=== PATIENT | female | born 1960 | race American Indian/Alaskan Native ===

== ENCOUNTER 2016-11-07 21:46 | Emergency (ER) | payer OTHER ==
[2016-11-07 21:46] VITALS: BMI 50.1
[2016-11-07 21:52] VITALS: TEMP 97.9
[2016-11-07 22:41] LABS: BASO % 0.8 % (0.0-2.0); EOS # 0.1 K/uL (0.0-0.7); EOS % 1.8 % (0.0-4.0); HEMOGLOBIN 12.3 g/dL (11.0-16.0); LYMPH # 1.9 K/uL (1.0-4.3); MEAN CELL VOLUME 76.1 fL (81.0-99.0); MEAN CORPUSCULAR HEMOGLOBIN 24.2 pg (27.0-31.0); MEAN CORPUSCULAR HGB CONC 31.8 g/dL (33.0-37.0); MEAN PLATELET VOLUME 8.2 fL (7.2-11.7); MONO # 0.4 K/uL (0.0-0.8); MONO % 7.4 % (0.0-10.0); NEUT # 3.2 K/uL (1.8-7.0); RBC 5.11 Mil/uL (3.80-5.20); RED CELL DISTRIBUTION WIDTH 13.6 % (11.5-14.5); WHITE BLOOD COUNT 5.7 K/uL (4.8-10.8)
[2016-11-07 22:56] LABS: ALBUMIN 4.2 g/dL (3.5-5.0)
[2016-11-07 22:59] LABS: ALB/GLOB RATIO 1.1 (1.0-2.1); AST/SGOT 44 U/L (14-36); GFR AFRICAN-AMERICAN 47; GFR NON-AFRICAN AMERICAN 39
[2016-11-07 23:00] LABS: ALT/SGPT 28 U/L (9-52); BLOOD UREA NITROGEN 49 mg/dL (7-17); CALCIUM 9.7 mg/dl (8.6-10.4)
[2016-11-07 23:09] LABS: B-TYPE NATRIURETIC PEPTIDE 90.3 pg/mL (0-900)
--- NOTE | 2016-11-07 23:23 | CT ---
EXAM: CT Head Without Intravenous Contrast CLINICAL HISTORY: 56 years old, female; Pain; Headache; Additional info: Breast ca, remission, new blurry vision TECHNIQUE: Axial computed tomography images of the head/brain without intravenous contrast. This CT exam was performed using one or more of the following dose reduction techniques: automated exposure control, adjustment of the mA and/or kV according to patient size, and/or use of iterative reconstruction technique. COMPARISON: No relevant prior studies available. FINDINGS: Brain: Hypodense foci in the white matter, likely related to chronic small vessel ischemic change. No intracranial mass, mass effect, or midline shift. No hemorrhage. Ventricles: Unremarkable. No ventriculomegaly. Bones/joints: Unremarkable. No acute fracture. Soft tissues: Unremarkable. Sinuses: Unremarkable as visualized. No acute sinusitis. Mastoid air cells: Unremarkable as visualized. No mastoid effusion. IMPRESSION: 1. No acute intracranial abnormality. 2. Remainder of findings as above.
--- NOTE | 2016-11-07 23:26 | C.PDOC ---
History Of Present Illness 56 year old female presents to the ED with complaints of weakness, dizziness, and blurred vision worsening for one week. Patient notes a history of breast CA that is in remission and followed by Dr. Darin Gibson. Patient has had an increased dose of Lasix to 40 mg PO BID but ran out yesterday, and admits to aggressively over drinking her diuretics- eating a lot of watermelon. She denies any nausea, vomiting, or fever. Time Seen by Provider: 11/07/16 22:20 Chief Complaint (Nursing): Medical Clearance History Per: Patient History/Exam Limitations: no limitations Onset/Duration Of Symptoms: Days (1 week) Current Symptoms Are (Timing): Still Present Reports Recently: Treated By A Physician Recent travel outside of the [place]: No Additional History Per: Prior Records Past Medical History Reviewed: Historical Data, Nursing Documentation, Vital Signs Vital Signs: Last Vital Signs Temp 97.9 F 11/07/16 21:49 Pulse 94 H 11/07/16 21:49 Resp 18 11/07/16 21:49 BP 137/83 11/07/16 21:49 Pulse Ox 99 11/07/16 23:39 - Medical History PMH: Asthma (CHILDHOOD NO MEDS), Fractures (TOE/ARM NO SURGERY), HTN, Malignancy (BREAST CANCER on chemotherapy), Pneumonia (Childhood) Surgical History: Denies: Pacemaker - [facility] Procedures CONTRAST PHLEBOGRAM NEC (04/10/14) DX ULTRASOUND-THORAX NEC (11/09/13) ENDO RECTUM POLYPECTOMY (11/30/12) INSERTION OF TOTALLY IMPLANTABLE VASC ACCESS DEVIC (11/09/13) LOCAL EXCIS BREAST LES (08/17/13) LYMPHATIC STRUCT BIOPSY (08/17/13) THORAX SFT TISS XRAY NEC (11/09/13) UNILAT EXTEN SIMP MASTEC (07/05/14) UNILAT REDUCT MAMMOPLAST (07/05/14) Family History: States: Unknown Family Hx - Social History Hx Tobacco Use: No Hx Alcohol Use: No Hx Substance Use: No - Immunization History Hx Tetanus Toxoid Vaccination: No Hx Influenza Vaccination: No Hx Pneumococcal Vaccination: No Review Of Systems Constitutional: Positive for: Weakness. Negative for: Fever, Chills ENT: Positive for: Other (blurry vision ) Cardiovascular: Negative for: Chest Pain, Palpitations Respiratory: Negative for: Cough, Shortness of Breath Gastrointestinal: Negative for: Nausea, Vomiting, Abdominal Pain, Diarrhea Neurological: Positive for: Dizziness Physical Exam - Physical Exam Appears: Non-toxic, No Acute Distress Skin: Warm, Dry, Other (Left Mastectomy ) Head: Atraumatic Eye(s): bilateral: Other (Left disonjugate gaze that is baseline. Otherwise normal vision. ) Oral Mucosa: Moist Neck: Supple Cardiovascular: Rhythm Regular Respiratory: Normal Breath Sounds, No Rhonchi, No Wheezing Gastrointestinal/Abdominal: Soft, No Tenderness, No Distention, No Guarding, No Rebound, Other (Abdomen morbidly obese) Extremity: Normal ROM, No Tenderness, No Calf Tenderness, Capillary Refill ( good capillary refill, less than 2 seconds ), Other (Mild edema of the lower extremities. Obese lower extremities. ) ED Course And Treatment - Laboratory Results Result Diagrams: 11/07/16 22:38 11/07/16 22:38 Lab Interpretation: Normal (mild CRI) ECG: Interpreted By Me ECG Rhythm: Sinus Rhythm ECG Interpretation: Normal Rate From EC O2 Sat by Pulse Oximetry: 99 (room air ) Pulse Ox Interpretation: Normal - Radiology CXR: Interpreted by Me, Viewed By [place] CXR Interpretation: Yes: No Acute Disease, Other (Poor inspiration, mediport in the left lung. ) Nexus Criteria: Negative - CT Scan/US CT Head Without Intravenous Contrast Other Rad Studies (CT/US): Read By Radiologist, Radiology Report Reviewed CT/US Interpretation: IMPRESSION: 1. No acute intracranial abnormality. Progress Note: EKG, CXR, and UA were performed. Reevaluation Time: 23:48 Reassessment Condition: Improved (symptoms much improved) Medical Decision Making Medical Decision Making: overdrinking diuretics, ran out of lasix today + mild CHF, legs more obese than edematous Extensively educated to balance fluid intake and lasix with leg edema though our eval is not to determine weather remission persists or if reactive cancer occurs, rather pt much relieved her s/s apparently not due to new CA/ Mets. Disposition Doctor Will See Patient In The: Office Counseled Patient/Family Regarding: Studies Performed, Diagnosis - Disposition Disposition: HOME/ ROUTINE Disposition Time: 23:49 Condition: GOOD Forms: [employer] Connect (Persian) - Clinical Impression Clinical Impression: Vision blurred, Edema of both legs - Scribe Statement The provider has reviewed the documentation as recorded by the Scribe Neela Hudson All medical record entries made by the Cayla were at my direction and personally dictated by me. I have reviewed the chart and agree that the record accurately reflects my personal performance of the history, physical exam, medical decision making, and the department course for this patient. I have also personally directed, reviewed, and agree with the discharge instructions and disposition.
[2016-11-08 00:01] VITALS: BP 124/84; PULSE 80; RESP 78; O2SAT 98
--- NOTE | 2016-11-08 08:24 | RAD ---
PROCEDURE: CHEST RADIOGRAPH, 1 VIEW HISTORY: Shortness of breath COMPARISON: 06/29/2016 FINDINGS: LUNGS: Biapical pleural thickening. Mild venous congestion. Bilateral hilar prominence. Patchy increased markings at the right lung base. Chain sutures noted at the right lung base. Left chest wall port in stable position. PLEURA: No pneumothorax or pleural fluid seen. CARDIOVASCULAR: Normal. OSSEOUS STRUCTURES: Degenerative changes in the spine and shoulders. VISUALIZED UPPER ABDOMEN: Normal. OTHER FINDINGS: None. IMPRESSION: Biapical pleural thickening. Mild venous congestion. Bilateral hilar prominence. Patchy increased markings at the right lung base. Chain sutures noted at the right lung base. Left chest wall port in stable position.
== END 2016-11-08 | disposition home or self-care (01) ==
LOC: C.ER 21:46
DX: H53.8 Other visual disturbances (principal); R60.0 Localized edema

== ENCOUNTER 2017-05-22 07:53 | Inpatient (IN) | payer OTHER ==
[2017-05-22 07:53] VITALS: BMI 50.1
--- NOTE | 2017-05-22 08:18 | C.PDOC ---
History Of Present Illness 57 years old female with history of right sided breast cancer status post mastectomy presents to ER with complaints of right arm swelling associated with shortness of breath for the past 2 weeks. Patient reports arm feels heavy, is painful, and worse with movement. Patient was seen by her oncologist and primary care physician and was sent to ER for further tests and imaging. Denies fever or chills. Onc: Darin Gibson PCP: Beck Morales Time Seen by Provider: 05/22/17 08:08 Chief Complaint (Nursing): Upper Extremity Problem/Injury History Per: Patient History/Exam Limitations: no limitations Onset/Duration Of Symptoms: Days (14) Current Symptoms Are (Timing): Still Present Recent travel outside of the [place]: No Past Medical History Reviewed: Historical Data, Nursing Documentation, Vital Signs Vital Signs: Last Vital Signs Temp 98.2 F 05/22/17 08:02 Pulse 81 05/22/17 11:34 Resp 20 05/22/17 11:34 BP 133/79 05/22/17 11:34 Pulse Ox 99 05/22/17 11:34 - Medical History PMH: Asthma (CHILDHOOD NO MEDS), Fractures (TOE/ARM NO SURGERY), HTN, Malignancy (BREAST CANCER on chemotherapy), Pneumonia (Childhood) Surgical History: Denies: Pacemaker - [facility] Procedures CONTRAST PHLEBOGRAM NEC (04/10/14) DX ULTRASOUND-THORAX NEC (11/09/13) ENDO RECTUM POLYPECTOMY (11/30/12) INSERTION OF TOTALLY IMPLANTABLE VASC ACCESS DEVIC (11/09/13) LOCAL EXCIS BREAST LES (08/17/13) LYMPHATIC STRUCT BIOPSY (08/17/13) THORAX SFT TISS XRAY NEC (11/09/13) UNILAT EXTEN SIMP MASTEC (07/05/14) UNILAT REDUCT MAMMOPLAST (07/05/14) Family History: States: Unknown Family Hx - Social History Hx Tobacco Use: No Hx Alcohol Use: No Hx Substance Use: No - Immunization History Hx Tetanus Toxoid Vaccination: No Hx Influenza Vaccination: No Hx Pneumococcal Vaccination: No Review Of Systems Constitutional: Negative for: Fever, Chills Respiratory: Positive for: Shortness of Breath. Negative for: Cough Gastrointestinal: Negative for: Nausea, Vomiting, Abdominal Pain, Diarrhea Musculoskeletal: Positive for: Other (Right arm swelling) Neurological: Negative for: Weakness, Numbness Physical Exam - Physical Exam Appears: Non-toxic, No Acute Distress, Other (Obese) Skin: Normal Color, Warm, Dry Head: Atraumatic, Normacephalic Eye(s): bilateral: Normal Inspection, EOMI Nose: Normal Oral Mucosa: Moist Neck: Normal ROM Chest: Symmetrical, No Tenderness, Other (right mastectomy, left mammoplasty) Cardiovascular: Rhythm Regular Respiratory: No Rales, No Rhonchi, Wheezing Gastrointestinal/Abdominal: Soft, No Tenderness Extremity: Tenderness, Pedal Edema (mild), Swelling (Right arm edematous, from axillary arm up to mid forearm), No Other (erythema) Pulses: Right Radial: Normal Neurological/Psych: Oriented x3, Normal Speech Gait: Steady ED Course And Treatment - Laboratory Results Result Diagrams: 05/22/17 08:48 05/22/17 09:25 Lab Interpretation: No Acute Changes ECG: Interpreted By Me, Viewed By Me ECG Rhythm: Sinus Rhythm ECG Interpretation: No Acute Changes O2 Sat by Pulse Oximetry: 99 (RA) Pulse Ox Interpretation: Normal - Other Rad CXR X-Ray: Viewed By Me, Read By Radiologist Interpretation: HISTORY: SOB. COMPARISON: Comparison is made with 2016. TECHNIQUE: Chest PA and lateral. FINDINGS: LUNGS: Interval appearance of approximately 1.5 centimeter nodule at the mid to upper portion of the right lung since the previous exam. There is oval-shaped opacity superior to the right hilum appears more conspicuous compared to the previous study. Otherwise no significant interval change. PLEURA: No significant pleural effusion identified. No pneumothorax apparent. CARDIOVASCULAR: Normal. OSSEOUS STRUCTURES: Mild irregularity noted at the right 6th rib without evidence of focal destruction P. VISUALIZED UPPER ABDOMEN: Normal. OTHER FINDINGS: Left-sided [id number] is again seen in place. IMPRESSION: Interval appearance of a new 1.5 centimeter nodule at the right lung. Right perihilar oval-shaped opacity more conspicuous compared to the previous exam. If indicated further assessment by CT may be obtained. Medical Decision Making Medical Decision Making: Impression: h/o Breast Ca, c.o right arm pain and swelling, SOB Plan: Administered Albuterol. Ordered EKG, blood work, CXR, blood culture, Flu AB swab, urinalysis and doppler. Progress: patient has Rx from PCP and Dr Gibson, needs further testing. Will admit patient. Dr Morales does not have admitting privileges , will admit to med acquisition analyst DR Nate Mitchell Arterial PVR/Pressures (Doppler): Mass/ complex structure noted in the right and left shoulder (anterior) Rt. measured Appx: 3-6 x 4.6 cm Lt measured Appx: 1.2 x 2.1 cm Some vascular activity noted on right mass. Disposition Counseled Patient/Family Regarding: Diagnosis, Need For Followup - Disposition Disposition: HOSPITALIZED Disposition Time: 11:31 Condition: STABLE - POA Present On Arrival: None - Clinical Impression Clinical Impression: Edema of both legs, Breast cancer in female, Dyspnea - PA / HUMAN RESOURCES REPRESENTATIVE / Resident Statement MD/DO has reviewed & agrees with the documentation as recorded. - Scribe Statement The provider has reviewed the documentation as recorded by the Scribanthony Lo All medical record entries made by the Ericaibanthony were at my direction and personally dictated by me. I have reviewed the chart and agree that the record accurately reflects my personal performance of the history, physical exam, medical decision making, and the department course for this patient. I have also personally directed, reviewed, and agree with the discharge instructions and disposition.
[2017-05-22] MEDS ORDERED: Albuterol 0.083% Inhal Sol (2.5 mg/3 mL) UD IH STA (08:24)
[2017-05-22 08:57] LABS: BASO % 0.5 % (0.0-2.0); EOS # 0.1 K/uL (0.0-0.7); EOS % 2.1 % (0.0-4.0); HEMOGLOBIN 11.8 g/dL (11.0-16.0); LYMPH # 1.1 K/uL (1.0-4.3); LYMPH % 18.9 % (20.0-40.0); MEAN CELL VOLUME 74.5 fL (81.0-99.0); MEAN CORPUSCULAR HEMOGLOBIN 25.2 pg (27.0-31.0); MEAN CORPUSCULAR HGB CONC 33.8 g/dL (33.0-37.0); MEAN PLATELET VOLUME 7.5 fL (7.2-11.7); MONO # 0.2 K/uL (0.0-0.8); MONO % 4.3 % (0.0-10.0); NEUT # 4.1 K/uL (1.8-7.0); NEUT % 74.2 % (50.0-75.0); RBC 4.68 Mil/uL (3.80-5.20); RED CELL DISTRIBUTION WIDTH 14.6 % (11.5-14.5); WHITE BLOOD COUNT 5.6 K/uL (4.8-10.8)
[2017-05-22] MEDS ORDERED: Albuterol-Ipratrop 3 mg / 0.5 (3 ml) UD ONE (08:57)
[2017-05-22 09:05] LABS: INR 1.1; PROTHROMBIN TIME 12.5 SECONDS (9.7-12.2)
[2017-05-22 09:45] LABS: ALBUMIN 3.9 g/dL (3.5-5.0); ALT/SGPT 21 U/L (9-52); AST/SGOT 24 U/L (14-36); BLOOD UREA NITROGEN 16 mg/dL (7-17); CALCIUM 9.4 mg/dl (8.6-10.4); GFR AFRICAN-AMERICAN > 60; GFR NON-AFRICAN AMERICAN > 60
--- NOTE | 2017-05-22 10:02 | RAD ---
HISTORY: SOB COMPARISON: Comparison is made with 11/07/2016 TECHNIQUE: Chest PA and lateral FINDINGS: LUNGS: Interval appearance of approximately 1.5 centimeter nodule at the mid to upper portion of the right lung since the previous exam. There is oval-shaped opacity superior to the right hilum appears more conspicuous compared to the previous study. Otherwise no significant interval change. PLEURA: No significant pleural effusion identified. No pneumothorax apparent. CARDIOVASCULAR: Normal. OSSEOUS STRUCTURES: Mild irregularity noted at the right 6th rib without evidence of focal destruction P VISUALIZED UPPER ABDOMEN: Normal. OTHER FINDINGS: Left-sided [id number] is again seen in place. IMPRESSION: Interval appearance of a new 1.5 centimeter nodule at the right lung. Right perihilar oval-shaped opacity more conspicuous compared to the previous exam. If indicated further assessment by CT may be obtained.
[2017-05-22 12:36] LABS: SQUAMOUS EPITHIAL 4 /hpf (0-5); URINE BILIRUBIN NEGATIVE (NEGATIVE); URINE BLOOD NEGATIVE (NEGATIVE); URINE CLARITY Hazy (Clear); URINE COLOR Yellow (YELLOW); URINE GLUCOSE (UA) NORMAL (Normal); URINE LEUKOCYTE ESTERASE 2+ Leu/uL (Negative); URINE NITRATE NEGATIVE (NEGATIVE); URINE PROTEIN NEGATIVE (NEGATIVE)
[2017-05-22] MEDS ORDERED: Iodixanol 320 MG/ML 100 ML BOTTLE IV ONE (16:54)
--- NOTE | 2017-05-22 17:05 | CP.PCM.CON ---
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 She was seen in my office n Wednesday and had a swollen and painful RUE. She notes to bone pain at her back and scapula. She denies weightloss and reports her energy level has been okay. She has no headaches. Past medical history: Breast cancer Past surgical history: Right mastectomy with axillar LN dissection, left reductive mammoplasy Family history: Brother had renal cell carcinoma Social history: Denies tobacco, alcohol, and illicit drug use. Allergies: NKA Review of systems: All remaining review of systems including HEENT, cardiovascular, respiratory, gastrointestinal, genitourinary, musculoskeletal, dermatologic, neurologic, and psychiatric are negative unless mentioned in the HPI. Past Patient History - Past Medical History & Family History Past Medical History?: Yes - Past Social History Smoking Status: Never Smoked - CARDIAC Hx Hypertension: Yes Hx Pacemaker: No - PULMONARY Hx Asthma: Yes (CHILDHOOD NO MEDS) Hx Pneumonia: Yes (Childhood) - NEUROLOGICAL Hx Neurological Disorder: No - HEENT Hx HEENT Problems: No Other/Comment: GLASSES - RENAL Hx Chronic Kidney Disease: No - ENDOCRINE/METABOLIC Hx Endocrine Disorders: No - HEMATOLOGICAL/ONCOLOGICAL Hx Cancer: Yes (breast) - INTEGUMENTARY Hx Dermatological Problems: No - MUSCULOSKELETAL/RHEUMATOLOGICAL Hx Fractures: Yes (TOE/ARM NO SURGERY) - GENITOURINARY/GYNECOLOGICAL Hx Genitourinary Disorders: Yes Other/Comment: right breast cancer - PSYCHIATRIC Hx Substance Use: No - SURGICAL HISTORY Hx Surgeries: Yes Hx Section: Yes (one) Other/Comment: breast removal s/p breast ca july 2014. - ANESTHESIA Hx Anesthesia: Yes Hx Anesthesia Reactions: No Hx Malignant Hyperthermia: No Meds Allergies/Adverse Reactions: Allergies Allergy/AdvReac Type Severity Reaction Status Date / Time No Known Allergies Allergy Verified 05/22/17 08:01 - Medications Medications: Current Medications Albuterol/Ipratropium (Duoneb 3 Mg/0.5 Mg (3 Ml) Ud) 3 ml INH RQ6 SARAH Anastrozole (Arimidex 1 Mg Tab) 1 mg PO DAILY [facility] Enoxaparin Sodium (Lovenox) 40 mg SC DAILY [facility] Gabapentin (Neurontin) 400 mg PO TID [facility] Hydrochlorothiazide (Hydrodiuril) 25 mg PO DAILY [facility] Ceftriaxone Sodium 1 gm/ (Sodium Chloride) 100 mls @ 100 mls/hr IVPB DAILY [facility] Azithromycin 500 mg/ Sodium (Chloride) 250 mls @ 250 mls/hr IVPB DAILY [facility] Lisinopril (Zestril) 20 mg PO DAILY [facility] Mometasone Furoate (Asmanex Twisthaler 220 Mcg) 220 puff IH DAILY [facility] Pantoprazole Sodium (Protonix Ec Tab) 40 mg PO DAILY [facility] Tramadol HCl (Ultram) 50 mg PO Q6H PRN PRN Reason: Pain, severe (8-10) Physical Exam - Head Exam Head Exam: ATRAUMATIC - Eye Exam Eye Exam: Normal appearance - ENT Exam ENT Exam: Mucous Membranes Dry - Respiratory Exam Respiratory Exam: NORMAL BREATHING PATTERN - Cardiovascular Exam Cardiovascular Exam: +S1, +S2 - GI/Abdominal Exam GI & Abdominal Exam: Normal Bowel Sounds - Extremities Exam Extremities exam: Positive for: pedal edema - Neurological Exam Neurological exam: Oriented x3 - Psychiatric Exam Psychiatric exam: Normal Affect, Normal Mood - Skin Skin Exam: Warm Results - Vital Signs Recent Vital Signs: Last Vital Signs Temp 98.2 F 05/22/17 08:02 Pulse 83 05/22/17 15:15 Resp 20 05/22/17 15:15 BP 128/72 05/22/17 15:15 Pulse Ox 98 05/22/17 15:15 - Labs Result Diagrams: 05/22/17 08:48 05/22/17 09:25 Labs: Laboratory Results - last 24 hr 05/22/1718 05/22/17 08:18 08:48 08:48 WBC 5.6 RBC 4.68 Hgb 11.8 Hct 34.9 MCV 74.5 L MCH 25.2 L MCHC 33.8 RDW 14.6 H Plt Count 371 MPV 7.5 Neut % (Auto) 74.2 Lymph % (Auto) 18.9 L [place] % (Auto) 4.3 Eos % (Auto) 2.1 Baso % (Auto) 0.5 Neut # (Auto) 4.1 Lymph # (Auto) 1.1 Joseph[place] # (Auto) 0.2 Eos # (Auto) 0.1 Baso # (Auto) 0.0 PT 12.5 H INR 1.1 APTT 31 Sodium Potassium Chloride Carbon Dioxide Anion Gap BUN Creatinine Est GFR ( Amer) Est GFR (Non-Af Amer) Random Glucose Calcium Total Bilirubin AST ALT Alkaline Phosphatase NT-Pro-B Natriuret Pep Total Protein Albumin Globulin Albumin/Globulin Ratio Urine Color Urine Clarity Urine pH Ur Specific [place] Urine Protein Urine Glucose (UA) Urine Ketones Urine Blood Urine Nitrate Urine Bilirubin Urine Urobilinogen Ur Leukocyte Esterase Urine WBC (Auto) Urine RBC (Auto) Ur Squamous Epith Cells Influenza Typ A,B (EIA) Negative for flu a/b 05/22/17 05/22/17 09:25 12:01 WBC RBC Hgb Hct MCV MCH MCHC RDW Plt Count MPV Neut % (Auto) Lymph % (Auto) [place] % (Auto) Eos % (Auto) Baso % (Auto) Neut # (Auto) Lymph # (Auto) [place] # (Auto) Eos # (Auto) Baso # (Auto) PT INR APTT Sodium 138 Potassium 3.5 L Chloride 96 L Carbon Dioxide 32 H Anion Gap 13 BUN 16 Creatinine 0.9 Est GFR ( Amer) > 60 Est GFR (Non-Af Amer) > 60 Random Glucose 98 Calcium 9.4 Total Bilirubin 0.8 AST 24 ALT 21 Alkaline Phosphatase 110 NT-Pro-B Natriuret Pep 91.0 Total Protein 7.7 Albumin 3.9 Globulin 3.9 Albumin/Globulin Ratio 1.0 Urine Color Yellow Urine Clarity Hazy Urine pH 7.0 Ur Specific [place] 1.021 Urine Protein Negative Urine Glucose (UA) Normal Urine Ketones Negative Urine Blood Negative Urine Nitrate Negative Urine Bilirubin Negative Urine Urobilinogen 4.0 H Ur Leukocyte Esterase 2+ H Urine WBC (Auto) 6 H Urine RBC (Auto) 4 H Ur Squamous Epith Cells 4 Influenza Typ A,B (EIA) Assessment & Plan (1) Swelling of right upper extremity Assessment and Plan: rule out DVT, rule out recurrent breast cancer ultrasound performed but results not read yet Status: Acute (2) Breast cancer Assessment and Plan: s/p surgery, chemo, radiation on anastrozole 1mg daily; will restart CT C/A/P and US RUE to rule out recurrent disease Thank you for this interesting consult. Status: Acute
[2017-05-22] MEDS ORDERED: Iohexol 240 (50 ml) PO ONE (17:13)
--- NOTE | 2017-05-22 17:57 | CP.PCM.HP ---
Past Patient History - Past Medical History & Family History Past Medical History?: Yes - Past Social History Smoking Status: Never Smoked - CARDIAC Hx Hypertension: Yes Hx Pacemaker: No - PULMONARY Hx Asthma: Yes (CHILDHOOD NO MEDS) Hx Pneumonia: Yes (Childhood) - NEUROLOGICAL Hx Neurological Disorder: No - HEENT Hx HEENT Problems: No Other/Comment: GLASSES - RENAL Hx Chronic Kidney Disease: No - ENDOCRINE/METABOLIC Hx Endocrine Disorders: No - HEMATOLOGICAL/ONCOLOGICAL Hx Cancer: Yes (breast) - INTEGUMENTARY Hx Dermatological Problems: No - MUSCULOSKELETAL/RHEUMATOLOGICAL Hx Fractures: Yes (TOE/ARM NO SURGERY) - GENITOURINARY/GYNECOLOGICAL Hx Genitourinary Disorders: Yes Other/Comment: right breast cancer - PSYCHIATRIC Hx Substance Use: No - SURGICAL HISTORY Hx Surgeries: Yes Hx Section: Yes (one) Other/Comment: breast removal s/p breast ca july 2014. - ANESTHESIA Hx Anesthesia: Yes Hx Anesthesia Reactions: No Hx Malignant Hyperthermia: No Meds Allergies/Adverse Reactions: Allergies Allergy/AdvReac Type Severity Reaction Status Date / Time No Known Allergies Allergy Verified 05/22/17 08:01 Physical Exam - Constitutional Appears: Well - Head Exam Head Exam: ATRAUMATIC, NORMAL INSPECTION, NORMOCEPHALIC - Eye Exam Eye Exam: EOMI, Normal appearance, PERRL Pupil Exam: NORMAL ACCOMODATION, PERRL - ENT Exam ENT Exam: Mucous Membranes Moist, Normal Exam - Neck Exam Neck exam: Positive for: Normal Inspection - Respiratory Exam Respiratory Exam: Decreased Breath Sounds - Cardiovascular Exam Cardiovascular Exam: REGULAR RHYTHM, +S1, +S2 - GI/Abdominal Exam GI & Abdominal Exam: Diminished Bowel Sounds, Soft - Rectal Exam Rectal Exam: Deferred Results - Vital Signs Recent Vital Signs: Last Vital Signs Temp 98.2 F 05/22/17 08:02 Pulse 77 05/22/17 16:21 Resp 20 05/22/17 16:21 BP 128/69 05/22/17 16:21 Pulse Ox 99 05/22/17 17:30 - Labs Result Diagrams: 05/22/17 08:48 05/22/17 09:25 Labs: Laboratory Results - last 24 hr 05/22/17 05/22/17 05/22/17 08:18 08:48 08:48 WBC 5.6 RBC 4.68 Hgb 11.8 Hct 34.9 MCV 74.5 L MCH 25.2 L MCHC 33.8 RDW 14.6 H Plt Count 371 MPV 7.5 Neut % (Auto) 74.2 Lymph % (Auto) 18.9 L [place] % (Auto) 4.3 Eos % (Auto) 2.1 Baso % (Auto) 0.5 Neut # (Auto) 4.1 Lymph # (Auto) 1.1 [place] # (Auto) 0.2 Eos # (Auto) 0.1 Baso # (Auto) 0.0 PT 12.5 H INR 1.1 APTT 31 Sodium Potassium Chloride Carbon Dioxide Anion Gap BUN Creatinine Est GFR ( Amer) Est GFR (Non-Af Amer) Random Glucose Calcium Total Bilirubin AST ALT Alkaline Phosphatase NT-Pro-B Natriuret Pep Total Protein Albumin Globulin Albumin/Globulin Ratio Urine Color Urine Clarity Urine pH Ur Specific [place] Urine Protein Urine Glucose (UA) Urine Ketones Urine Blood Urine Nitrate Urine Bilirubin Urine Urobilinogen Ur Leukocyte Esterase Urine WBC (Auto) Urine RBC (Auto) Ur Squamous Epith Cells Influenza Typ A,B (EIA) Negative for flu a/b 05/22/17 05/22/17 09:25 12:01 WBC RBC Hgb Hct MCV MCH MCHC RDW Plt Count MPV Neut % (Auto) Lymph % (Auto) [place] % (Auto) Eos % (Auto) Baso % (Auto) Neut # (Auto) Lymph # (Auto) [place] # (Auto) Eos # (Auto) Baso # (Auto) PT INR APTT Sodium 138 Potassium 3.5 L Chloride 96 L Carbon Dioxide 32 H Anion Gap 13 BUN 16 Creatinine 0.9 Est GFR ( Amer) > 60 Est GFR (Non-Af Amer) > 60 Random Glucose 98 Calcium 9.4 Total Bilirubin 0.8 AST 24 ALT 21 Alkaline Phosphatase 110 NT-Pro-B Natriuret Pep 91.0 Total Protein 7.7 Albumin 3.9 Globulin 3.9 Albumin/Globulin Ratio 1.0 Urine Color Yellow Urine Clarity Hazy Urine pH 7.0 Ur Specific [place] 1.021 Urine Protein Negative Urine Glucose (UA) Normal Urine Ketones Negative Urine Blood Negative Urine Nitrate Negative Urine Bilirubin Negative Urine Urobilinogen 4.0 H Ur Leukocyte Esterase 2+ H Urine WBC (Auto) 6 H Urine RBC (Auto) 4 H Ur Squamous Epith Cells 4 Influenza Typ A,B (EIA)
[2017-05-22 19:20] LABS: ABG ALLEN TEST POS; ARTERIAL BLOOD GAS HCO3 29.3 mmol/L (21-28); ARTERIAL BLOOD GAS HEMOGLOBIN 10.5 g/dL (11.7-17.4); ARTERIAL BLOOD GAS O2 SAT 100.6 % (95-98); ARTERIAL BLOOD GAS PCO2 35 mm/Hg (35-45); ARTERIAL BLOOD GAS PH 7.52 (7.35-7.45); ARTERIAL BLOOD GAS PO2 305 mm/Hg (80-100); ARTERIAL BLOOD GAS TCO2 29.7 mmol/L (22-28)
[2017-05-22] MEDS: Albuterol-Ipratrop 3 mg / 0.5 (3 ml) UD INH SCH (19:48)
[2017-05-22] MEDS: Enoxaparin 120 mg Syringe SC SCH (19:59)
--- NOTE | 2017-05-22 20:38 | CT ---
EXAM: CT Angiography Chest With Intravenous Contrast EXAM DATE/TIME: 05/22/2017 7:13 PM CLINICAL HISTORY: 57 years old, female; Signs and symptoms; Dyspnea and shortness of breath; Additional info: Shortness of breathe, R/O pe; breast cancer in TECHNIQUE: Axial computed tomographic angiography images of the chest with intravenous contrast using pulmonary embolism protocol. All CT scans at this facility use one or more dose reduction techniques, viz.: automated exposure control; ma/kV adjustment per patient size (including targeted exams where dose is matched to indication; i.e. head); or iterative reconstruction technique. MIP reconstructed images were created and reviewed. Coronal and sagittal reformatted images were created and reviewed. CONTRAST: 100 mL of VISIPAQUE 320 administered intravenously. COMPARISON: There are no prior studies for comparison. FINDINGS: Heart, aorta and Pulmonary arteries: Contrast is injected from a left upper extremity approach. There is a persistent left superior vena cava. The heart is mildly enlarged.There is fluid in pericardial recesses.There is no aneurysm or dissection. There is perfusion of the 3 arch vessels. Main pulmonary artery is mildly dilated 4 cm in diameter. There is encasement of the right pulmonary artery and its major branches.There are no pulmonary emboli. Lungs and pleural spaces: Trachea and main bronchi are patent. There is patchy airspace disease at the right apex. There are multiple right upper lobe pulmonary nodules too numerous to count. There right lower lobe pulmonary nodules. Largest measures approximately 2.9 x 3.67 m, image 97 series 2. There is scarring and volume loss in the right middle lobe. There are surgical clips in the right middle lobe. There is atelectasis/scarring in the right costophrenic sulcus. There is atelectasis/scarring at the left base. There are occasional small left upper lobe pulmonary nodules. There are no left lower lobe nodules. There is no lobar or segmental consolidation. There are no effusions. Mediastinum: There is paratracheal, right hilar and subcarinal adenopathy. Esophagus is unremarkable. Thyroid: Thyroid is not optimally demonstrated. Bones/joints: Bony structures are osteopenic. There are bridging osteophytes and syndesmophytes throughout the visualized spine. There is partial ankylosis of spinous processes. There is ankylosis of multiple costovertebral joints. There is a heterogeneous sclerotic lesion in the head of the right clavicle. Soft tissues: There is a Port-A-Cath in the left chest wall. Catheter tip is not well-visualized. Lymph nodes: There is shotty axillary nodes. There is skin thickening and scarring in the right chest wall Upper abdomen: There are no acute abnormalities in the visualized portion of the abdomen. IMPRESSION: Multiple bilateral pulmonary nodules right greater than left consistent with metastatic disease; mediastinal and right hilar adenopathy also suspicious for metastatic disease; minimal patchy airspace disease in the right apex; mild cardiomegaly, no aortic aneurysm, dissection or pulmonary embolus Additional nonemergent findings as described above. Additional nonemergent findings as described above.
--- NOTE | 2017-05-22 20:48 | CT ---
EXAM: CT Abdomen and Pelvis With Intravenous Contrast EXAM DATE/TIME: 05/22/2017 4:10 PM CLINICAL HISTORY: 57 years old, female; Pain; Abdominal pain; Flank; Right upper quadrant (ruq); Additional info: HX of breast cancer ? recurrence TECHNIQUE: Axial computed tomography images of the abdomen and pelvis with intravenous contrast. All CT scans at this facility use one or more dose reduction techniques, viz.: automated exposure control; ma/kV adjustment per patient size (including targeted exams where dose is matched to indication; i.e. head); or iterative reconstruction technique. Coronal and sagittal reformatted images were created and reviewed. CONTRAST: 0 mL of VISIPAQUE 320 administered intravenously. COMPARISON: Prior images are not available for review. FINDINGS: Artifacts: Streak artifact degrades image quality. Motion artifact degrades image quality. Lower thorax: The heart is mildly enlarged. There is a small hiatal hernia. There is a 1.4 x 1.6 and meter right lower lobe pulmonary nodule. There is scarring with surgical clips and calcification in the right middle lobe. There is atelectasis/scarring at both lung bases. ABDOMEN: Liver: The liver is enlarged. Gallbladder and bile ducts: unremarkable Pancreas: Pancreas is mildly atrophic. Spleen: unremarkable Adrenals: unremarkable Kidneys and ureters: There is a low attenuation left renal lesion too small to characterize. Kidneys and ureters are otherwise unremarkable. Stomach and bowel: Stomach is partially distended. Rotation is normal. Small bowel is incompletely opacified with oral contrast. There is no obstruction. Ileocecal region is unremarkable. Appendix and terminal ileum are unremarkable. Streak and motion limit evaluation of the colon. Colon is incompletely distended which limits evaluation. Appendix: See stomach and bowel PELVIS: Bladder: unremarkable Reproductive: Uterus and adnexal structures are unremarkable. ABDOMEN and PELVIS: Intraperitoneal space: There is no free air or free fluid. Bones/joints: There are degenerative changes in the osseus structures. There is a sclerotic lesion at L3. There is a sclerotic lesion in the sacrum. Soft tissues: There is a fat-containing umbilical hernia. Vasculature: Vascular structures are unremarkable. Lymph nodes: There is no pathologic adenopathy. IMPRESSION: Right lower lobe pulmonary nodule suspicious for metastatic disease; hepatomegaly, no acute solid visceral or bowel abnormality; sclerotic lesions in L3 and in the sacrum metastatic disease cannot be excluded Additional nonemergent findings as described above.
[2017-05-23] MEDS: Albuterol-Ipratrop 3 mg / 0.5 (3 ml) UD INH SCH ×3 (01:30→20:47)
[2017-05-23] MEDS: Enoxaparin 120 mg Syringe SC SCH ×2 (06:24→17:57)
[2017-05-23] MEDS: Azithromycin 500 MG in Sodium Chloride 0.9% 250 ML IVPB SCH (09:22)
[2017-05-23] MEDS ORDERED: Mometasone 220 mcg/puff-14 puff Inh IH SCH (10:00)
[2017-05-23] MEDS ORDERED: Enoxaparin 40 mg Syringe SC SCH (10:00)
[2017-05-23] MEDS ORDERED: Pantoprazole 40 mg EC Tab PO SCH (10:00)
--- NOTE | 2017-05-23 13:54 | CP.PCM.PN ---
Subjective - Date & Time of Evaluation Date of Evaluation: 05/23/17 Time of Evaluation: 11:40 - Subjective Subjective: clinically same Objective - Vital Signs/Intake and Output Vital Signs (last 24 hours): Temp Pulse Resp BP Pulse Ox 97.6 F 66 20 107/70 98 05/23/17 08:00 05/23/17 08:00 05/23/17 08:00 05/23/17 08:00 05/23/17 08:00 Intake and Output: 05/23/17 05/23/17 06:59 18:59 Intake Total 200 Balance 200 - Medications Medications: Current Medications Albuterol/Ipratropium (Duoneb 3 Mg/0.5 Mg (3 Ml) Ud) 3 ml INH RQ6 [facility] Last Admin: 05/23/17 07:31 Dose: 3 ml Anastrozole (Arimidex 1 Mg Tab) 1 mg PO DAILY [facility] Last Admin: 05/23/17 10:04 Dose: 1 mg Enoxaparin Sodium (Lovenox) 120 mg SC Q12H [facility] Last Admin: 05/23/17 06:24 Dose: 120 mg Gabapentin (Neurontin) 400 mg PO TID [facility] Last Admin: 05/23/17 09:30 Dose: 400 mg Hydrochlorothiazide (Hydrodiuril) 25 mg PO DAILY [facility] Last Admin: 05/23/17 09:31 Dose: 25 mg Ceftriaxone Sodium 1 gm/ (Sodium Chloride) 100 mls @ 100 mls/hr IVPB DAILY [facility] Last Admin: 05/23/17 11:10 Dose: 100 mls/hr Azithromycin 500 mg/ Sodium (Chloride) 250 mls @ 250 mls/hr IVPB DAILY [facility] Last Admin: 05/23/17 09:22 Dose: 250 mls/hr Lisinopril (Zestril) 20 mg PO DAILY [facility] Last Admin: 05/23/17 09:32 Dose: 20 mg Mometasone Furoate (Asmanex Twisthaler 220 Mcg) 220 puff IH DAILY [facility] Pantoprazole Sodium (Protonix Inj) 40 mg IVP DAILY [facility] Last Admin: 05/23/17 09:22 Dose: 40 mg Tramadol HCl (Ultram) 50 mg PO Q6H PRN PRN Reason: Pain, severe (8-10) - Labs Labs: 05/22/17 08:48 02/17/18 09:25 PT 12.5 SECONDS (9.7-12.2) H 05/22/17 08:48 INR 1.1 05/22/17 08:48 APTT 31 SECONDS (21-34) 05/22/17 08:48 - Constitutional Appears: Well - Head Exam Head Exam: ATRAUMATIC, NORMAL INSPECTION, NORMOCEPHALIC - Eye Exam Eye Exam: EOMI, Normal appearance, PERRL Pupil Exam: NORMAL ACCOMODATION, PERRL - ENT Exam ENT Exam: Mucous Membranes Moist, Normal Exam - Neck Exam Neck Exam: Full ROM, Normal Inspection. absent: Lymphadenopathy - Respiratory Exam Respiratory Exam: Decreased Breath Sounds - Cardiovascular Exam Cardiovascular Exam: REGULAR RHYTHM, +S1, +S2 - GI/Abdominal Exam GI & Abdominal Exam: Soft, Diminished Bowel Sounds - Rectal Exam Rectal Exam: Deferred Assessment and Plan - Assessment and Plan (Free Text) Plan: arterial PVR/Pressures (Doppler): Mass/ complex structure noted in the right and left shoulder (anterior) Rt. measured Appx: 3-6 x 4.6 cm Lt measured Appx: 1.2 x 2.1 cm Some vascular activity noted on right mass followup by dr. cleary vasc surg cnsult with dr. cleary.. venous doppler telemtry s/p dr sweta pulido with rocephin and zithromax
--- NOTE | 2017-05-23 19:14 | CP.PCM.CON ---
History of Present Illness - History of Present Illness History of Present Illness: reason for consultatio: shortness of breath Patient is 57 year old female with breast cancer status post right mastectomy presented to emergency room complaining of right arm swelling, shortness of breath progressively worsening for the past 2 weeks. patient as seen by her oncologist and advised her to go to the emergency room. Denies fever chills, denies chest pain. CAT scan of the chest with contrast showed no pulmonary embolism but consistent with possible metastatic dise/pneumonia Review of Systems - Review of Systems All systems: reviewed and no additional remarkable complaints except (shortness of breath) Past Patient History - Past Medical History & Family History Past Medical History?: Yes - Past Social History Smoking Status: Never Smoked - CARDIAC Hx Hypertension: Yes Hx Pacemaker: No - PULMONARY Hx Asthma: Yes (CHILDHOOD NO MEDS) Hx Pneumonia: Yes (Childhood) - NEUROLOGICAL Hx Neurological Disorder: No - HEENT Hx HEENT Problems: No Other/Comment: GLASSES - RENAL Hx Chronic Kidney Disease: No - ENDOCRINE/METABOLIC Hx Endocrine Disorders: No - HEMATOLOGICAL/ONCOLOGICAL Hx Cancer: Yes (breast) - INTEGUMENTARY Hx Dermatological Problems: No - MUSCULOSKELETAL/RHEUMATOLOGICAL Hx Falls: No Hx Fractures: Yes (TOE/ARM NO SURGERY) - GENITOURINARY/GYNECOLOGICAL Hx Genitourinary Disorders: Yes Other/Comment: right breast cancer - PSYCHIATRIC Hx Substance Use: No - SURGICAL HISTORY Hx Surgeries: Yes Hx Section: Yes (one) Other/Comment: breast removal s/p breast ca july 2014. - ANESTHESIA Hx Anesthesia: Yes Hx Anesthesia Reactions: No Hx Malignant Hyperthermia: No Meds Allergies/Adverse Reactions: Allergies Allergy/AdvReac Type Severity Reaction Status Date / Time No Known Allergies Allergy Verified 05/22/17 08:01 - Medications Medications: Current Medications Albuterol/Ipratropium (Duoneb 3 Mg/0.5 Mg (3 Ml) Ud) 3 ml INH RQ6 [facility] Last Admin: 05/23/17 07:31 Dose: 3 ml Anastrozole (Arimidex 1 Mg Tab) 1 mg PO DAILY [facility] Last Admin: 05/23/17 10:04 Dose: 1 mg Enoxaparin Sodium (Lovenox) 40 mg SC DAILY [facility] Gabapentin (Neurontin) 400 mg PO TID [facility] Last Admin: 05/23/17 17:57 Dose: 400 mg Hydrochlorothiazide (Hydrodiuril) 25 mg PO DAILY [facility] Last Admin: 05/23/17 09:31 Dose: 25 mg Ceftriaxone Sodium 1 gm/ (Sodium Chloride) 100 mls @ 100 mls/hr IVPB DAILY [facility] Last Admin: 05/23/17 11:10 Dose: 100 mls/hr Azithromycin 500 mg/ Sodium (Chloride) 250 mls @ 250 mls/hr IVPB DAILY [facility] Last Admin: 05/23/17 09:22 Dose: 250 mls/hr Lisinopril (Zestril) 20 mg PO DAILY [facility] Last Admin: 05/23/17 09:32 Dose: 20 mg Mometasone Furoate (Asmanex Twisthaler 220 Mcg) 220 puff IH DAILY [facility] Pantoprazole Sodium (Protonix Inj) 40 mg IVP DAILY [facility] Last Admin: 05/23/17 09:22 Dose: 40 mg Tramadol HCl (Ultram) 50 mg PO Q6H PRN PRN Reason: Pain, severe (8-10) Last Admin: 05/23/17 14:12 Dose: 50 mg Physical Exam - Head Exam Head Exam: ATRAUMATIC, NORMOCEPHALIC - Eye Exam Eye Exam: Normal appearance - ENT Exam ENT Exam: Mucous Membranes Moist - Neck Exam Neck exam: Positive for: Normal Inspection - Respiratory Exam Respiratory Exam: Decreased Breath Sounds - Cardiovascular Exam Cardiovascular Exam: REGULAR RHYTHM Results - Vital Signs Recent Vital Signs: Last Vital Signs Temp 98.0 F 05/23/17 17:07 Pulse 70 05/23/17 17:07 Resp 20 05/23/17 17:07 BP 107/71 05/23/17 17:07 Pulse Ox 96 05/23/17 17:07 - Labs Result Diagrams: 05/22/17 08:48 05/22/17 09:25 Labs: Laboratory Results - last 24 hr 05/22/17 19:16 Puncture Site Rba pCO2 35 pO2 305 H HCO3 29.3 H ABG pH 7.52 H ABG Total CO2 29.7 H ABG O2 Saturation 100.6 H ABG Base Excess 5.6 H ABG Hemoglobin 10.5 L ABG Carboxyhemoglobin 2.5 H POC ABG HHb (Measured) -0.6 L ABG Methemoglobin 1.6 Williams Test Pos A-a O2 Difference 364.0 Respiratory Index 1.2 Hgb O2 Saturation 96.4 Vent Mode Bipap FiO2 100.0 Inspiratory BiPAP 10 Expiratory BiPAP 5 Assessment & Plan - Assessment and Plan (Free Text) Assessment: 57 years old female with history of right sided breast cancer status post mastectomy presents to ER with complaints of right arm swelling associated with shortness of breath for the past 2 weeks. shortness of breath most likely secondary to pneumonia/ Continue IV antibiotics Nebulizer treatment BiPAP as needed IV steroids
[2017-05-23] MEDS: MethylPREDNISolone 40 mg Vial IVP SCH (21:58)
[2017-05-24] MEDS: Albuterol-Ipratrop 3 mg / 0.5 (3 ml) UD INH SCH ×4 (02:05→20:10)
[2017-05-24] MEDS: MethylPREDNISolone 40 mg Vial IVP SCH ×3 (05:18→21:08)
[2017-05-24] MEDS: Potassium Chloride 10 mEq ER Tab PO SCH (08:47)
[2017-05-24] MEDS: Enoxaparin 40 mg Syringe SC SCH (09:30)
[2017-05-24] MEDS: Azithromycin 500 MG in Sodium Chloride 0.9% 250 ML IVPB SCH (10:55)
[2017-05-24 12:02] LABS: BASO % 0.1 % (0.0-2.0); HEMOGLOBIN 11.5 g/dL (11.0-16.0); LYMPH # 0.4 K/uL (1.0-4.3); LYMPH % 7.5 % (20.0-40.0); MEAN CELL VOLUME 74.7 fL (81.0-99.0); MEAN CORPUSCULAR HEMOGLOBIN 24.5 pg (27.0-31.0); MEAN CORPUSCULAR HGB CONC 32.8 g/dL (33.0-37.0); MEAN PLATELET VOLUME 7.9 fL (7.2-11.7); MONO % 0.6 % (0.0-10.0); NEUT # 4.5 K/uL (1.8-7.0); NEUT % 91.8 % (50.0-75.0); PLATELET COUNT 350 K/uL (130-400); RBC 4.67 Mil/uL (3.80-5.20); RED CELL DISTRIBUTION WIDTH 14.7 % (11.5-14.5); WHITE BLOOD COUNT 4.9 K/uL (4.8-10.8)
[2017-05-24 12:17] LABS: ALBUMIN 3.9 g/dL (3.5-5.0); ALT/SGPT 13 U/L (9-52); AST/SGOT 24 U/L (14-36); BLOOD UREA NITROGEN 16 mg/dL (7-17); CALCIUM 9.6 mg/dl (8.6-10.4); GFR AFRICAN-AMERICAN > 60; GFR NON-AFRICAN AMERICAN > 60
[2017-05-24 12:58] LABS: LYMPHOCYTE 9 % (20-40); NEUTROPHIL 91 % (50-75); PLATELET ESTIMATE NORMAL (NORMAL); TOTAL CELLS COUNTED 100
--- NOTE | 2017-05-24 14:16 | CP.PCM.PN ---
Subjective - Date & Time of Evaluation Date of Evaluation: 05/24/17 Time of Evaluation: 11:35 - Subjective Subjective: Patient was seen and evaluated. She states that her breathing has improved but continues to feel short of breath on exertion. She was able to tolerate food this morning. She denies any fever, chills, nausea, vomiting. Assessment and Plan: Patient is a 57 y.o F with PMH of right-sided breast cancer s/p neoadjuvant chemotherapy, mastectomy and axillary LN dissection, radiation, on hormonal therapy who presented with RUE swelling and SOB most likely due to malignancy or PNA. SOB: -Chest CT on 05/22 showed multiple bilateral pulmonary nodules right greater than left consistent with metastatic disease: mediastinal and right hilar adenopathy also suspicious for metastatic disease; minimal patchy airspace disease in the right apex; mild cardiomegaly, no aortic aneurysm, dissection or pulmonary embolus -Continue IV abx -Nebulizer treatments -BiPAP as needed -Solu-medrol -Blood culture negative x2 -Heme/onc following for hx of breast cancer Objective - Vital Signs/Intake and Output Vital Signs (last 24 hours): Temp Pulse Resp BP Pulse Ox 97.9 F 59 L 21 108/69 100 05/24/17 07:40 05/24/17 07:40 05/24/17 07:40 05/24/17 07:40 05/24/17 07:40 - Medications Medications: Current Medications Albuterol/Ipratropium (Duoneb 3 Mg/0.5 Mg (3 Ml) Ud) 3 ml INH RQ6 [facility] Last Admin: 05/24/17 07:33 Dose: 3 ml Anastrozole (Arimidex 1 Mg Tab) 1 mg PO DAILY [facility] Last Admin: 05/24/17 09:34 Dose: 1 mg Enoxaparin Sodium (Lovenox) 40 mg SC DAILY [facility] Last Admin: 05/24/17 09:30 Dose: 40 mg Gabapentin (Neurontin) 400 mg PO TID [facility] Last Admin: 05/24/17 13:43 Dose: 400 mg Hydrochlorothiazide (Hydrodiuril) 25 mg PO DAILY [facility] Last Admin: 05/24/17 09:29 Dose: 25 mg Ceftriaxone Sodium 1 gm/ (Sodium Chloride) 100 mls @ 100 mls/hr IVPB DAILY [facility] Last Admin: 05/24/17 09:29 Dose: 100 mls/hr Azithromycin 500 mg/ Sodium (Chloride) 250 mls @ 250 mls/hr IVPB DAILY [facility] Last Admin: 05/24/17 10:55 Dose: 250 mls/hr Lisinopril (Zestril) 20 mg PO DAILY [facility] Last Admin: 05/24/17 09:29 Dose: 20 mg Methylprednisolone (Solu-Medrol) 40 mg IVP Q8 [facility] Last Admin: 05/24/17 13:42 Dose: 40 mg Pantoprazole Sodium (Protonix Inj) 40 mg IVP DAILY [facility] Last Admin: 05/24/17 09:30 Dose: 40 mg Potassium Chloride (Klor-Con 10) 10 meq PO BRK [facility] Last Admin: 05/24/17 08:47 Dose: 10 meq Tramadol HCl (Ultram) 50 mg PO Q6H PRN PRN Reason: Pain, severe (8-10) Last Admin: 05/23/17 14:12 Dose: 50 mg - Labs Labs: 05/24/17 11:48 05/24/17 11:48 PT 12.5 SECONDS (9.7-12.2) H 05/22/17 08:48 INR 1.1 05/22/17 08:48 APTT 31 SECONDS (21-34) 05/22/17 08:48
--- NOTE | 2017-05-24 14:41 | VASCLAB ---
PROCEDURE: Right Upper Extremity Venous Duplex Exam HISTORY: swelling and pain to RUE PRIORS: None. TECHNIQUE: Right upper extremity, internal jugular, subclavian, axillary, brachial, ulnar, radial, basilic and upper cephalic veins were evaluated. Flow was assessed with color Doppler, compressibility, assessment of phasic flow and augmentation response. Report prepared by special procedure technologist. FINDINGS: RIGHT: 1. Internal Jugular: 1.1. Compressibility - Fully compressible: Thrombus - None : Flow - Phasic: Augmentation -Normal: Reflux - None. 2. Subclavian: 2.1. Compressibility - Fully compressible: Thrombus - None : Flow - Phasic: Augmentation -Normal: Reflux - None. 3. Axillary: 3.1. Compressibility - Fully compressible: Thrombus - None : Flow - Phasic: Augmentation -Normal: Reflux - None. 4. Brachial: 4.1. Compressibility - Fully compressible: Thrombus - None: Flow - Phasic: Augmentation -Normal: Reflux - None. 5. Ulnar: 5.1. Compressibility - Fully compressible: Thrombus - None: Flow - Phasic: Augmentation -Normal: Reflux - None. 6. Radial: 6.1. Compressibility - Fully compressible: Thrombus - None: Flow - Phasic: Augmentation - Normal: Reflux - None. 7. Cephalic: 7.1. Compressibility - Fully compressible: Thrombus - None: Flow - Phasic: Augmentation -Normal: Reflux - None. 8. Basilic: 8.1. Compressibility - Fully compressible: Thrombus - None: Flow - Phasic: Augmentation -Normal: Reflux - None. OTHER FINDINGS: Right: There was a mass/complex structure with some vascular activity noted in the right infraclavicular shoulder area measuring approximately 3.6 X 4.6 cm There was a small homogeneous structure/possible lymph node noted in the left infraclavicular shoulder area measuring approximately 1.2 X 2.1 cm Team taking care of the patient was made aware of these findings after completion of the examination. IMPRESSION: Right: No evidence of vein thrombosis of the right upper extremity with excellent venous flow. Normal valve function noted of the right side. Normal venous flow noted in the left internal jugular and left subclavian veins.
[2017-05-24 16:43] VITALS: RESP 20
--- NOTE | 2017-05-24 17:31 | CP.PCM.PN ---
Subjective - Date & Time of Evaluation Date of Evaluation: 05/24/17 Time of Evaluation: 11:40 - Subjective Subjective: clinically same Objective - Vital Signs/Intake and Output Vital Signs (last 24 hours): Temp Pulse Resp BP Pulse Ox 97.8 F 79 20 100/67 98 05/24/17 16:42 05/24/17 16:42 05/24/17 16:42 05/24/17 16:42 05/24/17 16:42 - Medications Medications: Current Medications Albuterol/Ipratropium (Duoneb 3 Mg/0.5 Mg (3 Ml) Ud) 3 ml INH RQ6 [facility] Last Admin: 05/24/17 14:22 Dose: 3 ml Anastrozole (Arimidex 1 Mg Tab) 1 mg PO DAILY [facility] Last Admin: 05/24/17 09:34 Dose: 1 mg Enoxaparin Sodium (Lovenox) 40 mg SC DAILY [facility] Last Admin: 05/24/17 09:30 Dose: 40 mg Gabapentin (Neurontin) 400 mg PO TID [facility] Last Admin: 05/24/17 17:25 Dose: 400 mg Hydrochlorothiazide (Hydrodiuril) 25 mg PO DAILY [facility] Last Admin: 05/24/17 09:29 Dose: 25 mg Ceftriaxone Sodium 1 gm/ (Sodium Chloride) 100 mls @ 100 mls/hr IVPB DAILY [facility] Last Admin: 05/24/17 09:29 Dose: 100 mls/hr Azithromycin 500 mg/ Sodium (Chloride) 250 mls @ 250 mls/hr IVPB DAILY [facility] Last Admin: 05/24/17 10:55 Dose: 250 mls/hr Lisinopril (Zestril) 20 mg PO DAILY [facility] Last Admin: 05/24/17 09:29 Dose: 20 mg Methylprednisolone (Solu-Medrol) 40 mg IVP Q8 [facility] Last Admin: 05/24/17 13:42 Dose: 40 mg Pantoprazole Sodium (Protonix Inj) 40 mg IVP DAILY [facility] Last Admin: 05/24/17 09:30 Dose: 40 mg Potassium Chloride (Klor-Con 10) 10 meq PO BRK [facility] Last Admin: 05/24/17 08:47 Dose: 10 meq Tramadol HCl (Ultram) 50 mg PO Q6H PRN PRN Reason: Pain, severe (8-10) Last Admin: 05/23/17 14:12 Dose: 50 mg - Labs Labs: 05/24/17 11:48 05/24/17 11:48 PT 12.5 SECONDS (9.7-12.2) H 05/22/17 08:48 INR 1.1 05/22/17 08:48 APTT 31 SECONDS (21-34) 05/22/17 08:48 - Constitutional Appears: Well - Head Exam Head Exam: ATRAUMATIC, NORMAL INSPECTION, NORMOCEPHALIC - Eye Exam Eye Exam: EOMI, Normal appearance, PERRL Pupil Exam: NORMAL ACCOMODATION, PERRL - ENT Exam ENT Exam: Mucous Membranes Moist, Normal Exam - Neck Exam Neck Exam: Full ROM, Normal Inspection. absent: Lymphadenopathy - Respiratory Exam Respiratory Exam: Decreased Breath Sounds - Cardiovascular Exam Cardiovascular Exam: REGULAR RHYTHM, +S1, +S2 - GI/Abdominal Exam GI & Abdominal Exam: Soft, Diminished Bowel Sounds - Rectal Exam Rectal Exam: Deferred
--- NOTE | 2017-05-24 18:59 | CP.PCM.CON ---
History of Present Illness - History of Present Illness History of Present Illness: Vascular Surgery- Dr. Lorenz 57F morbidly obese pmhx significant for breast ca, bilateral mastectomy in 2014 , last chemo and XRT in 2015, HTN presented to [facility] ED for RUE pain and intermittent swelling over the last 1 month, and chest pain w/ shortness of breath getting worse over the last 2 weeks. Vascular surgery was consulted for the possibility of vascular compromise causing the swelling. Currently patient' s arm is not swollen, however has pain with shoulder abduction. Currently denies: Fevers, chills, chest pain, shortness of breath, nausea, vomiting, diarrhea, sudden changes in vision, loss of consciousness. PMH: HTN, Breast Ca PSH: bilateral mastectomy s/p chemo & XRT ALL: NKDA SocialHx: Denies tobacco, ETOH, recreational drug use Review of Systems - Review of Systems All systems: reviewed and no additional remarkable complaints except - Constitutional Constitutional: As Per HPI Past Patient History - Past Medical History & Family History Past Medical History?: Yes - Past Social History Smoking Status: Never Smoked - CARDIAC Hx Hypertension: Yes Hx Pacemaker: No - PULMONARY Hx Asthma: Yes (CHILDHOOD NO MEDS) Hx Pneumonia: Yes (Childhood) - NEUROLOGICAL Hx Neurological Disorder: No - HEENT Hx HEENT Problems: No Other/Comment: GLASSES - RENAL Hx Chronic Kidney Disease: No - ENDOCRINE/METABOLIC Hx Endocrine Disorders: No - HEMATOLOGICAL/ONCOLOGICAL Hx Cancer: Yes (breast) - INTEGUMENTARY Hx Dermatological Problems: No - MUSCULOSKELETAL/RHEUMATOLOGICAL Hx Falls: No Hx Fractures: Yes (TOE/ARM NO SURGERY) - GENITOURINARY/GYNECOLOGICAL Hx Genitourinary Disorders: Yes Other/Comment: right breast cancer - PSYCHIATRIC Hx Substance Use: No - SURGICAL HISTORY Hx Surgeries: Yes Hx Section: Yes (one) Other/Comment: breast removal s/p breast ca july 2014. - ANESTHESIA Hx Anesthesia: Yes Hx Anesthesia Reactions: No Hx Malignant Hyperthermia: No Meds Allergies/Adverse Reactions: Allergies Allergy/AdvReac Type Severity Reaction Status Date / Time No Known Allergies Allergy Verified 05/22/17 08:01 - Medications Medications: Current Medications Albuterol/Ipratropium (Duoneb 3 Mg/0.5 Mg (3 Ml) Ud) 3 ml INH RQ6 [facility] Last Admin: 05/24/17 14:22 Dose: 3 ml Anastrozole (Arimidex 1 Mg Tab) 1 mg PO DAILY [facility] Last Admin: 05/24/17 09:34 Dose: 1 mg Enoxaparin Sodium (Lovenox) 40 mg SC DAILY [facility] Last Admin: 05/24/17 09:30 Dose: 40 mg Gabapentin (Neurontin) 400 mg PO TID [facility] Last Admin: 05/24/17 17:25 Dose: 400 mg Hydrochlorothiazide (Hydrodiuril) 25 mg PO DAILY [facility] Last Admin: 05/24/17 09:29 Dose: 25 mg Ceftriaxone Sodium 1 gm/ (Sodium Chloride) 100 mls @ 100 mls/hr IVPB DAILY [facility] Last Admin: 05/24/17 09:29 Dose: 100 mls/hr Azithromycin 500 mg/ Sodium (Chloride) 250 mls @ 250 mls/hr IVPB DAILY [facility] Last Admin: 05/24/17 10:55 Dose: 250 mls/hr Lisinopril (Zestril) 20 mg PO DAILY [facility] Last Admin: 05/24/17 09:29 Dose: 20 mg Methylprednisolone (Solu-Medrol) 40 mg IVP Q8 [facility] Last Admin: 05/24/17 13:42 Dose: 40 mg Pantoprazole Sodium (Protonix Inj) 40 mg IVP DAILY [facility] Last Admin: 05/24/17 09:30 Dose: 40 mg Potassium Chloride (Klor-Con 10) 10 meq PO BRK [facility] Last Admin: 05/24/17 08:47 Dose: 10 meq Tramadol HCl (Ultram) 50 mg PO Q6H PRN PRN Reason: Pain, severe (8-10) Last Admin: 05/23/17 14:12 Dose: 50 mg Physical Exam - Constitutional Appears: Non-toxic, No Acute Distress - Head Exam Head Exam: ATRAUMATIC - Eye Exam Eye Exam: EOMI. absent: Scleral icterus - Respiratory Exam Respiratory Exam: NORMAL BREATHING PATTERN. absent: Accessory Muscle Use, Respiratory Distress - Cardiovascular Exam Cardiovascular Exam: +S1, +S2. absent: Bradycardia, Tachycardia - GI/Abdominal Exam GI & Abdominal Exam: Soft. absent: Distended, Firm, Guarding, Tenderness - Extremities Exam Additional comments: + 2radial pulses bilateral no edema or swelling in b/L upper extremities +2 PT and DP pulses b/L - Neurological Exam Neurological exam: Alert, Oriented x3 - Skin Skin Exam: Intact, Warm Results - Vital Signs Recent Vital Signs: Last Vital Signs Temp 97.8 F 05/24/17 16:42 Pulse 79 05/24/17 16:42 Resp 20 05/24/17 16:42 BP 100/67 05/24/17 16:42 Pulse Ox 98 05/24/17 16:42 - Labs Result Diagrams: 05/24/17 11:48 05/24/17 11:48 Labs: Laboratory Results - last 24 hr 05/24/17 05/24/17 11:48 11:48 WBC 4.9 RBC 4.67 Hgb 11.5 Hct 34.9 MCV 74.7 L MCH 24.5 L MCHC 32.8 L RDW 14.7 H Plt Count 350 MPV 7.9 Neut % (Auto) 91.8 H Lymph % (Auto) 7.5 L Victoria % (Auto) 0.6 Eos % (Auto) 0.0 Baso % (Auto) 0.1 Neut # (Auto) 4.5 Lymph # (Auto) 0.4 L Victoria # (Auto) 0.0 Eos # (Auto) 0.0 Baso # (Auto) 0.0 Neutrophils % (Manual) 91 H Lymphocytes % (Manual) 9 L Monocytes % (Manual) TEST NOT PERFORMED Platelet Estimate Normal RBC Morphology Normal Sodium 136 Potassium 3.6 Chloride 97 L Carbon Dioxide 25 Anion Gap 18 BUN 16 Creatinine 0.8 Est GFR ( Amer) > 60 Est GFR (Non-Af Amer) > 60 Random Glucose 229 H Calcium 9.6 Total Bilirubin 0.6 AST 24 ALT 13 Alkaline Phosphatase 103 Total Protein 7.9 Albumin 3.9 Globulin 4.0 H Albumin/Globulin Ratio 1.0 Assessment & Plan - Assessment and Plan (Free Text) Assessment: 57F w/ intermittent RUE swelling and pain for 1 month Duplex showed no UE DVT CT: shows possible malginancy in R. Lung Plan: - recommend Physical therapy and compression - f/u w/ Dr. Gibson Heme/Onc - no signs of acute vascular compromise - no surgical intervention indicated at this time - further recs per Dr. Kelechi Blackwood PGY1
--- NOTE | 2017-05-24 22:47 | CARD ---
APPROVED REPORT EKG Measurement Heart [id number] [id number] <Conclusion> Normal sinus rhythm Normal ECG
--- NOTE | 2017-05-24 23:31 | CP.PCM.PN ---
Subjective - Date & Time of Evaluation Date of Evaluation: 05/24/17 Time of Evaluation: 20:25 - Subjective Subjective: Still has right shoulder/scapula pain Objective - Vital Signs/Intake and Output Vital Signs (last 24 hours): Temp Pulse Resp BP Pulse Ox 97.8 F 98 H 20 100/67 98 05/24/17 16:42 05/24/17 22:00 05/24/17 16:42 05/24/17 16:42 05/24/17 16:42 Intake and Output: 05/24/17 05/25/17 18:59 06:59 Intake Total 700 Balance 700 - Medications Medications: Current Medications Albuterol/Ipratropium (Duoneb 3 Mg/0.5 Mg (3 Ml) Ud) 3 ml INH RQ6 [facility] Last Admin: 05/24/17 20:10 Dose: 3 ml Anastrozole (Arimidex 1 Mg Tab) 1 mg PO DAILY [facility] Last Admin: 05/24/17 09:34 Dose: 1 mg Enoxaparin Sodium (Lovenox) 40 mg SC DAILY [facility] Last Admin: 05/24/17 09:30 Dose: 40 mg Gabapentin (Neurontin) 400 mg PO TID [facility] Last Admin: 05/24/17 17:25 Dose: 400 mg Hydrochlorothiazide (Hydrodiuril) 25 mg PO DAILY [facility] Last Admin: 05/24/17 09:29 Dose: 25 mg Ceftriaxone Sodium 1 gm/ (Sodium Chloride) 100 mls @ 100 mls/hr IVPB DAILY [facility] Last Admin: 05/24/17 09:29 Dose: 100 mls/hr Azithromycin 500 mg/ Sodium (Chloride) 250 mls @ 250 mls/hr IVPB DAILY [facility] Last Admin: 05/24/17 10:55 Dose: 250 mls/hr Lisinopril (Zestril) 20 mg PO DAILY [facility] Last Admin: 05/24/17 09:29 Dose: 20 mg Methylprednisolone (Solu-Medrol) 40 mg IVP Q8 [facility] Last Admin: 05/24/17 21:08 Dose: 40 mg Pantoprazole Sodium (Protonix Inj) 40 mg IVP DAILY [facility] Last Admin: 05/24/17 09:30 Dose: 40 mg Potassium Chloride (Klor-Con 10) 10 meq PO BRK [facility] Last Admin: 05/24/17 08:47 Dose: 10 meq Tramadol HCl (Ultram) 50 mg PO Q6H PRN PRN Reason: Pain, severe (8-10) Last Admin: 05/23/17 14:12 Dose: 50 mg - Labs Labs: 05/24/17 11:48 05/24/17 11:48 PT 12.5 SECONDS (9.7-12.2) H 05/22/17 08:48 INR 1.1 05/22/17 08:48 APTT 31 SECONDS (21-34) 05/22/17 08:48 - Head Exam Head Exam: ATRAUMATIC - Eye Exam Eye Exam: Normal appearance - ENT Exam ENT Exam: Mucous Membranes Dry - Respiratory Exam Respiratory Exam: NORMAL BREATHING PATTERN - Cardiovascular Exam Cardiovascular Exam: +S1, +S2 - GI/Abdominal Exam GI & Abdominal Exam: Normal Bowel Sounds Assessment and Plan (1) Swelling of right upper extremity Assessment & Plan: negative for DVT ? referred pain from lung lesions Status: Acute (2) Breast cancer Assessment & Plan: imaging suggestive of metastatic disease to the lung and bone recommend IR evaluation ? ammenable to percutanous biopsy Status: Acute
[2017-05-25] MEDS: Albuterol-Ipratrop 3 mg / 0.5 (3 ml) UD INH SCH ×4 (01:11→20:21)
[2017-05-25] MEDS: MethylPREDNISolone 40 mg Vial IVP SCH ×3 (06:16→21:10)
[2017-05-25] MEDS: Potassium Chloride 10 mEq ER Tab PO SCH (08:00)
[2017-05-25 08:06] LABS: HEMOGLOBIN 11.1 g/dL (11.0-16.0); LYMPH # 0.8 K/uL (1.0-4.3); LYMPH % 9.2 % (20.0-40.0); MEAN CELL VOLUME 74.4 fL (81.0-99.0); MEAN CORPUSCULAR HEMOGLOBIN 23.6 pg (27.0-31.0); MEAN CORPUSCULAR HGB CONC 31.7 g/dL (33.0-37.0); MEAN PLATELET VOLUME 7.7 fL (7.2-11.7); MONO # 0.4 K/uL (0.0-0.8); MONO % 4.3 % (0.0-10.0); NEUT # 7.2 K/uL (1.8-7.0); NEUT % 86.5 % (50.0-75.0); PLATELET COUNT 377 K/uL (130-400); RBC 4.72 Mil/uL (3.80-5.20); RED CELL DISTRIBUTION WIDTH 14.7 % (11.5-14.5)
[2017-05-25 08:16] LABS: WHITE BLOOD COUNT 8.4 K/uL (4.8-10.8)
[2017-05-25 08:21] LABS: ALB/GLOB RATIO 0.9 (1.0-2.1); ALBUMIN 3.9 g/dL (3.5-5.0); ALT/SGPT 18 U/L (9-52); AST/SGOT 26 U/L (14-36); BLOOD UREA NITROGEN 22 mg/dL (7-17); CALCIUM 9.7 mg/dl (8.6-10.4); GFR AFRICAN-AMERICAN > 60; GFR NON-AFRICAN AMERICAN > 60
--- NOTE | 2017-05-25 09:23 | CP.PCM.PN ---
Subjective - Date & Time of Evaluation Date of Evaluation: 05/25/17 Time of Evaluation: 06:55 - Subjective Subjective: Vascular Surgery Pt S&E, pt with some arm pain this AM. Swelling is down. no new complaints. Objective - Vital Signs/Intake and Output Vital Signs (last 24 hours): Temp Pulse Resp BP Pulse Ox 97.9 F 76 20 115/72 100 05/25/17 07:24 05/25/17 07:30 05/25/17 07:24 05/25/17 07:24 05/25/17 07:24 Intake and Output: 05/25/17 05/25/17 06:59 18:59 Intake Total 700 Balance 700 - Medications Medications: Current Medications Albuterol/Ipratropium (Duoneb 3 Mg/0.5 Mg (3 Ml) Ud) 3 ml INH RQ6 [facility] Last Admin: 05/25/17 07:35 Dose: 3 ml Anastrozole (Arimidex 1 Mg Tab) 1 mg PO DAILY [facility] Last Admin: 05/24/17 09:34 Dose: 1 mg Enoxaparin Sodium (Lovenox) 40 mg SC DAILY [facility] Last Admin: 05/24/17 09:30 Dose: 40 mg Gabapentin (Neurontin) 400 mg PO TID [facility] Last Admin: 05/24/17 17:25 Dose: 400 mg Hydrochlorothiazide (Hydrodiuril) 25 mg PO DAILY [facility] Last Admin: 05/24/17 09:29 Dose: 25 mg Ceftriaxone Sodium 1 gm/ (Sodium Chloride) 100 mls @ 100 mls/hr IVPB DAILY [facility] Last Admin: 05/24/17 09:29 Dose: 100 mls/hr Azithromycin 500 mg/ Sodium (Chloride) 250 mls @ 250 mls/hr IVPB DAILY [facility] Last Admin: 05/24/17 10:55 Dose: 250 mls/hr Lisinopril (Zestril) 20 mg PO DAILY [facility] Last Admin: 05/24/17 09:29 Dose: 20 mg Methylprednisolone (Solu-Medrol) 40 mg IVP Q8 [facility] Last Admin: 05/25/17 06:16 Dose: 40 mg Pantoprazole Sodium (Protonix Inj) 40 mg IVP DAILY [facility] Last Admin: 05/24/17 09:30 Dose: 40 mg Potassium Chloride (Klor-Con 10) 10 meq PO BRK [facility] Last Admin: 05/24/17 08:47 Dose: 10 meq Tramadol HCl (Ultram) 50 mg PO Q6H PRN PRN Reason: Pain, severe (8-10) Last Admin: 05/23/17 14:12 Dose: 50 mg - Labs Labs: 05/25/17 08:00 05/25/17 08:00 PT 12.5 SECONDS (9.7-12.2) H 05/22/17 08:48 INR 1.1 05/22/17 08:48 APTT 31 SECONDS (21-34) 05/22/17 08:48 - Constitutional Appears: Non-toxic, No Acute Distress - Head Exam Head Exam: ATRAUMATIC, NORMOCEPHALIC - Eye Exam Eye Exam: EOMI. absent: Scleral icterus - Respiratory Exam Respiratory Exam: NORMAL BREATHING PATTERN. absent: Respiratory Distress Additional comments: on bipap this AM - GI/Abdominal Exam GI & Abdominal Exam: Soft. absent: Distended, Tenderness - Neurological Exam Neurological Exam: Alert, Awake - Skin Skin Exam: Dry, Warm - Additional Findings Additional findings: R axilla without palpable nodes, but there is palpable scar tissue Assessment and Plan - Assessment and Plan (Free Text) Assessment: 62F with intermittent RUE swelling and pain Plan: Duplex showed no UE DVT CT: shows possible malginancy/metastasis Physical therapy and upper extremity compression sleeve for swelling. Elevate arm at night. No surgical intervention at this time D/W Dr. Kelechi Moser PGY4
[2017-05-25 10:04] LABS: LYMPHOCYTE 7 % (20-40); MONOCYTE 4 % (0-10); NEUTROPHIL 89 % (50-75); PLATELET ESTIMATE NORMAL (NORMAL); TOTAL CELLS COUNTED 100
[2017-05-25] MEDS: Enoxaparin 40 mg Syringe SC SCH (10:20)
--- NOTE | 2017-05-25 10:44 | CP.PCM.PN ---
<Wily Coats - Last Filed: 05/25/17 12:37> Subjective - Date & Time of Evaluation Date of Evaluation: 05/25/17 Time of Evaluation: 10:45 - Subjective Subjective: Progress note. Attending: DR HITESH MITCHELL. Pt seen and examined at bedside. No acute distress. No events overnight. No fevers, chills, vomiting, diarrhea. Pt is complaining of some left upper ext swelling. Objective - Vital Signs/Intake and Output Vital Signs (last 24 hours): Temp Pulse Resp BP Pulse Ox 97.9 F 76 20 115/72 100 05/25/17 07:24 05/25/17 07:30 05/25/17 07:24 05/25/17 07:24 05/25/17 07:24 Intake and Output: 05/25/17 05/25/17 06:59 18:59 Intake Total 700 Balance 700 - Medications Medications: Current Medications Albuterol/Ipratropium (Duoneb 3 Mg/0.5 Mg (3 Ml) Ud) 3 ml INH RQ6 [facility] Last Admin: 05/25/17 07:35 Dose: 3 ml Anastrozole (Arimidex 1 Mg Tab) 1 mg PO DAILY [facility] Last Admin: 05/24/17 09:34 Dose: 1 mg Enoxaparin Sodium (Lovenox) 40 mg SC DAILY [facility] Last Admin: 05/25/17 10:20 Dose: 40 mg Gabapentin (Neurontin) 400 mg PO TID [facility] Last Admin: 05/25/17 10:35 Dose: 400 mg Hydrochlorothiazide (Hydrodiuril) 25 mg PO DAILY [facility] Last Admin: 05/25/17 10:34 Dose: 25 mg Ceftriaxone Sodium 1 gm/ (Sodium Chloride) 100 mls @ 100 mls/hr IVPB DAILY [facility] Last Admin: 05/25/17 10:19 Dose: 100 mls/hr Azithromycin 500 mg/ Sodium (Chloride) 250 mls @ 250 mls/hr IVPB DAILY [facility] Last Admin: 05/24/17 10:55 Dose: 250 mls/hr Lisinopril (Zestril) 20 mg PO DAILY [facility] Last Admin: 05/25/17 10:34 Dose: 20 mg Methylprednisolone (Solu-Medrol) 40 mg IVP Q8 [facility] Last Admin: 05/25/17 06:16 Dose: 40 mg Pantoprazole Sodium (Protonix Inj) 40 mg IVP DAILY [facility] Last Admin: 05/25/17 10:20 Dose: 40 mg Potassium Chloride (Klor-Con 10) 10 meq PO BRK [facility] Last Admin: 05/25/17 08:00 Dose: 10 meq Tramadol HCl (Ultram) 50 mg PO Q6H PRN PRN Reason: Pain, severe (8-10) Last Admin: 05/23/17 14:12 Dose: 50 mg - Labs Labs: 05/25/17 08:00 05/25/17 08:00 PT 12.5 SECONDS (9.7-12.2) H 05/22/17 08:48 INR 1.1 05/22/17 08:48 APTT 31 SECONDS (21-34) 05/22/17 08:48 - Constitutional Appears: Chronically Ill - Head Exam Head Exam: ATRAUMATIC, NORMAL INSPECTION, NORMOCEPHALIC - Eye Exam Eye Exam: EOMI - ENT Exam ENT Exam: Mucous Membranes Moist - Neck Exam Neck Exam: Full ROM, Normal Inspection - Respiratory Exam Respiratory Exam: NORMAL BREATHING PATTERN. absent: Respiratory Distress - Cardiovascular Exam Cardiovascular Exam: +S1, +S2 - GI/Abdominal Exam GI & Abdominal Exam: Soft, Normal Bowel Sounds. absent: Tenderness - Extremities Exam Extremities Exam: absent: Full ROM, Normal Inspection Additional comments: some swelling to left and right upper extremities - Back Exam Back Exam: NORMAL INSPECTION - Neurological Exam Neurological Exam: Alert, Awake, CN II-XII Intact, Oriented x3 - Psychiatric Exam Psychiatric exam: Normal Affect, Normal Mood - Skin Skin Exam: Dry, Intact, Normal Color, Warm Assessment and Plan - Assessment and Plan (Free Text) Assessment: This is a 57 yo female with 1. Metastatic breast cancer- stage III -heme onc. consult. recs appreciated. DR HERNANDES. -anastrazole 1 mg po daily -tramadol PRN for pain 2. R upper ext swelling -vascular sx consult. DR. HANCOCK. recs appreciated. -us showed no DVT -pt also complaining of some left upper ext swelling today -will order duplex of left today -continue compression sleeve on right -elevate arm at night -no surgical intervention at this time. 3. Shortness of breath/ community acquired pneumonia -Pulm consult. recs appreciated. -duonebs -continue IV azithromycin daily -continue IV rocephin daily -ID consult. DR HERRERA. recs appreciated. -blood cultures x 2 negative after 3 days. -continue solumedrol 40 IV q 8 hrs. -BNP within normal limits -Bipap as needed. -urine strep pneumo -urine legionella pending 4. Pulmonary nodule -CXR notes pulmonary nodule 1.5 cm -continue to monitor -pulm consult as above 5. hx of HTN -continue lisinopril daily -continue HCTZ daily 6. hx of hypokalemia -continue supplementation with potassium chloride daily -K within normal limits today. 5. GI/DVT ppx -continue lovenox daily -continue protonix discussed with DR MITCHELL. <Amina Mitchell S - Last Filed: 05/25/17 20:06> Objective - Vital Signs/Intake and Output Vital Signs (last 24 hours): Temp Pulse Resp BP Pulse Ox 98.0 F 84 20 101/63 95 05/25/17 15:00 05/25/17 15:00 05/25/17 15:00 05/25/17 15:00 05/25/17 15:00 - Medications Medications: Current Medications Albuterol/Ipratropium (Duoneb 3 Mg/0.5 Mg (3 Ml) Ud) 3 ml INH RQ6 [facility] Last Admin: 05/25/17 13:29 Dose: 3 ml Anastrozole (Arimidex 1 Mg Tab) 1 mg PO DAILY [facility] Last Admin: 05/25/17 10:00 Dose: 1 mg Docusate Sodium (Colace) 100 mg PO TID [facility] Last Admin: 05/25/17 17:11 Dose: 100 mg Enoxaparin Sodium (Lovenox) 40 mg SC DAILY [facility] Last Admin: 05/25/17 10:20 Dose: 40 mg Gabapentin (Neurontin) 400 mg PO TID [facility] Last Admin: 05/25/17 17:11 Dose: 400 mg Hydrochlorothiazide (Hydrodiuril) 25 mg PO DAILY [facility] Last Admin: 05/25/17 10:34 Dose: 25 mg Ceftriaxone Sodium 1 gm/ (Sodium Chloride) 100 mls @ 100 mls/hr IVPB DAILY [facility] Last Admin: 05/25/17 10:19 Dose: 100 mls/hr Azithromycin 500 mg/ Sodium (Chloride) 250 mls @ 250 mls/hr IVPB DAILY [facility] Last Admin: 05/25/17 12:17 Dose: 250 mls/hr Lisinopril (Zestril) 20 mg PO DAILY [facility] Last Admin: 05/25/17 10:34 Dose: 20 mg Methylprednisolone (Solu-Medrol) 40 mg IVP Q8 [facility] Last Admin: 05/25/17 13:20 Dose: 40 mg Pantoprazole Sodium (Protonix Inj) 40 mg IVP DAILY [facility] Last Admin: 05/25/17 10:20 Dose: 40 mg Potassium Chloride (Klor-Con 10) 10 meq PO BRK [facility] Last Admin: 05/25/17 08:00 Dose: 10 meq Tramadol HCl (Ultram) 50 mg PO Q6H PRN PRN Reason: Pain, severe (8-10) Last Admin: 05/23/17 14:12 Dose: 50 mg - Labs Labs: 05/25/17 08:00 05/25/17 08:00 PT 12.5 SECONDS (9.7-12.2) H 05/22/17 08:48 INR 1.1 05/22/17 08:48 APTT 31 SECONDS (21-34) 05/22/17 08:48 Attending/Attestation - Attestation I have personally seen and examined this patient.: Yes I have fully participated in the care of the patient.: Yes I have reviewed all pertinent clinical information, including history, physical exam and plan: Yes Notes (Text): 05/25/17 20:06 case seen and d.w staff s/p dr. hancock swelling > vascular pulm nodule
[2017-05-25] MEDS: Azithromycin 500 MG in Sodium Chloride 0.9% 250 ML IVPB SCH (12:17)
--- NOTE | 2017-05-25 15:29 | CP.PCM.PN ---
Subjective - Date & Time of Evaluation Date of Evaluation: 05/25/17 Time of Evaluation: 09:20 - Subjective Subjective: Patient was seen and evaluated. Patient continues to complain of shortness of breath on exertion. She continues to complain of productive cough that causes mild chest discomfort. She also complains of bilateral shoulder pain, right worse than left. Patient seen by vascular surgery- no surgical intervention at this time. Assessment and Plan: Patient is a 57 y.o F with PMH of right-sided breast cancer s/p neoadjuvant chemotherapy, mastectomy and axillary LN dissection, radiation, on hormonal therapy who presented with RUE swelling and SOB most likely due to malignancy or PNA. -Chest CT on 05/22 showed multiple bilateral pulmonary nodules right greater than left consistent with metastatic disease: mediastinal and right hilar adenopathy also suspicious for metastatic disease; minimal patchy airspace disease in the right apex; mild cardiomegaly, no aortic aneurysm, dissection or pulmonary embolus -Abd/pelvis CT on 05/22 showed right lower lobe pulmonary nodule suspicious for metastatic disease; sclerotic lesions in L3 and in the sacrum metastatic disease cannot be excluded -Duplex negative for UE DVT -Continue IV abx -Nebulizer treatments -BiPAP as needed -Solu-medrol -Blood culture negative x2 -Heme/onc following for hx of breast cancer -Possible IR eval for percutaneous biopsy- mets to lung and bone? Objective - Vital Signs/Intake and Output Vital Signs (last 24 hours): Temp Pulse Resp BP Pulse Ox 97.9 F 76 20 115/72 100 05/25/17 07:24 05/25/17 07:30 05/25/17 07:24 05/25/17 07:24 05/25/17 07:24 Intake and Output: 05/25/17 05/25/17 06:59 18:59 Intake Total 700 Balance 700 - Medications Medications: Current Medications Albuterol/Ipratropium (Duoneb 3 Mg/0.5 Mg (3 Ml) Ud) 3 ml INH RQ6 [facility] Last Admin: 05/25/17 13:29 Dose: 3 ml Anastrozole (Arimidex 1 Mg Tab) 1 mg PO DAILY [facility] Last Admin: 05/25/17 10:00 Dose: 1 mg Enoxaparin Sodium (Lovenox) 40 mg SC DAILY [facility] Last Admin: 05/25/17 10:20 Dose: 40 mg Gabapentin (Neurontin) 400 mg PO TID [facility] Last Admin: 05/25/17 13:19 Dose: 400 mg Hydrochlorothiazide (Hydrodiuril) 25 mg PO DAILY [facility] Last Admin: 05/25/17 10:34 Dose: 25 mg Ceftriaxone Sodium 1 gm/ (Sodium Chloride) 100 mls @ 100 mls/hr IVPB DAILY [facility] Last Admin: 05/25/17 10:19 Dose: 100 mls/hr Azithromycin 500 mg/ Sodium (Chloride) 250 mls @ 250 mls/hr IVPB DAILY [facility] Last Admin: 05/25/17 12:17 Dose: 250 mls/hr Lisinopril (Zestril) 20 mg PO DAILY [facility] Last Admin: 05/25/17 10:34 Dose: 20 mg Methylprednisolone (Solu-Medrol) 40 mg IVP Q8 [facility] Last Admin: 05/25/17 13:20 Dose: 40 mg Pantoprazole Sodium (Protonix Inj) 40 mg IVP DAILY [facility] Last Admin: 05/25/17 10:20 Dose: 40 mg Potassium Chloride (Klor-Con 10) 10 meq PO BRK [facility] Last Admin: 05/25/17 08:00 Dose: 10 meq Tramadol HCl (Ultram) 50 mg PO Q6H PRN PRN Reason: Pain, severe (8-10) Last Admin: 05/23/17 14:12 Dose: 50 mg - Labs Labs: 05/25/17 08:00 05/25/17 08:00 PT 12.5 SECONDS (9.7-12.2) H 05/22/17 08:48 INR 1.1 05/22/17 08:48 APTT 31 SECONDS (21-34) 05/22/17 08:48
--- NOTE | 2017-05-25 16:31 | VASCLAB ---
PROCEDURE: Left Upper Extremity Venous Duplex Exam HISTORY: Swelling PRIORS: None. TECHNIQUE: Left upper extremity, internal jugular, subclavian, axillary, brachial, ulnar, radial, basilic and upper cephalic veins were evaluated. Flow was assessed with color Doppler, compressibility, assessment of phasic flow and augmentation response. Report prepared by BECCA Vázquez FINDINGS: LEFT: 1. Internal Jugular: 1.1. Compressibility - Fully compressible: Thrombus - None : Flow - Phasic: Augmentation -Normal: Reflux - None. 2. Subclavian: 2.1. Compressibility - Fully compressible: Thrombus - None : Flow - Phasic: Augmentation -Normal: Reflux - None. 3. Axillary: 3.1. Compressibility - Fully compressible: Thrombus - None : Flow - Phasic: Augmentation -Normal: Reflux - None. 4. Brachial: 4.1. Compressibility - Fully compressible: Thrombus - None: Flow - Phasic: Augmentation -Normal: Reflux - None. 5. Ulnar: 5.1. Compressibility - Fully compressible: Thrombus - None: Flow - Phasic: Augmentation -Normal: Reflux - None. 6. Radial: 6.1. Compressibility - Fully compressible: Thrombus - None: Flow - Phasic: Augmentation - Normal: Reflux - None. 7. Cephalic: 7.1. Compressibility - Fully compressible: Thrombus - None: Flow - Phasic: Augmentation -Normal: Reflux - None. 8. Basilic: 8.1. Compressibility - Fully compressible: Thrombus - None: Flow - Phasic: Augmentation -Normal: Reflux - None. OTHER FINDINGS: Right: Hypoechoic mass noted at right shoulder area with vascularity as stated in the last study of 05/25/2017. Left: Small hypoechoic mass head left shoulder area with mild vascular as described in last study of 05/25/2017. IMPRESSION: Left: No evidence of vein thrombosis of the left upper extremity with excellent venous flow. Normal valve function noted of the left side. Normal venous flow noted in the right internal jugular and right subclavian veins.
--- NOTE | 2017-05-25 16:35 | CP.PCM.PN ---
Subjective - Date & Time of Evaluation Date of Evaluation: 05/25/17 Time of Evaluation: 10:40 - Subjective Subjective: clinically same Objective - Vital Signs/Intake and Output Vital Signs (last 24 hours): Temp Pulse Resp BP Pulse Ox 98.0 F 84 20 101/63 95 05/25/17 15:00 05/25/17 15:00 05/25/17 15:00 05/25/17 15:00 05/25/17 15:00 Intake and Output: 05/25/17 05/25/17 06:59 18:59 Intake Total 700 Balance 700 - Medications Medications: Current Medications Albuterol/Ipratropium (Duoneb 3 Mg/0.5 Mg (3 Ml) Ud) 3 ml INH RQ6 [facility] Last Admin: 05/25/17 13:29 Dose: 3 ml Anastrozole (Arimidex 1 Mg Tab) 1 mg PO DAILY [facility] Last Admin: 05/25/17 10:00 Dose: 1 mg Enoxaparin Sodium (Lovenox) 40 mg SC DAILY [facility] Last Admin: 05/25/17 10:20 Dose: 40 mg Gabapentin (Neurontin) 400 mg PO TID [facility] Last Admin: 05/25/17 13:19 Dose: 400 mg Hydrochlorothiazide (Hydrodiuril) 25 mg PO DAILY [facility] Last Admin: 05/25/17 10:34 Dose: 25 mg Ceftriaxone Sodium 1 gm/ (Sodium Chloride) 100 mls @ 100 mls/hr IVPB DAILY [facility] Last Admin: 05/25/17 10:19 Dose: 100 mls/hr Azithromycin 500 mg/ Sodium (Chloride) 250 mls @ 250 mls/hr IVPB DAILY [facility] Last Admin: 05/25/17 12:17 Dose: 250 mls/hr Lisinopril (Zestril) 20 mg PO DAILY [facility] Last Admin: 05/25/17 10:34 Dose: 20 mg Methylprednisolone (Solu-Medrol) 40 mg IVP Q8 [facility] Last Admin: 05/25/17 13:20 Dose: 40 mg Pantoprazole Sodium (Protonix Inj) 40 mg IVP DAILY [facility] Last Admin: 05/25/17 10:20 Dose: 40 mg Potassium Chloride (Klor-Con 10) 10 meq PO BRK [facility] Last Admin: 05/25/17 08:00 Dose: 10 meq Tramadol HCl (Ultram) 50 mg PO Q6H PRN PRN Reason: Pain, severe (8-10) Last Admin: 05/23/17 14:12 Dose: 50 mg - Labs Labs: 05/25/17 08:00 05/25/17 08:00 PT 12.5 SECONDS (9.7-12.2) H 05/22/17 08:48 INR 1.1 05/22/17 08:48 APTT 31 SECONDS (21-34) 05/22/17 08:48 - Constitutional Appears: Well - Head Exam Head Exam: ATRAUMATIC, NORMAL INSPECTION, NORMOCEPHALIC - Eye Exam Eye Exam: EOMI, Normal appearance, PERRL Pupil Exam: NORMAL ACCOMODATION, PERRL - ENT Exam ENT Exam: Mucous Membranes Moist, Normal Exam - Neck Exam Neck Exam: Full ROM, Normal Inspection. absent: Lymphadenopathy - Respiratory Exam Respiratory Exam: Decreased Breath Sounds - Cardiovascular Exam Cardiovascular Exam: REGULAR RHYTHM, +S1, +S2 - GI/Abdominal Exam GI & Abdominal Exam: Soft, Diminished Bowel Sounds - Rectal Exam Rectal Exam: Deferred Assessment and Plan - Assessment and Plan (Free Text) Plan: 1. Metastatic breast cancer- stage III -heme onc. consult. recs appreciated. DR HERNANDES. -anastrazole 1 mg po daily -tramadol PRN for pain 2. R upper ext swelling -vascular sx consult. DR. HANCOCK. recs appreciated. -us showed no DVT -pt also complaining of some left upper ext swelling today -will order duplex of left today -continue compression sleeve on right -elevate arm at night -no surgical intervention at this time. 3. Shortness of breath/ community acquired pneumonia -Pulm consult. recs appreciated. -duonebs -continue IV azithromycin daily -continue IV rocephin daily -ID consult. DR HERRERA. recs appreciated. -blood cultures x 2 negative after 3 days. -continue solumedrol 40 IV q 8 hrs. -BNP within normal limits -Bipap as needed. -urine strep pneumo -urine legionella pending 4. Pulmonary nodule -CXR notes pulmonary nodule 1.5 cm -continue to monitor -pulm consult as above 5. hx of HTN -continue lisinopril daily -continue HCTZ daily 6. hx of hypokalemia -continue supplementation with potassium chloride daily -K within normal limits today. 5. GI/DVT ppx
--- NOTE | 2017-05-25 22:49 | CP.PCM.PN ---
Subjective - Date & Time of Evaluation Date of Evaluation: 05/25/17 Time of Evaluation: 18:45 - Subjective Subjective: Cont. to have right axillary/shoulder pain Objective - Vital Signs/Intake and Output Vital Signs (last 24 hours): Temp Pulse Resp BP Pulse Ox 98.0 F 84 20 101/63 95 05/25/17 15:00 05/25/17 15:00 05/25/17 15:00 05/25/17 15:00 05/25/17 15:00 Intake and Output: 05/25/17 05/26/17 18:59 06:59 Intake Total 800 Balance 800 - Medications Medications: Current Medications Albuterol/Ipratropium (Duoneb 3 Mg/0.5 Mg (3 Ml) Ud) 3 ml INH RQ6 [facility] Last Admin: 05/25/17 20:21 Dose: 3 ml Anastrozole (Arimidex 1 Mg Tab) 1 mg PO DAILY [facility] Last Admin: 05/25/17 10:00 Dose: 1 mg Docusate Sodium (Colace) 100 mg PO TID [facility] Last Admin: 05/25/17 17:11 Dose: 100 mg Enoxaparin Sodium (Lovenox) 40 mg SC DAILY [facility] Last Admin: 05/25/17 10:20 Dose: 40 mg Gabapentin (Neurontin) 400 mg PO TID [facility] Last Admin: 05/25/17 17:11 Dose: 400 mg Hydrochlorothiazide (Hydrodiuril) 25 mg PO DAILY [facility] Last Admin: 05/25/17 10:34 Dose: 25 mg Ceftriaxone Sodium 1 gm/ (Sodium Chloride) 100 mls @ 100 mls/hr IVPB DAILY [facility] Last Admin: 05/25/17 10:19 Dose: 100 mls/hr Azithromycin 500 mg/ Sodium (Chloride) 250 mls @ 250 mls/hr IVPB DAILY [facility] Last Admin: 05/25/17 12:17 Dose: 250 mls/hr Lisinopril (Zestril) 20 mg PO DAILY [facility] Last Admin: 05/25/17 10:34 Dose: 20 mg Methylprednisolone (Solu-Medrol) 40 mg IVP Q8 [facility] Last Admin: 05/25/17 21:10 Dose: 40 mg Pantoprazole Sodium (Protonix Inj) 40 mg IVP DAILY [facility] Last Admin: 05/25/17 10:20 Dose: 40 mg Potassium Chloride (Klor-Con 10) 10 meq PO BRK [facility] Last Admin: 05/25/17 08:00 Dose: 10 meq Tramadol HCl (Ultram) 50 mg PO Q6H PRN PRN Reason: Pain, severe (8-10) Last Admin: 05/23/17 14:12 Dose: 50 mg - Labs Labs: 05/25/17 08:00 05/25/17 08:00 PT 12.5 SECONDS (9.7-12.2) H 05/22/17 08:48 INR 1.1 05/22/17 08:48 APTT 31 SECONDS (21-34) 05/22/17 08:48 - Head Exam Head Exam: ATRAUMATIC - Eye Exam Eye Exam: Normal appearance - ENT Exam ENT Exam: Mucous Membranes Dry - Respiratory Exam Respiratory Exam: NORMAL BREATHING PATTERN - Cardiovascular Exam Cardiovascular Exam: +S1, +S2 - GI/Abdominal Exam GI & Abdominal Exam: Normal Bowel Sounds Assessment and Plan (1) Swelling of right upper extremity Assessment & Plan: ? lymphedema negative US at IJ and subclavian on right Status: Acute (2) Breast cancer Assessment & Plan: ? metastatic disease; lung and bone lesions will discuss with IR for possible percutaneous biopsy Status: Acute
[2017-05-26] MEDS: Albuterol-Ipratrop 3 mg / 0.5 (3 ml) UD INH SCH ×4 (01:53→20:07)
[2017-05-26] MEDS: Potassium Chloride 10 mEq ER Tab PO SCH (08:00)
[2017-05-26 08:35] LABS: HEMOGLOBIN 11.2 g/dL (11.0-16.0); LYMPH # 0.6 K/uL (1.0-4.3); LYMPH % 7.7 % (20.0-40.0); MEAN CELL VOLUME 75.4 fL (81.0-99.0); MEAN CORPUSCULAR HEMOGLOBIN 24.1 pg (27.0-31.0); MEAN CORPUSCULAR HGB CONC 31.9 g/dL (33.0-37.0); MEAN PLATELET VOLUME 7.8 fL (7.2-11.7); MONO # 0.3 K/uL (0.0-0.8); MONO % 3.5 % (0.0-10.0); NEUT # 7.4 K/uL (1.8-7.0); NEUT % 88.8 % (50.0-75.0); PLATELET COUNT 360 K/uL (130-400); RBC 4.67 Mil/uL (3.80-5.20); RED CELL DISTRIBUTION WIDTH 14.8 % (11.5-14.5); WHITE BLOOD COUNT 8.3 K/uL (4.8-10.8)
[2017-05-26 08:56] LABS: ALB/GLOB RATIO 1.1 (1.0-2.1); ALT/SGPT 27 U/L (9-52); AST/SGOT 34 U/L (14-36); BLOOD UREA NITROGEN 27 mg/dL (7-17); CALCIUM 9.8 mg/dl (8.6-10.4); GFR AFRICAN-AMERICAN > 60; GFR NON-AFRICAN AMERICAN > 60; MAGNESIUM 2.2 mg/dL (1.6-2.3)
[2017-05-26 09:07] LABS: LYMPHOCYTE 7 % (20-40); MONOCYTE 1 % (0-10); NEUTROPHIL 92 % (50-75); PLATELET ESTIMATE NORMAL (NORMAL); TOTAL CELLS COUNTED 100
[2017-05-26 09:08] LABS: ANISOCYTOSIS SLIGHT
[2017-05-26 09:09] LABS: HYPOCHROMIC SLIGHT; MICROCYTOSIS SLIGHT
[2017-05-26] MEDS: Enoxaparin 40 mg Syringe SC SCH (10:13)
[2017-05-26] MEDS: Azithromycin 500 MG in Sodium Chloride 0.9% 250 ML IVPB SCH (10:44)
--- NOTE | 2017-05-26 12:03 | VASCLAB ---
PROCEDURE: Lower Extremity Venous Duplex Exam. HISTORY: Pain in limb, r/o dvt PRIORS: None. TECHNIQUE: Bilateral common femoral, femoral, popliteal and posterior tibial, peroneal and great saphenous veins were evaluated. Flow was assessed with color Doppler, compressibility, assessment of phasic flow and augmentation response. Report prepared by Ander Prasad, KISHA, RVT FINDINGS: RIGHT: 1. Common Femoral Vein: 1.1. Compressibility - Fully compressible: Thrombus - None : Flow - Phasic: Augmentation -Normal: Reflux - None. 2. Femoral Vein: 2.1. Compressibility - Fully compressible: Thrombus - None : Flow - Phasic: Augmentation -Normal: Reflux - None. 3. Popliteal Vein: 3.1. Compressibility - Fully compressible: Thrombus - None : Flow - Phasic: Augmentation -Normal: Reflux - Moderate. 2.79s 4. Posterior Tibial Vein: 4.1. Compressibility - Fully compressible: Thrombus - None: Flow - Phasic: Augmentation -Normal: Reflux - None. 5. Peroneal Vein: 5.1. Compressibility - Fully compressible: Thrombus - None: Flow - Phasic: Augmentation -Normal: Reflux - Moderate.2.98s 6. Great Saphenous Vein: 6.1. Compressibility - Fully compressible: Thrombus - None: Flow - Phasic: Augmentation - Normal: Reflux - None. LEFT: 1. Common Femoral Vein: 1.1. Compressibility - Fully compressible: Thrombus - None: Flow - Phasic: Augmentation -Normal: Reflux - None. 2. Femoral Vein: 2.1. Compressibility - Fully compressible: Thrombus - None: Flow - Phasic: Augmentation -Normal: Reflux - None. 3. Popliteal Vein: 3.1. Compressibility - Fully compressible: Thrombus - None : Flow - Phasic: Augmentation -Normal: Reflux - None. 4. Posterior Tibial Vein: 4.1. Compressibility - Fully compressible: Thrombus - None: Flow - Phasic: Augmentation -Normal: Reflux - None. 5. Peroneal Vein: 5.1. Compressibility - Fully compressible: Thrombus - None: Flow - Phasic: Augmentation -Normal: Reflux - None. 6. Great Saphenous Vein: 6.1. Compressibility - Fully compressible: Thrombus - None: Flow - Phasic: Augmentation - Normal: Reflux - None. OTHER FINDINGS: Right: None significant. Left: None significant. IMPRESSION: Right: No evidence of deep or superficial vein thrombosis of the right lower extremity. Valvular incompetence noted of the right popliteal and peroneal veins. Left: No evidence of deep or superficial vein thrombosis of the left lower extremity. Normal valve function noted of the left side.
--- NOTE | 2017-05-26 14:02 | CP.PCM.PN ---
Subjective - Date & Time of Evaluation Date of Evaluation: 05/26/17 Time of Evaluation: 10:40 - Subjective Subjective: clinically same Objective - Vital Signs/Intake and Output Vital Signs (last 24 hours): Temp Pulse Resp BP Pulse Ox 97.7 F 73 20 111/74 99 05/26/17 07:13 05/26/17 07:13 05/26/17 07:13 05/26/17 07:13 05/26/17 07:13 Intake and Output: 05/26/17 05/26/17 06:59 18:59 Intake Total 800 Balance 800 - Medications Medications: Current Medications Albuterol/Ipratropium (Duoneb 3 Mg/0.5 Mg (3 Ml) Ud) 3 ml INH RQ6 [facility] Last Admin: 05/26/17 13:45 Dose: 3 ml Anastrozole (Arimidex 1 Mg Tab) 1 mg PO DAILY [facility] Last Admin: 05/26/17 10:47 Dose: 1 mg Azithromycin (Zithromax) 500 mg PO DAILY [facility] Docusate Sodium (Colace) 100 mg PO TID [facility] Last Admin: 05/26/17 10:16 Dose: 100 mg Enoxaparin Sodium (Lovenox) 40 mg SC DAILY [facility] Last Admin: 05/26/17 10:13 Dose: 40 mg Gabapentin (Neurontin) 400 mg PO TID [facility] Last Admin: 05/26/17 10:15 Dose: 400 mg Hydrochlorothiazide (Hydrodiuril) 25 mg PO DAILY [facility] Last Admin: 05/26/17 10:15 Dose: 25 mg Ceftriaxone Sodium 1 gm/ (Sodium Chloride) 100 mls @ 100 mls/hr IVPB DAILY [facility] Last Admin: 05/26/17 10:10 Dose: 100 mls/hr Lisinopril (Zestril) 20 mg PO DAILY [facility] Last Admin: 05/26/17 10:15 Dose: 20 mg Methylprednisolone (Solu-Medrol) 40 mg IVP Q8 [facility] Last Admin: 05/25/17 21:10 Dose: 40 mg Pantoprazole Sodium (Protonix Inj) 40 mg IVP DAILY [facility] Last Admin: 05/26/17 10:08 Dose: 40 mg Potassium Chloride (Klor-Con 10) 10 meq PO BRK [facility] Last Admin: 05/26/17 08:00 Dose: 10 meq Tramadol HCl (Ultram) 50 mg PO Q6H PRN PRN Reason: Pain, severe (8-10) Last Admin: 05/23/17 14:12 Dose: 50 mg - Labs Labs: 05/26/17 08:23 05/26/17 08:23 PT 12.5 SECONDS (9.7-12.2) H 05/22/17 08:48 INR 1.1 05/22/17 08:48 APTT 31 SECONDS (21-34) 05/22/17 08:48 - Constitutional Appears: Well - Head Exam Head Exam: ATRAUMATIC, NORMAL INSPECTION, NORMOCEPHALIC - Eye Exam Eye Exam: EOMI, Normal appearance, PERRL Pupil Exam: NORMAL ACCOMODATION, PERRL - ENT Exam ENT Exam: Mucous Membranes Moist, Normal Exam - Neck Exam Neck Exam: Full ROM, Normal Inspection. absent: Lymphadenopathy - Respiratory Exam Respiratory Exam: Decreased Breath Sounds - Cardiovascular Exam Cardiovascular Exam: REGULAR RHYTHM, +S1, +S2 - GI/Abdominal Exam GI & Abdominal Exam: Soft, Diminished Bowel Sounds - Rectal Exam Rectal Exam: Deferred Assessment and Plan - Assessment and Plan (Free Text) Plan: This is a 57 yo female with 1. Metastatic breast cancer- stage III -heme onc. consult. recs appreciated. DR HERNANDES. -anastrazole 1 mg po daily -tramadol PRN for pain 2. R upper ext swelling -vascular sx consult. DR. HANCOCK. recs appreciated. -us showed no DVT in upper or lower extremities -continue compression sleeve on right -elevate arm at night -no surgical intervention at this time. 3. Shortness of breath/ community acquired pneumonia -Pulm consult. recs appreciated. -duonebs -continue IV azithromycin daily -continue IV rocephin daily -ID consult. DR HERRERA. recs appreciated. -blood cultures x 2 negative after 3 days. -continue solumedrol 40 IV q 8 hrs. -BNP within normal limits -Bipap as needed. -urine strep pneumo -urine legionella negative 4. Pulmonary nodule -CXR notes pulmonary nodule 1.5 cm -continue to monitor -pulm consult as above 5. hx of HTN -continue lisinopril daily -continue HCTZ daily 6. hx of hypokalemia -continue supplementation with potassium chloride daily -K within normal limits today. 5. GI/DVT ppx -continue lovenox daily -continue protonix
[2017-05-26] MEDS: MethylPREDNISolone 40 mg Vial IVP SCH ×2 (14:25→21:07)
--- NOTE | 2017-05-26 15:40 | CP.PCM.PN ---
<Wily Coats - Last Filed: 05/26/17 15:40> Subjective - Date & Time of Evaluation Date of Evaluation: 05/26/17 Time of Evaluation: 15:30 - Subjective Subjective: Progress note. Attending: Dr. Mitchell Pt seen and examined at bedside. No acute distress. Feeling better. No fevers, chills, vomiting, diarrhea. Objective - Vital Signs/Intake and Output Vital Signs (last 24 hours): Temp Pulse Resp BP Pulse Ox 97.7 F 73 20 111/74 99 05/26/17 07:13 05/26/17 07:13 05/26/17 07:13 05/26/17 07:13 05/26/17 07:13 Intake and Output: 05/26/17 05/26/17 06:59 18:59 Intake Total 800 Balance 800 - Medications Medications: Current Medications Albuterol/Ipratropium (Duoneb 3 Mg/0.5 Mg (3 Ml) Ud) 3 ml INH RQ6 [facility] Last Admin: 05/26/17 13:45 Dose: 3 ml Anastrozole (Arimidex 1 Mg Tab) 1 mg PO DAILY [facility] Last Admin: 05/26/17 10:47 Dose: 1 mg Azithromycin (Zithromax) 500 mg PO DAILY [facility] Docusate Sodium (Colace) 100 mg PO TID [facility] Last Admin: 05/26/17 14:25 Dose: 100 mg Enoxaparin Sodium (Lovenox) 40 mg SC DAILY [facility] Last Admin: 05/26/17 10:13 Dose: 40 mg Gabapentin (Neurontin) 400 mg PO TID [facility] Last Admin: 05/26/17 14:26 Dose: 400 mg Hydrochlorothiazide (Hydrodiuril) 25 mg PO DAILY [facility] Last Admin: 05/26/17 10:15 Dose: 25 mg Ceftriaxone Sodium 1 gm/ (Sodium Chloride) 100 mls @ 100 mls/hr IVPB DAILY [facility] Last Admin: 05/26/17 10:10 Dose: 100 mls/hr Lisinopril (Zestril) 20 mg PO DAILY [facility] Last Admin: 05/26/17 10:15 Dose: 20 mg Methylprednisolone (Solu-Medrol) 40 mg IVP Q8 [facility] Last Admin: 05/26/17 14:25 Dose: 40 mg Pantoprazole Sodium (Protonix Inj) 40 mg IVP DAILY [facility] Last Admin: 05/26/17 10:08 Dose: 40 mg Potassium Chloride (Klor-Con 10) 10 meq PO BRK [facility] Last Admin: 05/26/17 08:00 Dose: 10 meq Tramadol HCl (Ultram) 50 mg PO Q6H PRN PRN Reason: Pain, severe (8-10) Last Admin: 05/23/17 14:12 Dose: 50 mg - Labs Labs: 05/26/17 08:23 05/26/17 08:23 PT 12.5 SECONDS (9.7-12.2) H 05/22/17 08:48 INR 1.1 05/22/17 08:48 APTT 31 SECONDS (21-34) 05/22/17 08:48 - Constitutional Appears: Non-toxic, No Acute Distress, Chronically Ill - Head Exam Head Exam: ATRAUMATIC, NORMAL INSPECTION, NORMOCEPHALIC - Eye Exam Eye Exam: EOMI - ENT Exam ENT Exam: Mucous Membranes Moist - Respiratory Exam Respiratory Exam: NORMAL BREATHING PATTERN. absent: Respiratory Distress - Cardiovascular Exam Cardiovascular Exam: +S1, +S2 - GI/Abdominal Exam GI & Abdominal Exam: Soft, Normal Bowel Sounds. absent: Tenderness - Extremities Exam Extremities Exam: absent: Full ROM, Normal Inspection - Back Exam Back Exam: NORMAL INSPECTION - Neurological Exam Neurological Exam: Alert, Awake, Oriented x3 - Psychiatric Exam Psychiatric exam: Normal Affect, Normal Mood - Skin Skin Exam: Dry, Intact, Normal Color, Warm Assessment and Plan - Assessment and Plan (Free Text) Assessment: This is a 57 yo female with 1. Metastatic breast cancer- stage III -heme onc. consult. recs appreciated. DR HERNANDES. -anastrazole 1 mg po daily -tramadol PRN for pain 2. R upper ext swelling -vascular sx consult. DR. HANCOCK. recs appreciated. -us showed no DVT in upper or lower extremities -continue compression sleeve on right -elevate arm at night -no surgical intervention at this time. 3. Shortness of breath/ community acquired pneumonia -Pulm consult. recs appreciated. -duonebs -continue IV azithromycin daily -continue IV rocephin daily -ID consult. DR HERRERA. recs appreciated. -blood cultures x 2 negative after 3 days. -continue solumedrol 40 IV q 8 hrs. -BNP within normal limits -Bipap as needed. -urine strep pneumo -urine legionella negative 4. Pulmonary nodule -CXR notes pulmonary nodule 1.5 cm -continue to monitor -pulm consult as above 5. hx of HTN -continue lisinopril daily -continue HCTZ daily 6. hx of hypokalemia -continue supplementation with potassium chloride daily -K within normal limits today. 5. GI/DVT ppx -continue lovenox daily -continue protonix discussed with DR MITCHELL. <Amina Mitchell - Last Filed: 05/26/17 19:18> Objective - Vital Signs/Intake and Output Vital Signs (last 24 hours): Temp Pulse Resp BP Pulse Ox 97.9 F 72 20 109/65 99 05/26/17 16:51 05/26/17 16:51 05/26/17 16:51 05/26/17 16:51 05/26/17 16:51 - Medications Medications: Current Medications Albuterol/Ipratropium (Duoneb 3 Mg/0.5 Mg (3 Ml) Ud) 3 ml INH RQ6 [facility] Last Admin: 05/26/17 13:45 Dose: 3 ml Anastrozole (Arimidex 1 Mg Tab) 1 mg PO DAILY [facility] Last Admin: 05/26/17 10:47 Dose: 1 mg Azithromycin (Zithromax) 500 mg PO DAILY [facility] Docusate Sodium (Colace) 100 mg PO TID [facility] Last Admin: 05/26/17 17:52 Dose: 100 mg Enoxaparin Sodium (Lovenox) 40 mg SC DAILY [facility] Last Admin: 05/26/17 10:13 Dose: 40 mg Gabapentin (Neurontin) 400 mg PO TID [facility] Last Admin: 05/26/17 17:52 Dose: 400 mg Hydrochlorothiazide (Hydrodiuril) 25 mg PO DAILY [facility] Last Admin: 05/26/17 10:15 Dose: 25 mg Ceftriaxone Sodium 1 gm/ (Sodium Chloride) 100 mls @ 100 mls/hr IVPB DAILY [facility] Last Admin: 05/26/17 10:10 Dose: 100 mls/hr Lisinopril (Zestril) 20 mg PO DAILY [facility] Last Admin: 05/26/17 10:15 Dose: 20 mg Methylprednisolone (Solu-Medrol) 40 mg IVP Q8 [facility] Last Admin: 05/26/17 14:25 Dose: 40 mg Pantoprazole Sodium (Protonix Inj) 40 mg IVP DAILY [facility] Last Admin: 05/26/17 10:08 Dose: 40 mg Potassium Chloride (Klor-Con 10) 10 meq PO BRK [facility] Last Admin: 05/26/17 08:00 Dose: 10 meq Tramadol HCl (Ultram) 50 mg PO Q6H PRN PRN Reason: Pain, severe (8-10) Last Admin: 05/23/17 14:12 Dose: 50 mg - Labs Labs: 05/26/17 08:23 05/26/17 08:23 PT 12.5 SECONDS (9.7-12.2) H 05/22/17 08:48 INR 1.1 05/22/17 08:48 APTT 31 SECONDS (21-34) 05/22/17 08:48 Attending/Attestation - Attestation I have personally seen and examined this patient.: Yes I have fully participated in the care of the patient.: Yes I have reviewed all pertinent clinical information, including history, physical exam and plan: Yes Notes (Text): 05/26/17 19:18 case seen and d/w staff and resdient vs stable followup with consultatn
--- NOTE | 2017-05-26 17:37 | CP.PCM.PN ---
Subjective - Date & Time of Evaluation Date of Evaluation: 05/26/17 Time of Evaluation: 09:30 - Subjective Subjective: Patient was seen and evaluated. Patient walked to elevator yesterday and states that she felt less short of breath than before. Patient was off BiPAP this morning and reports improved breathing. She continues to complain of bilateral shoulder pain. Patient has no new complaints. Assessment and Plan: Patient is a 57 y.o F with PMH of right-sided breast cancer s/p neoadjuvant chemotherapy, mastectomy and axillary LN dissection, radiation, on hormonal therapy who presented with RUE swelling and SOB most likely due to malignancy or PNA. -Chest CT on 05/22 showed multiple bilateral pulmonary nodules right greater than left consistent with metastatic disease: mediastinal and right hilar adenopathy also suspicious for metastatic disease; minimal patchy airspace disease in the right apex; mild cardiomegaly, no aortic aneurysm, dissection or pulmonary embolus -Abd/pelvis CT on 05/22 showed right lower lobe pulmonary nodule suspicious for metastatic disease; sclerotic lesions in L3 and in the sacrum metastatic disease cannot be excluded -Duplex negative for UE DVT; no surgical intervention -Continue IV abx -Nebulizer treatments -BiPAP as needed -Solu-medrol -Blood culture negative x2 after 4 days -Heme/onc following for hx of breast cancer -Possible IR eval for percutaneous biopsy- mets to lung and bone? Objective - Vital Signs/Intake and Output Vital Signs (last 24 hours): Temp Pulse Resp BP Pulse Ox 97.9 F 72 20 109/65 99 05/26/17 16:51 05/26/17 16:51 05/26/17 16:51 05/26/17 16:51 05/26/17 16:51 Intake and Output: 05/26/17 05/26/17 06:59 18:59 Intake Total 800 Balance 800 - Medications Medications: Current Medications Albuterol/Ipratropium (Duoneb 3 Mg/0.5 Mg (3 Ml) Ud) 3 ml INH RQ6 [facility] Last Admin: 05/26/17 13:45 Dose: 3 ml Anastrozole (Arimidex 1 Mg Tab) 1 mg PO DAILY [facility] Last Admin: 05/26/17 10:47 Dose: 1 mg Azithromycin (Zithromax) 500 mg PO DAILY [facility] Docusate Sodium (Colace) 100 mg PO TID [facility] Last Admin: 05/26/17 14:25 Dose: 100 mg Enoxaparin Sodium (Lovenox) 40 mg SC DAILY [facility] Last Admin: 05/26/17 10:13 Dose: 40 mg Gabapentin (Neurontin) 400 mg PO TID [facility] Last Admin: 05/26/17 14:26 Dose: 400 mg Hydrochlorothiazide (Hydrodiuril) 25 mg PO DAILY [facility] Last Admin: 05/26/17 10:15 Dose: 25 mg Ceftriaxone Sodium 1 gm/ (Sodium Chloride) 100 mls @ 100 mls/hr IVPB DAILY [facility] Last Admin: 05/26/17 10:10 Dose: 100 mls/hr Lisinopril (Zestril) 20 mg PO DAILY [facility] Last Admin: 05/26/17 10:15 Dose: 20 mg Methylprednisolone (Solu-Medrol) 40 mg IVP Q8 [facility] Last Admin: 05/26/17 14:25 Dose: 40 mg Pantoprazole Sodium (Protonix Inj) 40 mg IVP DAILY [facility] Last Admin: 05/26/17 10:08 Dose: 40 mg Potassium Chloride (Klor-Con 10) 10 meq PO BRK [facility] Last Admin: 05/26/17 08:00 Dose: 10 meq Tramadol HCl (Ultram) 50 mg PO Q6H PRN PRN Reason: Pain, severe (8-10) Last Admin: 05/23/17 14:12 Dose: 50 mg - Labs Labs: 05/26/17 08:23 05/26/17 08:23 PT 12.5 SECONDS (9.7-12.2) H 05/22/17 08:48 INR 1.1 05/22/17 08:48 APTT 31 SECONDS (21-34) 05/22/17 08:48
--- NOTE | 2017-05-26 18:52 | CP.PCM.CON ---
History of Present Illness - History of Present Illness History of Present Illness: Patient is a 57 y.o F with PMH of right-sided breast cancer s/p chemotherapy, mastectomy and axillary LN dissection, radiation, on hormonal therapy who presented with RUE swelling and SOB most likely due to malignancy or PNA. REFERRED FOR ID EVAL FOR PNEUMONIA IV RX ORDERED CULTURES PENDING -Chest CT on 05/22 showed multiple bilateral pulmonary nodules right greater than left consistent with metastatic disease: mediastinal and right hilar adenopathy also suspicious for metastatic disease; minimal patchy airspace disease in the right apex; mild cardiomegaly, no aortic aneurysm, dissection or pulmonary embolus -Abd/pelvis CT on 05/22 showed right lower lobe pulmonary nodule suspicious for metastatic disease; sclerotic lesions in L3 and in the sacrum metastatic disease cannot be excluded Review of Systems - Constitutional Constitutional: As Per HPI - EENT Eyes: absent: As Per HPI, Blind Spots, Blurred Vision, Change in Vision, Decreased Night Vision, Diplopia, Discharge, Dry Eye, Exophthalmos, Floaters, Irritation, Itchy Eyes, Loss of Peripheral Vision, Pain, Photophobia, Requires Corrective Lenses, Sees Flashes, Spots in Vision, Tunnel Vision, Other Visual Disturbances, Loss of Vision, Other Ears: absent: As Per HPI, Decreased Hearing, Ear Discharge, Ear Pain, Tinnitus, Abnormal Hearing, Disequilibrium, Dizziness, Other Nose/Mouth/Throat: absent: As Per HPI, Epistaxis, Nasal Congestion, Nasal Discharge, Nasal Obstruction, Nasal Trauma, Nose Pain, Post Nasal Drip, Sinus Pain, Sinus Pressure, Bleeding Gums, Change in Voice, Dental Pain, Dry Mouth, Dysphagia, Halitosis, Hoarsness, Lip Swelling, Mouth Lesions, Mouth Pain, Odynophagia, Sore Throat, Throat Swelling, Tongue Swelling, Facial Pain, Neck Pain, Neck Mass, Other - Breasts Breasts: As Per HPI - Cardiovascular Cardiovascular: As Per HPI - Respiratory Respiratory: As Per HPI - Gastrointestinal Gastrointestinal: absent: As Per HPI, Abdominal Pain, Belching, Bloating, Change in Bowel Habits, Change in Stool Character, Coffee Ground Emesis, Constipation, Cramping, Diarrhea, Dyspepsia, Dysphagia, Early Satiety, Excessive Flatus, Fecal Incontinence, Heartburn, Hematemesis, Hematochezia, Loose Stools, Melena, Nausea, Odynophagia, Temesmus, Vomiting, Other - Genitourinary Genitourinary: absent: As Per HPI, Change in Urinary Stream, Difficulty Urinating, Dysuria, Flank Pain, Hematuria, Pyuria, Nocturia, Urinary Incontinence, Urinary Frequency, Urinary Hesitance, Urinary Urgency, Voiding Freq/Small Amts, Freq UTI, Hx Renal/Bladder Calculi, Hx /Renal Surgery, Bladder Distension, Other - Reproductive: Female Reproductive:Female: absent: As Per HPI, Amenorrhea, Amenorrhea/ Control, Currently Menstual, Cycle <21 Days, Cycle >35 Days, Cycle Variable, Menses 1-7 Days, Menses >/= 8 Days, Menses Variable, Cycle > 4 Weeks Between, No Menses for 6 Months, Heavy Menses, Light Menses, Normal Menses, Spotting Between Cycles , S/P Hysterectomy, Menopausal, Post Menopausal, Premenarche, Abnormal Vaginal Bleeding, Dysmenorrhea, Dyspareunia, Genital Lesions, Genital Pruritis, Pelvic Pain, Prolapse Symptoms, Sexual Dysfunction, Vaginal Discharge, Vaginal Dryness , Vaginal Odor, Vaginal Pruritis, Other - Menstruation Menstruation: absent: As Per HPI, Amenorrhea, Amenorrhea/ Control, Currently Menstual, Cycle <21 Days, Cycle >35 Days, Cycle Variable, Menses 1-7 Days, Menses >/= 8 Days, Menses Variable, Cycle > 4 Weeks Between, No Menses for 6 Months, Heavy Menses, Light Menses, Normal Menses, Spotting Between Cycles , S/P Hysterectomy, Menopausal, Post Menopausal, Premenarche, Abnormal Vaginal Bleeding, Dysmenorrhea, Other - Musculoskeletal Musculoskeletal: absent: As Per HPI, Abnormal Gait, Arthralgias, Atrophy, Back Pain, Deformity, Joint Swelling, Limited Range of Motion, Loss of Height, Muscle Cramps, Muscle Weakness, Myalgias, Neck Pain, Numbness, Radiating Pain into Limb, Stiffness, Tingling, Other - Integumentary Integumentary: absent: As Per HPI, Acne, Alopecia, Bleeding Lesions, Change in Hair, Change in Nails, Change in Pigmentation, Changing Lesions, Dry Skin, Erythema, Furuncle, Hirsutism, Lesions, New Lesions, Non-Healing Lesions, Photosensitivity, Pruritus, Rash, Skin Pain, Skin Ulcer, Sores, Striae, Swelling , Unusual Bruising, Wounds, Jaundice, Other - Neurological Neurological: absent: As Per HPI, Abnormal Gait, Abnormal Hearing, Abnormal Movements, Abnormal Speech, Behavioral Changes, Burning Sensations, Confusion, Convulsions, Disequilibrium, Dizziness, Numbness, Focal Weakness, Frequent Falls , Headaches, Lack of Coordination, Loss of Vision, Memory Loss, Paresthesias, Radicular Pain, Restless Legs, Sensory Deficit, Syncope, Tingling, Tremor, Vertigo, Weakness, Other Visual Disturbances, Other - Psychiatric Psychiatric: absent: As Per HPI, Abnormal Sleep Pattern, Anhedonia, Anxiety, Auditory Hallucinations, Behavioral Changes, Change in Appetite, Change in Libido, Confusion, Depression, Difficulty Concentrating, Hallucinations, Homicidal Ideation, Hopelessness, Irritability, Memory Loss, Mood Swings, Panic Attacks, Paranoia, Suicidal Ideation, Visual Hallucinations, Tactile Hallucinations, Other - Endocrine Endocrine: absent: As Per HPI, Change in Body Appearance, Change in Libido, Cold Intolorance, Deepening of Voice, Excessive Sweating, Fatigue, Flushing, Heat Intolorance, Increase in Ring/Shoe/Hat Size, Palpitations, Polydipsia, Polyphagia, Polyuria, Other - Hematologic/Lymphatic Hematologic: absent: As Per HPI, Easy Bleeding, Easy Bruising, Lymphadenopathy, Other Past Patient History - Past Medical History & Family History Past Medical History?: Yes - Past Social History Smoking Status: Never Smoked - CARDIAC Hx Hypertension: Yes Hx Pacemaker: No - PULMONARY Hx Asthma: Yes (CHILDHOOD NO MEDS) Hx Pneumonia: Yes (Childhood) - NEUROLOGICAL Hx Neurological Disorder: No - HEENT Hx HEENT Problems: No Other/Comment: GLASSES - RENAL Hx Chronic Kidney Disease: No - ENDOCRINE/METABOLIC Hx Endocrine Disorders: No - HEMATOLOGICAL/ONCOLOGICAL Hx Cancer: Yes (breast) - INTEGUMENTARY Hx Dermatological Problems: No - MUSCULOSKELETAL/RHEUMATOLOGICAL Hx Falls: No Hx Fractures: Yes (TOE/ARM NO SURGERY) - GENITOURINARY/GYNECOLOGICAL Hx Genitourinary Disorders: Yes Other/Comment: right breast cancer - PSYCHIATRIC Hx Substance Use: No - SURGICAL HISTORY Hx Surgeries: Yes Hx Section: Yes (one) Other/Comment: breast removal s/p breast ca july 2014. - ANESTHESIA Hx Anesthesia: Yes Hx Anesthesia Reactions: No Hx Malignant Hyperthermia: No Meds Allergies/Adverse Reactions: Allergies Allergy/AdvReac Type Severity Reaction Status Date / Time No Known Allergies Allergy Verified 05/22/17 08:01 - Medications Medications: Current Medications Albuterol/Ipratropium (Duoneb 3 Mg/0.5 Mg (3 Ml) Ud) 3 ml INH RQ6 [facility] Last Admin: 05/26/17 13:45 Dose: 3 ml Anastrozole (Arimidex 1 Mg Tab) 1 mg PO DAILY [facility] Last Admin: 05/26/17 10:47 Dose: 1 mg Azithromycin (Zithromax) 500 mg PO DAILY [facility] Docusate Sodium (Colace) 100 mg PO TID [facility] Last Admin: 05/26/17 17:52 Dose: 100 mg Enoxaparin Sodium (Lovenox) 40 mg SC DAILY [facility] Last Admin: 05/26/17 10:13 Dose: 40 mg Gabapentin (Neurontin) 400 mg PO TID [facility] Last Admin: 05/26/17 17:52 Dose: 400 mg Hydrochlorothiazide (Hydrodiuril) 25 mg PO DAILY [facility] Last Admin: 05/26/17 10:15 Dose: 25 mg Ceftriaxone Sodium 1 gm/ (Sodium Chloride) 100 mls @ 100 mls/hr IVPB DAILY [facility] Last Admin: 05/26/17 10:10 Dose: 100 mls/hr Lisinopril (Zestril) 20 mg PO DAILY [facility] Last Admin: 05/26/17 10:15 Dose: 20 mg Methylprednisolone (Solu-Medrol) 40 mg IVP Q8 [facility] Last Admin: 05/26/17 14:25 Dose: 40 mg Pantoprazole Sodium (Protonix Inj) 40 mg IVP DAILY [facility] Last Admin: 05/26/17 10:08 Dose: 40 mg Potassium Chloride (Klor-Con 10) 10 meq PO BRK [facility] Last Admin: 05/26/17 08:00 Dose: 10 meq Tramadol HCl (Ultram) 50 mg PO Q6H PRN PRN Reason: Pain, severe (8-10) Last Admin: 05/23/17 14:12 Dose: 50 mg Physical Exam - Constitutional Appears: Non-toxic, Chronically Ill - Head Exam Head Exam: NORMOCEPHALIC - Eye Exam Eye Exam: PERRL. absent: Scleral icterus - ENT Exam ENT Exam: Mucous Membranes Dry, Normal External Ear Exam - Neck Exam Neck exam: Negative for: Lymphadenopathy - Respiratory Exam Respiratory Exam: Decreased Breath Sounds, Prolonged Expiratory Phase, Rhonchi - Cardiovascular Exam Cardiovascular Exam: REGULAR RHYTHM, +S1, +S2 - GI/Abdominal Exam GI & Abdominal Exam: Diminished Bowel Sounds, Distended, Soft. absent: Tenderness - Rectal Exam Rectal Exam: Deferred - Exam Exam: NORMAL INSPECTION - Extremities Exam Extremities exam: Positive for: pedal edema, pedal pulses present. Negative for : calf tenderness, tenderness - Back Exam Back exam: absent: CVA tenderness (L), CVA tenderness (R) - Neurological Exam Neurological exam: Alert, CN II-XII Intact, Oriented x3, Reflexes Normal - Psychiatric Exam Psychiatric exam: Normal Mood - Skin Skin Exam: Dry Results - Vital Signs Recent Vital Signs: Last Vital Signs Temp 97.9 F 05/26/17 16:51 Pulse 72 05/26/17 16:51 Resp 20 05/26/17 16:51 BP 109/65 05/26/17 16:51 Pulse Ox 99 05/26/17 16:51 - Labs Result Diagrams: 05/26/17 08:23 05/26/17 08:23 Labs: Laboratory Results - last 24 hr 05/25/17 05/26/17 05/26/17 21:30 08:23 08:23 WBC 8.3 RBC 4.67 Hgb 11.2 Hct 35.2 MCV 75.4 L MCH 24.1 L MCHC 31.9 L RDW 14.8 H Plt Count 360 MPV 7.8 Neut % (Auto) 88.8 H Lymph % (Auto) 7.7 L [place] % (Auto) 3.5 Eos % (Auto) 0.0 Baso % (Auto) 0.0 Neut # (Auto) 7.4 H Lymph # (Auto) 0.6 L [place] # (Auto) 0.3 Eos # (Auto) 0.0 Baso # (Auto) 0.0 Neutrophils % (Manual) 92 H Lymphocytes % (Manual) 7 L Monocytes % (Manual) 1 Platelet Estimate Normal Hypochromasia (manual) Slight Anisocytosis (manual) Slight Microcytosis (manual) Slight Sodium 137 Potassium 4.0 Chloride 98 Carbon Dioxide 28 Anion Gap 14 BUN 27 H Creatinine 0.9 Est GFR ( Amer) > 60 Est GFR (Non-Af Amer) > 60 Random Glucose 156 H Calcium 9.8 Phosphorus 2.8 Magnesium 2.2 Total Bilirubin 0.6 AST 34 ALT 27 Alkaline Phosphatase 90 Total Protein 7.8 Albumin 4.0 Globulin 3.8 Albumin/Globulin Ratio 1.1 Ur L.pneumophila Ag Negative Assessment & Plan (1) Pneumonia Status: Acute (2) Breast cancer in female Status: Acute (3) Edema of both legs Status: Acute (4) Swelling of right upper extremity Status: Acute (5) Bronchitis Status: Acute (6) Leukopenia Status: Acute - Assessment and Plan (Free Text) Assessment: CONT IV ANTIBIOTICS AWAIT CULTURES MAY NEED BIOPSY
[2017-05-27] MEDS: Albuterol-Ipratrop 3 mg / 0.5 (3 ml) UD INH SCH ×4 (01:51→19:19)
[2017-05-27] MEDS: MethylPREDNISolone 40 mg Vial IVP SCH ×3 (05:46→21:40)
[2017-05-27 08:21] LABS: ALB/GLOB RATIO 0.9 (1.0-2.1); ALBUMIN 3.7 g/dL (3.5-5.0); CALCIUM 9.2 mg/dl (8.6-10.4); GFR AFRICAN-AMERICAN > 60; GFR NON-AFRICAN AMERICAN > 60
[2017-05-27 08:31] LABS: ALT/SGPT 24 U/L (9-52); AST/SGOT 33 U/L (14-36); BLOOD UREA NITROGEN 24 mg/dL (7-17)
[2017-05-27 08:35] LABS: BASO % 0.2 % (0.0-2.0); EOS % 0.1 % (0.0-4.0); LYMPH % 10.1 % (20.0-40.0); MEAN CELL VOLUME 74.6 fL (81.0-99.0); MEAN CORPUSCULAR HEMOGLOBIN 24.2 pg (27.0-31.0); MEAN CORPUSCULAR HGB CONC 32.4 g/dL (33.0-37.0); MONO # 0.5 K/uL (0.0-0.8); MONO % 4.8 % (0.0-10.0); NEUT # 8.3 K/uL (1.8-7.0); NEUT % 84.8 % (50.0-75.0); NRBC % 0.3 % (0.0-2.0); RBC 4.55 Mil/uL (3.80-5.20); WHITE BLOOD COUNT 9.8 K/uL (4.8-10.8)
[2017-05-27] MEDS: Potassium Chloride 10 mEq ER Tab PO SCH (08:49)
[2017-05-27] MEDS: Enoxaparin 40 mg Syringe SC SCH (10:19)
--- NOTE | 2017-05-27 10:39 | CP.PCM.CON ---
History of Present Illness - History of Present Illness History of Present Illness: Palliative consult requested by Doctor Sean Ramos for goals of care and Code status discussion. Patient is a 57 yo female admitted from home with Right arm swelling associated with SOB X 2 weeks. Patient reports right arm feeling heavy, painful and pain is worse with movements. Tramadol 50 mh Q 6 hr PRN pain on board. The CT chest was significant for multiple nodules, more to right lung. Doctor Arthur fallows and suggested the Bx of those nodules. Patient was also found to have UTI, Gram + cocci and Rocephin IV initiated. PMH: Right brast CA, S/P right mastectomy and nodule resection, post chemo Tx and radiation, on hormonal Tx, HTN, asthma Soc. Hx: single, lives with family, has one son Fam. hx: Twin brother recently from kidney [place] Review of Systems - Constitutional Constitutional: absent: As Per HPI, Anorexia, Chills, Daytime Sleepiness, Excessive Sweating, Fatigue, Fever, Frequent Falls, Headache, Increased Appetite , Lethargy, Malaise, Night Sweats, Snoring, Sleep Apnea, Weight Gain, Weight Loss, Weakness, Other - EENT Eyes: absent: As Per HPI, Blind Spots, Blurred Vision, Change in Vision, Decreased Night Vision, Diplopia, Discharge, Dry Eye, Exophthalmos, Floaters, Irritation, Itchy Eyes, Loss of Peripheral Vision, Pain, Photophobia, Requires Corrective Lenses, Sees Flashes, Spots in Vision, Tunnel Vision, Other Visual Disturbances, Loss of Vision, Other Ears: absent: As Per HPI, Decreased Hearing, Ear Discharge, Ear Pain, Tinnitus, Abnormal Hearing, Disequilibrium, Dizziness, Other Nose/Mouth/Throat: absent: As Per HPI, Epistaxis, Nasal Congestion, Nasal Discharge, Nasal Obstruction, Nasal Trauma, Nose Pain, Post Nasal Drip, Sinus Pain, Sinus Pressure, Bleeding Gums, Change in Voice, Dental Pain, Dry Mouth, Dysphagia, Halitosis, Hoarsness, Lip Swelling, Mouth Lesions, Mouth Pain, Odynophagia, Sore Throat, Throat Swelling, Tongue Swelling, Facial Pain, Neck Pain, Neck Mass, Other - Breasts Additional comments: Right mastectomy - Cardiovascular Cardiovascular: Edema - Respiratory Respiratory: Pain on Inspiration - Gastrointestinal Gastrointestinal: Constipation - Genitourinary Genitourinary: absent: As Per HPI, Change in Urinary Stream, Difficulty Urinating, Dysuria, Flank Pain, Hematuria, Pyuria, Nocturia, Urinary Incontinence, Urinary Frequency, Urinary Hesitance, Urinary Urgency, Voiding Freq/Small Amts, Freq UTI, Hx Renal/Bladder Calculi, Hx /Renal Surgery, Bladder Distension, Other - Reproductive: Female Reproductive:Female: Post Menopausal - Menstruation Menstruation: Post Menopausal - Musculoskeletal Musculoskeletal: Back Pain, Deformity, Limited Range of Motion, Muscle Weakness - Integumentary Integumentary: absent: As Per HPI, Acne, Alopecia, Bleeding Lesions, Change in Hair, Change in Nails, Change in Pigmentation, Changing Lesions, Dry Skin, Erythema, Furuncle, Hirsutism, Lesions, New Lesions, Non-Healing Lesions, Photosensitivity, Pruritus, Rash, Skin Pain, Skin Ulcer, Sores, Striae, Swelling , Unusual Bruising, Wounds, Jaundice, Other - Neurological Neurological: absent: As Per HPI, Abnormal Gait, Abnormal Hearing, Abnormal Movements, Abnormal Speech, Behavioral Changes, Burning Sensations, Confusion, Convulsions, Disequilibrium, Dizziness, Numbness, Focal Weakness, Frequent Falls , Headaches, Lack of Coordination, Loss of Vision, Memory Loss, Paresthesias, Radicular Pain, Restless Legs, Sensory Deficit, Syncope, Tingling, Tremor, Vertigo, Weakness, Other Visual Disturbances, Other - Psychiatric Psychiatric: absent: As Per HPI, Abnormal Sleep Pattern, Anhedonia, Anxiety, Auditory Hallucinations, Behavioral Changes, Change in Appetite, Change in Libido, Confusion, Depression, Difficulty Concentrating, Hallucinations, Homicidal Ideation, Hopelessness, Irritability, Memory Loss, Mood Swings, Panic Attacks, Paranoia, Suicidal Ideation, Visual Hallucinations, Tactile Hallucinations, Other - Endocrine Endocrine: absent: As Per HPI, Change in Body Appearance, Change in Libido, Cold Intolorance, Deepening of Voice, Excessive Sweating, Fatigue, Flushing, Heat Intolorance, Increase in Ring/Shoe/Hat Size, Palpitations, Polydipsia, Polyphagia, Polyuria, Other - Hematologic/Lymphatic Hematologic: absent: As Per HPI, Easy Bleeding, Easy Bruising, Lymphadenopathy, Other Past Patient History - Past Medical History & Family History Past Medical History?: Yes - Past Social History Smoking Status: Never Smoked - CARDIAC Hx Hypertension: Yes Hx Pacemaker: No - PULMONARY Hx Asthma: Yes (CHILDHOOD NO MEDS) Hx Pneumonia: Yes (Childhood) - NEUROLOGICAL Hx Neurological Disorder: No - HEENT Hx HEENT Problems: No Other/Comment: GLASSES - RENAL Hx Chronic Kidney Disease: No - ENDOCRINE/METABOLIC Hx Endocrine Disorders: No - HEMATOLOGICAL/ONCOLOGICAL Hx Cancer: Yes (breast) - INTEGUMENTARY Hx Dermatological Problems: No - MUSCULOSKELETAL/RHEUMATOLOGICAL Hx Falls: No Hx Fractures: Yes (TOE/ARM NO SURGERY) - GENITOURINARY/GYNECOLOGICAL Hx Genitourinary Disorders: Yes Other/Comment: right breast cancer - PSYCHIATRIC Hx Substance Use: No - SURGICAL HISTORY Hx Surgeries: Yes Hx Section: Yes (one) Other/Comment: breast removal s/p breast ca july 2014. - ANESTHESIA Hx Anesthesia: Yes Hx Anesthesia Reactions: No Hx Malignant Hyperthermia: No Meds Allergies/Adverse Reactions: Allergies Allergy/AdvReac Type Severity Reaction Status Date / Time No Known Allergies Allergy Verified 05/22/17 08:01 - Medications Medications: Current Medications Albuterol/Ipratropium (Duoneb 3 Mg/0.5 Mg (3 Ml) Ud) 3 ml INH RQ6 [facility] Last Admin: 05/27/17 07:20 Dose: 3 ml Anastrozole (Arimidex 1 Mg Tab) 1 mg PO DAILY [facility] Last Admin: 05/27/17 10:22 Dose: 1 mg Azithromycin (Zithromax) 500 mg PO DAILY [facility] Last Admin: 05/27/17 10:28 Dose: 500 mg Docusate Sodium (Colace) 100 mg PO TID [facility] Last Admin: 05/27/17 10:19 Dose: 100 mg Enoxaparin Sodium (Lovenox) 40 mg SC DAILY [facility] Last Admin: 05/27/17 10:19 Dose: 40 mg Gabapentin (Neurontin) 400 mg PO TID [facility] Last Admin: 05/27/17 10:19 Dose: 400 mg Hydrochlorothiazide (Hydrodiuril) 25 mg PO DAILY [facility] Last Admin: 05/27/17 10:19 Dose: 25 mg Ceftriaxone Sodium 1 gm/ (Sodium Chloride) 100 mls @ 100 mls/hr IVPB DAILY [facility] Last Admin: 05/27/17 10:28 Dose: 100 mls/hr Lisinopril (Zestril) 20 mg PO DAILY [facility] Last Admin: 05/27/17 10:20 Dose: 20 mg Methylprednisolone (Solu-Medrol) 40 mg IVP Q8 [facility] Last Admin: 05/27/17 05:46 Dose: 40 mg Pantoprazole Sodium (Protonix Inj) 40 mg IVP DAILY [facility] Last Admin: 05/27/17 10:19 Dose: 40 mg Potassium Chloride (Klor-Con 10) 10 meq PO BRK [facility] Last Admin: 05/27/17 08:49 Dose: 10 meq Tramadol HCl (Ultram) 50 mg PO Q6H PRN PRN Reason: Pain, severe (8-10) Last Admin: 05/26/17 23:47 Dose: 50 mg Physical Exam - Constitutional Appears: No Acute Distress - Head Exam Head Exam: ATRAUMATIC, NORMAL INSPECTION, NORMOCEPHALIC - Eye Exam Eye Exam: EOMI, Normal appearance, PERRL Pupil Exam: NORMAL ACCOMODATION, PERRL - ENT Exam ENT Exam: Mucous Membranes Moist, Normal Exam - Neck Exam Neck exam: Positive for: Normal Inspection - Respiratory Exam Respiratory Exam: Decreased Breath Sounds, NORMAL BREATHING PATTERN - Cardiovascular Exam Cardiovascular Exam: Tachycardia, REGULAR RHYTHM - GI/Abdominal Exam GI & Abdominal Exam: Hypoactive Bowel Sounds Additional comments: complains of constipation - Rectal Exam Rectal Exam: Deferred - Extremities Exam Extremities exam: Positive for: normal inspection - Back Exam Back exam: NORMAL INSPECTION - Neurological Exam Neurological exam: Alert, Oriented x3 - Psychiatric Exam Psychiatric exam: Normal Affect, Normal Mood - Skin Skin Exam: Dry, Intact, Normal Color, Warm Results - Vital Signs Recent Vital Signs: Last Vital Signs Temp 97.8 F 05/26/17 23:30 Pulse 72 05/27/17 07:20 Resp 20 05/26/17 23:30 BP 120/68 05/26/17 23:30 Pulse Ox 97 05/26/17 23:30 - Labs Result Diagrams: 05/27/17 07:55 05/27/17 07:55 Labs: Laboratory Results - last 24 hr 05/27/17 05/27/17 05/27/17 07:55 07:55 07:57 WBC 9.8 RBC 4.55 Hgb 11.0 Hct 34.0 MCV 74.6 L MCH 24.2 L MCHC 32.4 L RDW 15.0 H Plt Count 341 MPV 8.0 Neut % (Auto) 84.8 H Lymph % (Auto) 10.1 L [place] % (Auto) 4.8 Eos % (Auto) 0.1 Baso % (Auto) 0.2 Neut # (Auto) 8.3 H Lymph # (Auto) 1.0 [place] # (Auto) 0.5 Eos # (Auto) 0.0 Baso # (Auto) 0.0 Sodium 135 Potassium 4.2 Chloride 98 Carbon Dioxide 26 Anion Gap 15 BUN 24 H Creatinine 0.7 Est GFR ( Amer) > 60 Est GFR (Non-Af Amer) > 60 Random Glucose 126 H Hemoglobin A1c 5.8 Calcium 9.2 Total Bilirubin 0.8 AST 33 ALT 24 Alkaline Phosphatase 85 Total Protein 7.7 Albumin 3.7 Globulin 4.0 H Albumin/Globulin Ratio 0.9 L Assessment & Plan - Assessment and Plan (Free Text) Assessment: Palliative consult There is no Advance directive on chart, PPS 50% I reviewed medical records, all diagnostic studies, examined and interviwed patient in the bed. Patient is alert, oriented X 3, in no acute distress with affect that is appropriate. Skin is dry and intact, S/P right mastectomy. decreassed breath sounds, no adventious sounds, denies cough/ SOB. Abdomen softly distended, very hypoactive bowel sounds, reports last BM on Wednesday. Patient reports decreased PO intake" I am afraid the food will get stuck in my lungs". Patient believes that decreased PO intake are causing her constipation. Denies abdominal pain, denies burning upon urination. Colace 100 mg TID on board. Right arm swollen, limited ROM. patient repositions right arm with her left hand. Radial pulses present. Patient reports occasional severe pain relieved by the Ultram. Pain affects her ability to sleep well. BP 120/68, HR 99, afebrile. WBC 9.8, Hb 11.0. Rocephin IV on for UTI. Arimidex PO continued as per Doctor Arthur. Goals of care discussed. Patient aware of her cancer diagnosis and is looking forward the lung Bx as suggested by Doctor de jesus. She wishes to be comfortable enough to participate in ADLs and to return home. Code status discussed. POLST introduced. Patient was not ready to decide just yet, wanted to talk to her family. I supported her. Impression * Chronically ill lady due to breast cancer with acute right arm pain * Cancer related pain * Constipation; patient has misunderstanding of * UTI * Limited mobility due to pain * Interrupted sleeping pattern due to pain * Undecided on Code status Plan * Hormonal Tx as per Doctor Arthur * Continue Ultram 50 mg Q 6 hr, reinforce teaching on meds availability. Report uncontrolled pain * Would consider the arm sling foe improved comfort to right arm * Would add 2 Senokot tablets, Q hs, promote mobility * Medicate for pain and reinforce ambulation * Full Code at present, will revisit Code status discussion.
--- NOTE | 2017-05-27 11:45 | CARD ---
APPROVED REPORT EXAM: Two-dimensional and M-mode echocardiogram with Doppler and color Doppler. Other Information Quality : GoodRhythm : INDICATION Dyspnea Peripheral Edema CA OF BREAST RISK FACTORS Obesity 2D DIMENSIONS IVSd1.2 (0.7-1.1cm)LVDd5.0 (3.9-5.9cm) PWd1.1 (0.7-1.1cm)LVDs2.9 (2.5-4.0cm) FS (%) 42.6 %LVEF (%)73.5 (>50%) M-Mode DIMENSIONS Left Atrium (MM)3.14 (2.5-4.0cm)Aortic Root3.06 (2.2-3.7cm) Aortic Cusp Exc.2.18 (1.5-2.0cm) Aortic Valve AI P 1/2 [id number] Mitral Valve MV E Zsxerzzp439.6cm/sMV A Eyqtxxfp806.1cm/sE/A ratio1.0 TDI E/Lateral E'0.0E/Medial E'0.0 Tricuspid Valve TR Peak [id number]/sTR Peak Gr.[id number] LEFT VENTRICLE The left ventricle is normal size. There is normal left ventricular wall thickness. The left ventricular function is normal. The left ventricular ejection fraction is within the normal range. No regional wall motion abnormalities noted. The left ventricular diastolic function is normal. No left ventricle thrombus noted on this study. There is no ventricular septal defect visualized. There is no left ventricular aneurysm. There is no mass noted in the left ventricle. RIGHT VENTRICLE The right ventricle is normal size. There is normal right ventricular wall thickness. The right ventricular systolic function is normal. ATRIA The left atrium size is normal. The right atrium size is normal. The interatrial septum is intact with no evidence for an atrial septal defect. AORTIC VALVE The aortic valve is normal in structure and function. There is mild aortic regurgitation. There is no aortic valvular stenosis. There is no aortic valvular vegetation. MITRAL VALVE The mitral valve is normal in structure and function. There is no evidence of mitral valve prolapse. There is no mitral valve stenosis. There is no mitral valve regurgitation noted. TRICUSPID VALVE The tricuspid valve is normal in structure and function. There is moderate tricuspid regurgitation. Right ventricular systolic pressure is estimated at 50-60 mmHg. There is no tricuspid valve prolapse or vegetation. There is no tricuspid valve stenosis. PULMONIC VALVE The pulmonary valve is normal in structure and function. There is no pulmonic valvular regurgitation. There is no pulmonic valvular stenosis. GREAT VESSELS The aortic root is normal in size. The ascending aorta is normal in size. The pulmonary artery is normal. The IVC is normal in size and collapses >50% with inspiration. PERICARDIAL EFFUSION The pericardium appears normal. There is no pleural effusion. <Conclusion> The left ventricular function is normal. The left ventricular ejection fraction is within the normal range. No regional wall motion abnormalities noted. There is mild aortic regurgitation. There is moderate tricuspid regurgitation. Right ventricular systolic pressure is estimated at 50-60 mmHg.
--- NOTE | 2017-05-27 13:21 | CP.PCM.PN ---
Subjective - Date & Time of Evaluation Date of Evaluation: 05/27/17 Time of Evaluation: 13:21 - Subjective Subjective: PGY2 Medicine note for Dr. Nate Luong; all management as per Dr. Nate luong This patient was seen and examined at bedside today without attending physician ; patient states she is feeling better. i made the recommendation that she have a goals of care conversation with palliative care nurse Lottie which she was receptive to, given that she has stage 3 cancer and is of good state of mind at this point in time; she was receptive and agreed to it; she denies any symptoms today and states she is feeling better other than some mild constipation. Objective - Vital Signs/Intake and Output Vital Signs (last 24 hours): Temp Pulse Resp BP Pulse Ox 97.8 F 72 20 120/68 97 05/26/17 23:30 05/27/17 07:20 05/26/17 23:30 05/26/17 23:30 05/26/17 23:30 - Medications Medications: Current Medications Albuterol/Ipratropium (Duoneb 3 Mg/0.5 Mg (3 Ml) Ud) 3 ml INH RQ6 [facility] Last Admin: 05/27/17 07:20 Dose: 3 ml Anastrozole (Arimidex 1 Mg Tab) 1 mg PO DAILY [facility] Last Admin: 05/27/17 10:22 Dose: 1 mg Azithromycin (Zithromax) 500 mg PO DAILY [facility] Last Admin: 05/27/17 10:28 Dose: 500 mg Docusate Sodium (Colace) 100 mg PO TID [facility] Last Admin: 05/27/17 10:19 Dose: 100 mg Enoxaparin Sodium (Lovenox) 40 mg SC DAILY [facility] Last Admin: 05/27/17 10:19 Dose: 40 mg Gabapentin (Neurontin) 400 mg PO TID [facility] Last Admin: 05/27/17 10:19 Dose: 400 mg Hydrochlorothiazide (Hydrodiuril) 25 mg PO DAILY [facility] Last Admin: 05/27/17 10:19 Dose: 25 mg Ceftriaxone Sodium 1 gm/ (Sodium Chloride) 100 mls @ 100 mls/hr IVPB DAILY [facility] Last Admin: 05/27/17 10:28 Dose: 100 mls/hr Lisinopril (Zestril) 20 mg PO DAILY [facility] Last Admin: 05/27/17 10:20 Dose: 20 mg Methylprednisolone (Solu-Medrol) 40 mg IVP Q8 [facility] Last Admin: 05/27/17 05:46 Dose: 40 mg Pantoprazole Sodium (Protonix Inj) 40 mg IVP DAILY [facility] Last Admin: 05/27/17 10:19 Dose: 40 mg Potassium Chloride (Klor-Con 10) 10 meq PO BRK [facility] Last Admin: 05/27/17 08:49 Dose: 10 meq Tramadol HCl (Ultram) 50 mg PO Q6H PRN PRN Reason: Pain, severe (8-10) Last Admin: 05/26/17 23:47 Dose: 50 mg - Labs Labs: 05/27/17 07:55 05/27/17 07:55 PT 12.5 SECONDS (9.7-12.2) H 05/22/17 08:48 INR 1.1 05/22/17 08:48 APTT 31 SECONDS (21-34) 05/22/17 08:48 - Head Exam Additional comments: Head Exam: ATRAUMATIC, NORMAL INSPECTION, NORMOCEPHALIC - Eye Exam Eye Exam: EOMI - ENT Exam ENT Exam: Mucous Membranes Moist - Respiratory Exam Respiratory Exam: NORMAL BREATHING PATTERN. absent: Respiratory Distress - Cardiovascular Exam Cardiovascular Exam: +S1, +S2 - GI/Abdominal Exam GI & Abdominal Exam: Soft, Normal Bowel Sounds. absent: Tenderness - Extremities Exam Extremities Exam: absent: Full ROM, Normal Inspection - Back Exam Back Exam: NORMAL INSPECTION - Neurological Exam Neurological Exam: Alert, Awake, Oriented x3 - Psychiatric Exam Psychiatric exam: Normal Affect, Normal Mood - Skin Skin Exam: Dry, Intact, Normal Color, Warm Assessment and Plan - Assessment and Plan (Free Text) Assessment: This is a 57 yo female admitted for PNA Metastatic breast cancer- stage III -heme onc. consult. recs appreciated. DR HERNANDES. -anastrazole 1 mg po daily -tramadol PRN for pain -goals of care discussed with Palliative Care Nurse Lottie; thank you so much for your recommendations; patient is full code at present but will talk to family for more definitive answer R upper ext swelling -vascular sx consult. DR. HANCOCK. recs appreciated. -us showed no DVT in upper or lower extremities -continue compression sleeve on right -elevate arm at night; recommend sling as well -no surgical intervention at this time. community acquired pneumonia -Pulm consult. recs appreciated. -allionebs -continue IV azithromycin daily -continue IV rocephin daily -ID consult. DR HERRERA. recs appreciated. -blood cultures negative so far -continue solumedrol 40 IV q 8 hrs. -BNP within normal limits -Bipap as needed. -urine strep pneumo -urine legionella negative Pulmonary nodule; most likely mets from breast CA -CXR notes pulmonary nodule 1.5 cm -continue to monitor -pulm consult as above; recommend biopsy hx of HTN -continue lisinopril daily -continue HCTZ daily hx of hypokalemia -continue supplementation with potassium chloride daily -will continue to monitor GI/DVT ppx -continue lovenox daily; patient will likely need as outpatient too because of high risk of DVT with Breast CA -continue protonix discussed with Dr. Nate Luong; all management as per Dr. Nate Luong
--- NOTE | 2017-05-27 13:52 | CP.PCM.PN ---
Subjective - Date & Time of Evaluation Date of Evaluation: 05/26/17 Time of Evaluation: 19:15 - Subjective Subjective: Has right axillary/shoulder pain Spoke with IR Dr. Balbuena; percutanous biopsy dangerous as most accessible lesion by the heart Objective - Vital Signs/Intake and Output Vital Signs (last 24 hours): Temp Pulse Resp BP Pulse Ox 97.7 F 63 20 108/69 99 05/27/17 07:23 05/27/17 07:23 05/27/17 07:23 05/27/17 07:23 05/27/17 07:23 - Medications Medications: Current Medications Albuterol/Ipratropium (Duoneb 3 Mg/0.5 Mg (3 Ml) Ud) 3 ml INH RQ6 [facility] Last Admin: 05/27/17 07:20 Dose: 3 ml Anastrozole (Arimidex 1 Mg Tab) 1 mg PO DAILY [facility] Last Admin: 05/27/17 10:22 Dose: 1 mg Azithromycin (Zithromax) 500 mg PO DAILY [facility] Last Admin: 05/27/17 10:28 Dose: 500 mg Enoxaparin Sodium (Lovenox) 40 mg SC DAILY [facility] Last Admin: 05/27/17 10:19 Dose: 40 mg Gabapentin (Neurontin) 400 mg PO TID [facility] Last Admin: 05/27/17 10:19 Dose: 400 mg Hydrochlorothiazide (Hydrodiuril) 25 mg PO DAILY [facility] Last Admin: 05/27/17 10:19 Dose: 25 mg Ceftriaxone Sodium 1 gm/ (Sodium Chloride) 100 mls @ 100 mls/hr IVPB DAILY [facility] Last Admin: 05/27/17 10:28 Dose: 100 mls/hr Lisinopril (Zestril) 20 mg PO DAILY [facility] Last Admin: 05/27/17 10:20 Dose: 20 mg Methylprednisolone (Solu-Medrol) 40 mg IVP Q8 [facility] Last Admin: 05/27/17 05:46 Dose: 40 mg Pantoprazole Sodium (Protonix Inj) 40 mg IVP DAILY [facility] Last Admin: 05/27/17 10:19 Dose: 40 mg Polyethylene Glycol (Miralax) 17 gm PO DAILY [facility] Potassium Chloride (Klor-Con 10) 10 meq PO BRK [facility] Last Admin: 05/27/17 08:49 Dose: 10 meq Senna/Docusate Sodium (Senokot S 50 Mg-8.6 Mg) 1 tab PO BID [facility] Tramadol HCl (Ultram) 50 mg PO Q6H PRN PRN Reason: Pain, severe (8-10) Last Admin: 05/26/17 23:47 Dose: 50 mg - Labs Labs: 05/27/17 07:55 05/27/17 07:55 PT 12.5 SECONDS (9.7-12.2) H 05/22/17 08:48 INR 1.1 05/22/17 08:48 APTT 31 SECONDS (21-34) 05/22/17 08:48 - Head Exam Head Exam: ATRAUMATIC - Eye Exam Eye Exam: Normal appearance - ENT Exam ENT Exam: Mucous Membranes Dry - Respiratory Exam Respiratory Exam: NORMAL BREATHING PATTERN - Cardiovascular Exam Cardiovascular Exam: +S1, +S2 - GI/Abdominal Exam GI & Abdominal Exam: Normal Bowel Sounds Assessment and Plan (1) Swelling of right upper extremity Assessment & Plan: No DVT ? lymphedema Status: Acute (2) Breast cancer Assessment & Plan: likely stage IV given lung and bone lesion not amenable for biopsy by IR outpatient biopsy and treatment. Status: Acute
--- NOTE | 2017-05-27 14:03 | CP.PCM.PN ---
Subjective - Date & Time of Evaluation Date of Evaluation: 05/27/17 Time of Evaluation: 14:00 - Subjective Subjective: Has right axillary pain Objective - Vital Signs/Intake and Output Vital Signs (last 24 hours): Temp Pulse Resp BP Pulse Ox 97.7 F 63 20 108/69 99 05/27/17 07:23 05/27/17 13:56 05/27/17 07:23 05/27/17 07:23 05/27/17 07:23 - Medications Medications: Current Medications Albuterol/Ipratropium (Duoneb 3 Mg/0.5 Mg (3 Ml) Ud) 3 ml INH RQ6 [facility] Last Admin: 05/27/17 13:59 Dose: 3 ml Anastrozole (Arimidex 1 Mg Tab) 1 mg PO DAILY [facility] Last Admin: 05/27/17 10:22 Dose: 1 mg Azithromycin (Zithromax) 500 mg PO DAILY [facility] Last Admin: 05/27/17 10:28 Dose: 500 mg Enoxaparin Sodium (Lovenox) 40 mg SC DAILY [facility] Last Admin: 05/27/17 10:19 Dose: 40 mg Gabapentin (Neurontin) 400 mg PO TID [facility] Last Admin: 05/27/17 10:19 Dose: 400 mg Hydrochlorothiazide (Hydrodiuril) 25 mg PO DAILY [facility] Last Admin: 05/27/17 10:19 Dose: 25 mg Ceftriaxone Sodium 1 gm/ (Sodium Chloride) 100 mls @ 100 mls/hr IVPB DAILY [facility] Last Admin: 05/27/17 10:28 Dose: 100 mls/hr Lisinopril (Zestril) 20 mg PO DAILY [facility] Last Admin: 05/27/17 10:20 Dose: 20 mg Methylprednisolone (Solu-Medrol) 40 mg IVP Q8 [facility] Last Admin: 05/27/17 05:46 Dose: 40 mg Pantoprazole Sodium (Protonix Inj) 40 mg IVP DAILY [facility] Last Admin: 05/27/17 10:19 Dose: 40 mg Polyethylene Glycol (Miralax) 17 gm PO DAILY [facility] Potassium Chloride (Klor-Con 10) 10 meq PO BRK [facility] Last Admin: 05/27/17 08:49 Dose: 10 meq Senna/Docusate Sodium (Senokot S 50 Mg-8.6 Mg) 1 tab PO BID [facility] Tramadol HCl (Ultram) 50 mg PO Q6H PRN PRN Reason: Pain, severe (8-10) Last Admin: 05/26/17 23:47 Dose: 50 mg - Labs Labs: 05/27/17 07:55 05/27/17 07:55 PT 12.5 SECONDS (9.7-12.2) H 05/22/17 08:48 INR 1.1 05/22/17 08:48 APTT 31 SECONDS (21-34) 05/22/17 08:48 - Head Exam Head Exam: ATRAUMATIC - Eye Exam Eye Exam: Normal appearance - ENT Exam ENT Exam: Mucous Membranes Dry - Respiratory Exam Respiratory Exam: NORMAL BREATHING PATTERN - Cardiovascular Exam Cardiovascular Exam: +S1, +S2 - GI/Abdominal Exam GI & Abdominal Exam: Normal Bowel Sounds Assessment and Plan (1) Swelling of right upper extremity Assessment & Plan: ? lymphadenopathy no DVT Status: Acute (2) Breast cancer Assessment & Plan: likely stage IV bone and lung lesions outpatient PET CT Status: Acute
--- NOTE | 2017-05-27 16:58 | CP.PCM.PN ---
Subjective - Date & Time of Evaluation Date of Evaluation: 05/27/17 Time of Evaluation: 13:00 - Subjective Subjective: pt clinically same consultants following Objective - Vital Signs/Intake and Output Vital Signs (last 24 hours): Temp Pulse Resp BP Pulse Ox 97.9 F 61 20 105/62 97 05/27/17 15:00 05/27/17 15:00 05/27/17 15:00 05/27/17 15:00 05/27/17 15:00 - Medications Medications: Current Medications Albuterol/Ipratropium (Duoneb 3 Mg/0.5 Mg (3 Ml) Ud) 3 ml INH RQ6 [facility] Last Admin: 05/27/17 13:59 Dose: 3 ml Anastrozole (Arimidex 1 Mg Tab) 1 mg PO DAILY [facility] Last Admin: 05/27/17 10:22 Dose: 1 mg Azithromycin (Zithromax) 500 mg PO DAILY [facility] Last Admin: 05/27/17 10:28 Dose: 500 mg Enoxaparin Sodium (Lovenox) 40 mg SC DAILY [facility] Last Admin: 05/27/17 10:19 Dose: 40 mg Gabapentin (Neurontin) 400 mg PO TID [facility] Last Admin: 05/27/17 14:44 Dose: 400 mg Hydrochlorothiazide (Hydrodiuril) 25 mg PO DAILY [facility] Last Admin: 05/27/17 10:19 Dose: 25 mg Lisinopril (Zestril) 20 mg PO DAILY [facility] Last Admin: 05/27/17 10:20 Dose: 20 mg Methylprednisolone (Solu-Medrol) 40 mg IVP Q8 [facility] Last Admin: 05/27/17 14:45 Dose: 40 mg Pantoprazole Sodium (Protonix Inj) 40 mg IVP DAILY [facility] Last Admin: 05/27/17 10:19 Dose: 40 mg Polyethylene Glycol (Miralax) 17 gm PO DAILY [facility] Potassium Chloride (Klor-Con 10) 10 meq PO BRK [facility] Last Admin: 05/27/17 08:49 Dose: 10 meq Senna/Docusate Sodium (Senokot S 50 Mg-8.6 Mg) 1 tab PO BID [facility] Tramadol HCl (Ultram) 50 mg PO Q6H PRN PRN Reason: Pain, severe (8-10) Last Admin: 05/26/17 23:47 Dose: 50 mg - Labs Labs: 05/27/17 07:55 05/27/17 07:55 PT 12.5 SECONDS (9.7-12.2) H 05/22/17 08:48 INR 1.1 05/22/17 08:48 APTT 31 SECONDS (21-34) 05/22/17 08:48 - Constitutional Appears: No Acute Distress - Head Exam Head Exam: ATRAUMATIC, NORMAL INSPECTION, NORMOCEPHALIC - Eye Exam Eye Exam: EOMI, Normal appearance, PERRL Pupil Exam: NORMAL ACCOMODATION, PERRL - ENT Exam ENT Exam: Mucous Membranes Moist - Neck Exam Neck Exam: Full ROM - Respiratory Exam Respiratory Exam: Decreased Breath Sounds - Cardiovascular Exam Cardiovascular Exam: REGULAR RHYTHM, +S1, +S2 - GI/Abdominal Exam GI & Abdominal Exam: Soft, Diminished Bowel Sounds - Rectal Exam Rectal Exam: Deferred - Neurological Exam Additional comments: [employer]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
[2017-05-27] MEDS: Docusate-Senna 50 mg-8.6 mg Tab PO SCH (18:24)
--- NOTE | 2017-05-27 18:40 | CP.PCM.PN ---
Subjective - Date & Time of Evaluation Date of Evaluation: 05/27/17 Time of Evaluation: 07:00 - Subjective Subjective: less pain no fever Objective - Vital Signs/Intake and Output Vital Signs (last 24 hours): Temp Pulse Resp BP Pulse Ox 97.9 F 61 20 105/62 97 05/27/17 15:00 05/27/17 15:00 05/27/17 15:00 05/27/17 15:00 05/27/17 15:00 - Medications Medications: Current Medications Albuterol/Ipratropium (Duoneb 3 Mg/0.5 Mg (3 Ml) Ud) 3 ml INH RQ6 [facility] Last Admin: 05/27/17 13:59 Dose: 3 ml Anastrozole (Arimidex 1 Mg Tab) 1 mg PO DAILY [facility] Last Admin: 05/27/17 10:22 Dose: 1 mg Azithromycin (Zithromax) 500 mg PO DAILY [facility] Last Admin: 05/27/17 10:28 Dose: 500 mg Enoxaparin Sodium (Lovenox) 40 mg SC DAILY [facility] Last Admin: 05/27/17 10:19 Dose: 40 mg Gabapentin (Neurontin) 400 mg PO TID [facility] Last Admin: 05/27/17 18:20 Dose: 400 mg Hydrochlorothiazide (Hydrodiuril) 25 mg PO DAILY [facility] Last Admin: 05/27/17 10:19 Dose: 25 mg Lisinopril (Zestril) 20 mg PO DAILY [facility] Last Admin: 05/27/17 10:20 Dose: 20 mg Methylprednisolone (Solu-Medrol) 40 mg IVP Q8 [facility] Last Admin: 05/27/17 14:45 Dose: 40 mg Pantoprazole Sodium (Protonix Inj) 40 mg IVP DAILY [facility] Last Admin: 05/27/17 10:19 Dose: 40 mg Polyethylene Glycol (Miralax) 17 gm PO DAILY [facility] Potassium Chloride (Klor-Con 10) 10 meq PO BRK [facility] Last Admin: 05/27/17 08:49 Dose: 10 meq Senna/Docusate Sodium (Senokot S 50 Mg-8.6 Mg) 1 tab PO BID [facility] Last Admin: 05/27/17 18:24 Dose: Not Given Tramadol HCl (Ultram) 50 mg PO Q6H PRN PRN Reason: Pain, severe (8-10) Last Admin: 05/26/17 23:47 Dose: 50 mg - Labs Labs: 05/27/17 07:55 05/27/17 07:55 PT 12.5 SECONDS (9.7-12.2) H 05/22/17 08:48 INR 1.1 05/22/17 08:48 APTT 31 SECONDS (21-34) 05/22/17 08:48 - Eye Exam Eye Exam: PERRL - ENT Exam ENT Exam: Mucous Membranes Dry - Neck Exam Neck Exam: absent: Lymphadenopathy - Respiratory Exam Respiratory Exam: Decreased Breath Sounds - Cardiovascular Exam Cardiovascular Exam: REGULAR RHYTHM, +S1, +S2 - GI/Abdominal Exam GI & Abdominal Exam: Distended, Soft - Exam Exam: NORMAL INSPECTION - Extremities Exam Extremities Exam: absent: Pedal Edema - Back Exam Back Exam: absent: CVA tenderness (L), CVA tenderness (R) Assessment and Plan (1) Pneumonia Status: Acute (2) Breast cancer in female Status: Acute (3) Edema of both legs Status: Acute (4) Swelling of right upper extremity Status: Acute (5) Bronchitis Status: Acute (6) Leukopenia Status: Acute
--- NOTE | 2017-05-27 18:42 | CP.PCM.PN ---
Subjective - Date & Time of Evaluation Date of Evaluation: 05/27/17 Time of Evaluation: 11:00 - Subjective Subjective: Patient was seen and evaluated. Patient was able to tolerate walking with cane in the hallway yesterday, but did feel short of breath. Patient was off BiPAP this morning and reports improved breathing. She complains of severe right arm and shoulder pain and mild left shoulder pain. She has no new complaints. Assessment and Plan: Patient is a 57 y.o F with PMH of right-sided breast cancer s/p neoadjuvant chemotherapy, mastectomy and axillary LN dissection, radiation, on hormonal therapy who presented with RUE swelling and SOB most likely due to malignancy or PNA. -Follow up IR eval for percutaneous biopsy- mets to lung and bone? Possibly as outpatient? -Chest CT on 05/22 showed multiple bilateral pulmonary nodules right greater than left consistent with metastatic disease: mediastinal and right hilar adenopathy also suspicious for metastatic disease; minimal patchy airspace disease in the right apex; mild cardiomegaly, no aortic aneurysm, dissection or pulmonary embolus -Abd/pelvis CT on 05/22 showed right lower lobe pulmonary nodule suspicious for metastatic disease; sclerotic lesions in L3 and in the sacrum metastatic disease cannot be excluded -LE Duplex- no evidence of deep or superficial vein thrombosis b/l, valvular incompetence noted of the right popliteal and peroneal veins -Duplex negative for UE DVT; no surgical intervention -Continue IV abx -Nebulizer treatments -BiPAP as needed -Solu-medrol -Blood culture negative x2 after 5 days --Urine culture- gram positive cocci -Heme/onc following for hx of breast cancer -ECHO on 05/25- report pending -Palliative care following Objective - Vital Signs/Intake and Output Vital Signs (last 24 hours): Temp Pulse Resp BP Pulse Ox 97.9 F 61 20 105/62 97 05/27/17 15:00 05/27/17 15:00 05/27/17 15:00 05/27/17 15:00 05/27/17 15:00 - Medications Medications: Current Medications Albuterol/Ipratropium (Duoneb 3 Mg/0.5 Mg (3 Ml) Ud) 3 ml INH RQ6 [facility] Last Admin: 05/27/17 13:59 Dose: 3 ml Anastrozole (Arimidex 1 Mg Tab) 1 mg PO DAILY [facility] Last Admin: 05/27/17 10:22 Dose: 1 mg Azithromycin (Zithromax) 500 mg PO DAILY [facility] Last Admin: 05/27/17 10:28 Dose: 500 mg Enoxaparin Sodium (Lovenox) 40 mg SC DAILY [facility] Last Admin: 05/27/17 10:19 Dose: 40 mg Gabapentin (Neurontin) 400 mg PO TID [facility] Last Admin: 05/27/17 18:20 Dose: 400 mg Hydrochlorothiazide (Hydrodiuril) 25 mg PO DAILY [facility] Last Admin: 05/27/17 10:19 Dose: 25 mg Lisinopril (Zestril) 20 mg PO DAILY [facility] Last Admin: 05/27/17 10:20 Dose: 20 mg Methylprednisolone (Solu-Medrol) 40 mg IVP Q8 [facility] Last Admin: 05/27/17 14:45 Dose: 40 mg Pantoprazole Sodium (Protonix Inj) 40 mg IVP DAILY [facility] Last Admin: 05/27/17 10:19 Dose: 40 mg Polyethylene Glycol (Miralax) 17 gm PO DAILY [facility] Potassium Chloride (Klor-Con 10) 10 meq PO BRK [facility] Last Admin: 05/27/17 08:49 Dose: 10 meq Senna/Docusate Sodium (Senokot S 50 Mg-8.6 Mg) 1 tab PO BID [facility] Last Admin: 05/27/17 18:24 Dose: Not Given Tramadol HCl (Ultram) 50 mg PO Q6H PRN PRN Reason: Pain, severe (8-10) Last Admin: 05/26/17 23:47 Dose: 50 mg - Labs Labs: 05/27/17 07:55 05/27/17 07:55 PT 12.5 SECONDS (9.7-12.2) H 05/22/17 08:48 INR 1.1 05/22/17 08:48 APTT 31 SECONDS (21-34) 05/22/17 08:48
[2017-05-28] MEDS: MethylPREDNISolone 40 mg Vial IVP SCH ×2 (05:44→13:47)
[2017-05-28 08:21] LABS: BASO % 0.1 % (0.0-2.0); HEMOGLOBIN 11.2 g/dL (11.0-16.0); LYMPH # 0.8 K/uL (1.0-4.3); LYMPH % 9.8 % (20.0-40.0); MEAN CELL VOLUME 74.5 fL (81.0-99.0); MEAN CORPUSCULAR HEMOGLOBIN 24.3 pg (27.0-31.0); MEAN CORPUSCULAR HGB CONC 32.6 g/dL (33.0-37.0); MEAN PLATELET VOLUME 7.6 fL (7.2-11.7); MONO # 0.3 K/uL (0.0-0.8); MONO % 4.1 % (0.0-10.0); NEUT # 6.8 K/uL (1.8-7.0); NRBC % 0.1 % (0.0-2.0); PLATELET COUNT 353 K/uL (130-400); RBC 4.61 Mil/uL (3.80-5.20); RED CELL DISTRIBUTION WIDTH 14.9 % (11.5-14.5); WHITE BLOOD COUNT 7.9 K/uL (4.8-10.8)
[2017-05-28] MEDS: Potassium Chloride 10 mEq ER Tab PO SCH (08:23)
[2017-05-28 08:38] LABS: ALB/GLOB RATIO 1.1 (1.0-2.1); ALBUMIN 3.8 g/dL (3.5-5.0); ALT/SGPT 32 U/L (9-52); AST/SGOT 21 U/L (14-36); BLOOD UREA NITROGEN 22 mg/dL (7-17); CALCIUM 9.6 mg/dl (8.6-10.4); GFR AFRICAN-AMERICAN > 60; GFR NON-AFRICAN AMERICAN > 60
[2017-05-28] MEDS ORDERED: POLYETHYLENE GLYCOL 3350 17 GM/Dose PACKET PO SCH (10:00)
--- NOTE | 2017-05-28 10:05 | CP.PCM.PN ---
Subjective - Date & Time of Evaluation Date of Evaluation: 05/28/17 Time of Evaluation: 07:10 - Subjective Subjective: PGY2 Medicine note for Dr. Nate Luong; all management as per Dr. Nate luong This patient was seen and examined at bedside today; She reports she is eating well and passing normal BMs. The swelling of her R arm has decreased significantly. He reports her SOB is improving. Denies any additional acute complaints. ---- Patient is stable for discharge home per Dr. Nate Luong. Patient should resume all medications as outlined in this document. Additionally, patient should take the new medications listed below (scripts provided). 1. Please make an appointment and follow up with your Primary Doctor within one week of discharge. 2. Please wear an Upper arm compression sleeve for your symptoms of upper arm swelling. Ultrasounds of your arms and legs did not show any clots or blockages. 3. On CAT scan, lesions of the bone and lungs were found, likely due to metastatic breast cancer. We recommend you have an outpatient PET CT performed; your PMD can direct you further. 4. On CXR a pulmonary nodule of 1.5 cm was seen. Please follow up with your PMD / Evaluation Advisor for further evaluation. 5. Please speak to your PMD about continuing Lovenox as an outpatient because you will be at a higher risk for DVT due to your history of breast cancer. Patient should return to ED immediately if symptoms return or worsen. Instructions discussed with patient who understood and agreed. Newly prescribed medications (sent electronically to [facility] [place], [place] [phone]) -Zithromax 500mg PO qD x9d for pneumonia -Prednisone 5mg PO qD x6d following taper instructions Take 4 pills daily (days 1-2) Take 2 pills daily (days 3-4) Take 1 pill daily (days 5-6) Objective - Vital Signs/Intake and Output Vital Signs (last 24 hours): Temp Pulse Resp BP Pulse Ox 97.8 F 60 20 138/79 96 05/28/17 08:53 05/28/17 08:53 05/28/17 08:53 05/28/17 08:53 05/28/17 08:53 - Medications Medications: Current Medications Anastrozole (Arimidex 1 Mg Tab) 1 mg PO DAILY [facility] Last Admin: 05/27/17 10:22 Dose: 1 mg Azithromycin (Zithromax) 500 mg PO DAILY [facility] Last Admin: 05/27/17 10:28 Dose: 500 mg Enoxaparin Sodium (Lovenox) 40 mg SC DAILY [facility] Last Admin: 05/27/17 10:19 Dose: 40 mg Gabapentin (Neurontin) 400 mg PO TID [facility] Last Admin: 05/27/17 18:20 Dose: 400 mg Hydrochlorothiazide (Hydrodiuril) 25 mg PO DAILY [facility] Last Admin: 05/27/17 10:19 Dose: 25 mg Lisinopril (Zestril) 20 mg PO DAILY [facility] Last Admin: 05/27/17 10:20 Dose: 20 mg Methylprednisolone (Solu-Medrol) 40 mg IVP Q8 [facility] Last Admin: 05/28/17 05:44 Dose: 40 mg Pantoprazole Sodium (Protonix Inj) 40 mg IVP DAILY [facility] Last Admin: 05/27/17 10:19 Dose: 40 mg Polyethylene Glycol (Miralax) 17 gm PO DAILY [facility] Potassium Chloride (Klor-Con 10) 10 meq PO BRK [facility] Last Admin: 05/28/17 08:23 Dose: 10 meq Senna/Docusate Sodium (Senokot S 50 Mg-8.6 Mg) 1 tab PO BID [facility] Last Admin: 05/27/17 18:24 Dose: Not Given Tramadol HCl (Ultram) 50 mg PO Q6H PRN PRN Reason: Pain, severe (8-10) Last Admin: 05/26/17 23:47 Dose: 50 mg - Labs Labs: 05/28/17 08:11 05/28/17 08:11 PT 12.5 SECONDS (9.7-12.2) H 05/22/17 08:48 INR 1.1 05/22/17 08:48 APTT 31 SECONDS (21-34) 05/22/17 08:48 - Additional Findings Additional findings: - Head Exam Additional comments: Head Exam: ATRAUMATIC, NORMAL INSPECTION, NORMOCEPHALIC - Eye Exam Eye Exam: EOMI - ENT Exam ENT Exam: Mucous Membranes Moist - Respiratory Exam Respiratory Exam: NORMAL BREATHING PATTERN. absent: Respiratory Distress - Cardiovascular Exam Cardiovascular Exam: +S1, +S2 - GI/Abdominal Exam GI & Abdominal Exam: Soft, Normal Bowel Sounds. absent: Tenderness - Extremities Exam Extremities Exam: absent: Full ROM, Normal Inspection - Back Exam Back Exam: NORMAL INSPECTION - Neurological Exam Neurological Exam: Alert, Awake, Oriented x3 - Psychiatric Exam Psychiatric exam: Normal Affect, Normal Mood - Skin Skin Exam: Dry, Intact, Normal Color, Warm Assessment and Plan - Assessment and Plan (Free Text) Assessment: This is a 57 yo female admitted for PNA Metastatic breast cancer- stage III -heme onc. consult. recs appreciated. DR HERNANDES. -anastrazole 1 mg po daily -tramadol PRN for pain -goals of care discussed with Palliative Care Nurse Lottie; thank you so much for your recommendations; patient is full code at present but will talk to family for more definitive answer -Abd/pelvis CT on 05/22 showed right lower lobe pulmonary nodule suspicious for metastatic disease; sclerotic lesions in L3 and in the sacrum metastatic disease cannot be excluded R upper ext swelling -vascular sx consult. DR. HANCOCK. recs appreciated. -us showed no DVT in upper or lower extremities -continue compression sleeve on right -elevate arm at night; recommend sling as well -no surgical intervention at this time. community acquired pneumonia -Pulm consult. recs appreciated. -duonebs -continue IV azithromycin daily -continue IV rocephin daily -ID consult. DR HERRERA. recs appreciated. -blood cultures negative so far -continue solumedrol 40 IV q 8 hrs. -BNP within normal limits -Bipap as needed. -urine strep pneumo -urine legionella negative Pulmonary nodule; most likely mets from breast CA -CXR notes pulmonary nodule 1.5 cm -continue to monitor -pulm consult as above; recommend biopsy hx of HTN -continue lisinopril daily -continue HCTZ daily hx of hypokalemia -continue supplementation with potassium chloride daily -will continue to monitor GI/DVT ppx -continue lovenox daily; patient will likely need as outpatient too because of high risk of DVT with Breast CA -continue protonix discussed with Dr. Nate Luong; all management as per Dr. Nate Luong
--- NOTE | 2017-05-28 10:31 | CP.PCM.PN ---
Subjective - Date & Time of Evaluation Date of Evaluation: 05/28/17 Time of Evaluation: 09:00 - Subjective Subjective: Patient seen and examined Complaining of slight cough and wheezing Afebrile No chest pain PET scan as outpatient Biopsy on hold Taper steroids Objective - Vital Signs/Intake and Output Vital Signs (last 24 hours): Temp Pulse Resp BP Pulse Ox 97.8 F 60 20 138/79 96 05/28/17 08:53 05/28/17 08:53 05/28/17 08:53 05/28/17 08:53 05/28/17 08:53 - Medications Medications: Current Medications Albuterol/Ipratropium (Duoneb 3 Mg/0.5 Mg (3 Ml) Ud) 3 ml INH RQ6 [facility] Anastrozole (Arimidex 1 Mg Tab) 1 mg PO DAILY [facility] Last Admin: 05/27/17 10:22 Dose: 1 mg Azithromycin (Zithromax) 500 mg PO DAILY [facility] Last Admin: 05/27/17 10:28 Dose: 500 mg Enoxaparin Sodium (Lovenox) 40 mg SC DAILY [facility] Last Admin: 05/27/17 10:19 Dose: 40 mg Gabapentin (Neurontin) 400 mg PO TID [facility] Last Admin: 05/27/17 18:20 Dose: 400 mg Hydrochlorothiazide (Hydrodiuril) 25 mg PO DAILY [facility] Last Admin: 05/27/17 10:19 Dose: 25 mg Lisinopril (Zestril) 20 mg PO DAILY [facility] Last Admin: 05/27/17 10:20 Dose: 20 mg Methylprednisolone (Solu-Medrol) 40 mg IVP Q8 [facility] Last Admin: 05/28/17 05:44 Dose: 40 mg Pantoprazole Sodium (Protonix Inj) 40 mg IVP DAILY [facility] Last Admin: 05/27/17 10:19 Dose: 40 mg Polyethylene Glycol (Miralax) 17 gm PO DAILY [facility] Potassium Chloride (Klor-Con 10) 10 meq PO BRK [facility] Last Admin: 05/28/17 08:23 Dose: 10 meq Senna/Docusate Sodium (Senokot S 50 Mg-8.6 Mg) 1 tab PO BID [facility] Last Admin: 05/27/17 18:24 Dose: Not Given Tramadol HCl (Ultram) 50 mg PO Q6H PRN PRN Reason: Pain, severe (8-10) Last Admin: 05/26/17 23:47 Dose: 50 mg - Labs Labs: 05/28/17 08:11 05/28/17 08:11 PT 12.5 SECONDS (9.7-12.2) H 05/22/17 08:48 INR 1.1 05/22/17 08:48 APTT 31 SECONDS (21-34) 05/22/17 08:48
[2017-05-28 10:35] LABS: LYMPHOCYTE 6 % (20-40); MONOCYTE 5 % (0-10); NEUTROPHIL 89 % (50-75); TOTAL CELLS COUNTED 100
[2017-05-28 10:36] LABS: HYPOCHROMIC SLIGHT; PLATELET ESTIMATE NORMAL (NORMAL)
[2017-05-28] MEDS: Enoxaparin 40 mg Syringe SC SCH (10:53)
[2017-05-28] MEDS: Docusate-Senna 50 mg-8.6 mg Tab PO SCH (10:54)
[2017-05-28] MEDS: Albuterol-Ipratrop 3 mg / 0.5 (3 ml) UD INH SCH ×2 (11:43→13:40)
[2017-05-28] MEDS ORDERED: Influenza Vaccine 60 mcg/0.5 mL SYR (4YR UP) IM ONE (15:33)
[2017-05-28 16:21] VITALS: BP 100/64; PULSE 68; TEMP 97.9; O2SAT 98
--- NOTE | 2017-05-28 22:29 | CP.PCM.PN ---
Subjective - Date & Time of Evaluation Date of Evaluation: 05/28/17 Time of Evaluation: 12:40 - Subjective Subjective: Feeling better Objective - Vital Signs/Intake and Output Vital Signs (last 24 hours): Temp Pulse Resp BP Pulse Ox 97.9 F 68 20 100/64 98 05/28/17 16:21 05/28/17 16:21 05/28/17 16:21 05/28/17 16:21 05/28/17 16:21 - Labs Labs: 05/28/17 08:11 05/28/17 08:11 PT 12.5 SECONDS (9.7-12.2) H 05/22/17 08:48 INR 1.1 05/22/17 08:48 APTT 31 SECONDS (21-34) 05/22/17 08:48 - Head Exam Head Exam: ATRAUMATIC - Eye Exam Eye Exam: Normal appearance - ENT Exam ENT Exam: Mucous Membranes Dry - Respiratory Exam Respiratory Exam: NORMAL BREATHING PATTERN - Cardiovascular Exam Cardiovascular Exam: +S1, +S2 - GI/Abdominal Exam GI & Abdominal Exam: Normal Bowel Sounds Assessment and Plan (1) Swelling of right upper extremity Assessment & Plan: ? lymphedema US negative for DVT Status: Acute (2) Breast cancer Assessment & Plan: imaging suggestive of lung and bone mets not ammenable to percutaneous biopsy outpatient PET CT scan Status: Acute
== END 2017-05-28 18:08 | disposition home health service (06) | DRG 541 ==
LOC: C.ER 07:53 → C.9E 11:34 → C.3T 16:59 → C.5S 05-23 01:23
PROVIDERS: ADMIT Internal Medicine Nephrology; ATTEND Internal Medicine Nephrology
DX: C78.02 Secondary malignant neoplasm of left lung (principal); J18.9 Pneumonia, unspecified organism; C79.51 Secondary malignant neoplasm of bone; E66.01 Morbid (severe) obesity due to excess calories; E87.6 Hypokalemia; D72.819 Decreased white blood cell count, unspecified; G89.3 Neoplasm related pain (acute) (chronic); B35.1 Tinea unguium; N39.0 Urinary tract infection, site not specified; C78.01 Secondary malignant neoplasm of right lung; J40 Bronchitis, not specified as acute or chronic; M79.621 Pain in right upper arm; I10 Essential (primary) hypertension; K59.00 Constipation, unspecified; R07.9 Chest pain, unspecified; Z17.0 Estrogen receptor positive status [ER+]; Z51.5 Encounter for palliative care; Z85.3 Personal history of malignant neoplasm of breast; Z87.01 Personal history of pneumonia (recurrent); Z92.21 Personal history of antineoplastic chemotherapy; Z92.3 Personal history of irradiation

== ENCOUNTER 2017-05-31 10:15 | Emergency (ER) | payer OTHER ==
[2017-05-31 10:15] VITALS: BMI 50.1
[2017-05-31 10:29] VITALS: TEMP 97.8
--- NOTE | 2017-05-31 11:04 | C.PDOC ---
History Of Present Illness 57 year old female presents to the ER with new-onset left sided chest wall/ upper abdominal pain, ongoing since yesterday. Was discharged on 05/28 s/p pneumonia, for which she is taking azithromycin and prednisone. Initially had abdominal pain while having a bowel movement, which was localized to the left side and intermittent. Pain has worsened and is now constant. Denies chronic pain medication use. Time Seen by Provider: 05/31/17 11:05 Chief Complaint (Nursing): Back Pain History Per: Patient History/Exam Limitations: no limitations Onset/Duration Of Symptoms: Days (x2) Current Symptoms Are (Timing): Still Present Severity: Moderate Past Medical History Reviewed: Historical Data, Nursing Documentation, Vital Signs Vital Signs: Last Vital Signs Temp 97.8 F 05/31/17 10:26 Pulse 63 05/31/17 12:03 Resp 20 05/31/17 12:03 BP 111/55 L 05/31/17 12:03 Pulse Ox 98 05/31/17 12:03 - Medical History PMH: Asthma (CHILDHOOD NO MEDS), Fractures (TOE/ARM NO SURGERY), HTN, Malignancy (BREAST CANCER on chemotherapy), Pneumonia (Childhood) Denies: Atrial Fibrillation, Bronchitis, Cardia Arrhythmia, CHF, COPD, Emphysema, Hypercholesterolemia, Mitral Valve Prolapse, Peripheral Edema, Pulmonary Embolism, Chronic Kidney Disease, Sleep Apnea Surgical History: Denies: Pacemaker - [facility] Procedures CONTRAST PHLEBOGRAM NEC (04/10/14) DX ULTRASOUND-THORAX NEC (11/09/13) ENDO RECTUM POLYPECTOMY (11/30/12) INSERTION OF TOTALLY IMPLANTABLE VASC ACCESS DEVIC (11/09/13) LOCAL EXCIS BREAST LES (08/17/13) LYMPHATIC STRUCT BIOPSY (08/17/13) THORAX SFT TISS XRAY NEC (11/09/13) UNILAT EXTEN SIMP MASTEC (07/05/14) UNILAT REDUCT MAMMOPLAST (07/05/14) Family History: States: Unknown Family Hx - Social History Hx Tobacco Use: No Hx Alcohol Use: No Hx Substance Use: No - Immunization History Hx Tetanus Toxoid Vaccination: No Hx Influenza Vaccination: No Hx Pneumococcal Vaccination: No Review Of Systems Except As Marked, All Systems Reviewed And Found Negative. Constitutional: Negative for: Fever Cardiovascular: Positive for: Chest Pain (left sided chest wall) Respiratory: Negative for: Shortness of Breath Gastrointestinal: Positive for: Abdominal Pain (left upper) Neurological: Negative for: Headache, Dizziness Physical Exam - Physical Exam Appears: Non-toxic, In Acute Distress (moderate distress) Skin: Normal Color, Warm Head: Atraumatic, Normacephalic Eye(s): bilateral: Normal Inspection Chest: Symmetrical, Tenderness (Reproducible pain w/ movement and deep breathing ) Cardiovascular: Rhythm Regular Respiratory: Normal Breath Sounds (lungs clear bilaterally), No Rales, No Rhonchi, No Wheezing, No Other (crepitus) Gastrointestinal/Abdominal: Normal Exam, Soft, No Tenderness, No Guarding, No Rebound Extremity: Bilateral: Atraumatic, Normal Color And Temperature Neurological/Psych: Oriented x3, Normal Speech, No Other (focal weakness or deficits) ED Course And Treatment - Laboratory Results Result Diagrams: 05/31/17 11:27 05/31/17 11:27 O2 Sat by Pulse Oximetry: 97 (RA) Pulse Ox Interpretation: Normal Progress - Re-Evaluation Re-evaluation Note: 05/31/17 11:25 D/W DR LEZAMA AWARE OF ER FINDINGS. DOES NOT RECOMMEND CTA DUE TO RECENT CT ANGIO TESTING. ADVISES CONSULT DR aSndra HERNANDES 05/31/17 11:42 D/W DR Sandra HERNANDES AWARE OF ER FINDINGS, DOES NOT OFFER ADDITIONAL INSIGHT TO PT MANAGEMENT 05/31/17 13:17 FEELS BETTER. NO ACUTE FINDINGS. PENDING PET SCAN. PT AGREES W DC HOME. DC PAIN RX, FU PMD AND HEME/ONC - Data Reviewed Data Reviewed: Lab, Diagnostic imaging, EKG, Old records - Continuity of Care Discussed patient case with:: Patient, Family-HIPPA compliant Discussed pt. case with databases software consultant/specialty: Oncology, Pulmonary/Crit. Care Medical Decision Making Medical Decision Making: Records reviewed: 05/[address] shows multiple (R > L) metastatic disease with adenopathy Right upper arm duplex: negative Initial Plan: * Labs * X-Ray left ribs & chest * Morphine 4 mg IV Disposition Counseled Patient/Family Regarding: Studies Performed, Diagnosis, Need For Followup, Rx Given - Disposition Referrals: YOUR,PMD [Other] Disposition: HOME/ ROUTINE Disposition Time: 13:17 Condition: IMPROVED Prescriptions: Metoclopramide [Reglan] 1 tab PO TID PRN #25 tab PRN Reason: Nausea/Vomiting oxyCODONE/Acetaminophen [Percocet 5/325 mg Tab] 1 tab PO QID PRN #14 tab PRN Reason: Pain, Moderate (4-7) Instructions: Chest Pain That Is Not Caused by the Heart (DC), Opioids for Short-Term Treatment of Pain Forms: [employer] ([employer]) - Clinical Impression Clinical Impression: Chest wall pain, Metastatic cancer - Scribe Statement The provider has reviewed the documentation as recorded by the Cayla Trevizo Provider Attestation: All medical record entries made by the Cayla were at my direction and personally dictated by me. I have reviewed the chart and agree that the record accurately reflects my personal performance of the history, physical exam, medical decision making, and the department course for this patient. I have also personally directed, reviewed, and agree with the discharge instructions and disposition.
[2017-05-31 11:33] LABS: BASO # 0.1 K/uL (0.0-0.2); BASO % 0.5 % (0.0-2.0); EOS # 0.1 K/uL (0.0-0.7); EOS % 1.3 % (0.0-4.0); HEMOGLOBIN 12.2 g/dL (11.0-16.0); LYMPH # 2.6 K/uL (1.0-4.3); LYMPH % 23.2 % (20.0-40.0); MEAN CELL VOLUME 74.8 fL (81.0-99.0); MEAN CORPUSCULAR HEMOGLOBIN 24.4 pg (27.0-31.0); MEAN CORPUSCULAR HGB CONC 32.6 g/dL (33.0-37.0); MEAN PLATELET VOLUME 7.2 fL (7.2-11.7); MONO # 0.5 K/uL (0.0-0.8); MONO % 4.3 % (0.0-10.0); NEUT # 7.9 K/uL (1.8-7.0); NEUT % 70.7 % (50.0-75.0); NRBC % 0.1 % (0.0-2.0); RBC 5.02 Mil/uL (3.80-5.20); RED CELL DISTRIBUTION WIDTH 14.8 % (11.5-14.5); WHITE BLOOD COUNT 11.2 K/uL (4.8-10.8)
[2017-05-31 11:50] LABS: BLOOD UREA NITROGEN 25 mg/dL (7-17); GFR AFRICAN-AMERICAN > 60; GFR NON-AFRICAN AMERICAN > 60
[2017-05-31] MEDS ORDERED: Morphine 4 MG/ML VIAL ONE (11:57)
[2017-05-31] MEDS ORDERED: Potassium Chloride 20 mEq/15 ml LIQ UD PO STA (12:06)
[2017-05-31 12:35] VITALS: BP 111/55; PULSE 63; RESP 20
[2017-05-31 13:19] VITALS: O2SAT 97
--- NOTE | 2017-05-31 16:05 | RAD ---
PROCEDURE: Radiographs of the Chest and Left Ribs. HISTORY: L SIDE PAIN HO MET CA RO BONY LESIONS COMPARISON: CTA from 05/22/2017. TECHNIQUE: Frontal radiograph of the chest and multiple oblique radiographs of the left ribs were obtained. FINDINGS: The left-sided [employer] terminates brachiocephalic vein. LEFT RIBS: No acute fracture or destructive bony lesion visualized. LUNGS: The lungs are clear. PLEURA: No pneumothorax or pleural fluid. CARDIOVASCULAR: Normal sized heart. No pulmonary vascular congestion. OTHER FINDINGS: None. IMPRESSION: No acute rib fracture or destructive bony lesion.
[2017-05-31] MEDS ORDERED: Potassium Chloride 20 mEq/15 ml LIQ UD ONE (16:08)
== END 2017-05-31 14:12 | disposition home or self-care (01) ==
LOC: C.ER 10:15
DX: R07.89 Other chest pain (principal); C50.919 Malignant neoplasm of unspecified site of unspecified female breast; E87.6 Hypokalemia
CPT/HCPCS: 71101; 80048; 85025; 96374; 99284; J2270

== ENCOUNTER 2017-07-06 12:01 | Inpatient (IN) | payer OTHER ==
[2017-07-06 12:01] VITALS: BMI 50.1
--- NOTE | 2017-07-06 13:08 | C.PDOC ---
History Of Present Illness 57 y/o female, w/PMhx of metastatic breast cancer presents to the ER complaining of SOB which has been worsening over the past few days. Patient states that her cancer metastasized to the lungs and she was admitted in [facility] for pneumonia 2 months ago. patient is also complaining of left shoulder pain which began after she dislocated her shoulder several months ago. Time Seen by Provider: 07/06/17 12:40 Chief Complaint (Nursing): Shortness Of Breath History Per: Patient History/Exam Limitations: no limitations Onset/Duration Of Symptoms: Days Current Symptoms Are (Timing): Still Present Severity: Moderate Past Medical History Reviewed: Historical Data, Nursing Documentation, Vital Signs Vital Signs: Last Vital Signs Temp 98.1 F 07/06/17 17:15 Pulse 91 H 07/06/17 17:15 Resp 20 07/06/17 17:15 BP 113/74 07/06/17 17:15 Pulse Ox 100 07/06/17 17:15 - Medical History PMH: Asthma (CHILDHOOD NO MEDS), Fractures (TOE/ARM NO SURGERY), HTN, Malignancy (BREAST CANCER on chemotherapy), Pneumonia (Childhood) Denies: Atrial Fibrillation, Bronchitis, Cardia Arrhythmia, CHF, COPD, Emphysema, Hypercholesterolemia, Mitral Valve Prolapse, Peripheral Edema, Pulmonary Embolism, Chronic Kidney Disease, Sleep Apnea Surgical History: Denies: Pacemaker - [facility] Procedures CONTRAST PHLEBOGRAM NEC (04/10/14) DX ULTRASOUND-THORAX NEC (11/09/13) ENDO RECTUM POLYPECTOMY (11/30/12) INSERTION OF TOTALLY IMPLANTABLE VASC ACCESS DEVIC (11/09/13) LOCAL EXCIS BREAST LES (08/17/13) LYMPHATIC STRUCT BIOPSY (08/17/13) THORAX SFT TISS XRAY NEC (11/09/13) UNILAT EXTEN SIMP MASTEC (07/05/14) UNILAT REDUCT MAMMOPLAST (07/05/14) Family History: States: No Known Family Hx - Social History Hx Tobacco Use: No Hx Alcohol Use: No Hx Substance Use: No - Immunization History Hx Tetanus Toxoid Vaccination: No Hx Influenza Vaccination: No Hx Pneumococcal Vaccination: No Review Of Systems Except As Marked, All Systems Reviewed And Found Negative. Constitutional: Negative for: Fever, Chills Cardiovascular: Negative for: Chest Pain Respiratory: Positive for: Shortness of Breath. Negative for: Cough Musculoskeletal: Positive for: Shoulder Pain (left shoulder pain) Neurological: Negative for: Weakness, Numbness Physical Exam - Physical Exam Appears: No Acute Distress Skin: Normal Color, Warm Head: Atraumatic, Normacephalic Eye(s): bilateral: Normal Inspection Nose: Normal Oral Mucosa: Moist Neck: Supple Chest: Symmetrical Cardiovascular: Rhythm Regular Respiratory: No Rales, No Rhonchi, Wheezing (diffuse wheezing bilaterally) Extremity: Pedal Edema (bilateral legs ( L>R)) Neurological/Psych: Oriented x3, Normal Speech ED Course And Treatment - Laboratory Results Result Diagrams: 07/06/17 13:42 07/06/17 13:42 O2 Sat by Pulse Oximetry: 99 (RA) Pulse Ox Interpretation: Normal - Other Rad CXR X-Ray: Viewed By Me, Read By Radiologist Interpretation: PROCEDURE: CHEST RADIOGRAPH, 1 VIEW. HISTORY: SOB. COMPARISON: 05/31/2017. FINDINGS: LUNGS: No infiltrate. Right suprahilar mass. Smaller mass lateral mid right lung. These correspond masses identified on CT examination of the chest on 05/22/2017. PLEURA: No pneumothorax or pleural fluid seen. CARDIOVASCULAR: Normal heart size. Suspect right hilar lymphadenopathy. Left central venous infusion port. This port terminates on the left side. OSSEOUS STRUCTURES: No significant abnormalities. VISUALIZED UPPER ABDOMEN: Normal. OTHER FINDINGS: None. IMPRESSION: No acute infiltrate. Right pulmonary masses as described and corresponding to findings on prior chest CT examination. X-Ray-Left Shoulder X-Ray: Viewed By Me, Read By Radiologist Interpretation: PROCEDURE: Radiographs of the Left Shoulder. HISTORY: pain. COMPARISON: Chest and left rib series 05/31/2017. FINDINGS: BONES: . No fracture. JOINTS: Glenohumeral and acromioclavicular arthrosis. SOFT TISSUES : Normal. OTHER FINDINGS: Left central venous infusion port in place as before. IMPRESSION: Left shoulder arthrosis. Left central venous infusion port in place as before Progress Note: Labs and CXR ordered. Patient given nebulizer treatment. Reassessment Condition: Unchanged - Physician Consult Information Physician Contacted: Amina Mitchell Outcome Of Conversation: accepted for observation to Med/surg Disposition - Disposition Disposition: HOSPITALIZED Disposition Time: 15:53 Condition: FAIR - Clinical Impression Clinical Impression: Dyspnea, Metastatic cancer Decision To Admit - Pt Status Changed To: Hospital Disposition Of: Observation - . Bed Request Type: Regular Admitting Physician: Amina Mitchell Patient Diagnosis: Dyspnea, Metastatic cancer
[2017-07-06] MEDS ORDERED: Albuterol 0.083% Inhal Sol (2.5 mg/3 mL) UD INH STA (13:10)
[2017-07-06] MEDS ORDERED: Albuterol-Ipratrop 3 mg / 0.5 (3 ml) UD IH STA (13:10)
[2017-07-06] MEDS ORDERED: Albuterol-Ipratrop 3 mg / 0.5 (3 ml) UD ONE (13:28)
[2017-07-06] MEDS ORDERED: Albuterol 0.083% Inhal Sol (2.5 mg/3 mL) UD ONE (13:28)
[2017-07-06 13:46] LABS: BASO # 0.1 K/uL (0.0-0.2); BASO % 0.7 % (0.0-2.0); EOS # 0.1 K/uL (0.0-0.7); EOS % 1.1 % (0.0-4.0); HEMOGLOBIN 10.3 g/dL (11.0-16.0); LYMPH # 1.3 K/uL (1.0-4.3); LYMPH % 17.8 % (20.0-40.0); MEAN CELL VOLUME 75.9 fL (81.0-99.0); MEAN CORPUSCULAR HEMOGLOBIN 24.2 pg (27.0-31.0); MEAN CORPUSCULAR HGB CONC 31.9 g/dL (33.0-37.0); MEAN PLATELET VOLUME 7.3 fL (7.2-11.7); MONO # 0.3 K/uL (0.0-0.8); MONO % 4.6 % (0.0-10.0); NEUT # 5.5 K/uL (1.8-7.0); NEUT % 75.8 % (50.0-75.0); NRBC % 0.1 % (0.0-2.0); RBC 4.23 Mil/uL (3.80-5.20); RED CELL DISTRIBUTION WIDTH 15.8 % (11.5-14.5); WHITE BLOOD COUNT 7.3 K/uL (4.8-10.8)
--- NOTE | 2017-07-06 13:49 | RAD ---
PROCEDURE: CHEST RADIOGRAPH, 1 VIEW HISTORY: SOB COMPARISON: 05/31/2017 FINDINGS: LUNGS: No infiltrate. Right suprahilar mass. Smaller mass lateral mid right lung. These correspond masses identified on CT examination of the chest on 05/22/2017. PLEURA: No pneumothorax or pleural fluid seen. CARDIOVASCULAR: Normal heart size. Suspect right hilar lymphadenopathy. Left central venous infusion port. This port terminates on the left side. OSSEOUS STRUCTURES: No significant abnormalities. VISUALIZED UPPER ABDOMEN: Normal. OTHER FINDINGS: None. IMPRESSION: No acute infiltrate. Right pulmonary masses as described and corresponding to findings on prior chest CT examination.
[2017-07-06 13:54] LABS: INR 1.1; PROTHROMBIN TIME 12.6 SECONDS (9.7-12.2)
[2017-07-06 14:05] LABS: ALB/GLOB RATIO 1.1 (1.0-2.1); ALBUMIN 3.8 g/dL (3.5-5.0); CALCIUM 9.5 mg/dl (8.6-10.4); GFR AFRICAN-AMERICAN > 60; GFR NON-AFRICAN AMERICAN > 60
[2017-07-06 14:15] LABS: B-TYPE NATRIURETIC PEPTIDE 386 pg/mL (0-900)
[2017-07-06 14:31] LABS: ALT/SGPT 10 U/L (9-52); AST/SGOT 28 U/L (14-36); BLOOD UREA NITROGEN 10 mg/dL (7-17)
--- NOTE | 2017-07-06 16:38 | RAD ---
PROCEDURE: Radiographs of the Left Shoulder HISTORY: pain COMPARISON: Chest and left rib series 05/31/2017 FINDINGS: BONES: . No fracture. JOINTS: Glenohumeral and acromioclavicular arthrosis SOFT TISSUES: Normal. OTHER FINDINGS: Left central venous infusion port in place as before IMPRESSION: Left shoulder arthrosis. Left central venous infusion port in place as before
--- NOTE | 2017-07-06 18:53 | CP.PCM.CON ---
History of Present Illness - History of Present Illness History of Present Illness: 57 year old female with a history of stage III multicentric right breast cancer (ER/DC positive HER2, and triple negative) s/p neoadjuvant chemotherapy, mastectomy and axillary LN dissection (ypT1b N1a) 07/2014, radiation, on hormonal therapy, admitted with worsening shortness of breath. She had a PET CT scan about 2 weeks ago which is suggestive of metastatic disease. She is unable to sleep flat and has been sleeping in a recliner due to shortness of breath. She does have dyspnea on exertion which has worsened. She denies weightloss and reports her energy level has been okay. She has no headaches. Past medical history: Breast cancer Past surgical history: Right mastectomy with axillar LN dissection, left reductive mammoplasy Family history: Brother had renal cell carcinoma Social history: Denies tobacco, alcohol, and illicit drug use. Allergies: NKA Review of systems: All remaining review of systems including HEENT, cardiovascular, respiratory, gastrointestinal, genitourinary, musculoskeletal, dermatologic, neurologic, and psychiatric are negative unless mentioned in the HPI. Past Patient History - Past Medical History & Family History Past Medical History?: Yes - Past Social History Smoking Status: Never Smoked - CARDIAC Hx Atrial Fibrillation: No Hx Cardia Arrhythmia: No Hx Congestive Heart Failure: No Hx Hypercholesterolemia: No Hx Hypertension: Yes Hx Mitral Valve Prolapse: No Hx Pacemaker: No Hx Peripheral Edema: No - PULMONARY Hx Asthma: Yes (CHILDHOOD NO MEDS) Hx Bronchitis: No Hx Chronic Obstructive Pulmonary Disease (COPD): No Hx Emphysema: No Hx Pneumonia: Yes (Childhood) Hx Pulmonary Embolism: No Hx Sleep Apnea: No - NEUROLOGICAL Hx Neurological Disorder: No - HEENT Hx HEENT Problems: No Other/Comment: GLASSES - RENAL Hx Chronic Kidney Disease: No - ENDOCRINE/METABOLIC Hx Endocrine Disorders: No - HEMATOLOGICAL/ONCOLOGICAL Hx Cancer: Yes (breast) - INTEGUMENTARY Hx Dermatological Problems: No - MUSCULOSKELETAL/RHEUMATOLOGICAL Hx Fractures: Yes (TOE/ARM NO SURGERY) - GENITOURINARY/GYNECOLOGICAL Hx Genitourinary Disorders: Yes Other/Comment: right breast cancer - PSYCHIATRIC Hx Substance Use: No - SURGICAL HISTORY Hx Surgeries: Yes Hx Section: Yes (one) Other/Comment: breast removal s/p breast ca july 2014. - ANESTHESIA Hx Anesthesia: Yes Hx Anesthesia Reactions: No Hx Malignant Hyperthermia: No Meds Allergies/Adverse Reactions: Allergies Allergy/AdvReac Type Severity Reaction Status Date / Time No Known Allergies Allergy Verified 07/06/17 12:11 - Medications Medications: Current Medications Alteplase, Recombinant (Cathflo 2 Mg Inj) 2 mg IV ONCE ONE Stop: 07/06/17 18:50 Physical Exam - Head Exam Head Exam: ATRAUMATIC - Eye Exam Eye Exam: Normal appearance - ENT Exam ENT Exam: Mucous Membranes Dry - Respiratory Exam Respiratory Exam: NORMAL BREATHING PATTERN - Cardiovascular Exam Cardiovascular Exam: +S1, +S2 - GI/Abdominal Exam GI & Abdominal Exam: Normal Bowel Sounds - Extremities Exam Extremities exam: Positive for: pedal edema - Neurological Exam Neurological exam: Oriented x3 - Psychiatric Exam Psychiatric exam: Normal Affect, Normal Mood - Skin Skin Exam: Warm Results - Vital Signs Recent Vital Signs: Last Vital Signs Temp 98.1 F 07/06/17 17:15 Pulse 91 H 07/06/17 17:15 Resp 20 07/06/17 17:15 BP 113/74 07/06/17 17:15 Pulse Ox 99 07/06/17 17:35 - Labs Result Diagrams: 07/06/17 13:42 07/06/17 13:42 Labs: Laboratory Results - last 24 hr 07/06/17 07/06/17 07/06/17 13:42 13:42 13:42 WBC 7.3 RBC 4.23 Hgb 10.3 L Hct 32.1 L MCV 75.9 L MCH 24.2 L MCHC 31.9 L RDW 15.8 H Plt Count 356 MPV 7.3 Neut % (Auto) 75.8 H Lymph % (Auto) 17.8 L [place] % (Auto) 4.6 Eos % (Auto) 1.1 Baso % (Auto) 0.7 Neut # (Auto) 5.5 Lymph # (Auto) 1.3 [place] # (Auto) 0.3 Eos # (Auto) 0.1 Baso # (Auto) 0.1 PT 12.6 H INR 1.1 APTT 23 D-Dimer, Quantitative Sodium 141 Potassium 3.8 Chloride 101 Carbon Dioxide 29 Anion Gap 15 BUN 10 Creatinine 0.7 Est GFR ( Amer) > 60 Est GFR (Non-Af Amer) > 60 Random Glucose 79 Calcium 9.5 Total Bilirubin 1.0 AST 28 ALT 10 Alkaline Phosphatase 101 Troponin I < 0.0120 NT-Pro-B Natriuret Pep 386 Total Protein 7.4 Albumin 3.8 Globulin 3.6 Albumin/Globulin Ratio 1.1 07/06/17 16:23 WBC RBC Hgb Hct MCV MCH MCHC RDW Plt Count MPV Neut % (Auto) Lymph % (Auto) [place] % (Auto) Eos % (Auto) Baso % (Auto) Neut # (Auto) Lymph # (Auto) [place] # (Auto) Eos # (Auto) Baso # (Auto) PT INR APTT D-Dimer, Quantitative 735 H Sodium Potassium Chloride Carbon Dioxide Anion Gap BUN Creatinine Est GFR ( Amer) Est GFR (Non-Af Amer) Random Glucose Calcium Total Bilirubin AST ALT Alkaline Phosphatase Troponin I NT-Pro-B Natriuret Pep Total Protein Albumin Globulin Albumin/Globulin Ratio Assessment & Plan (1) Dyspnea Assessment and Plan: may be secondary to lung metastasis will order CT angio of chest to rule out PE f/u LE venous duplex Status: Acute (2) Metastatic cancer Assessment and Plan: suspect recurrent breast cancer will check with IR if can biopsy most accessible lesion has been on hormonal therapy ? new lesions triple negative disease vs hormonally responsive disease Status: Acute (3) Breast cancer Assessment and Plan: rule out recurrence Status: Acute (4) Anemia Assessment and Plan: mild will check ferritin, retic count, b12, folate to further characterize Thank you for this interesting consult. Status: Acute
[2017-07-06] MEDS ORDERED: Iodixanol 320 MG/ML 100 ML BOTTLE IV ONE (19:10)
[2017-07-06] MEDS ORDERED: Iohexol 300 100 ML IJ ONE (20:55)
--- NOTE | 2017-07-06 21:42 | CP.PCM.HP ---
Past Patient History - Past Medical History & Family History Past Medical History?: Yes - Past Social History Smoking Status: Never Smoked - CARDIAC Hx Atrial Fibrillation: No Hx Cardia Arrhythmia: No Hx Congestive Heart Failure: No Hx Hypercholesterolemia: No Hx Hypertension: Yes Hx Mitral Valve Prolapse: No Hx Pacemaker: No Hx Peripheral Edema: No - PULMONARY Hx Asthma: Yes (CHILDHOOD NO MEDS) Hx Bronchitis: No Hx Chronic Obstructive Pulmonary Disease (COPD): No Hx Emphysema: No Hx Pneumonia: Yes (Childhood) Hx Pulmonary Embolism: No Hx Sleep Apnea: No - NEUROLOGICAL Hx Neurological Disorder: No - HEENT Hx HEENT Problems: No Other/Comment: GLASSES - RENAL Hx Chronic Kidney Disease: No - ENDOCRINE/METABOLIC Hx Endocrine Disorders: No - HEMATOLOGICAL/ONCOLOGICAL Hx Cancer: Yes (breast) - INTEGUMENTARY Hx Dermatological Problems: No - MUSCULOSKELETAL/RHEUMATOLOGICAL Hx Fractures: Yes (TOE/ARM NO SURGERY) - GENITOURINARY/GYNECOLOGICAL Hx Genitourinary Disorders: Yes Other/Comment: right breast cancer - PSYCHIATRIC Hx Substance Use: No - SURGICAL HISTORY Hx Surgeries: Yes Hx Section: Yes (one) Other/Comment: breast removal s/p breast ca july 2014. - ANESTHESIA Hx Anesthesia: Yes Hx Anesthesia Reactions: No Hx Malignant Hyperthermia: No Meds Allergies/Adverse Reactions: Allergies Allergy/AdvReac Type Severity Reaction Status Date / Time No Known Allergies Allergy Verified 07/06/17 12:11 Physical Exam - Constitutional Appears: Well - Head Exam Head Exam: ATRAUMATIC, NORMAL INSPECTION, NORMOCEPHALIC - Eye Exam Eye Exam: EOMI, Normal appearance, PERRL Pupil Exam: NORMAL ACCOMODATION, PERRL - ENT Exam ENT Exam: Mucous Membranes Moist, Normal Exam - Neck Exam Neck exam: Positive for: Normal Inspection - Respiratory Exam Respiratory Exam: Decreased Breath Sounds - Cardiovascular Exam Cardiovascular Exam: REGULAR RHYTHM, +S1, +S2 - GI/Abdominal Exam GI & Abdominal Exam: Diminished Bowel Sounds, Soft - Rectal Exam Rectal Exam: Deferred Results - Vital Signs Recent Vital Signs: Last Vital Signs Temp 98.1 F 07/06/17 17:15 Pulse 91 H 07/06/17 17:15 Resp 20 07/06/17 17:15 BP 113/74 07/06/17 17:15 Pulse Ox 99 07/06/17 17:35 - Labs Result Diagrams: 07/06/17 13:42 07/06/17 13:42 Labs: Laboratory Results - last 24 hr 07/06/17 07/06/17 07/06/17 13:42 13:42 13:42 WBC 7.3 RBC 4.23 Hgb 10.3 L Hct 32.1 L MCV 75.9 L MCH 24.2 L MCHC 31.9 L RDW 15.8 H Plt Count 356 MPV 7.3 Neut % (Auto) 75.8 H Lymph % (Auto) 17.8 L [place] % (Auto) 4.6 Eos % (Auto) 1.1 Baso % (Auto) 0.7 Neut # (Auto) 5.5 Lymph # (Auto) 1.3 [place] # (Auto) 0.3 Eos # (Auto) 0.1 Baso # (Auto) 0.1 PT 12.6 H INR 1.1 APTT 23 D-Dimer, Quantitative Sodium 141 Potassium 3.8 Chloride 101 Carbon Dioxide 29 Anion Gap 15 BUN 10 Creatinine 0.7 Est GFR ( Amer) > 60 Est GFR (Non-Af Amer) > 60 Random Glucose 79 Calcium 9.5 Total Bilirubin 1.0 AST 28 ALT 10 Alkaline Phosphatase 101 Troponin I < 0.0120 NT-Pro-B Natriuret Pep 386 Total Protein 7.4 Albumin 3.8 Globulin 3.6 Albumin/Globulin Ratio 1.1 07/06/17 16:23 WBC RBC Hgb Hct MCV MCH MCHC RDW Plt Count MPV Neut % (Auto) Lymph % (Auto) [place] % (Auto) Eos % (Auto) Baso % (Auto) Neut # (Auto) Lymph # (Auto) [place] # (Auto) Eos # (Auto) Baso # (Auto) PT INR APTT D-Dimer, Quantitative 735 H Sodium Potassium Chloride Carbon Dioxide Anion Gap BUN Creatinine Est GFR ( Amer) Est GFR (Non-Af Amer) Random Glucose Calcium Total Bilirubin AST ALT Alkaline Phosphatase Troponin I NT-Pro-B Natriuret Pep Total Protein Albumin Globulin Albumin/Globulin Ratio
[2017-07-06] MEDS ORDERED: Morphine 4 MG/ML VIAL IVP PRN (21:58)
--- NOTE | 2017-07-06 23:45 | CT ---
EXAM: CT Angiography Chest With Intravenous Contrast CLINICAL HISTORY: 57 years old, female; Signs and symptoms; Dyspnea; Additional info: Rule out pe TECHNIQUE: Axial computed tomographic angiography images of the chest with intravenous contrast using pulmonary embolism protocol. All CT scans at this facility use one or more dose reduction techniques, viz.: automated exposure control; ma/kV adjustment per patient size (including targeted exams where dose is matched to indication; i.e. head); or iterative reconstruction technique. MIP reconstructed images were created and reviewed. Coronal and sagittal reformatted images were created and reviewed. CONTRAST: 100 mL of OMNIPAQUE 300 administered intravenously. COMPARISON: CT - ANGIO CHEST PE PROTOCOL 2017-05-22 19:38 FINDINGS: Limitations: Streak artifact - moderate. Motion artifact - mild. Pulmonary arteries: Enlargement pulmonary trunk, up to 3.6 cm. No definite pulmonary embolism. Aorta: No aneurysm. No dissection. Superior vena cava: Persistent left SVC. Lungs: Mild atelectasis/scarring. No consolidation. Multiple pulmonary nodules, largest up to 3.9 cm, minimally increased in size from previous examination. Mild patchy groundglass opacities within right lung apex, grossly stable. Pleural space: No significant effusion. No pneumothorax. Heart: Mild cardiomegaly. Trace focal pericardial effusion. Bones/joints: Degenerative changes of shoulders and spine. No acute fracture. Mild patchy sclerosis within head of right clavicle, stable. Soft tissues: Postsurgical changes of chest wall. Mild skin thickening of right chest wall, grossly stable. Lymph nodes: Several enlarged mediastinal and right hilar lymph nodes. Tubes, lines and devices: Central venous catheter. IMPRESSION: 1. No definite CT evidence of pulmonary embolism. 2. Multiple pulmonary nodules suggestive of metastatic disease. 3. Patchy sclerosis within right clavicle. Suggest bone scan to evaluate for metastases. 4. Patchy groundglass opacities within right lung apex, stable. 5. Incidental/non-acute findings are described above.
[2017-07-07] MEDS: Azithromycin 500 MG in Sodium Chloride 0.9% 250 ML IVPB SCH ×2 (00:52→10:59)
--- NOTE | 2017-07-07 08:32 | VASCLAB ---
PROCEDURE: Left Lower Extremity Venous Duplex Exam. HISTORY: pain/swelling PRIORS: None. TECHNIQUE: Left common femoral, femoral, popliteal and posterior tibial, peroneal and great saphenous veins were evaluated. Flow was assessed with color Doppler, compressibility, assessment of phasic flow and augmentation response. Report prepared by KISHA Pinzon, RVT FINDINGS: LEFT: 1. Common Femoral Vein: 1.1. Compressibility - Fully compressible: Thrombus - None : Flow - Phasic: Augmentation -Normal: Reflux - None. 2. Femoral Vein: 2.1. Compressibility - Fully compressible: Thrombus - None: Flow - Phasic: Augmentation -Normal: Reflux - None. 3. Popliteal Vein: 3.1. Compressibility - Fully compressible: Thrombus - None: Flow - Phasic: Augmentation -Normal: Reflux - None. 4. Posterior Tibial Vein: 4.1. Compressibility - Fully compressible: Thrombus - None: Flow - Phasic: Augmentation -Normal: Reflux - None. 5. Peroneal Vein: 5.1. Compressibility - Fully compressible: Thrombus - None: Flow - Phasic: Augmentation -Normal: Reflux - None. 6. Great Saphenous Vein: 6.1. Compressibility - Fully compressible: Thrombus - None: Flow - Phasic: Augmentation - Normal: Reflux - None. OTHER FINDINGS: IMPRESSION: No evidence of deep or superficial vein thrombosis of the left lower extremity with excellent venous flow. Normal valve function noted of the left side. Normal venous flow noted in the right common femoral vein.
--- NOTE | 2017-07-07 09:31 | CP.PCM.PN ---
Subjective - Date & Time of Evaluation Date of Evaluation: 07/07/17 Time of Evaluation: 07:40 - Subjective Subjective: clinically same Objective - Vital Signs/Intake and Output Vital Signs (last 24 hours): Temp Pulse Resp BP Pulse Ox 97.8 F 69 20 105/66 100 07/07/17 07:20 07/07/17 07:20 07/07/17 07:20 07/07/17 07:20 07/07/17 07:20 Intake and Output: 07/07/17 07/07/17 06:59 18:59 Intake Total 370 Balance 370 - Medications Medications: Current Medications Anastrozole (Arimidex 1 Mg Tab) 1 mg PO DAILY [facility] Enoxaparin Sodium (Lovenox) 60 mg SC DAILY [facility] Gabapentin (Neurontin) 400 mg PO TID [facility] Hydrochlorothiazide (Hydrodiuril) 25 mg PO DAILY [facility] Ceftriaxone Sodium (Rocephin Iv 1 Gm Duplex) 50 mls @ 100 mls/hr IVPB DAILY [facility] PRN Reason: Protocol Azithromycin 500 mg/ Sodium (Chloride) 250 mls @ 250 mls/hr IVPB DAILY [facility] PRN Reason: Protocol Last Admin: 07/07/17 00:52 Dose: 250 mls/hr Lisinopril (Zestril) 20 mg PO DAILY [facility] Metoclopramide HCl (Reglan) 10 mg PO TID PRN PRN Reason: Nausea/Vomiting Mometasone Furoate (Asmanex Twisthaler 220 Mcg) 220 puff INH QPM [facility] Morphine Sulfate (Morphine) 2 mg IVP Q8H PRN PRN Reason: Pain Pantoprazole Sodium (Protonix Ec Tab) 40 mg PO DAILY [facility] - Labs Labs: 07/06/17 13:42 07/06/17 13:42 PT 12.6 SECONDS (9.7-12.2) H 07/06/17 13:42 INR 1.1 07/06/17 13:42 APTT 23 SECONDS (21-34) 07/06/17 13:42 - Constitutional Appears: Well - Head Exam Head Exam: ATRAUMATIC, NORMAL INSPECTION, NORMOCEPHALIC - Eye Exam Eye Exam: EOMI, Normal appearance, PERRL Pupil Exam: NORMAL ACCOMODATION, PERRL - ENT Exam ENT Exam: Mucous Membranes Moist, Normal Exam - Neck Exam Neck Exam: Full ROM, Normal Inspection. absent: Lymphadenopathy - Respiratory Exam Respiratory Exam: Decreased Breath Sounds - Cardiovascular Exam Cardiovascular Exam: REGULAR RHYTHM, +S1, +S2 - GI/Abdominal Exam GI & Abdominal Exam: Soft, Diminished Bowel Sounds - Rectal Exam Rectal Exam: Deferred
[2017-07-07] MEDS ORDERED: Enoxaparin 60 mg Syringe SC SCH (10:00)
[2017-07-07] MEDS ORDERED: cefTRIAXone IV 1 gm in Dextros 50 ML IVPB SCH (10:00)
[2017-07-07] MEDS: Pantoprazole 40 mg EC Tab PO SCH (10:59)
--- NOTE | 2017-07-07 14:38 | CP.PCM.CON ---
History of Present Illness - History of Present Illness History of Present Illness: Reason for consult: shortness of breath 57F with PMHx of metastatic breast cancer on chemotherapy, childhood asthma, HTN presented to the ED yesterday with SOB that has worsened over the past few days. Patient reports that her cancer metastasized to her lungs and she was admitted to [facility] 2 months ago for pneumonia. She reports her shortness of breath did not improve after her last hospitalization and that she was told to increase her nebullizer treatments at home to 3x per day with no relief. PMHx: Metastatic breast cancer on chemo PSH: breast biopsies,simple mastectomy mammoplasty Allergies: NKDA SH: Never smoked 1. Shortness of breath, secondary to lung metastasis - CXR 07/06: Right suprahilar mass and smaller lateral mid right mass correlate with CT 05/22 - CTA 07/06: pulmonary nodules evidence of metastatic lung disease, possible sclerotic changes of right clavicle - Saturating 99-100% on 3L NC - continue empiric azithromycin and rocephin 2. Pulmonary embolism, low probability - stable RR,HR and saturation - D-dimer 735, likely elevated due to malginancy - CTA 07/06: no CT evidence of pulmonary embolism - LE Venous Doppler 07/06: no evidence of deep or superficial vein thrombosis of the LLE - Lovenox 60mg SC QD Past Patient History - Past Medical History & Family History Past Medical History?: Yes - Past Social History Smoking Status: Never Smoked - CARDIAC Hx Atrial Fibrillation: No Hx Cardia Arrhythmia: No Hx Congestive Heart Failure: No Hx Hypercholesterolemia: No Hx Hypertension: Yes Hx Mitral Valve Prolapse: No Hx Pacemaker: No Hx Peripheral Edema: No - PULMONARY Hx Asthma: Yes (CHILDHOOD NO MEDS) Hx Bronchitis: No Hx Chronic Obstructive Pulmonary Disease (COPD): No Hx Emphysema: No Hx Pneumonia: Yes (Childhood) Hx Pulmonary Embolism: No Hx Sleep Apnea: No - NEUROLOGICAL Hx Neurological Disorder: No - HEENT Hx HEENT Problems: No Other/Comment: GLASSES - RENAL Hx Chronic Kidney Disease: No - ENDOCRINE/METABOLIC Hx Endocrine Disorders: No - HEMATOLOGICAL/ONCOLOGICAL Hx Cancer: Yes (breast) - INTEGUMENTARY Hx Dermatological Problems: No - MUSCULOSKELETAL/RHEUMATOLOGICAL Hx Fractures: Yes (TOE/ARM NO SURGERY) - GENITOURINARY/GYNECOLOGICAL Hx Genitourinary Disorders: Yes Other/Comment: right breast cancer - PSYCHIATRIC Hx Substance Use: No - SURGICAL HISTORY Hx Surgeries: Yes Hx Section: Yes (one) Other/Comment: breast removal s/p breast ca july 2014. - ANESTHESIA Hx Anesthesia: Yes Hx Anesthesia Reactions: No Hx Malignant Hyperthermia: No Meds Allergies/Adverse Reactions: Allergies Allergy/AdvReac Type Severity Reaction Status Date / Time No Known Allergies Allergy Verified 07/06/17 12:11 - Medications Medications: Current Medications Anastrozole (Arimidex 1 Mg Tab) 1 mg PO DAILY [facility] Last Admin: 07/07/17 11:00 Dose: 1 mg Enoxaparin Sodium (Lovenox) 60 mg SC DAILY [facility] Last Admin: 07/07/17 10:59 Dose: 60 mg Gabapentin (Neurontin) 400 mg PO TID [facility] Last Admin: 07/07/17 11:00 Dose: 400 mg Hydrochlorothiazide (Hydrodiuril) 25 mg PO DAILY [facility] Last Admin: 07/07/17 10:59 Dose: 25 mg Ceftriaxone Sodium (Rocephin Iv 1 Gm Duplex) 50 mls @ 100 mls/hr IVPB DAILY [facility] PRN Reason: Protocol Last Admin: 07/07/17 10:03 Dose: 100 mls/hr Azithromycin 500 mg/ Sodium (Chloride) 250 mls @ 250 mls/hr IVPB DAILY [facility] PRN Reason: Protocol Last Admin: 07/07/17 10:59 Dose: 250 mls/hr Lisinopril (Zestril) 20 mg PO DAILY [facility] Last Admin: 07/07/17 10:59 Dose: 20 mg Metoclopramide HCl (Reglan) 10 mg PO TID PRN PRN Reason: Nausea/Vomiting Mometasone Furoate (Asmanex Twisthaler 220 Mcg) 220 puff INH QPM [facility] Morphine Sulfate (Morphine) 2 mg IVP Q8H PRN PRN Reason: Pain Pantoprazole Sodium (Protonix Ec Tab) 40 mg PO DAILY [facility] Last Admin: 07/07/17 10:59 Dose: 40 mg Results - Vital Signs Recent Vital Signs: Last Vital Signs Temp 97.8 F 07/07/17 07:20 Pulse 69 07/07/17 07:20 Resp 20 07/07/17 07:20 BP 105/66 07/07/17 07:20 Pulse Ox 100 07/07/17 12:38 - Labs Result Diagrams: 07/06/17 13:42 07/06/17 13:42 Labs: Laboratory Results - last 24 hr 07/06/17 16:23 D-Dimer, Quantitative 735 H
--- NOTE | 2017-07-07 17:13 | CP.PCM.PN ---
Subjective - Date & Time of Evaluation Date of Evaluation: 07/07/17 Time of Evaluation: 12:00 - Subjective Subjective: Medicine Progress Note for Dr. Mitchell Patient seen and examined at bedside. No acute events reported overnight. Patient still complains of shortness of breath at rest. Otherwise patient states she is eating and drinking well. Patient denies having headache, chest pain, abdominal pain, nausea, vomiting, or urinary symptoms. Objective - Vital Signs/Intake and Output Vital Signs (last 24 hours): Temp Pulse Resp BP Pulse Ox 98 F 80 20 105/71 100 07/07/17 16:00 07/07/17 16:00 07/07/17 16:00 07/07/17 16:00 07/07/17 16:32 Intake and Output: 07/07/17 07/07/17 06:59 18:59 Intake Total 370 660 Balance 370 660 - Medications Medications: Current Medications Anastrozole (Arimidex 1 Mg Tab) 1 mg PO DAILY [facility] Last Admin: 07/07/17 11:00 Dose: 1 mg Gabapentin (Neurontin) 400 mg PO TID [facility] Last Admin: 07/07/17 14:50 Dose: 400 mg Hydrochlorothiazide (Hydrodiuril) 25 mg PO DAILY [facility] Last Admin: 07/07/17 10:59 Dose: 25 mg Azithromycin 500 mg/ Sodium (Chloride) 250 mls @ 250 mls/hr IVPB DAILY [facility] PRN Reason: Protocol Last Admin: 07/07/17 10:59 Dose: 250 mls/hr Lisinopril (Zestril) 20 mg PO DAILY [facility] Last Admin: 07/07/17 10:59 Dose: 20 mg Methylprednisolone (Solu-Medrol) 40 mg IVP Q6 [facility] Metoclopramide HCl (Reglan) 10 mg PO TID PRN PRN Reason: Nausea/Vomiting Morphine Sulfate (Morphine) 2 mg IVP Q8H PRN PRN Reason: Pain Pantoprazole Sodium (Protonix Ec Tab) 40 mg PO DAILY [facility] Last Admin: 07/07/17 10:59 Dose: 40 mg - Labs Labs: 07/06/17 13:42 07/06/17 13:42 PT 12.6 SECONDS (9.7-12.2) H 07/06/17 13:42 INR 1.1 07/06/17 13:42 APTT 23 SECONDS (21-34) 07/06/17 13:42 - Constitutional Appears: No Acute Distress, Chronically Ill - Head Exam Head Exam: ATRAUMATIC, NORMOCEPHALIC - Eye Exam Eye Exam: Normal appearance - ENT Exam ENT Exam: Mucous Membranes Dry - Respiratory Exam Respiratory Exam: NORMAL BREATHING PATTERN. absent: Respiratory Distress - Cardiovascular Exam Cardiovascular Exam: REGULAR RHYTHM, +S1, +S2 Additional comments: left chest port in place - GI/Abdominal Exam GI & Abdominal Exam: Soft, Normal Bowel Sounds - Extremities Exam Extremities Exam: Pedal Edema - Neurological Exam Neurological Exam: Alert, Awake, Oriented x3 - Psychiatric Exam Psychiatric exam: Normal Affect, Normal Mood - Skin Skin Exam: Dry, Warm Assessment and Plan - Assessment and Plan (Free Text) Assessment: Shortness of breath -Likely secondary to lung CA metastasis -Pulmonary consulted, Dr. Tsai help appreciated -CXR 4/: Right suprahilar mass and smaller lateral mid right mass (see report) -CTA 07/06: pulmonary nodules evidence of metastatic lung disease, possible sclerotic changes of right clavicle (see report) -Solumedrol 40mg IV Q6 -continue with azithromycin and rocephin Metastatic breast cancer -heme onc consulted, Dr. Gibson help appreciated -anastrazole 1 mg po daily -Morphine 2mg IV Q8 PRN for pain -Left chest port a cath replacement with IR tomorrow, NPO after dinner hx of HTN -continue lisinopril daily -continue HCTZ daily hx of hypokalemia -continue supplementation with potassium chloride daily -will continue to monitor GI/DVT ppx -Alteplase -protonix discussed with Dr. Nate Mitchell; all management as per Dr. Nate Mitchell
[2017-07-07] MEDS: MethylPREDNISolone 40 mg Vial IVP SCH ×2 (17:46→23:42)
[2017-07-07] MEDS ORDERED: Mometasone 220 mcg/puff-14 puff Inh INH SCH (18:00)
--- NOTE | 2017-07-07 22:52 | CP.PCM.PN ---
Subjective - Date & Time of Evaluation Date of Evaluation: 07/07/17 Time of Evaluation: 13:00 - Subjective Subjective: Breathing better with oxygen but still short of breath. For IR lung biopsy and port replacement tomorrow. Objective - Vital Signs/Intake and Output Vital Signs (last 24 hours): Temp Pulse Resp BP Pulse Ox 98 F 80 20 105/71 100 07/07/17 16:00 07/07/17 16:00 07/07/17 16:00 07/07/17 16:00 07/07/17 16:32 Intake and Output: 07/07/17 07/08/17 18:59 06:59 Intake Total 660 Balance 660 - Medications Medications: Current Medications Anastrozole (Arimidex 1 Mg Tab) 1 mg PO DAILY [facility] Last Admin: 07/07/17 11:00 Dose: 1 mg Gabapentin (Neurontin) 400 mg PO TID [facility]CLUD[facility] Last Admin: 07/07/17 17:46 Dose: 400 mg Hydrochlorothiazide (Hydrodiuril) 25 mg PO DAILY [facility] Last Admin: 07/07/17 10:59 Dose: 25 mg Azithromycin 500 mg/ Sodium (Chloride) 250 mls @ 250 mls/hr IVPB DAILY [facility] PRN Reason: Protocol Last Admin: 07/07/17 10:59 Dose: 250 mls/hr Lisinopril (Zestril) 20 mg PO DAILY [facility] Last Admin: 07/07/17 10:59 Dose: 20 mg Methylprednisolone (Solu-Medrol) 40 mg IVP Q6 [facility]CLUD[facility] Last Admin: 07/07/17 17:46 Dose: 40 mg Metoclopramide HCl (Reglan) 10 mg PO TID PRN PRN Reason: Nausea/Vomiting Morphine Sulfate (Morphine) 2 mg IVP Q8H PRN PRN Reason: Pain Pantoprazole Sodium (Protonix Ec Tab) 40 mg PO DAILY COUNT [facility]CLUD[facility] Last Admin: 07/07/17 10:59 Dose: 40 mg - Labs Labs: 07/06/17 13:42 07/06/17 13:42 PT 12.6 SECONDS (9.7-12.2) H 07/06/17 13:42 INR 1.1 07/06/17 13:42 APTT 23 SECONDS (21-34) 07/06/17 13:42 - Head Exam Head Exam: ATRAUMATIC - ENT Exam ENT Exam: Mucous Membranes Dry - Respiratory Exam Respiratory Exam: NORMAL BREATHING PATTERN - Cardiovascular Exam Cardiovascular Exam: +S1, +S2 - GI/Abdominal Exam GI & Abdominal Exam: Normal Bowel Sounds Assessment and Plan (1) Dyspnea Assessment & Plan: no evidence of PE likely related to lung metastasis for IR biopsy of lung lesion in AM ? metastatic breast cancer Status: Acute (2) Metastatic cancer Assessment & Plan: for IR biopsy in AM ? metastatic breast cancer Status: Acute (3) Breast cancer Assessment & Plan: rule out metastatic disease Status: Acute (4) Anemia Assessment & Plan: chronic disease Status: Acute
[2017-07-08] MEDS: MethylPREDNISolone 40 mg Vial IVP SCH ×4 (05:56→23:31)
[2017-07-08 07:45] LABS: BASO % 0.2 % (0.0-2.0); HEMOGLOBIN 11.4 g/dL (11.0-16.0); LYMPH # 0.4 K/uL (1.0-4.3); LYMPH % 8.7 % (20.0-40.0); MEAN CELL VOLUME 76.3 fL (81.0-99.0); MEAN CORPUSCULAR HEMOGLOBIN 24.6 pg (27.0-31.0); MEAN CORPUSCULAR HGB CONC 32.2 g/dL (33.0-37.0); MEAN PLATELET VOLUME 7.4 fL (7.2-11.7); MONO % 0.8 % (0.0-10.0); NEUT # 4.6 K/uL (1.8-7.0); NEUT % 90.3 % (50.0-75.0); NRBC % 0.1 % (0.0-2.0); PLATELET COUNT 365 K/uL (130-400); RBC 4.61 Mil/uL (3.80-5.20); RED CELL DISTRIBUTION WIDTH 15.6 % (11.5-14.5)
[2017-07-08 07:55] LABS: ALBUMIN 3.7 g/dL (3.5-5.0); ALT/SGPT 9 U/L (9-52); AST/SGOT 20 U/L (14-36); BLOOD UREA NITROGEN 9 mg/dL (7-17); CALCIUM 9.5 mg/dl (8.6-10.4); GFR AFRICAN-AMERICAN > 60; GFR NON-AFRICAN AMERICAN > 60
[2017-07-08 08:52] LABS: ANISOCYTOSIS SLIGHT; HYPOCHROMIC SLIGHT; LYMPHOCYTE 11 % (20-40); MONOCYTE 1 % (0-10); NEUTROPHIL 88 % (50-75); PLATELET ESTIMATE NORMAL (NORMAL); POIKILOCYTOSIS SLIGHT; TOTAL CELLS COUNTED 100
--- NOTE | 2017-07-08 09:05 | CP.PCM.PN ---
Subjective - Date & Time of Evaluation Date of Evaluation: 07/08/17 Time of Evaluation: 09:00 - Subjective Subjective: PGY-[address] Mitchell Patient seen and examined at bedside. No acute events overnight. Patient reports her shortness of breath improved slightly. Patient denies having headache, chest pain, abdominal pain, nausea, vomiting, or urinary symptoms. Objective - Vital Signs/Intake and Output Vital Signs (last 24 hours): Temp Pulse Resp BP Pulse Ox 97.5 F L 90 20 121/85 95 07/08/17 08:29 07/08/17 08:29 07/08/17 08:29 07/08/17 08:29 07/08/17 08:29 Intake and Output: 07/08/17 07/08/17 06:59 18:59 Intake Total 0 Balance 0 - Medications Medications: Current Medications Anastrozole (Arimidex 1 Mg Tab) 1 mg PO DAILY [facility] Last Admin: 07/07/17 11:00 Dose: 1 mg Gabapentin (Neurontin) 400 mg PO TID [facility] Last Admin: 07/07/17 17:46 Dose: 400 mg Hydrochlorothiazide (Hydrodiuril) 25 mg PO DAILY [facility] Last Admin: 07/07/17 10:59 Dose: 25 mg Azithromycin 500 mg/ Sodium (Chloride) 250 mls @ 250 mls/hr IVPB DAILY [facility] PRN Reason: Protocol Last Admin: 07/07/17 10:59 Dose: 250 mls/hr Lisinopril (Zestril) 20 mg PO DAILY [facility] Last Admin: 07/07/17 10:59 Dose: 20 mg Methylprednisolone (Solu-Medrol) 40 mg IVP Q6 [facility] Last Admin: 07/08/17 05:56 Dose: 40 mg Metoclopramide HCl (Reglan) 10 mg PO TID PRN PRN Reason: Nausea/Vomiting Morphine Sulfate (Morphine) 2 mg IVP Q8H PRN PRN Reason: Pain Pantoprazole Sodium (Protonix Ec Tab) 40 mg PO DAILY [facility] Last Admin: 07/07/17 10:59 Dose: 40 mg - Labs Labs: 07/08/17 07:26 07/08/17 07:26 PT 12.6 SECONDS (9.7-12.2) H 07/06/17 13:42 INR 1.1 07/06/17 13:42 APTT 23 SECONDS (21-34) 07/06/17 13:42 - Additional Findings Additional findings: - Constitutional Appears: No Acute Distress, Chronically Ill - Head Exam Head Exam: ATRAUMATIC, NORMOCEPHALIC - Eye Exam Eye Exam: Normal appearance - ENT Exam ENT Exam: Mucous Membranes Dry - Respiratory Exam Respiratory Exam: NORMAL BREATHING PATTERN. absent: Respiratory Distress - Cardiovascular Exam Cardiovascular Exam: REGULAR RHYTHM, +S1, +S2 Additional comments: left chest port in place - GI/Abdominal Exam GI & Abdominal Exam: Soft, Normal Bowel Sounds - Extremities Exam Extremities Exam: Pedal Edema - Neurological Exam Neurological Exam: Alert, Awake, Oriented x3 - Psychiatric Exam Psychiatric exam: Normal Affect, Normal Mood - Skin Skin Exam: Dry, Warm Assessment and Plan - Assessment and Plan (Free Text) Assessment: Shortness of breath -improving -Likely secondary to lung CA metastasis -Pulmonary consulted, Dr. Tsai help appreciated -CXR 07/06: Right suprahilar mass and smaller lateral mid right mass (see report) -CTA 07/06: pulmonary nodules evidence of metastatic lung disease, possible sclerotic changes of right clavicle (see report) -Solumedrol 40mg IV Q6 -continue with azithromycin and rocephin Metastatic breast cancer -heme onc consulted, Dr. Gibson help appreciated -anastrazole 1 mg po daily -Morphine 2mg IV Q8 PRN for pain -Left chest port a cath replacement with IR and lung biopsy today hx of HTN -continue lisinopril daily -continue HCTZ daily hx of hypokalemia -Stable -continue supplementation with potassium chloride daily -will continue to monitor GI/DVT ppx -Alteplase -protonix DC planning for tomorrow discussed with Dr. Nate Mitchell; all management as per Dr. Nate Mitchell
[2017-07-08] MEDS: Pantoprazole 40 mg EC Tab PO SCH (09:32)
[2017-07-08] MEDS: Azithromycin 500 MG in Sodium Chloride 0.9% 250 ML IVPB SCH (09:40)
[2017-07-08] MEDS ORDERED: Pneumococcal 23-Valent Vaccine IM ONE (10:00)
[2017-07-08] MEDS ORDERED: HEPARIN-NS 5,000 UNITS/500 ML 5,000 UNIT/500 ML BAG IV ONE (10:32)
[2017-07-08] MEDS ORDERED: Lidocaine Hydrochloride 10 ML INJ ONE (10:32)
[2017-07-08] MEDS ORDERED: Propofol 10 mg/ml Inj (20 ML) ONE ×3 (10:38→13:10)
--- NOTE | 2017-07-08 11:22 | CP.PCM.PN ---
Subjective - Date & Time of Evaluation Date of Evaluation: 07/08/17 Time of Evaluation: 07:20 - Subjective Subjective: clinically same Objective - Vital Signs/Intake and Output Vital Signs (last 24 hours): Temp Pulse Resp BP Pulse Ox 97.5 F L 90 20 121/85 95 07/08/17 08:29 07/08/17 08:29 07/08/17 08:29 07/08/17 08:29 07/08/17 08:29 Intake and Output: 07/08/17 07/08/17 06:59 18:59 Intake Total 0 Balance 0 - Medications Medications: Current Medications Anastrozole (Arimidex 1 Mg Tab) 1 mg PO DAILY [facility] Last Admin: 07/08/17 09:32 Dose: Not Given Gabapentin (Neurontin) 400 mg PO TID [facility] Last Admin: 07/08/17 09:32 Dose: Not Given Hydrochlorothiazide (Hydrodiuril) 25 mg PO DAILY [facility] Last Admin: 07/08/17 09:32 Dose: Not Given Azithromycin 500 mg/ Sodium (Chloride) 250 mls @ 250 mls/hr IVPB DAILY [facility] PRN Reason: Protocol Last Admin: 07/08/17 09:40 Dose: 250 mls/hr Lisinopril (Zestril) 20 mg PO DAILY [facility] Last Admin: 07/08/17 09:40 Dose: 20 mg Methylprednisolone (Solu-Medrol) 40 mg IVP Q6 [facility] Last Admin: 07/08/17 05:56 Dose: 40 mg Metoclopramide HCl (Reglan) 10 mg PO TID PRN PRN Reason: Nausea/Vomiting Morphine Sulfate (Morphine) 2 mg IVP Q8H PRN PRN Reason: Pain Pantoprazole Sodium (Protonix Ec Tab) 40 mg PO DAILY [facility] Last Admin: 07/08/17 09:32 Dose: Not Given - Labs Labs: 07/08/17 07:26 07/08/17 07:26 PT 12.6 SECONDS (9.7-12.2) H 07/06/17 13:42 INR 1.1 07/06/17 13:42 APTT 23 SECONDS (21-34) 07/06/17 13:42 - Constitutional Appears: Well - Head Exam Head Exam: ATRAUMATIC, NORMAL INSPECTION, NORMOCEPHALIC - Eye Exam Eye Exam: EOMI, Normal appearance, PERRL Pupil Exam: NORMAL ACCOMODATION, PERRL - ENT Exam ENT Exam: Mucous Membranes Moist, Normal Exam - Neck Exam Neck Exam: Full ROM, Normal Inspection. absent: Lymphadenopathy - Respiratory Exam Respiratory Exam: Decreased Breath Sounds - Cardiovascular Exam Cardiovascular Exam: REGULAR RHYTHM, +S1, +S2 - GI/Abdominal Exam GI & Abdominal Exam: Soft, Diminished Bowel Sounds - Rectal Exam Rectal Exam: Deferred Assessment and Plan (1) Anemia Status: Acute (2) Breast cancer genetic susceptibility Status: Acute (3) Dyspnea Status: Acute (4) Metastatic cancer Status: Acute (5) Breast cancer Status: Acute (6) Breast cancer in female Status: Acute (7) Bronchitis Status: Acute (8) Chest wall pain Status: Acute (9) Dyspnea Status: Acute (10) Edema of both legs Status: Acute (11) Leukopenia Status: Acute (12) Malaise and fatigue Status: Acute (13) Onychomycosis Status: Acute (14) Pneumonia Status: Acute (15) Swelling of right upper extremity Status: Acute (16) Vision blurred Status: Acute - Assessment and Plan (Free Text) Plan: Patient had a lung biopsy DCM Needs permacath placement Status post pulmonary Status post hemato-oncologist Continue steroid Continue other medications as ordered like Zithromax and iv rocephin
--- NOTE | 2017-07-08 11:36 | PCM.SURG1 ---
Surgeon's Initial Post Op Note - Surgeon's Notes Surgeon: Dereje Carr MD Drum Worker: None Type of Anesthesia: MAC Pre-Operative Diagnosis: metastatic breast cancer; lung mass Operative Findings: right lower lobe mass Post-Operative Diagnosis: same Operation Performed: CT guided right lung mass core biopsy Specimen/Specimens Removed: 20 gauge core x3 right lower lobe mass Estimated Blood Loss: EBL {In ML}: 0 Date of Surgery/Procedure: 07/08/17 Time of Surgery/Procedure: 11:20
[2017-07-08] MEDS ORDERED: Midazolam 2 MG/2 ML VIAL ONE (11:39)
--- NOTE | 2017-07-08 13:23 | PCM.SURG1 ---
Surgeon's Initial Post Op Note - Surgeon's Notes Surgeon: Dereje Carr MD Machine Adjuster Leader: None Pre-Operative Diagnosis: malfunctioning chest port Operative Findings: indwelling left sided chest port with tip retracted. duplicated SVC. new 8 khmer chest port with tip in distal LEFT svc Post-Operative Diagnosis: same Operation Performed: left chest port revision Specimen/Specimens Removed: n/a Estimated Blood Loss: EBL {In ML}: 10 Date of Surgery/Procedure: 07/08/17 Time of Surgery/Procedure: 13:23
[2017-07-08] MEDS ORDERED: HYDROmorphone 0.5 mg/0.5 ml ISec IVP PRN (13:26)
--- NOTE | 2017-07-08 13:53 | CP.PCM.PN ---
Subjective - Date & Time of Evaluation Date of Evaluation: 07/08/17 Time of Evaluation: 13:15 - Subjective Subjective: No compliants, tolerated IR procedures well. Objective - Vital Signs/Intake and Output Vital Signs (last 24 hours): Temp Pulse Resp BP Pulse Ox 97.2 F L 55 L 17 140/78 97 07/08/17 13:24 07/08/17 13:30 07/08/17 13:30 07/08/17 13:30 07/08/17 13:30 Intake and Output: 07/08/17 07/08/17 06:59 18:59 Intake Total 0 755 Balance 0 755 - Medications Medications: Current Medications Anastrozole (Arimidex 1 Mg Tab) 1 mg PO DAILY [facility] Last Admin: 07/08/17 09:32 Dose: Not Given Gabapentin (Neurontin) 400 mg PO TID [facility] Last Admin: 07/08/17 09:32 Dose: Not Given Hydrochlorothiazide (Hydrodiuril) 25 mg PO DAILY [facility] Last Admin: 07/08/17 09:32 Dose: Not Given Hydromorphone HCl (Dilaudid) 0.5 mg IVP Q5M PRN PRN Reason: Pain, severe (8-10) Stop: 07/08/17 15:26 Azithromycin 500 mg/ Sodium (Chloride) 250 mls @ 250 mls/hr IVPB DAILY [facility] PRN Reason: Protocol Last Admin: 07/08/17 09:40 Dose: 250 mls/hr Lisinopril (Zestril) 20 mg PO DAILY [facility] Last Admin: 07/08/17 09:40 Dose: 20 mg Methylprednisolone (Solu-Medrol) 40 mg IVP Q6 [facility] Last Admin: 07/08/17 05:56 Dose: 40 mg Metoclopramide HCl (Reglan) 10 mg PO TID PRN PRN Reason: Nausea/Vomiting Morphine Sulfate (Morphine) 2 mg IVP Q8H PRN PRN Reason: Pain Pantoprazole Sodium (Protonix Ec Tab) 40 mg PO DAILY [facility] Last Admin: 07/08/17 09:32 Dose: Not Given - Labs Labs: 07/08/17 07:26 07/08/17 07:26 PT 12.6 SECONDS (9.7-12.2) H 07/06/17 13:42 INR 1.1 07/06/17 13:42 APTT 23 SECONDS (21-34) 07/06/17 13:42 - Head Exam Head Exam: ATRAUMATIC - Eye Exam Eye Exam: Normal appearance - ENT Exam ENT Exam: Mucous Membranes Dry - Respiratory Exam Respiratory Exam: NORMAL BREATHING PATTERN - Cardiovascular Exam Cardiovascular Exam: +S1, +S2 - GI/Abdominal Exam GI & Abdominal Exam: Normal Bowel Sounds Assessment and Plan (1) Dyspnea Assessment & Plan: improving likely secondary to lung mets s/p IR biopsy Status: Acute (2) Metastatic cancer Assessment & Plan: s/p IR biopsy outpatient f/u Status: Acute (3) Breast cancer Assessment & Plan: ? metastatic disease outpatient f/u of biopsy Status: Acute (4) Anemia Status: Acute
[2017-07-08] MEDS ORDERED: Lactated Ringer's 1,000 ML IV ONE (14:45)
--- NOTE | 2017-07-08 15:28 | RAD ---
HISTORY: s/p right lung biopsy, eval for ptx COMPARISON: 07/06/2017 FINDINGS: The left MediPort terminates in a left-sided SVC. LUNGS: The lungs are well inflated. Mild pulmonary venous congestion. There is a stable 1.5 cm nodule in the right mid lung. There is bilateral apical pleural thickening. PLEURA: There is a small right pneumothorax. No large pleural effusions. CARDIOVASCULAR: The heart remains enlarged with mild pulmonary venous congestion. OSSEOUS STRUCTURES: No significant abnormalities. VISUALIZED UPPER ABDOMEN: Normal. OTHER FINDINGS: None. IMPRESSION: Status post right lung biopsy, small right pneumothorax. No other significant interval change.
--- NOTE | 2017-07-08 16:52 | CP.PCM.PN ---
Subjective - Date & Time of Evaluation Date of Evaluation: 07/08/17 Time of Evaluation: 09:20 - Subjective Subjective: Patient had lung biopsy this AM and is scheduled for portacath placement this afternoon. Assessment and Plan: 1. Shortness of breath, secondary to lung metastasis - CXR 07/06: Right suprahilar mass and smaller lateral mid right mass correlate with CT 05/22 - CTA 3: pulmonary nodules evidence of metastatic lung disease, possible sclerotic changes of right clavicle - Dr. Darin Gibson consulted - IR consulted for biopsy of most accessible lung lesion - Saturating 95-100% on 2L NC - Procalcitonin 07/07: <0.05 - continue empiric azithromycin - montez cath placement today 2. Pulmonary embolism, low probability - stable RR,HR and saturation - D-dimer 735, likely elevated due to malignancy - CTA 07/06: no CT evidence of pulmonary embolism - LE Venous Doppler 07/06: no evidence of deep or superficial vein thrombosis of the LLE - Lovenox 60mg SC QD Objective - Vital Signs/Intake and Output Vital Signs (last 24 hours): Temp Pulse Resp BP Pulse Ox 98.2 F 82 21 147/81 100 07/08/17 15:45 07/08/17 15:45 07/08/17 15:45 07/08/17 15:45 07/08/17 15:45 Intake and Output: 07/08/17 07/08/17 06:59 18:59 Intake Total 0 1005 Balance 0 1005 - Medications Medications: Current Medications Anastrozole (Arimidex 1 Mg Tab) 1 mg PO DAILY [facility] Last Admin: 07/08/17 09:32 Dose: Not Given Gabapentin (Neurontin) 400 mg PO TID [facility] Last Admin: 07/08/17 15:40 Dose: Not Given Hydrochlorothiazide (Hydrodiuril) 25 mg PO DAILY [facility] Last Admin: 07/08/17 09:32 Dose: Not Given Azithromycin 500 mg/ Sodium (Chloride) 250 mls @ 250 mls/hr IVPB DAILY [facility] PRN Reason: Protocol Last Admin: 07/08/17 09:40 Dose: 250 mls/hr Lisinopril (Zestril) 20 mg PO DAILY [facility] Last Admin: 07/08/17 09:40 Dose: 20 mg Methylprednisolone (Solu-Medrol) 40 mg IVP Q6 [facility] Last Admin: 07/08/17 13:00 Dose: Not Given Metoclopramide HCl (Reglan) 10 mg PO TID PRN PRN Reason: Nausea/Vomiting Morphine Sulfate (Morphine) 2 mg IVP Q8H PRN PRN Reason: Pain Pantoprazole Sodium (Protonix Ec Tab) 40 mg PO DAILY [facility] Last Admin: 07/08/17 09:32 Dose: Not Given - Labs Labs: 07/08/17 07:26 07/08/17 07:26 PT 12.6 SECONDS (9.7-12.2) H 07/06/17 13:42 INR 1.1 07/06/17 13:42 APTT 23 SECONDS (21-34) 07/06/17 13:42
--- NOTE | 2017-07-08 17:01 | CT ---
PROCEDURE: CT-GUIDED RIGHT LUNG MASS BIOPSY CLINICAL HISTORY: 57-year-old female with metastatic breast cancer and FDG avid right lower lobe mass is referred to Interventional Radiology for percutaneous image-guided core needle biopsy. COMPARISON: CT angiography of the pulmonary arteries performed 07/06/2017 and PET-CT performed at [facility] on 06/14/2017 PROCEDURE: 1. Focused CT of the right hemithorax. 2. CT-guided core needle biopsy of the right lower lobe mass. PRE-PROCEDURE FINDINGS: 1. Redemonstration of posterior right lower lobe mass and satellite right upper lobe nodule POST-PROCEDURE FINDINGS: 1. No evidence of post-procedural complication. INTERVENTIONAL RADIOLOGIST: Dereje Carr M.D. (the attending was present for the entire procedure) ANESTHESIA: Provided by the attending anesthesiologist. Sedation was supervised by the anesthesiology attending with the presence of independent radiology nursing monitoring. Physiological data monitoring was performed throughout the entire procedure. The patient's blood pressure, EKG and pulse oximetry were recorded. The patient tolerated the procedure and sedation without untoward reactions. The intra-procedural sedation time was 20 minutes. MEDICATIONS: Lidocaine 1% for local subcutaneous analgesia. See anesthesia record for sedation medications. COMPLICATIONS: None. PROCEDURE DESCRIPTION AND FINDINGS: The risks, benefits, alternatives and possible complications of the procedure were fully discussed; all questions were answered and informed consent was obtained. The patient was brought into the interventional suite and a pre-procedure 'time-out' was performed. The patient was placed on the CT table in the prone position. The lesion was localized under CT-guidance and a bhavana was made on the skin site overlying the lesion. The right back was prepped and draped in the usual sterile fashion. Maximum sterile barrier precautions were maintained throughout the entire procedure. Preliminary focused CT images of the right hemithorax again demonstrate posterior right lower lobe mass and satellite right upper lobe nodule. Following subcutaneous infiltration of lidocaine 1% for local analgesia, under CT-guidance, a 19-gauge trocar needle was advanced into the posterior right lower lobe mass. The ultrasound images were permanently recorded and submitted to the PACS. The inner stylet was carefully removed. A 20-gauge biopsy device was coaxially loaded into the introducer needle and a total of 3 core needle biopsies were obtained. The biopsy device and trocar needle were removed. Adequate hemostasis was achieved utilizing manual compression. A sterile adhesive dressing was applied over the puncture site. Post-procedure imaging demonstrated no complications. The patient tolerated the procedure well without immediate post-procedure complications and was transferred to the OR in stable condition. IMPRESSION: Successful CT-guided core needle biopsy of the previously described FDG avid posterior right lower lobe mass. A total of 3 samples were obtained. Testing for breast hormonal receptors requested from pathology.
--- NOTE | 2017-07-08 17:05 | RAD ---
PROCEDURE: CHEST PORT REVISION CLINICAL HISTORY: 57-year-old female with metastatic breast cancer and new metastatic FDG avid lesions found to have malfunctioning chest port is referred to Interventional Radiology for chest port revision. PROCEDURE: 1. Port revision. PRE-PROCEDURE FINDINGS: 1. Healed incision without dehiscence or signs of inflammation/infection. 2. Indwelling left-sided internal jugular access chest port with catheter tip retracted into proximal duplicated left SVC. POST-PROCEDURE FINDINGS: 1. Successful port revision. INTERVENTIONAL RADIOLOGIST: Dereje Carr M.D. (the attending was present for the entire procedure) ANESTHESIA: Provided by the attending anesthesiologist. Sedation was supervised by the anesthesiology attending with the presence of independent radiology nursing monitoring. Physiological data monitoring was performed throughout the entire procedure. The patient's blood pressure, EKG and pulse oximetry were recorded. The patient tolerated the procedure and sedation without untoward reactions. The intra-procedural sedation time was 30 minutes. MEDICATION: Lidocaine 1% for local subcutaneous analgesia. See anesthesia record for sedation medications. COMPLICATIONS: None. RADIATION DOSE: Fluoroscopy Time: 82.9 seconds Cumulative Dose: 8.75 mGy PROCEDURE DESCRIPTION AND FINDINGS: The risks, benefits, alternatives and possible complications of the procedure were fully discussed; all questions were answered and informed consent was obtained. The patient was brought into the interventional suite and a pre-procedure 'time-out' was performed. The patient was placed on the fluoroscopy table in the supine position. The left upper chest was prepped and draped in the usual sterile fashion. Maximum sterile barrier precautions were maintained throughout the entire procedure. Preliminary fluoroscopic metal spraying machine operator image demonstrated an indwelling left-sided internal jugular access chest port with catheter tip retracted into the proximal duplicated left SVC. The incision from prior port placement was intact/healed without dehiscence or signs of inflammation/infection. Following subcutaneous infiltration of lidocaine 1%, the previous incision scar was incised. Using sharp and blunt dissection, the port was removed from the subcutaneous pocket. The catheter was cut and 0.035 guidewire was advanced via the catheter into the duplicated left-sided SVC. The catheter was removed and a new chest port catheter was advanced over the guidewire. The catheter was trimmed and attached to the chest port reservoir. The reservoir aspirated and flushed with ease. The port was placed within the subcutaneous pocket. The incision site for the port was sutured with interrupted subcutaneous and running subcuticular absorbable sutures. Dermabond was applied superficially. A sterile dressing was placed at the site. The patient tolerated the procedure well without immediate post-procedure complications and was transferred to the interventional radiology recovery area in stable condition. IMPRESSION: SUCCESSFUL PORT REVISION WITH CATHETER TIP IN DISTAL LEFT-SIDED DUPLICATED SVC. PORT OK TO USE.
[2017-07-08 18:09] VITALS: RESP 20
[2017-07-09] MEDS: MethylPREDNISolone 40 mg Vial IVP SCH ×3 (05:33→18:10)
[2017-07-09 07:28] LABS: BLOOD UREA NITROGEN 16 mg/dL (7-17); CALCIUM 9.4 mg/dl (8.6-10.4); GFR AFRICAN-AMERICAN > 60; GFR NON-AFRICAN AMERICAN > 60
[2017-07-09 07:34] LABS: BASO % 0.2 % (0.0-2.0); LYMPH # 0.4 K/uL (1.0-4.3); LYMPH % 3.9 % (20.0-40.0); MEAN CELL VOLUME 76.4 fL (81.0-99.0); MEAN CORPUSCULAR HEMOGLOBIN 24.6 pg (27.0-31.0); MEAN CORPUSCULAR HGB CONC 32.2 g/dL (33.0-37.0); MEAN PLATELET VOLUME 7.5 fL (7.2-11.7); MONO # 0.3 K/uL (0.0-0.8); MONO % 2.7 % (0.0-10.0); NEUT # 9.5 K/uL (1.8-7.0); NEUT % 93.2 % (50.0-75.0); NRBC % 0.1 % (0.0-2.0); PLATELET COUNT 366 K/uL (130-400); RBC 4.46 Mil/uL (3.80-5.20); RED CELL DISTRIBUTION WIDTH 15.9 % (11.5-14.5)
--- NOTE | 2017-07-09 07:34 | CP.PCM.PN ---
Subjective - Date & Time of Evaluation Date of Evaluation: 07/09/17 Time of Evaluation: 07:15 - Subjective Subjective: PGY-[address] Mitchell Patient seen and examined at bedside. Patient reports worsening shortness of breath and wheezes overnight. Patient is concerned that her shortness of breath will continue to worsen after hospital discharge. Objective - Vital Signs/Intake and Output Vital Signs (last 24 hours): Temp Pulse Resp BP Pulse Ox 98.1 F 78 20 151/82 H 98 07/09/17 00:00 07/09/17 00:00 07/09/17 00:00 07/08/17 16:30 07/09/17 00:00 Intake and Output: 07/09/17 07/09/17 06:59 18:59 Intake Total 940 Balance 940 - Medications Medications: Current Medications Anastrozole (Arimidex 1 Mg Tab) 1 mg PO DAILY [facility] Last Admin: 07/08/17 09:32 Dose: Not Given Gabapentin (Neurontin) 400 mg PO TID [facility] Last Admin: 07/08/17 17:26 Dose: 400 mg Hydrochlorothiazide (Hydrodiuril) 25 mg PO DAILY [facility] Last Admin: 07/08/17 09:32 Dose: Not Given Azithromycin 500 mg/ Sodium (Chloride) 250 mls @ 250 mls/hr IVPB DAILY [facility] PRN Reason: Protocol Last Admin: 07/08/17 09:40 Dose: 250 mls/hr Ceftriaxone Sodium 1 gm/ (Sodium Chloride) 100 mls @ 100 mls/hr IVPB DAILY [facility] PRN Reason: Protocol Stop: 07/18/17 18:01 Last Admin: 07/08/17 18:20 Dose: 100 mls/hr Lisinopril (Zestril) 20 mg PO DAILY [facility] Last Admin: 07/08/17 09:40 Dose: 20 mg Methylprednisolone (Solu-Medrol) 40 mg IVP Q6 [facility] Last Admin: 07/09/17 05:33 Dose: 40 mg Metoclopramide HCl (Reglan) 10 mg PO TID PRN PRN Reason: Nausea/Vomiting Morphine Sulfate (Morphine) 2 mg IVP Q8H PRN PRN Reason: Pain Pantoprazole Sodium (Protonix Ec Tab) 40 mg PO DAILY [facility] Last Admin: 07/08/17 09:32 Dose: Not Given - Labs Labs: 07/08/17 07:26 04/06/18 06:52 PT 12.6 SECONDS (9.7-12.2) H 07/06/17 13:42 INR 1.1 07/06/17 13:42 APTT 23 SECONDS (21-34) 07/06/17 13:42 - Additional Findings Additional findings: - Constitutional Appears: No Acute Distress, Chronically Ill - Head Exam Head Exam: ATRAUMATIC, NORMOCEPHALIC - Eye Exam Eye Exam: Normal appearance - ENT Exam ENT Exam: Mucous Membranes Dry - Respiratory Exam Respiratory Exam: NORMAL BREATHING PATTERN. absent: Respiratory Distress - Cardiovascular Exam Cardiovascular Exam: REGULAR RHYTHM, +S1, +S2 Additional comments: left chest port in place - GI/Abdominal Exam GI & Abdominal Exam: Soft, Normal Bowel Sounds - Extremities Exam Extremities Exam: Pedal Edema - Neurological Exam Neurological Exam: Alert, Awake, Oriented x3 - Psychiatric Exam Psychiatric exam: Normal Affect, Normal Mood - Skin Skin Exam: Dry, Warm Assessment and Plan - Assessment and Plan (Free Text) Assessment: Shortness of breath -Likely secondary to lung CA metastasis -Pulmonary consulted, Dr. Tsai help appreciated -CXR 4/3: Right suprahilar mass and smaller lateral mid right mass (see report) -CTA 4/3: pulmonary nodules evidence of metastatic lung disease, possible sclerotic changes of right clavicle (see report) -CXR 4/5: small right pneumothorax -CXR 4/6: No obvious pneumothorax. Mild venous congestion (see report) -Solumedrol 40mg IV Q6 -Duoneb 3ml INH RO6 Metastatic breast cancer -heme onc consulted, Dr. Gibson help appreciated -anastrazole 1 mg po daily -Morphine 2mg IV Q8 PRN for pain -Left chest port a cath replaced -Pending left lung biopsy results hx of HTN -continue lisinopril daily -continue HCTZ daily hx of hypokalemia -Stable -continue supplementation with potassium chloride daily -will continue to monitor GI/DVT ppx -Alteplase -protonix Dispo: planning for [place] discussed with Dr. Nate Mitchell; all management as per Dr. Nate Mitchell
[2017-07-09 07:38] LABS: WHITE BLOOD COUNT 10.2 K/uL (4.8-10.8)
[2017-07-09 08:43] LABS: BANDS 2 % (0-2); LYMPHOCYTE 7 % (20-40); MONOCYTE 2 % (0-10); NEUTROPHIL 89 % (50-75); TOTAL CELLS COUNTED 100
[2017-07-09 08:47] LABS: ANISOCYTOSIS SLIGHT; HYPOCHROMIC SLIGHT; PLATELET ESTIMATE NORMAL (NORMAL); POLYCHROMIC SLIGHT; TOXIC GRANULATION PRESENT
[2017-07-09 08:48] LABS: LARGE PLATELETS PRESENT
[2017-07-09] MEDS: Pantoprazole 40 mg EC Tab PO SCH (09:44)
--- NOTE | 2017-07-09 09:57 | RAD ---
HISTORY: Right pneumothorax status post lung biopsy shortness of breath COMPARISON: Comparison made with prior chest radiograph 07/08/2017. Comparison also made with CTA of the chest dated 07/06/2017. FINDINGS: No change left IJ MediPort. LUNGS: No obvious pneumothorax. Small mass density right lateral upper lung field and a larger right lower lobe mass less well seen compared to high-resolution CT scan Mild pulmonary vascular congestive changes slightly progressed. Re- demonstrated are chain sutures overlying right CP angle region. PLEURA: No significant pleural effusion identified, no pneumothorax apparent. CARDIOVASCULAR: Heart remains enlarged. OSSEOUS STRUCTURES: No significant abnormalities. VISUALIZED UPPER ABDOMEN: Normal. OTHER FINDINGS: None. IMPRESSION: No obvious pneumothorax. Mild venous congestion slightly increased from prior study. Small mass density right lateral upper lung field and a larger right lower lobe mass less well seen compared to high-resolution CT scan
[2017-07-09] MEDS ORDERED: Pneumococcal 23-Valent Vaccine IM ONE (10:00)
--- NOTE | 2017-07-09 10:44 | CARD ---
APPROVED REPORT EKG Measurement Heart [id number] <Conclusion> Normal sinus rhythm Normal ECG
--- NOTE | 2017-07-09 11:34 | CP.PCM.PN ---
Subjective - Date & Time of Evaluation Date of Evaluation: 07/09/17 Time of Evaluation: 11:00 - Subjective Subjective: Has periods of shortness of breath Objective - Vital Signs/Intake and Output Vital Signs (last 24 hours): Temp Pulse Resp BP Pulse Ox 98.2 F 80 20 151/85 H 97 07/09/17 07:00 07/09/17 07:00 07/09/17 07:00 07/09/17 07:00 07/09/17 07:00 Intake and Output: 07/09/17 07/09/17 06:59 18:59 Intake Total 940 Balance 940 - Medications Medications: Current Medications Anastrozole (Arimidex 1 Mg Tab) 1 mg PO DAILY [facility] Last Admin: 07/09/17 09:47 Dose: 1 mg Gabapentin (Neurontin) 400 mg PO TID [facility] Last Admin: 07/09/17 09:44 Dose: 400 mg Hydrochlorothiazide (Hydrodiuril) 25 mg PO DAILY [facility] Last Admin: 07/09/17 09:45 Dose: 25 mg Ceftriaxone Sodium 1 gm/ (Sodium Chloride) 100 mls @ 100 mls/hr IVPB DAILY [facility] PRN Reason: Protocol Stop: 07/18/17 18:01 Last Admin: 07/09/17 09:43 Dose: 100 mls/hr Lisinopril (Zestril) 20 mg PO DAILY [facility] Last Admin: 07/09/17 09:44 Dose: 20 mg Methylprednisolone (Solu-Medrol) 40 mg IVP Q6 [facility] Last Admin: 07/09/17 05:33 Dose: 40 mg Metoclopramide HCl (Reglan) 10 mg PO TID PRN PRN Reason: Nausea/Vomiting Morphine Sulfate (Morphine) 2 mg IVP Q8H PRN PRN Reason: Pain Pantoprazole Sodium (Protonix Ec Tab) 40 mg PO DAILY [facility] Last Admin: 07/09/17 09:44 Dose: 40 mg - Labs Labs: 07/09/17 06:52 07/09/17 06:52 PT 12.6 SECONDS (9.7-12.2) H 07/06/17 13:42 INR 1.1 07/06/17 13:42 APTT 23 SECONDS (21-34) 07/06/17 13:42 - Head Exam Head Exam: ATRAUMATIC - Eye Exam Eye Exam: Normal appearance - ENT Exam ENT Exam: Mucous Membranes Dry - Respiratory Exam Respiratory Exam: NORMAL BREATHING PATTERN - Cardiovascular Exam Cardiovascular Exam: +S1, +S2 - GI/Abdominal Exam GI & Abdominal Exam: Normal Bowel Sounds Assessment and Plan (1) Dyspnea Assessment & Plan: suspect secondary to lung mets awaiting biopsy results CT angio negative for PE Status: Acute (2) Metastatic cancer Assessment & Plan: ? metastatic breast cancer s/p biopsy Status: Acute (3) Breast cancer Assessment & Plan: f/u biopsy Status: Acute (4) Anemia Assessment & Plan: chronic disease Status: Acute
--- NOTE | 2017-07-09 15:36 | CP.PCM.PN ---
Subjective - Date & Time of Evaluation Date of Evaluation: 07/09/17 Time of Evaluation: 07:30 - Subjective Subjective: Patient had lung biopsy and portacath insertion yesterday. She reports that her breathing has not improved since admission but notes that she has not received nebullizer treatments since being admitted to the floors and thinks that it might help. Assessment and Plan: 1. Shortness of breath, secondary to lung metastasis - CXR 07/06: Right suprahilar mass and smaller lateral mid right mass correlate with CT 05/22 - CTA 07/06: pulmonary nodules evidence of metastatic lung disease, possible sclerotic changes of right clavicle - Dr. Darin Gibson consulted - biopsy 07/08, awaiting results - Saturating 95-100% on 2L NC - Procalcitonin 07/07: <0.05 - continue empiric azithromycin - montez cath placed - start duoenbs 2. Pulmonary embolism, low probability - stable RR,HR and saturation - D-dimer 735, likely elevated due to malignancy - CTA 07/06: no CT evidence of pulmonary embolism - LE Venous Doppler 07/06: no evidence of deep or superficial vein thrombosis of the LLE Objective - Vital Signs/Intake and Output Vital Signs (last 24 hours): Temp Pulse Resp BP Pulse Ox 98.2 F 80 20 151/85 H 97 07/09/17 07:00 07/09/17 07:00 07/09/17 07:00 07/09/17 07:00 07/09/17 07:00 Intake and Output: 07/09/17 07/09/17 06:59 18:59 Intake Total 940 460 Balance 940 460 - Medications Medications: Current Medications Anastrozole (Arimidex 1 Mg Tab) 1 mg PO DAILY [facility] Last Admin: 07/09/17 09:47 Dose: 1 mg Gabapentin (Neurontin) 400 mg PO TID [facility] Last Admin: 07/09/17 13:28 Dose: 400 mg Hydrochlorothiazide (Hydrodiuril) 25 mg PO DAILY [facility] Last Admin: 07/09/17 09:45 Dose: 25 mg Ceftriaxone Sodium 1 gm/ (Sodium Chloride) 100 mls @ 100 mls/hr IVPB DAILY [facility] PRN Reason: Protocol Stop: 07/18/17 18:01 Last Admin: 07/09/17 09:43 Dose: 100 mls/hr Lisinopril (Zestril) 20 mg PO DAILY [facility] Last Admin: 07/09/17 09:44 Dose: 20 mg Methylprednisolone (Solu-Medrol) 40 mg IVP Q6 [facility] Last Admin: 07/09/17 11:45 Dose: 40 mg Metoclopramide HCl (Reglan) 10 mg PO TID PRN PRN Reason: Nausea/Vomiting Morphine Sulfate (Morphine) 2 mg IVP Q8H PRN PRN Reason: Pain Pantoprazole Sodium (Protonix Ec Tab) 40 mg PO DAILY [facility] Last Admin: 07/09/17 09:44 Dose: 40 mg - Labs Labs: 07/09/17 06:52 07/09/17 06:52 PT 12.6 SECONDS (9.7-12.2) H 07/06/17 13:42 INR 1.1 07/06/17 13:42 APTT 23 SECONDS (21-34) 07/06/17 13:42
--- NOTE | 2017-07-09 16:42 | CP.PCM.PN ---
Subjective - Date & Time of Evaluation Date of Evaluation: 07/09/17 Time of Evaluation: 07:20 - Subjective Subjective: clinically same Objective - Vital Signs/Intake and Output Vital Signs (last 24 hours): Temp Pulse Resp BP Pulse Ox 98.6 F 63 20 121/76 99 07/09/17 16:13 07/09/17 16:13 07/09/17 16:13 07/09/17 16:13 07/09/17 16:13 Intake and Output: 07/09/17 07/09/17 06:59 18:59 Intake Total 940 460 Balance 940 460 - Medications Medications: Current Medications Albuterol/Ipratropium (Duoneb 3 Mg/0.5 Mg (3 Ml) Ud) 3 ml INH RQ6 [facility] Anastrozole (Arimidex 1 Mg Tab) 1 mg PO DAILY [facility] Last Admin: 07/09/17 09:47 Dose: 1 mg Gabapentin (Neurontin) 400 mg PO TID [facility] Last Admin: 07/09/17 13:28 Dose: 400 mg Hydrochlorothiazide (Hydrodiuril) 25 mg PO DAILY [facility] Last Admin: 07/09/17 09:45 Dose: 25 mg Ceftriaxone Sodium 1 gm/ (Sodium Chloride) 100 mls @ 100 mls/hr IVPB DAILY [facility] PRN Reason: Protocol Stop: 07/18/17 18:01 Last Admin: 07/09/17 09:43 Dose: 100 mls/hr Lisinopril (Zestril) 20 mg PO DAILY [facility] Last Admin: 07/09/17 09:44 Dose: 20 mg Methylprednisolone (Solu-Medrol) 40 mg IVP Q6 [facility] Last Admin: 07/09/17 11:45 Dose: 40 mg Metoclopramide HCl (Reglan) 10 mg PO TID PRN PRN Reason: Nausea/Vomiting Morphine Sulfate (Morphine) 2 mg IVP Q8H PRN PRN Reason: Pain Pantoprazole Sodium (Protonix Ec Tab) 40 mg PO DAILY [facility] Last Admin: 07/09/17 09:44 Dose: 40 mg - Labs Labs: 07/09/17 06:52 07/09/17 06:52 PT 12.6 SECONDS (9.7-12.2) H 07/06/17 13:42 INR 1.1 07/06/17 13:42 APTT 23 SECONDS (21-34) 07/06/17 13:42 - Constitutional Appears: Well - Head Exam Head Exam: ATRAUMATIC, NORMAL INSPECTION, NORMOCEPHALIC - Eye Exam Eye Exam: EOMI, Normal appearance, PERRL Pupil Exam: NORMAL ACCOMODATION, PERRL - ENT Exam ENT Exam: Mucous Membranes Moist, Normal Exam - Neck Exam Neck Exam: Full ROM, Normal Inspection. absent: Lymphadenopathy - Respiratory Exam Respiratory Exam: Decreased Breath Sounds - Cardiovascular Exam Cardiovascular Exam: REGULAR RHYTHM, +S1, +S2 - GI/Abdominal Exam GI & Abdominal Exam: Soft, Diminished Bowel Sounds - Rectal Exam Rectal Exam: Deferred Assessment and Plan (1) Anemia Status: Acute (2) Breast cancer genetic susceptibility Status: Acute (3) Dyspnea Status: Acute (4) Metastatic cancer Status: Acute (5) Breast cancer Status: Acute (6) Breast cancer in female Status: Acute (7) Bronchitis Status: Acute (8) Chest wall pain Status: Acute (9) Dyspnea Status: Acute (10) Edema of both legs Status: Acute (11) Leukopenia Status: Acute (12) Malaise and fatigue Status: Acute (13) Onychomycosis Status: Acute (14) Pneumonia Status: Acute (15) Swelling of right upper extremity Status: Acute (16) Vision blurred Status: Acute
[2017-07-09] MEDS: Albuterol-Ipratrop 3 mg / 0.5 (3 ml) UD INH SCH (19:30)
[2017-07-10] MEDS: MethylPREDNISolone 40 mg Vial IVP SCH ×5 (00:25→23:40)
[2017-07-10] MEDS: Albuterol-Ipratrop 3 mg / 0.5 (3 ml) UD INH SCH ×4 (01:36→19:09)
[2017-07-10 08:45] LABS: HEMOGLOBIN 11.3 g/dL (11.0-16.0); LYMPH # 0.5 K/uL (1.0-4.3); LYMPH % 5.6 % (20.0-40.0); MEAN CELL VOLUME 76.4 fL (81.0-99.0); MEAN CORPUSCULAR HEMOGLOBIN 24.9 pg (27.0-31.0); MEAN CORPUSCULAR HGB CONC 32.6 g/dL (33.0-37.0); MEAN PLATELET VOLUME 7.5 fL (7.2-11.7); MONO # 0.1 K/uL (0.0-0.8); MONO % 1.6 % (0.0-10.0); NEUT # 7.6 K/uL (1.8-7.0); NEUT % 92.8 % (50.0-75.0); NRBC % 0.1 % (0.0-2.0); PLATELET COUNT 356 K/uL (130-400); RBC 4.53 Mil/uL (3.80-5.20); RED CELL DISTRIBUTION WIDTH 15.9 % (11.5-14.5); WHITE BLOOD COUNT 8.2 K/uL (4.8-10.8)
[2017-07-10 09:03] LABS: ALB/GLOB RATIO 1.1 (1.0-2.1); ALBUMIN 4.1 g/dL (3.5-5.0); ALT/SGPT 16 U/L (9-52); AST/SGOT 21 U/L (14-36); BLOOD UREA NITROGEN 16 mg/dL (7-17); CALCIUM 9.6 mg/dl (8.6-10.4); GFR AFRICAN-AMERICAN > 60; GFR NON-AFRICAN AMERICAN > 60
[2017-07-10 09:36] LABS: BANDS 1 % (0-2); LYMPHOCYTE 7 % (20-40); MONOCYTE 2 % (0-10); NEUTROPHIL 90 % (50-75); PLATELET ESTIMATE NORMAL (NORMAL); TOTAL CELLS COUNTED 100
[2017-07-10 09:37] LABS: ANISOCYTOSIS SLIGHT; HYPOCHROMIC SLIGHT; POLYCHROMIC SLIGHT
[2017-07-10] MEDS: Pantoprazole 40 mg EC Tab PO SCH (09:58)
--- NOTE | 2017-07-10 17:59 | CP.PCM.PN ---
Subjective - Date & Time of Evaluation Date of Evaluation: 07/10/17 Time of Evaluation: 07:20 - Subjective Subjective: clinically same Objective - Vital Signs/Intake and Output Vital Signs (last 24 hours): Temp Pulse Resp BP Pulse Ox 97.4 F L 66 20 134/84 98 07/10/17 16:00 07/10/17 16:00 07/10/17 16:00 07/10/17 16:00 07/10/17 16:00 Intake and Output: 07/10/17 07/10/17 06:59 18:59 Intake Total 630 Balance 630 - Medications Medications: Current Medications Albuterol/Ipratropium (Duoneb 3 Mg/0.5 Mg (3 Ml) Ud) 3 ml INH RQ6 [facility] Last Admin: 07/10/17 13:27 Dose: 3 ml Anastrozole (Arimidex 1 Mg Tab) 1 mg PO DAILY [facility] Last Admin: 07/10/17 09:59 Dose: 1 mg Gabapentin (Neurontin) 400 mg PO TID [facility] Last Admin: 07/10/17 13:10 Dose: 400 mg Hydrochlorothiazide (Hydrodiuril) 25 mg PO DAILY [facility] Last Admin: 07/10/17 09:58 Dose: 25 mg Ceftriaxone Sodium 1 gm/ (Sodium Chloride) 100 mls @ 100 mls/hr IVPB DAILY [facility] PRN Reason: Protocol Stop: 07/18/17 18:01 Last Admin: 07/10/17 09:53 Dose: 100 mls/hr Lisinopril (Zestril) 20 mg PO DAILY [facility] Last Admin: 07/10/17 09:59 Dose: 20 mg Methylprednisolone (Solu-Medrol) 40 mg IVP Q6 [facility] Last Admin: 07/10/17 12:18 Dose: 40 mg Metoclopramide HCl (Reglan) 10 mg PO TID PRN PRN Reason: Nausea/Vomiting Morphine Sulfate (Morphine) 2 mg IVP Q8H PRN PRN Reason: Pain Pantoprazole Sodium (Protonix Ec Tab) 40 mg PO DAILY [facility] Last Admin: 07/10/17 09:58 Dose: 40 mg - Labs Labs: 07/10/17 08:26 07/10/17 08:26 PT 12.6 SECONDS (9.7-12.2) H 07/06/17 13:42 INR 1.1 07/06/17 13:42 APTT 23 SECONDS (21-34) 07/06/17 13:42 - Constitutional Appears: Well - Head Exam Head Exam: ATRAUMATIC, NORMAL INSPECTION, NORMOCEPHALIC - Eye Exam Eye Exam: EOMI, Normal appearance, PERRL Pupil Exam: NORMAL ACCOMODATION, PERRL - ENT Exam ENT Exam: Mucous Membranes Moist, Normal Exam - Neck Exam Neck Exam: Full ROM, Normal Inspection. absent: Lymphadenopathy - Respiratory Exam Respiratory Exam: Decreased Breath Sounds - Cardiovascular Exam Cardiovascular Exam: REGULAR RHYTHM, +S1, +S2 - GI/Abdominal Exam GI & Abdominal Exam: Soft, Diminished Bowel Sounds - Rectal Exam Rectal Exam: Deferred Assessment and Plan (1) Anemia Status: Acute (2) Breast cancer genetic susceptibility Status: Acute (3) Dyspnea Status: Acute (4) Metastatic cancer Status: Acute (5) Breast cancer Status: Acute (6) Breast cancer in female Status: Acute (7) Bronchitis Status: Acute (8) Chest wall pain Status: Acute (9) Dyspnea Status: Acute (10) Edema of both legs Status: Acute (11) Leukopenia Status: Acute (12) Malaise and fatigue Status: Acute (13) Onychomycosis Status: Acute (14) Pneumonia Status: Acute (15) Swelling of right upper extremity Status: Acute (16) Vision blurred Status: Acute
[2017-07-11] MEDS: Albuterol-Ipratrop 3 mg / 0.5 (3 ml) UD INH SCH ×4 (01:14→19:29)
--- NOTE | 2017-07-11 02:49 | CP.PCM.PN ---
Subjective - Date & Time of Evaluation Date of Evaluation: 07/10/17 Time of Evaluation: 19:00 - Subjective Subjective: Feels weak in her legs when ambulating. Objective - Vital Signs/Intake and Output Vital Signs (last 24 hours): Temp Pulse Resp BP Pulse Ox 97.7 F 71 20 115/75 98 07/11/17 00:00 07/11/17 00:00 07/11/17 00:00 07/11/17 00:00 07/11/17 00:00 Intake and Output: 07/10/17 07/11/17 18:59 06:59 Intake Total 300 Balance 300 - Medications Medications: Current Medications Albuterol/Ipratropium (Duoneb 3 Mg/0.5 Mg (3 Ml) Ud) 3 ml INH RQ6 [facility] Last Admin: 07/11/17 01:14 Dose: Not Given Anastrozole (Arimidex 1 Mg Tab) 1 mg PO DAILY [facility] Last Admin: 07/10/17 09:59 Dose: 1 mg Gabapentin (Neurontin) 400 mg PO TID [facility] Last Admin: 07/10/17 18:32 Dose: 400 mg Hydrochlorothiazide (Hydrodiuril) 25 mg PO DAILY [facility] Last Admin: 07/10/17 09:58 Dose: 25 mg Ceftriaxone Sodium 1 gm/ (Sodium Chloride) 100 mls @ 100 mls/hr IVPB DAILY [facility] PRN Reason: Protocol Stop: 07/18/17 18:01 Last Admin: 07/10/17 09:53 Dose: 100 mls/hr Lisinopril (Zestril) 20 mg PO DAILY [facility] Last Admin: 07/10/17 09:59 Dose: 20 mg Methylprednisolone (Solu-Medrol) 40 mg IVP Q6 [facility] Last Admin: 07/10/17 23:40 Dose: 40 mg Metoclopramide HCl (Reglan) 10 mg PO TID PRN PRN Reason: Nausea/Vomiting Morphine Sulfate (Morphine) 2 mg IVP Q8H PRN PRN Reason: Pain Pantoprazole Sodium (Protonix Ec Tab) 40 mg PO DAILY [facility] Last Admin: 07/10/17 09:58 Dose: 40 mg - Labs Labs: 07/10/17 08:26 07/10/17 08:26 PT 12.6 SECONDS (9.7-12.2) H 07/06/17 13:42 INR 1.1 07/06/17 13:42 APTT 23 SECONDS (21-34) 07/06/17 13:42 - Head Exam Head Exam: ATRAUMATIC - Eye Exam Eye Exam: Normal appearance - ENT Exam ENT Exam: Mucous Membranes Dry - Respiratory Exam Respiratory Exam: NORMAL BREATHING PATTERN - Cardiovascular Exam Cardiovascular Exam: +S1, +S2 - GI/Abdominal Exam GI & Abdominal Exam: Normal Bowel Sounds Assessment and Plan (1) Dyspnea Assessment & Plan: likely secondary to metastasis s/p biopsy Status: Acute (2) Metastatic cancer Assessment & Plan: f/u biopsy Status: Acute (3) Breast cancer Assessment & Plan: rule out metastasis Status: Acute (4) Anemia Assessment & Plan: chronic disease Status: Acute
[2017-07-11] MEDS: MethylPREDNISolone 40 mg Vial IVP SCH ×2 (05:57→21:40)
[2017-07-11 07:56] LABS: BASO % 0.1 % (0.0-2.0); HEMOGLOBIN 10.9 g/dL (11.0-16.0); LYMPH # 0.6 K/uL (1.0-4.3); LYMPH % 9.4 % (20.0-40.0); MEAN CELL VOLUME 75.8 fL (81.0-99.0); MEAN CORPUSCULAR HEMOGLOBIN 24.8 pg (27.0-31.0); MEAN CORPUSCULAR HGB CONC 32.7 g/dL (33.0-37.0); MEAN PLATELET VOLUME 7.5 fL (7.2-11.7); MONO # 0.3 K/uL (0.0-0.8); MONO % 4.9 % (0.0-10.0); NEUT # 5.9 K/uL (1.8-7.0); NEUT % 85.6 % (50.0-75.0); NRBC % 0.2 % (0.0-2.0); PLATELET COUNT 316 K/uL (130-400); RBC 4.39 Mil/uL (3.80-5.20); RED CELL DISTRIBUTION WIDTH 15.9 % (11.5-14.5); WHITE BLOOD COUNT 6.9 K/uL (4.8-10.8)
[2017-07-11 08:10] LABS: ALBUMIN 3.6 g/dL (3.5-5.0); ALT/SGPT 18 U/L (9-52); AST/SGOT 18 U/L (14-36); BLOOD UREA NITROGEN 21 mg/dL (7-17); CALCIUM 9.3 mg/dl (8.6-10.4); GFR AFRICAN-AMERICAN > 60; GFR NON-AFRICAN AMERICAN > 60
[2017-07-11 08:53] LABS: LYMPHOCYTE 9 % (20-40); MONOCYTE 5 % (0-10); NEUTROPHIL 86 % (50-75); TOTAL CELLS COUNTED 100
[2017-07-11 08:54] LABS: ANISOCYTOSIS SLIGHT; HYPOCHROMIC SLIGHT; PLATELET ESTIMATE NORMAL (NORMAL); POLYCHROMIC SLIGHT
[2017-07-11 08:55] LABS: LARGE PLATELETS PRESENT
[2017-07-11] MEDS: Pantoprazole 40 mg EC Tab PO SCH (09:06)
--- NOTE | 2017-07-11 09:41 | CP.PCM.PN ---
Subjective - Date & Time of Evaluation Date of Evaluation: 07/11/17 Time of Evaluation: 07:00 - Subjective Subjective: patient seen and examined Breathing and cough much improved Still complaining of wheezing Status post lung biopsy Continue nebulizer treatment Taper steroids Objective - Vital Signs/Intake and Output Vital Signs (last 24 hours): Temp Pulse Resp BP Pulse Ox 97.7 F 71 20 115/75 98 07/11/17 00:00 07/11/17 00:00 07/11/17 00:00 07/11/17 00:00 07/11/17 00:00 Intake and Output: 07/11/17 07/11/17 06:59 18:59 Intake Total 300 Balance 300 - Medications Medications: Current Medications Albuterol/Ipratropium (Duoneb 3 Mg/0.5 Mg (3 Ml) Ud) 3 ml INH RQ6 [facility] Last Admin: 07/11/17 07:10 Dose: 3 ml Anastrozole (Arimidex 1 Mg Tab) 1 mg PO DAILY [facility] Last Admin: 07/11/17 09:09 Dose: 1 mg Gabapentin (Neurontin) 400 mg PO TID [facility] Last Admin: 07/11/17 09:05 Dose: 400 mg Hydrochlorothiazide (Hydrodiuril) 25 mg PO DAILY [facility] Last Admin: 07/11/17 09:07 Dose: Not Given Ceftriaxone Sodium 1 gm/ (Sodium Chloride) 100 mls @ 100 mls/hr IVPB DAILY [facility] PRN Reason: Protocol Stop: 07/18/17 18:01 Last Admin: 07/11/17 09:08 Dose: 100 mls/hr Lisinopril (Zestril) 20 mg PO DAILY [facility] Last Admin: 07/11/17 09:06 Dose: Not Given Methylprednisolone (Solu-Medrol) 40 mg IVP Q6 [facility] Last Admin: 07/11/17 05:57 Dose: 40 mg Metoclopramide HCl (Reglan) 10 mg PO TID PRN PRN Reason: Nausea/Vomiting Morphine Sulfate (Morphine) 2 mg IVP Q8H PRN PRN Reason: Pain Last Admin: 07/11/17 09:15 Dose: 2 mg Pantoprazole Sodium (Protonix Ec Tab) 40 mg PO DAILY [facility] Last Admin: 07/11/17 09:06 Dose: 40 mg - Labs Labs: 07/11/17 07:40 07/11/17 07:40 PT 12.6 SECONDS (9.7-12.2) H 07/06/17 13:42 INR 1.1 07/06/17 13:42 APTT 23 SECONDS (21-34) 07/06/17 13:42
--- NOTE | 2017-07-11 15:02 | CP.PCM.PN ---
Subjective - Date & Time of Evaluation Date of Evaluation: 07/11/17 Time of Evaluation: 07:20 - Subjective Subjective: clinically same Objective - Vital Signs/Intake and Output Vital Signs (last 24 hours): Temp Pulse Resp BP Pulse Ox 97.9 F 110 H 20 162/85 H 95 07/11/17 08:00 07/11/17 08:00 07/11/17 08:00 07/11/17 08:00 07/11/17 08:00 Intake and Output: 07/11/17 07/11/17 06:59 18:59 Intake Total 300 Balance 300 - Medications Medications: Current Medications Albuterol/Ipratropium (Duoneb 3 Mg/0.5 Mg (3 Ml) Ud) 3 ml INH RQ6 [facility] Last Admin: 07/11/17 13:10 Dose: 3 ml Anastrozole (Arimidex 1 Mg Tab) 1 mg PO DAILY [facility] Last Admin: 07/11/17 09:09 Dose: 1 mg Gabapentin (Neurontin) 400 mg PO TID [facility] Last Admin: 07/11/17 14:00 Dose: 400 mg Hydrochlorothiazide (Hydrodiuril) 25 mg PO DAILY [facility] Last Admin: 07/11/17 09:07 Dose: Not Given Ceftriaxone Sodium 1 gm/ (Sodium Chloride) 100 mls @ 100 mls/hr IVPB DAILY [facility] PRN Reason: Protocol Stop: 07/18/17 18:01 Last Admin: 07/11/17 09:08 Dose: 100 mls/hr Lisinopril (Zestril) 20 mg PO DAILY [facility] Last Admin: 07/11/17 09:06 Dose: Not Given Methylprednisolone (Solu-Medrol) 40 mg IVP Q12 [facility] Metoclopramide HCl (Reglan) 10 mg PO TID PRN PRN Reason: Nausea/Vomiting Morphine Sulfate (Morphine) 2 mg IVP Q8H PRN PRN Reason: Pain Last Admin: 07/11/17 09:15 Dose: 2 mg Pantoprazole Sodium (Protonix Ec Tab) 40 mg PO DAILY [facility] Last Admin: 07/11/17 09:06 Dose: 40 mg - Labs Labs: 07/11/17 07:40 07/11/17 07:40 PT 12.6 SECONDS (9.7-12.2) H 07/06/17 13:42 INR 1.1 07/06/17 13:42 APTT 23 SECONDS (21-34) 07/06/17 13:42 - Constitutional Appears: Well - Head Exam Head Exam: ATRAUMATIC, NORMAL INSPECTION, NORMOCEPHALIC - Eye Exam Eye Exam: EOMI, Normal appearance, PERRL Pupil Exam: NORMAL ACCOMODATION, PERRL - ENT Exam ENT Exam: Mucous Membranes Moist, Normal Exam - Neck Exam Neck Exam: Full ROM, Normal Inspection. absent: Lymphadenopathy - Respiratory Exam Respiratory Exam: Decreased Breath Sounds - Cardiovascular Exam Cardiovascular Exam: REGULAR RHYTHM, +S1, +S2 - GI/Abdominal Exam GI & Abdominal Exam: Soft, Diminished Bowel Sounds - Rectal Exam Rectal Exam: Deferred Assessment and Plan (1) Anemia Status: Acute (2) Breast cancer genetic susceptibility Status: Acute (3) Dyspnea Status: Acute (4) Metastatic cancer Status: Acute (5) Breast cancer Status: Acute (6) Breast cancer in female Status: Acute (7) Bronchitis Status: Acute (8) Chest wall pain Status: Acute (9) Dyspnea Status: Acute (10) Edema of both legs Status: Acute (11) Leukopenia Status: Acute (12) Malaise and fatigue Status: Acute (13) Onychomycosis Status: Acute (14) Pneumonia Status: Acute (15) Swelling of right upper extremity Status: Acute (16) Vision blurred Status: Acute
--- NOTE | 2017-07-11 22:14 | CP.PCM.PN ---
Subjective - Date & Time of Evaluation Date of Evaluation: 07/11/17 Time of Evaluation: 16:00 - Subjective Subjective: Has shoulder pain. Objective - Vital Signs/Intake and Output Vital Signs (last 24 hours): Temp Pulse Resp BP Pulse Ox 97.3 F L 71 20 168/90 H 99 07/11/17 16:00 07/11/17 16:00 07/11/17 16:00 07/11/17 16:00 07/11/17 16:00 - Medications Medications: Current Medications Albuterol/Ipratropium (Duoneb 3 Mg/0.5 Mg (3 Ml) Ud) 3 ml INH RQ6 [facility] Last Admin: 07/11/17 19:29 Dose: 3 ml Anastrozole (Arimidex 1 Mg Tab) 1 mg PO DAILY [facility] Last Admin: 07/11/17 09:09 Dose: 1 mg Gabapentin (Neurontin) 400 mg PO TID [facility] Last Admin: 07/11/17 18:20 Dose: 400 mg Hydrochlorothiazide (Hydrodiuril) 25 mg PO DAILY [facility] Last Admin: 07/11/17 09:07 Dose: Not Given Ceftriaxone Sodium 1 gm/ (Sodium Chloride) 100 mls @ 100 mls/hr IVPB DAILY [facility] PRN Reason: Protocol Stop: 07/18/17 18:01 Last Admin: 07/11/17 09:08 Dose: 100 mls/hr Lisinopril (Zestril) 20 mg PO DAILY [facility] Last Admin: 07/11/17 09:06 Dose: Not Given Methylprednisolone (Solu-Medrol) 40 mg IVP Q12 [facility] Last Admin: 07/11/17 21:40 Dose: 40 mg Metoclopramide HCl (Reglan) 10 mg PO TID PRN PRN Reason: Nausea/Vomiting Morphine Sulfate (Morphine) 2 mg IVP Q8H PRN PRN Reason: Pain Last Admin: 07/11/17 09:15 Dose: 2 mg Pantoprazole Sodium (Protonix Ec Tab) 40 mg PO DAILY [facility] Last Admin: 07/11/17 09:06 Dose: 40 mg - Labs Labs: 07/11/17 07:40 07/11/17 07:40 PT 12.6 SECONDS (9.7-12.2) H 07/06/17 13:42 INR 1.1 07/06/17 13:42 APTT 23 SECONDS (21-34) 07/06/17 13:42 - Head Exam Head Exam: ATRAUMATIC - Eye Exam Eye Exam: Normal appearance - ENT Exam ENT Exam: Mucous Membranes Dry - Respiratory Exam Respiratory Exam: NORMAL BREATHING PATTERN - Cardiovascular Exam Cardiovascular Exam: +S1, +S2 - GI/Abdominal Exam GI & Abdominal Exam: Normal Bowel Sounds Assessment and Plan (1) Dyspnea Assessment & Plan: likely secondary to lung mets s/p biopsy f/u path Status: Acute (2) Metastatic cancer Assessment & Plan: s/p biopsy Status: Acute (3) Breast cancer Assessment & Plan: ?metastatic disease Status: Acute (4) Anemia Assessment & Plan: chronic disease Status: Acute
[2017-07-12] MEDS: Albuterol-Ipratrop 3 mg / 0.5 (3 ml) UD INH SCH ×4 (01:29→19:14)
[2017-07-12 06:17] LABS: BASO % 0.3 % (0.0-2.0); HEMOGLOBIN 11.6 g/dL (11.0-16.0); LYMPH # 0.7 K/uL (1.0-4.3); MEAN CELL VOLUME 75.8 fL (81.0-99.0); MEAN CORPUSCULAR HEMOGLOBIN 24.7 pg (27.0-31.0); MEAN CORPUSCULAR HGB CONC 32.6 g/dL (33.0-37.0); MEAN PLATELET VOLUME 7.4 fL (7.2-11.7); MONO # 0.4 K/uL (0.0-0.8); MONO % 4.2 % (0.0-10.0); NEUT # 8.4 K/uL (1.8-7.0); NEUT % 88.5 % (50.0-75.0); NRBC % 0.1 % (0.0-2.0); PLATELET COUNT 306 K/uL (130-400); RED CELL DISTRIBUTION WIDTH 15.9 % (11.5-14.5); WHITE BLOOD COUNT 9.5 K/uL (4.8-10.8)
[2017-07-12 06:38] LABS: ALB/GLOB RATIO 1.1 (1.0-2.1); ALBUMIN 3.6 g/dL (3.5-5.0); ALT/SGPT 25 U/L (9-52); AST/SGOT 36 U/L (14-36); BLOOD UREA NITROGEN 20 mg/dL (7-17); CALCIUM 9.3 mg/dl (8.6-10.4); GFR AFRICAN-AMERICAN > 60; GFR NON-AFRICAN AMERICAN > 60
[2017-07-12 08:26] LABS: LYMPHOCYTE 13 % (20-40); MONOCYTE 3 % (0-10); NEUTROPHIL 84 % (50-75); PLATELET ESTIMATE NORMAL (NORMAL); TOTAL CELLS COUNTED 100
[2017-07-12 08:27] LABS: ANISOCYTOSIS SLIGHT; HYPOCHROMIC SLIGHT
[2017-07-12 08:28] LABS: MICROCYTOSIS SLIGHT; POLYCHROMIC SLIGHT
[2017-07-12] MEDS: Pantoprazole 40 mg EC Tab PO SCH (09:58)
[2017-07-12] MEDS: MethylPREDNISolone 40 mg Vial IVP SCH ×2 (09:58→22:23)
--- NOTE | 2017-07-12 11:27 | CP.PCM.PN ---
Subjective - Date & Time of Evaluation Date of Evaluation: 07/12/17 Time of Evaluation: 11:21 - Subjective Subjective: PGY [address] Mitchell Pt seen and examined at bedside. No acute events overnight. Pt today is c/o left shoulder pain with movement that has been ongoing for a few months. Patient denies having any CP, SOB, abd pain, N/V/D/C, F/C. Pt also c/o left lower quadrant abdominal pain on the skin with palpation. Patient states that there has been a painful nodule present in that location for about 2 months. Denies having any drainage from the nodule. patient denies having any changes in bowel movements since the nodule has been present. Objective - Vital Signs/Intake and Output Vital Signs (last 24 hours): Temp Pulse Resp BP Pulse Ox 97.7 F 79 20 143/84 100 07/12/17 07:46 07/12/17 07:46 07/12/17 07:46 07/12/17 07:46 07/12/17 07:46 Intake and Output: 07/12/17 07/12/17 06:59 18:59 Intake Total 120 Balance 120 - Medications Medications: Current Medications Albuterol/Ipratropium (Duoneb 3 Mg/0.5 Mg (3 Ml) Ud) 3 ml INH RQ6 [facility] Last Admin: 07/12/17 07:10 Dose: 3 ml Anastrozole (Arimidex 1 Mg Tab) 1 mg PO DAILY [facility] Last Admin: 07/12/17 10:08 Dose: 1 mg Gabapentin (Neurontin) 400 mg PO TID [facility] Last Admin: 07/12/17 09:59 Dose: 400 mg Hydrochlorothiazide (Hydrodiuril) 25 mg PO DAILY [facility] Last Admin: 07/12/17 09:58 Dose: 25 mg Ceftriaxone Sodium 1 gm/ (Sodium Chloride) 100 mls @ 100 mls/hr IVPB DAILY [facility] PRN Reason: Protocol Stop: 07/18/17 18:01 Last Admin: 07/12/17 09:57 Dose: 100 mls/hr Lisinopril (Zestril) 20 mg PO DAILY [facility] Last Admin: 07/12/17 10:02 Dose: 20 mg Methylprednisolone (Solu-Medrol) 40 mg IVP Q12 [facility] Last Admin: 07/12/17 09:58 Dose: 40 mg Metoclopramide HCl (Reglan) 10 mg PO TID PRN PRN Reason: Nausea/Vomiting Morphine Sulfate (Morphine) 2 mg IVP Q8H PRN PRN Reason: Pain Last Admin: 07/11/17 09:15 Dose: 2 mg Pantoprazole Sodium (Protonix Ec Tab) 40 mg PO DAILY [facility] Last Admin: 07/12/17 09:58 Dose: 40 mg - Labs Labs: 07/12/17 06:09 07/12/17 06:09 PT 12.6 SECONDS (9.7-12.2) H 07/06/17 13:42 INR 1.1 07/06/17 13:42 APTT 23 SECONDS (21-34) 07/06/17 13:42 - Constitutional Appears: Non-toxic, No Acute Distress - Head Exam Head Exam: ATRAUMATIC - ENT Exam ENT Exam: Mucous Membranes Moist - Respiratory Exam Respiratory Exam: Clear to Ausculation Bilateral. absent: Rales, Rhonchi, Wheezes - Cardiovascular Exam Cardiovascular Exam: REGULAR RHYTHM, +S1, +S2. absent: Gallop, Rubs, Murmur - GI/Abdominal Exam GI & Abdominal Exam: Soft, Normal Bowel Sounds. absent: Distended, Firm, Guarding, Rigid, Tenderness Additional comments: small indurated nodule on left lower quadrant on abdomen under fat fold that is tender to palpation. No erythema or drainage noted - Extremities Exam Extremities Exam: absent: Pedal Edema, Tenderness - Neurological Exam Neurological Exam: Alert, Awake, Oriented x3 - Psychiatric Exam Psychiatric exam: Normal Affect, Normal Mood - Skin Skin Exam: Dry, Intact, Normal Color, Warm Assessment and Plan - Assessment and Plan (Free Text) Assessment: Shortness of breath -Likely secondary to lung CA metastasis -Pulmonary consulted, Dr. Tasi help appreciated -CXR /: Right suprahilar mass and smaller lateral mid right mass (see report) -CTA 07/06: No PE seen. pulmonary nodules evidence of metastatic lung disease, possible sclerotic changes of right clavicle (see report) -CXR 07/08: small right pneumothorax -CXR 07/09: No obvious pneumothorax. Mild venous congestion (see report) -Elevated D dimer on admission likely due to the met ca. CTA of chest and LE US negative -Solumedrol 40mg IV Q6 -Duoneb 3ml INH RO6 - Continue Rocephin IV Metastatic breast cancer -heme onc consulted, Dr. Gibson help appreciated -anastrazole 1 mg po daily -Morphine 2mg IV Q8 PRN for pain -Left chest port a cath replaced -Pending left lung biopsy results hx of HTN -continue lisinopril daily -continue HCTZ daily hx of hypokalemia -Stable -continue supplementation with potassium chloride daily -will continue to monitor Left shoulder pain Left shoulder x ray showed shoulder arthrosis GI/DVT ppx -Alteplase -protonix Dispo: planning for [place] discussed with Dr. Nate Mitchell; all management as per Dr. Nate Mitchell
--- NOTE | 2017-07-12 13:34 | CP.PCM.PN ---
Subjective - Date & Time of Evaluation Date of Evaluation: 07/12/17 Time of Evaluation: 07:00 - Subjective Subjective: clinically same Objective - Vital Signs/Intake and Output Vital Signs (last 24 hours): Temp Pulse Resp BP Pulse Ox 97.7 F 79 20 143/84 100 07/12/17 07:46 07/12/17 07:46 07/12/17 07:46 07/12/17 07:46 07/12/17 07:46 Intake and Output: 07/12/17 07/12/17 06:59 18:59 Intake Total 120 Balance 120 - Medications Medications: Current Medications Albuterol/Ipratropium (Duoneb 3 Mg/0.5 Mg (3 Ml) Ud) 3 ml INH RQ6 [facility] Last Admin: 07/12/17 12:45 Dose: 3 ml Anastrozole (Arimidex 1 Mg Tab) 1 mg PO DAILY [facility] Last Admin: 07/12/17 10:08 Dose: 1 mg Gabapentin (Neurontin) 400 mg PO TID [facility] Last Admin: 07/12/17 09:59 Dose: 400 mg Hydrochlorothiazide (Hydrodiuril) 25 mg PO DAILY [facility] Last Admin: 07/12/17 09:58 Dose: 25 mg Ceftriaxone Sodium 1 gm/ (Sodium Chloride) 100 mls @ 100 mls/hr IVPB DAILY [facility] PRN Reason: Protocol Stop: 07/18/17 18:01 Last Admin: 07/12/17 09:57 Dose: 100 mls/hr Lisinopril (Zestril) 20 mg PO DAILY [facility] Last Admin: 07/12/17 10:02 Dose: 20 mg Methylprednisolone (Solu-Medrol) 40 mg IVP Q12 [facility] Last Admin: 07/12/17 09:58 Dose: 40 mg Metoclopramide HCl (Reglan) 10 mg PO TID PRN PRN Reason: Nausea/Vomiting Morphine Sulfate (Morphine) 2 mg IVP Q8H PRN PRN Reason: Pain Last Admin: 07/11/17 09:15 Dose: 2 mg Pantoprazole Sodium (Protonix Ec Tab) 40 mg PO DAILY [facility] Last Admin: 07/12/17 09:58 Dose: 40 mg - Labs Labs: 07/12/17 06:09 07/12/17 06:09 PT 12.6 SECONDS (9.7-12.2) H 07/06/17 13:42 INR 1.1 07/06/17 13:42 APTT 23 SECONDS (21-34) 07/06/17 13:42 - Constitutional Appears: Well - Head Exam Head Exam: ATRAUMATIC, NORMAL INSPECTION, NORMOCEPHALIC - Eye Exam Eye Exam: EOMI, Normal appearance, PERRL Pupil Exam: NORMAL ACCOMODATION, PERRL - ENT Exam ENT Exam: Mucous Membranes Moist, Normal Exam - Neck Exam Neck Exam: Full ROM, Normal Inspection. absent: Lymphadenopathy - Respiratory Exam Respiratory Exam: Decreased Breath Sounds - Cardiovascular Exam Cardiovascular Exam: REGULAR RHYTHM, +S1, +S2 - GI/Abdominal Exam GI & Abdominal Exam: Soft, Diminished Bowel Sounds - Rectal Exam Rectal Exam: Deferred Assessment and Plan (1) Anemia Status: Acute (2) Breast cancer genetic susceptibility Status: Acute (3) Dyspnea Status: Acute (4) Metastatic cancer Status: Acute (5) Breast cancer Status: Acute (6) Breast cancer in female Status: Acute (7) Bronchitis Status: Acute (8) Chest wall pain Status: Acute (9) Dyspnea Status: Acute (10) Edema of both legs Status: Acute (11) Leukopenia Status: Acute (12) Malaise and fatigue Status: Acute (13) Onychomycosis Status: Acute (14) Pneumonia Status: Acute (15) Swelling of right upper extremity Status: Acute (16) Vision blurred Status: Acute
--- NOTE | 2017-07-12 18:28 | CP.PCM.PN ---
Subjective - Date & Time of Evaluation Date of Evaluation: 07/12/17 Time of Evaluation: 11:50 - Subjective Subjective: Patient seen and examined at bedside receiving nebullizer treatment. She reports that her shortness of breath and cough are better. Patient reports left upper extremity pain from her shoulder to her elbow, advised patient to tell her primary team this as well. Assessment and Plan: 1. Shortness of breath, secondary to lung metastasis - CXR 07/06: Right suprahilar mass and smaller lateral mid right mass correlate with CT 05/22 - CTA 07/06: pulmonary nodules evidence of metastatic lung disease, possible sclerotic changes of right clavicle - Dr. Darin Gibson consulted - biopsy 07/09, awaiting results - Saturating 95-100% on 2L NC - Procalcitonin 07/07: <0.05 - ceftriaxone - montez cath placed 07/09 - continue duoenbs - continue to taper steroids 2. Pulmonary embolism, low probability - stable RR,HR and saturation - D-dimer 735, likely elevated due to malignancy - CTA 07/06: no CT evidence of pulmonary embolism - LE Venous Doppler 07/06: no evidence of deep or superficial vein thrombosis of the LLE - Lovenox 60mg SC QD Objective - Vital Signs/Intake and Output Vital Signs (last 24 hours): Temp Pulse Resp BP Pulse Ox 97.9 F 63 20 125/76 99 07/12/17 15:15 07/12/17 15:15 07/12/17 15:15 07/12/17 15:15 07/12/17 15:15 Intake and Output: 07/12/17 07/12/17 06:59 18:59 Intake Total 120 580 Balance 120 580 - Medications Medications: Current Medications Albuterol/Ipratropium (Duoneb 3 Mg/0.5 Mg (3 Ml) Ud) 3 ml INH RQ6 [facility] Last Admin: 07/12/17 12:45 Dose: 3 ml Anastrozole (Arimidex 1 Mg Tab) 1 mg PO DAILY [facility] Last Admin: 07/12/17 10:08 Dose: 1 mg Gabapentin (Neurontin) 400 mg PO TID [facility] Last Admin: 07/12/17 18:08 Dose: 400 mg Hydrochlorothiazide (Hydrodiuril) 25 mg PO DAILY [facility] Last Admin: 07/12/17 09:58 Dose: 25 mg Ceftriaxone Sodium 1 gm/ (Sodium Chloride) 100 mls @ 100 mls/hr IVPB DAILY [facility] PRN Reason: Protocol Stop: 07/18/17 18:01 Last Admin: 07/12/17 09:57 Dose: 100 mls/hr Lisinopril (Zestril) 20 mg PO DAILY [facility] Last Admin: 07/12/17 10:02 Dose: 20 mg Methylprednisolone (Solu-Medrol) 40 mg IVP Q12 [facility] Last Admin: 07/12/17 09:58 Dose: 40 mg Metoclopramide HCl (Reglan) 10 mg PO TID PRN PRN Reason: Nausea/Vomiting Morphine Sulfate (Morphine) 2 mg IVP Q8H PRN PRN Reason: Pain Last Admin: 07/11/17 09:15 Dose: 2 mg Pantoprazole Sodium (Protonix Ec Tab) 40 mg PO DAILY [facility] Last Admin: 07/12/17 09:58 Dose: 40 mg - Labs Labs: 07/12/17 06:09 07/12/17 06:09 PT 12.6 SECONDS (9.7-12.2) H 07/06/17 13:42 INR 1.1 07/06/17 13:42 APTT 23 SECONDS (21-34) 07/06/17 13:42
[2017-07-13] MEDS: Albuterol-Ipratrop 3 mg / 0.5 (3 ml) UD INH SCH ×3 (01:45→13:16)
[2017-07-13 06:24] LABS: BASO % 0.1 % (0.0-2.0); HEMOGLOBIN 11.1 g/dL (11.0-16.0); LYMPH # 0.5 K/uL (1.0-4.3); LYMPH % 5.1 % (20.0-40.0); MEAN CELL VOLUME 75.9 fL (81.0-99.0); MEAN CORPUSCULAR HEMOGLOBIN 24.3 pg (27.0-31.0); MEAN PLATELET VOLUME 7.5 fL (7.2-11.7); MONO # 0.4 K/uL (0.0-0.8); MONO % 4.1 % (0.0-10.0); NEUT # 9.7 K/uL (1.8-7.0); NEUT % 90.7 % (50.0-75.0); NRBC % 0.1 % (0.0-2.0); PLATELET COUNT 287 K/uL (130-400); RBC 4.57 Mil/uL (3.80-5.20); RED CELL DISTRIBUTION WIDTH 15.7 % (11.5-14.5); WHITE BLOOD COUNT 10.7 K/uL (4.8-10.8)
[2017-07-13 06:52] LABS: ALBUMIN 3.4 g/dL (3.5-5.0); ALT/SGPT 24 U/L (9-52); AST/SGOT 22 U/L (14-36); BLOOD UREA NITROGEN 23 mg/dL (7-17); GFR AFRICAN-AMERICAN > 60; GFR NON-AFRICAN AMERICAN > 60
[2017-07-13 08:35] LABS: ANISOCYTOSIS SLIGHT; HYPOCHROMIC SLIGHT; LYMPHOCYTE 6 % (20-40); MONOCYTE 4 % (0-10); NEUTROPHIL 90 % (50-75); PLATELET ESTIMATE NORMAL (NORMAL); POIKILOCYTOSIS SLIGHT; TOTAL CELLS COUNTED 100
[2017-07-13] MEDS: MethylPREDNISolone 40 mg Vial IVP SCH (09:41)
[2017-07-13] MEDS: Pantoprazole 40 mg EC Tab PO SCH (09:43)
--- NOTE | 2017-07-13 11:04 | CP.PCM.PN ---
Objective - Vital Signs/Intake and Output Vital Signs (last 24 hours): Temp Pulse Resp BP Pulse Ox 98 F 55 L 20 121/80 100 07/13/17 07:31 07/13/17 07:31 07/13/17 07:31 07/13/17 07:31 07/13/17 07:31 Intake and Output: 07/13/17 07/13/17 06:59 18:59 Intake Total 300 Balance 300 - Medications Medications: Current Medications Albuterol/Ipratropium (Duoneb 3 Mg/0.5 Mg (3 Ml) Ud) 3 ml INH RQ6 [facility] Last Admin: 07/13/17 07:53 Dose: 3 ml Anastrozole (Arimidex 1 Mg Tab) 1 mg PO DAILY [facility] Last Admin: 07/13/17 09:42 Dose: 1 mg Gabapentin (Neurontin) 400 mg PO TID [facility] Last Admin: 07/13/17 09:43 Dose: 400 mg Hydrochlorothiazide (Hydrodiuril) 25 mg PO DAILY [facility] Last Admin: 07/13/17 09:42 Dose: 25 mg Ceftriaxone Sodium 1 gm/ (Sodium Chloride) 100 mls @ 100 mls/hr IVPB DAILY [facility] PRN Reason: Protocol Stop: 07/18/17 18:01 Last Admin: 07/13/17 10:03 Dose: 100 mls/hr Lisinopril (Zestril) 20 mg PO DAILY [facility] Last Admin: 07/13/17 09:42 Dose: 20 mg Methylprednisolone (Solu-Medrol) 40 mg IVP Q12 [facility] Last Admin: 07/13/17 09:41 Dose: 40 mg Metoclopramide HCl (Reglan) 10 mg PO TID PRN PRN Reason: Nausea/Vomiting Morphine Sulfate (Morphine) 2 mg IVP Q8H PRN PRN Reason: Pain Last Admin: 07/11/17 09:15 Dose: 2 mg Pantoprazole Sodium (Protonix Ec Tab) 40 mg PO DAILY [facility] Last Admin: 07/13/17 09:43 Dose: 40 mg - Labs Labs: 07/13/17 06:18 07/13/17 06:18 PT 12.6 SECONDS (9.7-12.2) H 07/06/17 13:42 INR 1.1 07/06/17 13:42 APTT 23 SECONDS (21-34) 07/06/17 13:42 Assessment and Plan - Assessment and Plan (Free Text) Assessment: Patient is to follow up with PMD and Heme/onc after hospital discharge. She is stable for DC to rehab facility when a bed is available. Patient will need further outpatient workup and biopsy results with Dr. Gibson. Patient will take medication as prescribed. She should Go to the nearest ED with symptoms return or worsen. All instructions explained to the patient and she agrees.
--- NOTE | 2017-07-13 11:08 | CP.PCM.PN ---
Subjective - Date & Time of Evaluation Date of Evaluation: 07/13/17 Time of Evaluation: 08:00 - Subjective Subjective: PGY [address] Mitchell Pt seen and examined at bedside. No acute events overnight. Patient is still complaining of mild shoulder pain but has no new compalints today. She expresses that she would like to go to [facility] since she has family members that work there instead of [employer]. Patient denies having any CP, SOB, abd pain, N /V/D/C, F/C. Objective - Vital Signs/Intake and Output Vital Signs (last 24 hours): Temp Pulse Resp BP Pulse Ox 98 F 55 L 20 121/80 100 07/13/17 07:31 07/13/17 07:31 07/13/17 07:31 07/13/17 07:31 07/13/17 07:31 Intake and Output: 07/13/17 07/13/17 06:59 18:59 Intake Total 300 Balance 300 - Medications Medications: Current Medications Albuterol/Ipratropium (Duoneb 3 Mg/0.5 Mg (3 Ml) Ud) 3 ml INH RQ6 [facility] Last Admin: 07/13/17 07:53 Dose: 3 ml Anastrozole (Arimidex 1 Mg Tab) 1 mg PO DAILY [facility] Last Admin: 07/13/17 09:42 Dose: 1 mg Gabapentin (Neurontin) 400 mg PO TID [facility] Last Admin: 07/13/17 09:43 Dose: 400 mg Hydrochlorothiazide (Hydrodiuril) 25 mg PO DAILY [facility] Last Admin: 07/13/17 09:42 Dose: 25 mg Ceftriaxone Sodium 1 gm/ (Sodium Chloride) 100 mls @ 100 mls/hr IVPB DAILY [facility] PRN Reason: Protocol Stop: 07/18/17 18:01 Last Admin: 07/13/17 10:03 Dose: 100 mls/hr Lisinopril (Zestril) 20 mg PO DAILY [facility] Last Admin: 07/13/17 09:42 Dose: 20 mg Methylprednisolone (Solu-Medrol) 40 mg IVP Q12 [facility] Last Admin: 07/13/17 09:41 Dose: 40 mg Metoclopramide HCl (Reglan) 10 mg PO TID PRN PRN Reason: Nausea/Vomiting Morphine Sulfate (Morphine) 2 mg IVP Q8H PRN PRN Reason: Pain Last Admin: 07/11/17 09:15 Dose: 2 mg Pantoprazole Sodium (Protonix Ec Tab) 40 mg PO DAILY [facility] Last Admin: 07/13/17 09:43 Dose: 40 mg - Labs Labs: 07/13/17 06:18 07/13/17 06:18 PT 12.6 SECONDS (9.7-12.2) H 07/06/17 13:42 INR 1.1 07/06/17 13:42 APTT 23 SECONDS (21-34) 07/06/17 13:42 - Constitutional Appears: Non-toxic, No Acute Distress - Head Exam Head Exam: ATRAUMATIC, NORMAL INSPECTION - Eye Exam Eye Exam: EOMI, Normal appearance, PERRL Pupil Exam: NORMAL ACCOMODATION - ENT Exam ENT Exam: Mucous Membranes Moist - Respiratory Exam Respiratory Exam: Clear to Ausculation Bilateral, NORMAL BREATHING PATTERN. absent: Respiratory Distress - Cardiovascular Exam Cardiovascular Exam: REGULAR RHYTHM, +S1, +S2 - GI/Abdominal Exam GI & Abdominal Exam: Soft, Normal Bowel Sounds. absent: Distended, Firm, Guarding, Tenderness Additional comments: Obese small indurated nodule on left lower quadrant on abdomen under fat fold that is tender to palpation. No erythema or drainage noted - Extremities Exam Extremities Exam: Normal Inspection - Back Exam Back Exam: NORMAL INSPECTION. absent: CVA tenderness (L), paraspinal tenderness - Neurological Exam Neurological Exam: Alert, Awake, CN II-XII Intact, Oriented x3 - Psychiatric Exam Psychiatric exam: Normal Affect, Normal Mood Assessment and Plan - Assessment and Plan (Free Text) Assessment: Shortness of breath Improving, still using NC at times -Likely secondary to lung CA metastasis -Pulmonary consulted, Dr. Tsai help appreciated -CXR /: Right suprahilar mass and smaller lateral mid right mass (see report) -CTA /: No PE seen. pulmonary nodules evidence of metastatic lung disease, possible sclerotic changes of right clavicle (see report) -CXR /5: small right pneumothorax -CXR 6: No obvious pneumothorax. Mild venous congestion (see report) -Elevated D dimer on admission likely due to the met ca. CTA of chest and LE US negative -Solumedrol 40mg IV Q6 -Duoneb 3ml INH RO6 - Continue Rocephin IV Metastatic breast cancer -heme onc consulted, Dr. Gibson help appreciated -anastrazole 1 mg po daily -Morphine 2mg IV Q8 PRN for pain -Left chest port a cath replaced -Pending left lung biopsy results hx of HTN -continue lisinopril daily -continue HCTZ daily hx of hypokalemia -Stable -continue supplementation with potassium chloride daily -will continue to monitor Left shoulder pain Left shoulder x ray showed shoulder arthrosis GI/DVT ppx -Alteplase -protonix Dispo: Patient is to follow up with PMD and Heme/onc after hospital discharge. She is stable for DC to rehab facility when a bed is available. Patient will need further outpatient workup and biopsy results with Dr. Gibson. Patient will take medication as prescribed. She should Go to the nearest ED with symptoms return or worsen. All instructions explained to the patient and she agrees. discussed with Dr. Nate Mitchell; all management as per Dr. Nate Mitchell
--- NOTE | 2017-07-13 15:12 | CP.PCM.PN ---
Subjective - Date & Time of Evaluation Date of Evaluation: 07/13/17 Time of Evaluation: 07:00 - Subjective Subjective: clinically same Objective - Vital Signs/Intake and Output Vital Signs (last 24 hours): Temp Pulse Resp BP Pulse Ox 98 F 55 L 20 121/80 100 07/13/17 07:31 07/13/17 07:31 07/13/17 07:31 07/13/17 07:31 07/13/17 07:31 Intake and Output: 07/13/17 07/13/17 06:59 18:59 Intake Total 300 Balance 300 - Medications Medications: Current Medications Albuterol/Ipratropium (Duoneb 3 Mg/0.5 Mg (3 Ml) Ud) 3 ml INH RQ6 [facility] Last Admin: 07/13/17 13:16 Dose: 3 ml Anastrozole (Arimidex 1 Mg Tab) 1 mg PO DAILY [facility] Last Admin: 07/13/17 09:42 Dose: 1 mg Gabapentin (Neurontin) 400 mg PO TID [facility] Last Admin: 07/13/17 13:51 Dose: 400 mg Hydrochlorothiazide (Hydrodiuril) 25 mg PO DAILY [facility] Last Admin: 07/13/17 09:42 Dose: 25 mg Ceftriaxone Sodium 1 gm/ (Sodium Chloride) 100 mls @ 100 mls/hr IVPB DAILY [facility] PRN Reason: Protocol Stop: 07/18/17 18:01 Last Admin: 07/13/17 10:03 Dose: 100 mls/hr Lisinopril (Zestril) 20 mg PO DAILY [facility] Last Admin: 07/13/17 09:42 Dose: 20 mg Methylprednisolone (Solu-Medrol) 40 mg IVP Q12 [facility] Last Admin: 07/13/17 09:41 Dose: 40 mg Metoclopramide HCl (Reglan) 10 mg PO TID PRN PRN Reason: Nausea/Vomiting Morphine Sulfate (Morphine) 2 mg IVP Q8H PRN PRN Reason: Pain Last Admin: 07/11/17 09:15 Dose: 2 mg Pantoprazole Sodium (Protonix Ec Tab) 40 mg PO DAILY [facility] Last Admin: 07/13/17 09:43 Dose: 40 mg - Labs Labs: 07/13/17 06:18 07/13/17 06:18 PT 12.6 SECONDS (9.7-12.2) H 07/06/17 13:42 INR 1.1 07/06/17 13:42 APTT 23 SECONDS (21-34) 07/06/17 13:42 - Constitutional Appears: Well - Head Exam Head Exam: ATRAUMATIC, NORMAL INSPECTION, NORMOCEPHALIC - Eye Exam Eye Exam: EOMI, Normal appearance, PERRL Pupil Exam: NORMAL ACCOMODATION, PERRL - ENT Exam ENT Exam: Mucous Membranes Moist, Normal Exam - Neck Exam Neck Exam: Full ROM, Normal Inspection. absent: Lymphadenopathy - Respiratory Exam Respiratory Exam: Decreased Breath Sounds - Cardiovascular Exam Cardiovascular Exam: REGULAR RHYTHM, +S1, +S2 - GI/Abdominal Exam GI & Abdominal Exam: Soft, Diminished Bowel Sounds - Rectal Exam Rectal Exam: Deferred Assessment and Plan (1) Anemia Status: Acute (2) Breast cancer genetic susceptibility Status: Acute (3) Dyspnea Status: Acute (4) Metastatic cancer Status: Acute (5) Breast cancer Status: Acute (6) Breast cancer in female Status: Acute (7) Bronchitis Status: Acute (8) Chest wall pain Status: Acute (9) Dyspnea Status: Acute (10) Edema of both legs Status: Acute (11) Leukopenia Status: Acute (12) Malaise and fatigue Status: Acute (13) Onychomycosis Status: Acute (14) Pneumonia Status: Acute (15) Swelling of right upper extremity Status: Acute (16) Vision blurred Status: Acute
--- NOTE | 2017-07-13 16:28 | CP.PCM.PN ---
Subjective - Date & Time of Evaluation Date of Evaluation: 07/13/17 Time of Evaluation: 15:00 - Subjective Subjective: Patient seen and examined at bedside resting comfortably. She reports that generally her shortness of breath is improved and that she only feels the need to use her nasal cannula after walking to the bathroom. She notes that her cough persists and that it is not productive because she feels her phlegm may be too thick. Assessment and Plan: 1. Shortness of breath, secondary to lung metastasis - CXR 07/06: Right suprahilar mass and smaller lateral mid right mass correlate with CT 05/22 - CTA 07/06: pulmonary nodules evidence of metastatic lung disease, possible sclerotic changes of right clavicle - Dr. Darin Gibson consulted - biopsy 07/09, awaiting results - Saturating 95-100% on 2L NC - Pro-calcitonin 07/07: <0.05 - ceftriaxone - montez cath placed 07/09 - continue duonebs - continue to taper steroids to switch to oral Objective - Vital Signs/Intake and Output Vital Signs (last 24 hours): Temp Pulse Resp BP Pulse Ox 98 F 55 L 20 121/80 100 07/13/17 07:31 07/13/17 07:31 07/13/17 07:31 07/13/17 07:31 07/13/17 07:31 Intake and Output: 07/13/17 07/13/17 06:59 18:59 Intake Total 300 600 Balance 300 600 - Medications Medications: Current Medications Albuterol/Ipratropium (Duoneb 3 Mg/0.5 Mg (3 Ml) Ud) 3 ml INH RQ6 SARAH Last Admin: 07/13/17 13:16 Dose: 3 ml Anastrozole (Arimidex 1 Mg Tab) 1 mg PO DAILY SARAH Last Admin: 07/13/17 09:42 Dose: 1 mg Gabapentin (Neurontin) 400 mg PO TID SARAH Last Admin: 07/13/17 13:51 Dose: 400 mg Hydrochlorothiazide (Hydrodiuril) 25 mg PO DAILY SARAH Last Admin: 07/13/17 09:42 Dose: 25 mg Ceftriaxone Sodium 1 gm/ (Sodium Chloride) 100 mls @ 100 mls/hr IVPB DAILY SARAH PRN Reason: Protocol Stop: 07/18/17 18:01 Last Admin: 07/13/17 10:03 Dose: 100 mls/hr Lisinopril (Zestril) 20 mg PO DAILY [facility] Last Admin: 07/13/17 09:42 Dose: 20 mg Methylprednisolone (Solu-Medrol) 40 mg IVP Q12 [facility] Last Admin: 07/13/17 09:41 Dose: 40 mg Metoclopramide HCl (Reglan) 10 mg PO TID PRN PRN Reason: Nausea/Vomiting Morphine Sulfate (Morphine) 2 mg IVP Q8H PRN PRN Reason: Pain Last Admin: 07/11/17 09:15 Dose: 2 mg Pantoprazole Sodium (Protonix Ec Tab) 40 mg PO DAILY [facility] Last Admin: 07/13/17 09:43 Dose: 40 mg - Labs Labs: 07/13/17 06:18 07/13/17 06:18 PT 12.6 SECONDS (9.7-12.2) H 07/06/17 13:42 INR 1.1 07/06/17 13:42 APTT 23 SECONDS (21-34) 07/06/17 13:42
[2017-07-13 16:46] VITALS: BP 130/79; PULSE 97; TEMP 98.1; O2SAT 96
--- NOTE | 2017-07-14 11:59 | CP.PCM.PN ---
Subjective - Date & Time of Evaluation Date of Evaluation: 07/12/17 Time of Evaluation: 18:15 - Subjective Subjective: Has intermittent shortness of breath Objective - Vital Signs/Intake and Output Vital Signs (last 24 hours): Temp Pulse Resp BP Pulse Ox 98.1 F 97 H 20 130/79 96 07/13/17 15:00 07/13/17 15:00 07/13/17 15:00 07/13/17 15:00 07/13/17 15:00 - Labs Labs: 07/13/17 06:18 07/13/17 06:18 PT 12.6 SECONDS (9.7-12.2) H 07/06/17 13:42 INR 1.1 07/06/17 13:42 APTT 23 SECONDS (21-34) 07/06/17 13:42 - Head Exam Head Exam: ATRAUMATIC - Eye Exam Eye Exam: Normal appearance - ENT Exam ENT Exam: Mucous Membranes Dry - Respiratory Exam Respiratory Exam: NORMAL BREATHING PATTERN - Cardiovascular Exam Cardiovascular Exam: +S1, +S2 - GI/Abdominal Exam GI & Abdominal Exam: Normal Bowel Sounds - Extremities Exam Extremities Exam: Normal Inspection Assessment and Plan (1) Dyspnea Assessment & Plan: suspected lung mets s/p IR biopsy f/u path Status: Acute (2) Metastatic cancer Assessment & Plan: ? breast origin Status: Acute (3) Breast cancer Assessment & Plan: suspect recurrence f/u biopsy results. Status: Acute (4) Anemia Assessment & Plan: chronic disease Status: Acute
--- NOTE | 2017-07-14 12:00 | CP.PCM.PN ---
Subjective - Date & Time of Evaluation Date of Evaluation: 07/13/17 Time of Evaluation: 10:00 - Subjective Subjective: Feeling better for rehab placement Objective - Vital Signs/Intake and Output Vital Signs (last 24 hours): Temp Pulse Resp BP Pulse Ox 98.1 F 97 H 20 130/79 96 07/13/17 15:00 07/13/17 15:00 07/13/17 15:00 07/13/17 15:00 07/13/17 15:00 - Labs Labs: 07/13/17 06:18 07/13/17 06:18 PT 12.6 SECONDS (9.7-12.2) H 07/06/17 13:42 INR 1.1 07/06/17 13:42 APTT 23 SECONDS (21-34) 07/06/17 13:42 - Head Exam Head Exam: ATRAUMATIC - Eye Exam Eye Exam: Normal appearance - ENT Exam ENT Exam: Mucous Membranes Dry - Respiratory Exam Respiratory Exam: NORMAL BREATHING PATTERN - Cardiovascular Exam Cardiovascular Exam: +S1, +S2 - GI/Abdominal Exam GI & Abdominal Exam: Normal Bowel Sounds Assessment and Plan (1) Dyspnea Assessment & Plan: suspect lung mets f/u biopsy Status: Acute (2) Metastatic cancer Assessment & Plan: f/u biopsy ?breast origin Status: Acute (3) Breast cancer Assessment & Plan: rule out recurrence Status: Acute (4) Anemia Assessment & Plan: chronic disease Status: Acute
== END 2017-07-13 16:30 | DRG 541 ==
LOC: C.ER 12:01 → C.9E 15:50 → C.3T 16:27 → OBSVTOIN 07-08 16:04 → C.3T 07-10 20:45
PROVIDERS: ADMIT Internal Medicine Nephrology; ATTEND Internal Medicine Nephrology
PROC: 0JWT3XZ Revision of Tunneled Vascular Access Device in Trunk Subcutaneous Tissue and Fascia, Percutaneous Approach (ICD-10-PCS; 2017-07-08)
PROC: 0BBF3ZX Excision of Right Lower Lung Lobe, Percutaneous Approach, Diagnostic (ICD-10-PCS; principal; 2017-07-08 10:30)
DX: C78.01 Secondary malignant neoplasm of right lung (principal); J93.83 Other pneumothorax; E87.6 Hypokalemia; T82.898A Other specified complication of vascular prosthetic devices, implants and grafts, initial encounter; D72.819 Decreased white blood cell count, unspecified; I10 Essential (primary) hypertension; Z85.3 Personal history of malignant neoplasm of breast; Z68.43 Body mass index [BMI] 50.0-59.9, adult; B35.1 Tinea unguium; Z17.1 Estrogen receptor negative status [ER-]; Z90.11 Acquired absence of right breast and nipple; Z92.21 Personal history of antineoplastic chemotherapy; D64.9 Anemia, unspecified

== ENCOUNTER 2017-10-15 11:04 | Inpatient (IN) | payer OTHER ==
[2017-10-15 11:04] VITALS: BMI 50.1
--- NOTE | 2017-10-15 12:45 | C.PDOC ---
History Of Present Illness 57 y/o female with history of Breast CA, currently on chemo, presents to ED after having a bilateral lower extremity doppler done in Vascular lab with positive right dvt. At ED patient c/o pain to leg for 1 months and denies chest pain, sob, fever, chills or any other complaints at this time. Time Seen by Provider: 10/15/17 12:04 Chief Complaint (Nursing): Lower Extremity Problem/Injury History Per: Patient History/Exam Limitations: no limitations Onset/Duration Of Symptoms: Days Current Symptoms Are (Timing): Still Present Past Medical History Reviewed: Historical Data, Nursing Documentation, Vital Signs Vital Signs: Last Vital Signs Temp 98.9 F 10/15/17 17:18 Pulse 84 10/15/17 17:18 Resp 16 10/15/17 17:18 BP 106/90 10/15/17 17:18 Pulse Ox 100 10/15/17 18:20 - Medical History PMH: Asthma (CHILDHOOD NO MEDS), Fractures (TOE/ARM NO SURGERY), HTN, Malignancy (BREAST CANCER on chemotherapy), Pneumonia (Childhood) Denies: Sleep Apnea Surgical History: Denies: Pacemaker - [facility] Procedures CONTRAST PHLEBOGRAM NEC (04/10/14) DX ULTRASOUND-THORAX NEC (11/09/13) ENDO RECTUM POLYPECTOMY (11/30/12) EXCISION OF RIGHT LOWER LUNG LOBE, PERC APPROACH, DIAGN (07/08/17) INSERTION OF TOTALLY IMPLANTABLE VASC ACCESS DEVIC (11/09/13) LOCAL EXCIS BREAST LES (08/17/13) LYMPHATIC STRUCT BIOPSY (08/17/13) REVISION OF VAD IN TRUNK SUBCU/FASCIA, PERC APPROACH (07/08/17) THORAX SFT TISS XRAY NEC (11/09/13) UNILAT EXTEN SIMP MASTEC (07/05/14) UNILAT REDUCT MAMMOPLAST (07/05/14) Family History: States: Unknown Family Hx - Social History Hx Tobacco Use: No Hx Alcohol Use: No Hx Substance Use: No - Immunization History Hx Tetanus Toxoid Vaccination: No Hx Influenza Vaccination: No Hx Pneumococcal Vaccination: No Review Of Systems Constitutional: Negative for: Fever, Chills Cardiovascular: Negative for: Chest Pain Respiratory: Negative for: Shortness of Breath Gastrointestinal: Negative for: Nausea, Vomiting Musculoskeletal: Negative for: Leg Pain Skin: Negative for: Rash Neurological: Negative for: Weakness, Numbness Physical Exam - Physical Exam Appears: Non-toxic, No Acute Distress, Other (Morbidly obese) Skin: Warm, Dry, No Rash Head: Atraumatic, Normacephalic Eye(s): bilateral: Normal Inspection Oral Mucosa: Moist Cardiovascular: Rhythm Regular Respiratory: Normal Breath Sounds, No Rales, No Rhonchi, No Wheezing Gastrointestinal/Abdominal: Soft, No Tenderness, No Guarding, No Rebound Extremity: Normal ROM, Calf Tenderness (right posterior), No Deformity, Other ( right leg positive homans sign, tender, medical posterior calf) Pulses: Left Dorsalis Pedis: Normal, Right Dorsalis Pedis: Normal Neurological/Psych: Oriented x3, Normal Speech, Normal Cognition ED Course And Treatment - Laboratory Results Result Diagrams: 10/15/17 12:46 10/15/17 12:46 O2 Sat by Pulse Oximetry: 100 (RA) Pulse Ox Interpretation: Normal Medical Decision Making Medical Decision Making: discussed wih Dr Gibson. prefers lovenox discussed with Dr Nate Olson, will admit to his service DISCUSSED WITH VASCULAR LAB- PT HAS BILATERAL LOWER EXT DOPPLER STUDY= RIGHT POPLITEAL DVT. NO DVT IN LEFT LEG. Disposition Discussed With DrDarrel: Amina Olson - Disposition Disposition: HOSPITALIZED Disposition Time: 12:56 Condition: STABLE - Clinical Impression Clinical Impression: Deep vein thrombosis (DVT) of right lower extremity, Breast cancer, Unable to ambulate - PA / TRANSCRIPT CLERK / Resident Statement MD/DO has reviewed & agrees with the documentation as recorded. - Scribe Statement The provider has reviewed the documentation as recorded by the Cayla Corbett All medical record entries made by the Cayla were at my direction and personally dictated by me. I have reviewed the chart and agree that the record accurately reflects my personal performance of the history, physical exam, medical decision making, and the department course for this patient. I have also personally directed, reviewed, and agree with the discharge instructions and disposition.
[2017-10-15] MEDS ORDERED: Enoxaparin 120 mg Syringe SC STA (12:50)
[2017-10-15] MEDS ORDERED: Oxycodone/Acetaminophen 5/325 mg Tab PO STA (12:52)
[2017-10-15 12:56] LABS: BASO % 1.3 % (0.0-2.0); EOS % 0.7 % (0.0-4.0); HEMOGLOBIN 10.5 g/dL (11.0-16.0); LYMPH # 0.6 K/uL (1.0-4.3); LYMPH % 49.3 % (20.0-40.0); MEAN CORPUSCULAR HEMOGLOBIN 24.7 pg (27.0-31.0); MEAN CORPUSCULAR HGB CONC 32.5 g/dL (33.0-37.0); MEAN PLATELET VOLUME 7.9 fL (7.2-11.7); MONO % 2.7 % (0.0-10.0); NEUT # 0.5 K/uL (1.8-7.0); NRBC % 0.3 % (0.0-2.0); RBC 4.25 Mil/uL (3.80-5.20); RED CELL DISTRIBUTION WIDTH 16.6 % (11.5-14.5)
[2017-10-15] MEDS ORDERED: Enoxaparin 40 mg Syringe ONE (12:59)
[2017-10-15] MEDS ORDERED: Enoxaparin 100 mg Syringe ONE (12:59)
[2017-10-15] MEDS ORDERED: Oxycodone/Acetaminophen 5/325 mg Tab ONE (12:59)
[2017-10-15 13:03] LABS: WHITE BLOOD COUNT 1.1 K/uL (4.8-10.8)
[2017-10-15 13:09] LABS: INR 1.1; PROTHROMBIN TIME 11.9 SECONDS (9.7-12.2)
[2017-10-15 13:13] LABS: ALB/GLOB RATIO 1.8 (1.0-2.1); ALBUMIN 4.4 g/dL (3.5-5.0); ALT/SGPT 78 U/L (9-52); AST/SGOT 60 U/L (14-36); BLOOD UREA NITROGEN 10 mg/dL (7-17); CALCIUM 8.1 mg/dl (8.6-10.4); GFR AFRICAN-AMERICAN > 60; GFR NON-AFRICAN AMERICAN > 60
[2017-10-15] MEDS ORDERED: Potassium Chloride 20 mEq ER Tab PO STA (13:47)
[2017-10-15] MEDS ORDERED: Potassium Chloride 20 mEq ER Tab PO ONE (13:59)
--- NOTE | 2017-10-15 19:57 | CP.PCM.HP ---
Past Patient History - Past Medical History & Family History Past Medical History?: Yes - Past Social History Smoking Status: Never Smoked - CARDIAC Hx Hypertension: Yes Hx Pacemaker: No - PULMONARY Hx Asthma: Yes (CHILDHOOD NO MEDS) Hx Pneumonia: Yes (Childhood) Hx Sleep Apnea: No - NEUROLOGICAL Hx Neurological Disorder: No - HEENT Hx HEENT Problems: No Other/Comment: GLASSES - RENAL Hx Chronic Kidney Disease: No - ENDOCRINE/METABOLIC Hx Endocrine Disorders: No - HEMATOLOGICAL/ONCOLOGICAL Hx Cancer: Yes (breast 2018) Other/Comment: in chemotherapy every wednesday - INTEGUMENTARY Hx Dermatological Problems: No - MUSCULOSKELETAL/RHEUMATOLOGICAL Hx Fractures: Yes (TOE/ARM NO SURGERY) - GENITOURINARY/GYNECOLOGICAL Hx Genitourinary Disorders: Yes Other/Comment: right breast cancer - PSYCHIATRIC Hx Substance Use: No - SURGICAL HISTORY Hx Surgeries: Yes Hx Section: Yes (one) Other/Comment: breast removal s/p breast ca july 2014. - ANESTHESIA Hx Anesthesia: Yes Hx Anesthesia Reactions: No Hx Malignant Hyperthermia: No Meds Allergies/Adverse Reactions: Allergies Allergy/AdvReac Type Severity Reaction Status Date / Time No Known Allergies Allergy Verified 10/15/17 11:17 Results - Vital Signs Recent Vital Signs: Last Vital Signs Temp 98.9 F 10/15/17 17:18 Pulse 84 10/15/17 17:18 Resp 16 10/15/17 17:18 BP 106/90 10/15/17 17:18 Pulse Ox 100 10/15/17 18:22 - Labs Result Diagrams: 10/15/17 12:46 10/15/17 12:46 Labs: Laboratory Results - last 24 hr 10/15/17 10/15/17 10/15/17 12:46 12:46 12:46 WBC 1.1 L* D RBC 4.25 Hgb 10.5 L Hct 32.3 L MCV 76.0 L MCH 24.7 L MCHC 32.5 L RDW 16.6 H Plt Count 320 MPV 7.9 Neut % (Auto) 46.0 L Lymph % (Auto) 49.3 H [place] % (Auto) 2.7 Eos % (Auto) 0.7 Baso % (Auto) 1.3 Neut # (Auto) 0.5 L Lymph # (Auto) 0.6 L [place] # (Auto) 0.0 Eos # (Auto) 0.0 Baso # (Auto) 0.0 Differential Comment Smear Path Review PT 11.9 INR 1.1 APTT 30 Sodium 140 Potassium 2.6 L Chloride 97 L Carbon Dioxide 32 H Anion Gap 14 BUN 10 Creatinine 0.6 L Est GFR ( Amer) > 60 Est GFR (Non-Af Amer) > 60 Random Glucose 106 H Calcium 8.1 L Total Bilirubin 1.7 H AST 60 H D ALT 78 H D Alkaline Phosphatase 94 Total Protein 6.9 Albumin 4.4 Globulin 2.5 Albumin/Globulin Ratio 1.8
[2017-10-15] MEDS ORDERED: Oxycodone/Acetaminophen 5/325 mg Tab PO PRN (19:58)
[2017-10-15] MEDS: Oxycodone/Acetaminophen 5/325 mg Tab PO PRN (20:07)
[2017-10-15] MEDS: Potassium Chloride 20 mEq ER Tab PO SCH ×2 (20:24→21:45)
[2017-10-15] MEDS: Enoxaparin 150 mg Syringe SC SCH (21:53)
[2017-10-15] MEDS ORDERED: Enoxaparin 120 mg Syringe SC SCH (22:00)
[2017-10-16] MEDS: Potassium Chloride 20 mEq ER Tab PO SCH ×3 (00:18→16:52)
[2017-10-16] MEDS: Mometasone 220 mcg/puff-14 puff Inh IH SCH (08:05)
[2017-10-16 08:09] LABS: BASO % 1.2 % (0.0-2.0); EOS % 0.7 % (0.0-4.0); HEMOGLOBIN 8.8 g/dL (11.0-16.0); LYMPH # 0.8 K/uL (1.0-4.3); LYMPH % 59.7 % (20.0-40.0); MEAN CELL VOLUME 76.9 fL (81.0-99.0); MEAN CORPUSCULAR HEMOGLOBIN 24.8 pg (27.0-31.0); MEAN CORPUSCULAR HGB CONC 32.3 g/dL (33.0-37.0); MEAN PLATELET VOLUME 8.2 fL (7.2-11.7); MONO % 2.8 % (0.0-10.0); NEUT # 0.5 K/uL (1.8-7.0); NEUT % 35.6 % (50.0-75.0); NRBC % 0.1 % (0.0-2.0); RBC 3.56 Mil/uL (3.80-5.20); RED CELL DISTRIBUTION WIDTH 16.4 % (11.5-14.5)
[2017-10-16 08:20] LABS: WHITE BLOOD COUNT 1.4 K/uL (4.8-10.8)
[2017-10-16 08:36] LABS: ALB/GLOB RATIO 1.6 (1.0-2.1); ALBUMIN 3.5 g/dL (3.5-5.0); ALT/SGPT 67 U/L (9-52); AST/SGOT 47 U/L (14-36); BLOOD UREA NITROGEN 11 mg/dL (7-17); CALCIUM 7.9 mg/dl (8.6-10.4); GFR AFRICAN-AMERICAN > 60; GFR NON-AFRICAN AMERICAN > 60
[2017-10-16] MEDS: Oxycodone/Acetaminophen 5/325 mg Tab PO PRN (09:20)
[2017-10-16] MEDS: Pantoprazole 40 mg EC Tab PO SCH (09:22)
[2017-10-16] MEDS: Enoxaparin 150 mg Syringe SC SCH ×2 (09:31→21:37)
[2017-10-16] MEDS ORDERED: Potassium Chloride 20 mEq ER Tab PO ONE (10:45)
--- NOTE | 2017-10-16 11:16 | CT ---
CT left tibia and fibula History: Pain and swelling. Comparison: Doppler lower extremity venous ultrasound dated 10/15/2017 Findings: Within the left proximal tibia, at the level of the proximal medullary cavity, there is marked cortical irregularity measuring up to 2.7 x 2.1 centimeters involving the posterior and medial cortices with cortical destructive changes noted extending into the medullary cavity as well as a suggestion of soft tissue involvement. Soft tissue component measures up to 2.5 x 2.0 centimeters. These findings would be concerning for osseous neoplasm versus metastatic disease versus additional etiology. Possible superimposed pathologic fracture with curvilinear lucency seen extending to the lateral sided cortex on the sagittal sequences seen on series 602 images 99 through 114. Correlation with MRI and or bone biopsy may be helpful for further evaluation if clinically indicated. Productive bone formation along the medial cortex of the proximal tibia extending from the proximal to mid medullary cavity. Moderate degenerative changes of the medial compartment of the femorotibial joint space. Lateral subluxation of the patella. Prominent fatty atrophy of the medial and lateral heads of the gastrocnemius muscle as well as the mid to inferior soleus muscle belly. Impression: Within the left proximal tibia, at the level of the proximal medullary cavity, there is marked cortical irregularity measuring up to 2.7 x 2.1 centimeters involving the posterior and medial cortices with cortical destructive changes noted extending into the medullary cavity as well as a suggestion of soft tissue involvement. Soft tissue component measures up to 2.5 x 2.0 centimeters. These findings would be concerning for osseous neoplasm versus metastatic disease versus sequela of acute infectious change versus additional etiology. Possible superimposed pathologic fracture with curvilinear lucency seen extending to the lateral sided cortex on the sagittal sequences seen on series 602 images 99 through 114. Correlation with MRI and or bone biopsy may be helpful for further evaluation if clinically indicated. Productive bone formation along the medial cortex of the proximal tibia extending from the proximal to mid medullary cavity.
--- NOTE | 2017-10-16 14:55 | CP.PCM.PN ---
Subjective - Date & Time of Evaluation Date of Evaluation: 10/16/17 Time of Evaluation: 07:30 - Subjective Subjective: clinically same Objective - Vital Signs/Intake and Output Vital Signs (last 24 hours): Temp Pulse Resp BP Pulse Ox 97.6 F 73 20 115/73 97 10/16/17 08:42 10/16/17 08:42 10/16/17 08:42 10/16/17 08:42 10/16/17 08:42 - Medications Medications: Current Medications Anastrozole (Arimidex 1 Mg Tab) 1 mg PO DAILY [facility] Last Admin: 10/16/17 09:25 Dose: 1 mg Enoxaparin Sodium (Lovenox) 130 mg SC Q12 [facility] Last Admin: 10/16/17 09:31 Dose: 130 mg Gabapentin (Neurontin) 400 mg PO TID [facility] Last Admin: 10/16/17 13:33 Dose: 400 mg Hydrochlorothiazide (Hydrodiuril) 25 mg PO DAILY [facility] Last Admin: 10/16/17 09:22 Dose: 25 mg Potassium Chloride (Potassium Chloride 20 Meq/100 Ml) 20 meq in 100 mls @ 50 mls/hr IVPB Q2 [facility] Stop: 10/16/17 19:59 Last Admin: 10/16/17 13:34 Dose: 50 mls/hr Lisinopril (Zestril) 20 mg PO DAILY [facility] Last Admin: 10/16/17 09:22 Dose: 20 mg Metoclopramide HCl (Reglan) 10 mg PO TID PRN PRN Reason: Nausea/Vomiting Last Admin: 10/16/17 11:41 Dose: 10 mg Mometasone Furoate (Asmanex Twisthaler 220 Mcg) 220 puff IH RQD [facility] Last Admin: 10/16/17 08:05 Dose: 220 puff Oxycodone/Acetaminophen (Percocet 5/325 Mg Tab) 1 tab PO Q6H PRN PRN Reason: Pain, moderate (4-7) Stop: 10/18/17 19:47 Last Admin: 10/16/17 09:20 Dose: 1 tab Pantoprazole Sodium (Protonix Ec Tab) 40 mg PO DAILY [facility] Last Admin: 10/16/17 09:22 Dose: 40 mg Potassium Chloride (K-Dur 20 Meq Er Tab) 40 meq PO DAILY [facility] Tramadol HCl (Ultram) 50 mg PO Q6H PRN PRN Reason: Pain, severe (8-10) - Labs Labs: 10/16/17 07:56 10/16/17 07:56 PT 11.9 SECONDS (9.7-12.2) 10/15/17 12:46 INR 1.1 10/15/17 12:46 APTT 30 SECONDS (21-34) 10/15/17 12:46 - Constitutional Appears: Well - Head Exam Head Exam: ATRAUMATIC, NORMAL INSPECTION, NORMOCEPHALIC - Eye Exam Eye Exam: EOMI, Normal appearance, PERRL Pupil Exam: NORMAL ACCOMODATION, PERRL - ENT Exam ENT Exam: Mucous Membranes Moist, Normal Exam - Neck Exam Neck Exam: Full ROM, Normal Inspection. absent: Lymphadenopathy - Respiratory Exam Respiratory Exam: Decreased Breath Sounds - Cardiovascular Exam Cardiovascular Exam: REGULAR RHYTHM, +S1, +S2 - GI/Abdominal Exam GI & Abdominal Exam: Soft, Diminished Bowel Sounds - Rectal Exam Rectal Exam: Deferred
--- NOTE | 2017-10-16 20:04 | CP.PCM.CON ---
History of Present Illness - History of Present Illness History of Present Illness: 57 year old female with a history of stage IV breast cancer (triple negative) with lung, bone, and soft tissue metastasis on chemotherapy, admitted with right popliteal DVT. The patient has been experiencing worsening lower extremity swelling and pain. She was sent for venous duplex of the lower extremities which revealed right popliteal DVT. She continues to complain of left zuniga pain which is not improving. She denies shortness of breath and chest pain. In regards to her breast cancer, she was initially diagnosed with stage III multicentric right breast cancer (ER/[place] positive HER2, and triple negative) s/p neoadjuvant chemotherapy, mastectomy and axillary LN dissection (ypT1b N1a) 2014, radiation, and hormonal therapy. In 07/2017 she underwent a lung lesion biopsy which confirmed recurrent triple negative breast cancer. Past medical history: Breast cancer Past surgical history: Right mastectomy with axillar LN dissection, left reductive mammoplasy Family history: Brother had renal cell carcinoma Social history: Denies tobacco, alcohol, and illicit drug use. Allergies: NKA Review of systems: All remaining review of systems including HEENT, cardiovascular, respiratory, gastrointestinal, genitourinary, musculoskeletal, dermatologic, neurologic, and psychiatric are negative unless mentioned in the HPI. Past Patient History - Past Medical History & Family History Past Medical History?: Yes - Past Social History Smoking Status: Never Smoked - CARDIAC Hx Hypertension: Yes Hx Pacemaker: No - PULMONARY Hx Asthma: Yes (CHILDHOOD NO MEDS) Hx Pneumonia: Yes (Childhood) Hx Sleep Apnea: No - NEUROLOGICAL Hx Neurological Disorder: No - HEENT Hx HEENT Problems: No Other/Comment: GLASSES - RENAL Hx Chronic Kidney Disease: No - ENDOCRINE/METABOLIC Hx Endocrine Disorders: No - HEMATOLOGICAL/ONCOLOGICAL Hx Cancer: Yes (breast 2018) Other/Comment: in chemotherapy every wednesday - INTEGUMENTARY Hx Dermatological Problems: No - MUSCULOSKELETAL/RHEUMATOLOGICAL Hx Fractures: Yes (TOE/ARM NO SURGERY) - GENITOURINARY/GYNECOLOGICAL Hx Genitourinary Disorders: Yes Other/Comment: right breast cancer - PSYCHIATRIC Hx Substance Use: No - SURGICAL HISTORY Hx Surgeries: Yes Hx Section: Yes (one) Other/Comment: breast removal s/p breast ca july 2014. - ANESTHESIA Hx Anesthesia: Yes Hx Anesthesia Reactions: No Hx Malignant Hyperthermia: No Meds Allergies/Adverse Reactions: Allergies Allergy/AdvReac Type Severity Reaction Status Date / Time No Known Allergies Allergy Verified 10/15/17 11:17 - Medications Medications: Current Medications Anastrozole (Arimidex 1 Mg Tab) 1 mg PO DAILY [facility] Last Admin: 10/16/17 09:25 Dose: 1 mg Enoxaparin Sodium (Lovenox) 130 mg SC Q12 [facility] Last Admin: 10/16/17 09:31 Dose: 130 mg Gabapentin (Neurontin) 400 mg PO TID [facility] Last Admin: 10/16/17 17:00 Dose: 400 mg Hydrochlorothiazide (Hydrodiuril) 25 mg PO DAILY [facility] Last Admin: 10/16/17 09:22 Dose: 25 mg Lisinopril (Zestril) 20 mg PO DAILY [facility] Last Admin: 10/16/17 09:22 Dose: 20 mg Metoclopramide HCl (Reglan) 10 mg PO TID PRN PRN Reason: Nausea/Vomiting Last Admin: 10/16/17 11:41 Dose: 10 mg Mometasone Furoate (Asmanex Twisthaler 220 Mcg) 220 puff IH RQD [facility] Last Admin: 10/16/17 08:05 Dose: 220 puff Oxycodone/Acetaminophen (Percocet 5/325 Mg Tab) 1 tab PO Q6H PRN PRN Reason: Pain, moderate (4-7) Stop: 10/18/17 19:47 Last Admin: 10/16/17 09:20 Dose: 1 tab Pantoprazole Sodium (Protonix Ec Tab) 40 mg PO DAILY [facility] Last Admin: 10/16/17 09:22 Dose: 40 mg Potassium Chloride (K-Dur 20 Meq Er Tab) 40 meq PO DAILY [facility] Last Admin: 10/16/17 16:52 Dose: 40 meq Tramadol HCl (Ultram) 50 mg PO Q6H PRN PRN Reason: Pain, severe (8-10) Physical Exam - Head Exam Head Exam: ATRAUMATIC - Eye Exam Eye Exam: EOMI, Normal appearance, PERRL Pupil Exam: NORMAL ACCOMODATION, PERRL - ENT Exam ENT Exam: Mucous Membranes Moist - Respiratory Exam Respiratory Exam: NORMAL BREATHING PATTERN - Cardiovascular Exam Cardiovascular Exam: +S1, +S2 - GI/Abdominal Exam GI & Abdominal Exam: Normal Bowel Sounds - Extremities Exam Extremities exam: Positive for: pedal edema - Neurological Exam Neurological exam: Oriented x3 - Psychiatric Exam Psychiatric exam: Normal Affect, Normal Mood - Skin Skin Exam: Warm Results - Vital Signs Recent Vital Signs: Last Vital Signs Temp 98.3 F 10/16/17 16:41 Pulse 80 10/16/17 16:41 Resp 20 10/16/17 16:41 BP 99/62 L 10/16/17 16:41 Pulse Ox 98 10/16/17 16:41 - Labs Result Diagrams: 10/17/17 07:34 10/17/17 07:34 Labs: Laboratory Results - last 24 hr 10/16/17 10/16/17 10/16/17 07:56 07:56 11:36 WBC 1.4 L* RBC 3.56 L Hgb 8.8 L Hct 27.3 L MCV 76.9 L MCH 24.8 L MCHC 32.3 L RDW 16.4 H Plt Count 284 MPV 8.2 Neut % (Auto) 35.6 L Lymph % (Auto) 59.7 H [place] % (Auto) 2.8 Eos % (Auto) 0.7 Baso % (Auto) 1.2 Neut # (Auto) 0.5 L Lymph # (Auto) 0.8 L [place] # (Auto) 0.0 Eos # (Auto) 0.0 Baso # (Auto) 0.0 Sodium 138 Potassium 3.1 L Chloride 99 Carbon Dioxide 30 Anion Gap 11 BUN 11 Creatinine 0.6 L Est GFR ( Amer) > 60 Est GFR (Non-Af Amer) > 60 POC Glucose (mg/dL) 110 Random Glucose 96 Calcium 7.9 L Total Bilirubin 1.3 AST 47 H D ALT 67 H Alkaline Phosphatase 76 Total Protein 5.7 L Albumin 3.5 D Globulin 2.2 Albumin/Globulin Ratio 1.6 Assessment & Plan (1) DVT (deep venous thrombosis) Assessment and Plan: likely provoked from malignancy on therapeutic lovenox contralateral leg still hurting but no evidence of DVT; will check CT left leg Status: Acute (2) Neutropenia Assessment and Plan: secondary to chemotherapy will start Granix neutropenic precautions Status: Acute (3) Anemia Assessment and Plan: chronic disease and chemotherapy effect transfusion support PRN Status: Acute (4) Breast cancer Assessment and Plan: stage IV triple negative on chemotherapy outpatient treatment Thank you for this interesting consult. Status: Acute
[2017-10-17 07:50] LABS: BASO % 1.1 % (0.0-2.0); EOS % 0.4 % (0.0-4.0); LYMPH # 0.8 K/uL (1.0-4.3); LYMPH % 57.6 % (20.0-40.0); MEAN CELL VOLUME 76.8 fL (81.0-99.0); MEAN CORPUSCULAR HEMOGLOBIN 24.8 pg (27.0-31.0); MEAN CORPUSCULAR HGB CONC 32.2 g/dL (33.0-37.0); MEAN PLATELET VOLUME 7.9 fL (7.2-11.7); MONO # 0.1 K/uL (0.0-0.8); MONO % 4.1 % (0.0-10.0); NEUT # 0.5 K/uL (1.8-7.0); NEUT % 36.8 % (50.0-75.0); NRBC % 0.4 % (0.0-2.0); RBC 3.65 Mil/uL (3.80-5.20)
[2017-10-17 07:57] LABS: BLOOD UREA NITROGEN 5 mg/dL (7-17); CALCIUM 8.1 mg/dl (8.6-10.4); GFR AFRICAN-AMERICAN > 60; GFR NON-AFRICAN AMERICAN > 60
[2017-10-17 08:12] LABS: WHITE BLOOD COUNT 1.3 K/uL (4.8-10.8)
[2017-10-17] MEDS: Mometasone 220 mcg/puff-14 puff Inh IH SCH (09:00)
[2017-10-17] MEDS: Potassium Chloride 20 mEq ER Tab PO SCH (09:20)
[2017-10-17] MEDS: Pantoprazole 40 mg EC Tab PO SCH (09:21)
[2017-10-17] MEDS: Enoxaparin 150 mg Syringe SC SCH ×2 (09:22→21:41)
[2017-10-17] MEDS: Oxycodone/Acetaminophen 5/325 mg Tab PO PRN ×2 (09:32→17:24)
--- NOTE | 2017-10-17 18:50 | RAD ---
Left tibia and fibula four views History: Lesion. Comparison: CT dated 10/16/2017 Findings: Again identified is a focal area of cortical irregularity seen along the medial cortex of the proximal tibia at the level of the proximal medullary cavity extending to the diaphysis. These findings would be concerning for osseous neoplasm versus metastatic disease versus sequela of acute infectious change versus additional etiology. Moderate to severe degenerative changes of the knee joint space with some articular surface flattening of lateral proximal tibial plateau. Impression: Again identified is a focal area of cortical irregularity seen along the medial cortex of the proximal tibia at the level of the proximal medullary cavity extending to the diaphysis. These findings would be concerning for osseous neoplasm versus metastatic disease versus sequela of acute infectious change versus additional etiology. Correlation with a contrast-enhanced MRI may be helpful for better characterization of if clinically indicated. Moderate to severe degenerative changes of the knee joint space with some articular surface flattening of lateral proximal tibial plateau.
--- NOTE | 2017-10-17 19:00 | RAD ---
Left knee four views History: Tumor. Comparison: CT dated 10/16/2017 Findings: Again identified is a focal area of cortical irregularity seen along the medial cortex of the proximal tibia at the level of the proximal medullary cavity extending to the diaphysis. These findings would be concerning for osseous neoplasm versus metastatic disease versus sequela of acute infectious change versus additional etiology. Moderate to severe degenerative changes of the knee joint space with some articular surface flattening of lateral proximal tibial plateau. Severe patellofemoral compartment joint space narrowing with subchondral sclerosis. Productive change at the anterior tibial tubercle. Moderate suprapatellar joint effusion. Impression: Again identified is a focal area of cortical irregularity seen along the medial cortex of the proximal tibia at the level of the proximal medullary cavity extending to the diaphysis. These findings would be concerning for osseous neoplasm versus metastatic disease versus sequela of acute infectious change versus additional etiology. Moderate to severe degenerative changes of the knee joint space with some articular surface flattening of lateral proximal tibial plateau. Severe patellofemoral compartment joint space narrowing with subchondral sclerosis. Productive change at the anterior tibial tubercle. Moderate suprapatellar joint effusion.
--- NOTE | 2017-10-17 19:43 | CP.PCM.PN ---
Subjective - Date & Time of Evaluation Date of Evaluation: 10/17/17 Time of Evaluation: 19:40 - Subjective Subjective: CHART REVIEWED. PT SEEN AND EXAMINED. COVERING DR Nate BONNER PT ALERT, OCC WHEEZE. NO COUGH., EATING OK., LESS PAIN., ROS; OTHERWISE NEG. Objective - Vital Signs/Intake and Output Vital Signs (last 24 hours): Temp Pulse Resp BP Pulse Ox 98.8 F 89 20 134/79 99 10/17/17 16:00 10/17/17 16:00 10/17/17 16:00 10/17/17 16:00 10/17/17 16:00 - Medications Medications: Current Medications Anastrozole (Arimidex 1 Mg Tab) 1 mg PO DAILY [facility] Last Admin: 10/17/17 10:55 Dose: 1 mg Enoxaparin Sodium (Lovenox) 130 mg SC Q12 [facility] Last Admin: 10/17/17 09:22 Dose: 130 mg Gabapentin (Neurontin) 400 mg PO TID [facility] Last Admin: 10/17/17 17:25 Dose: 400 mg Hydrochlorothiazide (Hydrodiuril) 25 mg PO DAILY [facility] Last Admin: 10/17/17 09:21 Dose: 25 mg Lisinopril (Zestril) 20 mg PO DAILY [facility] Last Admin: 10/17/17 09:22 Dose: Not Given Metoclopramide HCl (Reglan) 10 mg PO TID PRN PRN Reason: Nausea/Vomiting Last Admin: 10/17/17 09:21 Dose: 10 mg Mometasone Furoate (Asmanex Twisthaler 220 Mcg) 220 puff IH RQD [facility] Last Admin: 10/17/17 09:00 Dose: 220 puff Oxycodone/Acetaminophen (Percocet 5/325 Mg Tab) 1 tab PO Q6H PRN PRN Reason: Pain, moderate (4-7) Stop: 10/18/17 19:47 Last Admin: 10/17/17 17:24 Dose: 1 tab Pantoprazole Sodium (Protonix Ec Tab) 40 mg PO DAILY [facility] Last Admin: 10/17/17 09:21 Dose: 40 mg Potassium Chloride (K-Dur 20 Meq Er Tab) 40 meq PO DAILY [facility] Last Admin: 10/17/17 09:20 Dose: 40 meq Tramadol HCl (Ultram) 50 mg PO Q6H PRN PRN Reason: Pain, severe (8-10) - Labs Labs: 10/17/17 07:34 10/17/17 07:34 PT 11.9 SECONDS (9.7-12.2) 10/15/17 12:46 INR 1.1 10/15/17 12:46 APTT 30 SECONDS (21-34) 10/15/17 12:46 - Constitutional Appears: No Acute Distress, Chronically Ill - Head Exam Head Exam: ATRAUMATIC, NORMOCEPHALIC - Eye Exam Eye Exam: EOMI, Normal appearance - ENT Exam ENT Exam: Mucous Membranes Moist - Neck Exam Neck Exam: Normal Inspection - Respiratory Exam Respiratory Exam: Decreased Breath Sounds. absent: Respiratory Distress - Cardiovascular Exam Cardiovascular Exam: RRR, +S1, +S2 - GI/Abdominal Exam GI & Abdominal Exam: Soft, Tenderness Additional comments: OBESE - Rectal Exam Rectal Exam: Deferred - Extremities Exam Extremities Exam: Calf Tenderness - Back Exam Back Exam: absent: CVA tenderness (L), CVA tenderness (R) - Neurological Exam Neurological Exam: Alert, Awake, CN II-XII Intact, Oriented x3 - Psychiatric Exam Psychiatric exam: Normal Mood - Skin Skin Exam: absent: Rash Assessment and Plan (1) Hypertension Status: Acute (2) Obesity Status: Acute (3) Asthma Status: Acute (4) Breast cancer Status: Acute (5) Deep vein thrombosis (DVT) of right lower extremity Status: Acute (6) Anemia Status: Acute (7) Metastatic cancer Status: Acute - Assessment and Plan (Free Text) Assessment: RESP STATUS UNLABORED AT REST. CONT PULM TOILET., ADD NEB BD., MONITOR O2 SAT. CONT ANTICOAG. ANALGESIA. RADIOLOGY REVIEWED. PROG POOR. DISCUSSED WITH STAFF.
[2017-10-18] MEDS: Albuterol-Ipratrop 3 mg / 0.5 (3 ml) UD INH SCH ×4 (02:16→19:50)
[2017-10-18] MEDS: Mometasone 220 mcg/puff-14 puff Inh IH SCH (07:20)
--- NOTE | 2017-10-18 09:49 | CP.PCM.PN ---
Subjective - Date & Time of Evaluation Date of Evaluation: 10/16/17 Time of Evaluation: 17:00 - Subjective Subjective: Has left leg pain CT left LE suggestive on bone metastasis with possible pathologic fracture. Objective - Vital Signs/Intake and Output Vital Signs (last 24 hours): Temp Pulse Resp BP Pulse Ox 98.1 F 78 23 104/70 100 10/18/17 07:55 10/18/17 07:55 10/18/17 07:55 10/18/17 07:55 10/18/17 07:55 Intake and Output: 10/18/17 10/18/17 06:59 18:59 Intake Total 0 Output Total 250 Balance -250 - Medications Medications: Current Medications Albuterol/Ipratropium (Duoneb 3 Mg/0.5 Mg (3 Ml) Ud) 3 ml INH RQ6 [facility] Last Admin: 10/18/17 07:21 Dose: 3 ml Anastrozole (Arimidex 1 Mg Tab) 1 mg PO DAILY [facility] Last Admin: 10/17/17 10:55 Dose: 1 mg Enoxaparin Sodium (Lovenox) 130 mg SC Q12 [facility] Last Admin: 10/17/17 21:41 Dose: 130 mg Gabapentin (Neurontin) 400 mg PO TID [facility] Last Admin: 10/17/17 17:25 Dose: 400 mg Hydrochlorothiazide (Hydrodiuril) 25 mg PO DAILY [facility] Last Admin: 10/17/17 09:21 Dose: 25 mg Lisinopril (Zestril) 20 mg PO DAILY [facility] Last Admin: 10/17/17 09:22 Dose: Not Given Metoclopramide HCl (Reglan) 10 mg PO TID PRN PRN Reason: Nausea/Vomiting Last Admin: 10/17/17 09:21 Dose: 10 mg Mometasone Furoate (Asmanex Twisthaler 220 Mcg) 220 puff IH RQD [facility] Last Admin: 10/18/17 07:20 Dose: 220 puff Oxycodone/Acetaminophen (Percocet 5/325 Mg Tab) 1 tab PO Q6H PRN PRN Reason: Pain, moderate (4-7) Stop: 10/18/17 19:47 Last Admin: 10/17/17 17:24 Dose: 1 tab Pantoprazole Sodium (Protonix Ec Tab) 40 mg PO DAILY [facility] Last Admin: 10/17/17 09:21 Dose: 40 mg Potassium Chloride (K-Dur 20 Meq Er Tab) 40 meq PO DAILY [facility] Last Admin: 10/17/17 09:20 Dose: 40 meq Tramadol HCl (Ultram) 50 mg PO Q6H PRN PRN Reason: Pain, severe (8-10) - Labs Labs: 10/17/17 07:34 10/17/17 07:34 PT 11.9 SECONDS (9.7-12.2) 10/15/17 12:46 INR 1.1 10/15/17 12:46 APTT 30 SECONDS (21-34) 10/15/17 12:46 - Head Exam Head Exam: ATRAUMATIC - Eye Exam Eye Exam: Normal appearance - ENT Exam ENT Exam: Mucous Membranes Dry - Respiratory Exam Respiratory Exam: NORMAL BREATHING PATTERN - Cardiovascular Exam Cardiovascular Exam: +S1, +S2 - GI/Abdominal Exam GI & Abdominal Exam: Normal Bowel Sounds - Extremities Exam Extremities Exam: Pedal Edema Assessment and Plan (1) Pathologic fracture Assessment & Plan: left LE likely from bone metastasis will consult orthopedics Dr. Valdes for evaluation; ? need for fixation will likely also need radiotherapy Status: Acute (2) DVT (deep venous thrombosis) Assessment & Plan: provoked from malignancy on therapeutic lovenox Status: Acute (3) Neutropenia Assessment & Plan: on Granix Status: Acute (4) Anemia Assessment & Plan: chronic disease and chemotherapy. Status: Acute (5) Breast cancer Assessment & Plan: stage IV triple negative outpatient chemotherapy Status: Acute
[2017-10-18] MEDS: Pantoprazole 40 mg EC Tab PO SCH (12:22)
[2017-10-18] MEDS: Potassium Chloride 20 mEq ER Tab PO SCH (12:22)
[2017-10-18] MEDS: Enoxaparin 150 mg Syringe SC SCH ×2 (12:23→21:43)
--- NOTE | 2017-10-18 13:02 | CP.PCM.CON ---
History of Present Illness - History of Present Illness History of Present Illness: Orthopedic consultation Dr. Valdes 57F complains of B leg pain left greater than right, worsening to point that she is unable to walk on left leg. She point to just below knee as worst pain on left. She says her legs are more swollen than usual also. She says she had a bone scan previously and she has a "spot" in her left shoulder and ribs that hurts at times. She says she usually walks with cane, but they told her to use walker after her last rehab admission. Denies CP/SOB/dizziness/numbness/ tingling at this time. PMH: stage 4 metastatic breast Ca to bone and lungs, HTN PSH: right breast mastectomy Review of Systems - Review of Systems All systems: reviewed and no additional remarkable complaints except - Musculoskeletal Musculoskeletal: As Per HPI Past Patient History - Past Medical History & Family History Past Medical History?: Yes Past Family History: Reviewed and not pertinent - Past Social History Smoking Status: Never Smoked - CARDIAC Hx Hypertension: Yes Hx Pacemaker: No - PULMONARY Hx Asthma: Yes (CHILDHOOD NO MEDS) Hx Pneumonia: Yes (Childhood) Hx Sleep Apnea: No - NEUROLOGICAL Hx Neurological Disorder: No - HEENT Hx HEENT Problems: No Other/Comment: GLASSES - RENAL Hx Chronic Kidney Disease: No - ENDOCRINE/METABOLIC Hx Endocrine Disorders: No - HEMATOLOGICAL/ONCOLOGICAL Hx Cancer: Yes (breast 2018) Other/Comment: in chemotherapy every wednesday - INTEGUMENTARY Hx Dermatological Problems: No - MUSCULOSKELETAL/RHEUMATOLOGICAL Hx Fractures: Yes (TOE/ARM NO SURGERY) - GENITOURINARY/GYNECOLOGICAL Hx Genitourinary Disorders: Yes Other/Comment: right breast cancer - PSYCHIATRIC Hx Substance Use: No - SURGICAL HISTORY Hx Surgeries: Yes Hx Section: Yes (one) Other/Comment: breast removal s/p breast ca july 2014. - ANESTHESIA Hx Anesthesia: Yes Hx Anesthesia Reactions: No Hx Malignant Hyperthermia: No Meds Allergies/Adverse Reactions: Allergies Allergy/AdvReac Type Severity Reaction Status Date / Time No Known Allergies Allergy Verified 10/15/17 11:17 - Medications Medications: Current Medications Albuterol/Ipratropium (Duoneb 3 Mg/0.5 Mg (3 Ml) Ud) 3 ml INH RQ6 [facility] Last Admin: 10/18/17 07:21 Dose: 3 ml Anastrozole (Arimidex 1 Mg Tab) 1 mg PO DAILY [facility] Last Admin: 10/18/17 12:27 Dose: 1 mg Enoxaparin Sodium (Lovenox) 130 mg SC Q12 [facility] Last Admin: 10/18/17 12:23 Dose: 130 mg Gabapentin (Neurontin) 400 mg PO TID [facility] Last Admin: 10/18/17 12:23 Dose: 400 mg Hydrochlorothiazide (Hydrodiuril) 25 mg PO DAILY [facility] Last Admin: 10/18/17 12:22 Dose: 25 mg Lisinopril (Zestril) 20 mg PO DAILY [facility] Last Admin: 10/18/17 12:23 Dose: 20 mg Metoclopramide HCl (Reglan) 10 mg PO TID PRN PRN Reason: Nausea/Vomiting Last Admin: 10/17/17 09:21 Dose: 10 mg Mometasone Furoate (Asmanex Twisthaler 220 Mcg) 220 puff IH RQD [facility] Last Admin: 10/18/17 07:20 Dose: 220 puff Oxycodone/Acetaminophen (Percocet 5/325 Mg Tab) 1 tab PO Q6H PRN PRN Reason: Pain, moderate (4-7) Stop: 10/18/17 19:47 Last Admin: 10/17/17 17:24 Dose: 1 tab Pantoprazole Sodium (Protonix Ec Tab) 40 mg PO DAILY [facility] Last Admin: 10/18/17 12:22 Dose: 40 mg Potassium Chloride (K-Dur 20 Meq Er Tab) 40 meq PO DAILY [facility] Last Admin: 10/18/17 12:22 Dose: 40 meq Tramadol HCl (Ultram) 50 mg PO Q6H PRN PRN Reason: Pain, severe (8-10) Physical Exam - Constitutional Appears: Well, In Acute Distress - Expanded Lower Extremities Exam Left Knee exam: full ROM Lower Leg Exam: swelling, tenderness Ankle exam: FULL ROM Neuro vacular tendon exam: no vascular compromise (+DP/PULSE, sensation intact LLE, TTP right knee, mild pain with ROM) - Neurological Exam Neurological exam: Alert, Oriented x3 - Psychiatric Exam Psychiatric exam: Normal Affect, Normal Mood - Skin Skin Exam: Dry, Intact, Normal Color, Warm Results - Vital Signs Recent Vital Signs: Last Vital Signs Temp 98.1 F 10/18/17 07:55 Pulse 78 10/18/17 07:55 Resp 23 10/18/17 07:55 BP 104/70 10/18/17 07:55 Pulse Ox 100 10/18/17 07:55 - Labs Result Diagrams: 10/17/17 07:34 10/17/17 07:34 - Impressions Impression: atient Name / ID : WINDY AVILA / [id number] Exam Date : 10/16/2017 21:11:16 ( Approved ) Study Comment : Sex / Age : F / 57Y Creator : Stefan Waters MD Dictator : Stefan Waters MD Substation Operator : Kalsominer : Stefan Waters MD Approver2 : Report Date : 10/17/2017 18:53:54 My Comment : Left knee four views History: Tumor. Comparison: CT dated 10/16/2017 Findings: Again identified is a focal area of cortical irregularity seen along the medial cortex of the proximal tibia at the level of the proximal medullary cavity extending to the diaphysis. These findings would be concerning for osseous neoplasm versus metastatic disease versus sequela of acute infectious change versus additional etiology. Moderate to severe degenerative changes of the knee joint space with some articular surface flattening of lateral proximal tibial plateau. Severe patellofemoral compartment joint space narrowing with subchondral sclerosis. Productive change at the anterior tibial tubercle. Moderate suprapatellar joint effusion. Impression: Again identified is a focal area of cortical irregularity seen along the medial cortex of the proximal tibia at the level of the proximal medullary cavity extending to the diaphysis. These findings would be concerning for osseous neoplasm versus metastatic disease versus sequela of acute infectious change versus additional etiology. Moderate to severe degenerative changes of the knee joint space with some articular surface flattening of lateral proximal tibial plateau. Severe patellofemoral compartment joint space narrowing with subchondral sclerosis. Productive change at the anterior tibial tubercle. Moderate suprapatellar joint effusion. atient Name / ID : WINDY AVILA / [id number] Exam Date : 10/16/2017 21:11:16 ( Approved ) Study Comment : Sex / Age : F / 57Y Creator : Stefan Waters MD Dictator : Stefan Waters MD Substation Operator : Kalsominer : Stefan Waters MD Approver2 : Report Date : 10/17/2017 18:43:35 My Comment : Left tibia and fibula four views History: Lesion. Comparison: CT dated 10/16/2017 Findings: Again identified is a focal area of cortical irregularity seen along the medial cortex of the proximal tibia at the level of the proximal medullary cavity extending to the diaphysis. These findings would be concerning for osseous neoplasm versus metastatic disease versus sequela of acute infectious change versus additional etiology. Moderate to severe degenerative changes of the knee joint space with some articular surface flattening of lateral proximal tibial plateau. Impression: Again identified is a focal area of cortical irregularity seen along the medial cortex of the proximal tibia at the level of the proximal medullary cavity extending to the diaphysis. These findings would be concerning for osseous neoplasm versus metastatic disease versus sequela of acute infectious change versus additional etiology. Correlation with a contrast-enhanced MRI may be helpful for better characterization of if clinically indicated. Moderate to severe degenerative changes of the knee joint space with some articular surface flattening of lateral proximal tibial plateau. Patient Name / ID : WINDY AVILA / [id number] Exam Date : 10/16/2017 10:38:08 ( Approved ) Study Comment : Sex / Age : F / 57Y Creator : Stefan Waters MD Dictator : Stefan Waters MD Substation Operator : Kalsominer : Stefan Waters MD Approver2 : Report Date : 10/16/2017 11:09:56 My Comment : CT left tibia and fibula History: Pain and swelling. Comparison: Doppler lower extremity venous ultrasound dated 10/15/2017 Findings: Within the left proximal tibia, at the level of the proximal medullary cavity, there is marked cortical irregularity measuring up to 2.7 x 2.1 centimeters involving the posterior and medial cortices with cortical destructive changes noted extending into the medullary cavity as well as a suggestion of soft tissue involvement. Soft tissue component measures up to 2.5 x 2.0 centimeters. These findings would be concerning for osseous neoplasm versus metastatic disease versus additional etiology. Possible superimposed pathologic fracture with curvilinear lucency seen extending to the lateral sided cortex on the sagittal sequences seen on series 602 images 99 through 114. Correlation with MRI and or bone biopsy may be helpful for further evaluation if clinically indicated. Productive bone formation along the medial cortex of the proximal tibia extending from the proximal to mid medullary cavity. Moderate degenerative changes of the medial compartment of the femorotibial joint space. Lateral subluxation of the patella. Prominent fatty atrophy of the medial and lateral heads of the gastrocnemius muscle as well as the mid to inferior soleus muscle belly. Impression: Within the left proximal tibia, at the level of the proximal medullary cavity, there is marked cortical irregularity measuring up to 2.7 x 2.1 centimeters involving the posterior and medial cortices with cortical destructive changes noted extending into the medullary cavity as well as a suggestion of soft tissue involvement. Soft tissue component measures up to 2.5 x 2.0 centimeters. These findings would be concerning for osseous neoplasm versus metastatic disease versus sequela of acute infectious change versus additional etiology. Possible superimposed pathologic fracture with curvilinear lucency seen extending to the lateral sided cortex on the sagittal sequences seen on series 602 images 99 through 114. Correlation with MRI and or bone biopsy may be helpful for further evaluation if clinically indicated. Productive bone formation along the medial cortex of the proximal tibia extending from the proximal to mid medullary cavity. Patient Name / ID : WINDY AVILA / [id number] Exam Date : 10/15/2017 10:20:38 ( Approved ) Study Comment : Sex / Age : F / 57Y Creator : Vernell Siegel Dictator : Vernell Siegel Substation Operator : Kalsominer : Niranjan Turner MD Approver2 : Report Date : 10/15/2017 12:51:29 My Comment : Date of service: 10/15/2017 PROCEDURE: Lower Extremity Venous Duplex Exam. HISTORY: Swelling and pain PRIORS: Last exam 07/06/2017, normal. TECHNIQUE: Bilateral common femoral, femoral, popliteal and posterior tibial, peroneal and great saphenous veins were evaluated. Flow was assessed with color Doppler, compressibility, assessment of phasic flow and augmentation response. Report prepared by BECCA Vázquez FINDINGS: RIGHT: 1. Common Femoral Vein: 1.1. Compressibility - Fully compressible: Thrombus - None : Flow - Phasic: Augmentation -Normal: Reflux - None. 2. Femoral Vein: 2.1. Compressibility - Fully compressible: Thrombus - None : Flow - Phasic: Augmentation -Normal: Reflux - None. 3. Popliteal Vein: 3.1. Compressibility - Partial: Thrombus - Acute : Flow - Absent : Augmentation -Normal: Reflux - None. 4. Posterior Tibial Vein: 4.1. Compressibility - Fully compressible: Thrombus - None: Flow - Phasic: Augmentation -Normal: Reflux - None. 5. Peroneal Vein: 5.1. Not well visualized 6. Great Saphenous Vein: 6.1. Compressibility - Fully compressible: Thrombus - None: Flow - Phasic: Augmentation - Normal: Reflux - None. LEFT: 1. Common Femoral Vein: 1.1. Compressibility - Fully compressible: Thrombus - None: Flow - Phasic: Augmentation -Normal: Reflux - None. 2. Femoral Vein: 2.1. Compressibility - Fully compressible: Thrombus - None: Flow - Phasic: Augmentation -Normal: Reflux - None. 3. Popliteal Vein: 3.1. Compressibility - Fully compressible: Thrombus - None : Flow - Phasic: Augmentation -Normal: Reflux - None. 4. Posterior Tibial Vein: 4.1. Compressibility - Fully compressible: Thrombus - None: Flow - Phasic: Augmentation -Normal: Reflux - None. 5. Peroneal Vein: 5.1. Not well visualized 6. Great Saphenous Vein: 6.1. Compressibility - Fully compressible: Thrombus - None: Flow - Phasic: Augmentation - Normal: Reflux - None. OTHER FINDINGS: Bilateral peroneal veins are not well visualized due to swelling. IMPRESSION: Right: Totally occluding acute deep vein thrombosis of the right popliteal vein. Left: No evidence of deep or superficial vein thrombosis of the left lower extremity. Normal valve function noted of the left side. Findings were conveyed to Dr. Gibson at 10:43 a.m. The patient was sent to the emergency room as advised by the referring physician. atient Name / ID : WINDY AVILA / [id number] Exam Date : 06/14/2017 12:21:07 ( Approved ) Study Comment : Sex / Age : F / 57Y Creator : Matthew Calderon MD Dictator : Matthew Calderon MD Substation Operator : Kalsominer : Matthew Calderon MD Approver2 : Report Date : 06/14/2017 16:39:34 My Comment : HISTORY: Breast carcinoma with lung nodules. Questionable recurrence. INDICATION: Response to therapy TECHNIQUE: Following the administration of 13.28mCi of FDG, a PET CT scan was performed from the base of skull through the mid thigh. CT portion of the examination was used for attenuation correction and anatomic localization. No intravenous contrast was administered. Blood glucose was 79mg/dL approximately 1 hour prior to imaging, at the time of injection of tracer. Sagittal, coronal, and axial reconstructions were reviewed along with MIP reconstructions, on a [employer] workstation. COMPARISON: Comparison made with CT scan of the abdomen and pelvis dated 05/22/2017 and CTA of the chest dated 08/22/2016. FINDINGS: HEAD AND NECK: BRAIN: Visualized portions normal. NECK: There is a faint area of elliptical shaped FDG activity in the right submandibular region that measures approximately 2.1 cm and demonstrates at average SUV 3.7 and SUV max 4.0 which could represent a metastatic lymph node. Rounded approximately 11 mm nodule and/or lymph node right aspect of the neck also noted best seen on axial series 3. Image number 60 with average SUV 4.26 and SUV max 4.56 also possibly represents noted small metastatic lymph node. Physiologic FDG uptake in the oropharynx, salivary glands, and larynx. CHEST: LUNGS: . There is a large FDG active lesion is located in the right lower lobe measuring approximately 3.3 x 2.8 cm. . A smaller FDG active parenchymal nodule seen in the right upper lobe which measures approximately 13.4 mm best seen on axial image number 104 In addition, there are multiple FDG avid mediastinal on lymph nodes in the right hilar region with average SUV 7.4 and SUV max 9.75 sub carinal adenopathy with SUV 8.9 and SUV max 11.9. . There is a small lesion adjacent to the descending aorta with average SUV 7.0 and SUV max 8.62 (best seen on axial image number [id number] 141 LYMPH NODES: There are 2 FDG intense lymph nodes in the right pretracheal and paratracheal upper mediastinum of the more anteriorly located lesion exhibiting at average SUV 8.3 and SUV max 10.6. The 2nd more posteriorly and medially located paratracheal lesion exhibits average SUV 9.1 with SUV max 13.07. There is a small FDG intense right axillary lymph node measures approximately 13 mm. Metastatic lymph node in the left medial axilla which measures approximately 2.6 x1 0.6 cm. There is a large elliptical shaped lesion right anterior upper chest wall which measures 4.3 x 3.1 cm. Physiologic FDG uptake noted in the heart. ABDOMEN AND PELVIS: LYMPH NODES: Small metastatic lesion -lymph node presumably at dorsal to the mid abdominal aorta just above the level of the renal arteries. SOLID ORGANS: Normal in size and FDG avidity. Physiologic FDG excretion is seen in the kidneys and bladder. There is also a small focal area of increased radiotracer there is or activity in the right aspect of the pelvis that could represent volume averaging of the right ureter. MUSCULOSKELETAL: There is a elliptical shaped of intense FDG activity along the proximal of left humerus possibly representing a metastatic lesion at to the cortex . This area a exhibits average SUV 7.35 and SUV max 9.04. Metastatic lesion in the left posterior 10th rib. There is an FDG avid elliptical shaped mass measuring 2.8 x 2.3 in the left lateral subcutaneous tissues of the upper pelvis region with average SUV 10.0 and SUV max 12.4 there are additional metastatic lesions seen apparently in the left femoral head, focally within the left gluteus aubrie and another in the left posterior subcutaneous tissues of the left buttock. IMPRESSION: There are multiple metastatic lesions within both lungs, mediastinum, chest wall and both axilla and retroaortic region of the abdomen Metastatic lesions in the subcutaneous tissues left lateral and posterolateral pelvis and buttock region with presumed metastases in the left femoral head and left proximal humerus. Suspect small metastatic node right aspect of neck and possibly within the left submandibular region. As well. These findings were discussed with Dr. Gibson 06/14/2017 at approximately 5:45 p.m. with written down and read back verification. Assessment & Plan (1) Pathological fracture, left tibia, initial encounter for fracture Assessment and Plan: large left proximal tibial tumor with fracture knee immobilizer NWB LLE will consider PT once right LE is scanned also for WB pain mgmt d/w Dr. Valdes regarding indication for surgery Status: Acute (2) Breast cancer metastasized to bone Assessment and Plan: bone scan pending pet scan from 06/2017 appreciated, left femoral neck, left prox humerus, ribs, soft tumor to pelvis noted will cancel biopsy as known stage 4 Status: Acute (3) DVT (deep venous thrombosis) Status: Acute (4) Neutropenia Status: Acute
--- NOTE | 2017-10-18 15:16 | CP.PCM.PN ---
Subjective - Date & Time of Evaluation Date of Evaluation: 10/18/17 Time of Evaluation: 15:16 - Subjective Subjective: COVERING DR Nate BONNER PT ALERT, NO CHANGE PAIN., ROS ; OTHERWISE NEG Objective - Vital Signs/Intake and Output Vital Signs (last 24 hours): Temp Pulse Resp BP Pulse Ox 98.1 F 78 23 104/70 100 10/18/17 07:55 10/18/17 07:55 10/18/17 07:55 10/18/17 07:55 10/18/17 07:55 Intake and Output: 10/18/17 10/18/17 06:59 18:59 Intake Total 0 Output Total 250 Balance -250 - Medications Medications: Current Medications Albuterol/Ipratropium (Duoneb 3 Mg/0.5 Mg (3 Ml) Ud) 3 ml INH RQ6 [facility] Last Admin: 10/18/17 14:10 Dose: 3 ml Anastrozole (Arimidex 1 Mg Tab) 1 mg PO DAILY [facility] Last Admin: 10/18/17 12:27 Dose: 1 mg Enoxaparin Sodium (Lovenox) 130 mg SC Q12 [facility] Last Admin: 10/18/17 12:23 Dose: 130 mg Gabapentin (Neurontin) 400 mg PO TID [facility] Last Admin: 10/18/17 15:07 Dose: 400 mg Hydrochlorothiazide (Hydrodiuril) 25 mg PO DAILY [facility] Last Admin: 10/18/17 12:22 Dose: 25 mg Lisinopril (Zestril) 20 mg PO DAILY [facility] Last Admin: 10/18/17 12:23 Dose: 20 mg Metoclopramide HCl (Reglan) 10 mg PO TID PRN PRN Reason: Nausea/Vomiting Last Admin: 10/17/17 09:21 Dose: 10 mg Mometasone Furoate (Asmanex Twisthaler 220 Mcg) 220 puff IH RQD [facility] Last Admin: 10/18/17 07:20 Dose: 220 puff Oxycodone/Acetaminophen (Percocet 5/325 Mg Tab) 1 tab PO Q6H PRN PRN Reason: Pain, moderate (4-7) Stop: 10/18/17 19:47 Last Admin: 10/17/17 17:24 Dose: 1 tab Pantoprazole Sodium (Protonix Ec Tab) 40 mg PO DAILY [facility] Last Admin: 10/18/17 12:22 Dose: 40 mg Potassium Chloride (K-Dur 20 Meq Er Tab) 40 meq PO DAILY [facility] Last Admin: 10/18/17 12:22 Dose: 40 meq Tramadol HCl (Ultram) 50 mg PO Q6H PRN PRN Reason: Pain, severe (8-10) - Labs Labs: 10/17/17 07:34 10/17/17 07:34 PT 11.9 SECONDS (9.7-12.2) 10/15/17 12:46 INR 1.1 10/15/17 12:46 APTT 30 SECONDS (21-34) 10/15/17 12:46 - Constitutional Appears: No Acute Distress, Chronically Ill - Head Exam Head Exam: ATRAUMATIC, NORMOCEPHALIC - Eye Exam Eye Exam: EOMI, Normal appearance - ENT Exam ENT Exam: Mucous Membranes Moist - Neck Exam Neck Exam: Normal Inspection - Respiratory Exam Respiratory Exam: Decreased Breath Sounds. absent: Wheezes, Respiratory Distress - Cardiovascular Exam Cardiovascular Exam: RRR, +S1, +S2 - GI/Abdominal Exam GI & Abdominal Exam: Soft. absent: Tenderness - Rectal Exam Rectal Exam: Deferred - Extremities Exam Extremities Exam: Calf Tenderness - Back Exam Back Exam: absent: CVA tenderness (L), CVA tenderness (R) - Neurological Exam Neurological Exam: Alert, Awake, CN II-XII Intact, Oriented x3 - Psychiatric Exam Psychiatric exam: Normal Mood - Skin Skin Exam: absent: Rash Assessment and Plan (1) Hypertension Status: Acute (2) Obesity Status: Acute (3) Asthma Status: Acute (4) Breast cancer Status: Acute (5) Deep vein thrombosis (DVT) of right lower extremity Status: Acute (6) Anemia Status: Acute (7) Metastatic cancer Status: Acute - Assessment and Plan (Free Text) Assessment: RESP STATUS NO SIG CHANGE., CONT PULM TOILET. ANALGESIA. BONE SCAN TODAY. CXR REVIEWED. PROG POOR. DISCUSSED WITH STAFF AT LENGTH
--- NOTE | 2017-10-18 17:26 | NM ---
Date of service: 10/18/2017 PROCEDURE: Whole Body Bone Scan HISTORY: R/o metastatic disease COMPARISON: 09/27/2013 bone scan 10/16/2017 left lower extremity radiographs 10/16/2017 CT left lower extremity TECHNIQUE: Following administration of 21.9 miCu of Tc MDP multiplanar whole body images were obtained. FINDINGS: Evidence for bony metastatic disease: Proximal and distal left humerus, lateral inferior left ribs, proximal right femur, distal left femur, of proximal left tibia (corresponds to findings on recent x-ray cross-sectional studies). Additional abnormalities left hip likely within the left femoral head Degenerative uptake: None. Physiologic uptake: Normal physiologic activity in the kidneys. Other findings: None. IMPRESSION: New osseous metastatic disease axial and appendicular skeleton.
[2017-10-19] MEDS: Albuterol-Ipratrop 3 mg / 0.5 (3 ml) UD INH SCH ×4 (01:06→20:35)
--- NOTE | 2017-10-19 07:01 | CARD ---
APPROVED REPORT Date of service: 10/15/2017 EKG Measurement Heart [id number] MI 150P-5 [id number] <Conclusion> Normal sinus rhythm Nonspecific ST and T wave abnormality Prolonged QT Abnormal ECG
[2017-10-19] MEDS: Mometasone 220 mcg/puff-14 puff Inh IH SCH (08:51)
[2017-10-19] MEDS: Pantoprazole 40 mg EC Tab PO SCH (11:09)
[2017-10-19] MEDS: Enoxaparin 150 mg Syringe SC SCH ×2 (11:10→21:58)
[2017-10-19] MEDS: Potassium Chloride 20 mEq ER Tab PO SCH (11:23)
--- NOTE | 2017-10-19 11:35 | CP.PCM.PN ---
Subjective - Date & Time of Evaluation Date of Evaluation: 10/19/17 Time of Evaluation: 11:32 - Subjective Subjective: COVEIRJOSE BONNER. \ PT ALERT, LESS PAIN. , ROS; OTHERWISE NEG. Objective - Vital Signs/Intake and Output Vital Signs (last 24 hours): Temp Pulse Resp BP Pulse Ox 98.3 F 100 H 20 113/78 97 10/18/17 23:48 10/18/17 23:48 10/18/17 23:48 10/18/17 23:48 10/18/17 23:48 Intake and Output: 10/19/17 10/19/17 06:59 18:59 Intake Total 360 Output Total 1200 Balance -840 - Medications Medications: Current Medications Albuterol/Ipratropium (Duoneb 3 Mg/0.5 Mg (3 Ml) Ud) 3 ml INH RQ6 [facility] Last Admin: 10/19/17 08:51 Dose: 3 ml Anastrozole (Arimidex 1 Mg Tab) 1 mg PO DAILY [facility] Last Admin: 10/19/17 11:13 Dose: 1 mg Enoxaparin Sodium (Lovenox) 130 mg SC Q12 [facility] Last Admin: 10/19/17 11:10 Dose: 130 mg Gabapentin (Neurontin) 400 mg PO TID [facility] Last Admin: 10/19/17 11:10 Dose: 400 mg Hydrochlorothiazide (Hydrodiuril) 25 mg PO DAILY [facility] Last Admin: 10/19/17 11:10 Dose: 25 mg Lisinopril (Zestril) 20 mg PO DAILY [facility] Last Admin: 10/19/17 11:10 Dose: 20 mg Metoclopramide HCl (Reglan) 10 mg PO TID PRN PRN Reason: Nausea/Vomiting Last Admin: 10/19/17 11:10 Dose: 10 mg Mometasone Furoate (Asmanex Twisthaler 220 Mcg) 220 puff IH RQD [facility] Last Admin: 10/19/17 08:51 Dose: 1 puff Pantoprazole Sodium (Protonix Ec Tab) 40 mg PO DAILY [facility] Last Admin: 10/19/17 11:09 Dose: 40 mg Potassium Chloride (K-Dur 20 Meq Er Tab) 40 meq PO DAILY [facility] Last Admin: 10/19/17 11:23 Dose: 40 meq Tramadol HCl (Ultram) 50 mg PO Q6H PRN PRN Reason: Pain, severe (8-10) Last Admin: 10/19/17 11:11 Dose: 50 mg - Labs Labs: 10/17/17 07:34 10/17/17 07:34 PT 11.9 SECONDS (9.7-12.2) 10/15/17 12:46 INR 1.1 10/15/17 12:46 APTT 30 SECONDS (21-34) 10/15/17 12:46 - Constitutional Appears: No Acute Distress, Chronically Ill - Head Exam Head Exam: ATRAUMATIC, NORMOCEPHALIC - Eye Exam Eye Exam: EOMI, Normal appearance - ENT Exam ENT Exam: Mucous Membranes Moist - Neck Exam Neck Exam: Normal Inspection - Respiratory Exam Respiratory Exam: Decreased Breath Sounds. absent: Wheezes, Respiratory Distress - Cardiovascular Exam Cardiovascular Exam: RRR, +S1, +S2 - GI/Abdominal Exam GI & Abdominal Exam: Soft. absent: Tenderness - Rectal Exam Rectal Exam: Deferred - Extremities Exam Extremities Exam: Calf Tenderness Additional comments: LLE +JOSE G WRAPPING - Back Exam Back Exam: absent: CVA tenderness (L), CVA tenderness (R) - Neurological Exam Neurological Exam: Alert, Awake, CN II-XII Intact, Oriented x3 - Psychiatric Exam Psychiatric exam: Normal Mood - Skin Skin Exam: absent: Rash Assessment and Plan (1) Hypertension Status: Acute (2) Obesity Status: Acute (3) Asthma Status: Acute (4) Breast cancer Status: Acute (5) Deep vein thrombosis (DVT) of right lower extremity Status: Acute (6) Anemia Status: Acute (7) Metastatic cancer Status: Acute - Assessment and Plan (Free Text) Assessment: RESP STATUS COMFORTABLE AT REST. ADEQ OXYGENATION., ON LOVENOX. CONT NEB BD., PULM TOILET. CXR REVIEWED. BONE SCAN NOTED. ANALGESIA. PROG POOR. DISCUSSED WITH STAFF.
--- NOTE | 2017-10-19 17:03 | CP.PCM.PN ---
Subjective - Date & Time of Evaluation Date of Evaluation: 10/18/17 Time of Evaluation: 20:00 - Subjective Subjective: Leg pain improved s/p brace Objective - Vital Signs/Intake and Output Vital Signs (last 24 hours): Temp Pulse Resp BP Pulse Ox 98.4 F 114 H 20 92/59 L 97 10/19/17 16:00 10/19/17 16:00 10/19/17 16:00 10/19/17 16:00 10/19/17 16:00 Intake and Output: 10/19/17 10/19/17 06:59 18:59 Intake Total 360 400 Output Total 1200 500 Balance -840 -100 - Medications Medications: Current Medications Albuterol/Ipratropium (Duoneb 3 Mg/0.5 Mg (3 Ml) Ud) 3 ml INH RQ6 [facility] Last Admin: 10/19/17 13:29 Dose: 3 ml Anastrozole (Arimidex 1 Mg Tab) 1 mg PO DAILY [facility] Last Admin: 10/19/17 11:13 Dose: 1 mg Enoxaparin Sodium (Lovenox) 130 mg SC Q12 [facility] Last Admin: 10/19/17 11:10 Dose: 130 mg Gabapentin (Neurontin) 400 mg PO TID [facility] Last Admin: 10/19/17 14:18 Dose: 400 mg Hydrochlorothiazide (Hydrodiuril) 25 mg PO DAILY [facility] Last Admin: 10/19/17 11:10 Dose: 25 mg Lisinopril (Zestril) 20 mg PO DAILY [facility] Last Admin: 10/19/17 11:10 Dose: 20 mg Metoclopramide HCl (Reglan) 10 mg PO TID PRN PRN Reason: Nausea/Vomiting Last Admin: 10/19/17 11:10 Dose: 10 mg Mometasone Furoate (Asmanex Twisthaler 220 Mcg) 220 puff IH RQD [facility] Last Admin: 10/19/17 08:51 Dose: 1 puff Pantoprazole Sodium (Protonix Ec Tab) 40 mg PO DAILY [facility] Last Admin: 10/19/17 11:09 Dose: 40 mg Potassium Chloride (K-Dur 20 Meq Er Tab) 40 meq PO DAILY [facility] Last Admin: 10/19/17 11:23 Dose: 40 meq Tramadol HCl (Ultram) 50 mg PO Q6H PRN PRN Reason: Pain, severe (8-10) Last Admin: 10/19/17 11:11 Dose: 50 mg - Labs Labs: 10/17/17 07:34 10/17/17 07:34 PT 11.9 SECONDS (9.7-12.2) 10/15/17 12:46 INR 1.1 10/15/17 12:46 APTT 30 SECONDS (21-34) 10/15/17 12:46 - Head Exam Head Exam: ATRAUMATIC - Eye Exam Eye Exam: Normal appearance - ENT Exam ENT Exam: Mucous Membranes Dry - Respiratory Exam Respiratory Exam: NORMAL BREATHING PATTERN - Cardiovascular Exam Cardiovascular Exam: +S1, +S2 - GI/Abdominal Exam GI & Abdominal Exam: Normal Bowel Sounds - Extremities Exam Extremities Exam: Pedal Edema Assessment and Plan (1) Pathologic fracture Assessment & Plan: secondary to metastatic breast cancer orhopedic evaluation for fixation will need radiotherapy pending orthopedic fixation Status: Acute (2) DVT (deep venous thrombosis) Assessment & Plan: provoked from malignancy on therapeutic lovenox Status: Acute (3) Neutropenia Assessment & Plan: secondary to recent chemotherapy will give growth factor Status: Acute (4) Anemia Assessment & Plan: chronic disease and recent chemotherapy Status: Acute (5) Breast cancer Assessment & Plan: stage IV triple negative outpatient chemotherapy Status: Acute
--- NOTE | 2017-10-19 17:06 | CP.PCM.PN ---
Subjective - Date & Time of Evaluation Date of Evaluation: 10/19/17 Time of Evaluation: 15:00 - Subjective Subjective: Leg pain improved after brace Objective - Vital Signs/Intake and Output Vital Signs (last 24 hours): Temp Pulse Resp BP Pulse Ox 98.4 F 114 H 20 92/59 L 97 10/19/17 16:00 10/19/17 16:00 10/19/17 16:00 10/19/17 16:00 10/19/17 16:00 Intake and Output: 10/19/17 10/19/17 06:59 18:59 Intake Total 360 400 Output Total 1200 500 Balance -840 -100 - Medications Medications: Current Medications Albuterol/Ipratropium (Duoneb 3 Mg/0.5 Mg (3 Ml) Ud) 3 ml INH RQ6 [facility] Last Admin: 10/19/17 13:29 Dose: 3 ml Anastrozole (Arimidex 1 Mg Tab) 1 mg PO DAILY [facility] Last Admin: 10/19/17 11:13 Dose: 1 mg Enoxaparin Sodium (Lovenox) 130 mg SC Q12 [facility] Last Admin: 10/19/17 11:10 Dose: 130 mg Gabapentin (Neurontin) 400 mg PO TID [facility] Last Admin: 10/19/17 14:18 Dose: 400 mg Hydrochlorothiazide (Hydrodiuril) 25 mg PO DAILY [facility] Last Admin: 10/19/17 11:10 Dose: 25 mg Lisinopril (Zestril) 20 mg PO DAILY [facility] Last Admin: 10/19/17 11:10 Dose: 20 mg Metoclopramide HCl (Reglan) 10 mg PO TID PRN PRN Reason: Nausea/Vomiting Last Admin: 10/19/17 11:10 Dose: 10 mg Mometasone Furoate (Asmanex Twisthaler 220 Mcg) 220 puff IH RQD [facility] Last Admin: 10/19/17 08:51 Dose: 1 puff Pantoprazole Sodium (Protonix Ec Tab) 40 mg PO DAILY [facility] Last Admin: 10/19/17 11:09 Dose: 40 mg Potassium Chloride (K-Dur 20 Meq Er Tab) 40 meq PO DAILY [facility] Last Admin: 10/19/17 11:23 Dose: 40 meq Tramadol HCl (Ultram) 50 mg PO Q6H PRN PRN Reason: Pain, severe (8-10) Last Admin: 10/19/17 11:11 Dose: 50 mg - Labs Labs: 10/17/17 07:34 10/17/17 07:34 PT 11.9 SECONDS (9.7-12.2) 10/15/17 12:46 INR 1.1 10/15/17 12:46 APTT 30 SECONDS (21-34) 10/15/17 12:46 - Head Exam Head Exam: ATRAUMATIC - Eye Exam Eye Exam: Normal appearance - ENT Exam ENT Exam: Mucous Membranes Dry - Respiratory Exam Respiratory Exam: NORMAL BREATHING PATTERN - Cardiovascular Exam Cardiovascular Exam: +S1, +S2 - GI/Abdominal Exam GI & Abdominal Exam: Normal Bowel Sounds - Extremities Exam Extremities Exam: Pedal Edema - Neurological Exam Neurological Exam: Oriented x3 - Psychiatric Exam Psychiatric exam: Normal Affect, Normal Mood - Skin Skin Exam: Warm Assessment and Plan (1) Pathologic fracture Assessment & Plan: orthopedic evaluation for surgical fixation will need radiotherapy pending surgery Status: Acute (2) DVT (deep venous thrombosis) Assessment & Plan: provoked from malignancy on therapeutic lovenox Status: Acute (3) Neutropenia Assessment & Plan: secondary to chemotherapy s/p growth factor support repeat CBC in AM Status: Acute (4) Anemia Assessment & Plan: chemotherapy and chronic disease repeat CBC in AM Status: Acute (5) Breast cancer Assessment & Plan: stage IV triple negative outpatient chemotherapy Status: Acute
--- NOTE | 2017-10-19 17:43 | CP.PCM.PN ---
Subjective - Date & Time of Evaluation Date of Evaluation: 10/17/17 Time of Evaluation: 12:15 - Subjective Subjective: Has some leg pain. Objective - Vital Signs/Intake and Output Vital Signs (last 24 hours): Temp Pulse Resp BP Pulse Ox 98.4 F 114 H 20 92/59 L 97 10/19/17 16:00 10/19/17 16:00 10/19/17 16:00 10/19/17 16:00 10/19/17 16:00 Intake and Output: 10/19/17 10/19/17 06:59 18:59 Intake Total 360 400 Output Total 1200 500 Balance -840 -100 - Medications Medications: Current Medications Albuterol/Ipratropium (Duoneb 3 Mg/0.5 Mg (3 Ml) Ud) 3 ml INH RQ6 [facility] Last Admin: 10/19/17 13:29 Dose: 3 ml Anastrozole (Arimidex 1 Mg Tab) 1 mg PO DAILY [facility] Last Admin: 10/19/17 11:13 Dose: 1 mg Enoxaparin Sodium (Lovenox) 130 mg SC Q12 [facility] Last Admin: 10/19/17 11:10 Dose: 130 mg Gabapentin (Neurontin) 400 mg PO TID [facility] Last Admin: 10/19/17 17:14 Dose: 400 mg Hydrochlorothiazide (Hydrodiuril) 25 mg PO DAILY [facility] Last Admin: 10/19/17 11:10 Dose: 25 mg Lisinopril (Zestril) 20 mg PO DAILY [facility] Last Admin: 10/19/17 11:10 Dose: 20 mg Metoclopramide HCl (Reglan) 10 mg PO TID PRN PRN Reason: Nausea/Vomiting Last Admin: 10/19/17 11:10 Dose: 10 mg Mometasone Furoate (Asmanex Twisthaler 220 Mcg) 220 puff IH RQD [facility] Last Admin: 10/19/17 08:51 Dose: 1 puff Pantoprazole Sodium (Protonix Ec Tab) 40 mg PO DAILY [facility] Last Admin: 10/19/17 11:09 Dose: 40 mg Potassium Chloride (K-Dur 20 Meq Er Tab) 40 meq PO DAILY [facility] Last Admin: 10/19/17 11:23 Dose: 40 meq Tramadol HCl (Ultram) 50 mg PO Q6H PRN PRN Reason: Pain, severe (8-10) Last Admin: 10/19/17 11:11 Dose: 50 mg - Labs Labs: 10/17/17 07:34 10/17/17 07:34 PT 11.9 SECONDS (9.7-12.2) 10/15/17 12:46 INR 1.1 10/15/17 12:46 APTT 30 SECONDS (21-34) 10/15/17 12:46 - Head Exam Head Exam: ATRAUMATIC - Eye Exam Eye Exam: Normal appearance - ENT Exam ENT Exam: Mucous Membranes Dry - Respiratory Exam Respiratory Exam: NORMAL BREATHING PATTERN - Cardiovascular Exam Cardiovascular Exam: +S1, +S2 - GI/Abdominal Exam GI & Abdominal Exam: Normal Bowel Sounds - Extremities Exam Extremities Exam: Pedal Edema Assessment and Plan (1) Pathologic fracture Assessment & Plan: left LE likely from bone metastasis will consult orthopedics Dr. Valdes for evaluation; ? need for fixation will likely also need radiotherapy Status: Acute (2) DVT (deep venous thrombosis) Assessment & Plan: provoked from malignancy on therapeutic lovenox Status: Acute (3) Neutropenia Assessment & Plan: on Granix Status: Acute (4) Anemia Assessment & Plan: chronic disease and chemotherapy. Status: Acute (5) Breast cancer Assessment & Plan: triple negative outpatient chemotherapy Status: Acute
[2017-10-20] MEDS: Albuterol-Ipratrop 3 mg / 0.5 (3 ml) UD INH SCH ×4 (01:13→19:20)
[2017-10-20 08:04] LABS: BASO # 0.1 K/uL (0.0-0.2); BASO % 0.6 % (0.0-2.0); EOS % 0.4 % (0.0-4.0); HEMOGLOBIN 9.9 g/dL (11.0-16.0); LYMPH # 1.8 K/uL (1.0-4.3); LYMPH % 19.5 % (20.0-40.0); MEAN CELL VOLUME 77.6 fL (81.0-99.0); MEAN CORPUSCULAR HEMOGLOBIN 25.6 pg (27.0-31.0); MEAN PLATELET VOLUME 7.7 fL (7.2-11.7); MONO # 0.6 K/uL (0.0-0.8); MONO % 6.7 % (0.0-10.0); NEUT # 6.6 K/uL (1.8-7.0); NEUT % 72.8 % (50.0-75.0); NRBC % 1.5 % (0.0-2.0); RBC 3.85 Mil/uL (3.80-5.20); RED CELL DISTRIBUTION WIDTH 17.9 % (11.5-14.5)
[2017-10-20] MEDS: Mometasone 220 mcg/puff-14 puff Inh IH SCH ×2 (08:37→19:21)
[2017-10-20] MEDS: Potassium Chloride 20 mEq ER Tab PO SCH (09:06)
[2017-10-20] MEDS: Enoxaparin 150 mg Syringe SC SCH ×2 (09:07→21:19)
[2017-10-20] MEDS: Pantoprazole 40 mg EC Tab PO SCH (09:07)
[2017-10-20] MEDS ORDERED: Midazolam 2 MG/2 ML VIAL ONE (11:36)
--- NOTE | 2017-10-20 12:53 | CP.PCM.PN ---
Subjective - Date & Time of Evaluation Date of Evaluation: 10/20/17 Time of Evaluation: 12:51 - Subjective Subjective: COVERING DR Nate BONNER. PT ALERT, PAIN NO CHANGE. ROS ; OTHERWISE NEG. Objective - Vital Signs/Intake and Output Vital Signs (last 24 hours): Temp Pulse Resp BP Pulse Ox 98.7 F 94 H 20 102/69 95 10/20/17 07:38 10/20/17 07:38 10/20/17 07:38 10/20/17 07:38 10/20/17 07:38 Intake and Output: 10/20/17 10/20/17 06:59 18:59 Intake Total 500 Output Total 350 Balance 150 - Medications Medications: Current Medications Albuterol/Ipratropium (Duoneb 3 Mg/0.5 Mg (3 Ml) Ud) 3 ml INH RQ6 [facility] Last Admin: 10/20/17 08:29 Dose: 3 ml Anastrozole (Arimidex 1 Mg Tab) 1 mg PO DAILY [facility] Last Admin: 10/20/17 09:06 Dose: Not Given Enoxaparin Sodium (Lovenox) 130 mg SC Q12 [facility] Last Admin: 10/20/17 09:07 Dose: Not Given Gabapentin (Neurontin) 400 mg PO TID [facility] Last Admin: 10/20/17 09:07 Dose: Not Given Hydrochlorothiazide (Hydrodiuril) 25 mg PO DAILY [facility] Last Admin: 10/20/17 09:06 Dose: Not Given Lisinopril (Zestril) 20 mg PO DAILY [facility] Last Admin: 10/20/17 09:07 Dose: Not Given Metoclopramide HCl (Reglan) 10 mg PO TID PRN PRN Reason: Nausea/Vomiting Last Admin: 10/19/17 11:10 Dose: 10 mg Mometasone Furoate (Asmanex Twisthaler 220 Mcg) 220 puff IH RQD [facility] Last Admin: 10/20/17 08:37 Dose: Not Given Pantoprazole Sodium (Protonix Ec Tab) 40 mg PO DAILY [facility] Last Admin: 10/20/17 09:07 Dose: Not Given Potassium Chloride (K-Dur 20 Meq Er Tab) 40 meq PO DAILY [facility] Last Admin: 10/20/17 09:06 Dose: Not Given Tramadol HCl (Ultram) 50 mg PO Q6H PRN PRN Reason: Pain, severe (8-10) Last Admin: 10/19/17 11:11 Dose: 50 mg - Labs Labs: 10/20/17 07:45 10/17/17 07:34 PT 11.9 SECONDS (9.7-12.2) 10/15/17 12:46 INR 1.1 10/15/17 12:46 APTT 30 SECONDS (21-34) 10/15/17 12:46 - Constitutional Appears: No Acute Distress, Chronically Ill - Head Exam Head Exam: ATRAUMATIC, NORMOCEPHALIC - Eye Exam Eye Exam: EOMI, Normal appearance - ENT Exam ENT Exam: Mucous Membranes Moist - Neck Exam Neck Exam: Normal Inspection - Respiratory Exam Respiratory Exam: absent: Wheezes, Respiratory Distress - Cardiovascular Exam Cardiovascular Exam: RRR, +S1, +S2 - GI/Abdominal Exam GI & Abdominal Exam: Soft. absent: Tenderness - Rectal Exam Rectal Exam: Deferred - Extremities Exam Extremities Exam: Calf Tenderness, Pedal Edema - Neurological Exam Neurological Exam: Alert, Awake, CN II-XII Intact, Oriented x3 - Psychiatric Exam Psychiatric exam: Normal Mood - Skin Skin Exam: absent: Rash Assessment and Plan (1) Hypertension Status: Acute (2) Obesity Status: Acute (3) Asthma Status: Acute (4) Breast cancer Status: Acute (5) Deep vein thrombosis (DVT) of right lower extremity Status: Acute (6) Anemia Status: Acute (7) Metastatic cancer Status: Acute - Assessment and Plan (Free Text) Assessment: RESP STATUS NO SIG CHANGE. CONT PULM TOILET., ADEQ OXYGENATION., CXR REVIEWED., BONE SCAN REVIEWED., BONE BX CANCELLED., PROG POOR.,DISCUSSED WITH STAFF AT LENGTH AND DR HERNANDES.
--- NOTE | 2017-10-20 12:55 | CP.PCM.PN ---
Subjective - Date & Time of Evaluation Date of Evaluation: 10/20/17 Time of Evaluation: 14:06 - Subjective Subjective: Patient states pain in her left leg is a little better. Objective - Vital Signs/Intake and Output Vital Signs (last 24 hours): Temp Pulse Resp BP Pulse Ox 98.7 F 94 H 20 102/69 95 10/20/17 07:38 10/20/17 07:38 10/20/17 07:38 10/20/17 07:38 10/20/17 07:38 Intake and Output: 10/20/17 10/20/17 06:59 18:59 Intake Total 500 Output Total 350 Balance 150 - Medications Medications: Current Medications Albuterol/Ipratropium (Duoneb 3 Mg/0.5 Mg (3 Ml) Ud) 3 ml INH RQ6 [facility] Last Admin: 10/20/17 08:29 Dose: 3 ml Anastrozole (Arimidex 1 Mg Tab) 1 mg PO DAILY [facility] Last Admin: 10/20/17 09:06 Dose: Not Given Enoxaparin Sodium (Lovenox) 130 mg SC Q12 [facility] Last Admin: 10/20/17 09:07 Dose: Not Given Gabapentin (Neurontin) 400 mg PO TID [facility] Last Admin: 10/20/17 09:07 Dose: Not Given Hydrochlorothiazide (Hydrodiuril) 25 mg PO DAILY [facility] Last Admin: 10/20/17 09:06 Dose: Not Given Lisinopril (Zestril) 20 mg PO DAILY [facility] Last Admin: 10/20/17 09:07 Dose: Not Given Metoclopramide HCl (Reglan) 10 mg PO TID PRN PRN Reason: Nausea/Vomiting Last Admin: 10/19/17 11:10 Dose: 10 mg Mometasone Furoate (Asmanex Twisthaler 220 Mcg) 220 puff IH RQD [facility] Last Admin: 10/20/17 08:37 Dose: Not Given Pantoprazole Sodium (Protonix Ec Tab) 40 mg PO DAILY [facility] Last Admin: 10/20/17 09:07 Dose: Not Given Potassium Chloride (K-Dur 20 Meq Er Tab) 40 meq PO DAILY [facility] Last Admin: 10/20/17 09:06 Dose: Not Given Tramadol HCl (Ultram) 50 mg PO Q6H PRN PRN Reason: Pain, severe (8-10) Last Admin: 10/19/17 11:11 Dose: 50 mg - Labs Labs: 10/20/17 07:45 10/17/17 07:34 PT 11.9 SECONDS (9.7-12.2) 10/15/17 12:46 INR 1.1 10/15/17 12:46 APTT 30 SECONDS (21-34) 10/15/17 12:46 - Extremities Exam Additional comments: Left knee immob intact, +ROM ankle/toes, sensation intact, +DP/pT pulses Assessment and Plan (1) Pathological fracture, left tibia, initial encounter for fracture Assessment & Plan: plan for left proximal tibial replacement on Wednesday 10/[address] Valdes bx cancelled (known bony mets and prior bx) d/w Dr. Vlades, agrees with above Status: Acute (2) Breast cancer metastasized to bone Status: Acute (3) DVT (deep venous thrombosis) Status: Acute (4) Neutropenia Assessment & Plan: improved as off chemo Status: Acute
[2017-10-21] MEDS: Albuterol-Ipratrop 3 mg / 0.5 (3 ml) UD INH SCH ×4 (01:31→19:57)
[2017-10-21] MEDS: Potassium Chloride 20 mEq ER Tab PO SCH (11:00)
[2017-10-21] MEDS: Pantoprazole 40 mg EC Tab PO SCH (11:00)
[2017-10-21] MEDS: Mometasone 220 mcg/puff-14 puff Inh IH SCH (13:06)
--- NOTE | 2017-10-21 14:30 | CP.PCM.PN ---
Subjective - Date & Time of Evaluation Date of Evaluation: 10/21/17 Time of Evaluation: 07:00 - Subjective Subjective: clinically same Objective - Vital Signs/Intake and Output Vital Signs (last 24 hours): Temp Pulse Resp BP Pulse Ox 98.1 F 91 H 20 118/62 95 10/21/17 07:37 10/21/17 07:37 10/21/17 07:37 10/21/17 07:37 10/21/17 07:37 Intake and Output: 10/21/17 10/21/17 06:59 18:59 Output Total 300 Balance -300 - Medications Medications: Current Medications Albuterol/Ipratropium (Duoneb 3 Mg/0.5 Mg (3 Ml) Ud) 3 ml INH RQ6 [facility] Last Admin: 10/21/17 13:04 Dose: 3 ml Anastrozole (Arimidex 1 Mg Tab) 1 mg PO DAILY [facility] Last Admin: 10/21/17 11:00 Dose: 1 mg Enoxaparin Sodium (Lovenox) 130 mg SC Q12 [facility] Gabapentin (Neurontin) 400 mg PO TID [facility] Last Admin: 10/21/17 11:00 Dose: 400 mg Hydrochlorothiazide (Hydrodiuril) 25 mg PO DAILY [facility] Last Admin: 10/21/17 11:00 Dose: 25 mg Lisinopril (Zestril) 20 mg PO DAILY [facility] Last Admin: 10/21/17 11:00 Dose: 20 mg Metoclopramide HCl (Reglan) 10 mg PO TID PRN PRN Reason: Nausea/Vomiting Last Admin: 10/19/17 11:10 Dose: 10 mg Mometasone Furoate (Asmanex Twisthaler 220 Mcg) 220 puff IH RQD [facility] Last Admin: 10/21/17 13:06 Dose: 1 puff Pantoprazole Sodium (Protonix Ec Tab) 40 mg PO DAILY [facility] Last Admin: 10/21/17 11:00 Dose: 40 mg Potassium Chloride (K-Dur 20 Meq Er Tab) 40 meq PO DAILY [facility] Last Admin: 10/21/17 11:00 Dose: 40 meq Tramadol HCl (Ultram) 50 mg PO Q6H PRN PRN Reason: Pain, severe (8-10) Last Admin: 10/19/17 11:11 Dose: 50 mg - Labs Labs: 10/20/17 07:45 10/17/17 07:34 PT 11.9 SECONDS (9.7-12.2) 10/15/17 12:46 INR 1.1 10/15/17 12:46 APTT 30 SECONDS (21-34) 10/15/17 12:46 - Constitutional Appears: Well - Head Exam Head Exam: ATRAUMATIC, NORMAL INSPECTION, NORMOCEPHALIC - Eye Exam Eye Exam: EOMI, Normal appearance, PERRL Pupil Exam: NORMAL ACCOMODATION, PERRL - ENT Exam ENT Exam: Mucous Membranes Moist, Normal Exam - Neck Exam Neck Exam: Full ROM, Normal Inspection. absent: Lymphadenopathy - Respiratory Exam Respiratory Exam: Decreased Breath Sounds - Cardiovascular Exam Cardiovascular Exam: REGULAR RHYTHM, +S1, +S2 - GI/Abdominal Exam GI & Abdominal Exam: Soft, Diminished Bowel Sounds - Rectal Exam Rectal Exam: Deferred
--- NOTE | 2017-10-21 18:30 | CP.PCM.PN ---
Subjective - Date & Time of Evaluation Date of Evaluation: 10/21/17 Time of Evaluation: 13:05 - Subjective Subjective: Has some left leg pain. Objective - Vital Signs/Intake and Output Vital Signs (last 24 hours): Temp Pulse Resp BP Pulse Ox 98.6 F 97 H 20 118/77 100 10/21/17 15:50 10/21/17 15:50 10/21/17 15:50 10/21/17 15:50 10/21/17 15:50 Intake and Output: 10/21/17 10/21/17 06:59 18:59 Intake Total 480 Output Total 300 400 Balance -300 80 - Medications Medications: Current Medications Albuterol/Ipratropium (Duoneb 3 Mg/0.5 Mg (3 Ml) Ud) 3 ml INH RQ6 [facility] Last Admin: 10/21/17 13:04 Dose: 3 ml Anastrozole (Arimidex 1 Mg Tab) 1 mg PO DAILY [facility] Last Admin: 10/21/17 11:00 Dose: 1 mg Enoxaparin Sodium (Lovenox) 130 mg SC Q12 [facility] Gabapentin (Neurontin) 400 mg PO TID [facility] Last Admin: 10/21/17 17:46 Dose: 400 mg Hydrochlorothiazide (Hydrodiuril) 25 mg PO DAILY [facility] Last Admin: 10/21/17 11:00 Dose: 25 mg Lisinopril (Zestril) 20 mg PO DAILY [facility] Last Admin: 10/21/17 11:00 Dose: 20 mg Metoclopramide HCl (Reglan) 10 mg PO TID PRN PRN Reason: Nausea/Vomiting Last Admin: 10/19/17 11:10 Dose: 10 mg Mometasone Furoate (Asmanex Twisthaler 220 Mcg) 220 puff IH RQD [facility] Last Admin: 10/21/17 13:06 Dose: 1 puff Pantoprazole Sodium (Protonix Ec Tab) 40 mg PO DAILY [facility] Last Admin: 10/21/17 11:00 Dose: 40 mg Potassium Chloride (K-Dur 20 Meq Er Tab) 40 meq PO DAILY [facility] Last Admin: 10/21/17 11:00 Dose: 40 meq Tramadol HCl (Ultram) 50 mg PO Q6H PRN PRN Reason: Pain, severe (8-10) Last Admin: 10/19/17 11:11 Dose: 50 mg - Labs Labs: 10/20/17 07:45 10/17/17 07:34 PT 11.9 SECONDS (9.7-12.2) 10/15/17 12:46 INR 1.1 10/15/17 12:46 APTT 30 SECONDS (21-34) 10/15/17 12:46 - Head Exam Head Exam: ATRAUMATIC - Eye Exam Eye Exam: Normal appearance - ENT Exam ENT Exam: Mucous Membranes Dry - Respiratory Exam Respiratory Exam: NORMAL BREATHING PATTERN - Cardiovascular Exam Cardiovascular Exam: +S1, +S2 - GI/Abdominal Exam GI & Abdominal Exam: Normal Bowel Sounds Assessment and Plan (1) Pathologic fracture Assessment & Plan: for orthopedic surgery outpatient radiotherapy Status: Acute (2) DVT (deep venous thrombosis) Assessment & Plan: on therapeutic lovenox Status: Acute (3) Anemia Assessment & Plan: chronic disease, chemotherapy. Status: Acute (4) Breast cancer Assessment & Plan: stage IV triple negative outpatient treatment Status: Acute
--- NOTE | 2017-10-21 19:03 | CP.PCM.PN ---
Subjective - Date & Time of Evaluation Date of Evaluation: 10/20/17 Time of Evaluation: 18:15 - Subjective Subjective: Has some left leg pain. Objective - Vital Signs/Intake and Output Vital Signs (last 24 hours): Temp Pulse Resp BP Pulse Ox 98.6 F 97 H 20 118/77 100 10/21/17 15:50 10/21/17 15:50 10/21/17 15:50 10/21/17 15:50 10/21/17 15:50 Intake and Output: 10/21/17 10/22/17 18:59 06:59 Intake Total 480 Output Total 400 Balance 80 - Medications Medications: Current Medications Albuterol/Ipratropium (Duoneb 3 Mg/0.5 Mg (3 Ml) Ud) 3 ml INH RQ6 [facility] Last Admin: 10/21/17 13:04 Dose: 3 ml Anastrozole (Arimidex 1 Mg Tab) 1 mg PO DAILY [facility] Last Admin: 10/21/17 11:00 Dose: 1 mg Enoxaparin Sodium (Lovenox) 130 mg SC Q12 [facility] Gabapentin (Neurontin) 400 mg PO TID [facility] Last Admin: 10/21/17 17:46 Dose: 400 mg Hydrochlorothiazide (Hydrodiuril) 25 mg PO DAILY [facility] Last Admin: 10/21/17 11:00 Dose: 25 mg Lisinopril (Zestril) 20 mg PO DAILY [facility] Last Admin: 10/21/17 11:00 Dose: 20 mg Metoclopramide HCl (Reglan) 10 mg PO TID PRN PRN Reason: Nausea/Vomiting Last Admin: 10/19/17 11:10 Dose: 10 mg Mometasone Furoate (Asmanex Twisthaler 220 Mcg) 220 puff IH RQD [facility] Last Admin: 10/21/17 13:06 Dose: 1 puff Pantoprazole Sodium (Protonix Ec Tab) 40 mg PO DAILY [facility] Last Admin: 10/21/17 11:00 Dose: 40 mg Potassium Chloride (K-Dur 20 Meq Er Tab) 40 meq PO DAILY [facility] Last Admin: 10/21/17 11:00 Dose: 40 meq Tramadol HCl (Ultram) 50 mg PO Q6H PRN PRN Reason: Pain, severe (8-10) Last Admin: 10/19/17 11:11 Dose: 50 mg - Labs Labs: 10/20/17 07:45 10/17/17 07:34 PT 11.9 SECONDS (9.7-12.2) 10/15/17 12:46 INR 1.1 10/15/17 12:46 APTT 30 SECONDS (21-34) 10/15/17 12:46 - Head Exam Head Exam: ATRAUMATIC - Eye Exam Eye Exam: Normal appearance - ENT Exam ENT Exam: Mucous Membranes Dry - Respiratory Exam Respiratory Exam: NORMAL BREATHING PATTERN - Cardiovascular Exam Cardiovascular Exam: +S1, +S2 - GI/Abdominal Exam GI & Abdominal Exam: Normal Bowel Sounds Assessment and Plan (1) Pathologic fracture Assessment & Plan: for orthopedic surgery Status: Acute (2) DVT (deep venous thrombosis) Assessment & Plan: on therapeutic lovenox Status: Acute (3) Anemia Assessment & Plan: chronic disease and chemotherapy Status: Acute (4) Breast cancer Assessment & Plan: stage IV triple negative outpatient treatment Status: Acute
[2017-10-21] MEDS: Enoxaparin 150 mg Syringe SC SCH (21:23)
[2017-10-22] MEDS: Albuterol-Ipratrop 3 mg / 0.5 (3 ml) UD INH SCH ×4 (01:27→20:39)
[2017-10-22] MEDS: Mometasone 220 mcg/puff-14 puff Inh IH SCH (07:21)
[2017-10-22] MEDS: Potassium Chloride 20 mEq ER Tab PO SCH (09:41)
[2017-10-22] MEDS: Enoxaparin 150 mg Syringe SC SCH ×2 (09:42→22:04)
[2017-10-22] MEDS: Pantoprazole 40 mg EC Tab PO SCH (09:42)
--- NOTE | 2017-10-22 09:50 | CP.PCM.PN ---
Subjective - Date & Time of Evaluation Date of Evaluation: 10/22/17 Time of Evaluation: 09:47 - Subjective Subjective: Patient says pain in left leg is controlled. No new complaints/ Objective - Vital Signs/Intake and Output Vital Signs (last 24 hours): Temp Pulse Resp BP Pulse Ox 98.5 F 101 H 20 113/78 96 10/22/17 07:55 10/22/17 07:55 10/22/17 07:55 10/22/17 07:55 10/22/17 07:55 Intake and Output: 10/22/17 10/22/17 06:59 18:59 Intake Total 740 Output Total 1000 Balance -260 - Medications Medications: Current Medications Albuterol/Ipratropium (Duoneb 3 Mg/0.5 Mg (3 Ml) Ud) 3 ml INH RQ6 [facility] Last Admin: 10/22/17 07:21 Dose: 3 ml Anastrozole (Arimidex 1 Mg Tab) 1 mg PO DAILY [facility] Last Admin: 10/21/17 11:00 Dose: 1 mg Enoxaparin Sodium (Lovenox) 130 mg SC Q12 [facility] Last Admin: 10/21/17 21:23 Dose: 130 mg Gabapentin (Neurontin) 400 mg PO TID [facility] Last Admin: 10/21/17 17:46 Dose: 400 mg Hydrochlorothiazide (Hydrodiuril) 25 mg PO DAILY [facility] Last Admin: 10/21/17 11:00 Dose: 25 mg Lisinopril (Zestril) 20 mg PO DAILY [facility] Last Admin: 10/21/17 11:00 Dose: 20 mg Metoclopramide HCl (Reglan) 10 mg PO TID PRN PRN Reason: Nausea/Vomiting Last Admin: 10/19/17 11:10 Dose: 10 mg Mometasone Furoate (Asmanex Twisthaler 220 Mcg) 220 puff IH RQD [facility] Last Admin: 10/22/17 07:21 Dose: 1 puff Pantoprazole Sodium (Protonix Ec Tab) 40 mg PO DAILY [facility] Last Admin: 10/21/17 11:00 Dose: 40 mg Potassium Chloride (K-Dur 20 Meq Er Tab) 40 meq PO DAILY [facility] Last Admin: 10/21/17 11:00 Dose: 40 meq Tramadol HCl (Ultram) 50 mg PO Q6H PRN PRN Reason: Pain, severe (8-10) Last Admin: 10/22/17 00:59 Dose: 50 mg - Labs Labs: 10/20/17 07:45 10/17/17 07:34 PT 11.9 SECONDS (9.7-12.2) 10/15/17 12:46 INR 1.1 10/15/17 12:46 APTT 30 SECONDS (21-34) 10/15/17 12:46 - Extremities Exam Additional comments: LLE: +ROM ankle/toes, sensation intact +DP/PT pulses Assessment and Plan (1) Pathological fracture, left tibia, initial encounter for fracture Assessment & Plan: d/w Dr. Valdes for proximal tibial replacement on Wednesday 2pm Dr. Valdes requests vascular consult for arteriogram for LLE preop, Dr. Lorenz consulted T&C Status: Acute (2) Breast cancer metastasized to bone Status: Acute (3) DVT (deep venous thrombosis) Status: Acute
--- NOTE | 2017-10-22 11:17 | CP.PCM.CON ---
History of Present Illness - History of Present Illness History of Present Illness: 57F with PMHx of HTN, recurrent stage 4 breast cancer, and asthma presents with non-radiating, constant, achy left zuniga pain that began over 2 months ago due to an unknown cause. Patients sx. worsened over time and were further exacerbated by a fall 1 month ago where she experienced direct impact over the left zuniga. She notes overall swelling of the LLE below the knee and sharp pains when she walks that is relieved with rest. She is currently non-ambulatory and is wheelchair bound. She was admitted to the ED 1 week ago due to a DVT of the RLE which is currently being treated with Lovenox. Doppler over the LLE was negative and follow up CT showed metastatic disease to the left leg. PMHx - HTN, recurrent stage 4 breast cancer, asthma PSHx - double mastectomy, Allergies - NKDA Social - denies TAD use Review of Systems - Constitutional Constitutional: Weakness. absent: Chills, Fever - EENT Eyes: absent: Blurred Vision, Change in Vision Ears: absent: Decreased Hearing, Ear Discharge Nose/Mouth/Throat: absent: Nasal Congestion, Nasal Discharge - Cardiovascular Cardiovascular: absent: Chest Pain, Dyspnea - Respiratory Respiratory: absent: Cough, Dyspnea - Gastrointestinal Gastrointestinal: absent: Abdominal Pain, Bloating, Nausea, Vomiting - Genitourinary Genitourinary: absent: Difficulty Urinating, Dysuria - Musculoskeletal Musculoskeletal: Joint Swelling, Limited Range of Motion Additional comments: LLE swollen and tender - Integumentary Integumentary: absent: Bleeding Lesions, Changing Lesions - Psychiatric Psychiatric: absent: Anxiety, Depression Past Patient History - Past Medical History & Family History Past Medical History?: Yes Past Family History: Reviewed and not pertinent - Past Social History Smoking Status: Never Smoked - CARDIAC Hx Hypertension: Yes Hx Pacemaker: No - PULMONARY Hx Asthma: Yes (CHILDHOOD NO MEDS) Hx Pneumonia: Yes (Childhood) Hx Sleep Apnea: No - NEUROLOGICAL Hx Neurological Disorder: No - HEENT Hx HEENT Problems: No Other/Comment: GLASSES - RENAL Hx Chronic Kidney Disease: No - ENDOCRINE/METABOLIC Hx Endocrine Disorders: No - HEMATOLOGICAL/ONCOLOGICAL Hx Cancer: Yes (breast 2018) Other/Comment: in chemotherapy every wednesday - INTEGUMENTARY Hx Dermatological Problems: No - MUSCULOSKELETAL/RHEUMATOLOGICAL Hx Fractures: Yes (TOE/ARM NO SURGERY) - GENITOURINARY/GYNECOLOGICAL Hx Genitourinary Disorders: Yes Other/Comment: right breast cancer - PSYCHIATRIC Hx Substance Use: No - SURGICAL HISTORY Hx Surgeries: Yes Hx Section: Yes (one) Other/Comment: breast removal s/p breast ca july 2014. - ANESTHESIA Hx Anesthesia: Yes Hx Anesthesia Reactions: No Hx Malignant Hyperthermia: No Meds Allergies/Adverse Reactions: Allergies Allergy/AdvReac Type Severity Reaction Status Date / Time No Known Allergies Allergy Verified 10/15/17 11:17 - Medications Medications: Current Medications Albuterol/Ipratropium (Duoneb 3 Mg/0.5 Mg (3 Ml) Ud) 3 ml INH RQ6 [facility] Last Admin: 10/22/17 07:21 Dose: 3 ml Anastrozole (Arimidex 1 Mg Tab) 1 mg PO DAILY [facility] Last Admin: 10/22/17 09:48 Dose: 1 mg Enoxaparin Sodium (Lovenox) 130 mg SC Q12 [facility] Last Admin: 10/22/17 09:42 Dose: 130 mg Gabapentin (Neurontin) 400 mg PO TID [facility] Last Admin: 10/22/17 09:42 Dose: 400 mg Hydrochlorothiazide (Hydrodiuril) 25 mg PO DAILY [facility] Last Admin: 10/22/17 09:42 Dose: 25 mg Lisinopril (Zestril) 20 mg PO DAILY [facility] Last Admin: 10/22/17 09:41 Dose: 20 mg Metoclopramide HCl (Reglan) 10 mg PO TID PRN PRN Reason: Nausea/Vomiting Last Admin: 10/19/17 11:10 Dose: 10 mg Mometasone Furoate (Asmanex Twisthaler 220 Mcg) 220 puff IH RQD [facility] Last Admin: 10/22/17 07:21 Dose: 1 puff Pantoprazole Sodium (Protonix Ec Tab) 40 mg PO DAILY [facility] Last Admin: 10/22/17 09:42 Dose: 40 mg Potassium Chloride (K-Dur 20 Meq Er Tab) 40 meq PO DAILY [facility] Last Admin: 10/22/17 09:41 Dose: 40 meq Tramadol HCl (Ultram) 50 mg PO Q6H PRN PRN Reason: Pain, severe (8-10) Last Admin: 10/22/17 00:59 Dose: 50 mg Physical Exam - Constitutional Appears: Well, Non-toxic, No Acute Distress - Head Exam Head Exam: ATRAUMATIC, NORMAL INSPECTION, NORMOCEPHALIC - Eye Exam Eye Exam: EOMI, Normal appearance - Respiratory Exam Respiratory Exam: Clear to Auscultation Bilateral, NORMAL BREATHING PATTERN - Cardiovascular Exam Cardiovascular Exam: REGULAR RHYTHM, +S1, +S2 - GI/Abdominal Exam GI & Abdominal Exam: Normal Bowel Sounds, Soft. absent: Tenderness - Rectal Exam Rectal Exam: Deferred - Extremities Exam Additional comments: LLE swollen and tender Palpable 2+ LE DP and PT pulses - Neurological Exam Neurological exam: Alert, Oriented x3 - Psychiatric Exam Psychiatric exam: Normal Affect, Normal Mood Results - Vital Signs Recent Vital Signs: Last Vital Signs Temp 98.5 F 10/22/17 07:55 Pulse 101 H 10/22/17 07:55 Resp 20 10/22/17 07:55 BP 113/78 10/22/17 07:55 Pulse Ox 96 10/22/17 07:55 - Labs Result Diagrams: 10/20/17 07:45 10/17/17 07:34 Assessment & Plan - Assessment and Plan (Free Text) Assessment: 57F w/ LLE pain 2/2 metastatic breast cancer Plan: -recommend CTA -recommend IVC filter placement for Wednesday -further recs per Dr. Kelechi Dockery PGY1
--- NOTE | 2017-10-22 12:38 | CP.PCM.PN ---
Subjective - Date & Time of Evaluation Date of Evaluation: 10/22/17 Time of Evaluation: 11:00 - Subjective Subjective: Pain well controlled. Objective - Vital Signs/Intake and Output Vital Signs (last 24 hours): Temp Pulse Resp BP Pulse Ox 98.5 F 101 H 20 113/78 96 10/22/17 07:55 10/22/17 07:55 10/22/17 07:55 10/22/17 07:55 10/22/17 07:55 Intake and Output: 10/22/17 10/22/17 06:59 18:59 Intake Total 740 Output Total 1000 Balance -260 - Medications Medications: Current Medications Albuterol/Ipratropium (Duoneb 3 Mg/0.5 Mg (3 Ml) Ud) [address] [facility] Last Admin: 10/22/17 07:21 Dose: 3 ml Anastrozole (Arimidex 1 Mg Tab) [address] [facility] Last Admin: 10/22/17 09:48 Dose: 1 mg Enoxaparin Sodium (Lovenox) [address] [facility] Last Admin: 10/22/17 09:42 Dose: 130 mg Gabapentin (Neurontin) [address] [facility] Last Admin: 10/22/17 09:42 Dose: 400 mg Hydrochlorothiazide (Hydrodiuril) [address] [facility] Last Admin: 10/22/17 09:42 Dose: 25 mg Lisinopril (Zestril) [address] [facility] Last Admin: 10/22/17 09:41 Dose: 20 mg Metoclopramide HCl (Reglan) 10 mg PO TID PRN PRN Reason: Nausea/Vomiting Last Admin: 10/19/17 11:10 Dose: 10 mg Mometasone Furoate (Asmanex Twisthaler 220 Mcg) [address] [facility] Last Admin: 10/22/17 07:21 Dose: 1 puff Pantoprazole Sodium (Protonix Ec Tab) [address] [facility] Last Admin: 10/22/17 09:42 Dose: 40 mg Potassium Chloride (K-Dur 20 Meq Er Tab) [address] [facility] Last Admin: 10/22/17 09:41 Dose: 40 meq Tramadol HCl (Ultram) 50 mg PO Q6H PRN PRN Reason: Pain, severe (8-10) Last Admin: 10/22/17 00:59 Dose: 50 mg - Labs Labs: 10/20/17 07:45 10/17/17 07:34 PT 11.9 SECONDS (9.7-12.2) 10/15/17 12:46 INR 1.1 10/15/17 12:46 APTT 30 SECONDS (21-34) 10/15/17 12:46 - Head Exam Head Exam: ATRAUMATIC - Eye Exam Eye Exam: Normal appearance - ENT Exam ENT Exam: Mucous Membranes Dry - Respiratory Exam Respiratory Exam: NORMAL BREATHING PATTERN - Cardiovascular Exam Cardiovascular Exam: +S1, +S2 - GI/Abdominal Exam GI & Abdominal Exam: Normal Bowel Sounds Assessment and Plan (1) Pathologic fracture Assessment & Plan: for orthopedic surgery Wednesday outpatient radiotherapy Status: Acute (2) DVT (deep venous thrombosis) Assessment & Plan: on therapeutic anticoagulation Status: Acute (3) Anemia Assessment & Plan: chronic disease and recent chemotherapy Status: Acute (4) Breast cancer Assessment & Plan: stage IV triple negative outpatient chemotherapy Status: Acute
[2017-10-22] MEDS ORDERED: Iodixanol 320 mg/ml 150 ml Bottle IV ONE (16:14)
--- NOTE | 2017-10-22 20:18 | CP.PCM.PN ---
Subjective - Date & Time of Evaluation Date of Evaluation: 10/22/17 Time of Evaluation: 07:00 - Subjective Subjective: clinically same Objective - Vital Signs/Intake and Output Vital Signs (last 24 hours): Temp Pulse Resp BP Pulse Ox 97.9 F 93 H 20 109/72 98 10/22/17 16:11 10/22/17 16:11 10/22/17 16:11 10/22/17 16:11 10/22/17 16:11 - Medications Medications: Current Medications Albuterol/Ipratropium (Duoneb 3 Mg/0.5 Mg (3 Ml) Ud) 3 ml INH RQ6 [facility] Last Admin: 10/22/17 13:32 Dose: 3 ml Anastrozole (Arimidex 1 Mg Tab) 1 mg PO DAILY [facility] Last Admin: 10/22/17 09:48 Dose: 1 mg Enoxaparin Sodium (Lovenox) 130 mg SC Q12 [facility] Last Admin: 10/22/17 09:42 Dose: 130 mg Gabapentin (Neurontin) 400 mg PO TID [facility] Last Admin: 10/22/17 17:38 Dose: 400 mg Hydrochlorothiazide (Hydrodiuril) 25 mg PO DAILY [facility] Last Admin: 10/22/17 09:42 Dose: 25 mg Lisinopril (Zestril) 20 mg PO DAILY [facility] Last Admin: 10/22/17 09:41 Dose: 20 mg Metoclopramide HCl (Reglan) 10 mg PO TID PRN PRN Reason: Nausea/Vomiting Last Admin: 10/19/17 11:10 Dose: 10 mg Mometasone Furoate (Asmanex Twisthaler 220 Mcg) 220 puff IH RQD [facility] Last Admin: 10/22/17 07:21 Dose: 1 puff Pantoprazole Sodium (Protonix Ec Tab) 40 mg PO DAILY [facility] Last Admin: 10/22/17 09:42 Dose: 40 mg Potassium Chloride (K-Dur 20 Meq Er Tab) 40 meq PO DAILY [facility] Last Admin: 10/22/17 09:41 Dose: 40 meq Tramadol HCl (Ultram) 50 mg PO Q6H PRN PRN Reason: Pain, severe (8-10) Last Admin: 10/22/17 00:59 Dose: 50 mg - Labs Labs: 10/20/17 07:45 10/17/17 07:34 PT 11.9 SECONDS (9.7-12.2) 10/15/17 12:46 INR 1.1 10/15/17 12:46 APTT 30 SECONDS (21-34) 10/15/17 12:46 - Constitutional Appears: Well - Head Exam Head Exam: ATRAUMATIC, NORMAL INSPECTION, NORMOCEPHALIC - Eye Exam Eye Exam: EOMI, Normal appearance, PERRL Pupil Exam: NORMAL ACCOMODATION, PERRL - ENT Exam ENT Exam: Mucous Membranes Moist, Normal Exam - Neck Exam Neck Exam: Full ROM, Normal Inspection. absent: Lymphadenopathy - Respiratory Exam Respiratory Exam: Decreased Breath Sounds - Cardiovascular Exam Cardiovascular Exam: REGULAR RHYTHM, +S1, +S2 - GI/Abdominal Exam GI & Abdominal Exam: Soft, Diminished Bowel Sounds - Rectal Exam Rectal Exam: Deferred
[2017-10-23] MEDS: Mometasone 220 mcg/puff-14 puff Inh IH SCH (08:13)
[2017-10-23] MEDS: Pantoprazole 40 mg EC Tab PO SCH (09:18)
[2017-10-23] MEDS: Enoxaparin 150 mg Syringe SC SCH ×2 (09:19→21:09)
[2017-10-23] MEDS: Potassium Chloride 20 mEq ER Tab PO SCH (09:22)
--- NOTE | 2017-10-23 13:34 | CP.PCM.PN ---
Subjective - Date & Time of Evaluation Date of Evaluation: 10/23/17 Time of Evaluation: 07:00 - Subjective Subjective: clinically same Objective - Vital Signs/Intake and Output Vital Signs (last 24 hours): Temp Pulse Resp BP Pulse Ox 98.5 F 90 20 100/60 95 10/23/17 08:27 10/23/17 08:27 10/23/17 08:27 10/23/17 08:27 10/23/17 08:27 Intake and Output: 10/23/17 10/23/17 06:59 18:59 Intake Total 340 450 Output Total 1400 Balance -1060 450 - Medications Medications: Current Medications Anastrozole (Arimidex 1 Mg Tab) 1 mg PO DAILY [facility] Last Admin: 10/23/17 09:21 Dose: 1 mg Enoxaparin Sodium (Lovenox) 130 mg SC Q12 [facility] Last Admin: 10/23/17 09:19 Dose: 130 mg Gabapentin (Neurontin) 400 mg PO TID [facility] Last Admin: 10/23/17 09:18 Dose: 400 mg Hydrochlorothiazide (Hydrodiuril) 25 mg PO DAILY [facility] Last Admin: 10/23/17 09:18 Dose: 25 mg Lisinopril (Zestril) 20 mg PO DAILY [facility] Last Admin: 10/23/17 09:18 Dose: 20 mg Metoclopramide HCl (Reglan) 10 mg PO TID PRN PRN Reason: Nausea/Vomiting Last Admin: 10/19/17 11:10 Dose: 10 mg Mometasone Furoate (Asmanex Twisthaler 220 Mcg) 220 puff IH RQD [facility] Last Admin: 10/23/17 08:13 Dose: 1 puff Pantoprazole Sodium (Protonix Ec Tab) 40 mg PO DAILY [facility] Last Admin: 10/23/17 09:18 Dose: 40 mg Potassium Chloride (K-Dur 20 Meq Er Tab) 40 meq PO DAILY [facility] Last Admin: 10/23/17 09:22 Dose: Not Given Tramadol HCl (Ultram) 50 mg PO Q6H PRN PRN Reason: Pain, severe (8-10) Last Admin: 10/22/17 00:59 Dose: 50 mg - Labs Labs: 10/20/17 07:45 10/17/17 07:34 PT 11.9 SECONDS (9.7-12.2) 10/15/17 12:46 INR 1.1 10/15/17 12:46 APTT 30 SECONDS (21-34) 10/15/17 12:46 - Constitutional Appears: Well - Head Exam Head Exam: ATRAUMATIC, NORMAL INSPECTION, NORMOCEPHALIC - Eye Exam Eye Exam: EOMI, Normal appearance, PERRL Pupil Exam: NORMAL ACCOMODATION, PERRL - ENT Exam ENT Exam: Mucous Membranes Moist, Normal Exam - Neck Exam Neck Exam: Full ROM, Normal Inspection. absent: Lymphadenopathy - Respiratory Exam Respiratory Exam: Decreased Breath Sounds - Cardiovascular Exam Cardiovascular Exam: REGULAR RHYTHM, +S1, +S2 - GI/Abdominal Exam GI & Abdominal Exam: Soft, Diminished Bowel Sounds - Rectal Exam Rectal Exam: Deferred
--- NOTE | 2017-10-23 19:23 | CP.PCM.PN ---
Subjective - Date & Time of Evaluation Date of Evaluation: 10/23/17 Time of Evaluation: 17:10 - Subjective Subjective: No complaints, comfortable Objective - Vital Signs/Intake and Output Vital Signs (last 24 hours): Temp Pulse Resp BP Pulse Ox 98 F 90 20 100/61 98 10/23/17 16:00 10/23/17 16:00 10/23/17 16:00 10/23/17 16:00 10/23/17 16:00 Intake and Output: 10/23/17 10/24/17 18:59 06:59 Intake Total 450 Output Total 800 Balance -350 - Medications Medications: Current Medications Anastrozole (Arimidex 1 Mg Tab) 1 mg PO DAILY [facility] Last Admin: 10/23/17 09:21 Dose: 1 mg Enoxaparin Sodium (Lovenox) 130 mg SC Q12 [facility] Last Admin: 10/23/17 09:19 Dose: 130 mg Gabapentin (Neurontin) 400 mg PO TID [facility] Last Admin: 10/23/17 17:16 Dose: 400 mg Hydrochlorothiazide (Hydrodiuril) 25 mg PO DAILY [facility] Last Admin: 10/23/17 09:18 Dose: 25 mg Lisinopril (Zestril) 20 mg PO DAILY [facility] Last Admin: 10/23/17 09:18 Dose: 20 mg Magnesium Hydroxide (Milk Of Magnesia) 30 ml PO ONCE ONE Stop: 10/23/17 21:01 Metoclopramide HCl (Reglan) 10 mg PO TID PRN PRN Reason: Nausea/Vomiting Last Admin: 10/19/17 11:10 Dose: 10 mg Mometasone Furoate (Asmanex Twisthaler 220 Mcg) 220 puff IH RQD [facility] Last Admin: 10/23/17 08:13 Dose: 1 puff Pantoprazole Sodium (Protonix Ec Tab) 40 mg PO DAILY [facility] Last Admin: 10/23/17 09:18 Dose: 40 mg Potassium Chloride (K-Dur 20 Meq Er Tab) 40 meq PO DAILY [facility] Last Admin: 10/23/17 09:22 Dose: Not Given Tramadol HCl (Ultram) 50 mg PO Q6H PRN PRN Reason: Pain, severe (8-10) Last Admin: 10/22/17 00:59 Dose: 50 mg - Labs Labs: 10/20/17 07:45 10/17/17 07:34 PT 11.9 SECONDS (9.7-12.2) 10/15/17 12:46 INR 1.1 10/15/17 12:46 APTT 30 SECONDS (21-34) 10/15/17 12:46 - Head Exam Head Exam: ATRAUMATIC - Eye Exam Eye Exam: Normal appearance - ENT Exam ENT Exam: Mucous Membranes Dry - Respiratory Exam Respiratory Exam: NORMAL BREATHING PATTERN - Cardiovascular Exam Cardiovascular Exam: +S1, +S2 - GI/Abdominal Exam GI & Abdominal Exam: Normal Bowel Sounds Assessment and Plan (1) Pathologic fracture Assessment & Plan: for orthopedic surgery outpatient radiotherapy Status: Acute (2) DVT (deep venous thrombosis) Assessment & Plan: on therapeutic lovenox Status: Acute (3) Anemia Assessment & Plan: chronic disease and recent chemotherapy Status: Acute (4) Breast cancer Assessment & Plan: stage IV triple negative outpatient treatment Status: Acute
[2017-10-23] MEDS ORDERED: Magnesium Hydroxide Susp 30 ml UD PO ONE (21:00)
--- NOTE | 2017-10-24 07:41 | CP.PCM.PCO ---
Physician Communication Note - Physician Communication Note Physician Communication Note: Plan for IVC filter placement in AM. NPO p MN. Labs in AM.
[2017-10-24] MEDS: Mometasone 220 mcg/puff-14 puff Inh IH SCH (08:45)
[2017-10-24] MEDS: Potassium Chloride 20 mEq ER Tab PO SCH (09:00)
[2017-10-24] MEDS: Pantoprazole 40 mg EC Tab PO SCH (09:22)
[2017-10-24] MEDS: Enoxaparin 150 mg Syringe SC SCH ×2 (09:22→21:21)
--- NOTE | 2017-10-24 17:24 | CP.PCM.PN ---
Subjective - Date & Time of Evaluation Date of Evaluation: 10/24/17 Time of Evaluation: 07:00 - Subjective Subjective: clinically same Objective - Vital Signs/Intake and Output Vital Signs (last 24 hours): Temp Pulse Resp BP Pulse Ox 98.1 F 96 H 20 115/75 100 10/24/17 16:00 10/24/17 16:00 10/24/17 16:00 10/24/17 16:00 10/24/17 16:00 Intake and Output: 10/24/17 10/24/17 06:59 18:59 Intake Total 300 Output Total 200 700 Balance 100 -700 - Medications Medications: Current Medications Anastrozole (Arimidex 1 Mg Tab) 1 mg PO DAILY [facility] Last Admin: 10/24/17 09:23 Dose: 1 mg Enoxaparin Sodium (Lovenox) 130 mg SC Q12 [facility] Last Admin: 10/24/17 09:22 Dose: 130 mg Gabapentin (Neurontin) 400 mg PO TID [facility] Last Admin: 10/24/17 13:25 Dose: 400 mg Hydrochlorothiazide (Hydrodiuril) 25 mg PO DAILY [facility] Last Admin: 10/24/17 09:00 Dose: Not Given Lisinopril (Zestril) 20 mg PO DAILY [facility] Last Admin: 10/24/17 09:00 Dose: Not Given Metoclopramide HCl (Reglan) 10 mg PO TID PRN PRN Reason: Nausea/Vomiting Last Admin: 10/19/17 11:10 Dose: 10 mg Mometasone Furoate (Asmanex Twisthaler 220 Mcg) 220 puff IH RQD [facility] Last Admin: 10/24/17 08:45 Dose: 1 puff Pantoprazole Sodium (Protonix Ec Tab) 40 mg PO DAILY [facility] Last Admin: 10/24/17 09:22 Dose: 40 mg Potassium Chloride (K-Dur 20 Meq Er Tab) 40 meq PO DAILY [facility] Last Admin: 10/24/17 09:00 Dose: Not Given Tramadol HCl (Ultram) 50 mg PO Q6H PRN PRN Reason: Pain, severe (8-10) Last Admin: 10/22/17 00:59 Dose: 50 mg - Labs Labs: 10/20/17 07:45 10/17/17 07:34 PT 11.9 SECONDS (9.7-12.2) 10/15/17 12:46 INR 1.1 10/15/17 12:46 APTT 30 SECONDS (21-34) 10/15/17 12:46 - Constitutional Appears: Well - Head Exam Head Exam: ATRAUMATIC, NORMAL INSPECTION, NORMOCEPHALIC - Eye Exam Eye Exam: EOMI, Normal appearance, PERRL Pupil Exam: NORMAL ACCOMODATION, PERRL - ENT Exam ENT Exam: Mucous Membranes Moist, Normal Exam - Neck Exam Neck Exam: Full ROM, Normal Inspection. absent: Lymphadenopathy - Respiratory Exam Respiratory Exam: Decreased Breath Sounds - Cardiovascular Exam Cardiovascular Exam: REGULAR RHYTHM, +S1, +S2 - GI/Abdominal Exam GI & Abdominal Exam: Soft, Diminished Bowel Sounds - Rectal Exam Rectal Exam: Deferred
[2017-10-24] MEDS: Lactated Ringer's 1,000 ML IV SCH (23:30)
[2017-10-25 04:39] LABS: HEMOGLOBIN 10.8 g/dL (11.0-16.0); MEAN CELL VOLUME 77.7 fL (81.0-99.0); MEAN CORPUSCULAR HEMOGLOBIN 24.8 pg (27.0-31.0); MEAN CORPUSCULAR HGB CONC 31.9 g/dL (33.0-37.0); MEAN PLATELET VOLUME 7.8 fL (7.2-11.7); RBC 4.36 Mil/uL (3.80-5.20); RED CELL DISTRIBUTION WIDTH 18.5 % (11.5-14.5)
[2017-10-25 04:51] LABS: INR 1.1; PROTHROMBIN TIME 12.4 SECONDS (9.7-12.2)
[2017-10-25 05:17] LABS: ALB/GLOB RATIO 1.5 (1.0-2.1); ALBUMIN 4.1 g/dL (3.5-5.0); ALT/SGPT 49 U/L (9-52); AST/SGOT 40 U/L (14-36); BLOOD UREA NITROGEN 15 mg/dL (7-17); CALCIUM 8.9 mg/dl (8.6-10.4); GFR AFRICAN-AMERICAN > 60; GFR NON-AFRICAN AMERICAN > 60
[2017-10-25] MEDS ORDERED: ceFAZolin IV 2 gm in Dextrose 2 GM/50 ML BAG IVPB ONE (07:39)
[2017-10-25] MEDS ORDERED: Iodixanol 320 MG/ML 200 ML BOTTLE IV ONE (07:39)
[2017-10-25] MEDS ORDERED: HEPARIN-NS 5,000 UNITS/500 ML 5,000 UNIT/500 ML BAG IV ONE (07:39)
[2017-10-25] MEDS ORDERED: Propofol 10 mg/ml Inj (20 ML) ONE (07:40)
[2017-10-25] MEDS ORDERED: Midazolam 2 MG/2 ML VIAL ONE (07:40)
[2017-10-25] MEDS: Lactated Ringer's 1,000 ML IV SCH ×3 (07:53→22:22)
[2017-10-25] MEDS: Mometasone 220 mcg/puff-14 puff Inh IH SCH (07:54)
[2017-10-25] MEDS ORDERED: HYDROmorphone 0.5 mg/0.5 ml ISec IVP PRN (08:45)
--- NOTE | 2017-10-25 08:48 | PCM.SURG1 ---
Surgeon's Initial Post Op Note - Surgeon's Notes Surgeon: evin Boy'S Adviser: 0 Type of Anesthesia: IV Sedation Anesthesia Administered By: lindsay Pre-Operative Diagnosis: dvt right Operative Findings: elite removable filter to ivc Post-Operative Diagnosis: same Operation Performed: ivcf -option elite via right femoral vein Specimen/Specimens Removed: 0 Estimated Blood Loss: EBL {In ML}: 0 Blood Products Given: N/A Drains Used: No Drains Post-Op Condition: Good Date of Surgery/Procedure: 10/25/17 Time of Surgery/Procedure: 08:48
[2017-10-25 09:24] VITALS: RESP 20
--- NOTE | 2017-10-25 09:34 | CT ---
Date of service: 10/22/2017 PROCEDURE: CT Angiography Abdomen, Pelvis and Lower Extremity with Contrast HISTORY: evaluate PAD COMPARISON: None. TECHNIQUE: Technique: CT angiography of the abdomen, pelvis and bilateral lower extremities performed in the arterial phase of enhancement. Coronal and sagittal reformats, and well as rotating MIP images of the vessels generated at the workstation. Intravenous contrast dose: 150 milliliters Visipaque 320 Radiation dose: Total exam DLP = 4369.57 MGy-cm. This CT exam was performed using one or more of the following dose reduction techniques: Automated exposure control, adjustment of the mA and/or kV according to patient size, and/or use of iterative reconstruction technique. FINDINGS: CT ANGIOGRAPHY: ABDOMINAL AORTA:: The abdominal aorta is unremarkable. MAJOR AORTIC BRANCHES: Celiac [place]: Unremarkable. Superior mesenteric artery: Unremarkable. Inferior mesenteric artery: Unremarkable. Renal arteries: Unremarkable. PELVIC ARTERIES: Right Common Iliac: Unremarkable. Right External Iliac: Unremarkable. Right Internal Iliac: Unremarkable. Left Common Iliac: Unremarkable. Left External Iliac: Unremarkable. Left Internal Iliac: Unremarkable. RIGHT LOWER EXTREMITY ARTERIES: Right Common Femoral: Unremarkable. Right Superficial Femoral: Unremarkable. Right Profunda Femoris: Unremarkable. Right Popliteal:Unremarkable. Right Anterior Tibial: Unremarkable. Right Tibioperoneal Trunk: Unremarkable. Right Posterior Tibial: Unremarkable. Right Peroneal: Unremarkable. Right dorsalis pedis : Unremarkable. LEFT LOWER EXTREMITY ARTERIES: Left Common Femoral: Unremarkable. Left Superficial Femoral: Unremarkable. Left Profunda Femoris: Unremarkable. Left Popliteal: Unremarkable. Left Anterior Tibial: Unremarkable. Left Tibioperoneal Trunk: Unremarkable. Left Posterior Tibial: Unremarkable. Left Peronea: Unremarkable. Left Dorsalis pedis: Unremarkable. NON-ANGIOGRAPHIC ASPECT OF THE EXAM: LOWER THORAX: Unremarkable. 2.2 centimeter nodule is present within the right lower lobe seen on the 1st axial image. Of note, the patient had the CT scan 05/22/2017 that showed multiple masses right chest and mediastinal adenopathy. LIVER: Unremarkable. No gross lesion or ductal dilatation. GALLBLADDER AND BILE DUCTS: Unremarkable. PANCREAS: Unremarkable. No gross lesion or ductal dilatation. SPLEEN: Unremarkable. ADRENALS: Unremarkable. No mass. KIDNEYS AND URETERS: Unremarkable. No hydronephrosis. No solid mass. STOMACH AND BOWEL: Limited evaluation of PO contrast. No obstruction. No gross mural thickening. APPENDIX: Normal appendix. PERITONEUM: Unremarkable. No free fluid. No free air. LYMPH NODES: Unremarkable. No enlarged lymph nodes. BLADDER: Unremarkable. REPRODUCTIVE: Unremarkable. BONES: No acute fracture. OTHER FINDINGS: None. IMPRESSION: NONVASCULAR FINDINGS: 2.2 centimeter nodule seen on the 1st axial image in the right lower lobe. Pt has known malignancy and lung masses. CT ANGIOGRAM ABDOMEN/PELVIS: Essentially unremarkable CT angiogram without evidence of atherosclerotic disease. RIGHT LOWER EXTREMITY CT ANGIOGRAM: Unremarkable CT angiogram. No evidence of peripheral show disease. LEFT LOWER EXTREMITY CT ANGIOGRAM: Unremarkable CT angiogram. No evidence of peripheral show disease.
[2017-10-25] MEDS: Pantoprazole 40 mg EC Tab PO SCH (10:34)
[2017-10-25] MEDS: Potassium Chloride 20 mEq ER Tab PO SCH (10:45)
[2017-10-25] MEDS: Enoxaparin 150 mg Syringe SC SCH (10:46)
--- NOTE | 2017-10-25 13:47 | CP.PCM.PN ---
Subjective - Date & Time of Evaluation Date of Evaluation: 10/25/17 Time of Evaluation: 13:46 - Subjective Subjective: Patient states pain is controlled. Tolerated procedure this am well. Objective - Vital Signs/Intake and Output Vital Signs (last 24 hours): Temp Pulse Resp BP Pulse Ox 98.1 F 82 20 99/67 L 97 10/25/17 09:50 10/25/17 09:50 10/25/17 09:50 10/25/17 09:50 10/25/17 09:50 Intake and Output: 10/25/17 10/25/17 06:59 18:59 Intake Total 1125 700 Output Total 1200 Balance -75 700 - Medications Medications: Current Medications Anastrozole (Arimidex 1 Mg Tab) 1 mg PO DAILY [facility] Last Admin: 10/25/17 10:36 Dose: 1 mg Enoxaparin Sodium (Lovenox) 130 mg SC Q12 [facility] Last Admin: 10/25/17 10:46 Dose: 130 mg Gabapentin (Neurontin) 400 mg PO TID [facility] Last Admin: 10/25/17 10:46 Dose: 400 mg Hydrochlorothiazide (Hydrodiuril) 25 mg PO DAILY [facility] Last Admin: 10/25/17 10:34 Dose: Not Given Lactated Ringer's (Lactated Ringer's) 1,000 mls @ 125 mls/hr IV .Q8H [facility] Last Admin: 10/25/17 07:53 Dose: Not Given Lisinopril (Zestril) 20 mg PO DAILY [facility] Last Admin: 10/25/17 10:34 Dose: Not Given Metoclopramide HCl (Reglan) 10 mg PO TID PRN PRN Reason: Nausea/Vomiting Last Admin: 10/19/17 11:10 Dose: 10 mg Mometasone Furoate (Asmanex Twisthaler 220 Mcg) 1 puff IH RQD [facility] Pantoprazole Sodium (Protonix Ec Tab) 40 mg PO DAILY [facility] Last Admin: 10/25/17 10:34 Dose: 40 mg Potassium Chloride (K-Dur 20 Meq Er Tab) 40 meq PO DAILY [facility] Last Admin: 10/25/17 10:45 Dose: 40 meq Tramadol HCl (Ultram) 50 mg PO Q6H PRN PRN Reason: Pain, severe (8-10) Last Admin: 10/22/17 00:59 Dose: 50 mg - Labs Labs: 07/23/18 04:36 10/25/17 04:36 PT 12.4 SECONDS (9.7-12.2) H 10/25/17 04:36 INR 1.1 10/25/17 04:36 APTT 45 SECONDS (21-34) H 10/25/17 04:36 - Extremities Exam Additional comments: Left leg: +ROM ankle/toes, sensation intact, +DP/PT pulses, calves soft NT neg homans Assessment and Plan (1) Pathological fracture, left tibia, initial encounter for fracture Assessment & Plan: sp IVCF plan for OR Wed for proximal tibial replacement Status: Acute (2) Breast cancer metastasized to bone Status: Acute (3) DVT (deep venous thrombosis) Status: Acute
--- NOTE | 2017-10-25 18:54 | CP.PCM.PN ---
Subjective - Date & Time of Evaluation Date of Evaluation: 10/25/17 Time of Evaluation: 07:00 - Subjective Subjective: clinically same Objective - Vital Signs/Intake and Output Vital Signs (last 24 hours): Temp Pulse Resp BP Pulse Ox 98.1 F 82 20 99/67 L 97 10/25/17 09:50 10/25/17 09:50 10/25/17 09:50 10/25/17 09:50 10/25/17 09:50 Intake and Output: 10/25/17 10/25/17 06:59 18:59 Intake Total 1125 1805 Output Total 1200 800 Balance -75 1005 - Medications Medications: Current Medications Anastrozole (Arimidex 1 Mg Tab) 1 mg PO DAILY [facility] Last Admin: 10/25/17 10:36 Dose: 1 mg Enoxaparin Sodium (Lovenox) 130 mg SC Q12 [facility] Last Admin: 10/25/17 10:46 Dose: 130 mg Gabapentin (Neurontin) 400 mg PO TID [facility] Last Admin: 10/25/17 18:23 Dose: 400 mg Hydrochlorothiazide (Hydrodiuril) 25 mg PO DAILY [facility] Last Admin: 10/25/17 10:34 Dose: Not Given Lactated Ringer's (Lactated Ringer's) 1,000 mls @ 125 mls/hr IV .Q8H [facility] Last Admin: 10/25/17 14:22 Dose: 125 mls/hr Lisinopril (Zestril) 20 mg PO DAILY [facility] Last Admin: 10/25/17 10:34 Dose: Not Given Metoclopramide HCl (Reglan) 10 mg PO TID PRN PRN Reason: Nausea/Vomiting Last Admin: 10/19/17 11:10 Dose: 10 mg Mometasone Furoate (Asmanex Twisthaler 220 Mcg) 1 puff IH RQD [facility] Pantoprazole Sodium (Protonix Ec Tab) 40 mg PO DAILY [facility] Last Admin: 10/25/17 10:34 Dose: 40 mg Potassium Chloride (K-Dur 20 Meq Er Tab) 40 meq PO DAILY [facility] Last Admin: 10/25/17 10:45 Dose: 40 meq Tramadol HCl (Ultram) 50 mg PO Q6H PRN PRN Reason: Pain, severe (8-10) Last Admin: 10/22/17 00:59 Dose: 50 mg - Labs Labs: 10/25/17 04:36 10/25/17 04:36 PT 12.4 SECONDS (9.7-12.2) H 10/25/17 04:36 INR 1.1 10/25/17 04:36 APTT 45 SECONDS (21-34) H 10/25/17 04:36 - Constitutional Appears: Well - Head Exam Head Exam: ATRAUMATIC, NORMAL INSPECTION, NORMOCEPHALIC - Eye Exam Eye Exam: EOMI, Normal appearance, PERRL Pupil Exam: NORMAL ACCOMODATION, PERRL - ENT Exam ENT Exam: Mucous Membranes Moist, Normal Exam - Neck Exam Neck Exam: Full ROM, Normal Inspection. absent: Lymphadenopathy - Respiratory Exam Respiratory Exam: Decreased Breath Sounds - Cardiovascular Exam Cardiovascular Exam: REGULAR RHYTHM, +S1, +S2 - GI/Abdominal Exam GI & Abdominal Exam: Soft, Diminished Bowel Sounds - Rectal Exam Rectal Exam: Deferred
--- NOTE | 2017-10-25 20:34 | OP ---
PROCEDURE DATE: 10/25/2017 PREOPERATIVE DIAGNOSIS: Deep vein thrombosis right leg, need for orthopedic surgery involving the left leg. PROCEDURE CARRIED OUT: Placement of option ELITE removal filter via right femoral vein with C-arm fluoroscopy, ultrasound-guided puncture, and venacavogram. SURGEON: Landry Lorenz Jr., M.D. STATION ATTENDANT: None. ANESTHESIOLOGIST: Mr. Díaz. ANESTHESIA: Local with sedation. DESCRIPTION OF PROCEDURE: The patient is a middle aged woman with breast cancer who has problems with her left tibial plateau and orthopedic surgery. The reason found during her stay was that she had a venous thrombosis involving the right femoral vein. OPERATIVE FINDINGS: One filter was employed uneventfully at the level of the renal veins. DESCRIPTION OF PROCEDURE: The patient was given local anesthesia. Using ultrasound guidance and micropuncture technique, the right common femoral vein was punctured. Under fluoroscopic control, the guidewire was advanced centrally. Sheath dilator was passed over this. The venacavogram was taken. It showed location of the confluence of the iliac veins and no location of the vena cavum. Filter was then deployed in an upright position at this location. A subsequent venacavogram was taken confirming the presence and placement of filter. This was in good position with good opposition in an upright position. The procedure was then terminated. Ultrasound images in the groin showed the vein was 18 mm with normal compressibility and no intraluminal thrombosis. His filter can be removed in the future. Landry Lorenz Jr., MD
[2017-10-26] MEDS: Lactated Ringer's 1,000 ML IV SCH ×3 (06:00→22:28)
--- NOTE | 2017-10-26 07:13 | CP.PCM.PN ---
Subjective - Date & Time of Evaluation Date of Evaluation: 10/26/17 Time of Evaluation: 07:10 - Subjective Subjective: Vascular Surgery Progress Note for Dr. Lorenz 57F seen and evaluated at bedside this morning. No acute events overnight. Pt tolerated the procedure. No complaints of pain. Denies f/c, n/v/d, SOB, CP, or bleeding from incision sites. Objective - Vital Signs/Intake and Output Vital Signs (last 24 hours): Temp Pulse Resp BP Pulse Ox 97.9 F 86 20 101/68 99 10/26/17 00:21 10/26/17 00:21 10/26/17 00:21 10/26/17 00:21 10/26/17 00:21 Intake and Output: 10/26/17 10/26/17 06:59 18:59 Intake Total 2660 Output Total 1600 Balance 1060 - Medications Medications: Current Medications Anastrozole (Arimidex 1 Mg Tab) 1 mg PO DAILY [facility] Last Admin: 10/25/17 10:36 Dose: 1 mg Enoxaparin Sodium (Lovenox) 130 mg SC Q12 [facility] Last Admin: 10/25/17 10:46 Dose: 130 mg Gabapentin (Neurontin) 400 mg PO TID [facility] Last Admin: 10/25/17 18:23 Dose: 400 mg Hydrochlorothiazide (Hydrodiuril) 25 mg PO DAILY [facility] Last Admin: 10/25/17 10:34 Dose: Not Given Lactated Ringer's (Lactated Ringer's) 1,000 mls @ 125 mls/hr IV .Q8H [facility] Last Admin: 10/26/17 06:00 Dose: 125 mls/hr Lisinopril (Zestril) 20 mg PO DAILY [facility] Last Admin: 10/25/17 10:34 Dose: Not Given Metoclopramide HCl (Reglan) 10 mg PO TID PRN PRN Reason: Nausea/Vomiting Last Admin: 10/19/17 11:10 Dose: 10 mg Mometasone Furoate (Asmanex Twisthaler 220 Mcg) 1 puff IH RQD [facility] Pantoprazole Sodium (Protonix Ec Tab) 40 mg PO DAILY [facility] Last Admin: 10/25/17 10:34 Dose: 40 mg Potassium Chloride (K-Dur 20 Meq Er Tab) 40 meq PO DAILY [facility] Last Admin: 07/23/18 10:45 Dose: 40 meq Tramadol HCl (Ultram) 50 mg PO Q6H PRN PRN Reason: Pain, severe (8-10) Last Admin: 10/22/17 00:59 Dose: 50 mg - Labs Labs: 10/25/17 04:36 10/25/17 04:36 PT 12.4 SECONDS (9.7-12.2) H 10/25/17 04:36 INR 1.1 10/25/17 04:36 APTT 45 SECONDS (21-34) H 10/25/17 04:36 - Constitutional Appears: Well, Non-toxic, No Acute Distress - Head Exam Head Exam: ATRAUMATIC, NORMAL INSPECTION, NORMOCEPHALIC - Respiratory Exam Respiratory Exam: Clear to Ausculation Bilateral, NORMAL BREATHING PATTERN - Cardiovascular Exam Cardiovascular Exam: REGULAR RHYTHM, +S1, +S2. absent: Murmur - GI/Abdominal Exam GI & Abdominal Exam: Soft, Normal Bowel Sounds. absent: Tenderness - Extremities Exam Additional comments: no bleeding or drainage from incision site dressings c/d/i - Neurological Exam Neurological Exam: Alert, Awake, Oriented x3 - Psychiatric Exam Psychiatric exam: Normal Affect, Normal Mood - Skin Skin Exam: Dry, Intact, Normal Color, Warm Assessment and Plan - Assessment and Plan (Free Text) Assessment: 57F s/p IVC filter placement Plan: patient can proceed with scheduled proximal tibial replacement per Dr. Valdes no further surgical intervention at this time please reconsult as needed Mando Dockery PGY1
[2017-10-26] MEDS: Mometasone 220 mcg/puff-14 puff Inh IH SCH (07:32)
[2017-10-26] MEDS: Pantoprazole 40 mg EC Tab PO SCH (11:10)
[2017-10-26] MEDS: Potassium Chloride 20 mEq ER Tab PO SCH (11:10)
--- NOTE | 2017-10-26 17:43 | CP.PCM.PN ---
Subjective - Date & Time of Evaluation Date of Evaluation: 10/26/17 Time of Evaluation: 07:00 - Subjective Subjective: clinically same Objective - Vital Signs/Intake and Output Vital Signs (last 24 hours): Temp Pulse Resp BP Pulse Ox 97.8 F 85 20 115/77 97 10/26/17 15:50 10/26/17 15:50 10/26/17 15:50 10/26/17 15:50 10/26/17 15:50 Intake and Output: 10/26/17 10/26/17 06:59 18:59 Intake Total 2660 1480 Output Total 1600 1200 Balance 1060 280 - Medications Medications: Current Medications Anastrozole (Arimidex 1 Mg Tab) 1 mg PO DAILY [facility] Last Admin: 10/26/17 11:11 Dose: 1 mg Enoxaparin Sodium (Lovenox) 130 mg SC Q12 [facility] Last Admin: 10/25/17 10:46 Dose: 130 mg Gabapentin (Neurontin) 400 mg PO TID [facility] Last Admin: 10/26/17 17:02 Dose: 400 mg Hydrochlorothiazide (Hydrodiuril) 25 mg PO DAILY [facility] Last Admin: 10/26/17 11:09 Dose: Not Given Lactated Ringer's (Lactated Ringer's) 1,000 mls @ 125 mls/hr IV .Q8H [facility] Last Admin: 10/26/17 14:19 Dose: 125 mls/hr Lisinopril (Zestril) 20 mg PO DAILY [facility] Last Admin: 10/26/17 11:10 Dose: Not Given Metoclopramide HCl (Reglan) 10 mg PO TID PRN PRN Reason: Nausea/Vomiting Last Admin: 10/19/17 11:10 Dose: 10 mg Mometasone Furoate (Asmanex Twisthaler 220 Mcg) 1 puff IH RQD [facility] Last Admin: 10/26/17 07:32 Dose: 1 puff Pantoprazole Sodium (Protonix Ec Tab) 40 mg PO DAILY [facility] Last Admin: 10/26/17 11:10 Dose: 40 mg Potassium Chloride (K-Dur 20 Meq Er Tab) 40 meq PO DAILY [facility] Last Admin: 10/26/17 11:10 Dose: 40 meq Tramadol HCl (Ultram) 50 mg PO Q6H PRN PRN Reason: Pain, severe (8-10) Last Admin: 10/26/17 14:19 Dose: 50 mg - Labs Labs: 10/25/17 04:36 10/25/17 04:36 PT 12.4 SECONDS (9.7-12.2) H 10/25/17 04:36 INR 1.1 10/25/17 04:36 APTT 45 SECONDS (21-34) H 10/25/17 04:36 - Constitutional Appears: Well - Head Exam Head Exam: ATRAUMATIC, NORMAL INSPECTION, NORMOCEPHALIC - Eye Exam Eye Exam: EOMI, Normal appearance, PERRL Pupil Exam: NORMAL ACCOMODATION, PERRL - ENT Exam ENT Exam: Mucous Membranes Moist, Normal Exam - Neck Exam Neck Exam: Full ROM, Normal Inspection. absent: Lymphadenopathy - Respiratory Exam Respiratory Exam: Decreased Breath Sounds - Cardiovascular Exam Cardiovascular Exam: REGULAR RHYTHM, +S1, +S2 - GI/Abdominal Exam GI & Abdominal Exam: Soft, Diminished Bowel Sounds - Rectal Exam Rectal Exam: Deferred
--- NOTE | 2017-10-26 18:25 | CP.PCM.PN ---
Subjective - Date & Time of Evaluation Date of Evaluation: 10/25/17 Time of Evaluation: 19:10 - Subjective Subjective: Pain well controlled. Objective - Vital Signs/Intake and Output Vital Signs (last 24 hours): Temp Pulse Resp BP Pulse Ox 97.8 F 85 20 115/77 97 10/26/17 15:50 10/26/17 15:50 10/26/17 15:50 10/26/17 15:50 10/26/17 15:50 Intake and Output: 10/26/17 10/26/17 06:59 18:59 Intake Total 2660 1480 Output Total 1600 1200 Balance 1060 280 - Medications Medications: Current Medications Anastrozole (Arimidex 1 Mg Tab) 1 mg PO DAILY [facility] Last Admin: 10/26/17 11:11 Dose: 1 mg Enoxaparin Sodium (Lovenox) 130 mg SC Q12 [facility] Last Admin: 10/25/17 10:46 Dose: 130 mg Gabapentin (Neurontin) 400 mg PO TID [facility] Last Admin: 10/26/17 17:02 Dose: 400 mg Hydrochlorothiazide (Hydrodiuril) 25 mg PO DAILY [facility] Last Admin: 10/26/17 11:09 Dose: Not Given Lactated Ringer's (Lactated Ringer's) 1,000 mls @ 125 mls/hr IV .Q8H [facility] Last Admin: 10/26/17 14:19 Dose: 125 mls/hr Lisinopril (Zestril) 20 mg PO DAILY [facility] Last Admin: 10/26/17 11:10 Dose: Not Given Metoclopramide HCl (Reglan) 10 mg PO TID PRN PRN Reason: Nausea/Vomiting Last Admin: 10/19/17 11:10 Dose: 10 mg Mometasone Furoate (Asmanex Twisthaler 220 Mcg) 1 puff IH RQD [facility] Last Admin: 10/26/17 07:32 Dose: 1 puff Pantoprazole Sodium (Protonix Ec Tab) 40 mg PO DAILY [facility] Last Admin: 10/26/17 11:10 Dose: 40 mg Potassium Chloride (K-Dur 20 Meq Er Tab) 40 meq PO DAILY [facility] Last Admin: 10/26/17 11:10 Dose: 40 meq Tramadol HCl (Ultram) 50 mg PO Q6H PRN PRN Reason: Pain, severe (8-10) Last Admin: 10/26/17 14:19 Dose: 50 mg - Labs Labs: 10/25/17 04:36 10/25/17 04:36 PT 12.4 SECONDS (9.7-12.2) H 10/25/17 04:36 INR 1.1 10/25/17 04:36 APTT 45 SECONDS (21-34) H 10/25/17 04:36 - Head Exam Head Exam: ATRAUMATIC - Eye Exam Eye Exam: Normal appearance - ENT Exam ENT Exam: Mucous Membranes Dry - Respiratory Exam Respiratory Exam: NORMAL BREATHING PATTERN - Cardiovascular Exam Cardiovascular Exam: +S1, +S2 - GI/Abdominal Exam GI & Abdominal Exam: Normal Bowel Sounds - Extremities Exam Extremities Exam: Pedal Edema Assessment and Plan (1) Pathologic fracture Assessment & Plan: for orthopedic surgery Status: Acute (2) DVT (deep venous thrombosis) Assessment & Plan: on therapeutic anticoagulation for IVC filter Status: Acute (3) Anemia Assessment & Plan: chronic disease Status: Acute (4) Breast cancer Assessment & Plan: stage IV triple negative outpatient treatment Status: Acute
--- NOTE | 2017-10-26 18:28 | CP.PCM.PN ---
Subjective - Date & Time of Evaluation Date of Evaluation: 10/26/17 Time of Evaluation: 16:30 - Subjective Subjective: No complaints Objective - Vital Signs/Intake and Output Vital Signs (last 24 hours): Temp Pulse Resp BP Pulse Ox 97.8 F 85 20 115/77 97 10/26/17 15:50 10/26/17 15:50 10/26/17 15:50 10/26/17 15:50 10/26/17 15:50 Intake and Output: 10/26/17 10/26/17 06:59 18:59 Intake Total 2660 1480 Output Total 1600 1200 Balance 1060 280 - Medications Medications: Current Medications Anastrozole (Arimidex 1 Mg Tab) 1 mg PO DAILY [facility] Last Admin: 10/26/17 11:11 Dose: 1 mg Enoxaparin Sodium (Lovenox) 130 mg SC Q12 [facility] Last Admin: 10/25/17 10:46 Dose: 130 mg Gabapentin (Neurontin) 400 mg PO TID [facility] Last Admin: 10/26/17 17:02 Dose: 400 mg Hydrochlorothiazide (Hydrodiuril) 25 mg PO DAILY [facility] Last Admin: 10/26/17 11:09 Dose: Not Given Lactated Ringer's (Lactated Ringer's) 1,000 mls @ 125 mls/hr IV .Q8H [facility] Last Admin: 10/26/17 14:19 Dose: 125 mls/hr Lisinopril (Zestril) 20 mg PO DAILY [facility] Last Admin: 10/26/17 11:10 Dose: Not Given Metoclopramide HCl (Reglan) 10 mg PO TID PRN PRN Reason: Nausea/Vomiting Last Admin: 10/19/17 11:10 Dose: 10 mg Mometasone Furoate (Asmanex Twisthaler 220 Mcg) 1 puff IH RQD [facility] Last Admin: 10/26/17 07:32 Dose: 1 puff Pantoprazole Sodium (Protonix Ec Tab) 40 mg PO DAILY [facility] Last Admin: 10/26/17 11:10 Dose: 40 mg Potassium Chloride (K-Dur 20 Meq Er Tab) 40 meq PO DAILY [facility] Last Admin: 10/26/17 11:10 Dose: 40 meq Tramadol HCl (Ultram) 50 mg PO Q6H PRN PRN Reason: Pain, severe (8-10) Last Admin: 10/26/17 14:19 Dose: 50 mg - Labs Labs: 10/25/17 04:36 10/25/17 04:36 PT 12.4 SECONDS (9.7-12.2) H 10/25/17 04:36 INR 1.1 10/25/17 04:36 APTT 45 SECONDS (21-34) H 10/25/17 04:36 - Head Exam Head Exam: ATRAUMATIC - Eye Exam Eye Exam: Normal appearance - ENT Exam ENT Exam: Mucous Membranes Dry - Respiratory Exam Respiratory Exam: NORMAL BREATHING PATTERN - Cardiovascular Exam Cardiovascular Exam: +S1, +S2 - GI/Abdominal Exam GI & Abdominal Exam: Normal Bowel Sounds Assessment and Plan (1) Pathologic fracture Assessment & Plan: orthopedic surgery as outpatient Status: Acute (2) DVT (deep venous thrombosis) Assessment & Plan: s/p IVC filter therapeutic lovenox Status: Acute (3) Anemia Assessment & Plan: chronic disease Status: Acute (4) Breast cancer Assessment & Plan: stage IV triple negative outpatient treatment Status: Acute
[2017-10-26 18:52] LABS: SQUAMOUS EPITHIAL 1 /hpf (0-5); URINE BILIRUBIN NEGATIVE (NEGATIVE); URINE BLOOD NEGATIVE (NEGATIVE); URINE CLARITY Clear (Clear); URINE COLOR Yellow (YELLOW); URINE GLUCOSE (UA) NORMAL (Normal); URINE LEUKOCYTE ESTERASE NEG Leu/uL (Negative); URINE PROTEIN NEGATIVE (NEGATIVE); URINE UROBILINOGEN NORMAL mg/dL (0.2-1.0)
[2017-10-26 18:55] LABS: URINE BACTERIA RARE (<OCC)
[2017-10-27] MEDS: Lactated Ringer's 1,000 ML IV SCH (06:27)
[2017-10-27 07:21] LABS: HEMOGLOBIN 9.9 g/dL (11.0-16.0); MEAN CELL VOLUME 78.7 fL (81.0-99.0); MEAN CORPUSCULAR HEMOGLOBIN 25.2 pg (27.0-31.0); MEAN PLATELET VOLUME 7.8 fL (7.2-11.7); RBC 3.92 Mil/uL (3.80-5.20); RED CELL DISTRIBUTION WIDTH 18.3 % (11.5-14.5); WHITE BLOOD COUNT 5.5 K/uL (4.8-10.8)
[2017-10-27 07:33] LABS: PROTHROMBIN TIME 11.3 SECONDS (9.7-12.2)
[2017-10-27 07:35] LABS: BLOOD UREA NITROGEN 11 mg/dL (7-17); CALCIUM 8.9 mg/dl (8.6-10.4); GFR AFRICAN-AMERICAN > 60; GFR NON-AFRICAN AMERICAN > 60
[2017-10-27] MEDS: Mometasone 220 mcg/puff-14 puff Inh IH SCH (08:06)
--- NOTE | 2017-10-27 08:36 | CP.PCM.PN ---
Subjective - Date & Time of Evaluation Date of Evaluation: 10/27/17 Time of Evaluation: 08:35 - Subjective Subjective: Surgery cancelled per Dr. Valdes. States patient to be discharged, and can follow up to be scheduled next week for surgery. Patient notified of cancellation of surgery. Patient states she wants to have surgery as soon as possible, that she is still in a lot of pain in her left leg , and she doesn't want to go to rehab and come back for surgery. Objective - Vital Signs/Intake and Output Vital Signs (last 24 hours): Temp Pulse Resp BP Pulse Ox 98.0 F 74 20 126/85 99 10/27/17 07:00 10/27/17 07:00 10/27/17 07:00 10/27/17 07:00 10/27/17 07:00 Intake and Output: 10/27/17 10/27/17 06:59 18:59 Intake Total 2550 Output Total 2200 Balance 350 - Medications Medications: Current Medications Anastrozole (Arimidex 1 Mg Tab) 1 mg PO DAILY [facility] Last Admin: 10/26/17 11:11 Dose: 1 mg Enoxaparin Sodium (Lovenox) 130 mg SC Q12 [facility] Last Admin: 10/25/17 10:46 Dose: 130 mg Gabapentin (Neurontin) 400 mg PO TID [facility] Last Admin: 10/26/17 17:02 Dose: 400 mg Hydrochlorothiazide (Hydrodiuril) 25 mg PO DAILY [facility] Last Admin: 10/26/17 11:09 Dose: Not Given Lactated Ringer's (Lactated Ringer's) 1,000 mls @ 125 mls/hr IV .Q8H [facility] Last Admin: 10/27/17 06:27 Dose: 125 mls/hr Lisinopril (Zestril) 20 mg PO DAILY [facility] Last Admin: 10/26/17 11:10 Dose: Not Given Metoclopramide HCl (Reglan) 10 mg PO TID PRN PRN Reason: Nausea/Vomiting Last Admin: 10/19/17 11:10 Dose: 10 mg Mometasone Furoate (Asmanex Twisthaler 220 Mcg) 1 puff IH RQD [facility] Last Admin: 10/27/17 08:06 Dose: 1 puff Pantoprazole Sodium (Protonix Ec Tab) 40 mg PO DAILY [facility] Last Admin: 10/26/17 11:10 Dose: 40 mg Potassium Chloride (K-Dur 20 Meq Er Tab) 40 meq PO DAILY [facility] Last Admin: 10/26/17 11:10 Dose: 40 meq Tramadol HCl (Ultram) 50 mg PO Q6H PRN PRN Reason: Pain, severe (8-10) Last Admin: 10/26/17 14:19 Dose: 50 mg - Labs Labs: 10/27/17 07:06 10/27/17 07:06 PT 11.3 SECONDS (9.7-12.2) 10/27/17 07:06 INR 1.0 10/27/17 07:06 APTT 30 SECONDS (21-34) D 10/27/17 07:06 - Extremities Exam Additional comments: knee immob adjusted. +ROM ankle/toes, sensation intact +DP/PT pulses calves soft NT neg homans, swelling to leg improving. Assessment and Plan (1) Pathological fracture, left tibia, initial encounter for fracture Assessment & Plan: surgery cancelled per Dr. Valdes, patient to be discharged and to f/u for surgery to be scheduled next week d/w medical team s/p IVCF strict NWB LLE Status: Acute (2) Breast cancer metastasized to bone Status: Acute (3) DVT (deep venous thrombosis) Status: Acute
[2017-10-27] MEDS: Potassium Chloride 20 mEq ER Tab PO SCH ×2 (10:36→10:59)
[2017-10-27] MEDS: Pantoprazole 40 mg EC Tab PO SCH (10:36)
--- NOTE | 2017-10-27 17:41 | CP.PCM.PN ---
Subjective - Date & Time of Evaluation Date of Evaluation: 10/27/17 Time of Evaluation: 07:00 - Subjective Subjective: clinically same Objective - Vital Signs/Intake and Output Vital Signs (last 24 hours): Temp Pulse Resp BP Pulse Ox 98.4 F 83 20 124/76 97 10/27/17 15:30 10/27/17 15:30 10/27/17 15:30 10/27/17 15:30 10/27/17 15:30 Intake and Output: 10/27/17 10/27/17 06:59 18:59 Intake Total 2550 1000 Output Total 2200 800 Balance 350 200 - Medications Medications: Current Medications Anastrozole (Arimidex 1 Mg Tab) 1 mg PO DAILY [facility] Last Admin: 10/27/17 10:50 Dose: 1 mg Enoxaparin Sodium (Lovenox) 130 mg SC Q12 [facility] Last Admin: 10/25/17 10:46 Dose: 130 mg Gabapentin (Neurontin) 400 mg PO TID [facility] Last Admin: 10/27/17 13:57 Dose: 400 mg Hydrochlorothiazide (Hydrodiuril) 25 mg PO DAILY [facility] Last Admin: 10/27/17 10:41 Dose: 25 mg Lisinopril (Zestril) 20 mg PO DAILY [facility] Last Admin: 10/27/17 10:41 Dose: 20 mg Metoclopramide HCl (Reglan) 10 mg PO TID PRN PRN Reason: Nausea/Vomiting Last Admin: 10/19/17 11:10 Dose: 10 mg Mometasone Furoate (Asmanex Twisthaler 220 Mcg) 1 puff IH RQD [facility] Last Admin: 10/27/17 08:06 Dose: 1 puff Pantoprazole Sodium (Protonix Ec Tab) 40 mg PO DAILY [facility] Last Admin: 10/27/17 10:36 Dose: 40 mg Potassium Chloride (K-Dur 20 Meq Er Tab) 40 meq PO DAILY [facility] Last Admin: 10/27/17 10:59 Dose: Not Given Tramadol HCl (Ultram) 50 mg PO Q6H PRN PRN Reason: Pain, severe (8-10) Last Admin: 10/26/17 14:19 Dose: 50 mg - Labs Labs: 10/27/17 07:06 10/27/17 07:06 PT 11.3 SECONDS (9.7-12.2) 10/27/17 07:06 INR 1.0 10/27/17 07:06 APTT 30 SECONDS (21-34) D 10/27/17 07:06 - Constitutional Appears: Well - Head Exam Head Exam: ATRAUMATIC, NORMAL INSPECTION, NORMOCEPHALIC - Eye Exam Eye Exam: EOMI, Normal appearance, PERRL Pupil Exam: NORMAL ACCOMODATION, PERRL - ENT Exam ENT Exam: Mucous Membranes Moist, Normal Exam - Neck Exam Neck Exam: Full ROM, Normal Inspection. absent: Lymphadenopathy - Respiratory Exam Respiratory Exam: Decreased Breath Sounds - Cardiovascular Exam Cardiovascular Exam: REGULAR RHYTHM, +S1, +S2 - GI/Abdominal Exam GI & Abdominal Exam: Soft, Diminished Bowel Sounds - Rectal Exam Rectal Exam: Deferred
--- NOTE | 2017-10-27 18:17 | CP.PCM.PN ---
Subjective - Date & Time of Evaluation Date of Evaluation: 10/27/17 Time of Evaluation: 16:45 - Subjective Subjective: S- pt in discomfort ,but NOT severe pain at time of the encounter. Pt states she is more comfortable in the knee immobilizer encounter accomplished with pt in the presence of her father Objective - Vital Signs/Intake and Output Vital Signs (last 24 hours): Temp Pulse Resp BP Pulse Ox 98.4 F 83 20 124/76 97 10/27/17 15:30 10/27/17 15:30 10/27/17 15:30 10/27/17 15:30 10/27/17 15:30 Intake and Output: 10/27/17 10/27/17 06:59 18:59 Intake Total 2550 1000 Output Total 2200 800 Balance 350 200 - Medications Medications: Current Medications Anastrozole (Arimidex 1 Mg Tab) 1 mg PO DAILY [facility] Last Admin: 10/27/17 10:50 Dose: 1 mg Enoxaparin Sodium (Lovenox) 130 mg SC Q12 [facility] Last Admin: 10/25/17 10:46 Dose: 130 mg Gabapentin (Neurontin) 400 mg PO TID [facility] Last Admin: 10/27/17 13:57 Dose: 400 mg Hydrochlorothiazide (Hydrodiuril) 25 mg PO DAILY [facility] Last Admin: 10/27/17 10:41 Dose: 25 mg Lisinopril (Zestril) 20 mg PO DAILY [facility] Last Admin: 10/27/17 10:41 Dose: 20 mg Metoclopramide HCl (Reglan) 10 mg PO TID PRN PRN Reason: Nausea/Vomiting Last Admin: 10/19/17 11:10 Dose: 10 mg Mometasone Furoate (Asmanex Twisthaler 220 Mcg) 1 puff IH RQD [facility] Last Admin: 10/27/17 08:06 Dose: 1 puff Pantoprazole Sodium (Protonix Ec Tab) 40 mg PO DAILY [facility] Last Admin: 10/27/17 10:36 Dose: 40 mg Potassium Chloride (K-Dur 20 Meq Er Tab) 40 meq PO DAILY [facility] Last Admin: 10/27/17 10:59 Dose: Not Given Tramadol HCl (Ultram) 50 mg PO Q6H PRN PRN Reason: Pain, severe (8-10) Last Admin: 10/26/17 14:19 Dose: 50 mg - Labs Labs: 10/27/17 07:06 10/27/17 07:06 PT 11.3 SECONDS (9.7-12.2) 10/27/17 07:06 INR 1.0 10/27/17 07:06 APTT 30 SECONDS (21-34) D 10/27/17 07:06 - Additional Findings Additional findings: objective: sytemic Heent - wnl/pt with decreased vuisual acuity, wears corrective eyeglasses Breast- pt s/p bilateral mastectomy for Breast Ca Remainder of sytemic exam as per Dr Garcia, Dr Chris Mitchell Musculoskeltal stance/gait- defrred Pts L lower ext immobilized in knee immobilizert N/V intact Assessment and Plan - Assessment and Plan (Free Text) Assessment: A- 55 yo female with metastatic breast ca presents with severe pain in L proximal tibia. pt also with metastasis- to L femoral head/L proximal brachium / R proximal clavicle/ R prox humerus- L proximal tibia lesion painful / pt has large soft tissue component. CTA reviewed, which reveals close proximity of popliteal artery to the soft tissue comonent of the metastatic tumor construct. Pt also has DVT, with vena caval filter introduced for R lower extremity DVT. P- discussed situatioin at length with pt and her father. It is explained that the surgery to the L lower extre,mity is EXDTREMELY HIGH RISK. Further, it is discussed that the surgery for atbilization of the tumor is PALLIATIVE at best and not curative. IT is NOT the goal of the procedure to cure any isolated metsatatic lesion. the Goal of the procedure is purewly PAILLIATIVE, TO RESECT PART OF THE TUMOR, CURETTAGE AND CEMENTATION WITHIN THE cONSTRAINT OF TOTAL KNEE REPLACEMENT/ POSSIBLE pROXIMAL TIBIAL REP[LACEMENT. pT SHOULD ALSO CONSIDER transfer to a Musculoskekeltal tumor center, for example [facility] and dentistry, [place]. Pt considering same. will attempt to accomplish suregyr tomorrow if PA Stock is available, and equipment considerations are met.
--- NOTE | 2017-10-27 21:05 | CP.PCM.PN ---
Subjective - Date & Time of Evaluation Date of Evaluation: 10/27/17 Time of Evaluation: 20:00 - Subjective Subjective: Pain well controlled, events noted. Objective - Vital Signs/Intake and Output Vital Signs (last 24 hours): Temp Pulse Resp BP Pulse Ox 98.4 F 83 20 124/76 97 10/27/17 15:30 10/27/17 15:30 10/27/17 15:30 10/27/17 15:30 10/27/17 15:30 Intake and Output: 10/27/17 10/28/17 18:59 06:59 Intake Total 1000 Output Total 800 Balance 200 - Medications Medications: Current Medications Anastrozole (Arimidex 1 Mg Tab) 1 mg PO DAILY [facility] Last Admin: 10/27/17 10:50 Dose: 1 mg Enoxaparin Sodium (Lovenox) 130 mg SC Q12 [facility] Last Admin: 10/25/17 10:46 Dose: 130 mg Gabapentin (Neurontin) 400 mg PO TID [facility] Last Admin: 10/27/17 17:58 Dose: 400 mg Hydrochlorothiazide (Hydrodiuril) 25 mg PO DAILY [facility] Last Admin: 10/27/17 10:41 Dose: 25 mg Lisinopril (Zestril) 20 mg PO DAILY [facility] Last Admin: 10/27/17 10:41 Dose: 20 mg Metoclopramide HCl (Reglan) 10 mg PO TID PRN PRN Reason: Nausea/Vomiting Last Admin: 10/19/17 11:10 Dose: 10 mg Mometasone Furoate (Asmanex Twisthaler 220 Mcg) 1 puff IH RQD [facility] Last Admin: 10/27/17 08:06 Dose: 1 puff Pantoprazole Sodium (Protonix Ec Tab) 40 mg PO DAILY [facility] Last Admin: 10/27/17 10:36 Dose: 40 mg Potassium Chloride (K-Dur 20 Meq Er Tab) 40 meq PO DAILY [facility] Last Admin: 10/27/17 10:59 Dose: Not Given Tramadol HCl (Ultram) 50 mg PO Q6H PRN PRN Reason: Pain, severe (8-10) Last Admin: 10/26/17 14:19 Dose: 50 mg - Labs Labs: 10/27/17 07:06 10/27/17 07:06 PT 11.3 SECONDS (9.7-12.2) 10/27/17 07:06 INR 1.0 10/27/17 07:06 APTT 30 SECONDS (21-34) D 10/27/17 07:06 - Head Exam Head Exam: ATRAUMATIC - Eye Exam Eye Exam: Normal appearance - ENT Exam ENT Exam: Mucous Membranes Dry - Respiratory Exam Respiratory Exam: NORMAL BREATHING PATTERN - Cardiovascular Exam Cardiovascular Exam: +S1, +S2 - GI/Abdominal Exam GI & Abdominal Exam: Normal Bowel Sounds Assessment and Plan (1) Pathologic fracture Assessment & Plan: orthopedic surgery f/u appreciated palliative orthopedic surgery with consideration for musculoskeletal orthopedic surgery at [facility] Status: Acute (2) DVT (deep venous thrombosis) Assessment & Plan: provoked from malignancy on therapeutic lovenox s/p IVC filter placement Status: Acute (3) Anemia Assessment & Plan: chronic disease Status: Acute (4) Breast cancer Assessment & Plan: stage IV triple negative outpatient chemotherapy Status: Acute
[2017-10-28] MEDS: Mometasone 220 mcg/puff-14 puff Inh IH SCH (07:32)
[2017-10-28] MEDS: Potassium Chloride 20 mEq ER Tab PO SCH (09:54)
[2017-10-28] MEDS: Pantoprazole 40 mg EC Tab PO SCH (09:54)
--- NOTE | 2017-10-28 11:26 | CP.PCM.PN ---
Subjective - Date & Time of Evaluation Date of Evaluation: 10/28/17 Time of Evaluation: 07:30 - Subjective Subjective: Patient states that she still has a lot of pain in her left leg. Discussed at length with patient regarding complexity of fracture, location, multiple metastatic lesions, and that Dr. Valdes recommended transfer of care to [facility] institution with musculoskeletal oncology department. Patient verbalizes understanding, and agrees to transfer to [facility] under care of Dr. Elroy Yee. Spoke with MAYA Naik, who will arrange for transfer on Tuesday 10/31. Objective - Vital Signs/Intake and Output Vital Signs (last 24 hours): Temp Pulse Resp BP Pulse Ox 98.7 F 88 20 118/83 97 10/28/17 08:00 10/28/17 08:00 10/28/17 08:00 10/28/17 08:00 10/28/17 08:00 Intake and Output: 10/28/17 10/28/17 06:59 18:59 Intake Total 500 Output Total 1100 Balance -600 - Medications Medications: Current Medications Anastrozole (Arimidex 1 Mg Tab) 1 mg PO DAILY [facility] Last Admin: 10/28/17 10:01 Dose: 1 mg Enoxaparin Sodium (Lovenox) 130 mg SC Q12 [facility] Last Admin: 10/25/17 10:46 Dose: 130 mg Gabapentin (Neurontin) 400 mg PO TID [facility] Last Admin: 10/28/17 09:54 Dose: 400 mg Hydrochlorothiazide (Hydrodiuril) 25 mg PO DAILY [facility] Last Admin: 10/28/17 09:54 Dose: 25 mg Lisinopril (Zestril) 20 mg PO DAILY [facility] Last Admin: 10/28/17 09:54 Dose: 20 mg Metoclopramide HCl (Reglan) 10 mg PO TID PRN PRN Reason: Nausea/Vomiting Last Admin: 10/19/17 11:10 Dose: 10 mg Mometasone Furoate (Asmanex Twisthaler 220 Mcg) 1 puff IH RQD [facility] Last Admin: 10/28/17 07:32 Dose: 1 puff Pantoprazole Sodium (Protonix Ec Tab) 40 mg PO DAILY [facility] Last Admin: 10/28/17 09:54 Dose: 40 mg Potassium Chloride (K-Dur 20 Meq Er Tab) 40 meq PO DAILY [facility] Last Admin: 10/28/17 09:54 Dose: Not Given Tramadol HCl (Ultram) 50 mg PO Q6H PRN PRN Reason: Pain, severe (8-10) Last Admin: 10/26/17 14:19 Dose: 50 mg - Labs Labs: 10/27/17 07:06 10/27/17 07:06 PT 11.3 SECONDS (9.7-12.2) 10/27/17 07:06 INR 1.0 10/27/17 07:06 APTT 30 SECONDS (21-34) D 10/27/17 07:06 - Extremities Exam Additional comments: LLE: +ROM ankle/toes, sensation intact, Calves soft NT neg homans, knee immobilizer intact, adjusted Assessment and Plan (1) Pathological fracture, left tibia, initial encounter for fracture Assessment & Plan: Patient for transfer of care to [facility] oncologist orthopedic surgeon Dr. Yee at [facility] cont NWB LLE and knee immobilizer s/p IVC filter patient agrees to plan above as per Dr. Valdes Status: Acute (2) Breast cancer metastasized to bone Status: Acute (3) DVT (deep venous thrombosis) Assessment & Plan: R popliteal s/p IVC filter 10/25 Status: Acute
--- NOTE | 2017-10-28 13:40 | CP.PCM.PN ---
Subjective - Date & Time of Evaluation Date of Evaluation: 10/28/17 Time of Evaluation: 13:36 - Subjective Subjective: DISCUSSED D/C PLAN AT LENGTH WITH HARPREET ABAD PA-C. AT THIS TIME THE PLAN FOR FURTHER TREATMENT AND MANAGEMENT OF PT'S FRACTURE WILL BE TO TRANSFER HER TO [facility] UNDER THE CARE OF DR. PINTO. ALL TRANSFER ARRANGEMENTS HAVE BEEN DONE BY [facility]. PT IS IN AGREEMENT WITH THIS PLAN. PT ALSO AWARE THAT [facility] WILL ACCEPT HER ON WEDNESDAY, WITH SURGERY TO TAKE PLACE AT SOME TIME NEXT WEEK. I SPOKE WITH DR. HERNANDES, WHO IS RECOMMENDING TO HOLD CHEMO UNTIL AFTER HER ORTHO SURGERY AND AFTER SHE IS CLEARED BY THE ORTHOPEDIC SURGEON. I HAVE NOTIFIED PT OF THIS AND I HAVE NOTED THIS ON PT'S D/ C PAPERWORK, WHICH WILL BE SENT TO [facility] WITH THE HOSPITAL. SW AND CM AWARE OF TRANSFER. CM WILL ARRANGE FINAL TRANSFER. NO FURTHER ORDERS. Objective - Vital Signs/Intake and Output Vital Signs (last 24 hours): Temp Pulse Resp BP Pulse Ox 98.7 F 88 20 118/83 97 10/28/17 08:00 10/28/17 08:00 10/28/17 08:00 10/28/17 08:00 10/28/17 08:00 Intake and Output: 10/28/17 10/28/17 06:59 18:59 Intake Total 500 Output Total 1100 Balance -600 - Medications Medications: Current Medications Anastrozole (Arimidex 1 Mg Tab) 1 mg PO DAILY [facility] Last Admin: 10/28/17 10:01 Dose: 1 mg Enoxaparin Sodium (Lovenox) 130 mg SC Q12 [facility] Last Admin: 10/25/17 10:46 Dose: 130 mg Gabapentin (Neurontin) 400 mg PO TID [facility] Last Admin: 10/28/17 09:54 Dose: 400 mg Hydrochlorothiazide (Hydrodiuril) 25 mg PO DAILY [facility] Last Admin: 10/28/17 09:54 Dose: 25 mg Lisinopril (Zestril) 20 mg PO DAILY [facility] Last Admin: 10/28/17 09:54 Dose: 20 mg Metoclopramide HCl (Reglan) 10 mg PO TID PRN PRN Reason: Nausea/Vomiting Last Admin: 10/19/17 11:10 Dose: 10 mg Mometasone Furoate (Asmanex Twisthaler 220 Mcg) 1 puff IH RQD [facility] Last Admin: 10/28/17 07:32 Dose: 1 puff Pantoprazole Sodium (Protonix Ec Tab) 40 mg PO DAILY [facility] Last Admin: 10/28/17 09:54 Dose: 40 mg Potassium Chloride (K-Dur 20 Meq Er Tab) 40 meq PO DAILY [facility] Last Admin: 10/28/17 09:54 Dose: Not Given Tramadol HCl (Ultram) 50 mg PO Q6H PRN PRN Reason: Pain, severe (8-10) Last Admin: 10/26/17 14:19 Dose: 50 mg - Labs Labs: 10/27/17 07:06 10/27/17 07:06 PT 11.3 SECONDS (9.7-12.2) 10/27/17 07:06 INR 1.0 10/27/17 07:06 APTT 30 SECONDS (21-34) D 10/27/17 07:06
--- NOTE | 2017-10-28 16:47 | CP.PCM.PN ---
Subjective - Date & Time of Evaluation Date of Evaluation: 10/28/17 Time of Evaluation: 07:40 - Subjective Subjective: clinically same Objective - Vital Signs/Intake and Output Vital Signs (last 24 hours): Temp Pulse Resp BP Pulse Ox 98.4 F 95 H 20 96/69 L 100 10/28/17 16:00 10/28/17 16:00 10/28/17 16:00 10/28/17 16:00 10/28/17 16:00 Intake and Output: 10/28/17 10/28/17 06:59 18:59 Intake Total 500 500 Output Total 1100 500 Balance -600 0 - Medications Medications: Current Medications Anastrozole (Arimidex 1 Mg Tab) 1 mg PO DAILY [facility] Last Admin: 10/28/17 10:01 Dose: 1 mg Enoxaparin Sodium (Lovenox) 130 mg SC Q12 [facility] Last Admin: 10/25/17 10:46 Dose: 130 mg Gabapentin (Neurontin) 400 mg PO TID [facility] Last Admin: 10/28/17 14:18 Dose: 400 mg Hydrochlorothiazide (Hydrodiuril) 25 mg PO DAILY [facility] Last Admin: 10/28/17 09:54 Dose: 25 mg Lisinopril (Zestril) 20 mg PO DAILY [facility] Last Admin: 10/28/17 09:54 Dose: 20 mg Metoclopramide HCl (Reglan) 10 mg PO TID PRN PRN Reason: Nausea/Vomiting Last Admin: 10/19/17 11:10 Dose: 10 mg Mometasone Furoate (Asmanex Twisthaler 220 Mcg) 1 puff IH RQD [facility] Last Admin: 10/28/17 07:32 Dose: 1 puff Pantoprazole Sodium (Protonix Ec Tab) 40 mg PO DAILY [facility] Last Admin: 10/28/17 09:54 Dose: 40 mg Potassium Chloride (K-Dur 20 Meq Er Tab) 40 meq PO DAILY [facility] Last Admin: 10/28/17 09:54 Dose: Not Given Tramadol HCl (Ultram) 50 mg PO Q6H PRN PRN Reason: Pain, severe (8-10) Last Admin: 10/26/17 14:19 Dose: 50 mg - Labs Labs: 10/27/17 07:06 10/27/17 07:06 PT 11.3 SECONDS (9.7-12.2) 10/27/17 07:06 INR 1.0 10/27/17 07:06 APTT 30 SECONDS (21-34) D 10/27/17 07:06 - Constitutional Appears: Well - Head Exam Head Exam: ATRAUMATIC, NORMAL INSPECTION, NORMOCEPHALIC - Eye Exam Eye Exam: EOMI, Normal appearance, PERRL Pupil Exam: NORMAL ACCOMODATION, PERRL - ENT Exam ENT Exam: Mucous Membranes Moist, Normal Exam - Neck Exam Neck Exam: Full ROM, Normal Inspection. absent: Lymphadenopathy - Respiratory Exam Respiratory Exam: Decreased Breath Sounds - Cardiovascular Exam Cardiovascular Exam: REGULAR RHYTHM, +S1, +S2 - GI/Abdominal Exam GI & Abdominal Exam: Soft, Diminished Bowel Sounds - Rectal Exam Rectal Exam: Deferred
--- NOTE | 2017-10-28 17:38 | RAD ---
Date of service: 10/25/2017 PROCEDURE: Fluoroscopy up to 1 hr. HISTORY: DVT COMPARISON: None TECHNIQUE: Standard protocol for this study/examination. FINDINGS: Total fluoroscopic time (continuous mode) utilized during the procedure 58.8 (seconds). Total exam DLP: 44.91 (mGy) IMPRESSION: Less than 1 hr fluoroscopic time utilized during performance of the procedure.
[2017-10-29] MEDS: Pantoprazole 40 mg EC Tab PO SCH (10:07)
[2017-10-29] MEDS: Potassium Chloride 20 mEq ER Tab PO SCH ×2 (10:12→10:29)
--- NOTE | 2017-10-29 12:18 | CP.PCM.PN ---
Subjective - Date & Time of Evaluation Date of Evaluation: 10/28/17 Time of Evaluation: 12:00 - Subjective Subjective: No complaints. Objective - Vital Signs/Intake and Output Vital Signs (last 24 hours): Temp Pulse Resp BP Pulse Ox 98.1 F 80 20 106/74 95 10/29/17 08:46 10/29/17 08:46 10/29/17 08:46 10/29/17 08:46 10/29/17 08:46 Intake and Output: 10/29/17 10/29/17 06:59 18:59 Intake Total 400 Output Total 800 Balance -400 - Medications Medications: Current Medications Anastrozole (Arimidex 1 Mg Tab) 1 mg PO DAILY [facility] Last Admin: 10/29/17 10:16 Dose: 1 mg Enoxaparin Sodium (Lovenox) 130 mg SC Q12 [facility] Last Admin: 10/25/17 10:46 Dose: 130 mg Gabapentin (Neurontin) 400 mg PO TID [facility] Last Admin: 10/29/17 10:09 Dose: 400 mg Hydrochlorothiazide (Hydrodiuril) 25 mg PO DAILY [facility] Last Admin: 10/29/17 10:07 Dose: 25 mg Lisinopril (Zestril) 20 mg PO DAILY [facility] Last Admin: 10/29/17 10:17 Dose: Not Given Metoclopramide HCl (Reglan) 10 mg PO TID PRN PRN Reason: Nausea/Vomiting Last Admin: 10/19/17 11:10 Dose: 10 mg Mometasone Furoate (Asmanex Twisthaler 220 Mcg) 1 puff IH RQD [facility] Last Admin: 10/28/17 07:32 Dose: 1 puff Pantoprazole Sodium (Protonix Ec Tab) 40 mg PO DAILY [facility] Last Admin: 10/29/17 10:07 Dose: 40 mg Potassium Chloride (K-Dur 20 Meq Er Tab) 40 meq PO DAILY [facility] Last Admin: 10/29/17 10:29 Dose: Not Given Tramadol HCl (Ultram) 50 mg PO Q6H PRN PRN Reason: Pain, severe (8-10) Last Admin: 10/29/17 10:23 Dose: 50 mg - Labs Labs: 10/27/17 07:06 10/27/17 07:06 PT 11.3 SECONDS (9.7-12.2) 10/27/17 07:06 INR 1.0 10/27/17 07:06 APTT 30 SECONDS (21-34) D 10/27/17 07:06 - Head Exam Head Exam: ATRAUMATIC - Eye Exam Eye Exam: Normal appearance - ENT Exam ENT Exam: Mucous Membranes Dry - Respiratory Exam Respiratory Exam: NORMAL BREATHING PATTERN - Cardiovascular Exam Cardiovascular Exam: +S1, +S2 - GI/Abdominal Exam GI & Abdominal Exam: Normal Bowel Sounds - Neurological Exam Neurological Exam: Oriented x3 - Psychiatric Exam Psychiatric exam: Normal Affect, Normal Mood - Skin Skin Exam: Warm Assessment and Plan (1) Pathologic fracture Assessment & Plan: for transfer to [facility] for surgery Status: Acute (2) DVT (deep venous thrombosis) Assessment & Plan: on therapeutic anticoagulation Status: Acute (3) Anemia Assessment & Plan: chronic disease Status: Acute (4) Breast cancer Assessment & Plan: stage IV triple negative outpatient chemotherapy Status: Acute
--- NOTE | 2017-10-29 12:20 | CP.PCM.PN ---
Subjective - Date & Time of Evaluation Date of Evaluation: 10/29/17 Time of Evaluation: 11:00 - Subjective Subjective: No complaints, pain well controlled. Objective - Vital Signs/Intake and Output Vital Signs (last 24 hours): Temp Pulse Resp BP Pulse Ox 98.1 F 80 20 106/74 95 10/29/17 08:46 10/29/17 08:46 10/29/17 08:46 10/29/17 08:46 10/29/17 08:46 Intake and Output: 10/29/17 10/29/17 06:59 18:59 Intake Total 400 Output Total 800 Balance -400 - Medications Medications: Current Medications Anastrozole (Arimidex 1 Mg Tab) 1 mg PO DAILY [facility] Last Admin: 10/29/17 10:16 Dose: 1 mg Enoxaparin Sodium (Lovenox) 130 mg SC Q12 [facility] Last Admin: 10/25/17 10:46 Dose: 130 mg Gabapentin (Neurontin) 400 mg PO TID [facility] Last Admin: 10/29/17 10:09 Dose: 400 mg Hydrochlorothiazide (Hydrodiuril) 25 mg PO DAILY [facility] Last Admin: 10/29/17 10:07 Dose: 25 mg Lisinopril (Zestril) 20 mg PO DAILY [facility] Last Admin: 10/29/17 10:17 Dose: Not Given Metoclopramide HCl (Reglan) 10 mg PO TID PRN PRN Reason: Nausea/Vomiting Last Admin: 10/19/17 11:10 Dose: 10 mg Mometasone Furoate (Asmanex Twisthaler 220 Mcg) 1 puff IH RQD [facility] Last Admin: 10/28/17 07:32 Dose: 1 puff Pantoprazole Sodium (Protonix Ec Tab) 40 mg PO DAILY [facility] Last Admin: 10/29/17 10:07 Dose: 40 mg Potassium Chloride (K-Dur 20 Meq Er Tab) 40 meq PO DAILY [facility] Last Admin: 10/29/17 10:29 Dose: Not Given Tramadol HCl (Ultram) 50 mg PO Q6H PRN PRN Reason: Pain, severe (8-10) Last Admin: 10/29/17 10:23 Dose: 50 mg - Labs Labs: 10/27/17 07:06 10/27/17 07:06 PT 11.3 SECONDS (9.7-12.2) 10/27/17 07:06 INR 1.0 10/27/17 07:06 APTT 30 SECONDS (21-34) D 10/27/17 07:06 - Head Exam Head Exam: ATRAUMATIC - Eye Exam Eye Exam: Normal appearance - ENT Exam ENT Exam: Mucous Membranes Dry - Respiratory Exam Respiratory Exam: NORMAL BREATHING PATTERN - Cardiovascular Exam Cardiovascular Exam: +S1, +S2 - GI/Abdominal Exam GI & Abdominal Exam: Normal Bowel Sounds Assessment and Plan (1) Pathologic fracture Assessment & Plan: secondary to bone metastasis from breast cancer for orthopedic surgery at [facility] Status: Acute (2) DVT (deep venous thrombosis) Assessment & Plan: provoked from malignancy on therapeutic lovenox s/p IVC filter Status: Acute (3) Anemia Assessment & Plan: chronic disease Status: Acute (4) Breast cancer Assessment & Plan: stage IV triple negative outpatient chemotherapy Status: Acute
--- NOTE | 2017-10-29 15:23 | CP.PCM.PN ---
Subjective - Date & Time of Evaluation Date of Evaluation: 10/29/17 Time of Evaluation: 15:20 - Subjective Subjective: Patient comfortable, tolerating PT well today Objective - Vital Signs/Intake and Output Vital Signs (last 24 hours): Temp Pulse Resp BP Pulse Ox 98.1 F 80 20 106/74 95 10/29/17 08:46 10/29/17 08:46 10/29/17 08:46 10/29/17 08:46 10/29/17 08:46 Intake and Output: 10/29/17 10/29/17 06:59 18:59 Intake Total 400 500 Output Total 800 500 Balance -400 0 - Medications Medications: Current Medications Anastrozole (Arimidex 1 Mg Tab) 1 mg PO DAILY [facility] Last Admin: 10/29/17 10:16 Dose: 1 mg Enoxaparin Sodium (Lovenox) 130 mg SC Q12 [facility] Last Admin: 10/25/17 10:46 Dose: 130 mg Gabapentin (Neurontin) 400 mg PO TID [facility] Last Admin: 10/29/17 13:49 Dose: 400 mg Hydrochlorothiazide (Hydrodiuril) 25 mg PO DAILY [facility] Last Admin: 10/29/17 10:07 Dose: 25 mg Lisinopril (Zestril) 20 mg PO DAILY [facility] Last Admin: 10/29/17 10:17 Dose: Not Given Metoclopramide HCl (Reglan) 10 mg PO TID PRN PRN Reason: Nausea/Vomiting Last Admin: 10/19/17 11:10 Dose: 10 mg Mometasone Furoate (Asmanex Twisthaler 220 Mcg) 1 puff IH RQD [facility] Last Admin: 10/28/17 07:32 Dose: 1 puff Pantoprazole Sodium (Protonix Ec Tab) 40 mg PO DAILY [facility] Last Admin: 10/29/17 10:07 Dose: 40 mg Potassium Chloride (K-Dur 20 Meq Er Tab) 40 meq PO DAILY [facility] Last Admin: 10/29/17 10:29 Dose: Not Given Tramadol HCl (Ultram) 50 mg PO Q6H PRN PRN Reason: Pain, severe (8-10) Last Admin: 10/29/17 10:23 Dose: 50 mg - Labs Labs: 10/27/17 07:06 10/27/17 07:06 PT 11.3 SECONDS (9.7-12.2) 10/27/17 07:06 INR 1.0 10/27/17 07:06 APTT 30 SECONDS (21-34) D 10/27/17 07:06 - Extremities Exam Additional comments: LLE: knee immobilizer intact, +ROM ankle/toes, swelling improving, sensation intact, calves soft NT neg homans, leg elevated Assessment and Plan (1) Pathological fracture, left tibia, initial encounter for fracture Assessment & Plan: plan for transfer of care to [facility] oncologist Dr. Yee as this is beyond scope of general orthopedics due to complexity of fracture, location, multiple metastatic lesions, and that Dr. Valdes recommended transfer of care to academic institution with musculoskeletal oncology department, arrangements made for 10/31 immobilizer NWB d/w deja Macario with above Status: Acute (2) Breast cancer metastasized to bone Status: Acute (3) DVT (deep venous thrombosis) Status: Acute
--- NOTE | 2017-10-29 18:53 | CP.PCM.PN ---
Subjective - Date & Time of Evaluation Date of Evaluation: 10/29/17 Time of Evaluation: 07:20 - Subjective Subjective: clinically same Objective - Vital Signs/Intake and Output Vital Signs (last 24 hours): Temp Pulse Resp BP Pulse Ox 98.1 F 76 20 103/69 100 10/29/17 16:40 10/29/17 16:40 10/29/17 16:40 10/29/17 16:40 10/29/17 16:40 Intake and Output: 10/29/17 10/29/17 06:59 18:59 Intake Total 400 500 Output Total 800 500 Balance -400 0 - Medications Medications: Current Medications Anastrozole (Arimidex 1 Mg Tab) 1 mg PO DAILY [facility] Last Admin: 10/29/17 10:16 Dose: 1 mg Enoxaparin Sodium (Lovenox) 130 mg SC Q12 [facility] Last Admin: 10/25/17 10:46 Dose: 130 mg Gabapentin (Neurontin) 400 mg PO TID [facility] Last Admin: 10/29/17 18:03 Dose: 400 mg Hydrochlorothiazide (Hydrodiuril) 25 mg PO DAILY [facility] Last Admin: 10/29/17 10:07 Dose: 25 mg Lisinopril (Zestril) 20 mg PO DAILY [facility] Last Admin: 10/29/17 10:17 Dose: Not Given Metoclopramide HCl (Reglan) 10 mg PO TID PRN PRN Reason: Nausea/Vomiting Last Admin: 10/19/17 11:10 Dose: 10 mg Mometasone Furoate (Asmanex Twisthaler 220 Mcg) 1 puff IH RQD [facility] Last Admin: 10/28/17 07:32 Dose: 1 puff Pantoprazole Sodium (Protonix Ec Tab) 40 mg PO DAILY [facility] Last Admin: 10/29/17 10:07 Dose: 40 mg Potassium Chloride (K-Dur 20 Meq Er Tab) 40 meq PO DAILY [facility] Last Admin: 10/29/17 10:29 Dose: Not Given Tramadol HCl (Ultram) 50 mg PO Q6H PRN PRN Reason: Pain, severe (8-10) Last Admin: 10/29/17 10:23 Dose: 50 mg - Labs Labs: 10/27/17 07:06 10/27/17 07:06 PT 11.3 SECONDS (9.7-12.2) 10/27/17 07:06 INR 1.0 10/27/17 07:06 APTT 30 SECONDS (21-34) D 10/27/17 07:06 - Constitutional Appears: Well - Head Exam Head Exam: ATRAUMATIC, NORMAL INSPECTION, NORMOCEPHALIC - Eye Exam Eye Exam: EOMI, Normal appearance, PERRL Pupil Exam: NORMAL ACCOMODATION, PERRL - ENT Exam ENT Exam: Mucous Membranes Moist, Normal Exam - Neck Exam Neck Exam: Full ROM, Normal Inspection. absent: Lymphadenopathy - Respiratory Exam Respiratory Exam: Decreased Breath Sounds - Cardiovascular Exam Cardiovascular Exam: REGULAR RHYTHM, +S1, +S2 - GI/Abdominal Exam GI & Abdominal Exam: Soft, Diminished Bowel Sounds - Rectal Exam Rectal Exam: Deferred
[2017-10-30] MEDS: Potassium Chloride 20 mEq ER Tab PO SCH ×2 (10:18→10:21)
[2017-10-30] MEDS: Pantoprazole 40 mg EC Tab PO SCH (10:18)
[2017-10-30] MEDS ORDERED: Pantoprazole 40 mg EC Tab PO SCH (11:43)
--- NOTE | 2017-10-30 12:05 | CP.PCM.PN ---
Subjective - Date & Time of Evaluation Date of Evaluation: 10/30/17 Time of Evaluation: 12:00 - Subjective Subjective: S- pt comfortable/somewhat anxious at time of eval Objective - Vital Signs/Intake and Output Vital Signs (last 24 hours): Temp Pulse Resp BP Pulse Ox 97.8 F 86 20 97/66 L 96 10/30/17 07:12 10/30/17 07:12 10/30/17 07:12 10/30/17 07:12 10/30/17 07:12 Intake and Output: 10/30/17 10/30/17 06:59 18:59 Intake Total 500 Output Total 350 Balance 150 - Medications Medications: Current Medications Anastrozole (Arimidex 1 Mg Tab) 1 mg PO DAILY [facility] Enoxaparin Sodium (Lovenox) 130 mg SC Q12 [facility] Last Admin: 10/25/17 10:46 Dose: 130 mg Gabapentin (Neurontin) 400 mg PO TID [facility] Hydrochlorothiazide (Hydrodiuril) 25 mg PO DAILY [facility] Lisinopril (Zestril) 20 mg PO DAILY [facility] Metoclopramide HCl (Reglan) 10 mg PO TID PRN PRN Reason: Nausea/Vomiting Mometasone Furoate (Asmanex Twisthaler 220 Mcg) 1 puff IH RQD [facility] Last Admin: 10/28/17 07:32 Dose: 1 puff Pantoprazole Sodium (Protonix Ec Tab) 40 mg PO DAILY [facility] Potassium Chloride (K-Dur 20 Meq Er Tab) 40 meq PO DAILY [facility] Last Admin: 10/30/17 10:21 Dose: Not Given Tramadol HCl (Ultram) 50 mg PO Q6H PRN PRN Reason: Pain, severe (8-10) - Labs Labs: 10/27/17 07:06 10/27/17 07:06 PT 11.3 SECONDS (9.7-12.2) 10/27/17 07:06 INR 1.0 10/27/17 07:06 APTT 30 SECONDS (21-34) D 10/27/17 07:06 - Skin Additional comments: systemic: essentially unchanged systemic eval as per Dr Nate Mitchell and Dr Gibson Musculoskeltal exam R lower ext immobilized in knee immobilizer No progressive or new ortho changes Assessment and Plan - Assessment and Plan (Free Text) Assessment: A- metastatic breast ca with path fx proximal tibia and multiple meastatses P- pt to be transefrred to [facility] musculoskeletal oncology unit
--- NOTE | 2017-10-30 12:27 | CP.PCM.PN ---
Subjective - Date & Time of Evaluation Date of Evaluation: 10/30/17 Time of Evaluation: 12:24 - Subjective Subjective: PLAN FOR TRANSFER IS FOR TOMORROW ONCE BED IS AVAILABLE AT [facility]. DR. BONNER AND ORTHO AWARE AND ON BOARD W PLAN. DR. HERNANDES ALSO AWARE OF PLAN AND IN AGREEMENT. MED REC FOR D/C, D/C INSTRUCTIONS, AND TRANSFER ORDER ALREADY LEFT BY ME IN PREPARATION FOR TOMORROW. EMTALA DONE EARLIER THIS WEEK. NO FURTHER ORDERS. CM AND/OR SW TO ARRANGE TRANSPORTATION TOMORROW AND OTHER ARRANGEMENTS. -PLACE UNDER THE SERVICE OF DR. PINTO (ORTHOPEDICS)---CALL DR. PINTO FOR ADMITTING ORDERS UPON ARRIVAL TO [facility]. -SURGERY, MEDICATIONS, FURTHER TREATMENT PER DR. PINTO AND ORTHO TEAM AT [facility]. -PLEASE NOTE, MS. TEMPLE WILL NEED TO BE MEDICALLY CLEARED BY ORTHO AFTER SURGERY IN ORDER TO RESTART HER CHEMOTHERAPY (THIS IS PER DR. ROSALIE HERNANDES, HER PRIMARY ONCOLOGIST). FEEL FREE TO CONTACT HIM FOR ANY QUESTIONS OR CONCERNS. -FOR QUESTIONS REGARDING RECENT HOSPITALIZATION, FEEL FREE TO CONTACT DR. MALONEY (ORTHO) OR DR. Lilli BONNER (GENERAL MEDICINE). Objective - Vital Signs/Intake and Output Vital Signs (last 24 hours): Temp Pulse Resp BP Pulse Ox 97.8 F 86 20 97/66 L 96 10/30/17 07:12 10/30/17 07:12 10/30/17 07:12 10/30/17 07:12 10/30/17 07:12 Intake and Output: 10/30/17 10/30/17 06:59 18:59 Intake Total 500 Output Total 350 Balance 150 - Medications Medications: Current Medications Anastrozole (Arimidex 1 Mg Tab) 1 mg PO DAILY [facility] Enoxaparin Sodium (Lovenox) 130 mg SC Q12 [facility] Last Admin: 10/25/17 10:46 Dose: 130 mg Gabapentin (Neurontin) 400 mg PO TID [facility] Hydrochlorothiazide (Hydrodiuril) 25 mg PO DAILY [facility] Lisinopril (Zestril) 20 mg PO DAILY [facility] Metoclopramide HCl (Reglan) 10 mg PO TID PRN PRN Reason: Nausea/Vomiting Mometasone Furoate (Asmanex Twisthaler 220 Mcg) 1 puff IH RQD [facility] Last Admin: 10/28/17 07:32 Dose: 1 puff Pantoprazole Sodium (Protonix Ec Tab) 40 mg PO DAILY [facility] Potassium Chloride (K-Dur 20 Meq Er Tab) 40 meq PO DAILY [facility] Last Admin: 10/30/17 10:21 Dose: Not Given Tramadol HCl (Ultram) 50 mg PO Q6H PRN PRN Reason: Pain, severe (8-10) - Labs Labs: 10/27/17 07:06 10/27/17 07:06 PT 11.3 SECONDS (9.7-12.2) 10/27/17 07:06 INR 1.0 10/27/17 07:06 APTT 30 SECONDS (21-34) D 10/27/17 07:06
[2017-10-30 14:30] LABS: HEMOGLOBIN 10.2 g/dL (11.0-16.0)
[2017-10-30 14:32] LABS: INR 1.1; PROTHROMBIN TIME 12.2 SECONDS (9.7-12.2)
--- NOTE | 2017-10-30 18:04 | CP.PCM.PN ---
Subjective - Date & Time of Evaluation Date of Evaluation: 10/30/17 Time of Evaluation: 07:40 - Subjective Subjective: clinically same Objective - Vital Signs/Intake and Output Vital Signs (last 24 hours): Temp Pulse Resp BP Pulse Ox 99.6 F 79 20 117/72 94 L 10/30/17 15:00 10/30/17 15:00 10/30/17 15:00 10/30/17 15:00 10/30/17 15:00 Intake and Output: 10/30/17 10/30/17 06:59 18:59 Intake Total 500 360 Output Total 350 400 Balance 150 -40 - Medications Medications: Current Medications Anastrozole (Arimidex 1 Mg Tab) 1 mg PO DAILY [facility] Enoxaparin Sodium (Lovenox) 130 mg SC Q12 [facility] Last Admin: 10/25/17 10:46 Dose: 130 mg Gabapentin (Neurontin) 400 mg PO TID [facility] Last Admin: 10/30/17 13:34 Dose: 400 mg Hydrochlorothiazide (Hydrodiuril) 25 mg PO DAILY [facility] Lisinopril (Zestril) 20 mg PO DAILY [facility] Metoclopramide HCl (Reglan) 10 mg PO TID PRN PRN Reason: Nausea/Vomiting Mometasone Furoate (Asmanex Twisthaler 220 Mcg) 1 puff IH RQD [facility] Last Admin: 10/28/17 07:32 Dose: 1 puff Pantoprazole Sodium (Protonix Ec Tab) 40 mg PO DAILY [facility] Potassium Chloride (K-Dur 20 Meq Er Tab) 40 meq PO DAILY [facility] Last Admin: 10/30/17 10:21 Dose: Not Given Tramadol HCl (Ultram) 50 mg PO Q6H PRN PRN Reason: Pain, severe (8-10) Last Admin: 10/30/17 13:41 Dose: 50 mg - Labs Labs: 10/30/17 14:09 10/27/17 07:06 PT 12.2 SECONDS (9.7-12.2) 10/30/17 14:09 INR 1.1 10/30/17 14:09 APTT 33 SECONDS (21-34) 10/30/17 14:09 - Constitutional Appears: Well - Head Exam Head Exam: ATRAUMATIC, NORMAL INSPECTION, NORMOCEPHALIC - Eye Exam Eye Exam: EOMI, Normal appearance, PERRL Pupil Exam: NORMAL ACCOMODATION, PERRL - ENT Exam ENT Exam: Mucous Membranes Moist, Normal Exam - Neck Exam Neck Exam: Full ROM, Normal Inspection. absent: Lymphadenopathy - Respiratory Exam Respiratory Exam: Decreased Breath Sounds - Cardiovascular Exam Cardiovascular Exam: REGULAR RHYTHM, +S1, +S2 - GI/Abdominal Exam GI & Abdominal Exam: Soft, Diminished Bowel Sounds - Rectal Exam Rectal Exam: Deferred
[2017-10-31 08:34] VITALS: BP 110/75; PULSE 85; TEMP 97.7; O2SAT 97
--- NOTE | 2017-10-31 22:15 | CP.PCM.PN ---
Subjective - Date & Time of Evaluation Date of Evaluation: 10/30/17 Time of Evaluation: 16:00 - Subjective Subjective: No complaints. Objective - Vital Signs/Intake and Output Vital Signs (last 24 hours): Temp Pulse Resp BP Pulse Ox 97.7 F 85 20 110/75 97 10/31/17 08:34 10/31/17 08:34 10/31/17 08:34 10/31/17 08:34 10/31/17 08:34 Intake and Output: 10/31/17 11/01/17 18:59 06:59 Intake Total 315 Output Total 450 Balance -135 - Labs Labs: 10/30/17 14:09 10/27/17 07:06 PT 12.2 SECONDS (9.7-12.2) 10/30/17 14:09 INR 1.1 10/30/17 14:09 APTT 33 SECONDS (21-34) 10/30/17 14:09 - Head Exam Head Exam: ATRAUMATIC - Eye Exam Eye Exam: Normal appearance - ENT Exam ENT Exam: Mucous Membranes Dry - Respiratory Exam Respiratory Exam: NORMAL BREATHING PATTERN - Cardiovascular Exam Cardiovascular Exam: +S1, +S2 - GI/Abdominal Exam GI & Abdominal Exam: Normal Bowel Sounds Assessment and Plan (1) Pathologic fracture Assessment & Plan: for orthopedic surgery at [facility] Status: Acute (2) DVT (deep venous thrombosis) Assessment & Plan: provoked from malignancy on therapeutic lovenox Status: Acute (3) Anemia Assessment & Plan: chronic disease Status: Acute (4) Breast cancer Assessment & Plan: stage IV triple negative outpatient chemotherapy Status: Acute
== END 2017-10-31 08:25 | disposition short-term general hospital (02) | DRG 478 ==
LOC: C.ER 11:04 → C.9E 12:54 → C.3T 13:10 → C.9E 13:37 → C.3T 17:01 → OBSVTOIN 10-17 15:59 → C.3T 10-17 17:40
PROVIDERS: ADMIT Internal Medicine Nephrology; ATTEND Internal Medicine Nephrology
PROC: 06PY3DZ Removal of Intraluminal Device from Lower Vein, Percutaneous Approach (ICD-10-PCS; 2017-10-25)
PROC: B519ZZA Fluoroscopy of Inferior Vena Cava, Guidance (ICD-10-PCS; 2017-10-25)
PROC: 06H03DZ Insertion of Intraluminal Device into Inferior Vena Cava, Percutaneous Approach (ICD-10-PCS; principal; 2017-10-25 07:45)
DX: I82.431 Acute embolism and thrombosis of right popliteal vein (principal); C79.51 Secondary malignant neoplasm of bone; C78.00 Secondary malignant neoplasm of unspecified lung; M84.562A Pathological fracture in neoplastic disease, left tibia, initial encounter for fracture; C50.911 Malignant neoplasm of unspecified site of right female breast; D64.9 Anemia, unspecified; E66.9 Obesity, unspecified; Z68.42 Body mass index [BMI] 45.0-49.9, adult; I10 Essential (primary) hypertension; T45.1X5A Adverse effect of antineoplastic and immunosuppressive drugs, initial encounter; Z17.0 Estrogen receptor positive status [ER+]; D70.8 Other neutropenia; D63.8 Anemia in other chronic diseases classified elsewhere; Z99.3 Dependence on wheelchair; Z53.9 Procedure and treatment not carried out, unspecified reason

== ENCOUNTER 2018-02-23 14:53 | Inpatient (IN) | payer OTHER ==
[2018-02-23 14:54] VITALS: BMI 50.1
--- NOTE | 2018-02-23 15:16 | C.PDOC ---
Time Seen by Provider: 02/23/18 14:56 Chief Complaint (Nursing): Cough, Cold, Congestion History Per: Patient History/Exam Limitations: no limitations Onset/Duration Of Symptoms: Days Current Symptoms Are (Timing): Still Present Past Medical History Reviewed: Historical Data, Nursing Documentation, Vital Signs Vital Signs: Last Vital Signs Temp 100 F H 02/23/18 14:55 Pulse 105 H 02/23/18 14:55 Resp 26 H 02/23/18 14:55 BP 116/49 L 02/23/18 14:55 Pulse Ox 98 02/23/18 14:55 - Medical History PMH: Asthma (CHILDHOOD NO MEDS), Fractures (TOE/ARM NO SURGERY), HTN, Malignancy (BREAST CANCER on chemotherapy), Pneumonia (Childhood) - [facility] Procedures CONTRAST PHLEBOGRAM NEC (04/10/14) DX ULTRASOUND-THORAX NEC (11/09/13) ENDO RECTUM POLYPECTOMY (11/30/12) EXCISION OF RIGHT LOWER LUNG LOBE, PERC APPROACH, DIAGN (07/08/17) FLUOROSCOPY OF INFERIOR VENA CAVA, GUIDANCE (10/17/17) INSERTION OF INTRALUM DEV INTO INF VENA CAVA, PERC APPROACH (10/17/17) INSERTION OF TOTALLY IMPLANTABLE VASC ACCESS DEVIC (11/09/13) LOCAL EXCIS BREAST LES (08/17/13) LYMPHATIC STRUCT BIOPSY (08/17/13) REMOVAL OF INTRALUMINAL DEVICE FROM LOW VEIN, PERC APPROACH (10/17/17) REVISION OF VAD IN TRUNK SUBCU/FASCIA, PERC APPROACH (07/08/17) THORAX SFT TISS XRAY NEC (11/09/13) UNILAT EXTEN SIMP MASTEC (07/05/14) UNILAT REDUCT MAMMOPLAST (07/05/14) Family History: States: Unknown Family Hx - Social History Hx Tobacco Use: No Hx Alcohol Use: No Hx Substance Use: No - Immunization History Hx Tetanus Toxoid Vaccination: No Hx Influenza Vaccination: No Hx Pneumococcal Vaccination: No Review Of Systems Except As Marked, All Systems Reviewed And Found Negative. Constitutional: Positive for: Weakness, Other (cold). Negative for: Fever, Chills Cardiovascular: Positive for: Other (congestion ) Respiratory: Positive for: Cough Physical Exam - Physical Exam Appears: Non-toxic, No Acute Distress, Other (unable to talk well; very weak ) Skin: Normal Color, Warm, Dry Head: Atraumatic, Normacephalic Eye(s): bilateral: Normal Inspection, EOMI Oral Mucosa: Moist Throat: Normal Neck: Normal ROM, Supple Chest: Symmetrical, No Deformity, Tenderness (to right anterior rib ) Cardiovascular: Rhythm Regular Respiratory: Normal Breath Sounds Gastrointestinal/Abdominal: Soft, No Tenderness Back: No CVA Tenderness Extremity: Pedal Edema (b/l), Swelling (right arm ), Other (rash left calf ) Pulses: Left Dorsalis Pedis: Normal, Right Dorsalis Pedis: Normal Neurological/Psych: Oriented x3, Normal Speech, Normal Cognition Gait: Steady ED Course And Treatment O2 Sat by Pulse Oximetry: 98 (RA) Pulse Ox Interpretation: Normal Medical Decision Making Medical Decision Making: Impression: cold, cough, congestion with weakness Plans: -- chem labs -- blood work -- CXR -- blood Cx -- Influenza A B -- UA -- Venous duplex scan Disposition - Disposition Forms: [place] (Malay) - PA / DEPORTATION EXAMINER / Resident Statement / has reviewed & agrees with the documentation as recorded. - Scribe Statement The provider has reviewed the documentation as recorded by the Cayla Braun Do All medical record entries made by the Scribanthony were at my direction and personally dictated by me. I have reviewed the chart and agree that the record accurately reflects my personal performance of the history, physical exam, medical decision making, and the department course for this patient. I have also personally directed, reviewed, and agree with the discharge instructions and disposition.
[2018-02-23 15:44] LABS: BASO % 2.3 % (0.0-2.0); EOS % 0.3 % (0.0-4.0); LYMPH # 0.2 K/uL (1.0-4.3); LYMPH % 62.6 % (20.0-40.0); MEAN CORPUSCULAR HEMOGLOBIN 24.4 pg (27.0-31.0); MEAN CORPUSCULAR HGB CONC 32.7 g/dL (33.0-37.0); MEAN PLATELET VOLUME 7.7 fL (7.2-11.7); MONO % 2.5 % (0.0-10.0); NEUT # 0.1 K/uL (1.8-7.0); NEUT % 32.3 % (50.0-75.0); NRBC % 0.8 % (0.0-2.0); RBC 3.37 Mil/uL (3.80-5.20); RED CELL DISTRIBUTION WIDTH 16.9 % (11.5-14.5)
[2018-02-23] MEDS ORDERED: Dexamethasone 4 mg/1 ml IVP STA (15:45)
--- NOTE | 2018-02-23 15:45 | C.PDOC ---
History Of Present Illness 57 y/o female pt presents to the ER complaining of cold, cough, congestion and general weakness. Pt had metastatic breast cancer and mets to bones. Pt frequently falls at home and fell last night, injuring her ribs. Pt last chemotherapy was x2 days ago. Pt denies fever and chills. Time Seen by Provider: 02/23/18 14:56 Chief Complaint (Nursing): Cough, Cold, Congestion History Per: Patient History/Exam Limitations: no limitations Onset/Duration Of Symptoms: Days Current Symptoms Are (Timing): Still Present Associated Symptoms: Cough, Nasal Congestion Severity: Mild Past Medical History Reviewed: Historical Data, Nursing Documentation, Vital Signs Vital Signs: Last Vital Signs Temp 100 F H 02/23/18 14:55 Pulse 105 H 02/23/18 14:55 Resp 26 H 02/23/18 14:55 BP 116/49 L 02/23/18 14:55 Pulse Ox 98 02/23/18 14:55 - Medical History PMH: Asthma (CHILDHOOD NO MEDS), Fractures (TOE/ARM NO SURGERY), HTN, Malignancy (BREAST CANCER on chemotherapy), Pneumonia (Childhood) Other Surgeries: port left chest, ortho surgery left knee - [facility] Procedures CONTRAST PHLEBOGRAM NEC (04/10/14) DX ULTRASOUND-THORAX NEC (11/09/13) ENDO RECTUM POLYPECTOMY (11/30/12) EXCISION OF RIGHT LOWER LUNG LOBE, PERC APPROACH, DIAGN (07/08/17) FLUOROSCOPY OF INFERIOR VENA CAVA, GUIDANCE (10/17/17) INSERTION OF INTRALUM DEV INTO INF VENA CAVA, PERC APPROACH (10/17/17) INSERTION OF TOTALLY IMPLANTABLE VASC ACCESS DEVIC (11/09/13) LOCAL EXCIS BREAST LES (08/17/13) LYMPHATIC STRUCT BIOPSY (08/17/13) REMOVAL OF INTRALUMINAL DEVICE FROM LOW VEIN, PERC APPROACH (10/17/17) REVISION OF VAD IN TRUNK SUBCU/FASCIA, PERC APPROACH (07/08/17) THORAX SFT TISS XRAY NEC (11/09/13) UNILAT EXTEN SIMP MASTEC (07/05/14) UNILAT REDUCT MAMMOPLAST (07/05/14) Family History: States: Unknown Family Hx - Social History Hx Tobacco Use: No Hx Alcohol Use: No Hx Substance Use: No - Immunization History Hx Tetanus Toxoid Vaccination: No Hx Influenza Vaccination: No Hx Pneumococcal Vaccination: No Review Of Systems Except As Marked, All Systems Reviewed And Found Negative. Constitutional: Positive for: Weakness, Other (rib injury; cold; congestion ). Negative for: Fever, Chills Respiratory: Positive for: Cough Musculoskeletal: Positive for: Arm Pain, Leg Pain Physical Exam - Physical Exam Appears: Non-toxic, No Acute Distress, Other (difficulty talking; very weak ) Skin: Normal Color, Warm, Dry Head: Atraumatic, Normacephalic Eye(s): bilateral: Normal Inspection, PERRL, EOMI Nose: Normal Oral Mucosa: Moist Throat: Normal Neck: Normal ROM, Supple Chest: Symmetrical, No Deformity, Tenderness (right anterior rib ) Cardiovascular: Rhythm Regular Respiratory: Normal Breath Sounds Gastrointestinal/Abdominal: Soft, No Tenderness Back: No CVA Tenderness Extremity: Pedal Edema (b/l ), Swelling (rigth arm ), Other (rash on left calf due to chemo) Pulses: Left Dorsalis Pedis: Normal, Right Dorsalis Pedis: Normal Neurological/Psych: Oriented x3, Normal Speech, Normal Cognition Gait: Unable To Assess ED Course And Treatment - Laboratory Results Result Diagrams: 02/23/18 15:32 02/23/18 15:32 Lab Interpretation: Abnormal O2 Sat by Pulse Oximetry: 98 (RA) Pulse Ox Interpretation: Normal - Radiology CXR: Interpreted by Me CXR Interpretation: Yes: No Acute Disease - Other Rad chest X-Ray: Read By Radiologist Interpretation: Accession No. : [id number]. Patient Name / ID : WINDY AVILA / [id number]. Exam Date : 02/23/2018 15:28:11 ( Approved ). Study Comment : Sex / Age : F / 57Y. Creator : Geovanny Avalos MD. Dictator : Geovanny Avalos MD. Plating Inspector : Production Welding Supervisor : Geovanny Avalos MD. Approver2 : Report Date : 02/23/2018 15:48:22. My Comment : . Date of service: 02/23/2018. HISTORY: SOB. COMPARISON: Chest radiographs 07/09/2017. FINDINGS: LUNGS: Left MediPort unchanged in position. No acute infiltrate bilaterally. Nodular density not identified at the mid right lung zone laterally in the interval. PLEURA: No significant pleural effusion identified, no pneumothorax apparent. CARDIOVASCULAR: No aortic atherosclerotic calcification present. Normal cardiac size. No pulmonary vascular congestion. OSSEOUS STRUCTURES: No significant abnormalities. VISUALIZED UPPER ABDOMEN: Normal. OTHER FINDINGS: None. IMPRESSION: No acute infiltrate pleural effusion or pneumothorax bilaterally. Potentially improve metastatic condition in the right lung. Progress Note: Treated with IVF NSS. Doppler US bilateral LE and right UE (-) DVT as per quality assurance lab technician. Case discussed with Dr Nate Mitchell who request MRI of spine and decadron Reassessment Condition: Unchanged - Physician Consult Information Time Consulting Physician Contacted: 15:45 Physician Contacted: Chris Mitchell Outcome Of Conversation: Talked to Dr. Chris Mitchell who would like pt to receive an MRI on spine. Medical Decision Making Medical Decision Making: Impression: cold, cough, congestion with weakness Plans: -- chem labs -- blood work -- CXR -- blood Cx -- Influenza A B -- UA -- Venous duplex scan Disposition Discussed With DrDarrel: Amina Mitchell Doctor Will See Patient In The: Hospital - Disposition Disposition: HOSPITALIZED Disposition Time: 18:00 Condition: STABLE - POA Present On Arrival: None - Clinical Impression Clinical Impression: Metastatic cancer, Swelling of right upper extremity, Edema of both legs, Neutropenia - PA / NARCOTICS INVESTIGATOR / Resident Statement / has reviewed & agrees with the documentation as recorded. - Scribe Statement The provider has reviewed the documentation as recorded by the Cayla Bruan Do All medical record entries made by the Scribe were at my direction and personally dictated by me. I have reviewed the chart and agree that the record accurately reflects my personal performance of the history, physical exam, medical decision making, and the department course for this patient. I have also personally directed, reviewed, and agree with the discharge instructions and disposition.
[2018-02-23 15:47] LABS: HEMOGLOBIN 8.2 g/dL (11.0-16.0); MEAN CELL VOLUME 74.6 fL (81.0-99.0); WHITE BLOOD COUNT 0.4 K/uL (4.8-10.8)
--- NOTE | 2018-02-23 15:51 | RAD ---
Date of service: 02/23/2018 HISTORY: SOB COMPARISON: Chest radiographs 07/09/2017. FINDINGS: LUNGS: Left MediPort unchanged in position. No acute infiltrate bilaterally. Nodular density not identified at the mid right lung zone laterally in the interval. PLEURA: No significant pleural effusion identified, no pneumothorax apparent. CARDIOVASCULAR: No aortic atherosclerotic calcification present. Normal cardiac size. No pulmonary vascular congestion. OSSEOUS STRUCTURES: No significant abnormalities. VISUALIZED UPPER ABDOMEN: Normal. OTHER FINDINGS: None. IMPRESSION: No acute infiltrate pleural effusion or pneumothorax bilaterally. Potentially improve metastatic condition in the right lung.
[2018-02-23 15:54] LABS: ALB/GLOB RATIO 1.1 (1.0-2.1); ALBUMIN 3.1 g/dL (3.5-5.0); ALT/SGPT 29 U/L (9-52); AST/SGOT 32 U/L (14-36); BLOOD UREA NITROGEN 13 mg/dL (7-17); CALCIUM 7.8 mg/dl (8.6-10.4); GFR NON-AFRICAN AMERICAN > 60
[2018-02-23 16:01] LABS: URINE BACTERIA RARE (<OCC); URINE BILIRUBIN NEGATIVE (NEGATIVE); URINE BLOOD 2+ (NEGATIVE); URINE CLARITY Clear (Clear); URINE COLOR Amber (YELLOW); URINE GLUCOSE (UA) NORMAL (Normal); URINE LEUKOCYTE ESTERASE NEG Leu/uL (Negative); URINE PROTEIN 2+ mg/dL (NEGATIVE)
--- NOTE | 2018-02-23 18:06 | MRI ---
Date of service: 02/23/2018 PROCEDURE: MR CERVICAL SPINE WITHOUT CONTRAST HISTORY: bone metastasis COMPARISON: None available. TECHNIQUE: Multiecho multiplanar sequences were performed through the cervical spine without the use of intravenous contrast. FINDINGS: There is normal alignment of the cervical vertebral bodies. There is normal cervical lordosis. There is no acute fracture or spondylolisthesis. Bone marrow signal is within normal limits. The craniocervical junction is normal. The atlantoaxial joint is normal. There is mild atrophy of the cysts lower cervical cord with prominent central canal. The paraspinous soft tissues are normal. C2-C3: No disc herniation, spinal canal stenosis or neural foraminal narrowing. C3-C4: No disc herniation, spinal canal stenosis or neural foraminal narrowing. C4-C5: Central disc protrusion indents the ventral thecal sac without central spinal canal stenosis. Moderate bilateral facet arthropathy contribute to moderate right and mild left neural foraminal narrowing. C5-C6: Broad-based disc osteophyte complex in conjunction with mild ligamentum flavum infolding result in moderate spinal canal stenosis. Moderate bilateral facet arthropathy contribute to moderate right and severe left neural foraminal narrowing. C6-C7: Broad-based central disc protrusion indents the ventral thecal sac and in conjunction with mild ligamentum flavum infolding result in severe spinal canal stenosis. Moderate bilateral facet arthropathy contribute to severe neural foraminal narrowing. C7-T1: No disc herniation, spinal canal stenosis or neural foraminal narrowing. OTHER FINDINGS: Incompletely imaged are multilobular T2 hyperintense lesions in the cerebellar hemispheres, more on the left. IMPRESSION: 1. No MRI evidence for osseous metastasis. 2. Multilevel degenerative disc disease, worse at C6-7 with a broad-based central disc protrusion, severe spinal canal stenosis and severe neural foraminal narrowing. 3. Diffuse atrophy of the lower cervical cord with a prominent central canal.
[2018-02-23] MEDS ORDERED: Potassium Chloride 20 mEq/15 ml LIQ UD PO STA (18:30)
[2018-02-23] MEDS ORDERED: Potassium Chloride 20 mEq ER Tab PO ONE (19:02)
[2018-02-23] MEDS ORDERED: Potassium Chloride 20 mEq 100 ML ONE (19:02)
--- NOTE | 2018-02-23 19:34 | CP.PCM.HP ---
Past Patient History - Past Medical History & Family History Past Medical History?: Yes - Past Social History Smoking Status: Never Smoked - CARDIAC Hx Hypertension: Yes - PULMONARY Hx Asthma: Yes (CHILDHOOD NO MEDS) Hx Pneumonia: Yes (Childhood) - NEUROLOGICAL Hx Neurological Disorder: No - HEENT Hx HEENT Problems: No Other/Comment: GLASSES - RENAL Hx Chronic Kidney Disease: No - ENDOCRINE/METABOLIC Hx Endocrine Disorders: No - HEMATOLOGICAL/ONCOLOGICAL Hx Cancer: Yes (breast 2018) Other/Comment: in chemotherapy every wednesday - INTEGUMENTARY Hx Dermatological Problems: No - MUSCULOSKELETAL/RHEUMATOLOGICAL Hx Fractures: Yes (TOE/ARM NO SURGERY) - GENITOURINARY/GYNECOLOGICAL Hx Genitourinary Disorders: Yes Other/Comment: right breast cancer - PSYCHIATRIC Hx Substance Use: No - SURGICAL HISTORY Hx Surgeries: Yes Hx Section: Yes (one) Other/Comment: breast removal s/p breast ca july 2014. - ANESTHESIA Hx Anesthesia: Yes Hx Anesthesia Reactions: No Hx Malignant Hyperthermia: No Meds Allergies/Adverse Reactions: Allergies Allergy/AdvReac Type Severity Reaction Status Date / Time No Known Allergies Allergy Verified 02/23/18 14:57 Physical Exam - Constitutional Appears: Well - Head Exam Head Exam: ATRAUMATIC, NORMAL INSPECTION, NORMOCEPHALIC - Eye Exam Eye Exam: EOMI, Normal appearance, PERRL Pupil Exam: NORMAL ACCOMODATION, PERRL - ENT Exam ENT Exam: Mucous Membranes Moist, Normal Exam - Neck Exam Neck exam: Positive for: Normal Inspection - Respiratory Exam Respiratory Exam: Decreased Breath Sounds - Cardiovascular Exam Cardiovascular Exam: REGULAR RHYTHM, +S1, +S2 - GI/Abdominal Exam GI & Abdominal Exam: Diminished Bowel Sounds, Soft - Rectal Exam Rectal Exam: Deferred Results - Vital Signs Recent Vital Signs: Last Vital Signs Temp 97.9 F 02/23/18 19:26 Pulse 102 H 02/23/18 19:26 Resp 18 02/23/18 19:26 BP 129/86 02/23/18 19:26 Pulse Ox 100 02/23/18 19:26 - Labs Result Diagrams: 02/23/18 15:32 02/23/18 15:32 Labs: Laboratory Results - last 24 hr 02/23/18 02/23/18 02/23/18 15:32 15:32 15:32 WBC 0.4 L* D RBC 3.37 L Hgb 8.2 L D Hct 25.1 L MCV 74.6 L D MCH 24.4 L MCHC 32.7 L RDW 16.9 H Plt Count 224 MPV 7.7 Neut % (Auto) 32.3 L Lymph % (Auto) 62.6 H [place] % (Auto) 2.5 Eos % (Auto) 0.3 Baso % (Auto) 2.3 H Neut # (Auto) 0.1 L Lymph # (Auto) 0.2 L [place] # (Auto) 0.0 Eos # (Auto) 0.0 Baso # (Auto) 0.0 Differential Comment Sodium 135 Potassium 2.7 L Chloride 99 Carbon Dioxide 30 Anion Gap 10 BUN 13 Creatinine 0.5 L Est GFR ( Amer) > 60 Est GFR (Non-Af Amer) > 60 Random Glucose 115 H Calcium 7.8 L Total Bilirubin 3.3 H AST 32 ALT 29 Alkaline Phosphatase 71 Total Protein 5.8 L Albumin 3.1 L D Globulin 2.7 Albumin/Globulin Ratio 1.1 Urine Color Urine Clarity Urine pH Ur Specific [place] Urine Protein Urine Glucose (UA) Urine Ketones Urine Blood Urine Nitrate Urine Bilirubin Urine Urobilinogen Ur Leukocyte Esterase Urine WBC (Auto) Urine RBC (Auto) Urine Bacteria Influenza Typ A,B (EIA) Negative for flu a/b 02/23/18 15:43 WBC RBC Hgb Hct MCV MCH MCHC RDW Plt Count MPV Neut % (Auto) Lymph % (Auto) [place] % (Auto) Eos % (Auto) Baso % (Auto) Neut # (Auto) Lymph # (Auto) [place] # (Auto) Eos # (Auto) Baso # (Auto) Differential Comment Sodium Potassium Chloride Carbon Dioxide Anion Gap BUN Creatinine Est GFR ( Amer) Est GFR (Non-Af Amer) Random Glucose Calcium Total Bilirubin AST ALT Alkaline Phosphatase Total Protein Albumin Globulin Albumin/Globulin Ratio Urine Color Tammy Urine Clarity Clear Urine pH 6.0 Ur Specific [place] 1.024 Urine Protein 2+ H Urine Glucose (UA) Normal Urine Ketones Negative Urine Blood 2+ H Urine Nitrate Negative Urine Bilirubin Negative Urine Urobilinogen 2.0 H Ur Leukocyte Esterase Neg Urine WBC (Auto) 9 H Urine RBC (Auto) 11 H Urine Bacteria Rare Influenza Typ A,B (EIA)
[2018-02-23] MEDS: MethylPREDNISolone 40 mg Vial IVP SCH (22:23)
[2018-02-24] MEDS: MethylPREDNISolone 40 mg Vial IVP SCH ×3 (05:47→21:34)
[2018-02-24] MEDS: Enoxaparin 40 mg Syringe SC SCH (09:20)
[2018-02-24] MEDS: Pantoprazole 40 mg EC Tab PO SCH (09:20)
[2018-02-24 11:24] LABS: LYMPH # 0.1 K/uL (1.0-4.3); LYMPH % 56.4 % (20.0-40.0); MEAN CELL VOLUME 73.9 fL (81.0-99.0); MEAN CORPUSCULAR HEMOGLOBIN 24.5 pg (27.0-31.0); MEAN CORPUSCULAR HGB CONC 33.2 g/dL (33.0-37.0); MONO % 11.1 % (0.0-10.0); NEUT % 32.5 % (50.0-75.0); NRBC % 1.5 % (0.0-2.0); RBC 3.27 Mil/uL (3.80-5.20)
[2018-02-24 11:35] LABS: WHITE BLOOD COUNT 0.1 K/uL (4.8-10.8)
[2018-02-24 11:58] LABS: ALB/GLOB RATIO 1.1 (1.0-2.1); ALT/SGPT 29 U/L (9-52); AST/SGOT 24 U/L (14-36); BLOOD UREA NITROGEN 12 mg/dL (7-17); CALCIUM 7.7 mg/dl (8.6-10.4); GFR NON-AFRICAN AMERICAN > 60
[2018-02-24] MEDS ORDERED: Potassium Chloride 20 mEq ER Tab PO ONE ×2 (13:45→18:00)
[2018-02-24] MEDS: guaiFENesin 100 mg/5 ml Syrup UD PO PRN (13:52)
--- NOTE | 2018-02-24 13:54 | MRI ---
Date of service: 02/23/2018 PROCEDURE: MR THORACIC SPINE WITHOUT CONTRAST HISTORY: bone metastisis COMPARISON: Comparison is made with the previous CT dated 10/22/2017 TECHNIQUE: Multiecho multiplanar sequences were performed through the thoracic spine without the use of intravenous contrast. FINDINGS: ALIGNMENT: Normal thoracic spinal alignment. Normal thoracic kyphosis. VERTEBRA: There is hyperintense T1 and T2 signal bony lesion noted at the anterior right aspect of T11 vertebral body measures 2.1 centimeter in the AP diameter and 2 centimeter in the height likely represent meningioma which was seen in the previous exam. There is sub centimeter lesion at the posterior aspect of T12 and in the midportion of L1 vertebral body suspicious for metastasis MARROW: Heterogeneous bone marrow signal. PARASPINAL SOFT TISSUES: There is soft tissue lesion noted in the right lung. CORD: Unremarkable thoracic cord. No volume loss, signal abnormality or syrinx. DISCS: Degenerative disc changes are noted. OTHER FINDINGS: None. IMPRESSION: 2 centimeter lesion at the T11 vertebral body with signal characteristics suspicious for benign hemangioma. Sub centimeter lesion at the posterior aspect of T12 and in the midportion of L1 suspicious for small metastasis. No evidence of cord compression.
--- NOTE | 2018-02-24 14:53 | CP.PCM.CON ---
History of Present Illness - History of Present Illness History of Present Illness: Neurology Consultation Note: Mrs. Murrieta is a 57-year-old woman, referred to me by Dr. Chris Mitchell, with a past medical history of metastatic breast cancer. MRI of the cervical spine partially imaged the cerebellar region and is concerning for possible brain mets as well. The patient is ataxic and has diplopia. Her speech is also ataxic. She denied headache, but admitted to nausea. Her last chemotherapy was 3 days ago. Review of Systems - Constitutional Constitutional: As Per HPI - EENT Eyes: As Per HPI Ears: absent: As Per HPI, Decreased Hearing, Ear Discharge, Ear Pain, Tinnitus, Abnormal Hearing, Disequilibrium, Dizziness, Other Nose/Mouth/Throat: absent: As Per HPI, Epistaxis, Nasal Congestion, Nasal Discharge, Nasal Obstruction, Nasal Trauma, Nose Pain, Post Nasal Drip, Sinus Pain, Sinus Pressure, Bleeding Gums, Change in Voice, Dental Pain, Dry Mouth, Dysphagia, Halitosis, Hoarsness, Lip Swelling, Mouth Lesions, Mouth Pain, Odynophagia, Sore Throat, Throat Swelling, Tongue Swelling, Facial Pain, Neck Pain, Neck Mass, Other - Breasts Breasts: As Per HPI - Cardiovascular Cardiovascular: absent: As Per HPI, Acrocyanosis, Chest Pain, Chest Pain at Rest, Chest Pain with Activity, Claudication, Diaphoresis, Dyspnea, Dyspnea on Exertion, Edema, Irregular Heart Rhythm, Pain Radiating to Arm/Neck/Jaw, Leg Edema, Leg Ulcers, Lightheadedness, Orthopnea, Palpitations, Paroxysmal Nocturnal Dyspnea, Pedal Edema, Radiating Pain, Rapid Heart Rate, Slow Heart Rate, Syncope, Other - Respiratory Respiratory: absent: As Per HPI, Cough, Dyspnea, Hemoptysis, Dyspnea on Exertion, Wheezing, Snoring, Stridor, Pain on Inspiration, Chest Congestion, Excessive Mucous Production, Change in Mucous Color, Pain with Coughing, Other - Gastrointestinal Gastrointestinal: absent: As Per HPI, Abdominal Pain, Belching, Bloating, Change in Bowel Habits, Change in Stool Character, Coffee Ground Emesis, Constipation, Cramping, Diarrhea, Dyspepsia, Dysphagia, Early Satiety, Excessive Flatus, Fecal Incontinence, Heartburn, Hematemesis, Hematochezia, Loose Stools, Melena, Nausea, Odynophagia, Temesmus, Vomiting, Other - Genitourinary Genitourinary: absent: As Per HPI, Change in Urinary Stream, Difficulty Urinating, Dysuria, Flank Pain, Hematuria, Pyuria, Nocturia, Urinary Inco ntinence, Urinary Frequency, Urinary Hesitance, Urinary Urgency, Voiding Freq/Small Amts, Freq UTI, Hx Renal/Bladder Calculi, Hx /Renal Surgery, Bladder Distension, Other - Musculoskeletal Musculoskeletal: As Per HPI - Integumentary Integumentary: absent: As Per HPI, Acne, Alopecia, Bleeding Lesions, Change in Hair, Change in Nails, Change in Pigmentation, Changing Lesions, Dry Skin, Erythema, Furuncle, Hirsutism, Lesions, New Lesions, Non-Healing Lesions, Photosensitivity, Pruritus, Rash, Skin Pain, Skin Ulcer, Sores, Striae, Swelling, Unusual Bruising, Wounds, Jaundice, Other - Neurological Neurological: As Per HPI - Psychiatric Psychiatric: absent: As Per HPI, Abnormal Sleep Pattern, Anhedonia, Anxiety, Auditory Hallucinations, Behavioral Changes, Change in Appetite, Change in Libido, Confusion, Depression, Difficulty Concentrating, Hallucinations, Homicidal Ideation, Hopelessness, Irritability, Memory Loss, Mood Swings, Panic Attacks, Paranoia, Suicidal Ideation, Visual Hallucinations, Tactile Hallucinations, Other - Endocrine Endocrine: absent: As Per HPI, Change in Body Appearance, Change in Libido, Cold Intolorance, Deepening of Voice, Excessive Sweating, Fatigue, Flushing, Heat Intolorance, Increase in Ring/Shoe/Hat Size, Palpitations, Polydipsia, Polyphagia, Polyuria, Other - Hematologic/Lymphatic Hematologic: absent: As Per HPI, Easy Bleeding, Easy Bruising, Lymphadenopathy, Other Past Patient History - Past Medical History & Family History Past Medical History?: Yes - Past Social History Smoking Status: Never Smoked - CARDIAC Hx Hypertension: Yes - PULMONARY Hx Asthma: Yes (CHILDHOOD NO MEDS) Hx Pneumonia: Yes (Childhood) - NEUROLOGICAL Hx Neurological Disorder: No - HEENT Hx HEENT Problems: No Other/Comment: GLASSES - RENAL Hx Chronic Kidney Disease: No - ENDOCRINE/METABOLIC Hx Endocrine Disorders: No - HEMATOLOGICAL/ONCOLOGICAL Hx Cancer: Yes (breast 2018) Other/Comment: in chemotherapy every wednesday - INTEGUMENTARY Hx Dermatological Problems: No - MUSCULOSKELETAL/RHEUMATOLOGICAL Hx Falls: Yes Hx Fractures: Yes (TOE/ARM NO SURGERY) - GENITOURINARY/GYNECOLOGICAL Hx Genitourinary Disorders: Yes Other/Comment: right breast cancer - PSYCHIATRIC Hx Substance Use: No - SURGICAL HISTORY Hx Surgeries: Yes Hx Section: Yes (one) Other/Comment: breast removal s/p breast ca july 2014. - ANESTHESIA Hx Anesthesia: Yes Hx Anesthesia Reactions: No Hx Malignant Hyperthermia: No Meds Allergies/Adverse Reactions: Allergies Allergy/AdvReac Type Severity Reaction Status Date / Time No Known Allergies Allergy Verified 02/23/18 14:57 - Medications Medications: Current Medications Enoxaparin Sodium (Lovenox) 40 mg SC DAILY [facility] Last Admin: 02/24/18 09:20 Dose: 40 mg Guaifenesin (Robitussin) 100 mg PO BID PRN PRN Reason: Cough Last Admin: 02/24/18 13:52 Dose: 100 mg Hydromorphone HCl (Dilaudid) 2 mg IVP Q6 PRN PRN Reason: Pain, severe (8-10) Last Admin: 02/23/18 22:22 Dose: 2 mg Moxifloxacin HCl (Avelox Iv 400mg/250ml Ns) 400 mg in 250 mls @ 167 mls/hr IVPB Q24H [facility]; Protocol Methylprednisolone (Solu-Medrol) 40 mg IVP Q8 [facility] Last Admin: 02/24/18 13:52 Dose: 40 mg Mupirocin (Bactroban Ointment) 0 gm TOP BID [facility] Last Admin: 02/24/18 09:21 Dose: 1 applic Pantoprazole Sodium (Protonix Ec Tab) 40 mg PO DAILY [facility] Last Admin: 02/24/18 09:20 Dose: 40 mg Potassium Chloride (K-Dur 20 Meq Er Tab) 40 meq PO ONCE ONE Stop: 02/24/18 18:01 Physical Exam - Constitutional Appears: Well - Head Exam Head Exam: ATRAUMATIC, NORMAL INSPECTION, NORMOCEPHALIC - Eye Exam Eye Exam: EOMI, Normal appearance, PERRL Pupil Exam: NORMAL ACCOMODATION, PERRL - ENT Exam ENT Exam: Mucous Membranes Moist, Normal Exam - Neck Exam Neck exam: Positive for: Normal Inspection - Respiratory Exam Respiratory Exam: Clear to Auscultation Bilateral, NORMAL BREATHING PATTERN - Cardiovascular Exam Cardiovascular Exam: REGULAR RHYTHM - GI/Abdominal Exam GI & Abdominal Exam: Normal Bowel Sounds, Soft. absent: Tenderness - Extremities Exam Extremities exam: Positive for: normal inspection - Back Exam Back exam: NORMAL INSPECTION - Neurological Exam Neurological exam: Alert, CN II-XII Intact, Oriented x3 Additional comments: Bilateral lower extremity weakness and ataxia. Sensation is diminished on the right as compared with the left in legs and arms, but not face. Reflexes are brisk bilaterally. Gait could not be assessed due to the patients condition and weakness. - Psychiatric Exam Psychiatric exam: Normal Affect, Normal Mood - Skin Skin Exam: Dry, Intact, Normal Color, Warm Results - Vital Signs Recent Vital Signs: Last Vital Signs Temp 97.8 F 02/24/18 07:00 Pulse 90 02/24/18 07:00 Resp 20 02/24/18 07:00 BP 139/82 02/24/18 07:00 Pulse Ox 98 02/24/18 07:00 - Labs Result Diagrams: 02/24/18 11:15 02/24/18 11:15 Labs: Laboratory Results - last 24 hr 02/23/18 02/23/18 02/23/18 15:32 15:32 15:32 WBC 0.4 L* D RBC 3.37 L Hgb 8.2 L D Hct 25.1 L MCV 74.6 L D MCH 24.4 L MCHC 32.7 L RDW 16.9 H Plt Count 224 MPV 7.7 Neut % (Auto) 32.3 L Lymph % (Auto) 62.6 H [place] % (Auto) 2.5 Eos % (Auto) 0.3 Baso % (Auto) 2.3 H Neut # (Auto) 0.1 L Lymph # (Auto) 0.2 L [place] # (Auto) 0.0 Eos # (Auto) 0.0 Baso # (Auto) 0.0 Differential Comment Sodium 135 Potassium 2.7 L Chloride 99 Carbon Dioxide 30 Anion Gap 10 BUN 13 Creatinine 0.5 L Est GFR ( Amer) > 60 Est GFR (Non-Af Amer) > 60 Random Glucose 115 H Calcium 7.8 L Phosphorus Magnesium Total Bilirubin 3.3 H AST 32 ALT 29 Alkaline Phosphatase 71 Total Protein 5.8 L Albumin 3.1 L D Globulin 2.7 Albumin/Globulin Ratio 1.1 Urine Color Urine Clarity Urine pH Ur Specific [place] Urine Protein Urine Glucose (UA) Urine Ketones Urine Blood Urine Nitrate Urine Bilirubin Urine Urobilinogen Ur Leukocyte Esterase Urine WBC (Auto) Urine RBC (Auto) Urine Bacteria Influenza Typ A,B (EIA) Negative for flu a/b 02/23/18 02/24/18 02/24/18 15:43 11:15 11:15 WBC 0.1 L* D RBC 3.27 L Hgb 8.0 L Hct 24.2 L MCV 73.9 L MCH 24.5 L MCHC 33.2 RDW 17.0 H Plt Count 197 MPV 8.0 Neut % (Auto) 32.5 L Lymph % (Auto) 56.4 H [place] % (Auto) 11.1 H Eos % (Auto) 0.0 Baso % (Auto) 0.0 Neut # (Auto) 0.0 L Lymph # (Auto) 0.1 L [place] # (Auto) 0.0 Eos # (Auto) 0.0 Baso # (Auto) 0.0 Differential Comment Sodium 136 Potassium 3.3 L Chloride 99 Carbon Dioxide 30 Anion Gap 11 BUN 12 Creatinine 0.4 L Est GFR ( Amer) > 60 Est GFR (Non-Af Amer) > 60 Random Glucose 160 H Calcium 7.7 L Phosphorus 1.3 L Magnesium 1.8 Total Bilirubin 2.0 H AST 24 ALT 29 Alkaline Phosphatase 69 Total Protein 5.9 L Albumin 3.0 L Globulin 2.8 Albumin/Globulin Ratio 1.1 Urine Color Tammy Urine Clarity Clear Urine pH 6.0 Ur Specific [place] 1.024 Urine Protein 2+ H Urine Glucose (UA) Normal Urine Ketones Negative Urine Blood 2+ H Urine Nitrate Negative Urine Bilirubin Negative Urine Urobilinogen 2.0 H Ur Leukocyte Esterase Neg Urine WBC (Auto) 9 H Urine RBC (Auto) 11 H Urine Bacteria Rare Influenza Typ A,B (EIA) Assessment & Plan (1) Frequent falls Assessment and Plan: This is likely due to metastatic disease to the brain and also the fact that the patient has spinal mets and generalized weakness. I ordered an MRI of the brain with and without contrast to more fully investigate the masses and determine the next steps in management. I recommend neurosurgical evaluation as well. The patient is already on 40 mg of Solu-Medrol Q8, and this may help since it does appear that there is significant T2 signal and vasogenic edema. Thank you for the consultation. Status: Acute
[2018-02-24] MEDS: Moxifloxacin IV 400mg/250ml NS 400 MG/250 ML BAG IVPB SCH (18:44)
--- NOTE | 2018-02-24 19:42 | CP.PCM.PN ---
Subjective - Date & Time of Evaluation Date of Evaluation: 02/24/18 Time of Evaluation: 10:30 - Subjective Subjective: clinically same Objective - Vital Signs/Intake and Output Vital Signs (last 24 hours): Temp Pulse Resp BP Pulse Ox 97.9 F 94 H 20 129/82 97 02/24/18 16:00 02/24/18 16:00 02/24/18 07:00 02/24/18 16:00 02/24/18 16:00 - Medications Medications: Current Medications Enoxaparin Sodium (Lovenox) 40 mg SC DAILY [facility] Last Admin: 02/24/18 09:20 Dose: 40 mg Guaifenesin (Robitussin) 100 mg PO BID PRN PRN Reason: Cough Last Admin: 02/24/18 13:52 Dose: 100 mg Hydromorphone HCl (Dilaudid) 2 mg IVP Q6 PRN PRN Reason: Pain, severe (8-10) Last Admin: 02/24/18 16:24 Dose: 2 mg Moxifloxacin HCl (Avelox Iv 400mg/250ml Ns) 400 mg in 250 mls @ 167 mls/hr IVPB Q24H [facility]; Protocol Last Admin: 02/24/18 18:44 Dose: 167 mls/hr Methylprednisolone (Solu-Medrol) 40 mg IVP Q8 [facility] Last Admin: 02/24/18 13:52 Dose: 40 mg Mupirocin (Bactroban Ointment) 0 gm TOP BID [facility] Last Admin: 02/24/18 18:50 Dose: 1 applic Pantoprazole Sodium (Protonix Ec Tab) 40 mg PO DAILY [facility] Last Admin: 02/24/18 09:20 Dose: 40 mg - Labs Labs: 02/24/18 11:15 02/24/18 11:15 - Constitutional Appears: Well - Head Exam Head Exam: ATRAUMATIC, NORMAL INSPECTION, NORMOCEPHALIC - Eye Exam Eye Exam: EOMI, Normal appearance, PERRL Pupil Exam: NORMAL ACCOMODATION, PERRL - ENT Exam ENT Exam: Mucous Membranes Moist, Normal Exam - Neck Exam Neck Exam: Full ROM, Normal Inspection. absent: Lymphadenopathy - Respiratory Exam Respiratory Exam: Decreased Breath Sounds - Cardiovascular Exam Cardiovascular Exam: REGULAR RHYTHM, +S1, +S2 - GI/Abdominal Exam GI & Abdominal Exam: Soft, Diminished Bowel Sounds - Rectal Exam Rectal Exam: Deferred
[2018-02-25] MEDS: MethylPREDNISolone 40 mg Vial IVP SCH ×3 (05:22→21:19)
[2018-02-25 08:23] LABS: HEMOGLOBIN 8.3 g/dL (11.0-16.0); LYMPH # 0.1 K/uL (1.0-4.3)
[2018-02-25 08:31] LABS: EOS % 2.2 % (0.0-4.0); LYMPH % 72.6 % (20.0-40.0); MEAN CORPUSCULAR HEMOGLOBIN 24.4 pg (27.0-31.0); MEAN PLATELET VOLUME 8.1 fL (7.2-11.7); MONO % 6.2 % (0.0-10.0); NRBC % 0.5 % (0.0-2.0); RBC 3.42 Mil/uL (3.80-5.20); RED CELL DISTRIBUTION WIDTH 17.4 % (11.5-14.5)
[2018-02-25 08:35] LABS: ALB/GLOB RATIO 1.1 (1.0-2.1); ALBUMIN 3.3 g/dL (3.5-5.0); ALT/SGPT 21 U/L (9-52); AST/SGOT 22 U/L (14-36); BLOOD UREA NITROGEN 14 mg/dL (7-17); GFR NON-AFRICAN AMERICAN > 60; WHITE BLOOD COUNT 0.1 K/uL (4.8-10.8)
--- NOTE | 2018-02-25 10:07 | PCM.FALL ---
Post Fall Progress Note - Post Fall Fall Date: 02/25/18 Description of Fall: Patient was in MRI trailer and fell from stretcher to floor, approx3 feet. Patient was leaning on her side and rolled off. - Post Fall Exam Vital Sign: Temp Pulse Resp BP Pulse Ox 97.9 F 104 H 20 137/87 98 02/25/18 08:00 02/25/18 08:00 02/25/18 08:00 02/25/18 08:00 02/25/18 08:00 Skull Exam: Negative for: Scalp wound, Scalp hematoma, Scalp depression, Ridge in skull Eye Exam: Positive for: Pupils equal, Pupils reactive Ear Exam: Negative for: Discharge, Bleeding Nose Exam: Negative for: Discharge, Bleeding Skin Exam: Negative for: Lacerations, Grazes, Bruising Mouth Exam: Negative for: Tongue bitten, Teeth dislodge Neck Exam: Positive for: Tenderness, Weakness Spinal Exam: Positive for: Weakness. Negative for: Tenderness Chest Exam: Negative for: Difficulty breathing Abdomen Exam: Negative for: Tenderness Pelvic Exam: Negative for: Tenderness Arm Exam: Negative for: Deformity Leg Exam: Negative for: Deformity Other pertinent findings: Patient is complaining of head and neck pain. No LOC. A&Ox4. No loss of bowel or bladder control. No FNDs. Impression/Plan: - Neck brace placed before patient moved - Stat CT head, c-spine - Stat b/l shoulder XRs - Will hold off on MRI until patient stable/acute injuries from fall ruled out
--- NOTE | 2018-02-25 10:34 | PCM.RRT ---
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 support service tech) - IV IV Inserted during [employer]?: No - Respiratory [employer] Delivery Method: Room Air - Medication Medications Administered During [employer]: none - Diagnostic Test Ordered CT Scan: Yes (head, spine) Other Diagnostic Test Ordered: XR shoulders, hips, sacrum/coccyx - [place] Coma Scale Coma Scale Eye Opening: Spontaneous Coma Scale Motor: Obeys Commands Movement Coma Scale Verbal: Oriented Coma Scale Total: 15 - Time [employer] Ended Time [employer] Ended: 10:20 - Recommendations 5) [employer] Level of Care Recommendations: Remain in current setting Notifications: Attending Physician (Lilli Mitchell) I.Reason for [employer] - A) Acute Change in Patient: Subjective: Patient was being transported to MRI from 5th floor for lumbar MRI. Patient was admitted Wednesday for URI symptoms. She also reports frequent falls, most recent on Wednesday. Of note, patient has breast CA with mets to bone, possibly brain as well and chronic pain. Patient was transferred from bed to stretcher in order to go on electrical lift up to MRI trailer. Patient was leaning on her side on the stretcher. After the lift reached the trailer, the stretcher was rolled onto the trailer, and the patient rolled off, failing approx 3 feet to the ground, which was the lift platform. Lift platform was lowered to ground level. Patient remained on ground, in R lateral decubitus position, covered in blankets. Patient complained of head and neck pain, which is new. She also complained of back and stomach pain, which she states was present prior to fall. She denies LOC or loss of bowel or bladder control. She is alert and oriented x4. No focal neurological deficits. No lacerations or bleeding visible. Patient remained on ground and was instructed not to move her neck/head. C-collar was obtained from the ED and placed on patient. She was lifted back on the bed and transported to CT. CT head, C-spine, T-spine, L-spine ordered stat XR b/l shoulders, hip, and sacrum/coccyx ordered stat Attending Lilli Mitchell informed via cell phone. No further instructions/orders given. - Neurological Status (Select all that apply): Alert, Responsive, Oriented, Verbal, Follows Commands - Respiratory Oxygen Delivery Method: Room Air - Constitutional Additional Comments: shivering - Head Head Exam: ATRAUMATIC, NORMAL INSPECTION - Eyes Eye Exam: EOMI, Normal appearance, PERRL - Respiratory Exam Respiratory Exam: Clear to Ausculation Bilateral, NORMAL BREATHING PATTERN. absent: Respiratory Distress - Cardiovascular Exam Cardiovascular Exam: REGULAR RHYTHM, +S1, +S2 - GI/Abdominal Exam GI & Abdominal Exam: Soft, Tenderness (present prior to fall) - Neurological Exam Neurological Exam: Alert, Awake, Oriented x3 - Extremities Exam Extremities Exam: Full ROM Additional comments: neck, shoulder pain chronic back pain Plan - Assessment of Findings&Treatment Plan - Neck brace placed - Stat CT and XRs - Hold off on MRI until acute injuries ruled out - AttendingLilli, informed - Patient's nurse from 5th floor present - Patient will return to same room pending imaging results - Further care as per attending and consultants <Nannette Pizano V - Last Filed: 02/27/18 21:48> Attending/Attestation - Attestation I have personally seen and examined this patient.: Yes I have fully participated in the care of the patient.: Yes I have reviewed all pertinent clinical information, including history, physical exam and plan: Yes Notes (Text): This is late computer entry for 02/25/18. patient seen, examined at bedside. [employer]; called for s/p fall witness by ict help desk technician. advised to call code star. Noted. Patient was being transported to MRI from 5th floor for lumbar MRI. Patient was admitted Wednesday for URI symptoms and status post fall. She also reports frequent falls, most recent on Wednesday. Of note, patient has breast CA with mets to bone, possibly brain as well and chronic pain. Patient was transferred from bed to stretcher in order to go on electrical lift up to MRI trailer. Patient was leaning on her side on the stretcher. After the lift reached the trailer, the stretcher was rolled onto the trailer, and the patient rolled off, failing approx 3 feet to the ground, which was the lift platform. Lift platform was lowered to ground level. Patient remained on ground, in R lateral decubitus position, covered in blankets. Patient complained of head and neck pain, which is new. She also complained of back and stomach pain, which she states was present prior to fall. She denies LOC or loss of bowel or bladder control. She is alert and oriented x3. No focal neurological deficits. No lacerations or bleeding visible. Patient remained on ground and was instructed not to move her neck/head. C-collar was obtained from the ED and placed on patient. She was lifted back on the bed and transported to CT. CT head, C-spine, T-spine, L-spine ordered stat XR b/l shoulders, hip, and sacrum/coccyx ordered stat Attending Lilli Mitchell informed via cell phone. Spoke with nursing casino floor supervisor and nurse sugar plantation manager regarding event since patient was admitted as a status post fall.
--- NOTE | 2018-02-25 10:57 | CT ---
Date of service: 02/25/2018 PROCEDURE: CT HEAD WITHOUT CONTRAST. HISTORY: fall COMPARISON: Comparison is made with 11/07/2016 TECHNIQUE: Axial computed tomography images were obtained through the head/brain without intravenous contrast. Radiation dose: Total exam DLP = 1416.33 mGy-cm. This CT exam was performed using one or more of the following dose reduction techniques: Automated exposure control, adjustment of the mA and/or kV according to patient size, and/or use of iterative reconstruction technique. FINDINGS: HEMORRHAGE: No intracranial hemorrhage. BRAIN: There is interval appearance of foci of hypodensity at right perisylvian fissure, right frontal and left cerebellum since the previous study of uncertain etiology. The possibility of underline lesion or neoplasm is not totally excluded. Mild atrophy and chronic microvascular white matter ischemic changes are again noted. VENTRICLES: Unremarkable. No hydrocephalus. CALVARIUM: Unremarkable. PARANASAL SINUSES: Mild mucosal thickening in the maxillary and ethmoid sinuses is noted. MASTOID AIR CELLS: Unremarkable as visualized. No inflammatory changes. OTHER FINDINGS: None. IMPRESSION: No evidence of acute intracranial hemorrhage. Interval appearance of new foci of hypodensity in the right frontal, parietal lobes and left cerebellum since the previous study. The possibility of brain lesion should be excluded. If clinically warranted further assessment by MRI is suggested. Mild sinuses mucosal disease.
--- NOTE | 2018-02-25 10:59 | CT ---
Date of service: 02/25/2018 PROCEDURE: CT Cervical Spine without contrast HISTORY: Status post fall COMPARISON: None available. TECHNIQUE: Axial computed tomography images were obtained of the cervical spine without the use of intravenous contrast. Coronal and sagittal reformatted images were created and reviewed. Radiation dose: Total exam DLP = 618.44 mGy-cm. This CT exam was performed using one or more of the following dose reduction techniques: Automated exposure control, adjustment of the mA and/or kV according to patient size, and/or use of iterative reconstruction technique. FINDINGS: VERTEBRAE: No evidence of acute displaced-compression fracture nor retropulsed fragments. Vertebral bodies exhibit relatively normal stature. Vertebral bodies and facets normally aligned. DISCS/SPINAL CANAL/NEURAL FORAMINA: Mild multilevel degenerative spondylosis. At the C2-C3 level, there is mild posterior disc space narrowing. No disc herniation or significant disc bulge. The overall central bony canal exit foramina appear adequate. Similar changes seen at the C3-C4 level with minor posterior disc space narrowing. No disc herniation or significant disc bulge however there does appear to be some minimal overgrowth of the uncovertebral and facet joints. The central bony canal adequate. Exit foramina are marginal to slightly narrowed on the left and marginal to adequate on the right. At the C4-C5 level, minor posterior disc space narrowing. Small central and bilateral disc ridge complex slightly larger on the right than left appears to compress the ventral surface of the thecal sac and cord. Central canal is slightly narrowed at this level. Moderate facet arthropathy with mild degenerative squaring of the uncovertebral joints. Exit foramina appear narrowed bilaterally. At the C5-C6 level, there is disc space narrowing with endplate air irregularity/eburnation small irregular asymmetric osteophytic ridge slightly larger on the left than right and contiguous with slightly overgrown uncovertebral joints. Facets also mildly hypertrophic. Exit foramina are narrowed bilaterally left greater than right. At the C6-C7 level, there is disc space narrowing with endplate irregularity/eburnation. Small osteophytic ridge disc complex larger on the left than right which appears to be contiguous with calcification of the posterior longitudinal ligament just to the left of midline as it extends superiorly dorsal to the left superior corner of the C5 segment. Changes do result in compressive effects on the ventral surface of the thecal sac and cord more so on the left side. Exit foramina are stenotic bilaterally due to overgrown uncovertebral facet joints. PARASPINAL SOFT TISSUES: Unremarkable. OTHER FINDINGS: Minor biapical pleural thickening right greater than left. No evidence of pneumothorax. IMPRESSION: No acute fractures.
--- NOTE | 2018-02-25 11:11 | CT ---
Date of service: 02/25/2018 PROCEDURE: CT Thoracic Spine without contrast HISTORY: fall History of metastatic breast cancer. COMPARISON: Comparison is made to the previous CT of the chest dated 07/06/2017 previous MRI of the thoracic spine dated 02/23/2018. TECHNIQUE: Axial computed tomography images were obtained of the thoracic spine without intravenous contrast. Coronal and sagittal reformatted images were created and reviewed. 3D reformatted images of the thoracic spine were also obtained. Radiation dose: Total exam DLP = 1226.22 mGy-cm. This CT exam was performed using one or more of the following dose reduction techniques: Automated exposure control, adjustment of the mA and/or kV according to patient size, and/or use of iterative reconstruction technique. FINDINGS: VERTEBRAE: There is no evidence of compression deformity or acute displaced fracture. There are multiple small lytic bony lesion is seen. The possibility of metastasis is not totally excluded. There is lytic bony lesion at T11 vertebral body likely represent hemangioma. DISCS/SPINAL CANAL/NEURAL FORAMINA: Within the limits of the CT technique, no disc herniation seen. No central canal or neural foraminal stenosis.. [id number] diffuse endplate degenerative changes noted. Anterior osteophyte formation are seen. PARASPINAL SOFT TISSUES: Multiple lung nodules are noted suspicious for metastasis. There is a trace right pleural effusion.. OTHER FINDINGS: Unremarkable. IMPRESSION: No evidence of acute fracture or subluxation. Diffuse heterogeneous attenuation of the osseous structure with possible small lytic bony lesion. The possibility of osseous metastasis should be considered. Lytic bony lesion at T11 vertebral body likely hemangioma. Lung nodules suspicious for metastasis.
--- NOTE | 2018-02-25 11:18 | CT ---
Date of service: 02/25/2018 PROCEDURE: CT Lumbar Spine without contrast HISTORY: fall COMPARISON: None available. TECHNIQUE: Axial computed tomography images were obtained of the lumbar spine without the use of intravenous contrast. Coronal and sagittal reformatted images were created and reviewed. Radiation dose: Total exam DLP = 1979.28 mGy-cm. This CT exam was performed using one or more of the following dose reduction techniques: Automated exposure control, adjustment of the mA and/or kV according to patient size, and/or use of iterative reconstruction technique. FINDINGS: VERTEBRAE: No evidence of acute compression fractures no retropulsed fragments. Vertebral bodies exhibit normal stature. Minimal anterior subluxation of the L3 over L4 segment... Vertebral bodies otherwise exhibit normal alignment. Facets normally aligned. Note made of slight sacralization of the L5 segment DISCS/SPINAL CANAL/NEURAL FORAMINA: Multilevel degenerative spondylosis. L1-2: There is adequate disc height. No disc herniation or significant disc bulge. Facets are slightly hypertrophic. The overall central bony canal and exit foramina adequate. L2-3: There is relatively adequate disc height. Chronic appearing Schmorl's node changes are present at this level as well. Minimal broad-based disc bulge ridge complex extends into the proximal inferior margins of both exit foramina more so on the right. The facets are hypertrophic and ligamentum flavum buckled. Changes result in moderate bilateral lateral recess and central canal stenosis. The proximal exit foramina are marginal to adequate on the left and marginal to slightly narrowed on the right note made of sclerotic focus within the posterior left parasagittal margin of the L2 segment consistent with bone island or osteoma. L3-4: There is slight uncovering of the posterior superior surface of the disc due to the aforementioned very slight anterior subluxation of L 3 over L4. Small to medium-sized left parasagittal chronic appearing Schmorl's node present. Small to medium-sized broad-based disc bulge extends slightly into the proximal inferior margins of both exit foramina. The changes result in moderate to fairly significant bilateral lateral recess and central canal stenosis. The facets are hypertrophic with mild slight buckling of the ligamentum flavum.. The exit foramina appear mildly narrowed on the left side and marginal to adequate on the right L4-5: There is adequate disc height. Small on elliptical shaped calcifications seen along the left posterolateral margin of the annulus.. . The facet joints are quite hypertrophic at this level right greater than left. The overall central bony canal appears adequate so far as can be seen. Exit foramina are also adequate L5-S1: No disc herniation or significant disc bulge. The overall central bony canal and exit foramina adequate. Facet joints are hypertrophic.. Central canal is marginal with mild right sided foraminal narrowing.. PARASPINAL SOFT TISSUES: Unremarkable. OTHER FINDINGS: Mild bladder wall thickening likely due to incomplete distention however possibility of a cystitis not excluded. In situ IVC filter. IMPRESSION: No acute fractures. Mild to moderate multilevel degenerative spondylosis most notably affecting the L3-L4 and L2-L3 levels where there are changes of bilateral lateral recess and central canal stenosis as above
--- NOTE | 2018-02-25 12:19 | RAD ---
Date of service: 02/25/2018 PROCEDURE: Pelvis bilateral hips dated 02/25/2018. HISTORY: fall COMPARISON: Comparison made with concurrent radiographs of the sacrum and CT scan of the lumbosacral spine TECHNIQUE: AP view of the pelvis and coned-down frontal views of the right and left hips performed. FINDINGS: No evidence of acute displaced fracture of the pelvis or hips seen. Both femoral heads are appropriately located within the respective acetabula. There is a nonspecific rounded lucent lesion in the left femoral head that measures approximately 7 mm.. SI joints appear intact. Degenerative spondylosis lumbosacral spine.. In situ external of urinary catheter present. IMPRESSION: No evidence of acute displaced fracture nor dislocation. Nonspecific rounded small lucent lesion left femoral head. Consider followup of nuclear medicine bone scan if metastatic disease is suspected clinically.
--- NOTE | 2018-02-25 12:23 | RAD ---
Date of service: 02/25/2018 PROCEDURE: Radiographs of the Sacrum and Coccyx HISTORY: FALL COMPARISON: Correlation made with concurrent CT scan of the lumbosacral spine. TECHNIQUE: Frontal and lateral views of the sacrum and coccyx FINDINGS: BONES: Sacrum and coccyx unremarkable.. Previously noted sclerotic lesion in the left sacral ala is poorly delineated on this exam. SACROILIAC JOINTS: SI joints appear intact. OTHER FINDINGS: None. IMPRESSION: No evidence of acute fractures. Previously noted sclerotic lesion left sacral al is poorly delineated on this study. Please refer to concurrent CT scan of the lumbosacral spine.
[2018-02-25] MEDS: Enoxaparin 40 mg Syringe SC SCH (13:13)
[2018-02-25] MEDS: Pantoprazole 40 mg EC Tab PO SCH (13:13)
[2018-02-25] MEDS ORDERED: Potassium Chloride 20 mEq ER Tab PO ONE ×2 (13:28→18:00)
--- NOTE | 2018-02-25 14:36 | VASCLAB ---
Date of service: 02/23/2018 PROCEDURE: Right Upper Extremity Venous Duplex Exam HISTORY: edema PRIORS: None. TECHNIQUE: Right upper extremity, internal jugular, subclavian, axillary, brachial, ulnar, radial, basilic and upper cephalic veins were evaluated. Flow was assessed with color Doppler, compressibility, assessment of phasic flow and augmentation response. Report prepared by KISHA Pinzon, RVT FINDINGS: RIGHT: 1. Internal Jugular: 1.1. Compressibility - Fully compressible: Thrombus - None : Flow - Phasic: Augmentation -Normal: Reflux - None. 2. Subclavian: 2.1. Compressibility - Fully compressible: Thrombus - None : Flow - Phasic: Augmentation -Normal: Reflux - None. 3. Axillary: 3.1. Compressibility - Fully compressible: Thrombus - None : Flow - Phasic: Augmentation -Normal: Reflux - None. 4. Brachial: 4.1. Compressibility - Fully compressible: Thrombus - None: Flow - Phasic: Augmentation -Normal: Reflux - None. 5. Ulnar: 5.1. Compressibility - Fully compressible: Thrombus - None: Flow - Phasic: Augmentation -Normal: Reflux - None. 6. Radial: 6.1. Compressibility - Fully compressible: Thrombus - None: Flow - Phasic: Augmentation - Normal: Reflux - None. 7. Cephalic: 7.1. Compressibility - Fully compressible: Thrombus - None: Flow - : Augmentation -: Reflux - . 8. Basilic: 8.1. Compressibility - Fully compressible: Thrombus - None: Flow - : Augmentation -: Reflux - . OTHER FINDINGS: Right: None. IMPRESSION: Right: No evidence of vein thrombosis of the right upper extremity with excellent venous flow. Normal valve function noted of the right side. Normal venous flow noted in the left internal jugular and left subclavian veins.
--- NOTE | 2018-02-25 14:37 | VASCLAB ---
Date of service: 02/23/2018 PROCEDURE: Lower Extremity Venous Duplex Exam. HISTORY: edema PRIORS: None. TECHNIQUE: Bilateral common femoral, femoral, popliteal and posterior tibial, peroneal and great saphenous veins were evaluated. Flow was assessed with color Doppler, compressibility, assessment of phasic flow and augmentation response. Report prepared by KISHA Pinzon, RVT FINDINGS: RIGHT: 1. Common Femoral Vein: 1.1. Compressibility - Fully compressible: Thrombus - None : Flow - Phasic: Augmentation -Normal: Reflux - None. 2. Femoral Vein: 2.1. Compressibility - Fully compressible: Thrombus - None : Flow - Phasic: Augmentation -Normal: Reflux - None. 3. Popliteal Vein: 3.1. Compressibility - Fully compressible: Thrombus - None : Flow - Phasic: Augmentation -Normal: Reflux - None. 4. Posterior Tibial Vein: 4.1. Compressibility - Fully compressible: Thrombus - None: Flow - Phasic: Augmentation -Normal: Reflux - None. 5. Peroneal Vein: 5.1. Compressibility - : Thrombus - : Flow - : Augmentation -: Reflux - . 6. Great Saphenous Vein: 6.1. Compressibility - Fully compressible: Thrombus - None: Flow - Phasic: Augmentation - Normal: Reflux - None. LEFT: 1. Common Femoral Vein: 1.1. Compressibility - Fully compressible: Thrombus - None: Flow - Phasic: Augmentation -Normal: Reflux - None. 2. Femoral Vein: 2.1. Compressibility - Fully compressible: Thrombus - None: Flow - Phasic: Augmentation -Normal: Reflux - None. 3. Popliteal Vein: 3.1. Compressibility - Fully compressible: Thrombus - None : Flow - Phasic: Augmentation -Normal: Reflux - None. 4. Posterior Tibial Vein: 4.1. Compressibility - : Thrombus - : Flow - : Augmentation -: Reflux - . 5. Peroneal Vein: 5.1. Compressibility - : Thrombus - : Flow - : Augmentation -: Reflux - . 6. Great Saphenous Vein: 6.1. Compressibility - Fully compressible: Thrombus - None: Flow - Phasic: Augmentation - Normal: Reflux - None. OTHER FINDINGS: Right: Intima wall thickening of the right popliteal vein. Left: None significant. IMPRESSION: Right: No evidence of deep or superficial vein thrombosis of the right lower extremity. Normal valve function noted of the right side. Left: No evidence of deep or superficial vein thrombosis of the left lower extremity. Normal valve function noted of the left side.
--- NOTE | 2018-02-25 16:06 | CP.PCM.CON ---
History of Present Illness - History of Present Illness History of Present Illness: 57 year old female with a history of DVT, stage IV breast cancer (triple negative) with lung, bone, and soft tissue metastasis, pathologic fracture s/p orthopedic fixation, palliative XRT, on chemotherapy, admitted s/p fall and left leg weakness. The patient notes to progressive weakness in her legs L>R. She had to go to the bathroom and fell on the way hitting her side and head. A CT of the head was negative for acute hemorrhage but did reveal hypodensities. In regards to her breast cancer, she was initially diagnosed with stage III multicentric right breast cancer (ER/WI positive HER2, and triple negative) s/p neoadjuvant chemotherapy, mastectomy and axillary LN dissection (ypT1b N1a) 07/2014, radiation, and hormonal therapy. In 07/2017 she underwent a lung lesion biopsy which confirmed recurrent triple negative breast cancer. She has been receiving Abraxane chemotherapy. Past medical history: Breast cancer Past surgical history: Right mastectomy with axillar LN dissection, left reductive mammoplasy Family history: Brother had renal cell carcinoma Social history: Denies tobacco, alcohol, and illicit drug use. Allergies: NKA Review of systems: All remaining review of systems including HEENT, cardiov ascular, respiratory, gastrointestinal, genitourinary, musculoskeletal, dermatologic, neurologic, and psychiatric are negative unless mentioned in the HPI. Past Patient History - Past Medical History & Family History Past Medical History?: Yes - Past Social History Smoking Status: Never Smoked - CARDIAC Hx Hypertension: Yes - PULMONARY Hx Asthma: Yes (CHILDHOOD NO MEDS) Hx Pneumonia: Yes (Childhood) - NEUROLOGICAL Hx Neurological Disorder: No - HEENT Hx HEENT Problems: No Other/Comment: GLASSES - RENAL Hx Chronic Kidney Disease: No - ENDOCRINE/METABOLIC Hx Endocrine Disorders: No - HEMATOLOGICAL/ONCOLOGICAL Hx Cancer: Yes (breast 2018) Other/Comment: in chemotherapy every wednesday - INTEGUMENTARY Hx Dermatological Problems: No - MUSCULOSKELETAL/RHEUMATOLOGICAL Hx Falls: Yes Hx Fractures: Yes (TOE/ARM NO SURGERY) - GENITOURINARY/GYNECOLOGICAL Hx Genitourinary Disorders: Yes Other/Comment: right breast cancer - PSYCHIATRIC Hx Substance Use: No - SURGICAL HISTORY Hx Surgeries: Yes Hx Section: Yes (one) Other/Comment: breast removal s/p breast ca july 2014. - ANESTHESIA Hx Anesthesia: Yes Hx Anesthesia Reactions: No Hx Malignant Hyperthermia: No Meds Allergies/Adverse Reactions: Allergies Allergy/AdvReac Type Severity Reaction Status Date / Time No Known Allergies Allergy Verified 02/23/18 14:57 - Medications Medications: Current Medications Enoxaparin Sodium (Lovenox) 40 mg SC DAILY [facility] Last Admin: 02/25/18 13:13 Dose: 40 mg Guaifenesin (Robitussin) 100 mg PO BID PRN PRN Reason: Cough Last Admin: 02/24/18 13:52 Dose: 100 mg Hydromorphone HCl (Dilaudid) 2 mg IVP Q6 PRN PRN Reason: Pain, severe (8-10) Last Admin: 02/25/18 15:55 Dose: 2 mg Moxifloxacin HCl (Avelox Iv 400mg/250ml Ns) 400 mg in 250 mls @ 167 mls/hr IVPB Q24H [facility]; Protocol Last Admin: 02/24/18 18:44 Dose: 167 mls/hr Methylprednisolone (Solu-Medrol) 40 mg IVP Q8 [facility] Last Admin: 02/25/18 13:13 Dose: 40 mg Mupirocin (Bactroban Ointment) 0 gm TOP BID [facility] Last Admin: 02/25/18 13:13 Dose: 1 applic Pantoprazole Sodium (Protonix Ec Tab) 40 mg PO DAILY [facility] Last Admin: 02/25/18 13:13 Dose: 40 mg Saliva Substitute (First Magic Mouthwash) 5 ml PO Q4H PRN PRN Reason: MOUTH SORE Physical Exam - Head Exam Head Exam: ATRAUMATIC - Eye Exam Eye Exam: Normal appearance - ENT Exam ENT Exam: Mucous Membranes Dry - Respiratory Exam Respiratory Exam: NORMAL BREATHING PATTERN - Cardiovascular Exam Cardiovascular Exam: +S1, +S2 - GI/Abdominal Exam GI & Abdominal Exam: Normal Bowel Sounds - Extremities Exam Extremities exam: Positive for: pedal edema - Neurological Exam Neurological exam: Oriented x3 - Psychiatric Exam Psychiatric exam: Normal Affect, Normal Mood - Skin Skin Exam: Warm Results - Vital Signs Recent Vital Signs: Last Vital Signs Temp 97.9 F 02/25/18 11:30 Pulse 106 H 02/25/18 11:30 Resp 20 02/25/18 11:30 BP 135/61 02/25/18 11:30 Pulse Ox 98 11/23/18 11:30 - Labs Result Diagrams: 02/28/18 07:56 02/28/18 07:56 Labs: Laboratory Results - last 24 hr 02/25/18 02/25/18 08:08 08:08 WBC 0.1 L* RBC 3.42 L Hgb 8.3 L Hct 25.3 L MCV 74.0 L MCH 24.4 L MCHC 33.0 RDW 17.4 H Plt Count 201 MPV 8.1 Neut % (Auto) 19.0 L Lymph % (Auto) 72.6 H [place] % (Auto) 6.2 Eos % (Auto) 2.2 Baso % (Auto) 0.0 Neut # (Auto) 0.0 L Lymph # (Auto) 0.1 L [place] # (Auto) 0.0 Eos # (Auto) 0.0 Baso # (Auto) 0.0 Total Counted Cancelled Neutrophils % (Manual) Cancelled Band Neutrophils % Cancelled Lymphocytes % (Manual) Cancelled Reactive Lymphs % Cancelled Monocytes % (Manual) Cancelled Eosinophils % (Manual) Cancelled Basophils % (Manual) Cancelled Metamyelocytes % Cancelled Myelocytes % Cancelled Promyelocytes % Cancelled Blast Cells % Cancelled Plasma Cell % (Manual) Cancelled Nucleated RBC % Cancelled Hypersegmented Polys Cancelled Smudge Cells Cancelled Toxic Granulation Cancelled Dohle Bodies Cancelled Vince Rods Cancelled Platelet Estimate Cancelled Plt Clumps, EDTA Cancelled Large Platelets Cancelled Giant Platelets Cancelled RBC Morphology Cancelled Polychromasia Cancelled Hypochromasia (manual) Cancelled Poikilocytosis (manual Cancelled Basophilic Stippling Cancelled Anisocytosis (manual) Cancelled Microcytosis (manual) Cancelled Macrocytosis (manual) Cancelled Spherocytes Cancelled Sickle Cells Cancelled Target Cells Cancelled Tear Drop Cells Cancelled Ovalocytes Cancelled Stomatocytes Cancelled Helmet Cells Cancelled [place] Bodies Cancelled [place] Cells Cancelled Acanthocytes (Spur) Cancelled Rouleaux Cancelled Schistocytes Cancelled Sodium 139 Potassium 3.9 Chloride 101 Carbon Dioxide 28 Anion Gap 13 BUN 14 Creatinine 0.4 L Est GFR ( Amer) > 60 Est GFR (Non-Af Amer) > 60 Random Glucose 157 H Calcium 8.0 L Magnesium 1.8 Total Bilirubin 1.6 H AST 22 ALT 21 Alkaline Phosphatase 71 Total Protein 6.2 L Albumin 3.3 L Globulin 2.9 Albumin/Globulin Ratio 1.1 Assessment & Plan (1) Brain metastasis Assessment and Plan: will need an MRI of the brain with contrast to confirm emperic steroids may need radiation Status: Acute (2) Pancytopenia Assessment and Plan: secondary to recent chemotherapy neutropenic precautions will start growth factor transfusion support PRN Status: Acute (3) Breast cancer Assessment and Plan: bone, lung, soft tissue metastasis new brain metastasis; f/u MRI brain will likely need whole brain radiotherapy outpatient chemotherapy Thank you for this interesting consult. Status: Acute
--- NOTE | 2018-02-25 16:49 | RAD ---
Date of service: 02/25/2018 PROCEDURE: Radiographs of both shoulders HISTORY: Status post fall COMPARISON: No prior however correlation made with chest radiographs dated 02/23/2018 which partially imaged the left shoulder the the. FINDINGS: BONES: No definitive evidence of acute displaced fracture nor dislocation [id number] shoulders. JOINTS: Moderate degenerative osteoarthritis right acromioclavicular and right glenohumeral joints with mild to moderate degenerative osteoarthritis left acromioclavicular and left glenohumeral joints SOFT TISSUES: No radiopaque foreign bodies are identified. OTHER FINDINGS: In situ left IJ MediPort of the distal aspect extends along the left aspect of the mediastinum likely within a left-sided SVC. IMPRESSION: No definitive evidence of acute displaced fracture nor dislocation Degenerative osteoarthritis both shoulder girdles right greater than left
--- NOTE | 2018-02-25 17:43 | CP.PCM.PN ---
Subjective - Date & Time of Evaluation Date of Evaluation: 02/25/18 Time of Evaluation: 10:30 - Subjective Subjective: clinically same Objective - Vital Signs/Intake and Output Vital Signs (last 24 hours): Temp Pulse Resp BP Pulse Ox 97.9 F 109 H 20 145/87 100 02/25/18 16:00 02/25/18 16:00 02/25/18 16:00 02/25/18 16:00 02/25/18 16:00 Intake and Output: 02/25/18 02/25/18 06:59 18:59 Intake Total 480 Balance 480 - Medications Medications: Current Medications Enoxaparin Sodium (Lovenox) 40 mg SC DAILY [facility] Last Admin: 02/25/18 13:13 Dose: 40 mg Guaifenesin (Robitussin) 100 mg PO BID PRN PRN Reason: Cough Last Admin: 02/24/18 13:52 Dose: 100 mg Hydromorphone HCl (Dilaudid) 2 mg IVP Q6 PRN PRN Reason: Pain, severe (8-10) Last Admin: 02/25/18 15:55 Dose: 2 mg Moxifloxacin HCl (Avelox Iv 400mg/250ml Ns) 400 mg in 250 mls @ 167 mls/hr IVPB Q24H [facility]; Protocol Last Admin: 02/24/18 18:44 Dose: 167 mls/hr Methylprednisolone (Solu-Medrol) 40 mg IVP Q8 [facility] Last Admin: 02/25/18 13:13 Dose: 40 mg Mupirocin (Bactroban Ointment) 0 gm TOP BID [facility] Last Admin: 02/25/18 13:13 Dose: 1 applic Pantoprazole Sodium (Protonix Ec Tab) 40 mg PO DAILY [facility] Last Admin: 02/25/18 13:13 Dose: 40 mg Saliva Substitute (First Magic Mouthwash) 5 ml PO Q4H PRN PRN Reason: MOUTH SORE - Labs Labs: 02/25/18 08:08 02/25/18 08:08 - Constitutional Appears: Well - Head Exam Head Exam: ATRAUMATIC, NORMAL INSPECTION, NORMOCEPHALIC - Eye Exam Eye Exam: EOMI, Normal appearance, PERRL Pupil Exam: NORMAL ACCOMODATION, PERRL - ENT Exam ENT Exam: Mucous Membranes Moist, Normal Exam - Neck Exam Neck Exam: Full ROM, Normal Inspection. absent: Lymphadenopathy - Respiratory Exam Respiratory Exam: Decreased Breath Sounds - Cardiovascular Exam Cardiovascular Exam: REGULAR RHYTHM, +S1, +S2 - GI/Abdominal Exam GI & Abdominal Exam: Soft, Diminished Bowel Sounds - Rectal Exam Rectal Exam: Deferred
[2018-02-25] MEDS: Mag&Al/Simet/Diphen/Lido 237 ML KIT PO PRN (18:38)
[2018-02-25] MEDS: Moxifloxacin IV 400mg/250ml NS 400 MG/250 ML BAG IVPB SCH (18:38)
[2018-02-26] MEDS: Mag&Al/Simet/Diphen/Lido 237 ML KIT PO PRN ×3 (00:10→18:13)
[2018-02-26] MEDS: MethylPREDNISolone 40 mg Vial IVP SCH ×3 (06:12→22:25)
[2018-02-26] MEDS: guaiFENesin 100 mg/5 ml Syrup UD PO PRN (10:42)
[2018-02-26] MEDS: Pantoprazole 40 mg EC Tab PO SCH (10:42)
[2018-02-26] MEDS: Enoxaparin 40 mg Syringe SC SCH (10:42)
--- NOTE | 2018-02-26 16:57 | CP.PCM.PN ---
Subjective - Date & Time of Evaluation Date of Evaluation: 02/26/18 Time of Evaluation: 14:15 - Subjective Subjective: Neurology Consultation Follow-Up Note: Mrs. Murrieta was evaluated this afternoon at bedside. She still complains of generalized weakness to both legs and diplopia, but admits to improvement in her speech and verbal communication. States that she feels "pretty good" considering recent events. During attempt to have MRI taken yesterday, patient rolled off of the stretcher and landed on the lift platform. Therefore, MRI was not done until acute injuries were ruled out. Discussed with patient the importance of having the MRI done to rule out mets; she agrees. Today, patient denies headache, dizziness, chest pain, shortness of breath, nausea/vomiting. No acute overnight changes in condition per nursing staff. Objective - Vital Signs/Intake and Output Vital Signs (last 24 hours): Temp Pulse Resp BP Pulse Ox 98.4 F 117 H 20 136/81 95 02/26/18 15:00 02/26/18 15:00 02/26/18 15:00 02/26/18 15:00 02/26/18 15:00 Intake and Output: 02/26/18 02/26/18 06:59 18:59 Output Total 500 Balance -500 - Medications Medications: Current Medications Enoxaparin Sodium (Lovenox) 40 mg SC DAILY [facility] Last Admin: 02/26/18 10:42 Dose: 40 mg Guaifenesin (Robitussin) 100 mg PO BID PRN PRN Reason: Cough Last Admin: 02/26/18 10:42 Dose: 100 mg Hydromorphone HCl (Dilaudid) 2 mg IVP Q6 PRN PRN Reason: Pain, severe (8-10) Last Admin: 02/25/18 15:55 Dose: 2 mg Moxifloxacin HCl (Avelox Iv 400mg/250ml Ns) 400 mg in 250 mls @ 167 mls/hr IVPB Q24H [facility]; Protocol Last Admin: 02/25/18 18:38 Dose: 167 mls/hr Methylprednisolone (Solu-Medrol) 40 mg IVP Q8 [facility] Last Admin: 02/26/18 13:11 Dose: 40 mg Mupirocin (Bactroban Ointment) 0 gm TOP BID [facility] Last Admin: 02/26/18 10:43 Dose: 1 applic Pantoprazole Sodium (Protonix Ec Tab) 40 mg PO DAILY [facility] Last Admin: 02/26/18 10:42 Dose: 40 mg Saliva Substitute (First Magic Mouthwash) 5 ml PO Q4H PRN PRN Reason: MOUTH SORE Last Admin: 02/26/18 10:43 Dose: 5 ml - Labs Labs: 02/25/18 08:08 02/25/18 08:08 - Constitutional Appears: Well, Non-toxic, No Acute Distress - Head Exam Head Exam: ATRAUMATIC, NORMAL INSPECTION, NORMOCEPHALIC - Eye Exam Eye Exam: EOMI, Normal appearance Pupil Exam: NORMAL ACCOMODATION, PERRL - ENT Exam ENT Exam: Mucous Membranes Moist, Normal Exam - Neck Exam Neck Exam: Full ROM - Respiratory Exam Respiratory Exam: NORMAL BREATHING PATTERN - Extremities Exam Extremities Exam: Normal Inspection - Neurological Exam Neurological Exam: Alert, Awake, Oriented x3 Neuro motor strength exam: Left Upper Extremity: 4 (not an acute finding; recent surgery to LUE per patient.), Right Upper Extremity: 5, Left Lower Extremity: 4, Right Lower Extremity: 4 Additional comments: RLE and LLE weakness and ataxia noted; sensation diminished to RUE and RLE compared with the left; sensation to face intact bilaterally; reflexes are brisk bilaterally; gait could not be assessed due to the patient's weakness. - Psychiatric Exam Psychiatric exam: Normal Affect, Normal Mood - Skin Skin Exam: Normal Color Assessment and Plan (1) Frequent falls Assessment & Plan: Imaging: CT Head (02/25/18): no evidence of acute intracranial hemorrhage. Interval appearance of new foci of hypodensity in the right frontal, parietal lobes and left cerebellum since the previous study. The possibility of brain lesion should be excluded. Mild sinuses mucosal disease. -Mrs. Murrieta likely has metastatic disease to brain. -MRI Brain and Spinal MRI both ordered and are pending at this time---will follow up with results once done. Further management recommendations once MRI completed. -Continue PT. -Continue fall precautions. -Please notify neuro team of acute changes in condition. Case discussed with Dr. Read. Thank you for allowing us to participate in this patient's care. Status: Acute
[2018-02-26] MEDS: Moxifloxacin IV 400mg/250ml NS 400 MG/250 ML BAG IVPB SCH (18:07)
--- NOTE | 2018-02-26 19:19 | CP.PCM.PN ---
Subjective - Date & Time of Evaluation Date of Evaluation: 02/26/18 Time of Evaluation: 11:30 - Subjective Subjective: clinically same Objective - Vital Signs/Intake and Output Vital Signs (last 24 hours): Temp Pulse Resp BP Pulse Ox 98.4 F 117 H 20 136/81 95 02/26/18 15:00 02/26/18 15:00 02/26/18 15:00 02/26/18 15:00 02/26/18 15:00 Intake and Output: 02/26/18 02/27/18 18:59 06:59 Output Total 500 Balance -500 - Medications Medications: Current Medications Enoxaparin Sodium (Lovenox) 40 mg SC DAILY [facility] Last Admin: 02/26/18 10:42 Dose: 40 mg Guaifenesin (Robitussin) 100 mg PO BID PRN PRN Reason: Cough Last Admin: 02/26/18 10:42 Dose: 100 mg Hydromorphone HCl (Dilaudid) 2 mg IVP Q6 PRN PRN Reason: Pain, severe (8-10) Last Admin: 02/25/18 15:55 Dose: 2 mg Moxifloxacin HCl (Avelox Iv 400mg/250ml Ns) 400 mg in 250 mls @ 167 mls/hr IVPB Q24H [facility]; Protocol Last Admin: 02/26/18 18:07 Dose: 167 mls/hr Methylprednisolone (Solu-Medrol) 40 mg IVP Q8 [facility] Last Admin: 02/26/18 13:11 Dose: 40 mg Mupirocin (Bactroban Ointment) 0 gm TOP BID [facility] Last Admin: 02/26/18 18:06 Dose: 1 applic Pantoprazole Sodium (Protonix Ec Tab) 40 mg PO DAILY [facility] Last Admin: 02/26/18 10:42 Dose: 40 mg Saliva Substitute (First Magic Mouthwash) 5 ml PO Q4H PRN PRN Reason: MOUTH SORE Last Admin: 02/26/18 18:13 Dose: 5 ml - Labs Labs: 02/25/18 08:08 02/25/18 08:08 - Constitutional Appears: Well - Head Exam Head Exam: ATRAUMATIC, NORMAL INSPECTION, NORMOCEPHALIC - Eye Exam Eye Exam: EOMI, Normal appearance, PERRL Pupil Exam: NORMAL ACCOMODATION, PERRL - ENT Exam ENT Exam: Mucous Membranes Moist, Normal Exam - Neck Exam Neck Exam: Full ROM, Normal Inspection. absent: Lymphadenopathy - Respiratory Exam Respiratory Exam: Decreased Breath Sounds - Cardiovascular Exam Cardiovascular Exam: REGULAR RHYTHM, +S1, +S2 - GI/Abdominal Exam GI & Abdominal Exam: Soft, Diminished Bowel Sounds - Rectal Exam Rectal Exam: Deferred
--- NOTE | 2018-02-26 20:06 | CARD ---
APPROVED REPORT Date of service: 02/23/2018 EKG Measurement Heart [id number] <Conclusion> Normal sinus rhythm Nonspecific T wave abnormality Prolonged QT Abnormal ECG
[2018-02-27] MEDS: MethylPREDNISolone 40 mg Vial IVP SCH ×3 (05:21→21:38)
[2018-02-27] MEDS: Mag&Al/Simet/Diphen/Lido 237 ML KIT PO PRN ×2 (09:54→18:14)
[2018-02-27] MEDS: Enoxaparin 40 mg Syringe SC SCH (09:54)
[2018-02-27] MEDS: guaiFENesin 100 mg/5 ml Syrup UD PO PRN (09:54)
[2018-02-27] MEDS: Pantoprazole 40 mg EC Tab PO SCH (09:54)
--- NOTE | 2018-02-27 17:34 | CP.PCM.PN ---
Subjective - Date & Time of Evaluation Date of Evaluation: 02/27/18 Time of Evaluation: 10:45 - Subjective Subjective: clinically same Objective - Vital Signs/Intake and Output Vital Signs (last 24 hours): Temp Pulse Resp BP Pulse Ox 98.1 F 99 H 20 149/88 97 02/27/18 16:00 02/27/18 16:00 02/27/18 16:00 02/27/18 16:00 02/27/18 16:00 Intake and Output: 02/27/18 02/27/18 06:59 18:59 Output Total 800 Balance -800 - Medications Medications: Current Medications Enoxaparin Sodium (Lovenox) 40 mg SC DAILY [facility] Last Admin: 02/27/18 09:54 Dose: 40 mg Guaifenesin (Robitussin) 100 mg PO BID PRN PRN Reason: Cough Last Admin: 02/27/18 09:54 Dose: 100 mg Hydromorphone HCl (Dilaudid) 2 mg IVP Q6 PRN PRN Reason: Pain, severe (8-10) Last Admin: 02/25/18 15:55 Dose: 2 mg Moxifloxacin HCl (Avelox Iv 400mg/250ml Ns) 400 mg in 250 mls @ 167 mls/hr IVPB Q24H [facility]; Protocol Last Admin: 02/26/18 18:07 Dose: 167 mls/hr Methylprednisolone (Solu-Medrol) 40 mg IVP Q8 [facility] Last Admin: 02/27/18 13:18 Dose: 40 mg Mupirocin (Bactroban Ointment) 0 gm TOP BID [facility] Last Admin: 02/27/18 10:02 Dose: 1 applic Pantoprazole Sodium (Protonix Ec Tab) 40 mg PO DAILY [facility] Last Admin: 02/27/18 09:54 Dose: 40 mg Saliva Substitute (First Magic Mouthwash) 5 ml PO Q4H PRN PRN Reason: MOUTH SORE Last Admin: 02/27/18 09:54 Dose: 5 ml - Labs Labs: 02/25/18 08:08 02/25/18 08:08 - Constitutional Appears: Well - Head Exam Head Exam: ATRAUMATIC, NORMAL INSPECTION, NORMOCEPHALIC - Eye Exam Eye Exam: EOMI, Normal appearance, PERRL Pupil Exam: NORMAL ACCOMODATION, PERRL - ENT Exam ENT Exam: Mucous Membranes Moist, Normal Exam - Neck Exam Neck Exam: Full ROM, Normal Inspection. absent: Lymphadenopathy - Respiratory Exam Respiratory Exam: Decreased Breath Sounds - Cardiovascular Exam Cardiovascular Exam: REGULAR RHYTHM, +S1, +S2 - GI/Abdominal Exam GI & Abdominal Exam: Soft, Diminished Bowel Sounds - Rectal Exam Rectal Exam: Deferred
[2018-02-27] MEDS: Moxifloxacin IV 400mg/250ml NS 400 MG/250 ML BAG IVPB SCH (18:14)
[2018-02-28] MEDS ORDERED: Gadodiamide 287 mg/ml 20 ml IV ONE (03:00)
[2018-02-28] MEDS: MethylPREDNISolone 40 mg Vial IVP SCH ×2 (05:50→14:50)
[2018-02-28 08:13] LABS: BASO % 0.3 % (0.0-2.0); EOS % 0.2 % (0.0-4.0); HEMOGLOBIN 7.3 g/dL (11.0-16.0); LYMPH # 0.1 K/uL (1.0-4.3); LYMPH % 73.4 % (20.0-40.0); MEAN CELL VOLUME 74.1 fL (81.0-99.0); MEAN CORPUSCULAR HGB CONC 32.4 g/dL (33.0-37.0); MEAN PLATELET VOLUME 8.5 fL (7.2-11.7); MONO % 14.3 % (0.0-10.0); NEUT % 11.8 % (50.0-75.0); NRBC % 3.9 % (0.0-2.0); RBC 3.05 Mil/uL (3.80-5.20); RED CELL DISTRIBUTION WIDTH 17.6 % (11.5-14.5)
[2018-02-28 08:32] LABS: WHITE BLOOD COUNT 0.2 K/uL (4.8-10.8)
[2018-02-28 08:34] LABS: ALB/GLOB RATIO 1.1 (1.0-2.1); ALBUMIN 2.8 g/dL (3.5-5.0); ALT/SGPT 41 U/L (9-52); AST/SGOT 21 U/L (14-36); BLOOD UREA NITROGEN 18 mg/dL (7-17); CALCIUM 7.5 mg/dl (8.6-10.4); GFR NON-AFRICAN AMERICAN > 60
[2018-02-28] MEDS ORDERED: Potassium Chloride 20 mEq/15 ml LIQ UD PO ONE (09:47)
[2018-02-28] MEDS: Pantoprazole 40 mg EC Tab PO SCH (09:52)
[2018-02-28] MEDS: Enoxaparin 40 mg Syringe SC SCH (09:52)
[2018-02-28] MEDS: Mag&Al/Simet/Diphen/Lido 237 ML KIT PO PRN (09:53)
[2018-02-28] MEDS: guaiFENesin 100 mg/5 ml Syrup UD PO PRN (09:57)
[2018-02-28] MEDS ORDERED: Potassium Chloride 20 mEq ER Tab PO ONE (10:00)
--- NOTE | 2018-02-28 12:54 | CP.PCM.PN ---
Subjective - Date & Time of Evaluation Date of Evaluation: 02/28/18 Time of Evaluation: 12:00 - Subjective Subjective: Neurology Consultation Follow-Up Note: Mrs. Murrieta was evaluated this morning at bedside. Today she is in good spirits and states that she feels "good" today considering her fall last week in MRI. She still complains of generalized weakness to both legs. Admits that her diplopia has resolved, and also admits to improvement in her speech and verbal communication. MRI Brain and Spine still have yet to be done. Discussed with patient the importance of having the MRI done to rule out mets; she is still in agreement. Today, patient denies headache, dizziness, visual changes, chest pain, shortness of breath, nausea/vomiting. No acute overnight changes in condition per nursing staff. Objective - Vital Signs/Intake and Output Vital Signs (last 24 hours): Temp Pulse Resp BP Pulse Ox 97.9 F 79 20 143/83 97 02/28/18 07:00 02/28/18 07:00 02/28/18 07:00 02/28/18 07:00 02/28/18 07:00 Intake and Output: 02/28/18 02/28/18 06:59 18:59 Intake Total 500 Balance 500 - Medications Medications: Current Medications Enoxaparin Sodium (Lovenox) 40 mg SC DAILY [facility] Last Admin: 02/28/18 09:52 Dose: 40 mg Guaifenesin (Robitussin) 100 mg PO BID PRN PRN Reason: Cough Last Admin: 02/28/18 09:57 Dose: 100 mg Moxifloxacin HCl (Avelox Iv 400mg/250ml Ns) 400 mg in 250 mls @ 167 mls/hr IVPB Q24H [facility]; Protocol Last Admin: 02/27/18 18:14 Dose: 167 mls/hr Methylprednisolone (Solu-Medrol) 40 mg IVP Q8 [facility] Last Admin: 02/28/18 05:50 Dose: 40 mg Mupirocin (Bactroban Ointment) 0 gm TOP BID [facility] Last Admin: 02/28/18 09:53 Dose: 1 applic Pantoprazole Sodium (Protonix Ec Tab) 40 mg PO DAILY [facility] Last Admin: 02/28/18 09:52 Dose: 40 mg Saliva Substitute (First Magic Mouthwash) 5 ml PO Q4H PRN PRN Reason: MOUTH SORE Last Admin: 02/28/18 09:53 Dose: 5 ml - Labs Labs: 02/28/18 07:56 02/28/18 07:56 - Constitutional Appears: Well, Non-toxic, No Acute Distress - Head Exam Head Exam: ATRAUMATIC, NORMAL INSPECTION, NORMOCEPHALIC - Eye Exam Eye Exam: EOMI, Normal appearance Pupil Exam: NORMAL ACCOMODATION, PERRL - ENT Exam ENT Exam: Mucous Membranes Moist - Neck Exam Neck Exam: Full ROM, Normal Inspection - Respiratory Exam Respiratory Exam: NORMAL BREATHING PATTERN - Neurological Exam Neurological Exam: Alert, Awake, CN II-XII Intact, Oriented x3 Neuro motor strength exam: Left Upper Extremity: 4 (weakness and decreased ROM noted 2/2 old surgery; not an acute change), Right Upper Extremity: 5, Left Lower Extremity: 4, Right Lower Extremity: 4 Additional comments: RLE and LLE weakness and ataxia noted; sensation is equal and intact bilaterally, which is an improvement compared to when I saw her on Wednesday; reflexes are brisk bilaterally; gait could not be assessed due to the patient's lower extremity weakness. Assessment and Plan (1) Frequent falls Assessment & Plan: Imaging: CT Head (02/25/18): no evidence of acute intracranial hemorrhage. Interval appearance of new foci of hypodensity in the right frontal, parietal lobes and left cerebellum since the previous study. The possibility of brain lesion should be excluded. Mild sinuses mucosal disease. -Mrs. Murrieta likely has metastatic disease to brain. -MRI Brain and Spinal MRI both ordered and are still pending at this time---will follow up with results once done. -Further management recommendations once MRI is completed. -Continue PT for ambulation and transfers. -Continue fall precautions. -Please notify neuro team of acute changes in condition. Case discussed with Dr. Fleming. Thank you for allowing us to participate in this patient's care. Status: Acute
--- NOTE | 2018-02-28 15:26 | MRI ---
Date of service: 02/28/2018 PROCEDURE: MR LUMBAR SPINE WITHOUT CONTRAST HISTORY: bone metastasis COMPARISON: None available. TECHNIQUE: Multiecho multiplanar sequences were performed through the lumbar spine without the use of intravenous contrast. FINDINGS: The current study reveals no acute compression fractures no retropulsed fragments. Vertebral bodies exhibit normal stature. There is a focal area of bright T1 and T2 signal along the anterior inferior margin of the incompletely visualized T11 segment that could represent hemangioma. Bone scan follow-up may be prudent for further evaluation. Vertebral bodies exhibit normal alignment. Facets normally aligned There appears to be a sacralized L5 segment. T12-L1: No disc herniation, spinal canal stenosis or neural foraminal narrowing. L1-2: No disc herniation, spinal canal stenosis or neural foraminal narrowing. L2-3: Mild disc desiccation and posterior disc space narrowing. Small broad-based bulge of the posterior annulus also extends into the proximal inferior margins of both exit foramina more so on the right where there may in fact be a small foraminal protrusion component. The facets are quite hypertrophic and flavum buckled with bilateral lateral recess and central canal stenosis. The exit foramina are narrowed bilaterally.. Central canal L3-4: The there is a small Schmorl's node along the anterior inferior corner of the L3 segment associated with some minimal of peripheral edema. There is mild disc desiccation and posterior disc space narrowing. Small broad-based disc bulge ridge complex extends into the proximal inferior margins of both exit foramina. Facets also hypertrophic and flavum buckled. Findings result in moderate to fairly significant bilateral lateral recess and central canal stenosis. The exit foramina are slightly narrowed bilaterally. L4-5: Adequate disc height and hydration. No disc herniation or significant disc bulge. Facet joints are moderately hypertrophic. Central canal and exit foramina are also adequate., Spinal canal stenosis or neural foraminal narrowing. L5-S1: No disc herniation, spinal canal stenosis or neural foraminal narrowing. Mild facet arthropathy. Central bony canal and exit foramina adequate. OTHER FINDINGS: Conus terminates at approximately the L1 level. IMPRESSION: Suspect hemangioma inferior anterior T11 segment which is incompletely visualized. Multilevel degenerative spondylosis most notably affecting the L3-L4 and L2-L3 levels where there is bilateral lateral recess and central canal stenosis as detailed above.
--- NOTE | 2018-02-28 16:17 | MRI ---
Date of service: 02/28/2018 PROCEDURE: MRI BRAIN WITH AND WITHOUT CONTRAST HISTORY: Metastatic disease with frequent falls. COMPARISON: No comparison made with CT scan brain 02/25/2018. TECHNIQUE: Multiplanar, multisequence MR images of the brain were obtained with and without intravenous contrast enhancement. 20 cc Omniscan contrast material injected for this examination. FINDINGS: HEMORRHAGE: No acute parenchymal, subarachnoid or extra-axial hemorrhage.. No evidence of hemosiderin deposition identified on gradient echo weighted sequence. DWI: No evidence of an acute or early subacute infarction. BRAIN PARENCHYMA: There are multiple metastatic lesions seen scattered throughout both cerebral hemispheres as well as both cerebellar hemispheres. Some of the larger lesions in the frontal lobes and another in the occipito parietal watershed zone exhibit mild to moderate surrounding edema. 2 or 3 adjacent lesions in the left cerebellum exhibit confluent surrounding edema resulting in mild mass effect with overlying effacement of cerebellar sulci as well as mild compression of the lateral aspect 4th ventricle. Enhancement Multiple metastatic lesions as above. VENTRICLES: No obstructive hydrocephalus. CRANIUM: Unremarkable. ORBITS: Orbits and contents grossly unremarkable. PARANASAL SINUSES/MASTOIDS: Destiny mild mucosal thickening seen within both maxillary antra as well as the ethmoid air complex and left aspect of the frontal sinus VASCULAR SYSTEM: Visualized major vascular flow voids at skull base patent. OTHER FINDINGS: None . IMPRESSION: There are multiple metastatic lesions seen scattered throughout the supra and infratentorial compartment as described. Note these findings discussed with 5S Nurse Dar at approximately 4:10 p.m. with written down and read back verification.
[2018-02-28] MEDS: Dexamethasone 4 mg/1 ml IV SCH ×2 (17:25→21:41)
[2018-02-28] MEDS: Moxifloxacin IV 400mg/250ml NS 400 MG/250 ML BAG IVPB SCH (17:57)
--- NOTE | 2018-02-28 22:32 | CP.PCM.PN ---
Subjective - Date & Time of Evaluation Date of Evaluation: 02/26/18 Time of Evaluation: 17:00 - Subjective Subjective: Has sore throat Objective - Vital Signs/Intake and Output Vital Signs (last 24 hours): Temp Pulse Resp BP Pulse Ox 97.9 F 90 18 159/90 H 98 02/28/18 15:00 02/28/18 15:00 02/28/18 15:00 02/28/18 15:00 02/28/18 15:00 - Medications Medications: Current Medications Dexamethasone (Decadron Inj) 8 mg IV Q8 [facility] Last Admin: 02/28/18 21:41 Dose: 8 mg Enoxaparin Sodium (Lovenox) 40 mg SC DAILY [facility] Last Admin: 02/28/18 09:52 Dose: 40 mg Guaifenesin (Robitussin) 100 mg PO BID PRN PRN Reason: Cough Last Admin: 02/28/18 09:57 Dose: 100 mg Moxifloxacin HCl (Avelox Iv 400mg/250ml Ns) 400 mg in 250 mls @ 167 mls/hr IVPB Q24H [facility]; Protocol Last Admin: 02/28/18 17:57 Dose: 167 mls/hr Mupirocin (Bactroban Ointment) 0 gm TOP BID [facility] Last Admin: 02/28/18 18:01 Dose: 1 applic Pantoprazole Sodium (Protonix Ec Tab) 40 mg PO DAILY [facility] Last Admin: 02/28/18 09:52 Dose: 40 mg Saliva Substitute (First Magic Mouthwash) 5 ml PO Q4H PRN PRN Reason: MOUTH SORE Last Admin: 02/28/18 09:53 Dose: 5 ml - Labs Labs: 02/28/18 07:56 02/28/18 07:56 - Head Exam Head Exam: ATRAUMATIC - Eye Exam Eye Exam: Normal appearance - ENT Exam ENT Exam: Mucous Membranes Dry - Respiratory Exam Respiratory Exam: NORMAL BREATHING PATTERN - Cardiovascular Exam Cardiovascular Exam: +S1, +S2 - GI/Abdominal Exam GI & Abdominal Exam: Normal Bowel Sounds - Neurological Exam Neurological Exam: Oriented x3 Assessment and Plan (1) Brain metastasis Assessment & Plan: will need an MRI of the brain with contrast to confirm emperic steroids may need radiation Status: Acute (2) Pancytopenia Assessment & Plan: secondary to recent chemotherapy neutropenic precautions will start growth factor transfusion support PRN Status: Acute (3) Breast cancer Assessment & Plan: bone, lung, soft tissue metastasis new brain metastasis; f/u MRI brain will likely need whole brain radiotherapy outpatient chemotherapy Status: Acute
--- NOTE | 2018-02-28 22:33 | CP.PCM.PN ---
Subjective - Date & Time of Evaluation Date of Evaluation: 02/27/18 Time of Evaluation: 19:00 - Subjective Subjective: Has sore throat Objective - Vital Signs/Intake and Output Vital Signs (last 24 hours): Temp Pulse Resp BP Pulse Ox 97.9 F 90 18 159/90 H 98 02/28/18 15:00 02/28/18 15:00 02/28/18 15:00 02/28/18 15:00 02/28/18 15:00 - Medications Medications: Current Medications Dexamethasone (Decadron Inj) 8 mg IV Q8 [facility] Last Admin: 02/28/18 21:41 Dose: 8 mg Enoxaparin Sodium (Lovenox) 40 mg SC DAILY [facility] Last Admin: 02/28/18 09:52 Dose: 40 mg Guaifenesin (Robitussin) 100 mg PO BID PRN PRN Reason: Cough Last Admin: 02/28/18 09:57 Dose: 100 mg Moxifloxacin HCl (Avelox Iv 400mg/250ml Ns) 400 mg in 250 mls @ 167 mls/hr IVPB Q24H [facility]; Protocol Last Admin: 02/28/18 17:57 Dose: 167 mls/hr Mupirocin (Bactroban Ointment) 0 gm TOP BID [facility] Last Admin: 02/28/18 18:01 Dose: 1 applic Pantoprazole Sodium (Protonix Ec Tab) 40 mg PO DAILY [facility] Last Admin: 02/28/18 09:52 Dose: 40 mg Saliva Substitute (First Magic Mouthwash) 5 ml PO Q4H PRN PRN Reason: MOUTH SORE Last Admin: 02/28/18 09:53 Dose: 5 ml - Labs Labs: 02/28/18 07:56 02/28/18 07:56 - Head Exam Head Exam: ATRAUMATIC - Eye Exam Eye Exam: Normal appearance - ENT Exam ENT Exam: Mucous Membranes Dry - Respiratory Exam Respiratory Exam: NORMAL BREATHING PATTERN - Cardiovascular Exam Cardiovascular Exam: +S1, +S2 - GI/Abdominal Exam GI & Abdominal Exam: Normal Bowel Sounds Assessment and Plan (1) Brain metastasis Assessment & Plan: will need an MRI of the brain with contrast to confirm emperic steroids may need radiation Status: Acute (2) Pancytopenia Assessment & Plan: secondary to recent chemotherapy neutropenic precautions on growth factor transfusion support PRN Status: Acute (3) Breast cancer Assessment & Plan: bone, lung, soft tissue metastasis new brain metastasis; f/u MRI brain will likely need whole brain radiotherapy outpatient chemotherapy Status: Acute
--- NOTE | 2018-02-28 22:34 | CP.PCM.PN ---
Subjective - Date & Time of Evaluation Date of Evaluation: 02/28/18 Time of Evaluation: 20:00 - Subjective Subjective: Has sore throat, informed patient of MRI brain results and need for radiotherapy. Objective - Vital Signs/Intake and Output Vital Signs (last 24 hours): Temp Pulse Resp BP Pulse Ox 97.9 F 90 18 159/90 H 98 02/28/18 15:00 02/28/18 15:00 02/28/18 15:00 02/28/18 15:00 02/28/18 15:00 - Medications Medications: Current Medications Dexamethasone (Decadron Inj) 8 mg IV Q8 [facility] Last Admin: 02/28/18 21:41 Dose: 8 mg Enoxaparin Sodium (Lovenox) 40 mg SC DAILY [facility] Last Admin: 02/28/18 09:52 Dose: 40 mg Guaifenesin (Robitussin) 100 mg PO BID PRN PRN Reason: Cough Last Admin: 02/28/18 09:57 Dose: 100 mg Moxifloxacin HCl (Avelox Iv 400mg/250ml Ns) 400 mg in 250 mls @ 167 mls/hr IVPB Q24H [facility]; Protocol Last Admin: 02/28/18 17:57 Dose: 167 mls/hr Mupirocin (Bactroban Ointment) 0 gm TOP BID [facility] Last Admin: 02/28/18 18:01 Dose: 1 applic Pantoprazole Sodium (Protonix Ec Tab) 40 mg PO DAILY [facility] Last Admin: 02/28/18 09:52 Dose: 40 mg Saliva Substitute (First Magic Mouthwash) 5 ml PO Q4H PRN PRN Reason: MOUTH SORE Last Admin: 02/28/18 09:53 Dose: 5 ml - Labs Labs: 02/28/18 07:56 02/28/18 07:56 - Head Exam Head Exam: ATRAUMATIC - Eye Exam Eye Exam: Normal appearance - ENT Exam ENT Exam: Mucous Membranes Dry - Respiratory Exam Respiratory Exam: NORMAL BREATHING PATTERN - Cardiovascular Exam Cardiovascular Exam: +S1, +S2 - GI/Abdominal Exam GI & Abdominal Exam: Normal Bowel Sounds Assessment and Plan (1) Brain metastasis Assessment & Plan: will need an MRI of the brain with contrast to confirm emperic steroids may need radiation Status: Acute (2) Pancytopenia Assessment & Plan: secondary to recent chemotherapy neutropenic precautions will start growth factor transfusion support PRN Status: Acute (3) Breast cancer Assessment & Plan: bone, lung, soft tissue metastasis new brain metastasis; f/u MRI brain will likely need whole brain radiotherapy outpatient chemotherapy Status: Acute
--- NOTE | 2018-02-28 23:51 | CP.PCM.PN ---
Subjective - Date & Time of Evaluation Date of Evaluation: 02/28/18 Time of Evaluation: 09:30 - Subjective Subjective: clinically same Objective - Vital Signs/Intake and Output Vital Signs (last 24 hours): Temp Pulse Resp BP Pulse Ox 97.9 F 90 18 159/90 H 98 02/28/18 15:00 02/28/18 15:00 02/28/18 15:00 02/28/18 15:00 02/28/18 15:00 - Medications Medications: Current Medications Dexamethasone (Decadron Inj) 8 mg IV Q8 [facility] Last Admin: 02/28/18 21:41 Dose: 8 mg Enoxaparin Sodium (Lovenox) 40 mg SC DAILY [facility] Last Admin: 02/28/18 09:52 Dose: 40 mg Guaifenesin (Robitussin) 100 mg PO BID PRN PRN Reason: Cough Last Admin: 02/28/18 09:57 Dose: 100 mg Moxifloxacin HCl (Avelox Iv 400mg/250ml Ns) 400 mg in 250 mls @ 167 mls/hr IVPB Q24H [facility]; Protocol Last Admin: 02/28/18 17:57 Dose: 167 mls/hr Mupirocin (Bactroban Ointment) 0 gm TOP BID [facility] Last Admin: 02/28/18 18:01 Dose: 1 applic Pantoprazole Sodium (Protonix Ec Tab) 40 mg PO DAILY [facility] Last Admin: 02/28/18 09:52 Dose: 40 mg Saliva Substitute (First Magic Mouthwash) 5 ml PO Q4H PRN PRN Reason: MOUTH SORE Last Admin: 02/28/18 09:53 Dose: 5 ml - Labs Labs: 02/28/18 07:56 02/28/18 07:56 - Constitutional Appears: Well - Head Exam Head Exam: ATRAUMATIC, NORMAL INSPECTION, NORMOCEPHALIC - Eye Exam Eye Exam: EOMI, Normal appearance, PERRL Pupil Exam: NORMAL ACCOMODATION, PERRL - ENT Exam ENT Exam: Mucous Membranes Moist, Normal Exam - Neck Exam Neck Exam: Full ROM, Normal Inspection. absent: Lymphadenopathy - Respiratory Exam Respiratory Exam: Decreased Breath Sounds - Cardiovascular Exam Cardiovascular Exam: REGULAR RHYTHM, +S1, +S2 - GI/Abdominal Exam GI & Abdominal Exam: Soft, Diminished Bowel Sounds - Rectal Exam Rectal Exam: Deferred
[2018-03-01] MEDS: Dexamethasone 4 mg/1 ml IV SCH ×3 (06:46→22:11)
[2018-03-01 07:30] LABS: BASO % 0.3 % (0.0-2.0); EOS % 0.1 % (0.0-4.0); HEMOGLOBIN 7.9 g/dL (11.0-16.0); LYMPH # 0.5 K/uL (1.0-4.3); LYMPH % 35.3 % (20.0-40.0); MEAN CELL VOLUME 73.7 fL (81.0-99.0); MEAN CORPUSCULAR HGB CONC 32.5 g/dL (33.0-37.0); MEAN PLATELET VOLUME 8.5 fL (7.2-11.7); MONO # 0.3 K/uL (0.0-0.8); MONO % 21.4 % (0.0-10.0); NEUT # 0.6 K/uL (1.8-7.0); NEUT % 42.9 % (50.0-75.0); NRBC % 19.5 % (0.0-2.0); PLATELET COUNT 95 K/uL (130-400); RBC 3.28 Mil/uL (3.80-5.20); RED CELL DISTRIBUTION WIDTH 17.4 % (11.5-14.5)
[2018-03-01 07:40] LABS: WHITE BLOOD COUNT 1.3 K/uL (4.8-10.8)
[2018-03-01 08:11] LABS: ALB/GLOB RATIO 0.9 (1.0-2.1); ALBUMIN 2.8 g/dL (3.5-5.0); ALT/SGPT 50 U/L (9-52); AST/SGOT 28 U/L (14-36); BLOOD UREA NITROGEN 20 mg/dL (7-17); CALCIUM 7.9 mg/dl (8.6-10.4); GFR NON-AFRICAN AMERICAN > 60
[2018-03-01 08:55] LABS: NUCLEATED RED BLOOD CELL 1 % (0-0); TOTAL CELLS COUNTED 50
[2018-03-01 08:56] LABS: NEUTROPHIL 42 % (50-75)
[2018-03-01 08:57] LABS: ANISOCYTOSIS SLIGHT; LYMPHOCYTE 32 % (20-40); MONOCYTE 26 % (0-10); MYELOCYTE 0 % (0-0); PLATELET ESTIMATE DECREASED (NORMAL); POIKILOCYTOSIS SLIGHT
[2018-03-01 08:58] LABS: MICROCYTOSIS SLIGHT; OVALOCYTES SLIGHT
[2018-03-01 08:59] LABS: BURR CELLS SLIGHT; HYPOCHROMIC MODERATE; TEARDROP CELLS SLIGHT
[2018-03-01 09:00] LABS: LARGE PLATELETS PRESENT
[2018-03-01] MEDS: guaiFENesin 100 mg/5 ml Syrup UD PO PRN (09:38)
[2018-03-01] MEDS: Enoxaparin 40 mg Syringe SC SCH (09:38)
[2018-03-01] MEDS: Mag&Al/Simet/Diphen/Lido 237 ML KIT PO PRN ×2 (09:38→17:39)
[2018-03-01] MEDS: Pantoprazole 40 mg EC Tab PO SCH (09:38)
[2018-03-01] MEDS: Nitroglycerin 2% Ointment Foilpak UD TOP PRN (09:38)
--- NOTE | 2018-03-01 11:13 | CP.PCM.CON ---
History of Present Illness - History of Present Illness History of Present Illness: Ms Murrieta is a 57 year old female with metastatic breast cancer. She completed palliative radiation to the left proximal tibia and left hip on January 03, 2018. She was admitted on February [id number] after a fall and with left leg weakness. Her last chemotherapy was on February 21, 2018. A MRI of the thoracic, spine revealed a 2cm T11 vertebral body lesion. There was a sub-cm lesion at T12. A MRI of the cervical spine on February 23, 2018 revealed no metastases. On February 25, 2018, she had x-rays of the sacrum/coccyx and hips which revealed no fracture, but a lesion in the left sacral ala. A MRI of the lumbar spine on February 28, 2018 was negative. A MRI of the brain revealed diffuse bone metastases. We were asked to see the patient for radiation therapy. Review of Systems - Constitutional Constitutional: Frequent Falls, Weakness - Respiratory Respiratory: Cough, Dyspnea Past Patient History - Past Medical History & Family History Past Medical History?: Yes - Past Social History Smoking Status: Never Smoked Alcohol: None Home Situation {Lives}: With Family - CARDIAC Hx Hypertension: Yes - PULMONARY Hx Asthma: Yes (CHILDHOOD NO MEDS) Hx Pneumonia: Yes (Childhood) - NEUROLOGICAL Hx Neurological Disorder: No - HEENT Hx HEENT Problems: No Other/Comment: GLASSES - RENAL Hx Chronic Kidney Disease: No - ENDOCRINE/METABOLIC Hx Endocrine Disorders: No - HEMATOLOGICAL/ONCOLOGICAL Hx Cancer: Yes (breast 2018) Other/Comment: in chemotherapy every wednesday - INTEGUMENTARY Hx Dermatological Problems: No - MUSCULOSKELETAL/RHEUMATOLOGICAL Hx Falls: Yes Hx Fractures: Yes (TOE/ARM NO SURGERY) - GENITOURINARY/GYNECOLOGICAL Hx Genitourinary Disorders: Yes Other/Comment: right breast cancer - PSYCHIATRIC Hx Substance Use: No - SURGICAL HISTORY Hx Surgeries: Yes Hx Section: Yes (one) Other/Comment: breast removal s/p breast ca july 2014. - ANESTHESIA Hx Anesthesia: Yes Hx Anesthesia Reactions: No Hx Malignant Hyperthermia: No Meds Allergies/Adverse Reactions: Allergies Allergy/AdvReac Type Severity Reaction Status Date / Time No Known Allergies Allergy Verified 02/23/18 14:57 - Medications Medications: Current Medications Dexamethasone (Decadron Inj) 8 mg IV Q8 [facility] Last Admin: 03/01/18 06:46 Dose: 8 mg Enoxaparin Sodium (Lovenox) 40 mg SC DAILY [facility] Last Admin: 03/01/18 09:38 Dose: 40 mg Guaifenesin (Robitussin) 100 mg PO BID PRN PRN Reason: Cough Last Admin: 03/01/18 09:38 Dose: 100 mg Moxifloxacin HCl (Avelox Iv 400mg/250ml Ns) 400 mg in 250 mls @ 167 mls/hr IVPB Q24H [facility]; Protocol Last Admin: 02/28/18 17:57 Dose: 167 mls/hr Mupirocin (Bactroban Ointment) 0 gm TOP BID [facility] Last Admin: 03/01/18 09:38 Dose: 1 applic Nitroglycerin (Nitro-Bid 2% Oint) 1 ea TOP Q6H PRN PRN Reason: Systolic Blood Pressure Last Admin: 03/01/18 09:38 Dose: 1 ea Pantoprazole Sodium (Protonix Ec Tab) 40 mg PO DAILY [facility] Last Admin: 03/01/18 09:38 Dose: 40 mg Saliva Substitute (First Magic Mouthwash) 5 ml PO Q4H PRN PRN Reason: MOUTH SORE Last Admin: 03/01/18 09:38 Dose: 5 ml Physical Exam - Head Exam Head Exam: NORMAL INSPECTION - Eye Exam Eye Exam: EOMI - ENT Exam ENT Exam: Mucous Membranes Moist - Respiratory Exam Respiratory Exam: Wheezes - Cardiovascular Exam Cardiovascular Exam: Tachycardia - GI/Abdominal Exam GI & Abdominal Exam: Normal Bowel Sounds - Neurological Exam Neurological exam: CN II-XII Intact, Oriented x3 Results - Vital Signs Recent Vital Signs: Last Vital Signs Temp 98.4 F 03/01/18 07:00 Pulse 92 H 03/01/18 07:00 Resp 18 03/01/18 07:00 BP 158/94 H 03/01/18 07:00 Pulse Ox 97 03/01/18 07:00 - Labs Result Diagrams: 03/01/18 07:22 03/01/18 07:22 Labs: Laboratory Results - last 24 hr 03/01/18 03/01/18 07:22 07:22 WBC 1.3 L* D RBC 3.28 L Hgb 7.9 L Hct 24.2 L MCV 73.7 L MCH 24.0 L MCHC 32.5 L RDW 17.4 H Plt Count 95 L MPV 8.5 Neut % (Auto) 42.9 L Lymph % (Auto) 35.3 [place] % (Auto) 21.4 H Eos % (Auto) 0.1 Baso % (Auto) 0.3 Neut # (Auto) 0.6 L Lymph # (Auto) 0.5 L [place] # (Auto) 0.3 Eos # (Auto) 0.0 Baso # (Auto) 0.0 Neutrophils % (Manual) 42 L Lymphocytes % (Manual) 32 Monocytes % (Manual) 26 H Myelocytes % 0 Nucleated RBC % 1 H Platelet Estimate Decreased L Large Platelets Present Hypochromasia (manual) Moderate Poikilocytosis (manual Slight Anisocytosis (manual) Slight Microcytosis (manual) Slight Tear Drop Cells Slight Ovalocytes Slight [place] Cells Slight Sodium 138 Potassium 4.4 Chloride 102 Carbon Dioxide 29 Anion Gap 11 BUN 20 H Creatinine 0.5 L Est GFR ( Amer) > 60 Est GFR (Non-Af Amer) > 60 Random Glucose 155 H Calcium 7.9 L Total Bilirubin 2.0 H AST 28 ALT 50 Alkaline Phosphatase 67 Total Protein 5.7 L Albumin 2.8 L Globulin 2.9 Albumin/Globulin Ratio 0.9 L Assessment & Plan - Assessment and Plan (Free Text) Assessment: Ms Murrieta has metastatic breast cancer now to the brain. We would concur that she would benefit from whole brain radiation therapy. We spoke about the risks and benefits of radiation therapy. Informed consent was obtained. We spoke to her son as well. We will schedule her for a simulation session and begin treatment as soon as possible.
--- NOTE | 2018-03-01 12:53 | CP.PCM.PN ---
Subjective - Date & Time of Evaluation Date of Evaluation: 03/01/18 Time of Evaluation: 09:30 - Subjective Subjective: clinically same Objective - Vital Signs/Intake and Output Vital Signs (last 24 hours): Temp Pulse Resp BP Pulse Ox 98.4 F 92 H 18 158/94 H 97 03/01/18 07:00 03/01/18 07:00 03/01/18 07:00 03/01/18 07:00 03/01/18 07:00 - Medications Medications: Current Medications Dexamethasone (Decadron Inj) 8 mg IV Q8 [facility] Last Admin: 03/01/18 06:46 Dose: 8 mg Enoxaparin Sodium (Lovenox) 40 mg SC DAILY [facility] Last Admin: 03/01/18 09:38 Dose: 40 mg Guaifenesin (Robitussin) 100 mg PO BID PRN PRN Reason: Cough Last Admin: 03/01/18 09:38 Dose: 100 mg Moxifloxacin HCl (Avelox Iv 400mg/250ml Ns) 400 mg in 250 mls @ 167 mls/hr IVPB Q24H [facility]; Protocol Last Admin: 02/28/18 17:57 Dose: 167 mls/hr Mupirocin (Bactroban Ointment) 0 gm TOP BID [facility] Last Admin: 03/01/18 09:38 Dose: 1 applic Nitroglycerin (Nitro-Bid 2% Oint) 1 ea TOP Q6H PRN PRN Reason: Systolic Blood Pressure Last Admin: 03/01/18 09:38 Dose: 1 ea Pantoprazole Sodium (Protonix Ec Tab) 40 mg PO DAILY [facility] Last Admin: 03/01/18 09:38 Dose: 40 mg Saliva Substitute (First Magic Mouthwash) 5 ml PO Q4H PRN PRN Reason: MOUTH SORE Last Admin: 03/01/18 09:38 Dose: 5 ml - Labs Labs: 03/01/18 07:22 03/01/18 07:22 - Constitutional Appears: Well - Head Exam Head Exam: ATRAUMATIC, NORMAL INSPECTION, NORMOCEPHALIC - Eye Exam Eye Exam: EOMI, Normal appearance, PERRL Pupil Exam: NORMAL ACCOMODATION, PERRL - ENT Exam ENT Exam: Mucous Membranes Moist, Normal Exam - Neck Exam Neck Exam: Full ROM, Normal Inspection. absent: Lymphadenopathy - Respiratory Exam Respiratory Exam: Decreased Breath Sounds - Cardiovascular Exam Cardiovascular Exam: REGULAR RHYTHM, +S1, +S2 - GI/Abdominal Exam GI & Abdominal Exam: Soft, Diminished Bowel Sounds - Rectal Exam Rectal Exam: Deferred
--- NOTE | 2018-03-01 15:04 | CP.PCM.PN ---
Subjective - Date & Time of Evaluation Date of Evaluation: 03/01/18 Time of Evaluation: 10:25 - Subjective Subjective: Neurology Consultation Follow-Up Note: Attempted to visit Mrs. Murrieta today, however, she had already left to [facility] for a radiation therapy consultation with Dr. Woodard. Patient had a Brain MRI done yesterday which shows brain mets (please see official report). Will attempt to visit and re-eval patient tomorrow. No acute or overnight events per chart review and nursing staff. Objective - Vital Signs/Intake and Output Vital Signs (last 24 hours): Temp Pulse Resp BP Pulse Ox 98.1 F 90 20 156/93 H 100 03/01/18 13:00 03/01/18 13:00 03/01/18 13:00 03/01/18 13:00 03/01/18 13:00 - Medications Medications: Current Medications Dexamethasone (Decadron Inj) 8 mg IV Q8 [facility] Last Admin: 03/01/18 14:43 Dose: 8 mg Enoxaparin Sodium (Lovenox) 40 mg SC DAILY [facility] Last Admin: 03/01/18 09:38 Dose: 40 mg Guaifenesin (Robitussin) 100 mg PO BID PRN PRN Reason: Cough Last Admin: 03/01/18 09:38 Dose: 100 mg Moxifloxacin HCl (Avelox Iv 400mg/250ml Ns) 400 mg in 250 mls @ 167 mls/hr IVPB Q24H [facility]; Protocol Last Admin: 02/28/18 17:57 Dose: 167 mls/hr Mupirocin (Bactroban Ointment) 0 gm TOP BID [facility] Last Admin: 03/01/18 09:38 Dose: 1 applic Nitroglycerin (Nitro-Bid 2% Oint) 1 ea TOP Q6H PRN PRN Reason: Systolic Blood Pressure Last Admin: 03/01/18 09:38 Dose: 1 ea Pantoprazole Sodium (Protonix Ec Tab) 40 mg PO DAILY [facility] Last Admin: 03/01/18 09:38 Dose: 40 mg Saliva Substitute (First Magic Mouthwash) 5 ml PO Q4H PRN PRN Reason: MOUTH SORE Last Admin: 03/01/18 09:38 Dose: 5 ml - Labs Labs: 03/01/18 07:22 03/01/18 07:22 - Additional Findings Additional findings: Could not assess patient as she was in [facility] for a radiation therapy consult. Assessment and Plan (1) Brain metastasis Assessment & Plan: Imaging: -MRI Brain with and without contrast (02/28/18): There are multiple metastatic lesions seen scattered throughout the supra and infratentorial compartment as described. -MRI Lumbar Spine (02/28/18): Suspect hemangioma inferior anterior T11 segment which is incompletely visualized. Multilevel degenerative spondylosis most notably affecting the L3-L4 and L2-L3 levels where there is bilateral lateral recess and central canal stenosis as detailed above. -CT Head (02/25/18): no evidence of acute intracranial hemorrhage. Interval ap pearance of new foci of hypodensity in the right frontal, parietal lobes and left cerebellum since the previous study. The possibility of brain lesion should be excluded. Mild sinuses mucosal disease. -Mrs. Murrieta has confirmed metastatic disease to brain on the MRI. -She is currently undergoing an evaluation for radiation therapy at [facility] with Dr. Woodard. -Oncology management per primary team, oncologist, and radiation oncologist. -Continue PT for ambulation and transfers. -Continue fall precautions. -Please notify neuro team of acute changes in condition. Case discussed with Dr. Fleming. Thank you for allowing us to participate in this patient's care. Status: Acute (2) Frequent falls Assessment & Plan: -Mrs. Murrieta has confirmed metastatic disease to brain on the MRI. -Her falls, unsteadiness, and lower extremity weakness is secondary to her brain mets. -Today, she is undergoing an evaluation for radiation therapy at [facility] with Dr. Woodadr. -Oncology management per primary team, oncologist, and radiation oncologist. -Continue PT for ambulation and transfers. -Continue fall precautions. -Please notify neuro team of acute changes in condition. Case discussed with Dr. Fleming. Status: Acute
[2018-03-01] MEDS: Moxifloxacin IV 400mg/250ml NS 400 MG/250 ML BAG IVPB SCH (17:35)
--- NOTE | 2018-03-01 21:16 | CP.PCM.PN ---
Subjective - Date & Time of Evaluation Date of Evaluation: 03/01/18 Time of Evaluation: 18:00 - Subjective Subjective: No complaints, started WBRT Objective - Vital Signs/Intake and Output Vital Signs (last 24 hours): Temp Pulse Resp BP Pulse Ox 98.0 F 93 H 18 152/87 H 100 03/01/18 15:00 03/01/18 15:00 03/01/18 15:00 03/01/18 15:00 03/01/18 15:00 - Medications Medications: Current Medications Dexamethasone (Decadron Inj) 8 mg IV Q8 [facility] Last Admin: 03/01/18 14:43 Dose: 8 mg Enoxaparin Sodium (Lovenox) 40 mg SC DAILY [facility] Last Admin: 03/01/18 09:38 Dose: 40 mg Guaifenesin (Robitussin) 100 mg PO BID PRN PRN Reason: Cough Last Admin: 03/01/18 09:38 Dose: 100 mg Moxifloxacin HCl (Avelox Iv 400mg/250ml Ns) 400 mg in 250 mls @ 167 mls/hr IVPB Q24H [facility]; Protocol Last Admin: 03/01/18 17:35 Dose: 167 mls/hr Mupirocin (Bactroban Ointment) 0 gm TOP BID [facility] Last Admin: 03/01/18 17:40 Dose: 1 applic Nitroglycerin (Nitro-Bid 2% Oint) 1 ea TOP Q6H PRN PRN Reason: Systolic Blood Pressure Last Admin: 03/01/18 09:38 Dose: 1 ea Pantoprazole Sodium (Protonix Ec Tab) 40 mg PO DAILY [facility] Last Admin: 03/01/18 09:38 Dose: 40 mg Saliva Substitute (First Magic Mouthwash) 5 ml PO Q4H PRN PRN Reason: MOUTH SORE Last Admin: 03/01/18 17:39 Dose: 5 ml - Labs Labs: 03/01/18 07:22 03/01/18 07:22 - Head Exam Head Exam: ATRAUMATIC - Eye Exam Eye Exam: Normal appearance - ENT Exam ENT Exam: Mucous Membranes Dry - Respiratory Exam Respiratory Exam: NORMAL BREATHING PATTERN - Cardiovascular Exam Cardiovascular Exam: +S1, +S2 - GI/Abdominal Exam GI & Abdominal Exam: Normal Bowel Sounds - Extremities Exam Extremities Exam: Pedal Edema Assessment and Plan (1) Brain metastasis Assessment & Plan: from breast cancer on WBRT at [place] Status: Acute (2) Pancytopenia Assessment & Plan: secondary to chemotherapy growth factor support transfusion support Status: Acute (3) Breast cancer Assessment & Plan: stage IV on WBRT outpatient chemotherapy Status: Acute
[2018-03-02] MEDS: Dexamethasone 4 mg/1 ml IV SCH ×3 (05:34→21:37)
[2018-03-02 08:08] LABS: BASO % 0.3 % (0.0-2.0); HEMOGLOBIN 7.7 g/dL (11.0-16.0); LYMPH # 0.8 K/uL (1.0-4.3); LYMPH % 17.5 % (20.0-40.0); MEAN CORPUSCULAR HEMOGLOBIN 23.8 pg (27.0-31.0); MEAN CORPUSCULAR HGB CONC 32.1 g/dL (33.0-37.0); MEAN PLATELET VOLUME 9.5 fL (7.2-11.7); MONO # 0.6 K/uL (0.0-0.8); NEUT # 3.3 K/uL (1.8-7.0); NEUT % 69.2 % (50.0-75.0); NRBC % 0.5 % (0.0-2.0); RBC 3.22 Mil/uL (3.80-5.20); RED CELL DISTRIBUTION WIDTH 17.6 % (11.5-14.5); WHITE BLOOD COUNT 4.7 K/uL (4.8-10.8)
[2018-03-02 08:21] LABS: ALB/GLOB RATIO 1.1 (1.0-2.1); ALBUMIN 2.7 g/dL (3.5-5.0); ALT/SGPT 57 U/L (9-52); AST/SGOT 40 U/L (14-36); BLOOD UREA NITROGEN 24 mg/dL (7-17); CALCIUM 7.4 mg/dl (8.6-10.4); GFR NON-AFRICAN AMERICAN > 60
[2018-03-02] MEDS: guaiFENesin 100 mg/5 ml Syrup UD PO PRN (10:15)
[2018-03-02] MEDS: Pantoprazole 40 mg EC Tab PO SCH (10:15)
[2018-03-02] MEDS: Mag&Al/Simet/Diphen/Lido 237 ML KIT PO PRN ×2 (10:15→17:24)
[2018-03-02] MEDS: Enoxaparin 40 mg Syringe SC SCH (10:15)
--- NOTE | 2018-03-02 10:55 | CP.PCM.PN ---
Subjective - Date & Time of Evaluation Date of Evaluation: 03/02/18 Time of Evaluation: 10:55 - Subjective Subjective: Neurology Consultation Follow-Up Note: Mrs. Murrieta was evaluated this morning at bedside. Today she admits to feeling fatigued and generally weak compared to earlier this week. She was evaluated at [facility] yesterday for radiation, received her first treatment then, and had her second treatment at [place] this morning. She admits that her diplopia and difficulty speaking have resolved. She is also notably short of br eath during interview. Denies headache, dizziness, visual changes, chest pain, nausea/vomiting. No acute overnight changes in condition per nursing staff. Objective - Vital Signs/Intake and Output Vital Signs (last 24 hours): Temp Pulse Resp BP Pulse Ox 97.9 F 89 20 147/90 97 03/02/18 09:40 03/02/18 09:40 03/02/18 09:40 03/02/18 09:40 03/02/18 09:40 Intake and Output: 03/02/18 03/02/18 06:59 18:59 Intake Total 350 Output Total 400 Balance -50 - Medications Medications: Current Medications Albuterol/Ipratropium (Duoneb 3 Mg/0.5 Mg (3 Ml) Ud) 3 ml INH RQ6 [facility] Dexamethasone (Decadron Inj) 8 mg IV Q8 [facility] Stop: 03/03/18 11:00 Last Admin: 03/02/18 05:34 Dose: 8 mg Enoxaparin Sodium (Lovenox) 40 mg SC DAILY [facility] Last Admin: 03/02/18 10:15 Dose: 40 mg Guaifenesin (Robitussin) 100 mg PO BID PRN PRN Reason: Cough Last Admin: 03/02/18 10:15 Dose: 100 mg Moxifloxacin HCl (Avelox Iv 400mg/250ml Ns) 400 mg in 250 mls @ 167 mls/hr IVPB Q24H [facility]; Protocol Last Admin: 03/01/18 17:35 Dose: 167 mls/hr Mupirocin (Bactroban Ointment) 0 gm TOP BID [facility] Last Admin: 03/02/18 10:16 Dose: 1 applic Nitroglycerin (Nitro-Bid 2% Oint) 1 ea TOP Q6H PRN PRN Reason: Systolic Blood Pressure Last Admin: 03/01/18 09:38 Dose: 1 ea Pantoprazole Sodium (Protonix Ec Tab) 40 mg PO DAILY [facility] Last Admin: 03/02/18 10:15 Dose: 40 mg Saliva Substitute (First Magic Mouthwash) 5 ml PO Q4H PRN PRN Reason: MOUTH SORE Last Admin: 03/02/18 10:15 Dose: 5 ml - Labs Labs: 03/02/18 07:44 03/02/18 07:44 - Constitutional Appears: Non-toxic, Other (appears tired and fatigued; is short of breath during exam) - Head Exam Head Exam: ATRAUMATIC, NORMAL INSPECTION, NORMOCEPHALIC - Eye Exam Eye Exam: EOMI, Normal appearance, PERRL Pupil Exam: NORMAL ACCOMODATION, PERRL - ENT Exam ENT Exam: Mucous Membranes Moist - Neck Exam Neck Exam: Full ROM - Respiratory Exam Respiratory Exam: Wheezes (noted on ascaultation ) - Extremities Exam Extremities Exam: Full ROM (decreased ROM 2/2 feeling weak and fatigued today). absent: Pedal Edema - Neurological Exam Neurological Exam: Alert, Awake, CN II-XII Intact, Oriented x3 Neuro motor strength exam: Left Upper Extremity: 4 (2/2 old surgery to left arm; chronic), Right Upper Extremity: 5, Left Lower Extremity: 4, Right Lower Extremity: 4 Additional comments: RLE and LLE weakness noted; sensation is equal and intact to face and BUE however is diminished on the LLE compared to the RLE. She did have unequal sensation when she first came in. Reflexes are brisk bilaterally; gait could not be assessed due to the patient's lower extremity weakness and fatigue. - Psychiatric Exam Psychiatric exam: Normal Affect, Normal Mood - Skin Skin Exam: Normal Color Assessment and Plan (1) Brain metastasis Assessment & Plan: Imaging: -MRI Brain with and without contrast (02/28/18): There are multiple metastatic lesions seen scattered throughout the supra and infratentorial compartment as described. -MRI Lumbar Spine (02/28/18): Suspect hemangioma inferior anterior T11 segment which is incompletely visualized. Multilevel degenerative spondylosis most notably affecting the L3-L4 and L2-L3 levels where there is bilateral lateral recess and central canal stenosis as detailed above. -CT Head (02/25/18): no evidence of acute intracranial hemorrhage. Interval appearance of new foci of hypodensity in the right frontal, parietal lobes and left cerebellum since the previous study. The possibility of brain lesion should be excluded. Mild sinuses mucosal disease. -Mrs. Murrieta has confirmed metastatic disease to brain on the MRI. -Started Decadron 8mg IV Q8 hours on 02/28/18---will start tapering off tomorrow, 03/03/18. -Starting 03/03/18 morning, Decadron 6 mg IV Q12 x2 days (last day will be 03/05/18). -We recommend Decadron 6 mg IV daily after 03/05/18 for 2 days. -She is currently undergoing an evaluation for radiation therapy at [facility] with Dr. Woodard---had second treatment this morning. -Oncology management per primary team, oncologist, and radiation oncologist. -Continue PT. -Continue fall precautions. -Discussed with nurse Perez and BRAN Bundy on 5 tower patient's shortness of breath and recommend duoneb prn to be ordered with first treatment now. -Please notify neuro team of acute changes in condition. Case discussed with Dr. Fleming. Status: Acute (2) Frequent falls Assessment & Plan: -Mrs. Murrieta has confirmed metastatic disease to brain on the MRI. -Her falls, unsteadiness, and lower extremity weakness is secondary to her brain mets. -She has begun radiation therapy at [facility] with Dr. Woodard--second treatment completed this morning. -Oncology management per primary team, oncologist, and radiation oncologist. -Continue PT for ambulation and transfers. -Continue fall precautions. -Please notify neuro team of acute changes in condition. Case discussed with Dr. Fleming. Status: Acute
[2018-03-02] MEDS: Nitroglycerin 2% Ointment Foilpak UD TOP PRN ×2 (11:11→17:24)
[2018-03-02] MEDS: Albuterol-Ipratrop 3 mg / 0.5 (3 ml) UD INH SCH ×2 (14:01→19:37)
[2018-03-02] MEDS: Moxifloxacin IV 400mg/250ml NS 400 MG/250 ML BAG IVPB SCH (17:20)
--- NOTE | 2018-03-02 22:03 | CP.PCM.PN ---
Subjective - Date & Time of Evaluation Date of Evaluation: 03/02/18 Time of Evaluation: 08:40 - Subjective Subjective: clinically same Objective - Vital Signs/Intake and Output Vital Signs (last 24 hours): Temp Pulse Resp BP Pulse Ox 98.2 F 98 H 18 166/91 H 100 03/02/18 15:00 03/02/18 19:40 03/02/18 15:00 03/02/18 15:00 03/02/18 15:00 - Medications Medications: Current Medications Albuterol/Ipratropium (Duoneb 3 Mg/0.5 Mg (3 Ml) Ud) 3 ml INH RQ6 [facility] Last Admin: 03/02/18 19:37 Dose: 3 ml Dexamethasone (Decadron Inj) 8 mg IV Q8 [facility] Stop: 03/03/18 05:00 Last Admin: 03/02/18 21:37 Dose: 8 mg Dexamethasone (Decadron Inj) 6 mg IVP Q12H [facility] Stop: 03/05/18 10:01 Enoxaparin Sodium (Lovenox) 40 mg SC DAILY [facility] Last Admin: 03/02/18 10:15 Dose: 40 mg Guaifenesin (Robitussin) 100 mg PO BID PRN PRN Reason: Cough Last Admin: 03/02/18 10:15 Dose: 100 mg Moxifloxacin HCl (Avelox Iv 400mg/250ml Ns) 400 mg in 250 mls @ 167 mls/hr IVPB Q24H [facility]; Protocol Last Admin: 03/02/18 17:20 Dose: 167 mls/hr Mupirocin (Bactroban Ointment) 0 gm TOP BID [facility] Last Admin: 03/02/18 17:26 Dose: 1 applic Nitroglycerin (Nitro-Bid 2% Oint) 1 ea TOP Q6H PRN PRN Reason: Systolic Blood Pressure Last Admin: 03/02/18 17:24 Dose: 1 ea Pantoprazole Sodium (Protonix Ec Tab) 40 mg PO DAILY [facility] Last Admin: 03/02/18 10:15 Dose: 40 mg Saliva Substitute (First Magic Mouthwash) 5 ml PO Q4H PRN PRN Reason: MOUTH SORE Last Admin: 03/02/18 17:24 Dose: 5 ml - Labs Labs: 03/02/18 07:44 03/02/18 07:44 - Constitutional Appears: Well - Head Exam Head Exam: ATRAUMATIC, NORMAL INSPECTION, NORMOCEPHALIC - Eye Exam Eye Exam: EOMI, Normal appearance, PERRL Pupil Exam: NORMAL ACCOMODATION, PERRL - ENT Exam ENT Exam: Mucous Membranes Moist, Normal Exam - Neck Exam Neck Exam: Full ROM, Normal Inspection. absent: Lymphadenopathy - Respiratory Exam Respiratory Exam: Decreased Breath Sounds - Cardiovascular Exam Cardiovascular Exam: REGULAR RHYTHM, +S1, +S2 - GI/Abdominal Exam GI & Abdominal Exam: Soft, Diminished Bowel Sounds - Rectal Exam Rectal Exam: Deferred
[2018-03-03] MEDS: Albuterol-Ipratrop 3 mg / 0.5 (3 ml) UD INH SCH ×4 (01:17→20:01)
[2018-03-03 07:51] LABS: BASO % 0.3 % (0.0-2.0); EOS % 0.1 % (0.0-4.0); HEMOGLOBIN 7.7 g/dL (11.0-16.0); LYMPH # 0.8 K/uL (1.0-4.3); LYMPH % 9.3 % (20.0-40.0); MEAN CELL VOLUME 73.7 fL (81.0-99.0); MEAN CORPUSCULAR HEMOGLOBIN 24.5 pg (27.0-31.0); MEAN CORPUSCULAR HGB CONC 33.2 g/dL (33.0-37.0); MONO # 0.8 K/uL (0.0-0.8); MONO % 8.6 % (0.0-10.0); NEUT # 7.3 K/uL (1.8-7.0); NEUT % 81.7 % (50.0-75.0); NRBC % 0.4 % (0.0-2.0); PLATELET COUNT 61 K/uL (130-400); RBC 3.16 Mil/uL (3.80-5.20); RED CELL DISTRIBUTION WIDTH 17.6 % (11.5-14.5)
[2018-03-03 08:45] LABS: ALB/GLOB RATIO 1.1 (1.0-2.1); ALBUMIN 2.8 g/dL (3.5-5.0); ALT/SGPT 53 U/L (9-52); AST/SGOT 22 U/L (14-36); BLOOD UREA NITROGEN 23 mg/dL (7-17); CALCIUM 7.3 mg/dl (8.6-10.4); GFR NON-AFRICAN AMERICAN > 60
[2018-03-03 09:28] LABS: ANISOCYTOSIS SLIGHT; BANDS 10 % (0-2); HYPOCHROMIC MODERATE; LYMPHOCYTE 13 % (20-40); METAMYELOCYTE 2 % (0-0); MONOCYTE 24 % (0-10); MYELOCYTE 9 % (0-0); NEUTROPHIL 42 % (50-75); NUCLEATED RED BLOOD CELL 6 % (0-0); PLATELET ESTIMATE DECREASED (NORMAL); POIKILOCYTOSIS SLIGHT; TOTAL CELLS COUNTED 100
[2018-03-03 09:29] LABS: BURR CELLS SLIGHT; MICROCYTOSIS SLIGHT; OVALOCYTES SLIGHT; POLYCHROMIC SLIGHT; TEARDROP CELLS SLIGHT
[2018-03-03 09:30] LABS: ACANTHOCYTES SLIGHT
[2018-03-03] MEDS ORDERED: Dexamethasone 6 MG in Sodium Chloride 0.9% 50 ML IV SCH (10:00)
[2018-03-03] MEDS: Dexamethasone 4 mg/1 ml IVP SCH ×2 (10:51→21:57)
[2018-03-03] MEDS: guaiFENesin 100 mg/5 ml Syrup UD PO PRN (10:51)
[2018-03-03] MEDS: Nitroglycerin 2% Ointment Foilpak UD TOP PRN ×2 (10:52→16:26)
[2018-03-03] MEDS: Enoxaparin 40 mg Syringe SC SCH (10:52)
[2018-03-03] MEDS: Pantoprazole 40 mg EC Tab PO SCH (10:53)
[2018-03-03] MEDS: Oxycodone/Acetaminophen 5/325 mg Tab PO PRN (11:45)
--- NOTE | 2018-03-03 12:40 | CP.PCM.PN ---
Subjective - Date & Time of Evaluation Date of Evaluation: 03/03/18 Time of Evaluation: 11:00 - Subjective Subjective: Neurology Consultation Follow-Up Note: Mrs. Murrieta was evaluated this morning at bedside. She admits to still feeling fatigued and generally weak compared to earlier this week. This morning she completed her 3rd radiation treatment at [facility]. She is complaining of pain to the right leg today and attributes it to being in bed for a long period of time. She is eager to work with PT today and get OOB. She is still slightly short of breath during interview. Denies headache, dizziness, visual changes/diplopia, difficulty speaking, chest pain, nausea/vomiting. No acute overnight changes in condition per nursing staff. Objective - Vital Signs/Intake and Output Vital Signs (last 24 hours): Temp Pulse Resp BP Pulse Ox 98 F 91 H 21 150/82 96 03/03/18 08:04 03/03/18 08:04 03/03/18 08:04 03/03/18 08:04 03/03/18 08:04 - Medications Medications: Current Medications Albuterol/Ipratropium (Duoneb 3 Mg/0.5 Mg (3 Ml) Ud) 3 ml INH RQ6 [facility] Last Admin: 03/03/18 07:36 Dose: 3 ml Dexamethasone (Decadron Inj) 6 mg IVP Q12H [facility] Stop: 03/05/18 10:01 Last Admin: 03/03/18 10:51 Dose: 6 mg Guaifenesin (Robitussin) 100 mg PO BID PRN PRN Reason: Cough Last Admin: 03/03/18 10:51 Dose: 100 mg Moxifloxacin HCl (Avelox Iv 400mg/250ml Ns) 400 mg in 250 mls @ 167 mls/hr IVPB Q24H [facility]; Protocol Last Admin: 03/02/18 17:20 Dose: 167 mls/hr Mupirocin (Bactroban Ointment) 0 gm TOP BID [facility] Last Admin: 03/03/18 10:53 Dose: 1 applic Nitroglycerin (Nitro-Bid 2% Oint) 1 ea TOP Q6H PRN PRN Reason: Systolic Blood Pressure Last Admin: 03/02/18 17:24 Dose: 1 ea Oxycodone/Acetaminophen (Percocet 5/325 Mg Tab) 1 tab PO Q6H PRN PRN Reason: Pain, moderate (4-7) Stop: 03/06/18 11:22 Last Admin: 03/03/18 11:45 Dose: 1 tab Pantoprazole Sodium (Protonix Ec Tab) 40 mg PO DAILY [facility] Last Admin: 03/03/18 10:53 Dose: 40 mg Saliva Substitute (First Magic Mouthwash) 5 ml PO Q4H PRN PRN Reason: MOUTH SORE Last Admin: 03/02/18 17:24 Dose: 5 ml - Labs Labs: 03/03/18 07:42 03/03/18 07:42 - Constitutional Appears: Well, Non-toxic, No Acute Distress (appears in pain during interview and exam) - Head Exam Head Exam: ATRAUMATIC, NORMAL INSPECTION, NORMOCEPHALIC - Eye Exam Eye Exam: EOMI, Normal appearance, PERRL Pupil Exam: NORMAL ACCOMODATION, PERRL - ENT Exam ENT Exam: Mucous Membranes Moist - Neck Exam Neck Exam: Full ROM - Respiratory Exam Additional comments: slight SOB noted; O2 via nc applied by [employer] - Extremities Exam Extremities Exam: absent: Calf Tenderness, Pedal Edema, Tenderness Additional comments: FROM noted to BUE and LLE; RLE limited ROM 2/2 pain; no calf tenderness, neg Lenora's sign; +pulses BLE equal and strong; - Neurological Exam Neurological Exam: Alert, Awake, CN II-XII Intact, Oriented x3 Neuro motor strength exam: Left Upper Extremity: 5, Right Upper Extremity: 5, Left Lower Extremity: 4, Right Lower Extremity: 3 Additional comments: Sensation intact and equal BLE and BUE today; reflexes brisk bilaterally. Strength to RLE 3/5 compared to yesterday and compared to LLE---may be due to patient's pain to that leg. Gait not assessed however PT notes reviewed. - Psychiatric Exam Psychiatric exam: Normal Affect, Normal Mood - Skin Skin Exam: Normal Color Assessment and Plan (1) Brain metastasis Assessment & Plan: Imaging: -MRI Brain with and without contrast (02/28/18): There are multiple metastatic lesions seen scattered throughout the supra and infratentorial compartment as described. -MRI Lumbar Spine (02/28/18): Suspect hemangioma inferior anterior T11 segment which is incompletely visualized. Multilevel degenerative spondylosis most notably affecting the L3-L4 and L2-L3 levels where there is bilateral lateral recess and central canal stenosis as detailed above. -CT Head (02/25/18): no evidence of acute intracranial hemorrhage. Interval appearance of new foci of hypodensity in the right frontal, parietal lobes and left cerebellum since the previous study. The possibility of brain lesion should be excluded. Mild sinuses mucosal disease. -Mrs. Murrieta has confirmed metastatic disease to brain on the MRI. -Started Decadron 8mg IV Q8 hours on 02/28/18---will start tapering off tomorrow, 03/03/18. -Starting 03/03/18 morning, Decadron 6 mg IV Q12 x2 days (last day will be 03/05/18). -We recommend Decadron 6 mg IV daily after 03/05/18 for 2 days or per primary team. -Oncology management per primary team, oncologist, and radiation oncologist--to day she completed her 3rd radiation treatment. -Continue PT/OT -Continue fall precautions. -If shortness of breath continues, pulmonary consult should be considered. Also consider CXR or CT Chest. Neuro team will defer to primary team. -Please notify neuro team of acute changes in condition. We will sign off at this time. Reconsult prn. May follow Decadron recommendations noted above. Case discussed with Dr. Fleming. Thank you for allowing us to participate in this patient's care. Status: Acute (2) Frequent falls Assessment & Plan: -Mrs. Murrieta has confirmed metastatic disease to brain on the MRI. -Her falls, unsteadiness, and lower extremity weakness is secondary to her brain mets. -She has begun radiation therapy at [facility] with Dr. Woodard--3rd treatment completed this morning. -Oncology management per primary team, oncologist, and radiation oncologist. -Continue PT for ambulation and transfers. -Continue OT -OOB to chair as much as possible. -Continue fall precautions. -Please notify neuro team of acute changes in condition. Case discussed with Dr. Fleming. Status: Acute
[2018-03-03] MEDS: Moxifloxacin IV 400mg/250ml NS 400 MG/250 ML BAG IVPB SCH (17:13)
--- NOTE | 2018-03-03 21:37 | CP.PCM.PN ---
Subjective - Date & Time of Evaluation Date of Evaluation: 03/02/18 Time of Evaluation: 17:00 - Subjective Subjective: No complaints. Objective - Vital Signs/Intake and Output Vital Signs (last 24 hours): Temp Pulse Resp BP Pulse Ox 97.8 F 98 H 18 158/104 H 100 03/03/18 15:00 03/03/18 15:00 03/03/18 15:00 03/03/18 15:00 03/03/18 15:00 Intake and Output: 03/03/18 03/04/18 18:59 06:59 Intake Total 400 Balance 400 - Medications Medications: Current Medications Albuterol/Ipratropium (Duoneb 3 Mg/0.5 Mg (3 Ml) Ud) 3 ml INH RQ6 [facility] Last Admin: 03/03/18 20:01 Dose: 3 ml Dexamethasone (Decadron Inj) 6 mg IVP Q12H [facility] Stop: 03/05/18 10:01 Last Admin: 03/03/18 10:51 Dose: 6 mg Guaifenesin (Robitussin) 100 mg PO BID PRN PRN Reason: Cough Last Admin: 03/03/18 10:51 Dose: 100 mg Moxifloxacin HCl (Avelox Iv 400mg/250ml Ns) 400 mg in 250 mls @ 167 mls/hr IVPB Q24H [facility]; Protocol Last Admin: 03/03/18 17:13 Dose: 167 mls/hr Mupirocin (Bactroban Ointment) 0 gm TOP BID [facility] Last Admin: 03/03/18 18:00 Dose: 1 applic Nitroglycerin (Nitro-Bid 2% Oint) 1 ea TOP Q6H PRN PRN Reason: Systolic Blood Pressure Last Admin: 03/03/18 16:26 Dose: 1 ea Oxycodone/Acetaminophen (Percocet 5/325 Mg Tab) 1 tab PO Q6H PRN PRN Reason: Pain, moderate (4-7) Stop: 03/06/18 11:22 Last Admin: 03/03/18 11:45 Dose: 1 tab Pantoprazole Sodium (Protonix Ec Tab) 40 mg PO DAILY [facility] Last Admin: 03/03/18 10:53 Dose: 40 mg Saliva Substitute (First Magic Mouthwash) 5 ml PO Q4H PRN PRN Reason: MOUTH SORE Last Admin: 03/02/18 17:24 Dose: 5 ml - Labs Labs: 03/03/18 07:42 03/03/18 07:42 - Head Exam Head Exam: ATRAUMATIC - Eye Exam Eye Exam: Normal appearance - ENT Exam ENT Exam: Mucous Membranes Dry - Respiratory Exam Respiratory Exam: NORMAL BREATHING PATTERN - Cardiovascular Exam Cardiovascular Exam: +S1, +S2 - GI/Abdominal Exam GI & Abdominal Exam: Normal Bowel Sounds Assessment and Plan (1) Brain metastasis Assessment & Plan: from breast cancer on WBRT at [place] Status: Acute (2) Pancytopenia Assessment & Plan: secondary to chemotherapy growth factor support transfusion support Status: Acute (3) Breast cancer Assessment & Plan: stage IV on WBRT outpatient chemotherapy Status: Acute
--- NOTE | 2018-03-03 21:39 | CP.PCM.PN ---
Subjective - Date & Time of Evaluation Date of Evaluation: 03/03/18 Time of Evaluation: 19:00 - Subjective Subjective: Feeling better Objective - Vital Signs/Intake and Output Vital Signs (last 24 hours): Temp Pulse Resp BP Pulse Ox 97.8 F 98 H 18 158/104 H 100 03/03/18 15:00 03/03/18 15:00 03/03/18 15:00 03/03/18 15:00 03/03/18 15:00 Intake and Output: 03/03/18 03/04/18 18:59 06:59 Intake Total 400 Balance 400 - Medications Medications: Current Medications Albuterol/Ipratropium (Duoneb 3 Mg/0.5 Mg (3 Ml) Ud) 3 ml INH RQ6 [facility] Last Admin: 03/03/18 20:01 Dose: 3 ml Dexamethasone (Decadron Inj) 6 mg IVP Q12H [facility] Stop: 03/05/18 10:01 Last Admin: 03/03/18 10:51 Dose: 6 mg Guaifenesin (Robitussin) 100 mg PO BID PRN PRN Reason: Cough Last Admin: 03/03/18 10:51 Dose: 100 mg Moxifloxacin HCl (Avelox Iv 400mg/250ml Ns) 400 mg in 250 mls @ 167 mls/hr IVPB Q24H [facility]; Protocol Last Admin: 03/03/18 17:13 Dose: 167 mls/hr Mupirocin (Bactroban Ointment) 0 gm TOP BID [facility] Last Admin: 03/03/18 18:00 Dose: 1 applic Nitroglycerin (Nitro-Bid 2% Oint) 1 ea TOP Q6H PRN PRN Reason: Systolic Blood Pressure Last Admin: 03/03/18 16:26 Dose: 1 ea Oxycodone/Acetaminophen (Percocet 5/325 Mg Tab) 1 tab PO Q6H PRN PRN Reason: Pain, moderate (4-7) Stop: 03/06/18 11:22 Last Admin: 03/03/18 11:45 Dose: 1 tab Pantoprazole Sodium (Protonix Ec Tab) 40 mg PO DAILY [facility] Last Admin: 03/03/18 10:53 Dose: 40 mg Saliva Substitute (First Magic Mouthwash) 5 ml PO Q4H PRN PRN Reason: MOUTH SORE Last Admin: 03/02/18 17:24 Dose: 5 ml - Labs Labs: 03/03/18 07:42 03/03/18 07:42 - Head Exam Head Exam: ATRAUMATIC - Eye Exam Eye Exam: Normal appearance - ENT Exam ENT Exam: Mucous Membranes Dry - Respiratory Exam Respiratory Exam: NORMAL BREATHING PATTERN - Cardiovascular Exam Cardiovascular Exam: +S1, +S2 - GI/Abdominal Exam GI & Abdominal Exam: Normal Bowel Sounds Assessment and Plan (1) Brain metastasis Assessment & Plan: from breast cancer on WBRT at [place] Status: Acute (2) Pancytopenia Assessment & Plan: secondary to chemotherapy growth factor support transfusion support Status: Acute (3) Breast cancer Assessment & Plan: stage IV on WBRT outpatient chemotherapy Status: Acute
--- NOTE | 2018-03-03 21:40 | CP.PCM.PN ---
Subjective - Date & Time of Evaluation Date of Evaluation: 03/03/18 Time of Evaluation: 08:40 - Subjective Subjective: clinically same Objective - Vital Signs/Intake and Output Vital Signs (last 24 hours): Temp Pulse Resp BP Pulse Ox 97.8 F 98 H 18 158/104 H 100 03/03/18 15:00 03/03/18 15:00 03/03/18 15:00 03/03/18 15:00 03/03/18 15:00 Intake and Output: 03/03/18 03/04/18 18:59 06:59 Intake Total 400 Balance 400 - Medications Medications: Current Medications Albuterol/Ipratropium (Duoneb 3 Mg/0.5 Mg (3 Ml) Ud) 3 ml INH RQ6 [facility] Last Admin: 03/03/18 20:01 Dose: 3 ml Dexamethasone (Decadron Inj) 6 mg IVP Q12H [facility] Stop: 03/05/18 10:01 Last Admin: 03/03/18 10:51 Dose: 6 mg Guaifenesin (Robitussin) 100 mg PO BID PRN PRN Reason: Cough Last Admin: 03/03/18 10:51 Dose: 100 mg Moxifloxacin HCl (Avelox Iv 400mg/250ml Ns) 400 mg in 250 mls @ 167 mls/hr IVPB Q24H [facility]; Protocol Last Admin: 03/03/18 17:13 Dose: 167 mls/hr Mupirocin (Bactroban Ointment) 0 gm TOP BID [facility] Last Admin: 03/03/18 18:00 Dose: 1 applic Nitroglycerin (Nitro-Bid 2% Oint) 1 ea TOP Q6H PRN PRN Reason: Systolic Blood Pressure Last Admin: 03/03/18 16:26 Dose: 1 ea Oxycodone/Acetaminophen (Percocet 5/325 Mg Tab) 1 tab PO Q6H PRN PRN Reason: Pain, moderate (4-7) Stop: 03/06/18 11:22 Last Admin: 03/03/18 11:45 Dose: 1 tab Pantoprazole Sodium (Protonix Ec Tab) 40 mg PO DAILY [facility] Last Admin: 03/03/18 10:53 Dose: 40 mg Saliva Substitute (First Magic Mouthwash) 5 ml PO Q4H PRN PRN Reason: MOUTH SORE Last Admin: 03/02/18 17:24 Dose: 5 ml - Labs Labs: 03/03/18 07:42 03/03/18 07:42 - Constitutional Appears: Well - Head Exam Head Exam: ATRAUMATIC, NORMAL INSPECTION, NORMOCEPHALIC - Eye Exam Eye Exam: EOMI, Normal appearance, PERRL Pupil Exam: NORMAL ACCOMODATION, PERRL - ENT Exam ENT Exam: Mucous Membranes Moist, Normal Exam - Neck Exam Neck Exam: Full ROM, Normal Inspection. absent: Lymphadenopathy - Respiratory Exam Respiratory Exam: Decreased Breath Sounds - Cardiovascular Exam Cardiovascular Exam: REGULAR RHYTHM, +S1, +S2 - GI/Abdominal Exam GI & Abdominal Exam: Soft, Diminished Bowel Sounds - Rectal Exam Rectal Exam: Deferred Assessment and Plan - Assessment and Plan (Free Text) Plan: WBC has gone up Heme on follow-up No radiations IV fluid IV steroid IV Avelox As ordered Patient is out of bed to the chair Status post radiation
[2018-03-04] MEDS: Albuterol-Ipratrop 3 mg / 0.5 (3 ml) UD INH SCH ×4 (01:11→19:59)
[2018-03-04 08:51] LABS: BASO # 0.1 K/uL (0.0-0.2); BASO % 0.4 % (0.0-2.0); HEMOGLOBIN 7.4 g/dL (11.0-16.0); LYMPH % 6.7 % (20.0-40.0); MEAN CELL VOLUME 74.3 fL (81.0-99.0); MEAN CORPUSCULAR HEMOGLOBIN 23.5 pg (27.0-31.0); MEAN CORPUSCULAR HGB CONC 31.6 g/dL (33.0-37.0); MEAN PLATELET VOLUME 10.3 fL (7.2-11.7); MONO # 0.8 K/uL (0.0-0.8); MONO % 5.8 % (0.0-10.0); NEUT # 12.3 K/uL (1.8-7.0); NEUT % 87.1 % (50.0-75.0); PLATELET COUNT 58 K/uL (130-400); RBC 3.14 Mil/uL (3.80-5.20)
[2018-03-04 08:54] LABS: WHITE BLOOD COUNT 14.2 K/uL (4.8-10.8)
[2018-03-04 08:59] LABS: ALB/GLOB RATIO 1.1 (1.0-2.1); ALBUMIN 2.7 g/dL (3.5-5.0); ALT/SGPT 50 U/L (9-52); AST/SGOT 23 U/L (14-36); BLOOD UREA NITROGEN 20 mg/dL (7-17); CALCIUM 7.3 mg/dl (8.6-10.4); GFR NON-AFRICAN AMERICAN > 60
[2018-03-04 09:46] LABS: BANDS 8 % (0-2); LYMPHOCYTE 15 % (20-40); METAMYELOCYTE 5 % (0-0); MONOCYTE 6 % (0-10); MYELOCYTE 9 % (0-0); NEUTROPHIL 55 % (50-75); NUCLEATED RED BLOOD CELL 13 % (0-0); PROMYELOCYTE 2 % (0-0); TOTAL CELLS COUNTED 100
[2018-03-04 09:48] LABS: ANISOCYTOSIS SLIGHT; PLATELET ESTIMATE DECREASED (NORMAL); POIKILOCYTOSIS SLIGHT
[2018-03-04 09:49] LABS: ACANTHOCYTES SLIGHT; BURR CELLS SLIGHT; HYPOCHROMIC SLIGHT; OVALOCYTES SLIGHT; POLYCHROMIC SLIGHT; TARGET CELLS SLIGHT; TEARDROP CELLS SLIGHT
[2018-03-04] MEDS: Dexamethasone 4 mg/1 ml IVP SCH ×2 (10:06→22:30)
[2018-03-04] MEDS: Oxycodone/Acetaminophen 5/325 mg Tab PO PRN (10:07)
[2018-03-04] MEDS: Pantoprazole 40 mg EC Tab PO SCH (10:08)
[2018-03-04] MEDS: Nitroglycerin 2% Ointment Foilpak UD TOP PRN (16:42)
[2018-03-04] MEDS: Moxifloxacin IV 400mg/250ml NS 400 MG/250 ML BAG IVPB SCH (17:02)
--- NOTE | 2018-03-04 20:15 | CP.PCM.PN ---
Subjective - Date & Time of Evaluation Date of Evaluation: 03/04/18 Time of Evaluation: 08:45 - Subjective Subjective: clinically same Objective - Vital Signs/Intake and Output Vital Signs (last 24 hours): Temp Pulse Resp BP Pulse Ox 98.1 F 105 H 20 174/79 H 97 03/04/18 20:10 03/04/18 20:10 03/04/18 20:10 03/04/18 20:10 03/04/18 15:00 Intake and Output: 03/04/18 03/05/18 18:59 06:59 Intake Total 0 Balance 0 - Medications Medications: Current Medications Albuterol/Ipratropium (Duoneb 3 Mg/0.5 Mg (3 Ml) Ud) 3 ml INH RQ6 SARAH Last Admin: 03/04/18 19:59 Dose: 3 ml Dexamethasone (Decadron Inj) 6 mg IVP Q12H SARAH Stop: 03/05/18 10:01 Last Admin: 03/04/18 10:06 Dose: 6 mg Guaifenesin (Robitussin) 100 mg PO BID PRN PRN Reason: Cough Last Admin: 03/03/18 10:51 Dose: 100 mg Moxifloxacin HCl (Avelox Iv 400mg/250ml Ns) 400 mg in 250 mls @ 167 mls/hr IVPB Q24H SARAH; Protocol Last Admin: 03/04/18 17:02 Dose: 167 mls/hr Mupirocin (Bactroban Ointment) 0 gm TOP BID SARAH Last Admin: 03/04/18 17:09 Dose: 1 applic Nitroglycerin (Nitro-Bid 2% Oint) 1 ea TOP Q6H PRN PRN Reason: Systolic Blood Pressure Last Admin: 03/04/18 16:42 Dose: 1 ea Oxycodone/Acetaminophen (Percocet 5/325 Mg Tab) 1 tab PO Q6H PRN PRN Reason: Pain, moderate (4-7) Stop: 03/06/18 11:22 Last Admin: 03/04/18 10:07 Dose: 1 tab Pantoprazole Sodium (Protonix Ec Tab) 40 mg PO DAILY SARAH Last Admin: 03/04/18 10:08 Dose: 40 mg Saliva Substitute (First Magic Mouthwash) 5 ml PO Q4H PRN PRN Reason: MOUTH SORE Last Admin: 03/02/18 17:24 Dose: 5 ml - Labs Labs: 03/04/18 08:33 03/04/18 08:33 - Constitutional Appears: Well - Head Exam Head Exam: ATRAUMATIC, NORMAL INSPECTION, NORMOCEPHALIC - Eye Exam Eye Exam: EOMI, Normal appearance, PERRL Pupil Exam: NORMAL ACCOMODATION, PERRL - ENT Exam ENT Exam: Mucous Membranes Moist, Normal Exam - Neck Exam Neck Exam: Full ROM, Normal Inspection. absent: Lymphadenopathy - Respiratory Exam Respiratory Exam: Decreased Breath Sounds - Cardiovascular Exam Cardiovascular Exam: REGULAR RHYTHM, +S1, +S2 - GI/Abdominal Exam GI & Abdominal Exam: Soft, Diminished Bowel Sounds - Rectal Exam Rectal Exam: Deferred
[2018-03-04] MEDS: Mag&Al/Simet/Diphen/Lido 237 ML KIT PO PRN (22:30)
[2018-03-04] MEDS: guaiFENesin 100 mg/5 ml Syrup UD PO PRN (22:41)
[2018-03-05] MEDS: guaiFENesin 100 mg/5 ml Syrup UD PO PRN (04:06)
[2018-03-05] MEDS: Albuterol-Ipratrop 3 mg / 0.5 (3 ml) UD INH SCH ×3 (08:32→20:40)
[2018-03-05] MEDS: Dexamethasone 4 mg/1 ml IVP SCH (10:13)
[2018-03-05] MEDS: Pantoprazole 40 mg EC Tab PO SCH (10:16)
[2018-03-05 11:23] LABS: BASO # 0.1 K/uL (0.0-0.2); BASO % 0.3 % (0.0-2.0); HEMOGLOBIN 8.8 g/dL (11.0-16.0); LYMPH # 0.9 K/uL (1.0-4.3); LYMPH % 4.5 % (20.0-40.0); MEAN CELL VOLUME 75.9 fL (81.0-99.0); MEAN CORPUSCULAR HEMOGLOBIN 24.4 pg (27.0-31.0); MEAN CORPUSCULAR HGB CONC 32.2 g/dL (33.0-37.0); MONO # 1.2 K/uL (0.0-0.8); MONO % 5.9 % (0.0-10.0); NEUT # 18.3 K/uL (1.8-7.0); NEUT % 89.3 % (50.0-75.0); NRBC % 7.7 % (0.0-2.0); PLATELET COUNT 46 K/uL (130-400); RBC 3.61 Mil/uL (3.80-5.20); RED CELL DISTRIBUTION WIDTH 19.3 % (11.5-14.5); WHITE BLOOD COUNT 20.5 K/uL (4.8-10.8)
[2018-03-05] MEDS: Mag&Al/Simet/Diphen/Lido 237 ML KIT PO PRN (11:23)
[2018-03-05 11:28] LABS: ALB/GLOB RATIO 1.2 (1.0-2.1); ALBUMIN 2.8 g/dL (3.5-5.0); ALT/SGPT 46 U/L (9-52); AST/SGOT 28 U/L (14-36); BLOOD UREA NITROGEN 20 mg/dL (7-17); CALCIUM 7.2 mg/dl (8.6-10.4); GFR NON-AFRICAN AMERICAN > 60
[2018-03-05 12:51] LABS: BANDS 7 % (0-2); LYMPHOCYTE 9 % (20-40); METAMYELOCYTE 7 % (0-0); MONOCYTE 11 % (0-10); MYELOCYTE 5 % (0-0); NEUTROPHIL 61 % (50-75); NUCLEATED RED BLOOD CELL 9 % (0-0); PLATELET ESTIMATE DECREASED (NORMAL); TOTAL CELLS COUNTED 100
[2018-03-05 12:53] LABS: ANISOCYTOSIS MODERATE; HYPOCHROMIC SLIGHT; POIKILOCYTOSIS SLIGHT; POLYCHROMIC SLIGHT; SCHISTOCYTES SLIGHT
[2018-03-05 12:54] LABS: TOXIC GRANULATION PRESENT
[2018-03-05] MEDS: Oxycodone/Acetaminophen 5/325 mg Tab PO PRN (15:42)
[2018-03-05] MEDS: Moxifloxacin IV 400mg/250ml NS 400 MG/250 ML BAG IVPB SCH (17:21)
--- NOTE | 2018-03-05 20:07 | CP.PCM.PN ---
Subjective - Date & Time of Evaluation Date of Evaluation: 03/05/18 Time of Evaluation: 08:15 - Subjective Subjective: clinically same Objective - Vital Signs/Intake and Output Vital Signs (last 24 hours): Temp Pulse Resp BP Pulse Ox 98.3 F 99 H 20 117/76 99 03/05/18 15:00 03/05/18 15:00 03/05/18 15:00 03/05/18 15:00 03/05/18 15:00 Intake and Output: 03/05/18 03/06/18 18:59 06:59 Intake Total 350 Balance 350 - Medications Medications: Current Medications Albuterol/Ipratropium (Duoneb 3 Mg/0.5 Mg (3 Ml) Ud) 3 ml INH RQ6 SARAH Last Admin: 03/05/18 13:25 Dose: 3 ml Guaifenesin (Robitussin) 100 mg PO BID PRN PRN Reason: Cough Last Admin: 03/05/18 04:06 Dose: 100 mg Moxifloxacin HCl (Avelox Iv 400mg/250ml Ns) 400 mg in 250 mls @ 167 mls/hr IVPB Q24H SARAH; Protocol Last Admin: 03/05/18 17:21 Dose: 167 mls/hr Mupirocin (Bactroban Ointment) 0 gm TOP BID SARAH Last Admin: 03/05/18 17:52 Dose: 1 applic Nitroglycerin (Nitro-Bid 2% Oint) 1 ea TOP Q6H PRN PRN Reason: Systolic Blood Pressure Last Admin: 03/04/18 16:42 Dose: 1 ea Oxycodone/Acetaminophen (Percocet 5/325 Mg Tab) 1 tab PO Q6H PRN PRN Reason: Pain, moderate (4-7) Stop: 03/06/18 11:22 Last Admin: 03/05/18 15:42 Dose: 1 tab Pantoprazole Sodium (Protonix Ec Tab) 40 mg PO DAILY SARAH Last Admin: 03/05/18 10:16 Dose: 40 mg Saliva Substitute (First Magic Mouthwash) 5 ml PO Q4H PRN PRN Reason: MOUTH SORE Last Admin: 03/05/18 11:23 Dose: 5 ml - Labs Labs: 03/05/18 11:01 03/05/18 11:01 - Constitutional Appears: Well - Head Exam Head Exam: ATRAUMATIC, NORMAL INSPECTION, NORMOCEPHALIC - Eye Exam Eye Exam: EOMI, Normal appearance, PERRL Pupil Exam: NORMAL ACCOMODATION, PERRL - ENT Exam ENT Exam: Mucous Membranes Moist, Normal Exam - Neck Exam Neck Exam: Full ROM, Normal Inspection. absent: Lymphadenopathy - Respiratory Exam Respiratory Exam: Decreased Breath Sounds - Cardiovascular Exam Cardiovascular Exam: REGULAR RHYTHM, +S1, +S2 - GI/Abdominal Exam GI & Abdominal Exam: Soft, Diminished Bowel Sounds - Rectal Exam Rectal Exam: Deferred
--- NOTE | 2018-03-05 20:35 | CP.PCM.PN ---
Subjective - Date & Time of Evaluation Date of Evaluation: 03/04/18 Time of Evaluation: 12:00 - Subjective Subjective: No complaints. for PRBC transfusion Objective - Vital Signs/Intake and Output Vital Signs (last 24 hours): Temp Pulse Resp BP Pulse Ox 98.3 F 99 H 20 117/76 99 03/05/18 15:00 03/05/18 15:00 03/05/18 15:00 03/05/18 15:00 03/05/18 15:00 Intake and Output: 03/05/18 03/06/18 18:59 06:59 Intake Total 350 Balance 350 - Medications Medications: Current Medications Albuterol/Ipratropium (Duoneb 3 Mg/0.5 Mg (3 Ml) Ud) 3 ml INH RQ6 SARAH Last Admin: 03/05/18 13:25 Dose: 3 ml Guaifenesin (Robitussin) 100 mg PO BID PRN PRN Reason: Cough Last Admin: 03/05/18 04:06 Dose: 100 mg Moxifloxacin HCl (Avelox Iv 400mg/250ml Ns) 400 mg in 250 mls @ 167 mls/hr IVPB Q24H SARAH; Protocol Last Admin: 03/05/18 17:21 Dose: 167 mls/hr Mupirocin (Bactroban Ointment) 0 gm TOP BID SARAH Last Admin: 03/05/18 17:52 Dose: 1 applic Nitroglycerin (Nitro-Bid 2% Oint) 1 ea TOP Q6H PRN PRN Reason: Systolic Blood Pressure Last Admin: 03/04/18 16:42 Dose: 1 ea Oxycodone/Acetaminophen (Percocet 5/325 Mg Tab) 1 tab PO Q6H PRN PRN Reason: Pain, moderate (4-7) Stop: 03/06/18 11:22 Last Admin: 03/05/18 15:42 Dose: 1 tab Pantoprazole Sodium (Protonix Ec Tab) 40 mg PO DAILY SARAH Last Admin: 03/05/18 10:16 Dose: 40 mg Saliva Substitute (First Magic Mouthwash) 5 ml PO Q4H PRN PRN Reason: MOUTH SORE Last Admin: 03/05/18 11:23 Dose: 5 ml - Labs Labs: 03/05/18 11:01 03/05/18 11:01 - Head Exam Head Exam: ATRAUMATIC - Eye Exam Eye Exam: Normal appearance - ENT Exam ENT Exam: Mucous Membranes Dry - Respiratory Exam Respiratory Exam: NORMAL BREATHING PATTERN - Cardiovascular Exam Cardiovascular Exam: +S1, +S2 - GI/Abdominal Exam GI & Abdominal Exam: Normal Bowel Sounds Assessment and Plan (1) Brain metastasis Assessment & Plan: from breast cancer on WBRT at [place] Status: Acute (2) Pancytopenia Assessment & Plan: secondary to chemotherapy growth factor support transfusion support Status: Acute (3) Breast cancer Assessment & Plan: stage IV on WBRT outpatient chemotherapy Status: Acute
--- NOTE | 2018-03-05 20:37 | CP.PCM.PN ---
Subjective - Date & Time of Evaluation Date of Evaluation: 03/05/18 Time of Evaluation: 18:00 - Subjective Subjective: Has pain at left hip wound. Objective - Vital Signs/Intake and Output Vital Signs (last 24 hours): Temp Pulse Resp BP Pulse Ox 98.3 F 99 H 20 117/76 99 03/05/18 15:00 03/05/18 15:00 03/05/18 15:00 03/05/18 15:00 03/05/18 15:00 Intake and Output: 03/05/18 03/06/18 18:59 06:59 Intake Total 350 Balance 350 - Medications Medications: Current Medications Albuterol/Ipratropium (Duoneb 3 Mg/0.5 Mg (3 Ml) Ud) 3 ml INH RQ6 SARAH Last Admin: 03/05/18 13:25 Dose: 3 ml Guaifenesin (Robitussin) 100 mg PO BID PRN PRN Reason: Cough Last Admin: 03/05/18 04:06 Dose: 100 mg Moxifloxacin HCl (Avelox Iv 400mg/250ml Ns) 400 mg in 250 mls @ 167 mls/hr IVPB Q24H SARAH; Protocol Last Admin: 03/05/18 17:21 Dose: 167 mls/hr Mupirocin (Bactroban Ointment) 0 gm TOP BID SARAH Last Admin: 03/05/18 17:52 Dose: 1 applic Nitroglycerin (Nitro-Bid 2% Oint) 1 ea TOP Q6H PRN PRN Reason: Systolic Blood Pressure Last Admin: 03/04/18 16:42 Dose: 1 ea Oxycodone/Acetaminophen (Percocet 5/325 Mg Tab) 1 tab PO Q6H PRN PRN Reason: Pain, moderate (4-7) Stop: 03/06/18 11:22 Last Admin: 03/05/18 15:42 Dose: 1 tab Pantoprazole Sodium (Protonix Ec Tab) 40 mg PO DAILY SARAH Last Admin: 03/05/18 10:16 Dose: 40 mg Saliva Substitute (First Magic Mouthwash) 5 ml PO Q4H PRN PRN Reason: MOUTH SORE Last Admin: 03/05/18 11:23 Dose: 5 ml - Labs Labs: 03/05/18 11:01 03/05/18 11:01 - Head Exam Head Exam: ATRAUMATIC - Eye Exam Eye Exam: Normal appearance - ENT Exam ENT Exam: Mucous Membranes Dry - Respiratory Exam Respiratory Exam: NORMAL BREATHING PATTERN - Cardiovascular Exam Cardiovascular Exam: +S1, +S2 - GI/Abdominal Exam GI & Abdominal Exam: Normal Bowel Sounds Assessment and Plan (1) Brain metastasis Assessment & Plan: from breast cancer on WBRT at [place] Status: Acute (2) Pancytopenia Assessment & Plan: secondary to chemotherapy growth factor support transfusion support Status: Acute (3) Breast cancer Assessment & Plan: stage IV on WBRT outpatient chemotherapy Status: Acute
[2018-03-06] MEDS: Albuterol-Ipratrop 3 mg / 0.5 (3 ml) UD INH SCH ×4 (02:35→21:35)
[2018-03-06] MEDS: guaiFENesin 100 mg/5 ml Syrup UD PO PRN (04:22)
[2018-03-06] MEDS: Pantoprazole 40 mg EC Tab PO SCH (10:12)
--- NOTE | 2018-03-06 12:59 | CP.PCM.PN ---
Subjective - Date & Time of Evaluation Date of Evaluation: 03/06/18 Time of Evaluation: 08:45 - Subjective Subjective: clinically same Objective - Vital Signs/Intake and Output Vital Signs (last 24 hours): Temp Pulse Resp BP Pulse Ox 98.1 F 119 H 18 95/58 L 100 03/06/18 07:37 03/06/18 07:37 03/06/18 07:37 03/06/18 07:37 03/06/18 07:37 Intake and Output: 03/06/18 03/06/18 06:59 18:59 Intake Total 370 Balance 370 - Medications Medications: Current Medications Albuterol/Ipratropium (Duoneb 3 Mg/0.5 Mg (3 Ml) Ud) 3 ml INH RQ6 SARAH Last Admin: 03/06/18 08:31 Dose: 3 ml Guaifenesin (Robitussin) 100 mg PO BID PRN PRN Reason: Cough Last Admin: 03/06/18 04:22 Dose: 100 mg Moxifloxacin HCl (Avelox Iv 400mg/250ml Ns) 400 mg in 250 mls @ 167 mls/hr IVPB Q24H SARAH; Protocol Last Admin: 03/05/18 17:21 Dose: 167 mls/hr Morphine Sulfate (Morphine) 1 mg IVP Q1 PRN PRN Reason: Pain, severe (8-10) Last Admin: 03/06/18 05:02 Dose: 1 mg Mupirocin (Bactroban Ointment) 0 gm TOP BID SARAH Last Admin: 03/06/18 10:14 Dose: 1 applic Nitroglycerin (Nitro-Bid 2% Oint) 1 ea TOP Q6H PRN PRN Reason: Systolic Blood Pressure Last Admin: 03/04/18 16:42 Dose: 1 ea Pantoprazole Sodium (Protonix Ec Tab) 40 mg PO DAILY [facility] Last Admin: 03/06/18 10:12 Dose: 40 mg Saliva Substitute (First Magic Mouthwash) 5 ml PO Q4H PRN PRN Reason: MOUTH SORE Last Admin: 03/05/18 11:23 Dose: 5 ml - Labs Labs: 03/05/18 11:01 03/05/18 11:01 - Constitutional Appears: Well - Head Exam Head Exam: ATRAUMATIC, NORMAL INSPECTION, NORMOCEPHALIC - Eye Exam Eye Exam: EOMI, Normal appearance, PERRL Pupil Exam: NORMAL ACCOMODATION, PERRL - ENT Exam ENT Exam: Mucous Membranes Moist, Normal Exam - Neck Exam Neck Exam: Full ROM, Normal Inspection. absent: Lymphadenopathy - Respiratory Exam Respiratory Exam: Decreased Breath Sounds - Cardiovascular Exam Cardiovascular Exam: REGULAR RHYTHM, +S1, +S2 - GI/Abdominal Exam GI & Abdominal Exam: Soft, Diminished Bowel Sounds - Rectal Exam Rectal Exam: Deferred
[2018-03-06] MEDS: Mag&Al/Simet/Diphen/Lido 237 ML KIT PO PRN (17:49)
--- NOTE | 2018-03-06 19:35 | CP.PCM.PN ---
Subjective - Date & Time of Evaluation Date of Evaluation: 03/06/18 Time of Evaluation: 19:00 - Subjective Subjective: Has some pain at left hip wound Objective - Vital Signs/Intake and Output Vital Signs (last 24 hours): Temp Pulse Resp BP Pulse Ox 98.2 F 108 H 18 119/80 96 03/06/18 16:00 03/06/18 16:19 03/06/18 16:00 03/06/18 16:19 03/06/18 16:00 - Medications Medications: Current Medications Albuterol/Ipratropium (Duoneb 3 Mg/0.5 Mg (3 Ml) Ud) 3 ml INH RQ6 [facility] Last Admin: 03/06/18 14:00 Dose: 3 ml Guaifenesin (Robitussin) 100 mg PO BID PRN PRN Reason: Cough Last Admin: 03/06/18 04:22 Dose: 100 mg Morphine Sulfate (Morphine) 1 mg IVP Q1 PRN PRN Reason: Pain, severe (8-10) Last Admin: 03/06/18 05:02 Dose: 1 mg Mupirocin (Bactroban Ointment) 0 gm TOP BID [facility] Last Admin: 03/06/18 17:51 Dose: 1 applic Nitroglycerin (Nitro-Bid 2% Oint) 1 ea TOP Q6H PRN PRN Reason: Systolic Blood Pressure Last Admin: 03/04/18 16:42 Dose: 1 ea Pantoprazole Sodium (Protonix Ec Tab) 40 mg PO DAILY [facility] Last Admin: 03/06/18 10:12 Dose: 40 mg Saliva Substitute (First Magic Mouthwash) 5 ml PO Q4H PRN PRN Reason: MOUTH SORE Last Admin: 03/06/18 17:49 Dose: 5 ml - Labs Labs: 03/05/18 11:01 03/05/18 11:01 - Head Exam Head Exam: ATRAUMATIC - Eye Exam Eye Exam: Normal appearance - ENT Exam ENT Exam: Mucous Membranes Dry - Respiratory Exam Respiratory Exam: NORMAL BREATHING PATTERN - Cardiovascular Exam Cardiovascular Exam: +S1, +S2 - GI/Abdominal Exam GI & Abdominal Exam: Normal Bowel Sounds Assessment and Plan (1) Brain metastasis Assessment & Plan: from breast cancer on WBRT at [place] Status: Acute (2) Pancytopenia Assessment & Plan: secondary to chemotherapy growth factor support transfusion support Status: Acute (3) Breast cancer Assessment & Plan: fstage IV on WBRT outpatient chemotherapy Status: Acute
[2018-03-07] MEDS: Albuterol-Ipratrop 3 mg / 0.5 (3 ml) UD INH SCH ×3 (02:02→13:59)
[2018-03-07] MEDS: Pantoprazole 40 mg EC Tab PO SCH (10:31)
--- NOTE | 2018-03-07 14:23 | CP.PCM.PN ---
Subjective - Date & Time of Evaluation Date of Evaluation: 03/07/18 Time of Evaluation: 08:45 - Subjective Subjective: clinically same Objective - Vital Signs/Intake and Output Vital Signs (last 24 hours): Temp Pulse Resp BP Pulse Ox 98.1 F 110 H 19 101/65 99 03/07/18 09:30 03/07/18 09:30 03/07/18 09:30 03/07/18 09:30 03/07/18 09:30 Intake and Output: 03/07/18 03/07/18 06:59 18:59 Intake Total 240 Balance 240 - Medications Medications: Current Medications Albuterol/Ipratropium (Duoneb 3 Mg/0.5 Mg (3 Ml) Ud) 3 ml INH RQ6 SARAH Last Admin: 03/07/18 13:59 Dose: 3 ml Guaifenesin (Robitussin) 100 mg PO BID PRN PRN Reason: Cough Last Admin: 03/06/18 04:22 Dose: 100 mg Morphine Sulfate (Morphine) 1 mg IVP Q1 PRN PRN Reason: Pain, severe (8-10) Last Admin: 03/06/18 05:02 Dose: 1 mg Mupirocin (Bactroban Ointment) 0 gm TOP BID [facility] Last Admin: 03/07/18 10:30 Dose: 1 applic Nitroglycerin (Nitro-Bid 2% Oint) 1 ea TOP Q6H PRN PRN Reason: Systolic Blood Pressure Last Admin: 03/04/18 16:42 Dose: 1 ea Pantoprazole Sodium (Protonix Ec Tab) 40 mg PO DAILY [facility] Last Admin: 03/07/18 10:31 Dose: 40 mg Saliva Substitute (First Magic Mouthwash) 5 ml PO Q4H PRN PRN Reason: MOUTH SORE Last Admin: 03/06/18 17:49 Dose: 5 ml - Labs Labs: 03/05/18 11:01 03/05/18 11:01
[2018-03-07 16:16] VITALS: BP 107/71; PULSE 103; RESP 18; TEMP 98.3; O2SAT 100
--- NOTE | 2018-03-07 18:06 | CP.PCM.PN ---
Subjective - Date & Time of Evaluation Date of Evaluation: 03/07/18 Time of Evaluation: 11:00 - Subjective Subjective: awake, alert, no sob or chest pains, no acute distress. Objective - Vital Signs/Intake and Output Vital Signs (last 24 hours): Temp Pulse Resp BP Pulse Ox 98.3 F 103 H 18 107/71 100 03/07/18 15:00 03/07/18 15:00 03/07/18 15:00 03/07/18 15:00 03/07/18 15:00 Intake and Output: 03/07/18 03/07/18 06:59 18:59 Intake Total 240 Balance 240 - Labs Labs: 03/05/18 11:01 03/05/18 11:01 Assessment and Plan - Assessment and Plan (Free Text) Assessment: 57 year old female metastatic breast ca admitted with generalized weakness and neutropenia. Cleared by DR Nate Mitchell and is discharged to [facility] today.
--- NOTE | 2018-03-07 23:36 | CP.PCM.PN ---
Subjective - Date & Time of Evaluation Date of Evaluation: 03/07/18 Time of Evaluation: 10:00 - Subjective Subjective: No complaints. Objective - Vital Signs/Intake and Output Vital Signs (last 24 hours): Temp Pulse Resp BP Pulse Ox 98.3 F 103 H 18 107/71 100 03/07/18 15:00 03/07/18 15:00 03/07/18 15:00 03/07/18 15:00 03/07/18 15:00 Intake and Output: 03/07/18 03/08/18 18:59 06:59 Intake Total 60 Balance 60 - Labs Labs: 03/05/18 11:01 03/05/18 11:01 - Head Exam Head Exam: ATRAUMATIC - Eye Exam Eye Exam: Normal appearance - ENT Exam ENT Exam: Mucous Membranes Dry - Respiratory Exam Respiratory Exam: NORMAL BREATHING PATTERN - Cardiovascular Exam Cardiovascular Exam: +S1, +S2 - GI/Abdominal Exam GI & Abdominal Exam: Normal Bowel Sounds Assessment and Plan (1) Brain metastasis Assessment & Plan: from breast cancer on WBRT at [place] Status: Acute (2) Pancytopenia Assessment & Plan: secondary to chemotherapy growth factor support transfusion support Status: Acute (3) Breast cancer Assessment & Plan: fstage IV on WBRT outpatient chemotherapy Status: Acute
== END 2018-03-07 17:39 | DRG 533 ==
LOC: C.ER 14:53 → C.9E 16:00 → C.5S 18:05
PROVIDERS: ADMIT Internal Medicine Nephrology; ATTEND Internal Medicine Nephrology
PROC: DWY17ZZ Contact Radiation of Head and Neck (ICD-10-PCS; principal; 2018-03-01)
PROC: 30233N1 Transfusion of Nonautologous Red Blood Cells into Peripheral Vein, Percutaneous Approach (ICD-10-PCS; 2018-03-05)
DX: C79.31 Secondary malignant neoplasm of brain (principal); D61.810 Antineoplastic chemotherapy induced pancytopenia; C79.51 Secondary malignant neoplasm of bone; C79.89 Secondary malignant neoplasm of other specified sites; G93.6 Cerebral edema; R27.0 Ataxia, unspecified; H53.2 Diplopia; I10 Essential (primary) hypertension; J45.909 Unspecified asthma, uncomplicated; M47.9 Spondylosis, unspecified; M48.061 Spinal stenosis, lumbar region without neurogenic claudication; W19.XXXA Unspecified fall, initial encounter; W17.89XA Other fall from one level to another, initial encounter; Y92.009 Unspecified place in unspecified non-institutional (private) residence as the place of occurrence of the external cause; Y92.232 Corridor of hospital as the place of occurrence of the external cause; R29.6 Repeated falls; T45.1X5A Adverse effect of antineoplastic and immunosuppressive drugs, initial encounter; Z85.3 Personal history of malignant neoplasm of breast; Z92.3 Personal history of irradiation; Z90.11 Acquired absence of right breast and nipple; Z87.01 Personal history of pneumonia (recurrent); Z86.718 Personal history of other venous thrombosis and embolism; Z87.311 Personal history of (healed) other pathological fracture; Z91.81 History of falling; Z80.51 Family history of malignant neoplasm of kidney

== ENCOUNTER 2018-04-11 09:42 | Inpatient (IN) | payer OTHER ==
[2018-04-11 09:42] VITALS: BMI 50.1
[2018-04-11] MEDS ORDERED: Sodium Chloride 0.9% 1,000 ML IV ONE ×2 (10:21→15:23)
--- NOTE | 2018-04-11 10:21 | C.PDOC ---
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 Pain is dull, g eneralized, and radiates to lower back. Has not taken any medication for pain. Associated intermittent non-bloody brown watery diarrhea and non-bloody, non- bilious vomiting. Patient has decreased appetite at baseline, but has been tolerating PO intake. Follows with Dr. Gibson for her breast cancer, currently on chemo through her chest port, last 4 days ago. Patient is not ambulatory and uses wheelchair at baseline. Denies fever, chills, chest pain, SOB, headache, dizziness, chest pain, SOB, constipation, hematochezia, hematemesis, melena, cough, numbness, paresthesias, or any other associated symptoms. Time Seen by Provider: 04/11/18 10:15 Chief Complaint (Nursing): Abdominal Pain History Per: Patient History/Exam Limitations: no limitations Onset/Duration Of Symptoms: Days Current Symptoms Are (Timing): Still Present Location Of Pain/Discomfort: Diffuse Radiation Of Pain To:: Back Quality Of Discomfort: Dull Associated Symptoms: Vomiting, Diarrhea. denies: Fever, Chills Exacerbating Factors: None Alleviating Factors: None Last Bowel Movement: Today Recent travel outside of the [place]: No Abnormal Vaginal Bleeding: No Past Medical History Reviewed: Historical Data, Nursing Documentation, Vital Signs - Medical History PMH: Asthma (CHILDHOOD NO MEDS), Fractures (TOE/ARM NO SURGERY), HTN, Malignancy (BREAST CANCER on chemotherapy), Pneumonia (Childhood) Denies: Atrial Fibrillation, Bronchitis, Cardia Arrhythmia, CHF, COPD, Emphysema, Hypercholesterolemia, Mitral Valve Prolapse, Peripheral Edema, Pulmonary Embolism, Chronic Kidney Disease, Sleep Apnea Surgical History: Denies: Pacemaker - [facility] Procedures CONTACT RADIATION OF HEAD AND NECK (02/23/18) CONTRAST PHLEBOGRAM NEC (04/10/14) DX ULTRASOUND-THORAX NEC (11/09/13) ENDO RECTUM POLYPECTOMY (11/30/12) EXCISION OF RIGHT LOWER LUNG LOBE, PERC APPROACH, DIAGN (07/08/17) FLUOROSCOPY OF INFERIOR VENA CAVA, GUIDANCE (10/17/17) INSERTION OF INTRALUM DEV INTO INF VENA CAVA, PERC APPROACH (10/17/17) INSERTION OF TOTALLY IMPLANTABLE VASC ACCESS DEVIC (11/09/13) LOCAL EXCIS BREAST LES (08/17/13) LYMPHATIC STRUCT BIOPSY (08/17/13) REMOVAL OF INTRALUMINAL DEVICE FROM LOW VEIN, PERC APPROACH (10/17/17) REVISION OF VAD IN TRUNK SUBCU/FASCIA, PERC APPROACH (07/08/17) THORAX SFT TISS XRAY NEC (11/09/13) TRANSFUSE NONAUT RED BLOOD CELLS IN PERIPH VEIN, PERC (02/23/18) UNILAT EXTEN SIMP MASTEC (07/05/14) UNILAT REDUCT MAMMOPLAST (07/05/14) Family History: States: Unknown Family Hx - Social History Hx Tobacco Use: No Hx Alcohol Use: No Hx Substance Use: No - Immunization History Hx Tetanus Toxoid Vaccination: No Hx Influenza Vaccination: No Hx Pneumococcal Vaccination: No Review Of Systems Except As Marked, All Systems Reviewed And Found Negative. Constitutional: Positive for: Chills Cardiovascular: Negative for: Chest Pain, Palpitations Respiratory: Negative for: Cough, Shortness of Breath Gastrointestinal: Positive for: Vomiting, Abdominal Pain, Diarrhea Genitourinary: Negative for: Dysuria, Frequency, Incontinence Musculoskeletal: Positive for: Back Pain. Negative for: Neck Pain Skin: Positive for: Other (sacral wounds) Neurological: Negative for: Weakness, Numbness, Headache, Dizziness Physical Exam - Physical Exam Appears: Non-toxic, No Acute Distress, Chronically Ill Skin: Dry, Pale, No Rash Head: Atraumatic, Normacephalic Eye(s): bilateral: Normal Inspection, PERRL, EOMI Oral Mucosa: Dry Tongue: Other (Dry) Lips: Pale, Other (Dry) Neck: Normal ROM, Supple Chest: No Tenderness Cardiovascular: Rhythm Regular, No Murmur Respiratory: Normal Breath Sounds, No Rales, No Rhonchi, No Wheezing Gastrointestinal/Abdominal: Bowel Sounds (hypoactive throughout), Soft, Tenderness (Generalized ), No Mass, No Distention, No Guarding, No Rebound Rectal: Rectal Tone, Heme Positive, Other (Brown stool) Back: Other (left sided stage 3 decubitus ulcer top of gluteal cleft without signs of surrounding cellulitis. Multiple superficial ulcerations bilaterally on buttock) Extremity: Normal ROM, No Calf Tenderness, Capillary Refill (<2s), No Swelling Extremity: Bilateral: Atraumatic, Normal Color And Temperature, Normal ROM Pulses: Left Radial: Normal, Right Radial: Normal Neurological/Psych: Oriented x3, Normal Speech, Normal Cognition, Normal Sensation Gait: Steady ED Course And Treatment - Laboratory Results Result Diagrams: 04/11/18 17:57 04/11/18 17:57 ECG: Viewed By Me ECG Rhythm: Sinus Tachycardia Interpretation Of ECG: Rate 125; Sinus Tachycardia; No STEMI; Nonspecific ST/T wave changes Rate From EC - Other Rad CXR X-Ray: Viewed By Me, Read By Radiologist Interpretation: HISTORY: abdominal pain, history of metastatic disease. COMPARISON: Chest x-ray performed 02/23/18, CTA chest performed 07/06/17. TECHNIQUE: Chest, one view. FINDINGS: Left IJ approach MediPort unchanged in position. Postsurgical changes, right lung base/chest wall. LUNGS: Nonspecific haziness within the right middle lobe. Please note that chest x-ray has limited sensitivity for the detection of pulmonary masses. PLEURA: No significant pleural effusion identified. No definite pneumothorax . CARDIOVASCULAR: Heart size appears within normal limits. Prominence the mediastinum consistent with tortuous vasculature. Alternatives including adenopathy not excluded. No significant atherosclerotic calcification present. OSSEOUS STRUCTURES: Degenerative changes. VISUALIZED UPPER ABDOMEN: Unremarkable. OTHER FINDINGS: None. IMPRESSION: Left IJ approach MediPort unchanged in position. Nonspecific right middle lobe haziness. Prominence the mediastinum consistent with tortuous vasculature. Alternatives including adenopathy not excluded. Known metastatic lesions seen to better advantage by CT. - CT Scan/US Abdomen/Pelvis CT Other Rad Studies (CT/US): Read By Radiologist, Radiology Report Reviewed CT/US Interpretation: Date of service: 04/11/2018. PROCEDURE: CT Abdomen and Pelvis with contrast. HISTORY: abd pain. COMPARISON: CT abdomen and pelvis with IV 05/22/17. TECHNIQUE: Contrast dose: 100 cc Visipaque 320. Radiation dose: Total exam DLP = 1234.95 mGy-cm. This CT exam was performed using one or more of the following dose reduction techniques: Automated exposure control, adjustment of the mA and/or kV according to patient size, and/or use of iterative reconstruction technique. FINDINGS: LOWER THORAX: Right middle lobe consolidation. No significant pleural effusion or pneumothorax visualized. 8 mm right lower lobe pulmonary nodule (series 3, image 23). LIVER: Unremarkable. GALLBLADDER AND BILE DUCTS: Unremarkable. PANCREAS: Fatty atrophy. SPLEEN: Unremarkable. ADRENALS: Unremarkable. KIDNEYS AND URETERS: The kidneys enhance symmetrically. No hydronephrosis or obstructing calculus identified. Too small to characterize bilateral renal hypodensities; statistically likely cysts. VASCULATURE: IVC filter. No aortic aneurysm. No atherosclerotic calcification or mural plaque present. BOWEL: Stomach is nondistended. Lack of oral contrast limits evaluation for bowel pathology. Diffuse colonic wall thickening raises concern for roldan colitis (i.e. Infectious/inflammatory). Large amount of fluid is noted within the rectosigmoid colon; consistent with diarrheal illness. APPENDIX: No secondary signs of acute appendicitis. PERITONEUM: No significant free fluid. No definite free air. LYMPH NODES: No bulky adenopathy identified. BLADDER: Unremarkable. REPRODUCTIVE: Unremarkable. BONES: Diffuse osseous demineralization. Degenerative changes. Sclerotic focus within the left sacrum L3 vertebral body. Lucent foci measuring to 1.3 cm at the left head. Associated regions of sclerosis. OTHER FINDINGS: 3.0 x 2.2 x 7.2 cm low-density within the left psoas. Associated punctate focus of air. IMPRESSION: 8 mm right lowe r lobe pulmonary nodule. Recommend further evaluation with biopsy, PET- CT, or follow-up CT at 3 months, and 9 months, and 24 months. Right middle lobe consolidation, likely atelectasis, partially imaged. Diffuse colonic wall thickening raises concern for roldan colitis (i.e. Infectious/inflammatory). Large amount of fluid is noted within the rectosigmoid colon; consistent with diarrheal illness. 3 x 2.2 x 7.2 cm low-density within the left psoas. Punctate associated focus of air is noted. Correlate clinically for possibility of abscess. Alternatives including hematoma not excluded. Sclerotic focus within the left sacrum and L3 vertebral body. Lucent foci measuring to 1.3 cm at the left head. Associated regions of sclerosis. Correlate clinically and with bone scan if indicated. Additional findings as above. Discussed without the Gildardo Ratliff on 04/11/18 at 5:03 p.m. Medical Decision Making Medical Decision Makin:15 Plan: * CBC, CMP * Lipase * Troponin * VBG Shock Panel * UA, culture * EKG * CXR * CT Abd/Pelvis * Tylenol * IVF * Morphine On initial exam, patient afebrile by oral temp, tachycardic, tachypneic. Appears uncomfortable but is in no acute distress. No SOB. Rectal temp requested. Will order lactic acid, as patient meets SIRS criteria. Nursing having a difficult time acquiring IV access for labs or medications. 12:00 Patient tachycardic, tachypneic, febrile, with lactate of 2.8. Discussed with Dr. Do, will call code sepsis. States that 30cc/kg bolus not necessary secondary to lactate <4 and normal BP. Will start with 1-2 L NS. Will get blood cultures and give IV Vanco and Zosyn for presumed intraabdominal infection. 13:00 Patient reports decreased pain with Morphine. Requested to nursing for patient to be taken to CT. Patient states she cannot swallow well. Will give rectal Tylenol. 14:[address] Mitchell, who is aware of patient's presence in the ED and probable admission to his service, pending CT scan. Requested to nursing for patient to be taken to CT. 15:30 Patient had episode of diffuse watery brown diarrhea. Will need to clean before CT scan. 16:[address] scan. Potassium 40mEq PO ordered to replete mildly low potassium 17:[address] Oliveira regarding CT results. States lung finding most likely atelectasis, non-specific. Recommends lateral film. CT Abd/Pelvis shows questionable right sided lung consolidation, roldan-colitis, and possible left psoas abscess, along with sclerotic lesion in sacrum/L3 spine Dr. Mitchell accepted patient for inpatient admission to telemetry floor with diagnosis of sepsis, pancolitis, and possible psoas abscess. Requests surgical consult. 18:00 Patient had acute episode of large amount of bloody diarrhea in ED. Dr. Mitchell made aware, requests admission to ICU. Spoke with Dr. Barone, who states he will see patient in ED. Recommends dose of Flagyl. Patient continues to be febrile after GA Tylenol, PO Tylenol ordered. 18:15 Patient evaluated at bedside by GI Dr. Starr, who requests 2 units PRBC and 2 units FFP with NPO status and stool evaluation including Cdiff, Ova and Parasites, Leuks, and culture 18:[address] Barone and salesperson surgical appliances (for Dr. Jose Luis Sahu) at bedside. Dr. Vasquez accepted patient for ICU admission. Requests ID, heme/onc, GI, surgical consults. States patient will be transfused upstairs in the unit with PRBC as they deem necessary. FFP to be transfused now. Patient informed of risks of blood transfusion and verbalized understanding, signed consent form. Witnessed by nursing. 18:40 WBC now 0.7 from 8.7. Spoke with heme/onc Dr. Gibson, who requests Grasix and fibrinogen level. Will see and follow patient in ICU. Spoke with Dr. Castillo, who will be covering for Dr. Chris Mitchell. He was made aware of case and diagnostic testing, states he will be following patient. 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 - Scribe Statement The provider has reviewed the documentation as recorded by the Cayla Lo All medical record entries made by the Cayla were at my direction and personally dictated by me. I have reviewed the chart and agree that the record accurately reflects my personal performance of the history, physical exam, medical decision making, and the department course for this patient. I have also personally directed, reviewed, and agree with the discharge instructions and dis position.
--- NOTE | 2018-04-11 11:44 | RAD ---
HISTORY: abdominal pain, history of metastatic disease COMPARISON: Chest x-ray performed 02/23/18, CTA chest performed 07/06/17 TECHNIQUE: Chest, one view. FINDINGS: Left IJ approach MediPort unchanged in position. Postsurgical changes, right lung base/chest wall. LUNGS: Nonspecific haziness within the right middle lobe. Please note that chest x-ray has limited sensitivity for the detection of pulmonary masses. PLEURA: No significant pleural effusion identified. No definite pneumothorax . CARDIOVASCULAR: Heart size appears within normal limits. Prominence the mediastinum consistent with tortuous vasculature. Alternatives including adenopathy not excluded. No significant atherosclerotic calcification present. OSSEOUS STRUCTURES: Degenerative changes. VISUALIZED UPPER ABDOMEN: Unremarkable. OTHER FINDINGS: None. IMPRESSION: Left IJ approach MediPort unchanged in position. Nonspecific right middle lobe haziness. Prominence the mediastinum consistent with tortuous vasculature. Alternatives including adenopathy not excluded. Known metastatic lesions seen to better advantage by CT.
[2018-04-11 11:45] LABS: VENOUS BLOOD GAS BASE EXCESS 6.6 mmol/L (0.0-2.0); VENOUS BLOOD GAS PCO2 50 mmHg (40-60); VENOUS BLOOD GAS PO2 14 mm/Hg (30-55); VENOUS BLOOD PH 7.42 (7.32-7.43)
[2018-04-11 11:50] LABS: HEMOGLOBIN 9.4 g/dL (11.0-16.0); MEAN CELL VOLUME 81.6 fL (81.0-99.0); MEAN CORPUSCULAR HEMOGLOBIN 26.3 pg (27.0-31.0); MEAN CORPUSCULAR HGB CONC 32.3 g/dL (33.0-37.0); PLATELET COUNT 75 K/uL (130-400); RBC 3.58 Mil/uL (3.80-5.20); RED CELL DISTRIBUTION WIDTH 19.7 % (11.5-14.5); WHITE BLOOD COUNT 8.7 K/uL (4.8-10.8)
[2018-04-11 11:55] LABS: ALBUMIN 3.7 g/dL (3.5-5.0); BLOOD UREA NITROGEN 14 mg/dL (7-17); CALCIUM 8.2 mg/dl (8.6-10.4); GFR NON-AFRICAN AMERICAN > 60
[2018-04-11] MEDS ORDERED: Vancomycin 1 gm/NS 200 ml 1 GM/200 ML BAG IVPB STA (11:58)
[2018-04-11] MEDS ORDERED: Piperacill/Tazo 3.375gm in Dex 3.375 GM/50 ML BAG IVPB STA (11:58)
[2018-04-11 12:08] LABS: ALT/SGPT 21 U/L (9-52); AST/SGOT 31 U/L (14-36); LIPASE < 10 U/L (23-300)
[2018-04-11] MEDS ORDERED: Morphine 4 MG/ML VIAL ONE (12:14)
[2018-04-11 12:24] LABS: ANISOCYTOSIS SLIGHT; BANDS 8 % (0-2); LYMPHOCYTE 21 % (20-40); METAMYELOCYTE 1 % (0-0); MONOCYTE 2 % (0-10); NEUTROPHIL 68 % (50-75); PLATELET ESTIMATE DECREASED (NORMAL); POIKILOCYTOSIS SLIGHT; TOTAL CELLS COUNTED 100
[2018-04-11 12:25] LABS: HYPOCHROMIC SLIGHT; MICROCYTOSIS SLIGHT; OVALOCYTES SLIGHT; TARGET CELLS SLIGHT; TEARDROP CELLS SLIGHT
[2018-04-11 12:26] LABS: LYMPH # 1.8 K/uL (1.0-4.3); NEUT # 6.7 K/uL (1.8-7.0)
[2018-04-11 12:27] LABS: MONO # 0.2 K/uL (0.0-0.8)
[2018-04-11] MEDS ORDERED: Vancomycin 1 GM 1 GM/250 ML BAG IVPB ONE (13:26)
[2018-04-11 14:11] LABS: VENOUS BLOOD GAS BASE EXCESS 6.4 mmol/L (0.0-2.0); VENOUS BLOOD GAS PCO2 45 mmHg (40-60); VENOUS BLOOD GAS PO2 18 mm/Hg (30-55); VENOUS BLOOD PH 7.45 (7.32-7.43)
[2018-04-11] MEDS ORDERED: Iodixanol 320 mg/ml 150 ml Bottle IV ONE (14:14)
[2018-04-11] MEDS ORDERED: Potassium Chloride 20 mEq ER Tab PO STA (15:42)
[2018-04-11 16:06] LABS: SQUAMOUS EPITHIAL 1 /hpf (0-5); URINE BILIRUBIN NEGATIVE (NEGATIVE); URINE BLOOD 2+ (NEGATIVE); URINE CLARITY Hazy (Clear); URINE COLOR Yellow (YELLOW); URINE GLUCOSE (UA) NORMAL (Normal); URINE LEUKOCYTE ESTERASE NEG Leu/uL (Negative); URINE PROTEIN 2+ mg/dL (NEGATIVE); URINE UROBILINOGEN NORMAL mg/dL (0.2-1.0)
[2018-04-11] MEDS ORDERED: Potassium Chloride 20 mEq/15 ml LIQ UD PO STA (16:08)
--- NOTE | 2018-04-11 16:15 | CARD ---
APPROVED REPORT Date of service: 04/11/2018 EKG Measurement Heart [id number] CO 186P-14 [id number] <Conclusion> Sinus tachycardia ST & T wave abnormality, consider inferior ischemia ST & T wave abnormality, consider anterolateral ischemia Abnormal ECG
[2018-04-11 16:16] LABS: INR 1.7; PROTHROMBIN TIME 18.4 SECONDS (9.7-12.2)
[2018-04-11] MEDS ORDERED: Potassium Chloride 20 mEq/15 ml LIQ UD ONE (16:29)
--- NOTE | 2018-04-11 17:11 | CT ---
Date of service: 04/11/2018 PROCEDURE: CT Abdomen and Pelvis with contrast HISTORY: abd pain COMPARISON: CT abdomen and pelvis with IV 05/22/17 TECHNIQUE: Contrast dose: 100 cc Visipaque 320 Radiation dose: Total exam DLP = 1234.95 mGy-cm. This CT exam was performed using one or more of the following dose reduction techniques: Automated exposure control, adjustment of the mA and/or kV according to patient size, and/or use of iterative reconstruction technique. FINDINGS: LOWER THORAX: Right middle lobe consolidation. No significant pleural effusion or pneumothorax visualized. 8 mm right lower lobe pulmonary nodule (series 3, image 23) LIVER: Unremarkable. GALLBLADDER AND BILE DUCTS: Unremarkable. PANCREAS: Fatty atrophy. SPLEEN: Unremarkable. ADRENALS: Unremarkable. KIDNEYS AND URETERS: The kidneys enhance symmetrically. No hydronephrosis or obstructing calculus identified. Too small to characterize bilateral renal hypodensities; statistically likely cysts. VASCULATURE: IVC filter. No aortic aneurysm. No atherosclerotic calcification or mural plaque present. BOWEL: Stomach is nondistended. Lack of oral contrast limits evaluation for bowel pathology. Diffuse colonic wall thickening raises concern for roldan colitis (i.e. Infectious/inflammatory). Large amount of fluid is noted within the rectosigmoid colon; consistent with diarrheal illness. APPENDIX: No secondary signs of acute appendicitis. PERITONEUM: No significant free fluid. No definite free air. LYMPH NODES: No bulky adenopathy identified. BLADDER: Unremarkable. REPRODUCTIVE: Unremarkable. BONES: Diffuse osseous demineralization. Degenerative changes. Sclerotic focus within the left sacrum L3 vertebral body. Lucent foci measuring to 1.3 cm at the left head. Associated regions of sclerosis. OTHER FINDINGS: 3.0 x 2.2 x 7.2 cm low-density within the left psoas. Associated punctate focus of air. IMPRESSION: 8 mm right lower lobe pulmonary nodule. Recommend further evaluation with biopsy, PET- CT, or follow-up CT at 3 months, and 9 months, and 24 months. Right middle lobe consolidation, likely atelectasis, partially imaged. Diffuse colonic wall thickening raises concern for roldan colitis (i.e. Infectious/inflammatory). Large amount of fluid is noted within the rectosigmoid colon; consistent with diarrheal illness. 3 x 2.2 x 7.2 cm low-density within the left psoas. Punctate associated focus of air is noted. Correlate clinically for possibility of abscess. Alternatives including hematoma not excluded. Sclerotic focus within the left sacrum and L3 vertebral body. Lucent foci measuring to 1.3 cm at the left head. Associated regions of sclerosis. Correlate clinically and with bone scan if indicated. Additional findings as above. Discussed without the Gildardo Ratliff on 04/11/18 at 5:03 p.m.
[2018-04-11] MEDS ORDERED: metroNIDAZOLE IV 500 mg/100 ml 500 MG/100 ML BAG IVPB STA (17:47)
[2018-04-11 18:11] LABS: LYMPH # 0.1 K/uL (1.0-4.3); MEAN PLATELET VOLUME 8.3 fL (7.2-11.7); NEUT # 0.5 K/uL (1.8-7.0)
[2018-04-11] MEDS ORDERED: Acetaminophen 650mg/20.3ml solution UD PO STA (18:15)
[2018-04-11 18:21] LABS: ALB/GLOB RATIO 0.9 (1.0-2.1); ALBUMIN 2.9 g/dL (3.5-5.0); ALT/SGPT 24 U/L (9-52); AST/SGOT 20 U/L (14-36); BLOOD UREA NITROGEN 12 mg/dL (7-17); CALCIUM 7.4 mg/dl (8.6-10.4); GFR NON-AFRICAN AMERICAN > 60
[2018-04-11 18:38] LABS: BASO % 0.5 % (0.0-2.0); EOS % 0.2 % (0.0-4.0); LYMPH % 16.6 % (20.0-40.0); MEAN CORPUSCULAR HEMOGLOBIN 25.5 pg (27.0-31.0); MEAN CORPUSCULAR HGB CONC 31.1 g/dL (33.0-37.0); MONO % 2.1 % (0.0-10.0); NEUT % 80.6 % (50.0-75.0); RBC 3.13 Mil/uL (3.80-5.20); RED CELL DISTRIBUTION WIDTH 20.6 % (11.5-14.5)
[2018-04-11 18:44] LABS: WHITE BLOOD COUNT 0.7 K/uL (4.8-10.8)
[2018-04-11] MEDS ORDERED: Acetaminophen 650mg/20.3ml solution UD ONE (18:52)
[2018-04-11] MEDS ORDERED: metroNIDAZOLE IV 500 mg/100 ml 500 MG/100 ML BAG ONE (18:52)
--- NOTE | 2018-04-11 20:11 | CP.PCM.CON ---
History of Present Illness - History of Present Illness History of Present Illness: Chief commend: Weakness HPI: 58-year-old female with a history of breast cancer, with metastasis came to the emergency room with worsening abdominal pain for 1 week duration, got worse now. Patient also receives radiation treatment. She has a significant sacral ulcers also. Receiving chemotherapy. Patient got it 4 days ago according to the patient. She was also having some amount of vomiting mostly mucus. But ongoing abdominal pain. Episodes of diarrhea initially code sepsis was called because of the elevated lactate. Patient was resuscitated with IV fluids. But while she was waiting patient had a significant amount of rectal bleeding associate with abdominal pain. ICU evaluation was called in. Patient was earlier seen by ceramic restorer. Suggested for 2 units of FFP. And also blood transfusion as needed. Patient now responding. But complaining of abdominal pain. She is also looks like very dehydrated. Past medical history: Bronchial asthma, history of fractures, hypertension, breast cancer with metastases. History of pneumonia in the past. Also had a history of chronic disease. Surgical history includes lumpectomy. Radiation treatment. Allergies no known drug allergy Non-smoker nonalcoholic On examination: Patient is somewhat very dehydrated. She is alert and responding. Tachycardia noted. Blood pressure stable otherwise. Chest good air entry Left-sided Port-A-Cath noted. Patient abdominal pain diffusely noted. Tenderness diffusely present. No leg edema Labs reviewed Initially blood test showing evidence of concentrated blood. The repeat CBC with pancytopenia noted. Significant neutropenia noted Lactate slightly elevated. Chest x-ray nonspecific. CT scan of the abdomen and pelvis showing evidence of diffuse pancolitis. Patient also has a iliopsoas abscess, or suspected hematoma, Not clear Assessment and recommendation: 58-year-old female now admitted to the hospital with a severe septic-like picture. Pancolitis. Rectal bleeding. Severe dehydration. Pancytopenia. Neutropenia Status post chemotherapy. Breast cancer with metastasis. Infectious process likely. Ischemic colon Cannot be ruled out. Resuscitation. ICU monitoring. Overall prognosis very poor. Past Patient History - Infectious Disease Hx of Infectious Diseases: None - Past Medical History & Family History Past Medical History?: Yes - Past Social History Smoking Status: Never Smoked - CARDIAC Hx Atrial Fibrillation: No Hx Cardia Arrhythmia: No Hx Congestive Heart Failure: No Hx Hypercholesterolemia: No Hx Hypertension: Yes Hx Mitral Valve Prolapse: No Hx Pacemaker: No Hx Peripheral Edema: No - PULMONARY Hx Asthma: Yes (CHILDHOOD NO MEDS) Hx Bronchitis: No Hx Chronic Obstructive Pulmonary Disease (COPD): No Hx Emphysema: No Hx Pneumonia: Yes (Childhood) Hx Pulmonary Embolism: No Hx Sleep Apnea: No - NEUROLOGICAL Hx Neurological Disorder: No - HEENT Hx HEENT Problems: No Other/Comment: GLASSES - RENAL Hx Chronic Kidney Disease: No - ENDOCRINE/METABOLIC Hx Endocrine Disorders: No - HEMATOLOGICAL/ONCOLOGICAL Hx Cancer: Yes (breast 2018; mets to bone) Other/Comment: in chemotherapy every wednesday - INTEGUMENTARY Hx Dermatological Problems: No - MUSCULOSKELETAL/RHEUMATOLOGICAL Hx Fractures: Yes (TOE/ARM NO SURGERY) - GENITOURINARY/GYNECOLOGICAL Hx Genitourinary Disorders: Yes Other/Comment: right breast cancer - PSYCHIATRIC Hx Substance Use: No - SURGICAL HISTORY Hx Surgeries: Yes Hx Section: Yes (one) Other/Comment: breast removal s/p breast ca july 2014. - ANESTHESIA Hx Anesthesia: Yes Hx Anesthesia Reactions: No Hx Malignant Hyperthermia: No Meds Allergies/Adverse Reactions: Allergies Allergy/AdvReac Type Severity Reaction Status Date / Time No Known Allergies Allergy Verified 02/23/18 14:57 - Medications Medications: Current Medications Metronidazole (Flagyl) 500 mg in 100 mls @ 100 mls/hr IVPB Q12 SARAH; Protocol Piperacillin Sod/Tazobactam Sod (Zosyn 3.375 Gm Iv Premix) 3.375 gm in 50 mls @ 100 mls/hr IVPB Q8 SARAH; Protocol Vancomycin HCl 1 gm/ Sodium (Chloride) 250 mls @ 166.7 mls/hr IVPB Q24H [facility]AH; Protocol Sodium Chloride (Sodium Chloride 0.9%) 1,000 mls @ 100 mls/hr IV .Q10H [facility]AH Pantoprazole Sodium (Protonix Inj) 40 mg IVP DAILY SARAH Pantoprazole Sodium (Protonix Inj) 40 mg IVP Q12H SARAH Results - Vital Signs Recent Vital Signs: Last Vital Signs Temp 99.1 F 04/11/18 19:34 Pulse 130 H 04/11/18 19:34 Resp 28 H 04/11/18 19:34 BP 148/75 04/11/18 19:34 Pulse Ox 100 04/11/18 19:34 - Labs Result Diagrams: 04/11/18 17:57 04/11/18 17:57 Labs: Laboratory Results - last 24 hr 04/11/18 04/11/18 04/11/18 11:31 11:31 11:35 WBC 8.7 D RBC 3.58 L Hgb 9.4 L D Hct 29.2 L MCV 81.6 MCH 26.3 L MCHC 32.3 L RDW 19.7 H Plt Count 75 L D MPV 8.0 Neut % (Auto) 77.0 H Lymph % (Auto) 21.0 [place] % (Auto) 2.0 Eos % (Auto) 0.0 Baso % (Auto) 0.0 Neut # (Auto) 6.7 Lymph # (Auto) 1.8 [place] # (Auto) 0.2 Eos # (Auto) 0.0 Baso # (Auto) 0.0 Neutrophils % (Manual) 68 Band Neutrophils % 8 H Lymphocytes % (Manual) 21 Monocytes % (Manual) 2 Metamyelocytes % 1 H Differential Comment Platelet Estimate Decreased L Hypochromasia (manual) Slight Poikilocytosis (manual Slight Anisocytosis (manual) Slight Microcytosis (manual) Slight Macrocytosis (manual) Slight Target Cells Slight Tear Drop Cells Slight Ovalocytes Slight PT INR APTT pO2 14 L VBG pH 7.42 VBG pCO2 50 VBG HCO3 27.9 VBG Total CO2 33.9 H VBG O2 Sat (Calc) 20.3 L VBG Base Excess 6.6 H VBG Potassium 3.0 L Glucose 127 H Lactate 2.8 H Sodium 136 139.0 Potassium 3.1 L Chloride 97 L 103.0 Carbon Dioxide 30 Anion Gap 13 BUN 14 Creatinine 0.4 L Est GFR ( Amer) > 60 Est GFR (Non-Af Amer) > 60 Random Glucose 130 H D Calcium 8.2 L Total Bilirubin 1.4 H AST 31 ALT 21 Alkaline Phosphatase 82 Troponin I < 0.0120 Total Protein 7.3 Albumin 3.7 Globulin 3.6 Albumin/Globulin Ratio 1.0 Lipase < 10 L Venous Blood Potassium 3.0 L Urine Color Urine Clarity Urine pH Ur Specific [place] Urine Protein Urine Glucose (UA) Urine Ketones Urine Blood Urine Nitrate Urine Bilirubin Urine Urobilinogen Ur Leukocyte Esterase Urine WBC (Auto) Urine RBC (Auto) Ur Squamous Epith Cells Influenza Typ A,B (EIA) Blood Type Antibody Screen 04/11/18 04/11/18 04/11/18 14:00 15:32 15:54 WBC RBC Hgb Hct MCV MCH MCHC RDW Plt Count MPV Neut % (Auto) Lymph % (Auto) [place] % (Auto) Eos % (Auto) Baso % (Auto) Neut # (Auto) Lymph # (Auto) [place] # (Auto) Eos # (Auto) Baso # (Auto) Neutrophils % (Manual) Band Neutrophils % Lymphocytes % (Manual) Monocytes % (Manual) Metamyelocytes % Differential Comment Platelet Estimate Hypochromasia (manual) Poikilocytosis (manual Anisocytosis (manual) Microcytosis (manual) Macrocytosis (manual) Target Cells Tear Drop Cells Ovalocytes PT 18.4 H INR 1.7 APTT 30 pO2 18 L VBG pH 7.45 H VBG pCO2 45 VBG HCO3 28.1 VBG Total CO2 32.7 H VBG O2 Sat (Calc) 35.4 L VBG Base Excess 6.4 H VBG Potassium 2.7 L Glucose 120 H Lactate 2.5 H Sodium 143.0 Potassium Chloride 105.0 Carbon Dioxide Anion Gap BUN Creatinine Est GFR ( Amer) Est GFR (Non-Af Amer) Random Glucose Calcium Total Bilirubin AST ALT Alkaline Phosphatase Troponin I Total Protein Albumin Globulin Albumin/Globulin Ratio Lipase Venous Blood Potassium 2.7 L Urine Color Yellow Urine Clarity Hazy Urine pH 6.0 Ur Specific [place] 1.028 Urine Protein 2+ H Urine Glucose (UA) Normal Urine Ketones Trace Urine Blood 2+ H Urine Nitrate Negative Urine Bilirubin Negative Urine Urobilinogen Normal Ur Leukocyte Esterase Neg Urine WBC (Auto) 15 H Urine RBC (Auto) 13 H Ur Squamous Epith Cells 1 Influenza Typ A,B (EIA) Blood Type Antibody Screen 04/11/18 04/11/18 04/11/18 17:57 17:57 17:57 WBC 0.7 L* D RBC 3.13 L Hgb 8.0 L Hct 25.6 L MCV 82.0 MCH 25.5 L MCHC 31.1 L RDW 20.6 H Plt Count 33 L D MPV 8.3 Neut % (Auto) 80.6 H Lymph % (Auto) 16.6 L [place] % (Auto) 2.1 Eos % (Auto) 0.2 Baso % (Auto) 0.5 Neut # (Auto) 0.5 L Lymph # (Auto) 0.1 L [place] # (Auto) 0.0 Eos # (Auto) 0.0 Baso # (Auto) 0.0 Neutrophils % (Manual) Band Neutrophils % Lymphocytes % (Manual) Monocytes % (Manual) Metamyelocytes % Differential Comment Platelet Estimate Hypochromasia (manual) Poikilocytosis (manual Anisocytosis (manual) Microcytosis (manual) Macrocytosis (manual) Target Cells Tear Drop Cells Ovalocytes PT INR APTT pO2 VBG pH VBG pCO2 VBG HCO3 VBG Total CO2 VBG O2 Sat (Calc) VBG Base Excess VBG Potassium Glucose Lactate Sodium 137 Potassium 3.0 L Chloride 100 Carbon Dioxide 29 Anion Gap 11 BUN 12 Creatinine 0.4 L Est GFR ( Amer) > 60 Est GFR (Non-Af Amer) > 60 Random Glucose 135 H Calcium 7.4 L Total Bilirubin 1.1 AST 20 ALT 24 Alkaline Phosphatase 73 Troponin I Total Protein 5.9 L Albumin 2.9 L D Globulin 3.1 Albumin/Globulin Ratio 0.9 L Lipase Venous Blood Potassium Urine Color Urine Clarity Urine pH Ur Specific [place] Urine Protein Urine Glucose (UA) Urine Ketones Urine Blood Urine Nitrate Urine Bilirubin Urine Urobilinogen Ur Leukocyte Esterase Urine WBC (Auto) Urine RBC (Auto) Ur Squamous Epith Cells Influenza Typ A,B (EIA) Blood Type O POSITIVE Antibody Screen Negative 04/11/18 18:35 WBC RBC Hgb Hct MCV MCH MCHC RDW Plt Count MPV Neut % (Auto) Lymph % (Auto) [place] % (Auto) Eos % (Auto) Baso % (Auto) Neut # (Auto) Lymph # (Auto) [place] # (Auto) Eos # (Auto) Baso # (Auto) Neutrophils % (Manual) Band Neutrophils % Lymphocytes % (Manual) Monocytes % (Manual) Metamyelocytes % Differential Comment Platelet Estimate Hypochromasia (manual) Poikilocytosis (manual Anisocytosis (manual) Microcytosis (manual) Macrocytosis (manual) Target Cells Tear Drop Cells Ovalocytes PT INR APTT pO2 VBG pH VBG pCO2 VBG HCO3 VBG Total CO2 VBG O2 Sat (Calc) VBG Base Excess VBG Potassium Glucose Lactate Sodium Potassium Chloride Carbon Dioxide Anion Gap BUN Creatinine Est GFR ( Amer) Est GFR (Non-Af Amer) Random Glucose Calcium Total Bilirubin AST ALT Alkaline Phosphatase Troponin I Total Protein Albumin Globulin Albumin/Globulin Ratio Lipase Venous Blood Potassium Urine Color Urine Clarity Urine pH Ur Specific [place] Urine Protein Urine Glucose (UA) Urine Ketones Urine Blood Urine Nitrate Urine Bilirubin Urine Urobilinogen Ur Leukocyte Esterase Urine WBC (Auto) Urine RBC (Auto) Ur Squamous Epith Cells Influenza Typ A,B (EIA) Negative for flu a/b Blood Type Antibody Screen
[2018-04-11] MEDS ORDERED: Sodium Chloride 0.9% 1,000 ML IV SCH (20:15)
--- NOTE | 2018-04-11 20:35 | CP.PCM.CON ---
<Ernestina Rod - Last Filed: 04/11/18 19:53> History of Present Illness - History of Present Illness History of Present Illness: Surgery Consult: Dr. Duran Pt is a 58F with PMHx significant for metastatic breast CA with mets to the brain, bone and lungs s/p b/l mastectomy with radiation and currently on chemo who presents to with complaints of generalized abdominal pain x 4 days. Pt s tates that she has been having episodes of abdominal pain on and off for the past week with associated diarrhea. She describes the pain as diffuse and dull in nature and states the pain has been getting worse over the course of the week which is why she came to the ER today. Pt also admits to coughing up phlegm but denies vomiting. States she has a poor appetite 2/2 chemo but is able to keep liquids down. Admits to chills but denies fevers. In the ER, pt had a CT abdomen/pelvis which showed thickening of the rectosigmoid colon consistent with pancolitis. A low density within the Left psoas also visualized; r/o abscess vs hematoma. Surgery consulted to evaluate. Currently, pt is resting in bed in ER. As per discussion with pt's nurse pt had a large bloody BM while in the ER. Pt still with abdominal pain but denies vomiting. Pt states she was at [facility] just a few months ago for weakness/fall. Denies any more history of falls since that admission in February. Denies other complaints at this time. PMHx: metastatic Breast CA, DVT PSHx: b/l mastectomy with R axillary lymph node dissection, chemoport, Left leg sx, SocialHx: denies smoking/EtOH/drugs; lives at home with son/nephew NKDA Review of Systems - Review of Systems All systems: reviewed and no additional remarkable complaints except (as per HPI) Past Patient History - Infectious Disease Hx of Infectious Diseases: None - Past Medical History & Family History Past Medical History?: Yes - Past Social History Smoking Status: Never Smoked - CARDIAC Hx Atrial Fibrillation: No Hx Cardia Arrhythmia: No Hx Congestive Heart Failure: No Hx Hypercholesterolemia: No Hx Hypertension: Yes Hx Mitral Valve Prolapse: No Hx Pacemaker: No Hx Peripheral Edema: No - PULMONARY Hx Asthma: Yes (CHILDHOOD NO MEDS) Hx Bronchitis: No Hx Chronic Obstructive Pulmonary Disease (COPD): No Hx Emphysema: No Hx Pneumonia: Yes (Childhood) Hx Pulmonary Embolism: No Hx Sleep Apnea: No - NEUROLOGICAL Hx Neurological Disorder: No - HEENT Hx HEENT Problems: No Other/Comment: GLASSES - RENAL Hx Chronic Kidney Disease: No - ENDOCRINE/METABOLIC Hx Endocrine Disorders: No - HEMATOLOGICAL/ONCOLOGICAL Hx Cancer: Yes (breast 2018; mets to bone) Other/Comment: in chemotherapy every wednesday - INTEGUMENTARY Hx Dermatological Problems: No - MUSCULOSKELETAL/RHEUMATOLOGICAL Hx Fractures: Yes (TOE/ARM NO SURGERY) - GENITOURINARY/GYNECOLOGICAL Hx Genitourinary Disorders: Yes Other/Comment: right breast cancer - PSYCHIATRIC Hx Substance Use: No - SURGICAL HISTORY Hx Surgeries: Yes Hx Section: Yes (one) Other/Comment: breast removal s/p breast ca july 2014. - ANESTHESIA Hx Anesthesia: Yes Hx Anesthesia Reactions: No Hx Malignant Hyperthermia: No Meds Allergies/Adverse Reactions: Allergies Allergy/AdvReac Type Severity Reaction Status Date / Time No Known Allergies Allergy Verified 02/23/18 14:57 - Medications Medications: Current Medications Metronidazole (Flagyl) 500 mg in 100 mls @ 100 mls/hr IVPB Q12 SARAH; Protocol Piperacillin Sod/Tazobactam Sod (Zosyn 3.375 Gm Iv Premix) 3.375 gm in 50 mls @ 100 mls/hr IVPB Q8 SARAH; Protocol Vancomycin HCl 1 gm/ Sodium (Chloride) 250 mls @ 166.7 mls/hr IVPB Q24H SARAH; Protocol Pantoprazole Sodium (Protonix Inj) 40 mg IVP DAILY SARAH Physical Exam - Constitutional Appears: No Acute Distress - Head Exam Additional comments: hair loss s/p chemo/radiation - ENT Exam ENT Exam: Mucous Membranes Moist - Respiratory Exam Respiratory Exam: NORMAL BREATHING PATTERN - Cardiovascular Exam Cardiovascular Exam: Tachycardia - GI/Abdominal Exam GI & Abdominal Exam: Soft, Tenderness (generalized ). absent: Distended, Rebound - Neurological Exam Neurological exam: Alert, Oriented x3 - Skin Skin Exam: Dry, Warm Results - Vital Signs Recent Vital Signs: Last Vital Signs Temp 99.1 F 04/11/18 19:34 Pulse 130 H 04/11/18 19:34 Resp 28 H 04/11/18 19:34 BP 148/75 04/11/18 19:34 Pulse Ox 100 04/11/18 19:34 - Labs Result Diagrams: 04/11/18 17:57 04/11/18 17:57 Labs: Laboratory Results - last 24 hr 04/11/18 04/11/18 04/11/18 11:31 11:31 11:35 WBC 8.7 D RBC 3.58 L Hgb 9.4 L D Hct 29.2 L MCV 81.6 MCH 26.3 L MCHC 32.3 L RDW 19.7 H Plt Count 75 L D MPV 8.0 Neut % (Auto) 77.0 H Lymph % (Auto) 21.0 [place] % (Auto) 2.0 Eos % (Auto) 0.0 Baso % (Auto) 0.0 Neut # (Auto) 6.7 Lymph # (Auto) 1.8 [place] # (Auto) 0.2 Eos # (Auto) 0.0 Baso # (Auto) 0.0 Neutrophils % (Manual) 68 Band Neutrophils % 8 H Lymphocytes % (Manual) 21 Monocytes % (Manual) 2 Metamyelocytes % 1 H Differential Comment Platelet Estimate Decreased L Hypochromasia (manual) Slight Poikilocytosis (manual Slight Anisocytosis (manual) Slight Microcytosis (manual) Slight Macrocytosis (manual) Slight Target Cells Slight Tear Drop Cells Slight Ovalocytes Slight PT INR APTT pO2 14 L VBG pH 7.42 VBG pCO2 50 VBG HCO3 27.9 VBG Total CO2 33.9 H VBG O2 Sat (Calc) 20.3 L VBG Base Excess 6.6 H VBG Potassium 3.0 L Glucose 127 H Lactate 2.8 H Sodium 136 139.0 Potassium 3.1 L Chloride 97 L 103.0 Carbon Dioxide 30 Anion Gap 13 BUN 14 Creatinine 0.4 L Est GFR ( Amer) > 60 Est GFR (Non-Af Amer) > 60 Random Glucose 130 H D Calcium 8.2 L Total Bilirubin 1.4 H AST 31 ALT 21 Alkaline Phosphatase 82 Troponin I < 0.0120 Total Protein 7.3 Albumin 3.7 Globulin 3.6 Albumin/Globulin Ratio 1.0 Lipase < 10 L Venous Blood Potassium 3.0 L Urine Color Urine Clarity Urine pH Ur Specific [place] Urine Protein Urine Glucose (UA) Urine Ketones Urine Blood Urine Nitrate Urine Bilirubin Urine Urobilinogen Ur Leukocyte Esterase Urine WBC (Auto) Urine RBC (Auto) Ur Squamous Epith Cells Influenza Typ A,B (EIA) Blood Type Antibody Screen 04/11/18 04/11/18 04/11/18 14:00 15:32 15:54 WBC RBC Hgb Hct MCV MCH MCHC RDW Plt Count MPV Neut % (Auto) Lymph % (Auto) [place] % (Auto) Eos % (Auto) Baso % (Auto) Neut # (Auto) Lymph # (Auto) [place] # (Auto) Eos # (Auto) Baso # (Auto) Neutrophils % (Manual) Band Neutrophils % Lymphocytes % (Manual) Monocytes % (Manual) Metamyelocytes % Differential Comment Platelet Estimate Hypochromasia (manual) Poikilocytosis (manual Anisocytosis (manual) Microcytosis (manual) Macrocytosis (manual) Target Cells Tear Drop Cells Ovalocytes PT 18.4 H INR 1.7 APTT 30 pO2 18 L VBG pH 7.45 H VBG pCO2 45 VBG HCO3 28.1 VBG Total CO2 32.7 H VBG O2 Sat (Calc) 35.4 L VBG Base Excess 6.4 H VBG Potassium 2.7 L Glucose 120 H Lactate 2.5 H Sodium 143.0 Potassium Chloride 105.0 Carbon Dioxide Anion Gap BUN Creatinine Est GFR ( Amer) Est GFR (Non-Af Amer) Random Glucose Calcium Total Bilirubin AST ALT Alkaline Phosphatase Troponin I Total Protein Albumin Globulin Albumin/Globulin Ratio Lipase Venous Blood Potassium 2.7 L Urine Color Yellow Urine Clarity Hazy Urine pH 6.0 Ur Specific [place] 1.028 Urine Protein 2+ H Urine Glucose (UA) Normal Urine Ketones Trace Urine Blood 2+ H Urine Nitrate Negative Urine Bilirubin Negative Urine Urobilinogen Normal Ur Leukocyte Esterase Neg Urine WBC (Auto) 15 H Urine RBC (Auto) 13 H Ur Squamous Epith Cells 1 Influenza Typ A,B (EIA) Blood Type Antibody Screen 04/11/18 04/11/18 04/11/18 17:57 17:57 17:57 WBC 0.7 L* D RBC 3.13 L Hgb 8.0 L Hct 25.6 L MCV 82.0 MCH 25.5 L MCHC 31.1 L RDW 20.6 H Plt Count 33 L D MPV 8.3 Neut % (Auto) 80.6 H Lymph % (Auto) 16.6 L [place] % (Auto) 2.1 Eos % (Auto) 0.2 Baso % (Auto) 0.5 Neut # (Auto) 0.5 L Lymph # (Auto) 0.1 L [place] # (Auto) 0.0 Eos # (Auto) 0.0 Baso # (Auto) 0.0 Neutrophils % (Manual) Band Neutrophils % Lymphocytes % (Manual) Monocytes % (Manual) Metamyelocytes % Differential Comment Platelet Estimate Hypochromasia (manual) Poikilocytosis (manual Anisocytosis (manual) Microcytosis (manual) Macrocytosis (manual) Target Cells Tear Drop Cells Ovalocytes PT INR APTT pO2 VBG pH VBG pCO2 VBG HCO3 VBG Total CO2 VBG O2 Sat (Calc) VBG Base Excess VBG Potassium Glucose Lactate Sodium 137 Potassium 3.0 L Chloride 100 Carbon Dioxide 29 Anion Gap 11 BUN 12 Creatinine 0.4 L Est GFR ( Amer) > 60 Est GFR (Non-Af Amer) > 60 Random Glucose 135 H Calcium 7.4 L Total Bilirubin 1.1 AST 20 ALT 24 Alkaline Phosphatase 73 Troponin I Total Protein 5.9 L Albumin 2.9 L D Globulin 3.1 Albumin/Globulin Ratio 0.9 L Lipase Venous Blood Potassium Urine Color Urine Clarity Urine pH Ur Specific [place] Urine Protein Urine Glucose (UA) Urine Ketones Urine Blood Urine Nitrate Urine Bilirubin Urine Urobilinogen Ur Leukocyte Esterase Urine WBC (Auto) Urine RBC (Auto) Ur Squamous Epith Cells Influenza Typ A,B (EIA) Blood Type O POSITIVE Antibody Screen Negative 04/11/18 18:35 WBC RBC Hgb Hct MCV MCH MCHC RDW Plt Count MPV Neut % (Auto) Lymph % (Auto) [place] % (Auto) Eos % (Auto) Baso % (Auto) Neut # (Auto) Lymph # (Auto) [place] # (Auto) Eos # (Auto) Baso # (Auto) Neutrophils % (Manual) Band Neutrophils % Lymphocytes % (Manual) Monocytes % (Manual) Metamyelocytes % Differential Comment Platelet Estimate Hypochromasia (manual) Poikilocytosis (manual Anisocytosis (manual) Microcytosis (manual) Macrocytosis (manual) Target Cells Tear Drop Cells Ovalocytes PT INR APTT pO2 VBG pH VBG pCO2 VBG HCO3 VBG Total CO2 VBG O2 Sat (Calc) VBG Base Excess VBG Potassium Glucose Lactate Sodium Potassium Chloride Carbon Dioxide Anion Gap BUN Creatinine Est GFR ( Amer) Est GFR (Non-Af Amer) Random Glucose Calcium Total Bilirubin AST ALT Alkaline Phosphatase Troponin I Total Protein Albumin Globulin Albumin/Globulin Ratio Lipase Venous Blood Potassium Urine Color Urine Clarity Urine pH Ur Specific [place] Urine Protein Urine Glucose (UA) Urine Ketones Urine Blood Urine Nitrate Urine Bilirubin Urine Urobilinogen Ur Leukocyte Esterase Urine WBC (Auto) Urine RBC (Auto) Ur Squamous Epith Cells Influenza Typ A,B (EIA) Negative for flu a/b Blood Type Antibody Screen - Imaging and Cardiology CT scan - abdomen Status: Image reviewed by me, Report reviewed by me Assessment & Plan - Assessment and Plan (Free Text) Assessment: 58F with pancytopenia and abdominal pain r/o pancolitis Plan: - monitor pt in the ICU - rec insert ku catheter for strict I&Os - monitor H/H - GI on board f/u recs - Start IVF resuscitation and broad spectrum IV ABX - serial abdominal exams - will continue to follow and manage conservatively as pt is not a surgical candidate at this time - d/w Dr. Renee Rod <Wilber Duran - Last Filed: 04/22/18 20:46> Meds - Medications Medications: Current Medications Calcium Carbonate (Oscal) 500 mg PO DAILY [facility] Last Admin: 04/22/18 10:44 Dose: 500 mg Piperacillin Sod/Tazobactam (Sod 3.375 gm/ Sodium Chloride) 100 mls @ 200 mls/hr IVPB Q8H [facility]; Protocol Last Admin: 04/22/18 19:04 Dose: 200 mls/hr Fluconazole (Diflucan Iv 200 Mg/100 Ml Ns) 100 mls @ 100 mls/hr IVPB Q24H SAARH; Protocol Last Admin: 04/22/18 10:45 Dose: 100 mls/hr Potassium Chloride/Dextrose/Sod Cl (Potassium Chl 20 Meq In D5-1/2ns) 1,000 mls @ 50 mls/hr IV .Q20H [facility] Last Admin: 04/22/18 10:54 Dose: Not Given Midodrine (Proamatine) 5 mg PO TID [facility] Last Admin: 04/22/18 18:01 Dose: 5 mg Morphine Sulfate (Morphine) 2 mg IV Q2H PRN PRN Reason: Pain, moderate (4-7) Last Admin: 04/22/18 12:21 Dose: 2 mg Pantoprazole Sodium (Protonix Inj) 40 mg IVP Q12H [facility] Last Admin: 04/22/18 08:55 Dose: 40 mg Saliva Substitute (First Magic Mouthwash) 10 ml PO Q6 [facility] Last Admin: 04/22/18 18:07 Dose: Not Given Results - Vital Signs Recent Vital Signs: Last Vital Signs Temp 98.1 F 04/22/18 15:15 Pulse 105 H 04/22/18 15:15 Resp 20 04/22/18 15:15 BP 103/62 04/22/18 15:15 Pulse Ox 98 04/22/18 15:15 - Labs Result Diagrams: 04/22/18 07:16 04/21/18 07:23 Labs: Laboratory Results - last 24 hr 04/21/18 04/22/18 04/22/18 17:21 02:06 06:18 WBC RBC Hgb Hct MCV MCH MCHC RDW Plt Count MPV Neut % (Auto) Lymph % (Auto) [place] % (Auto) Eos % (Auto) Baso % (Auto) Neut # (Auto) Lymph # (Auto) [place] # (Auto) Eos # (Auto) Baso # (Auto) POC Glucose (mg/dL) 89 86 90 Magnesium 04/22/18 04/22/18 04/22/18 07:16 07:16 11:15 WBC 2.6 L RBC 2.90 L Hgb 8.0 L Hct 24.0 L MCV 82.9 MCH 27.8 MCHC 33.5 RDW 17.8 H Plt Count 100 L MPV 7.2 Neut % (Auto) 64.4 Lymph % (Auto) 17.1 L [place] % (Auto) 17.8 H Eos % (Auto) 0.0 Baso % (Auto) 0.7 Neut # (Auto) 1.6 L Lymph # (Auto) 0.4 L [place] # (Auto) 0.5 Eos # (Auto) 0.0 Baso # (Auto) 0.0 POC Glucose (mg/dL) 91 Magnesium 1.3 L Attending/Attestation - Attestation I have personally seen and examined this patient.: Yes I have fully participated in the care of the patient.: Yes I have reviewed all pertinent clinical information: Yes Notes (Text): Pt was seen and examined at bedside Agree with above note and assessment Pt with diarrhea, abdominal pain and nausea Abdomen: Soft, Tender in RUQ, ND Labs and radiology reviewed Ass: Pancolitis Plan: Clear liquid diet GI consult IV antibiotics c.w current mx Plan d.w pt in detail Risk and benefit explained in detail.
[2018-04-11] MEDS: Lactated Ringer's 1,000 ML IV SCH (21:30)
[2018-04-11] MEDS ORDERED: metroNIDAZOLE IV 500 mg/100 ml 500 MG/100 ML BAG IVPB SCH (22:00)
[2018-04-11] MEDS ORDERED: Piperacill/Tazo 3.375gm in Dex 3.375 GM/50 ML BAG IVPB SCH (22:00)
[2018-04-11] MEDS: Cefepime IV 2 gm in Dextrose 2 GM/100 ML BAG IVPB SCH (22:50)
[2018-04-11] MEDS: Magnesium Sulfate 1 gm in D5W 1 GM/100 ML BAG IVPB SCH ×2 (23:15→23:49)
--- NOTE | 2018-04-11 23:33 | CP.PCM.HP ---
Past Patient History - Infectious Disease Hx of Infectious Diseases: None - Past Medical History & Family History Past Medical History?: Yes - Past Social History Smoking Status: Never Smoked - CARDIAC Hx Atrial Fibrillation: No Hx Cardia Arrhythmia: No Hx Congestive Heart Failure: No Hx Hypercholesterolemia: No Hx Hypertension: Yes Hx Mitral Valve Prolapse: No Hx Pacemaker: No Hx Peripheral Edema: No - PULMONARY Hx Asthma: Yes (CHILDHOOD NO MEDS) Hx Bronchitis: No Hx Chronic Obstructive Pulmonary Disease (COPD): No Hx Emphysema: No Hx Pneumonia: Yes (Childhood) Hx Pulmonary Embolism: No Hx Sleep Apnea: No - NEUROLOGICAL Hx Neurological Disorder: No - HEENT Hx HEENT Problems: No Other/Comment: GLASSES - RENAL Hx Chronic Kidney Disease: No - ENDOCRINE/METABOLIC Hx Endocrine Disorders: No - HEMATOLOGICAL/ONCOLOGICAL Hx Cancer: Yes (breast 2018; mets to bone) Other/Comment: in chemotherapy every wednesday - INTEGUMENTARY Hx Dermatological Problems: No - MUSCULOSKELETAL/RHEUMATOLOGICAL Hx Fractures: Yes (TOE/ARM NO SURGERY) - GENITOURINARY/GYNECOLOGICAL Hx Genitourinary Disorders: Yes Other/Comment: right breast cancer - PSYCHIATRIC Hx Substance Use: No - SURGICAL HISTORY Hx Surgeries: Yes Hx Section: Yes (one) Other/Comment: breast removal s/p breast ca july 2014. - ANESTHESIA Hx Anesthesia: Yes Hx Anesthesia Reactions: No Hx Malignant Hyperthermia: No Meds Allergies/Adverse Reactions: Allergies Allergy/AdvReac Type Severity Reaction Status Date / Time No Known Allergies Allergy Verified 02/23/18 14:57 Results - Vital Signs Recent Vital Signs: Last Vital Signs Temp 98.6 F 04/11/18 20:57 Pulse 117 H 04/11/18 21:00 Resp 23 04/11/18 21:00 BP 135/82 04/11/18 20:56 Pulse Ox 94 L 04/11/18 21:00 - Labs Result Diagrams: 04/11/18 17:57 04/11/18 17:57 Labs: Laboratory Results - last 24 hr 04/11/18 04/11/18 04/11/18 11:31 11:31 11:35 WBC 8.7 D RBC 3.58 L Hgb 9.4 L D Hct 29.2 L MCV 81.6 MCH 26.3 L MCHC 32.3 L RDW 19.7 H Plt Count 75 L D MPV 8.0 Neut % (Auto) 77.0 H Lymph % (Auto) 21.0 [place] % (Auto) 2.0 Eos % (Auto) 0.0 Baso % (Auto) 0.0 Neut # (Auto) 6.7 Lymph # (Auto) 1.8 [place] # (Auto) 0.2 Eos # (Auto) 0.0 Baso # (Auto) 0.0 Neutrophils % (Manual) 68 Band Neutrophils % 8 H Lymphocytes % (Manual) 21 Monocytes % (Manual) 2 Metamyelocytes % 1 H Differential Comment Platelet Estimate Decreased L Hypochromasia (manual) Slight Poikilocytosis (manual Slight Anisocytosis (manual) Slight Microcytosis (manual) Slight Macrocytosis (manual) Slight Target Cells Slight Tear Drop Cells Slight Ovalocytes Slight PT INR APTT pO2 14 L VBG pH 7.42 VBG pCO2 50 VBG HCO3 27.9 VBG Total CO2 33.9 H VBG O2 Sat (Calc) 20.3 L VBG Base Excess 6.6 H VBG Potassium 3.0 L Glucose 127 H Lactate 2.8 H Sodium 136 139.0 Potassium 3.1 L Chloride 97 L 103.0 Carbon Dioxide 30 Anion Gap 13 BUN 14 Creatinine 0.4 L Est GFR ( Amer) > 60 Est GFR (Non-Af Amer) > 60 POC Glucose (mg/dL) Random Glucose 130 H D Lactic Acid Calcium 8.2 L Phosphorus Magnesium Total Bilirubin 1.4 H AST 31 ALT 21 Alkaline Phosphatase 82 Troponin I < 0.0120 Total Protein 7.3 Albumin 3.7 Globulin 3.6 Albumin/Globulin Ratio 1.0 Lipase < 10 L Venous Blood Potassium 3.0 L Urine Color Urine Clarity Urine pH Ur Specific [place] Urine Protein Urine Glucose (UA) Urine Ketones Urine Blood Urine Nitrate Urine Bilirubin Urine Urobilinogen Ur Leukocyte Esterase Urine WBC (Auto) Urine RBC (Auto) Ur Squamous Epith Cells Influenza Typ A,B (EIA) Blood Type Antibody Screen 04/11/18 04/11/18 04/11/18 14:00 15:32 15:54 WBC RBC Hgb Hct MCV MCH MCHC RDW Plt Count MPV Neut % (Auto) Lymph % (Auto) [place] % (Auto) Eos % (Auto) Baso % (Auto) Neut # (Auto) Lymph # (Auto) [place] # (Auto) Eos # (Auto) Baso # (Auto) Neutrophils % (Manual) Band Neutrophils % Lymphocytes % (Manual) Monocytes % (Manual) Metamyelocytes % Differential Comment Platelet Estimate Hypochromasia (manual) Poikilocytosis (manual Anisocytosis (manual) Microcytosis (manual) Macrocytosis (manual) Target Cells Tear Drop Cells Ovalocytes PT 18.4 H INR 1.7 APTT 30 pO2 18 L VBG pH 7.45 H VBG pCO2 45 VBG HCO3 28.1 VBG Total CO2 32.7 H VBG O2 Sat (Calc) 35.4 L VBG Base Excess 6.4 H VBG Potassium 2.7 L Glucose 120 H Lactate 2.5 H Sodium 143.0 Potassium Chloride 105.0 Carbon Dioxide Anion Gap BUN Creatinine Est GFR ( Amer) Est GFR (Non-Af Amer) POC Glucose (mg/dL) Random Glucose Lactic Acid Calcium Phosphorus Magnesium Total Bilirubin AST ALT Alkaline Phosphatase Troponin I Total Protein Albumin Globulin Albumin/Globulin Ratio Lipase Venous Blood Potassium 2.7 L Urine Color Yellow Urine Clarity Hazy Urine pH 6.0 Ur Specific [place] 1.028 Urine Protein 2+ H Urine Glucose (UA) Normal Urine Ketones Trace Urine Blood 2+ H Urine Nitrate Negative Urine Bilirubin Negative Urine Urobilinogen Normal Ur Leukocyte Esterase Neg Urine WBC (Auto) 15 H Urine RBC (Auto) 13 H Ur Squamous Epith Cells 1 Influenza Typ A,B (EIA) Blood Type Antibody Screen 04/11/18 04/11/18 04/11/18 17:57 17:57 17:57 WBC 0.7 L* D RBC 3.13 L Hgb 8.0 L Hct 25.6 L MCV 82.0 MCH 25.5 L MCHC 31.1 L RDW 20.6 H Plt Count 33 L D MPV 8.3 Neut % (Auto) 80.6 H Lymph % (Auto) 16.6 L [place] % (Auto) 2.1 Eos % (Auto) 0.2 Baso % (Auto) 0.5 Neut # (Auto) 0.5 L Lymph # (Auto) 0.1 L [place] # (Auto) 0.0 Eos # (Auto) 0.0 Baso # (Auto) 0.0 Neutrophils % (Manual) Band Neutrophils % Lymphocytes % (Manual) Monocytes % (Manual) Metamyelocytes % Differential Comment Platelet Estimate Hypochromasia (manual) Poikilocytosis (manual Anisocytosis (manual) Microcytosis (manual) Macrocytosis (manual) Target Cells Tear Drop Cells Ovalocytes PT INR APTT pO2 VBG pH VBG pCO2 VBG HCO3 VBG Total CO2 VBG O2 Sat (Calc) VBG Base Excess VBG Potassium Glucose Lactate Sodium 137 Potassium 3.0 L Chloride 100 Carbon Dioxide 29 Anion Gap 11 BUN 12 Creatinine 0.4 L Est GFR ( Amer) > 60 Est GFR (Non-Af Amer) > 60 POC Glucose (mg/dL) Random Glucose 135 H Lactic Acid Calcium 7.4 L Phosphorus Magnesium Total Bilirubin 1.1 AST 20 ALT 24 Alkaline Phosphatase 73 Troponin I Total Protein 5.9 L Albumin 2.9 L D Globulin 3.1 Albumin/Globulin Ratio 0.9 L Lipase Venous Blood Potassium Urine Color Urine Clarity Urine pH Ur Specific [place] Urine Protein Urine Glucose (UA) Urine Ketones Urine Blood Urine Nitrate Urine Bilirubin Urine Urobilinogen Ur Leukocyte Esterase Urine WBC (Auto) Urine RBC (Auto) Ur Squamous Epith Cells Influenza Typ A,B (EIA) Blood Type O POSITIVE Antibody Screen Negative 04/11/18 04/11/18 04/11/18 17:57 18:35 23:08 WBC RBC Hgb Hct MCV MCH MCHC RDW Plt Count MPV Neut % (Auto) Lymph % (Auto) [place] % (Auto) Eos % (Auto) Baso % (Auto) Neut # (Auto) Lymph # (Auto) [place] # (Auto) Eos # (Auto) Baso # (Auto) Neutrophils % (Manual) Band Neutrophils % Lymphocytes % (Manual) Monocytes % (Manual) Metamyelocytes % Differential Comment Platelet Estimate Hypochromasia (manual) Poikilocytosis (manual Anisocytosis (manual) Microcytosis (manual) Macrocytosis (manual) Target Cells Tear Drop Cells Ovalocytes PT INR APTT pO2 VBG pH VBG pCO2 VBG HCO3 VBG Total CO2 VBG O2 Sat (Calc) VBG Base Excess VBG Potassium Glucose Lactate Sodium Potassium Chloride Carbon Dioxide Anion Gap BUN Creatinine Est GFR ( Amer) Est GFR (Non-Af Amer) POC Glucose (mg/dL) 157 H Random Glucose Lactic Acid Calcium Phosphorus 1.9 L Magnesium 1.2 L Total Bilirubin AST ALT Alkaline Phosphatase Troponin I Total Protein Albumin Globulin Albumin/Globulin Ratio Lipase Venous Blood Potassium Urine Color Urine Clarity Urine pH Ur Specific [place] Urine Protein Urine Glucose (UA) Urine Ketones Urine Blood Urine Nitrate Urine Bilirubin Urine Urobilinogen Ur Leukocyte Esterase Urine WBC (Auto) Urine RBC (Auto) Ur Squamous Epith Cells Influenza Typ A,B (EIA) Negative for flu a/b Blood Type Antibody Screen 04/11/18 23:11 WBC RBC Hgb Hct MCV MCH MCHC RDW Plt Count MPV Neut % (Auto) Lymph % (Auto) [place] % (Auto) Eos % (Auto) Baso % (Auto) Neut # (Auto) Lymph # (Auto) [place] # (Auto) Eos # (Auto) Baso # (Auto) Neutrophils % (Manual) Band Neutrophils % Lymphocytes % (Manual) Monocytes % (Manual) Metamyelocytes % Differential Comment Platelet Estimate Hypochromasia (manual) Poikilocytosis (manual Anisocytosis (manual) Microcytosis (manual) Macrocytosis (manual) Target Cells Tear Drop Cells Ovalocytes PT INR APTT pO2 VBG pH VBG pCO2 VBG HCO3 VBG Total CO2 VBG O2 Sat (Calc) VBG Base Excess VBG Potassium Glucose Lactate Sodium Potassium Chloride Carbon Dioxide Anion Gap BUN Creatinine Est GFR ( Amer) Est GFR (Non-Af Amer) POC Glucose (mg/dL) Random Glucose Lactic Acid 1.4 Calcium Phosphorus Magnesium Total Bilirubin AST ALT Alkaline Phosphatase Troponin I Total Protein Albumin Globulin Albumin/Globulin Ratio Lipase Venous Blood Potassium Urine Color Urine Clarity Urine pH Ur Specific [place] Urine Protein Urine Glucose (UA) Urine Ketones Urine Blood Urine Nitrate Urine Bilirubin Urine Urobilinogen Ur Leukocyte Esterase Urine WBC (Auto) Urine RBC (Auto) Ur Squamous Epith Cells Influenza Typ A,B (EIA) Blood Type Antibody Screen
[2018-04-11] MEDS: metroNIDAZOLE IV 500 mg/100 ml 500 MG/100 ML BAG IVPB SCH (23:50)
[2018-04-12] MEDS ORDERED: Sodium Phosphate 15 MMOLE in Sodium Chloride 0.9% 250 ML IVPB ONE (01:00)
[2018-04-12] MEDS: Vancomycin 1 gm/NS 200 ml 1 GM/200 ML BAG IVPB SCH ×2 (01:30→16:19)
[2018-04-12] MEDS: Cefepime IV 2 gm in Dextrose 2 GM/100 ML BAG IVPB SCH ×3 (05:11→23:27)
[2018-04-12 06:30] LABS: BASO % 0.1 % (0.0-2.0); EOS % 0.2 % (0.0-4.0); HEMOGLOBIN 8.4 g/dL (11.0-16.0); LYMPH # 0.2 K/uL (1.0-4.3); LYMPH % 13.1 % (20.0-40.0); MEAN CELL VOLUME 82.6 fL (81.0-99.0); MEAN CORPUSCULAR HEMOGLOBIN 27.4 pg (27.0-31.0); MEAN CORPUSCULAR HGB CONC 33.2 g/dL (33.0-37.0); MEAN PLATELET VOLUME 7.4 fL (7.2-11.7); MONO % 2.3 % (0.0-10.0); NEUT % 84.3 % (50.0-75.0); RBC 3.06 Mil/uL (3.80-5.20); RED CELL DISTRIBUTION WIDTH 17.9 % (11.5-14.5)
[2018-04-12 06:34] LABS: INR 1.5; PROTHROMBIN TIME 16.8 SECONDS (9.7-12.2)
[2018-04-12 06:42] LABS: ALBUMIN 2.9 g/dL (3.5-5.0); ALT/SGPT 23 U/L (9-52); AST/SGOT 22 U/L (14-36); BLOOD UREA NITROGEN 10 mg/dL (7-17); CALCIUM 7.3 mg/dl (8.6-10.4); GFR NON-AFRICAN AMERICAN > 60
[2018-04-12 06:48] LABS: WHITE BLOOD COUNT 1.2 K/uL (4.8-10.8)
--- NOTE | 2018-04-12 07:15 | CP.PCM.PN ---
<LouiejessieMando - Last Filed: 04/12/18 08:44> Subjective - Date & Time of Evaluation Date of Evaluation: 04/12/18 Time of Evaluation: 07:12 - Subjective Subjective: General Surgery Progress Note for Dr. Duran 58F seen and evaluated at bedside this morning. Patient received 2u PRBCs and 2 FFP overnight. She had one bloody bowel movement per nurse. She continues to have mild abdominal pain. Denies f/c, n/v, SOB, CP, palpitations, or urinary symptoms. Objective - Vital Signs/Intake and Output Vital Signs (last 24 hours): Temp Pulse Resp BP Pulse Ox 98.3 F 103 H 25 H 114/62 100 04/12/18 02:30 04/12/18 04:41 04/12/18 04:41 04/12/18 04:41 04/12/18 04:40 Intake and Output: 04/12/18 04/12/18 06:59 18:59 Intake Total 3000 Balance 3000 - Medications Medications: Current Medications Vancomycin/Sodium Chloride (Vancomycin 1 Gm/Ns 200 Ml) 1 gm in 200 mls @ 133.333 mls/hr IVPB Q12H SARAH; Protocol Stop: 04/17/18 01:56 Last Admin: 04/12/18 01:30 Dose: 133.333 mls/hr Cefepime HCl (Maxipime Iv 2 Gm Premix) 2 gm in 100 mls @ 100 mls/hr IVPB Q8H SC [facility]; Protocol Stop: 04/16/18 21:31 Last Admin: 04/12/18 05:11 Dose: 100 mls/hr Lactated Ringer's (Lactated Ringer's) 1,000 mls @ 100 mls/hr IV .Q10H SARAH Last Admin: 04/11/18 21:30 Dose: 100 mls/hr Metronidazole (Flagyl) 500 mg in 100 mls @ 100 mls/hr IVPB Q8H [facility]; Protocol Last Admin: 04/11/18 23:50 Dose: 100 mls/hr Morphine Sulfate (Morphine) 2 mg IVP Q4 PRN PRN Reason: Pain, moderate (4-7) Last Admin: 04/12/18 03:12 Dose: 2 mg Pantoprazole Sodium (Protonix Inj) 40 mg IVP Q12H [facility]AH Last Admin: 04/11/18 20:30 Dose: 40 mg - Labs Labs: 04/12/18 06:10 04/12/18 06:10 PT 16.8 SECONDS (9.7-12.2) H 04/12/18 06:10 INR 1.5 04/12/18 06:10 APTT 28 SECONDS (21-34) 04/12/18 06:10 - Constitutional Appears: Non-toxic, No Acute Distress - Head Exam Head Exam: ATRAUMATIC, NORMAL INSPECTION, NORMOCEPHALIC - Eye Exam Eye Exam: EOMI - ENT Exam ENT Exam: Mucous Membranes Moist - Respiratory Exam Respiratory Exam: NORMAL BREATHING PATTERN. absent: Respiratory Distress - GI/Abdominal Exam GI & Abdominal Exam: Soft, Tenderness, Normal Bowel Sounds. absent: Distended, Guarding, Rebound - Neurological Exam Neurological Exam: Alert, Awake, Oriented x3 - Psychiatric Exam Psychiatric exam: Normal Affect, Normal Mood - Skin Skin Exam: Dry, Intact, Normal Color, Warm Assessment and Plan - Assessment and Plan (Free Text) Assessment: 58F with pancytopenia and abdominal pain, bloody bowel movements r/o pancolitis Plan: Monitor H/H Monitor vitals F/u GI recommendations IVF IV Abx Transfuse as needed AM labs Recommend IR consult for workup of psoas collection Pending hospice evaluation Further recommendations per Dr. Renee Dockery PGY1 <Wilber Duran B - Last Filed: 04/22/18 20:47> Objective - Vital Signs/Intake and Output Vital Signs (last 24 hours): Temp Pulse Resp BP Pulse Ox 98.1 F 105 H 20 103/62 98 04/22/18 15:15 04/22/18 15:15 04/22/18 15:15 04/22/18 15:15 04/22/18 15:15 Intake and Output: 04/22/18 04/23/18 18:59 06:59 Intake Total 780 Output Total 1000 Balance -220 - Medications Medications: Current Medications Calcium Carbonate (Oscal) 500 mg PO DAILY [facility] Last Admin: 04/22/18 10:44 Dose: 500 mg Piperacillin Sod/Tazobactam (Sod 3.375 gm/ Sodium Chloride) 100 mls @ 200 mls/hr IVPB Q8H [facility]; Protocol Last Admin: 04/22/18 19:04 Dose: 200 mls/hr Fluconazole (Diflucan Iv 200 Mg/100 Ml Ns) 100 mls @ 100 mls/hr IVPB Q24H [facility]; Protocol Last Admin: 04/22/18 10:45 Dose: 100 mls/hr Potassium Chloride/Dextrose/Sod Cl (Potassium Chl 20 Meq In D5-1/2ns) 1,000 mls @ 50 mls/hr IV .Q20H [facility] Last Admin: 04/22/18 10:54 Dose: Not Given Midodrine (Proamatine) 5 mg PO TID [facility] Last Admin: 04/22/18 18:01 Dose: 5 mg Morphine Sulfate (Morphine) 2 mg IV Q2H PRN PRN Reason: Pain, moderate (4-7) Last Admin: 04/22/18 12:21 Dose: 2 mg Pantoprazole Sodium (Protonix Inj) 40 mg IVP Q12H [facility] Last Admin: 04/22/18 08:55 Dose: 40 mg Saliva Substitute (First Magic Mouthwash) 10 ml PO Q6 [facility] Last Admin: 04/22/18 18:07 Dose: Not Given - Labs Labs: 04/22/18 07:16 04/21/18 07:23 PT 16.8 SECONDS (9.7-12.2) H 04/12/18 06:10 INR 1.5 04/12/18 06:10 APTT 28 SECONDS (21-34) 04/12/18 06:10 Attending/Attestation - Attestation I have personally seen and examined this patient.: Yes I have fully participated in the care of the patient.: Yes I have reviewed all pertinent clinical information, including history, physical exam and plan: Yes Notes (Text): Pt was seen and examined at bedside Agree with above note and assessment Pt is same clinically Change antibiotics to meropenam ID consult Plan d.w pt in detail
[2018-04-12] MEDS: Lactated Ringer's 1,000 ML IV SCH ×2 (07:23→20:02)
--- NOTE | 2018-04-12 07:40 | CP.CCUPN ---
<Eleni Bran - Last Filed: 04/12/18 11:07> CCU Subjective - Physician Review Subjective (Free Text): 04/12/18 11:17 ICU Progress Note for Dr. Tsai 58 y/o female with metastatic breast cancer to the lungs, brain and bones on chemo, asthma, and HTN, presented to the ED 04/11 with abdominal pain x 4 days and GI bleed. Patient also found to have severe leukopenia and thrombocytopenia. Patient currently in the ICU. DNR/DNI with hospice consult. This morning patient states she is "not doing well." She still c/o lower abdominal pain. Patient also endorses bowel incontinence. Patient currently NPO, but she has been having appetite loss and is not hungry. Occasional nausea, which patient attributes to chemo, but no vomiting. She regularly gets chemo every Wed and regularly seen by her heme onc outpatient physician Dr. Gibson. Patient otherwise denies fever, chills, night sweats, HERNANDEZ. Palliative care consult was placed, however, patient already had hospice consult by night test borer helper. Palliative care was able to set up a family meeting at 2pm. Patient's father will be attending the meeting per palliative care. CCU Objective - Vital Signs / Intake & Output Vital Signs (Last 4 hours): Vital Signs Pulse Resp BP Pulse Ox 04/12/18 04:41 103 H 25 H 114/62 04/12/18 04:40 104 H 24 100 04/12/18 04:30 107 H 21 99 04/12/18 04:28 107 H 23 107/68 100 04/12/18 04:20 105 H 22 96 04/12/18 04:12 111 H 27 H 104/54 L 04/12/18 04:10 109 H 34 H 04/12/18 04:00 113 H 33 H 94 L 04/12/18 03:56 104 H 23 118/78 04/12/18 03:50 104 H 21 Intake and Output (Last 8hrs): Intake & Output 04/11/18 04/12/18 04/12/18 22:59 06:59 14:59 Intake Total 1200 1800 Output Total 600 Balance 1200 1200 Weight 216 lb 0.848 oz Intake: Intake, IV Amount 600 1150 Left Port-A-Cath 600 1150 Blood Product 600 650 Red Blood Cells Cpd As1 325 Lr Unit [id number] Red Blood Cells Cpd As1 325 Lr Unit [id number] Output: Urine 600 Urine, Voided 600 Other: # Bowel Movements 4 - Physical Exam Head: Positive for: Atraumatic, Normocephalic Nose (External): Positive for: Atraumatic Neck: Negative for: Lymphadenopathy Respiratory/Chest: Positive for: Clear to Auscultation (patient got agitated when attempting to lean her forward, so only listened to lung clements anteriorly). Negative for: Respiratory Distress, Accessory Muscle Use Cardiovascular: Positive for: Regular Rate and Rhythm (mild tachycardia), Murmurs (soft holosystolic murmur throughout all listening posts) Abdomen: Positive for: Tenderness. Negative for: Normal Bowel Sounds (hypoactive bowel sounds), Peritoneal Signs, Rebound Rectal: Positive for: Other (deferred) Upper Extremity: Positive for: Edema (nonpitting edema), NORMAL PULSES, Other (hands cool to touch. 1/5 UE strength.). Negative for: Normal Inspection Lower Extremity: Positive for: Edema (nonpitting), CALF TENDERNESS, Other (feet cool to touch. Patient unable to lift legs off the bed.). Negative for: Normal Inspection Psychiatric: Positive for: Alert, Depressed Mood (patient tearful at times of exam) - Medications Active Medications: Active Medications Generic Name Dose Route Start Last Admin Trade Name Freq PRN Reason Stop Dose Admin Vancomycin/Sodium Chloride 1 gm in 200 mls @ 133.333 mls/hr 04/12/18 01:55 04/12/18 01:30 Vancomycin 1 Gm/Ns 200 Ml IVPB 04/17/18 01:56 133.333 mls/hr Q12H SARAH Administration Protocol Cefepime HCl 2 gm in 100 mls @ 100 mls/hr 04/11/18 21:30 04/12/18 05:11 Maxipime Iv 2 Gm Premix IVPB 04/16/18 21:31 100 mls/hr Q8H SARAH Administration Protocol Lactated Ringer's 1,000 mls @ 100 mls/hr 04/11/18 21:00 04/12/18 07:23 Lactated Ringer's IV Not Given .Q10H SARAH Metronidazole 500 mg in 100 mls @ 100 mls/hr 04/12/18 00:00 04/11/18 23:50 Flagyl IVPB 100 mls/hr Q8H SARAH Administration Protocol Potassium Phosphate 30 mmole/ 260 mls @ 42.5 mls/hr 04/12/18 07:26 Sodium Chloride IVPB 04/12/18 13:33 ONCE ONE Morphine Sulfate 2 mg 04/11/18 22:22 04/12/18 03:12 Morphine IVP 2 mg Q4 PRN Administration Pain, moderate (4-7) Pantoprazole Sodium 40 mg 04/11/18 20:30 04/11/18 20:30 Protonix Inj IVP 40 mg Q12H SARAH Administration - Patient Studies Lab Studies: Microbiology Studies 04/11/18 20:01 Gram Stain - Final Buttock Lab Studies 04/12/18 04/12/18 04/12/18 Range/Units 06:10 06:10 06:10 WBC (4.8-10.8) K/uL RBC (3.80-5.20) Mil/uL Hgb (11.0-16.0) g/dL Hct (34.0-47.0) % MCV (81.0-99.0) fL MCH (27.0-31.0) pg MCHC (33.0-37.0) g/dL RDW (11.5-14.5) % Plt Count (130-400) K/uL MPV (7.2-11.7) fL Neut % (Auto) (50.0-75.0) % Lymph % (Auto) (20.0-40.0) % [place] % (Auto) (0.0-10.0) % Eos % (Auto) (0.0-4.0) % Baso % (Auto) (0.0-2.0) % Neut # (Auto) (1.8-7.0) K/uL Lymph # (Auto) (1.0-4.3) K/uL [place] # (Auto) (0.0-0.8) K/uL Eos # (Auto) (0.0-0.7) K/uL Baso # (Auto) (0.0-0.2) K/uL Neutrophils % (Manual) (50-75) % Band Neutrophils % (0-2) % Lymphocytes % (Manual) (20-40) % Monocytes % (Manual) (0-10) % Metamyelocytes % (0-0) % Differential Comment Platelet Estimate (NORMAL) Hypochromasia (manual) Poikilocytosis (manual Anisocytosis (manual) Microcytosis (manual) Macrocytosis (manual) Target Cells Tear Drop Cells Ovalocytes PT 16.8 H (9.7-12.2) SECONDS INR 1.5 APTT 28 (21-34) SECONDS pO2 (30-55) mm/Hg VBG pH (7.32-7.43) VBG pCO2 (40-60) mmHg VBG HCO3 mmol/L VBG Total CO2 (22-28) mmol/L VBG O2 Sat (Calc) (40-65) % VBG Base Excess (0.0-2.0) mmol/L VBG Potassium (3.6-5.2) mmol/L Glucose (65-105) mg/dl Lactate (0.7-2.1) mmol/L Sodium (132-148) mmol/L Potassium (3.6-5.2) mmol/L Chloride (98-107) mmol/L Carbon Dioxide (22-30) mmol/L Anion Gap (10-20) BUN (7-17) mg/dL Creatinine (0.7-1.2) mg/dL Est GFR ( Amer) Est GFR (Non-Af Amer) POC Glucose (mg/dL) 105 (65-110) mg/dL Random Glucose (65-105) mg/dL Lactic Acid 1.2 (0.7-2.1) mmol/L Calcium (8.6-10.4) mg/dl Phosphorus (2.5-4.5) mg/dL Magnesium (1.6-2.3) mg/dL Total Bilirubin (0.2-1.3) mg/dL AST (14-36) U/L ALT (9-52) U/L Alkaline Phosphatase (38-126) U/L Troponin I (0.00-0.120) ng/mL Total Protein (6.3-8.3) g/dL Albumin (3.5-5.0) g/dL Globulin (2.2-3.9) gm/dL Albumin/Globulin Ratio (1.0-2.1) Lipase (23-300) U/L Venous Blood Potassium (3.6-5.2) mmol/L Urine Color (YELLOW) Urine Clarity (Clear) Urine pH (5.0-8.0) Ur Specific [place] (1.003-1.030) Urine Protein (NEGATIVE) mg/dL Urine Glucose (UA) (Normal) mg/dL Urine Ketones (NEGATIVE) mg/dL Urine Blood (NEGATIVE) Urine Nitrate (NEGATIVE) Urine Bilirubin (NEGATIVE) Urine Urobilinogen (0.2-1.0) mg/dL Ur Leukocyte Esterase (Negative) Spike/uL Urine WBC (Auto) (0-5) /hpf Urine RBC (Auto) (0-3) /hpf Ur Squamous Epith Cells (0-5) /hpf Influenza Typ A,B (EIA) (NEGATIVE) Blood Type Antibody Screen 04/12/18 04/12/18 04/11/18 Range/Units 06:10 06:10 23:11 WBC 1.2 L* D (4.8-10.8) K/uL RBC 3.06 L (3.80-5.20) Mil/uL Hgb 8.4 L (11.0-16.0) g/dL Hct 25.3 L (34.0-47.0) % MCV 82.6 (81.0-99.0) fL MCH 27.4 (27.0-31.0) pg MCHC 33.2 (33.0-37.0) g/dL RDW 17.9 H (11.5-14.5) % Plt Count 22 L* D (130-400) K/uL MPV 7.4 (7.2-11.7) fL Neut % (Auto) 84.3 H (50.0-75.0) % Lymph % (Auto) 13.1 L (20.0-40.0) % Quay % (Auto) 2.3 (0.0-10.0) % Eos % (Auto) 0.2 (0.0-4.0) % Baso % (Auto) 0.1 (0.0-2.0) % Neut # (Auto) 1.0 L (1.8-7.0) K/uL Lymph # (Auto) 0.2 L (1.0-4.3) K/uL Quay # (Auto) 0.0 (0.0-0.8) K/uL Eos # (Auto) 0.0 (0.0-0.7) K/uL Baso # (Auto) 0.0 (0.0-0.2) K/uL Neutrophils % (Manual) (50-75) % Band Neutrophils % (0-2) % Lymphocytes % (Manual) (20-40) % Monocytes % (Manual) (0-10) % Metamyelocytes % (0-0) % Differential Comment Platelet Estimate (NORMAL) Hypochromasia (manual) Poikilocytosis (manual Anisocytosis (manual) Microcytosis (manual) Macrocytosis (manual) Target Cells Tear Drop Cells Ovalocytes PT (9.7-12.2) SECONDS INR APTT (21-34) SECONDS pO2 (30-55) mm/Hg VBG pH (7.32-7.43) VBG pCO2 (40-60) mmHg VBG HCO3 mmol/L VBG Total CO2 (22-28) mmol/L VBG O2 Sat (Calc) (40-65) % VBG Base Excess (0.0-2.0) mmol/L VBG Potassium (3.6-5.2) mmol/L Glucose (65-105) mg/dl Lactate (0.7-2.1) mmol/L Sodium 136 (132-148) mmol/L Potassium 2.7 L (3.6-5.2) mmol/L Chloride 101 (98-107) mmol/L Carbon Dioxide 28 (22-30) mmol/L Anion Gap 11 (10-20) BUN 10 (7-17) mg/dL Creatinine 0.3 L (0.7-1.2) mg/dL Est GFR ( Amer) > 60 Est GFR (Non-Af Amer) > 60 POC Glucose (mg/dL) (65-110) mg/dL Random Glucose 121 H (65-105) mg/dL Lactic Acid 1.4 (0.7-2.1) mmol/L Calcium 7.3 L (8.6-10.4) mg/dl Phosphorus 2.0 L (2.5-4.5) mg/dL Magnesium 1.5 L (1.6-2.3) mg/dL Total Bilirubin 1.8 H (0.2-1.3) mg/dL AST 22 (14-36) U/L ALT 23 (9-52) U/L Alkaline Phosphatase 73 (38-126) U/L Troponin I (0.00-0.120) ng/mL Total Protein 5.9 L (6.3-8.3) g/dL Albumin 2.9 L (3.5-5.0) g/dL Globulin 3.0 (2.2-3.9) gm/dL Albumin/Globulin Ratio 1.0 (1.0-2.1) Lipase (23-300) U/L Venous Blood Potassium (3.6-5.2) mmol/L Urine Color (YELLOW) Urine Clarity (Clear) Urine pH (5.0-8.0) Ur Specific [place] (1.003-1.030) Urine Protein (NEGATIVE) mg/dL Urine Glucose (UA) (Normal) mg/dL Urine Ketones (NEGATIVE) mg/dL Urine Blood (NEGATIVE) Urine Nitrate (NEGATIVE) Urine Bilirubin (NEGATIVE) Urine Urobilinogen (0.2-1.0) mg/dL Ur Leukocyte Esterase (Negative) Spike/uL Urine WBC (Auto) (0-5) /hpf Urine RBC (Auto) (0-3) /hpf Ur Squamous Epith Cells (0-5) /hpf Influenza Typ A,B (EIA) (NEGATIVE) Blood Type Antibody Screen 04/11/18 04/11/18 04/11/18 Range/Units 23:08 18:35 17:57 WBC (4.8-10.8) K/uL RBC (3.80-5.20) Mil/uL Hgb (11.0-16.0) g/dL Hct (34.0-47.0) % MCV (81.0-99.0) fL MCH (27.0-31.0) pg MCHC (33.0-37.0) g/dL RDW (11.5-14.5) % Plt Count (130-400) K/uL MPV (7.2-11.7) fL Neut % (Auto) (50.0-75.0) % Lymph % (Auto) (20.0-40.0) % Quay % (Auto) (0.0-10.0) % Eos % (Auto) (0.0-4.0) % Baso % (Auto) (0.0-2.0) % Neut # (Auto) (1.8-7.0) K/uL Lymph # (Auto) (1.0-4.3) K/uL Quay # (Auto) (0.0-0.8) K/uL Eos # (Auto) (0.0-0.7) K/uL Baso # (Auto) (0.0-0.2) K/uL Neutrophils % (Manual) (50-75) % Band Neutrophils % (0-2) % Lymphocytes % (Manual) (20-40) % Monocytes % (Manual) (0-10) % Metamyelocytes % (0-0) % Differential Comment Platelet Estimate (NORMAL) Hypochromasia (manual) Poikilocytosis (manual Anisocytosis (manual) Microcytosis (manual) Macrocytosis (manual) Target Cells Tear Drop Cells Ovalocytes PT (9.7-12.2) SECONDS INR APTT (21-34) SECONDS pO2 (30-55) mm/Hg VBG pH (7.32-7.43) VBG pCO2 (40-60) mmHg VBG HCO3 mmol/L VBG Total CO2 (22-28) mmol/L VBG O2 Sat (Calc) (40-65) % VBG Base Excess (0.0-2.0) mmol/L VBG Potassium (3.6-5.2) mmol/L Glucose (65-105) mg/dl Lactate (0.7-2.1) mmol/L Sodium (132-148) mmol/L Potassium (3.6-5.2) mmol/L Chloride (98-107) mmol/L Carbon Dioxide (22-30) mmol/L Anion Gap (10-20) BUN (7-17) mg/dL Creatinine (0.7-1.2) mg/dL Est GFR ( Amer) Est GFR (Non-Af Amer) POC Glucose (mg/dL) 157 H (65-110) mg/dL Random Glucose (65-105) mg/dL Lactic Acid (0.7-2.1) mmol/L Calcium (8.6-10.4) mg/dl Phosphorus 1.9 L (2.5-4.5) mg/dL Magnesium 1.2 L (1.6-2.3) mg/dL Total Bilirubin (0.2-1.3) mg/dL AST (14-36) U/L ALT (9-52) U/L Alkaline Phosphatase (38-126) U/L Troponin I (0.00-0.120) ng/mL Total Protein (6.3-8.3) g/dL Albumin (3.5-5.0) g/dL Globulin (2.2-3.9) gm/dL Albumin/Globulin Ratio (1.0-2.1) Lipase (23-300) U/L Venous Blood Potassium (3.6-5.2) mmol/L Urine Color (YELLOW) Urine Clarity (Clear) Urine pH (5.0-8.0) Ur Specific [place] (1.003-1.030) Urine Protein (NEGATIVE) mg/dL Urine Glucose (UA) (Normal) mg/dL Urine Ketones (NEGATIVE) mg/dL Urine Blood (NEGATIVE) Urine Nitrate (NEGATIVE) Urine Bilirubin (NEGATIVE) Urine Urobilinogen (0.2-1.0) mg/dL Ur Leukocyte Esterase (Negative) Spike/uL Urine WBC (Auto) (0-5) /hpf Urine RBC (Auto) (0-3) /hpf Ur Squamous Epith Cells (0-5) /hpf Influenza Typ A,B (EIA) Negative for flu a/b (NEGATIVE) Blood Type Antibody Screen 04/11/18 04/11/18 04/11/18 Range/Units 17:57 17:57 17:57 WBC 0.7 L* D (4.8-10.8) K/uL RBC 3.13 L (3.80-5.20) Mil/uL Hgb 8.0 L (11.0-16.0) g/dL Hct 25.6 L (34.0-47.0) % MCV 82.0 (81.0-99.0) fL MCH 25.5 L (27.0-31.0) pg MCHC 31.1 L (33.0-37.0) g/dL RDW 20.6 H (11.5-14.5) % Plt Count 33 L D (130-400) K/uL MPV 8.3 (7.2-11.7) fL Neut % (Auto) 80.6 H (50.0-75.0) % Lymph % (Auto) 16.6 L (20.0-40.0) % [place] % (Auto) 2.1 (0.0-10.0) % Eos % (Auto) 0.2 (0.0-4.0) % Baso % (Auto) 0.5 (0.0-2.0) % Neut # (Auto) 0.5 L (1.8-7.0) K/uL Lymph # (Auto) 0.1 L (1.0-4.3) K/uL [place] # (Auto) 0.0 (0.0-0.8) K/uL Eos # (Auto) 0.0 (0.0-0.7) K/uL Baso # (Auto) 0.0 (0.0-0.2) K/uL Neutrophils % (Manual) (50-75) % Band Neutrophils % (0-2) % Lymphocytes % (Manual) (20-40) % Monocytes % (Manual) (0-10) % Metamyelocytes % (0-0) % Differential Comment Platelet Estimate (NORMAL) Hypochromasia (manual) Poikilocytosis (manual Anisocytosis (manual) Microcytosis (manual) Macrocytosis (manual) Target Cells Tear Drop Cells Ovalocytes PT (9.7-12.2) SECONDS INR APTT (21-34) SECONDS pO2 (30-55) mm/Hg VBG pH (7.32-7.43) VBG pCO2 (40-60) mmHg VBG HCO3 mmol/L VBG Total CO2 (22-28) mmol/L VBG O2 Sat (Calc) (40-65) % VBG Base Excess (0.0-2.0) mmol/L VBG Potassium (3.6-5.2) mmol/L Glucose (65-105) mg/dl Lactate (0.7-2.1) mmol/L Sodium 137 (132-148) mmol/L Potassium 3.0 L (3.6-5.2) mmol/L Chloride 100 (98-107) mmol/L Carbon Dioxide 29 (22-30) mmol/L Anion Gap 11 (10-20) BUN 12 (7-17) mg/dL Creatinine 0.4 L (0.7-1.2) mg/dL Est GFR ( Amer) > 60 Est GFR (Non-Af Amer) > 60 POC Glucose (mg/dL) (65-110) mg/dL Random Glucose 135 H (65-105) mg/dL Lactic Acid (0.7-2.1) mmol/L Calcium 7.4 L (8.6-10.4) mg/dl Phosphorus (2.5-4.5) mg/dL Magnesium (1.6-2.3) mg/dL Total Bilirubin 1.1 (0.2-1.3) mg/dL AST 20 (14-36) U/L ALT 24 (9-52) U/L Alkaline Phosphatase 73 (38-126) U/L Troponin I (0.00-0.120) ng/mL Total Protein 5.9 L (6.3-8.3) g/dL Albumin 2.9 L D (3.5-5.0) g/dL Globulin 3.1 (2.2-3.9) gm/dL Albumin/Globulin Ratio 0.9 L (1.0-2.1) Lipase (23-300) U/L Venous Blood Potassium (3.6-5.2) mmol/L Urine Color (YELLOW) Urine Clarity (Clear) Urine pH (5.0-8.0) Ur Specific [place] (1.003-1.030) Urine Protein (NEGATIVE) mg/dL Urine Glucose (UA) (Normal) mg/dL Urine Ketones (NEGATIVE) mg/dL Urine Blood (NEGATIVE) Urine Nitrate (NEGATIVE) Urine Bilirubin (NEGATIVE) Urine Urobilinogen (0.2-1.0) mg/dL Ur Leukocyte Esterase (Negative) Spike/uL Urine WBC (Auto) (0-5) /hpf Urine RBC (Auto) (0-3) /hpf Ur Squamous Epith Cells (0-5) /hpf Influenza Typ A,B (EIA) (NEGATIVE) Blood Type O POSITIVE Antibody Screen Negative 04/11/18 04/11/18 04/11/18 Range/Units 15:54 15:32 14:00 WBC (4.8-10.8) K/uL RBC (3.80-5.20) Mil/uL Hgb (11.0-16.0) g/dL Hct (34.0-47.0) % MCV (81.0-99.0) fL MCH (27.0-31.0) pg MCHC (33.0-37.0) g/dL RDW (11.5-14.5) % Plt Count (130-400) K/uL MPV (7.2-11.7) fL Neut % (Auto) (50.0-75.0) % Lymph % (Auto) (20.0-40.0) % [place] % (Auto) (0.0-10.0) % Eos % (Auto) (0.0-4.0) % Baso % (Auto) (0.0-2.0) % Neut # (Auto) (1.8-7.0) K/uL Lymph # (Auto) (1.0-4.3) K/uL [place] # (Auto) (0.0-0.8) K/uL Eos # (Auto) (0.0-0.7) K/uL Baso # (Auto) (0.0-0.2) K/uL Neutrophils % (Manual) (50-75) % Band Neutrophils % (0-2) % Lymphocytes % (Manual) (20-40) % Monocytes % (Manual) (0-10) % Metamyelocytes % (0-0) % Differential Comment Platelet Estimate (NORMAL) Hypochromasia (manual) Poikilocytosis (manual Anisocytosis (manual) Microcytosis (manual) Macrocytosis (manual) Target Cells Tear Drop Cells Ovalocytes PT 18.4 H (9.7-12.2) SECONDS INR 1.7 APTT 30 (21-34) SECONDS pO2 18 L (30-55) mm/Hg VBG pH 7.45 H (7.32-7.43) VBG pCO2 45 (40-60) mmHg VBG HCO3 28.1 mmol/L VBG Total CO2 32.7 H (22-28) mmol/L VBG O2 Sat (Calc) 35.4 L (40-65) % VBG Base Excess 6.4 H (0.0-2.0) mmol/L VBG Potassium 2.7 L (3.6-5.2) mmol/L Glucose 120 H (65-105) mg/dl Lactate 2.5 H (0.7-2.1) mmol/L Sodium 143.0 (132-148) mmol/L Potassium (3.6-5.2) mmol/L Chloride 105.0 (98-107) mmol/L Carbon Dioxide (22-30) mmol/L Anion Gap (10-20) BUN (7-17) mg/dL Creatinine (0.7-1.2) mg/dL Est GFR ( Amer) Est GFR (Non-Af Amer) POC Glucose (mg/dL) (65-110) mg/dL Random Glucose (65-105) mg/dL Lactic Acid (0.7-2.1) mmol/L Calcium (8.6-10.4) mg/dl Phosphorus (2.5-4.5) mg/dL Magnesium (1.6-2.3) mg/dL Total Bilirubin (0.2-1.3) mg/dL AST (14-36) U/L ALT (9-52) U/L Alkaline Phosphatase (38-126) U/L Troponin I (0.00-0.120) ng/mL Total Protein (6.3-8.3) g/dL Albumin (3.5-5.0) g/dL Globulin (2.2-3.9) gm/dL Albumin/Globulin Ratio (1.0-2.1) Lipase (23-300) U/L Venous Blood Potassium 2.7 L (3.6-5.2) mmol/L Urine Color Yellow (YELLOW) Urine Clarity Hazy (Clear) Urine pH 6.0 (5.0-8.0) Ur Specific [place] 1.028 (1.003-1.030) Urine Protein 2+ H (NEGATIVE) mg/dL Urine Glucose (UA) Normal (Normal) mg/dL Urine Ketones Trace (NEGATIVE) mg/dL Urine Blood 2+ H (NEGATIVE) Urine Nitrate Negative (NEGATIVE) Urine Bilirubin Negative (NEGATIVE) Urine Urobilinogen Normal (0.2-1.0) mg/dL Ur Leukocyte Esterase Neg (Negative) Spike/uL Urine WBC (Auto) 15 H (0-5) /hpf Urine RBC (Auto) 13 H (0-3) /hpf Ur Squamous Epith Cells 1 (0-5) /hpf Influenza Typ A,B (EIA) (NEGATIVE) Blood Type Antibody Screen 04/11/18 04/11/18 04/11/18 Range/Units 11:35 11:31 11:31 WBC 8.7 D (4.8-10.8) K/uL RBC 3.58 L (3.80-5.20) Mil/uL Hgb 9.4 L D (11.0-16.0) g/dL Hct 29.2 L (34.0-47.0) % MCV 81.6 (81.0-99.0) fL MCH 26.3 L (27.0-31.0) pg MCHC 32.3 L (33.0-37.0) g/dL RDW 19.7 H (11.5-14.5) % Plt Count 75 L D (130-400) K/uL MPV 8.0 (7.2-11.7) fL Neut % (Auto) 77.0 H (50.0-75.0) % Lymph % (Auto) 21.0 (20.0-40.0) % [place] % (Auto) 2.0 (0.0-10.0) % Eos % (Auto) 0.0 (0.0-4.0) % Baso % (Auto) 0.0 (0.0-2.0) % Neut # (Auto) 6.7 (1.8-7.0) K/uL Lymph # (Auto) 1.8 (1.0-4.3) K/uL [place] # (Auto) 0.2 (0.0-0.8) K/uL Eos # (Auto) 0.0 (0.0-0.7) K/uL Baso # (Auto) 0.0 (0.0-0.2) K/uL Neutrophils % (Manual) 68 (50-75) % Band Neutrophils % 8 H (0-2) % Lymphocytes % (Manual) 21 (20-40) % Monocytes % (Manual) 2 (0-10) % Metamyelocytes % 1 H (0-0) % Differential Comment Platelet Estimate Decreased L (NORMAL) Hypochromasia (manual) Slight Poikilocytosis (manual Slight Anisocytosis (manual) Slight Microcytosis (manual) Slight Macrocytosis (manual) Slight Target Cells Slight Tear Drop Cells Slight Ovalocytes Slight PT (9.7-12.2) SECONDS INR APTT (21-34) SECONDS pO2 14 L (30-55) mm/Hg VBG pH 7.42 (7.32-7.43) VBG pCO2 50 (40-60) mmHg VBG HCO3 27.9 mmol/L VBG Total CO2 33.9 H (22-28) mmol/L VBG O2 Sat (Calc) 20.3 L (40-65) % VBG Base Excess 6.6 H (0.0-2.0) mmol/L VBG Potassium 3.0 L (3.6-5.2) mmol/L Glucose 127 H (65-105) mg/dl Lactate 2.8 H (0.7-2.1) mmol/L Sodium 139.0 136 (132-148) mmol/L Potassium 3.1 L (3.6-5.2) mmol/L Chloride 103.0 97 L (98-107) mmol/L Carbon Dioxide 30 (22-30) mmol/L Anion Gap 13 (10-20) BUN 14 (7-17) mg/dL Creatinine 0.4 L (0.7-1.2) mg/dL Est GFR ( Amer) > 60 Est GFR (Non-Af Amer) > 60 POC Glucose (mg/dL) (65-110) mg/dL Random Glucose 130 H D (65-105) mg/dL Lactic Acid (0.7-2.1) mmol/L Calcium 8.2 L (8.6-10.4) mg/dl Phosphorus (2.5-4.5) mg/dL Magnesium (1.6-2.3) mg/dL Total Bilirubin 1.4 H (0.2-1.3) mg/dL AST 31 (14-36) U/L ALT 21 (9-52) U/L Alkaline Phosphatase 82 (38-126) U/L Troponin I < 0.0120 (0.00-0.120) ng/mL Total Protein 7.3 (6.3-8.3) g/dL Albumin 3.7 (3.5-5.0) g/dL Globulin 3.6 (2.2-3.9) gm/dL Albumin/Globulin Ratio 1.0 (1.0-2.1) Lipase < 10 L (23-300) U/L Venous Blood Potassium 3.0 L (3.6-5.2) mmol/L Urine Color (YELLOW) Urine Clarity (Clear) Urine pH (5.0-8.0) Ur Specific [place] (1.003-1.030) Urine Protein (NEGATIVE) mg/dL Urine Glucose (UA) (Normal) mg/dL Urine Ketones (NEGATIVE) mg/dL Urine Blood (NEGATIVE) Urine Nitrate (NEGATIVE) Urine Bilirubin (NEGATIVE) Urine Urobilinogen (0.2-1.0) mg/dL Ur Leukocyte Esterase (Negative) Spike/uL Urine WBC (Auto) (0-5) /hpf Urine RBC (Auto) (0-3) /hpf Ur Squamous Epith Cells (0-5) /hpf Influenza Typ A,B (EIA) (NEGATIVE) Blood Type Antibody Screen Laboratory Results - last 24 hr 04/11/18 04/11/18 04/11/18 11:31 11:31 11:35 WBC 8.7 D RBC 3.58 L Hgb 9.4 L D Hct 29.2 L MCV 81.6 MCH 26.3 L MCHC 32.3 L RDW 19.7 H Plt Count 75 L D MPV 8.0 Neut % (Auto) 77.0 H Lymph % (Auto) 21.0 Quay % (Auto) 2.0 Eos % (Auto) 0.0 Baso % (Auto) 0.0 Neut # (Auto) 6.7 Lymph # (Auto) 1.8 Quay # (Auto) 0.2 Eos # (Auto) 0.0 Baso # (Auto) 0.0 Neutrophils % (Manual) 68 Band Neutrophils % 8 H Lymphocytes % (Manual) 21 Monocytes % (Manual) 2 Metamyelocytes % 1 H Differential Comment Platelet Estimate Decreased L Hypochromasia (manual) Slight Poikilocytosis (manual Slight Anisocytosis (manual) Slight Microcytosis (manual) Slight Macrocytosis (manual) Slight Target Cells Slight Tear Drop Cells Slight Ovalocytes Slight PT INR APTT pO2 14 L VBG pH 7.42 VBG pCO2 50 VBG HCO3 27.9 VBG Total CO2 33.9 H VBG O2 Sat (Calc) 20.3 L VBG Base Excess 6.6 H VBG Potassium 3.0 L Glucose 127 H Lactate 2.8 H Sodium 136 139.0 Potassium 3.1 L Chloride 97 L 103.0 Carbon Dioxide 30 Anion Gap 13 BUN 14 Creatinine 0.4 L Est GFR ( Amer) > 60 Est GFR (Non-Af Amer) > 60 POC Glucose (mg/dL) Random Glucose 130 H D Lactic Acid Calcium 8.2 L Phosphorus Magnesium Total Bilirubin 1.4 H AST 31 ALT 21 Alkaline Phosphatase 82 Troponin I < 0.0120 Total Protein 7.3 Albumin 3.7 Globulin 3.6 Albumin/Globulin Ratio 1.0 Lipase < 10 L Venous Blood Potassium 3.0 L Urine Color Urine Clarity Urine pH Ur Specific [place] Urine Protein Urine Glucose (UA) Urine Ketones Urine Blood Urine Nitrate Urine Bilirubin Urine Urobilinogen Ur Leukocyte Esterase Urine WBC (Auto) Urine RBC (Auto) Ur Squamous Epith Cells Influenza Typ A,B (EIA) Blood Type Antibody Screen 04/11/18 04/11/18 04/11/18 14:00 15:32 15:54 WBC RBC Hgb Hct MCV MCH MCHC RDW Plt Count MPV Neut % (Auto) Lymph % (Auto) [place] % (Auto) Eos % (Auto) Baso % (Auto) Neut # (Auto) Lymph # (Auto) [place] # (Auto) Eos # (Auto) Baso # (Auto) Neutrophils % (Manual) Band Neutrophils % Lymphocytes % (Manual) Monocytes % (Manual) Metamyelocytes % Differential Comment Platelet Estimate Hypochromasia (manual) Poikilocytosis (manual Anisocytosis (manual) Microcytosis (manual) Macrocytosis (manual) Target Cells Tear Drop Cells Ovalocytes PT 18.4 H INR 1.7 APTT 30 pO2 18 L VBG pH 7.45 H VBG pCO2 45 VBG HCO3 28.1 VBG Total CO2 32.7 H VBG O2 Sat (Calc) 35.4 L VBG Base Excess 6.4 H VBG Potassium 2.7 L Glucose 120 H Lactate 2.5 H Sodium 143.0 Potassium Chloride 105.0 Carbon Dioxide Anion Gap BUN Creatinine Est GFR ( Amer) Est GFR (Non-Af Amer) POC Glucose (mg/dL) Random Glucose Lactic Acid Calcium Phosphorus Magnesium Total Bilirubin AST ALT Alkaline Phosphatase Troponin I Total Protein Albumin Globulin Albumin/Globulin Ratio Lipase Venous Blood Potassium 2.7 L Urine Color Yellow Urine Clarity Hazy Urine pH 6.0 Ur Specific [place] 1.028 Urine Protein 2+ H Urine Glucose (UA) Normal Urine Ketones Trace Urine Blood 2+ H Urine Nitrate Negative Urine Bilirubin Negative Urine Urobilinogen Normal Ur Leukocyte Esterase Neg Urine WBC (Auto) 15 H Urine RBC (Auto) 13 H Ur Squamous Epith Cells 1 Influenza Typ A,B (EIA) Blood Type Antibody Screen 01/07/19 01/07/19 01/07/19 17:57 17:57 17:57 WBC 0.7 L* D RBC 3.13 L Hgb 8.0 L Hct 25.6 L MCV 82.0 MCH 25.5 L MCHC 31.1 L RDW 20.6 H Plt Count 33 L D MPV 8.3 Neut % (Auto) 80.6 H Lymph % (Auto) 16.6 L [place] % (Auto) 2.1 Eos % (Auto) 0.2 Baso % (Auto) 0.5 Neut # (Auto) 0.5 L Lymph # (Auto) 0.1 L [place] # (Auto) 0.0 Eos # (Auto) 0.0 Baso # (Auto) 0.0 Neutrophils % (Manual) Band Neutrophils % Lymphocytes % (Manual) Monocytes % (Manual) Metamyelocytes % Differential Comment Platelet Estimate Hypochromasia (manual) Poikilocytosis (manual Anisocytosis (manual) Microcytosis (manual) Macrocytosis (manual) Target Cells Tear Drop Cells Ovalocytes PT INR APTT pO2 VBG pH VBG pCO2 VBG HCO3 VBG Total CO2 VBG O2 Sat (Calc) VBG Base Excess VBG Potassium Glucose Lactate Sodium 137 Potassium 3.0 L Chloride 100 Carbon Dioxide 29 Anion Gap 11 BUN 12 Creatinine 0.4 L Est GFR ( Amer) > 60 Est GFR (Non-Af Amer) > 60 POC Glucose (mg/dL) Random Glucose 135 H Lactic Acid Calcium 7.4 L Phosphorus Magnesium Total Bilirubin 1.1 AST 20 ALT 24 Alkaline Phosphatase 73 Troponin I Total Protein 5.9 L Albumin 2.9 L D Globulin 3.1 Albumin/Globulin Ratio 0.9 L Lipase Venous Blood Potassium Urine Color Urine Clarity Urine pH Ur Specific [place] Urine Protein Urine Glucose (UA) Urine Ketones Urine Blood Urine Nitrate Urine Bilirubin Urine Urobilinogen Ur Leukocyte Esterase Urine WBC (Auto) Urine RBC (Auto) Ur Squamous Epith Cells Influenza Typ A,B (EIA) Blood Type O POSITIVE Antibody Screen Negative 04/11/18 04/11/18 04/11/18 17:57 18:35 23:08 WBC RBC Hgb Hct MCV MCH MCHC RDW Plt Count MPV Neut % (Auto) Lymph % (Auto) Quay % (Auto) Eos % (Auto) Baso % (Auto) Neut # (Auto) Lymph # (Auto) Quay # (Auto) Eos # (Auto) Baso # (Auto) Neutrophils % (Manual) Band Neutrophils % Lymphocytes % (Manual) Monocytes % (Manual) Metamyelocytes % Differential Comment Platelet Estimate Hypochromasia (manual) Poikilocytosis (manual Anisocytosis (manual) Microcytosis (manual) Macrocytosis (manual) Target Cells Tear Drop Cells Ovalocytes PT INR APTT pO2 VBG pH VBG pCO2 VBG HCO3 VBG Total CO2 VBG O2 Sat (Calc) VBG Base Excess VBG Potassium Glucose Lactate Sodium Potassium Chloride Carbon Dioxide Anion Gap BUN Creatinine Est GFR ( Amer) Est GFR (Non-Af Amer) POC Glucose (mg/dL) 157 H Random Glucose Lactic Acid Calcium Phosphorus 1.9 L Magnesium 1.2 L Total Bilirubin AST ALT Alkaline Phosphatase Troponin I Total Protein Albumin Globulin Albumin/Globulin Ratio Lipase Venous Blood Potassium Urine Color Urine Clarity Urine pH Ur Specific [place] Urine Protein Urine Glucose (UA) Urine Ketones Urine Blood Urine Nitrate Urine Bilirubin Urine Urobilinogen Ur Leukocyte Esterase Urine WBC (Auto) Urine RBC (Auto) Ur Squamous Epith Cells Influenza Typ A,B (EIA) Negative for flu a/b Blood Type Antibody Screen 04/11/18 04/12/18 04/12/18 23:11 06:10 06:10 WBC 1.2 L* D RBC 3.06 L Hgb 8.4 L Hct 25.3 L MCV 82.6 MCH 27.4 MCHC 33.2 RDW 17.9 H Plt Count 22 L* D MPV 7.4 Neut % (Auto) 84.3 H Lymph % (Auto) 13.1 L Quay % (Auto) 2.3 Eos % (Auto) 0.2 Baso % (Auto) 0.1 Neut # (Auto) 1.0 L Lymph # (Auto) 0.2 L Quay # (Auto) 0.0 Eos # (Auto) 0.0 Baso # (Auto) 0.0 Neutrophils % (Manual) Band Neutrophils % Lymphocytes % (Manual) Monocytes % (Manual) Metamyelocytes % Differential Comment Platelet Estimate Hypochromasia (manual) Poikilocytosis (manual Anisocytosis (manual) Microcytosis (manual) Macrocytosis (manual) Target Cells Tear Drop Cells Ovalocytes PT INR APTT pO2 VBG pH VBG pCO2 VBG HCO3 VBG Total CO2 VBG O2 Sat (Calc) VBG Base Excess VBG Potassium Glucose Lactate Sodium 136 Potassium 2.7 L Chloride 101 Carbon Dioxide 28 Anion Gap 11 BUN 10 Creatinine 0.3 L Est GFR ( Amer) > 60 Est GFR (Non-Af Amer) > 60 POC Glucose (mg/dL) Random Glucose 121 H Lactic Acid 1.4 Calcium 7.3 L Phosphorus 2.0 L Magnesium 1.5 L Total Bilirubin 1.8 H AST 22 ALT 23 Alkaline Phosphatase 73 Troponin I Total Protein 5.9 L Albumin 2.9 L Globulin 3.0 Albumin/Globulin Ratio 1.0 Lipase Venous Blood Potassium Urine Color Urine Clarity Urine pH Ur Specific [place] Urine Protein Urine Glucose (UA) Urine Ketones Urine Blood Urine Nitrate Urine Bilirubin Urine Urobilinogen Ur Leukocyte Esterase Urine WBC (Auto) Urine RBC (Auto) Ur Squamous Epith Cells Influenza Typ A,B (EIA) Blood Type Antibody Screen 04/12/18 04/12/18 04/12/18 06:10 06:10 06:10 WBC RBC Hgb Hct MCV MCH MCHC RDW Plt Count MPV Neut % (Auto) Lymph % (Auto) Quay % (Auto) Eos % (Auto) Baso % (Auto) Neut # (Auto) Lymph # (Auto) Quay # (Auto) Eos # (Auto) Baso # (Auto) Neutrophils % (Manual) Band Neutrophils % Lymphocytes % (Manual) Monocytes % (Manual) Metamyelocytes % Differential Comment Platelet Estimate Hypochromasia (manual) Poikilocytosis (manual Anisocytosis (manual) Microcytosis (manual) Macrocytosis (manual) Target Cells Tear Drop Cells Ovalocytes PT 16.8 H INR 1.5 APTT 28 pO2 VBG pH VBG pCO2 VBG HCO3 VBG Total CO2 VBG O2 Sat (Calc) VBG Base Excess VBG Potassium Glucose Lactate Sodium Potassium Chloride Carbon Dioxide Anion Gap BUN Creatinine Est GFR ( Amer) Est GFR (Non-Af Amer) POC Glucose (mg/dL) 105 Random Glucose Lactic Acid 1.2 Calcium Phosphorus Magnesium Total Bilirubin AST ALT Alkaline Phosphatase Troponin I Total Protein Albumin Globulin Albumin/Globulin Ratio Lipase Venous Blood Potassium Urine Color Urine Clarity Urine pH Ur Specific [place] Urine Protein Urine Glucose (UA) Urine Ketones Urine Blood Urine Nitrate Urine Bilirubin Urine Urobilinogen Ur Leukocyte Esterase Urine WBC (Auto) Urine RBC (Auto) Ur Squamous Epith Cells Influenza Typ A,B (EIA) Blood Type Antibody Screen Radiology Impressions: Radiology Impressions Abdomen/Pelvis CT 04/11/18 10:22 IMPRESSION: 8 mm right lower lobe pulmonary nodule. Recommend further evaluation with biopsy, PET- CT, or follow-up CT at 3 months, and 9 months, and 24 months. Right middle lobe consolidation, likely atelectasis, partially imaged. Diffuse colonic wall thickening raises concern for roldan colitis (i.e. Infectious/inflammatory). Large amount of fluid is noted within the rectosigmoid colon; consistent with diarrheal illness. 3 x 2.2 x 7.2 cm low-density within the left psoas. Punctate associated focus of air is noted. Correlate clinically for possibility of abscess. Alternatives including hematoma not excluded. Sclerotic focus within the left sacrum and L3 vertebral body. Lucent foci measuring to 1.3 cm at the left head. Associated regions of sclerosis. Correlate clinically and with bone scan if indicated. Additional findings as above. Discussed without the Gildardo Ratliff on 04/11/18 at 5:03 p.m. Chest X-Ray 04/11/18 10:45 IMPRESSION: Left IJ approach MediPort unchanged in position. Nonspecific right middle lobe haziness. Prominence the mediastinum consistent with tortuous vasculature. Alternatives including adenopathy not excluded. Known metastatic lesions seen to better advantage by CT. EKG/Cardiology Studies: Cardiology / EKG Studies 04/11/18 10:44 EKG [ELECTROCARDIOGRAM] Stat Comment: Mode Of Transportation: Reason For Exam: abdominal pain Critical Care Progress Note - Nutrition Nutrition: Nutrition Category Date Time Status NPO Diet [DIET] Diets 04/11/18 Breakfast Active Assessment/Plan - Assessment and Plan (Free Text) Assessment: 58 y/o female with metastatic breast cancer to the lungs, brain and bones on chemo, asthma, and HTN, presented to the ED 04/11 with abdominal pain x 4 days and GI bleed. Patient also found to have severe leukopenia and thrombocytopenia. Patient currently in the ICU. DNR/DNI with hospice consult. neuro -patient alert and awake -no acute issues CV -patient borderline tachycardia averaging 100 on tele monitor, continue to monitor -no acute issues Pulm -per hx, patient w/ CA mets to the lungs -PMHx asthma, no complaints -patient on RA and denies SOB -monitor, goal SpO2 > 92% GI -CTAP 04/11: thickened rectosigmoid colon consistent with pancolitis -Patient w/ bloody BMs and incontinent of stool in the ED and per patient again after she was transferred up to the ICU -GI Dr. Starr consulted, appreciate recs, though unsure given patient's DNR/DNI and hospice consult status if she would like colonoscopy -currently NPO; will await for further recs Renal -hypokalemia 2.7 and hypomg 1.5 -> repleted this morning 04/12 -CMP qAM and replete as needed -patient currently on LR 100 mg/h ID -patient afebrile, but severe leukopenia WBC 1.2 04/12 -neutropenic precautions -pending stool studies -cefepine 2g q8h started 04/11 -flagyl 500 mg q8h started 04/12 -vanco 1g q12h started 04/12 -Dr. Saez ID on the case. Appreciate recs. Heme-onc -leukopenia 1.2, thrombocytopenia 2.2 -s/p 2U PRBC and 2 FFP overnight 04/11-04/12 -morphine 2 mg q4h PRN -CBC qAM -Dr. Gibson, pt's routine outpatient physician for her chemo, is on the case. Appreciate recs. -Hospice care on board. Appreciate recs. Derm -pt w/ known sacral ulcers, was not examined this morning. RN could let the team know when she is turned over for cleaning. Per patient she gets medihoney at home. Family cleans her. -Wound care consult RN in, appreciate recs MSK -s/p fall around Thanksgiving. Been bedbound ever since. -Left psoas abscess/density on CTAP 04/12. Per surgery, patient not a good surgical candidate due to underlying conditions. -IR Dr. Balbuena on board for possible aspiration of psoas abscess. Appreciate recs. -unable to lift LE against gravity, UE 1/5 strength. -PT/OT DVT ppx: contraindicated due to GI bleed GI ppx: not indicated at this time case discussed with Dr. Eulalio Bran PGY1 <Onesimo Tsai S - Last Filed: 04/12/18 16:37> CCU Objective - Vital Signs / Intake & Output Vital Signs (Last 4 hours): Vital Signs Pulse Resp BP Pulse Ox 04/12/18 13:56 105 H 12 106/78 100 04/12/18 12:56 105 H 19 95/77 L 100 Intake and Output (Last 8hrs): Intake & Output 04/12/18 04/12/18 04/12/18 06:59 14:59 22:59 Intake Total 1800 284 Output Total 600 Balance 1200 284 Weight 216 lb 0.848 oz Intake: Intake, IV Amount 1150 284 Left Antecubital 84 Left Port-A-Cath 1150 200 Blood Product 650 Red Blood Cells Cpd As1 325 Lr Unit [id number] Red Blood Cells Cpd As1 325 Lr Unit [id number] Output: Urine 600 Urine, Voided 600 Other: # Bowel Movements 4 - Medications Active Medications: Active Medications Generic Name Dose Route Start Last Admin Trade Name Freq PRN Reason Stop Dose Admin Vancomycin/Sodium Chloride 1 gm in 200 mls @ 133.333 mls/hr 04/12/18 01:55 04/12/18 16:19 Vancomycin 1 Gm/Ns 200 Ml IVPB 04/17/18 01:56 133.333 mls/hr Q12H SARAH Administration Protocol Cefepime HCl 2 gm in 100 mls @ 100 mls/hr 04/11/18 21:30 04/12/18 14:23 Maxipime Iv 2 Gm Premix IVPB 04/16/18 21:31 100 mls/hr Q8H SARAH Administration Protocol Lactated Ringer's 1,000 mls @ 100 mls/hr 04/11/18 21:00 04/12/18 07:23 Lactated Ringer's IV Not Given .Q10H SARAH Metronidazole 500 mg in 100 mls @ 100 mls/hr 04/12/18 00:00 04/12/18 16:20 Flagyl IVPB 100 mls/hr Q8H SARAH Administration Protocol Fluconazole 100 mg/ 50 mls @ 100 mls/hr 04/12/18 16:00 Miscellaneous IVPB DAILY SARAH Protocol Morphine Sulfate 2 mg 04/11/18 22:22 04/12/18 11:39 Morphine IVP 2 mg Q4 PRN Administration Pain, moderate (4-7) Pantoprazole Sodium 40 mg 04/11/18 20:30 04/12/18 08:49 Protonix Inj IVP 40 mg Q12H SARAH Administration - Patient Studies Lab Studies: Microbiology Studies 04/12/18 08:00 Ova and Parasite Concentrate Exam - Final Stool 04/11/18 20:01 Gram Stain - Final Buttock Wound Culture - Preliminary Staphylococcus Aureus 04/11/18 11:00 Blood Culture - Preliminary Blood NO GROWTH AFTER 24 HOURS 04/11/18 12:32 Blood Culture - Preliminary Blood NO GROWTH AFTER 24 HOURS Lab Studies 04/12/18 04/12/18 04/12/18 Range/Units 11:08 08:08 08:00 WBC (4.8-10.8) K/uL RBC (3.80-5.20) Mil/uL Hgb (11.0-16.0) g/dL Hct (34.0-47.0) % MCV (81.0-99.0) fL MCH (27.0-31.0) pg MCHC (33.0-37.0) g/dL RDW (11.5-14.5) % Plt Count (130-400) K/uL MPV (7.2-11.7) fL Neut % (Auto) (50.0-75.0) % Lymph % (Auto) (20.0-40.0) % Quay % (Auto) (0.0-10.0) % Eos % (Auto) (0.0-4.0) % Baso % (Auto) (0.0-2.0) % Neut # (Auto) (1.8-7.0) K/uL Lymph # (Auto) (1.0-4.3) K/uL Quay # (Auto) (0.0-0.8) K/uL Eos # (Auto) (0.0-0.7) K/uL Baso # (Auto) (0.0-0.2) K/uL Differential Comment PT (9.7-12.2) SECONDS INR APTT (21-34) SECONDS Fibrinogen (200-400) mg/dL Sodium (132-148) mmol/L Potassium (3.6-5.2) mmol/L Chloride (98-107) mmol/L Carbon Dioxide (22-30) mmol/L Anion Gap (10-20) BUN (7-17) mg/dL Creatinine (0.7-1.2) mg/dL Est GFR ( Amer) Est GFR (Non-Af Amer) POC Glucose (mg/dL) 105 (65-110) mg/dL Random Glucose (65-105) mg/dL Lactic Acid (0.7-2.1) mmol/L Calcium (8.6-10.4) mg/dl Phosphorus (2.5-4.5) mg/dL Magnesium (1.6-2.3) mg/dL Total Bilirubin (0.2-1.3) mg/dL AST (14-36) U/L ALT (9-52) U/L Alkaline Phosphatase (38-126) U/L Total Protein (6.3-8.3) g/dL Albumin (3.5-5.0) g/dL Globulin (2.2-3.9) gm/dL Albumin/Globulin Ratio (1.0-2.1) Stool Occult Blood Positive H (NEGATIVE) Stool Leukocytes, Qual Negative (NEGATIVE) C. difficile Ag & Toxin Negative (NEGATIVE) Influenza Typ A,B (EIA) (NEGATIVE) Blood Type Antibody Screen 04/12/18 04/12/18 04/12/18 Range/Units 06:10 06:10 06:10 WBC (4.8-10.8) K/uL RBC (3.80-5.20) Mil/uL Hgb (11.0-16.0) g/dL Hct (34.0-47.0) % MCV (81.0-99.0) fL MCH (27.0-31.0) pg MCHC (33.0-37.0) g/dL RDW (11.5-14.5) % Plt Count (130-400) K/uL MPV (7.2-11.7) fL Neut % (Auto) (50.0-75.0) % Lymph % (Auto) (20.0-40.0) % Quay % (Auto) (0.0-10.0) % Eos % (Auto) (0.0-4.0) % Baso % (Auto) (0.0-2.0) % Neut # (Auto) (1.8-7.0) K/uL Lymph # (Auto) (1.0-4.3) K/uL Quay # (Auto) (0.0-0.8) K/uL Eos # (Auto) (0.0-0.7) K/uL Baso # (Auto) (0.0-0.2) K/uL Differential Comment PT 16.8 H (9.7-12.2) SECONDS INR 1.5 APTT 28 (21-34) SECONDS Fibrinogen 240 (200-400) mg/dL Sodium (132-148) mmol/L Potassium (3.6-5.2) mmol/L Chloride (98-107) mmol/L Carbon Dioxide (22-30) mmol/L Anion Gap (10-20) BUN (7-17) mg/dL Creatinine (0.7-1.2) mg/dL Est GFR ( Amer) Est GFR (Non-Af Amer) POC Glucose (mg/dL) 105 (65-110) mg/dL Random Glucose (65-105) mg/dL Lactic Acid 1.2 (0.7-2.1) mmol/L Calcium (8.6-10.4) mg/dl Phosphorus (2.5-4.5) mg/dL Magnesium (1.6-2.3) mg/dL Total Bilirubin (0.2-1.3) mg/dL AST (14-36) U/L ALT (9-52) U/L Alkaline Phosphatase (38-126) U/L Total Protein (6.3-8.3) g/dL Albumin (3.5-5.0) g/dL Globulin (2.2-3.9) gm/dL Albumin/Globulin Ratio (1.0-2.1) Stool Occult Blood (NEGATIVE) Stool Leukocytes, Qual (NEGATIVE) C. difficile Ag & Toxin (NEGATIVE) Influenza Typ A,B (EIA) (NEGATIVE) Blood Type Antibody Screen 04/12/18 04/12/18 04/11/18 Range/Units 06:10 06:10 23:11 WBC 1.2 L* D (4.8-10.8) K/uL RBC 3.06 L (3.80-5.20) Mil/uL Hgb 8.4 L (11.0-16.0) g/dL Hct 25.3 L (34.0-47.0) % MCV 82.6 (81.0-99.0) fL MCH 27.4 (27.0-31.0) pg MCHC 33.2 (33.0-37.0) g/dL RDW 17.9 H (11.5-14.5) % Plt Count 22 L* D (130-400) K/uL MPV 7.4 (7.2-11.7) fL Neut % (Auto) 84.3 H (50.0-75.0) % Lymph % (Auto) 13.1 L (20.0-40.0) % Quay % (Auto) 2.3 (0.0-10.0) % Eos % (Auto) 0.2 (0.0-4.0) % Baso % (Auto) 0.1 (0.0-2.0) % Neut # (Auto) 1.0 L (1.8-7.0) K/uL Lymph # (Auto) 0.2 L (1.0-4.3) K/uL Quay # (Auto) 0.0 (0.0-0.8) K/uL Eos # (Auto) 0.0 (0.0-0.7) K/uL Baso # (Auto) 0.0 (0.0-0.2) K/uL Differential Comment PT (9.7-12.2) SECONDS INR APTT (21-34) SECONDS Fibrinogen (200-400) mg/dL Sodium 136 (132-148) mmol/L Potassium 2.7 L (3.6-5.2) mmol/L Chloride 101 (98-107) mmol/L Carbon Dioxide 28 (22-30) mmol/L Anion Gap 11 (10-20) BUN 10 (7-17) mg/dL Creatinine 0.3 L (0.7-1.2) mg/dL Est GFR ( Amer) > 60 Est GFR (Non-Af Amer) > 60 POC Glucose (mg/dL) (65-110) mg/dL Random Glucose 121 H (65-105) mg/dL Lactic Acid 1.4 (0.7-2.1) mmol/L Calcium 7.3 L (8.6-10.4) mg/dl Phosphorus 2.0 L (2.5-4.5) mg/dL Magnesium 1.5 L (1.6-2.3) mg/dL Total Bilirubin 1.8 H (0.2-1.3) mg/dL AST 22 (14-36) U/L ALT 23 (9-52) U/L Alkaline Phosphatase 73 (38-126) U/L Total Protein 5.9 L (6.3-8.3) g/dL Albumin 2.9 L (3.5-5.0) g/dL Globulin 3.0 (2.2-3.9) gm/dL Albumin/Globulin Ratio 1.0 (1.0-2.1) Stool Occult Blood (NEGATIVE) Stool Leukocytes, Qual (NEGATIVE) C. difficile Ag & Toxin (NEGATIVE) Influenza Typ A,B (EIA) (NEGATIVE) Blood Type Antibody Screen 04/11/18 04/11/18 04/11/18 Range/Units 23:08 18:35 17:57 WBC (4.8-10.8) K/uL RBC (3.80-5.20) Mil/uL Hgb (11.0-16.0) g/dL Hct (34.0-47.0) % MCV (81.0-99.0) fL MCH (27.0-31.0) pg MCHC (33.0-37.0) g/dL RDW (11.5-14.5) % Plt Count (130-400) K/uL MPV (7.2-11.7) fL Neut % (Auto) (50.0-75.0) % Lymph % (Auto) (20.0-40.0) % [place] % (Auto) (0.0-10.0) % Eos % (Auto) (0.0-4.0) % Baso % (Auto) (0.0-2.0) % Neut # (Auto) (1.8-7.0) K/uL Lymph # (Auto) (1.0-4.3) K/uL [place] # (Auto) (0.0-0.8) K/uL Eos # (Auto) (0.0-0.7) K/uL Baso # (Auto) (0.0-0.2) K/uL Differential Comment PT (9.7-12.2) SECONDS INR APTT (21-34) SECONDS Fibrinogen (200-400) mg/dL Sodium (132-148) mmol/L Potassium (3.6-5.2) mmol/L Chloride (98-107) mmol/L Carbon Dioxide (22-30) mmol/L Anion Gap (10-20) BUN (7-17) mg/dL Creatinine (0.7-1.2) mg/dL Est GFR ( Amer) Est GFR (Non-Af Amer) POC Glucose (mg/dL) 157 H (65-110) mg/dL Random Glucose (65-105) mg/dL Lactic Acid (0.7-2.1) mmol/L Calcium (8.6-10.4) mg/dl Phosphorus 1.9 L (2.5-4.5) mg/dL Magnesium 1.2 L (1.6-2.3) mg/dL Total Bilirubin (0.2-1.3) mg/dL AST (14-36) U/L ALT (9-52) U/L Alkaline Phosphatase (38-126) U/L Total Protein (6.3-8.3) g/dL Albumin (3.5-5.0) g/dL Globulin (2.2-3.9) gm/dL Albumin/Globulin Ratio (1.0-2.1) Stool Occult Blood (NEGATIVE) Stool Leukocytes, Qual (NEGATIVE) C. difficile Ag & Toxin (NEGATIVE) Influenza Typ A,B (EIA) Negative for flu a/b (NEGATIVE) Blood Type Antibody Screen 04/11/18 04/11/18 04/11/18 Range/Units 17:57 17:57 17:57 WBC 0.7 L* D (4.8-10.8) K/uL RBC 3.13 L (3.80-5.20) Mil/uL Hgb 8.0 L (11.0-16.0) g/dL Hct 25.6 L (34.0-47.0) % MCV 82.0 (81.0-99.0) fL MCH 25.5 L (27.0-31.0) pg MCHC 31.1 L (33.0-37.0) g/dL RDW 20.6 H (11.5-14.5) % Plt Count 33 L D (130-400) K/uL MPV 8.3 (7.2-11.7) fL Neut % (Auto) 80.6 H (50.0-75.0) % Lymph % (Auto) 16.6 L (20.0-40.0) % [place]ay % (Auto) 2.1 (0.0-10.0) % Eos % (Auto) 0.2 (0.0-4.0) % Baso % (Auto) 0.5 (0.0-2.0) % Neut # (Auto) 0.5 L (1.8-7.0) K/uL Lymph # (Auto) 0.1 L (1.0-4.3) K/uL Quay # (Auto) 0.0 (0.0-0.8) K/uL Eos # (Auto) 0.0 (0.0-0.7) K/uL Baso # (Auto) 0.0 (0.0-0.2) K/uL Differential Comment PT (9.7-12.2) SECONDS INR APTT (21-34) SECONDS Fibrinogen (200-400) mg/dL Sodium 137 (132-148) mmol/L Potassium 3.0 L (3.6-5.2) mmol/L Chloride 100 (98-107) mmol/L Carbon Dioxide 29 (22-30) mmol/L Anion Gap 11 (10-20) BUN 12 (7-17) mg/dL Creatinine 0.4 L (0.7-1.2) mg/dL Est GFR ( Amer) > 60 Est GFR (Non-Af Amer) > 60 POC Glucose (mg/dL) (65-110) mg/dL Random Glucose 135 H (65-105) mg/dL Lactic Acid (0.7-2.1) mmol/L Calcium 7.4 L (8.6-10.4) mg/dl Phosphorus (2.5-4.5) mg/dL Magnesium (1.6-2.3) mg/dL Total Bilirubin 1.1 (0.2-1.3) mg/dL AST 20 (14-36) U/L ALT 24 (9-52) U/L Alkaline Phosphatase 73 (38-126) U/L Total Protein 5.9 L (6.3-8.3) g/dL Albumin 2.9 L D (3.5-5.0) g/dL Globulin 3.1 (2.2-3.9) gm/dL Albumin/Globulin Ratio 0.9 L (1.0-2.1) Stool Occult Blood (NEGATIVE) Stool Leukocytes, Qual (NEGATIVE) C. difficile Ag & Toxin (NEGATIVE) Influenza Typ A,B (EIA) (NEGATIVE) Blood Type O POSITIVE Antibody Screen Negative Laboratory Results - last 24 hr 04/11/18 04/11/18 04/11/18 17:57 17:57 17:57 WBC 0.7 L* D RBC 3.13 L Hgb 8.0 L Hct 25.6 L MCV 82.0 MCH 25.5 L MCHC 31.1 L RDW 20.6 H Plt Count 33 L D MPV 8.3 Neut % (Auto) 80.6 H Lymph % (Auto) 16.6 L Quay % (Auto) 2.1 Eos % (Auto) 0.2 Baso % (Auto) 0.5 Neut # (Auto) 0.5 L Lymph # (Auto) 0.1 L Quay # (Auto) 0.0 Eos # (Auto) 0.0 Baso # (Auto) 0.0 Differential Comment PT INR APTT Fibrinogen Sodium 137 Potassium 3.0 L Chloride 100 Carbon Dioxide 29 Anion Gap 11 BUN 12 Creatinine 0.4 L Est GFR ( Amer) > 60 Est GFR (Non-Af Amer) > 60 POC Glucose (mg/dL) Random Glucose 135 H Lactic Acid Calcium 7.4 L Phosphorus Magnesium Total Bilirubin 1.1 AST 20 ALT 24 Alkaline Phosphatase 73 Total Protein 5.9 L Albumin 2.9 L D Globulin 3.1 Albumin/Globulin Ratio 0.9 L Stool Occult Blood Stool Leukocytes, Qual C. difficile Ag & Toxin Influenza Typ A,B (EIA) Blood Type O POSITIVE Antibody Screen Negative 04/11/18 04/11/18 04/11/18 17:57 18:35 23:08 WBC RBC Hgb Hct MCV MCH MCHC RDW Plt Count MPV Neut % (Auto) Lymph % (Auto) Quay % (Auto) Eos % (Auto) Baso % (Auto) Neut # (Auto) Lymph # (Auto) Quay # (Auto) Eos # (Auto) Baso # (Auto) Differential Comment PT INR APTT Fibrinogen Sodium Potassium Chloride Carbon Dioxide Anion Gap BUN Creatinine Est GFR ( Amer) Est GFR (Non-Af Amer) POC Glucose (mg/dL) 157 H Random Glucose Lactic Acid Calcium Phosphorus 1.9 L Magnesium 1.2 L Total Bilirubin AST ALT Alkaline Phosphatase Total Protein Albumin Globulin Albumin/Globulin Ratio Stool Occult Blood Stool Leukocytes, Qual C. difficile Ag & Toxin Influenza Typ A,B (EIA) Negative for flu a/b Blood Type Antibody Screen 04/11/18 04/12/18 04/12/18 23:11 06:10 06:10 WBC 1.2 L* D RBC 3.06 L Hgb 8.4 L Hct 25.3 L MCV 82.6 MCH 27.4 MCHC 33.2 RDW 17.9 H Plt Count 22 L* D MPV 7.4 Neut % (Auto) 84.3 H Lymph % (Auto) 13.1 L Quay % (Auto) 2.3 Eos % (Auto) 0.2 Baso % (Auto) 0.1 Neut # (Auto) 1.0 L Lymph # (Auto) 0.2 L Quay # (Auto) 0.0 Eos # (Auto) 0.0 Baso # (Auto) 0.0 Differential Comment PT INR APTT Fibrinogen Sodium 136 Potassium 2.7 L Chloride 101 Carbon Dioxide 28 Anion Gap 11 BUN 10 Creatinine 0.3 L Est GFR ( Amer) > 60 Est GFR (Non-Af Amer) > 60 POC Glucose (mg/dL) Random Glucose 121 H Lactic Acid 1.4 Calcium 7.3 L Phosphorus 2.0 L Magnesium 1.5 L Total Bilirubin 1.8 H AST 22 ALT 23 Alkaline Phosphatase 73 Total Protein 5.9 L Albumin 2.9 L Globulin 3.0 Albumin/Globulin Ratio 1.0 Stool Occult Blood Stool Leukocytes, Qual C. difficile Ag & Toxin Influenza Typ A,B (EIA) Blood Type Antibody Screen 04/12/18 04/12/18 04/12/18 06:10 06:10 06:10 WBC RBC Hgb Hct MCV MCH MCHC RDW Plt Count MPV Neut % (Auto) Lymph % (Auto) Quay % (Auto) Eos % (Auto) Baso % (Auto) Neut # (Auto) Lymph # (Auto) Quay # (Auto) Eos # (Auto) Baso # (Auto) Differential Comment PT 16.8 H INR 1.5 APTT 28 Fibrinogen 240 Sodium Potassium Chloride Carbon Dioxide Anion Gap BUN Creatinine Est GFR ( Amer) Est GFR (Non-Af Amer) POC Glucose (mg/dL) 105 Random Glucose Lactic Acid 1.2 Calcium Phosphorus Magnesium Total Bilirubin AST ALT Alkaline Phosphatase Total Protein Albumin Globulin Albumin/Globulin Ratio Stool Occult Blood Stool Leukocytes, Qual C. difficile Ag & Toxin Influenza Typ A,B (EIA) Blood Type Antibody Screen 04/12/18 04/12/18 04/12/18 08:00 08:08 11:08 WBC RBC Hgb Hct MCV MCH MCHC RDW Plt Count MPV Neut % (Auto) Lymph % (Auto) Quay % (Auto) Eos % (Auto) Baso % (Auto) Neut # (Auto) Lymph # (Auto) Quay # (Auto) Eos # (Auto) Baso # (Auto) Differential Comment PT INR APTT Fibrinogen Sodium Potassium Chloride Carbon Dioxide Anion Gap BUN Creatinine Est GFR ( Amer) Est GFR (Non-Af Amer) POC Glucose (mg/dL) 105 Random Glucose Lactic Acid Calcium Phosphorus Magnesium Total Bilirubin AST ALT Alkaline Phosphatase Total Protein Albumin Globulin Albumin/Globulin Ratio Stool Occult Blood Positive H Stool Leukocytes, Qual Negative C. difficile Ag & Toxin Negative Influenza Typ A,B (EIA) Blood Type Antibody Screen Radiology Impressions: Radiology Impressions Abdomen/Pelvis CT 04/11/18 10:22 IMPRESSION: 8 mm right lower lobe pulmonary nodule. Recommend further evaluation with biopsy, PET- CT, or follow-up CT at 3 months, and 9 months, and 24 months. Right middle lobe consolidation, likely atelectasis, partially imaged. Diffuse colonic wall thickening raises concern for roldan colitis (i.e. Infectious/inflammatory). Large amount of fluid is noted within the rectosigmoid colon; consistent with diarrheal illness. 3 x 2.2 x 7.2 cm low-density within the left psoas. Punctate associated focus of air is noted. Correlate clinically for possibility of abscess. Alternatives including hematoma not excluded. Sclerotic focus within the left sacrum and L3 vertebral body. Lucent foci measuring to 1.3 cm at the left head. Associated regions of sclerosis. Correlate clinically and with bone scan if indicated. Additional findings as above. Discussed without the Gildardo Ratliff on 04/11/18 at 5:03 p.m. Critical Care Progress Note - Nutrition Nutrition: Nutrition Category Date Time Status Liquid Diet [DIET] Diets 04/12/18 Dinner Active NPO Diet [DIET] Diets 04/13/18 Breakfast Active Attending/Attestation - Attestation I have personally seen and examined this patient.: Yes I have fully participated in the care of the patient.: Yes I have reviewed all pertinent clinical information: Yes Notes (Text): 04/12/18 16:37 Patient seen and examined in the intensive care unit. Transfered to ICU for GI bleeding Status post transfusion of 2 units packed RBCs and FFP Seen by gastroenterology Continue Protonix Pancytopenia secondary to chemotherapy Transfuse platelets Monitor H&H
[2018-04-12] MEDS: metroNIDAZOLE IV 500 mg/100 ml 500 MG/100 ML BAG IVPB SCH ×3 (08:17→23:28)
[2018-04-12] MEDS ORDERED: Potassium Phosphate 30 MMOLE in Sodium Chloride 0.9% 250 ML IVPB ONE (08:30)
--- NOTE | 2018-04-12 09:46 | PCM.IRP ---
History of Present Illness - History of Present Illness History of Present Illness: IR requested to evaluate for drainage of psoas collection. CT reviewed. Left psoas collection can not be aspirated/drained from a percutaneous approach. Objective - Vital Signs/Intake and Output Vital Signs (last 24 hours): Vital Signs - 24 hr 04/11/18 04/11/18 04/11/18 10:12 12:00 12:15 Temperature 98.1 F 101.5 F H Pulse Rate 127 H 128 H 126 H Respiratory 32 H 24 26 H Rate Blood Pressure 108/75 137/96 H 133/76 O2 Sat by Pulse 98 96 96 Oximetry 04/11/18 04/11/18 04/11/18 12:30 13:55 14:45 Temperature Pulse Rate 122 H 121 H 121 H Respiratory 18 26 H 20 Rate Blood Pressure 124/93 H 137/83 131/87 O2 Sat by Pulse 98 97 100 Oximetry 04/11/18 04/11/18 04/11/18 15:55 16:00 16:30 Temperature 101.6 F H 101.6 F H Pulse Rate 122 H 126 H Respiratory 24 22 Rate Blood Pressure 144/84 135/84 O2 Sat by Pulse 98 100 Oximetry 04/11/18 04/11/18 04/11/18 17:13 17:30 18:00 Temperature Pulse Rate 126 H 125 H 130 H Respiratory 18 24 24 Rate Blood Pressure 116/84 133/82 127/96 H O2 Sat by Pulse 100 100 100 Oximetry 04/11/18 04/11/18 04/11/18 18:15 18:30 18:45 Temperature Pulse Rate 126 H 126 H 127 H Respiratory 24 24 24 Rate Blood Pressure 130/79 143/119 H 145/98 H O2 Sat by Pulse 100 100 100 Oximetry 04/11/18 04/11/18 04/11/18 18:55 19:00 19:20 Temperature 101.2 F H Pulse Rate 127 H 127 H Respiratory 24 24 Rate Blood Pressure 116/80 128/84 O2 Sat by Pulse 100 100 Oximetry 04/11/18 04/11/18 04/11/18 19:34 20:00 20:03 Temperature 99.1 F 98.6 F Pulse Rate 130 H 126 H Respiratory 28 H Rate Blood Pressure 148/75 O2 Sat by Pulse 100 100 Oximetry 04/11/18 04/11/18 04/11/18 20:06 20:10 20:20 Temperature Pulse Rate 125 H 124 H 120 H Respiratory 27 H 26 H 24 Rate Blood Pressure 116/67 O2 Sat by Pulse 100 100 98 Oximetry 04/11/18 04/11/18 04/11/18 20:26 20:30 20:40 Temperature Pulse Rate 120 H 119 H 118 H Respiratory 25 H 23 26 H Rate Blood Pressure 125/71 O2 Sat by Pulse 94 L 99 98 Oximetry 04/11/18 04/11/18 04/11/18 20:41 20:50 20:56 Temperature Pulse Rate 116 H 116 H 117 H Respiratory 24 23 22 Rate Blood Pressure 117/72 135/82 O2 Sat by Pulse 100 100 100 Oximetry 04/11/18 04/11/18 04/11/18 20:57 21:00 21:01 Temperature 98.6 F Pulse Rate 117 H 116 H Respiratory 23 24 Rate Blood Pressure O2 Sat by Pulse 94 L 99 Oximetry 04/11/18 04/11/18 04/11/18 21:10 21:11 21:20 Temperature Pulse Rate 118 H 116 H 117 H Respiratory 28 H 24 25 H Rate Blood Pressure 118/82 O2 Sat by Pulse 96 99 92 L Oximetry 04/11/18 04/11/18 04/11/18 21:27 21:30 22:03 Temperature Pulse Rate 117 H 114 H 125 H Respiratory 26 H 27 H 23 Rate Blood Pressure 121/82 O2 Sat by Pulse 99 96 Oximetry 04/11/18 04/11/18 04/11/18 22:04 22:10 22:11 Temperature Pulse Rate 115 H 115 H 115 H Respiratory 26 H 21 19 Rate Blood Pressure 103/68 86/65 L O2 Sat by Pulse 93 L 92 L Oximetry 04/11/18 04/11/18 04/11/18 22:20 22:27 22:30 Temperature Pulse Rate 113 H 118 H 116 H Respiratory 26 H 24 22 Rate Blood Pressure 93/69 L 97/70 L O2 Sat by Pulse 97 100 99 Oximetry 04/11/18 04/11/18 04/11/18 22:40 22:41 22:50 Temperature Pulse Rate 113 H 112 H 110 H Respiratory 22 22 20 Rate Blood Pressure 112/70 O2 Sat by Pulse 99 98 98 Oximetry 04/11/18 04/11/18 04/11/18 22:56 23:00 23:10 Temperature Pulse Rate 109 H 109 H 109 H Respiratory 20 19 21 Rate Blood Pressure 118/68 O2 Sat by Pulse 99 98 100 Oximetry 04/11/18 04/11/18 04/11/18 23:11 23:20 23:28 Temperature Pulse Rate 110 H 109 H 115 H Respiratory 21 19 23 Rate Blood Pressure 115/66 113/70 O2 Sat by Pulse 100 99 100 Oximetry 04/11/18 04/11/18 04/11/18 23:30 23:40 23:41 Temperature Pulse Rate 115 H 117 H 117 H Respiratory 28 H 22 23 Rate Blood Pressure 109/49 L O2 Sat by Pulse 100 97 100 Oximetry 04/11/18 04/11/18 04/12/18 23:50 23:56 00:00 Temperature 98.1 F Pulse Rate 109 H 105 H 103 H Respiratory 25 H 25 H 25 H Rate Blood Pressure 111/57 L O2 Sat by Pulse 100 100 96 Oximetry 04/12/18 04/12/18 04/12/18 00:10 00:11 00:20 Temperature Pulse Rate 103 H 103 H 103 H Respiratory 22 22 21 Rate Blood Pressure 108/61 O2 Sat by Pulse Oximetry 04/12/18 04/12/18 04/12/18 00:23 00:26 00:30 Temperature 98.2 F Pulse Rate 104 H 104 H 104 H Respiratory 18 21 21 Rate Blood Pressure 99/57 L 99/57 L O2 Sat by Pulse 99 Oximetry 04/12/18 04/12/18 04/12/18 00:38 00:40 00:50 Temperature 98.2 F Pulse Rate 107 H 104 H 104 H Respiratory 18 19 20 Rate Blood Pressure 88/48 L O2 Sat by Pulse 100 100 Oximetry 04/12/18 04/12/18 04/12/18 00:53 00:56 01:00 Temperature 98.3 F Pulse Rate 105 H 103 H 104 H Respiratory 20 20 19 Rate Blood Pressure 104/61 88/48 L O2 Sat by Pulse 100 Oximetry 04/12/18 04/12/18 04/12/18 01:09 01:10 01:11 Temperature Pulse Rate 124 H 108 H 105 H Respiratory 32 H 22 21 Rate Blood Pressure 104/61 111/61 O2 Sat by Pulse 100 100 100 Oximetry 04/12/18 04/12/18 04/12/18 01:20 01:23 01:27 Temperature 98.1 F Pulse Rate 105 H 100 H 108 H Respiratory 19 20 23 Rate Blood Pressure 114/72 100/53 L O2 Sat by Pulse 100 100 Oximetry 04/12/18 04/12/18 04/12/18 01:30 01:40 01:42 Temperature Pulse Rate 110 H 107 H 109 H Respiratory 25 H 24 25 H Rate Blood Pressure 126/60 O2 Sat by Pulse 100 100 99 Oximetry 04/12/18 04/12/18 04/12/18 01:50 01:57 02:00 Temperature Pulse Rate 108 H 108 H 112 H Respiratory 25 H 24 28 H Rate Blood Pressure 105/41 L O2 Sat by Pulse 100 100 100 Oximetry 04/12/18 04/12/18 04/12/18 02:10 02:11 02:20 Temperature Pulse Rate 106 H 108 H 108 H Respiratory 22 21 23 Rate Blood Pressure 118/70 O2 Sat by Pulse 100 100 100 Oximetry 04/12/18 04/12/18 04/12/18 02:25 02:27 02:30 Temperature 98.3 F 98.3 F Pulse Rate 107 H 108 H 106 H Respiratory 14 20 20 Rate Blood Pressure 107/64 107/64 107/55 L O2 Sat by Pulse 100 100 Oximetry 04/12/18 04/12/18 04/12/18 02:40 02:41 02:45 Temperature Pulse Rate 105 H 106 H 101 H Respiratory 20 19 14 Rate Blood Pressure 107/55 L 107/55 L O2 Sat by Pulse 100 100 Oximetry 04/12/18 04/12/18 04/12/18 02:50 02:56 03:00 Temperature Pulse Rate 103 H 102 H 102 H Respiratory 17 16 19 Rate Blood Pressure 107/55 L 112/54 L O2 Sat by Pulse 100 100 100 Oximetry 04/12/18 04/12/18 04/12/18 03:10 03:11 03:20 Temperature Pulse Rate 101 H 102 H 100 H Respiratory 17 19 18 Rate Blood Pressure 112/54 L O2 Sat by Pulse 100 100 100 Oximetry 04/12/18 04/12/18 04/12/18 03:26 03:30 03:40 Temperature Pulse Rate 102 H 100 H 104 H Respiratory 19 16 22 Rate Blood Pressure 106/61 114/62 O2 Sat by Pulse 100 100 99 Oximetry 04/12/18 04/12/18 04/12/18 03:50 03:56 04:00 Temperature Pulse Rate 104 H 104 H 113 H Respiratory 21 23 33 H Rate Blood Pressure 118/78 O2 Sat by Pulse 94 L Oximetry 04/12/18 04/12/18 04/12/18 04:10 04:12 04:20 Temperature Pulse Rate 109 H 111 H 105 H Respiratory 34 H 27 H 22 Rate Blood Pressure 104/54 L O2 Sat by Pulse 96 Oximetry 04/12/18 04/12/18 04/12/18 04:28 04:30 04:40 Temperature Pulse Rate 107 H 107 H 104 H Respiratory 23 21 24 Rate Blood Pressure 107/68 O2 Sat by Pulse 100 99 100 Oximetry 04/12/18 04/12/18 04/12/18 04:41 07:11 07:56 Temperature Pulse Rate 103 H 97 H 100 H Respiratory 25 H 17 21 Rate Blood Pressure 114/62 124/77 111/70 O2 Sat by Pulse 100 100 Oximetry Intake and Output (last 12 hours): Intake & Output 04/11/18 04/12/18 04/12/18 18:59 06:59 18:59 Intake Total 3000 Output Total 600 Balance 2400 Weight 260 lb 216 lb 0.848 oz Intake: Intake, IV Amount 1750 Left Port-A-Cath 1750 Blood Product 1250 Red Blood Cells Cpd As1 325 Lr Unit [id number] Red Blood Cells Cpd As1 325 Lr Unit [id number] Output: Urine 600 Urine, Voided 600 Other: # Bowel Movements 4 - Medications Medications: Current Medications Vancomycin/Sodium Chloride (Vancomycin 1 Gm/Ns 200 Ml) 1 gm in 200 mls @ 133.333 mls/hr IVPB Q12H [facility]; Protocol Stop: 04/17/18 01:56 Last Admin: 04/12/18 01:30 Dose: 133.333 mls/hr Cefepime HCl (Maxipime Iv 2 Gm Premix) 2 gm in 100 mls @ 100 mls/hr IVPB Q8H [facility]; Protocol Stop: 04/16/18 21:31 Last Admin: 04/12/18 05:11 Dose: 100 mls/hr Lactated Ringer's (Lactated Ringer's) 1,000 mls @ 100 mls/hr IV .Q10H [facility] Last Admin: 04/12/18 07:23 Dose: Not Given Metronidazole (Flagyl) 500 mg in 100 mls @ 100 mls/hr IVPB Q8H [facility]; Protocol Last Admin: 04/12/18 08:17 Dose: 100 mls/hr Potassium Phosphate 30 mmole/ (Sodium Chloride) 260 mls @ 42.5 mls/hr IVPB ONCE ONE Stop: 04/12/18 14:37 Last Admin: 04/12/18 08:17 Dose: 42.5 mls/hr Magnesium Sulfate/Dextrose (Magnesium Sulfate 1 Gm/100 Ml D5w) 1 gm in 100 mls @ 200 mls/hr IVPB ONCE ONE Stop: 04/12/18 10:29 Morphine Sulfate (Morphine) 2 mg IVP Q4 PRN PRN Reason: Pain, moderate (4-7) Last Admin: 04/12/18 03:12 Dose: 2 mg Pantoprazole Sodium (Protonix Inj) [address] [facility] Last Admin: 04/12/18 08:49 Dose: 40 mg - Labs Labs (last 24 hours): Laboratory Results - last 24 hr 04/11/18 04/11/18 04/11/18 11:31 11:31 11:35 WBC 8.7 D RBC 3.58 L Hgb 9.4 L D Hct 29.2 L MCV 81.6 MCH 26.3 L MCHC 32.3 L RDW 19.7 H Plt Count 75 L D MPV 8.0 Neut % (Auto) 77.0 H Lymph % (Auto) 21.0 Dickens % (Auto) 2.0 Eos % (Auto) 0.0 Baso % (Auto) 0.0 Neut # (Auto) 6.7 Lymph # (Auto) 1.8 Dickens # (Auto) 0.2 Eos # (Auto) 0.0 Baso # (Auto) 0.0 Neutrophils % (Manual) 68 Band Neutrophils % 8 H Lymphocytes % (Manual) 21 Monocytes % (Manual) 2 Metamyelocytes % 1 H Differential Comment Platelet Estimate Decreased L Hypochromasia (manual) Slight Poikilocytosis (manual Slight Anisocytosis (manual) Slight Microcytosis (manual) Slight Macrocytosis (manual) Slight Target Cells Slight Tear Drop Cells Slight Ovalocytes Slight PT INR APTT Fibrinogen pO2 14 L VBG pH 7.42 VBG pCO2 50 VBG HCO3 27.9 VBG Total CO2 33.9 H VBG O2 Sat (Calc) 20.3 L VBG Base Excess 6.6 H VBG Potassium 3.0 L Glucose 127 H Lactate 2.8 H Sodium 136 139.0 Potassium 3.1 L Chloride 97 L 103.0 Carbon Dioxide 30 Anion Gap 13 BUN 14 Creatinine 0.4 L Est GFR ( Amer) > 60 Est GFR (Non-Af Amer) > 60 POC Glucose (mg/dL) Random Glucose 130 H D Lactic Acid Calcium 8.2 L Phosphorus Magnesium Total Bilirubin 1.4 H AST 31 ALT 21 Alkaline Phosphatase 82 Troponin I < 0.0120 Total Protein 7.3 Albumin 3.7 Globulin 3.6 Albumin/Globulin Ratio 1.0 Lipase < 10 L Venous Blood Potassium 3.0 L Urine Color Urine Clarity Urine pH Ur Specific [place] Urine Protein Urine Glucose (UA) Urine Ketones Urine Blood Urine Nitrate Urine Bilirubin Urine Urobilinogen Ur Leukocyte Esterase Urine WBC (Auto) Urine RBC (Auto) Ur Squamous Epith Cells Stool Occult Blood Influenza Typ A,B (EIA) Blood Type Antibody Screen 04/11/18 04/11/18 04/11/18 14:00 15:32 15:54 WBC RBC Hgb Hct MCV MCH MCHC RDW Plt Count MPV Neut % (Auto) Lymph % (Auto) Dickens % (Auto) Eos % (Auto) Baso % (Auto) Neut # (Auto) Lymph # (Auto) Dick[place] # (Auto) Eos # (Auto) Baso # (Auto) Neutrophils % (Manual) Band Neutrophils % Lymphocytes % (Manual) Monocytes % (Manual) Metamyelocytes % Differential Comment Platelet Estimate Hypochromasia (manual) Poikilocytosis (manual Anisocytosis (manual) Microcytosis (manual) Macrocytosis (manual) Target Cells Tear Drop Cells Ovalocytes PT 18.4 H INR 1.7 APTT 30 Fibrinogen pO2 18 L VBG pH 7.45 H VBG pCO2 45 VBG HCO3 28.1 VBG Total CO2 32.7 H VBG O2 Sat (Calc) 35.4 L VBG Base Excess 6.4 H VBG Potassium 2.7 L Glucose 120 H Lactate 2.5 H Sodium 143.0 Potassium Chloride 105.0 Carbon Dioxide Anion Gap BUN Creatinine Est GFR ( Amer) Est GFR (Non-Af Amer) POC Glucose (mg/dL) Random Glucose Lactic Acid Calcium Phosphorus Magnesium Total Bilirubin AST ALT Alkaline Phosphatase Troponin I Total Protein Albumin Globulin Albumin/Globulin Ratio Lipase Venous Blood Potassium 2.7 L Urine Color Yellow Urine Clarity Hazy Urine pH 6.0 Ur Specific [place] 1.028 Urine Protein 2+ H Urine Glucose (UA) Normal Urine Ketones Trace Urine Blood 2+ H Urine Nitrate Negative Urine Bilirubin Negative Urine Urobilinogen Normal Ur Leukocyte Esterase Neg Urine WBC (Auto) 15 H Urine RBC (Auto) 13 H Ur Squamous Epith Cells 1 Stool Occult Blood Influenza Typ A,B (EIA) Blood Type Antibody Screen 04/11/18 04/11/18 04/11/18 17:57 17:57 17:57 WBC 0.7 L* D RBC 3.13 L Hgb 8.0 L Hct 25.6 L MCV 82.0 MCH 25.5 L MCHC 31.1 L RDW 20.6 H Plt Count 33 L D MPV 8.3 Neut % (Auto) 80.6 H Lymph % (Auto) 16.6 L Dickens % (Auto) 2.1 Eos % (Auto) 0.2 Baso % (Auto) 0.5 Neut # (Auto) 0.5 L Lymph # (Auto) 0.1 L Dick[place] # (Auto) 0.0 Eos # (Auto) 0.0 Baso # (Auto) 0.0 Neutrophils % (Manual) Band Neutrophils % Lymphocytes % (Manual) Monocytes % (Manual) Metamyelocytes % Differential Comment Platelet Estimate Hypochromasia (manual) Poikilocytosis (manual Anisocytosis (manual) Microcytosis (manual) Macrocytosis (manual) Target Cells Tear Drop Cells Ovalocytes PT INR APTT Fibrinogen pO2 VBG pH VBG pCO2 VBG HCO3 VBG Total CO2 VBG O2 Sat (Calc) VBG Base Excess VBG Potassium Glucose Lactate Sodium 137 Potassium 3.0 L Chloride 100 Carbon Dioxide 29 Anion Gap 11 BUN 12 Creatinine 0.4 L Est GFR ( Amer) > 60 Est GFR (Non-Af Amer) > 60 POC Glucose (mg/dL) Random Glucose 135 H Lactic Acid Calcium 7.4 L Phosphorus Magnesium Total Bilirubin 1.1 AST 20 ALT 24 Alkaline Phosphatase 73 Troponin I Total Protein 5.9 L Albumin 2.9 L D Globulin 3.1 Albumin/Globulin Ratio 0.9 L Lipase Venous Blood Potassium Urine Color Urine Clarity Urine pH Ur Specific [place] Urine Protein Urine Glucose (UA) Urine Ketones Urine Blood Urine Nitrate Urine Bilirubin Urine Urobilinogen Ur Leukocyte Esterase Urine WBC (Auto) Urine RBC (Auto) Ur Squamous Epith Cells Stool Occult Blood Influenza Typ A,B (EIA) Blood Type O POSITIVE Antibody Screen Negative 04/11/18 04/11/18 04/11/18 17:57 18:35 23:08 WBC RBC Hgb Hct MCV MCH MCHC RDW Plt Count MPV Neut % (Auto) Lymph % (Auto) Dick[place] % (Auto) Eos % (Auto) Baso % (Auto) Neut # (Auto) Lymph # (Auto) [place] # (Auto) Eos # (Auto) Baso # (Auto) Neutrophils % (Manual) Band Neutrophils % Lymphocytes % (Manual) Monocytes % (Manual) Metamyelocytes % Differential Comment Platelet Estimate Hypochromasia (manual) Poikilocytosis (manual Anisocytosis (manual) Microcytosis (manual) Macrocytosis (manual) Target Cells Tear Drop Cells Ovalocytes PT INR APTT Fibrinogen pO2 VBG pH VBG pCO2 VBG HCO3 VBG Total CO2 VBG O2 Sat (Calc) VBG Base Excess VBG Potassium Glucose Lactate Sodium Potassium Chloride Carbon Dioxide Anion Gap BUN Creatinine Est GFR ( Amer) Est GFR (Non-Af Amer) POC Glucose (mg/dL) 157 H Random Glucose Lactic Acid Calcium Phosphorus 1.9 L Magnesium 1.2 L Total Bilirubin AST ALT Alkaline Phosphatase Troponin I Total Protein Albumin Globulin Albumin/Globulin Ratio Lipase Venous Blood Potassium Urine Color Urine Clarity Urine pH Ur Specific [place] Urine Protein Urine Glucose (UA) Urine Ketones Urine Blood Urine Nitrate Urine Bilirubin Urine Urobilinogen Ur Leukocyte Esterase Urine WBC (Auto) Urine RBC (Auto) Ur Squamous Epith Cells Stool Occult Blood Influenza Typ A,B (EIA) Negative for flu a/b Blood Type Antibody Screen 04/11/18 04/12/18 04/12/18 23:11 06:10 06:10 WBC 1.2 L* D RBC 3.06 L Hgb 8.4 L Hct 25.3 L MCV 82.6 MCH 27.4 MCHC 33.2 RDW 17.9 H Plt Count 22 L* D MPV 7.4 Neut % (Auto) 84.3 H Lymph % (Auto) 13.1 L Dick[place] % (Auto) 2.3 Eos % (Auto) 0.2 Baso % (Auto) 0.1 Neut # (Auto) 1.0 L Lymph # (Auto) 0.2 L [place] # (Auto) 0.0 Eos # (Auto) 0.0 Baso # (Auto) 0.0 Neutrophils % (Manual) Band Neutrophils % Lymphocytes % (Manual) Monocytes % (Manual) Metamyelocytes % Differential Comment Platelet Estimate Hypochromasia (manual) Poikilocytosis (manual Anisocytosis (manual) Microcytosis (manual) Macrocytosis (manual) Target Cells Tear Drop Cells Ovalocytes PT INR APTT Fibrinogen pO2 VBG pH VBG pCO2 VBG HCO3 VBG Total CO2 VBG O2 Sat (Calc) VBG Base Excess VBG Potassium Glucose Lactate Sodium 136 Potassium 2.7 L Chloride 101 Carbon Dioxide 28 Anion Gap 11 BUN 10 Creatinine 0.3 L Est GFR ( Amer) > 60 Est GFR (Non-Af Amer) > 60 POC Glucose (mg/dL) Random Glucose 121 H Lactic Acid 1.4 Calcium 7.3 L Phosphorus 2.0 L Magnesium 1.5 L Total Bilirubin 1.8 H AST 22 ALT 23 Alkaline Phosphatase 73 Troponin I Total Protein 5.9 L Albumin 2.9 L Globulin 3.0 Albumin/Globulin Ratio 1.0 Lipase Venous Blood Potassium Urine Color Urine Clarity Urine pH Ur Specific [place] Urine Protein Urine Glucose (UA) Urine Ketones Urine Blood Urine Nitrate Urine Bilirubin Urine Urobilinogen Ur Leukocyte Esterase Urine WBC (Auto) Urine RBC (Auto) Ur Squamous Epith Cells Stool Occult Blood Influenza Typ A,B (EIA) Blood Type Antibody Screen 04/12/18 04/12/18 04/12/18 06:10 06:10 06:10 WBC RBC Hgb Hct MCV MCH MCHC RDW Plt Count MPV Neut % (Auto) Lymph % (Auto) Dick[place] % (Auto) Eos % (Auto) Baso % (Auto) Neut # (Auto) Lymph # (Auto) [place] # (Auto) Eos # (Auto) Baso # (Auto) Neutrophils % (Manual) Band Neutrophils % Lymphocytes % (Manual) Monocytes % (Manual) Metamyelocytes % Differential Comment Platelet Estimate Hypochromasia (manual) Poikilocytosis (manual Anisocytosis (manual) Microcytosis (manual) Macrocytosis (manual) Target Cells Tear Drop Cells Ovalocytes PT 16.8 H INR 1.5 APTT 28 Fibrinogen 240 pO2 VBG pH VBG pCO2 VBG HCO3 VBG Total CO2 VBG O2 Sat (Calc) VBG Base Excess VBG Potassium Glucose Lactate Sodium Potassium Chloride Carbon Dioxide Anion Gap BUN Creatinine Est GFR ( Amer) Est GFR (Non-Af Amer) POC Glucose (mg/dL) 105 Random Glucose Lactic Acid 1.2 Calcium Phosphorus Magnesium Total Bilirubin AST ALT Alkaline Phosphatase Troponin I Total Protein Albumin Globulin Albumin/Globulin Ratio Lipase Venous Blood Potassium Urine Color Urine Clarity Urine pH Ur Specific [place] Urine Protein Urine Glucose (UA) Urine Ketones Urine Blood Urine Nitrate Urine Bilirubin Urine Urobilinogen Ur Leukocyte Esterase Urine WBC (Auto) Urine RBC (Auto) Ur Squamous Epith Cells Stool Occult Blood Influenza Typ A,B (EIA) Blood Type Antibody Screen 04/12/18 08:08 WBC RBC Hgb Hct MCV MCH MCHC RDW Plt Count MPV Neut % (Auto) Lymph % (Auto) Dick[place] % (Auto) Eos % (Auto) Baso % (Auto) Neut # (Auto) Lymph # (Auto) [place] # (Auto) Eos # (Auto) Baso # (Auto) Neutrophils % (Manual) Band Neutrophils % Lymphocytes % (Manual) Monocytes % (Manual) Metamyelocytes % Differential Comment Platelet Estimate Hypochromasia (manual) Poikilocytosis (manual Anisocytosis (manual) Microcytosis (manual) Macrocytosis (manual) Target Cells Tear Drop Cells Ovalocytes PT INR APTT Fibrinogen pO2 VBG pH VBG pCO2 VBG HCO3 VBG Total CO2 VBG O2 Sat (Calc) VBG Base Excess VBG Potassium Glucose Lactate Sodium Potassium Chloride Carbon Dioxide Anion Gap BUN Creatinine Est GFR ( Amer) Est GFR (Non-Af Amer) POC Glucose (mg/dL) Random Glucose Lactic Acid Calcium Phosphorus Magnesium Total Bilirubin AST ALT Alkaline Phosphatase Troponin I Total Protein Albumin Globulin Albumin/Globulin Ratio Lipase Venous Blood Potassium Urine Color Urine Clarity Urine pH Ur Specific [place] Urine Protein Urine Glucose (UA) Urine Ketones Urine Blood Urine Nitrate Urine Bilirubin Urine Urobilinogen Ur Leukocyte Esterase Urine WBC (Auto) Urine RBC (Auto) Ur Squamous Epith Cells Stool Occult Blood Positive H Influenza Typ A,B (EIA) Blood Type Antibody Screen
[2018-04-12] MEDS ORDERED: Magnesium Sulfate 1 gm in D5W 1 GM/100 ML BAG IVPB ONE (10:00)
[2018-04-12] MEDS ORDERED: Potassium Phosphate 20 MMOLE in Sodium Chloride 0.9% 250 ML IV SCH (10:15)
[2018-04-12 12:55] LABS: FECAL LEUKOCYTES NEGATIVE (NEGATIVE)
[2018-04-12 13:00] LABS: C DIFF TOXIN A B NEGATIVE (NEGATIVE)
--- NOTE | 2018-04-12 14:00 | CP.PCM.CON ---
History of Present Illness - History of Present Illness History of Present Illness: GI Fellow PGY4, consult note. 58F presenting with abdominal pain, vomiting, diarrhea. She has been having progressively worsening abdominal pain x1 week. The pain is central and right sided predominately. Pressure makes the pain worse and has been having associated blood BMs recently. Since being in the hospital the pain has improved and she is feeling slightly better. She has been tachycardic with a fever. Blood pressure has been stable. Labs showed pancytopenia with a dramatic decrease in WBC and ANC ~500 at one point. Hb 8.0. Electrolytes have been abnormal, low K, low Mg. CT A/P is abnormal, significant for Pancolitis and R psoas muscle lesion, possible abscess. IR has been consulted. Patient is in ICU, very sick, sacral ulcers. Hospice is consulted to speak with patient today. Patient reports she is willing to have procedures performed at this point but is DNR/DNI. 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 Recently on Eliquis for DVT. PSHx - Orthopedic surgery. Denies endoscopic history. FMHx - No GI related cancers SocHx- Denies smoking and alcohol use. 12pt ROS completed and negative except for above. Past Patient History - Infectious Disease Hx of Infectious Diseases: None - Past Medical History & Family History Past Medical History?: Yes - Past Social History Smoking Status: Never Smoked - CARDIAC Hx Atrial Fibrillation: No Hx Cardia Arrhythmia: No Hx Congestive Heart Failure: No Hx Hypercholesterolemia: No Hx Hypertension: Yes Hx Mitral Valve Prolapse: No Hx Pacemaker: No Hx Peripheral Edema: No - PULMONARY Hx Asthma: Yes (CHILDHOOD NO MEDS) Hx Bronchitis: No Hx Chronic Obstructive Pulmonary Disease (COPD): No Hx Emphysema: No Hx Pneumonia: Yes (Childhood) Hx Pulmonary Embolism: No Hx Sleep Apnea: No - NEUROLOGICAL Hx Neurological Disorder: No - HEENT Hx HEENT Problems: No Other/Comment: GLASSES - RENAL Hx Chronic Kidney Disease: No - ENDOCRINE/METABOLIC Hx Endocrine Disorders: No - HEMATOLOGICAL/ONCOLOGICAL Hx Cancer: Yes (breast 2018; mets to bone) Other/Comment: in chemotherapy every wednesday - INTEGUMENTARY Hx Dermatological Problems: No - MUSCULOSKELETAL/RHEUMATOLOGICAL Hx Fractures: Yes (TOE/ARM NO SURGERY) - GENITOURINARY/GYNECOLOGICAL Hx Genitourinary Disorders: Yes Other/Comment: right breast cancer - PSYCHIATRIC Hx Substance Use: No - SURGICAL HISTORY Hx Surgeries: Yes Hx Section: Yes (one) Other/Comment: breast removal s/p breast ca july 2014. - ANESTHESIA Hx Anesthesia: Yes Hx Anesthesia Reactions: No Hx Malignant Hyperthermia: No Meds Allergies/Adverse Reactions: Allergies Allergy/AdvReac Type Severity Reaction Status Date / Time No Known Allergies Allergy Verified 02/23/18 14:57 - Medications Medications: Current Medications Vancomycin/Sodium Chloride (Vancomycin 1 Gm/Ns 200 Ml) 1 gm in 200 mls @ 133.333 mls/hr IVPB Q12H SARAH; Protocol Stop: 04/17/18 01:56 Last Admin: 04/12/18 01:30 Dose: 133.333 mls/hr Cefepime HCl (Maxipime Iv 2 Gm Premix) 2 gm in 100 mls @ 100 mls/hr IVPB Q8H SARAH; Protocol Stop: 04/16/18 21:31 Last Admin: 04/12/18 05:11 Dose: 100 mls/hr Lactated Ringer's (Lactated Ringer's) 1,000 mls @ 100 mls/hr IV .Q10H SARAH Last Admin: 04/12/18 07:23 Dose: Not Given Metronidazole (Flagyl) 500 mg in 100 mls @ 100 mls/hr IVPB Q8H SARAH; Protocol Last Admin: 04/12/18 08:17 Dose: 100 mls/hr Potassium Phosphate 30 mmole/ (Sodium Chloride) 260 mls @ 42.5 mls/hr IVPB ONCE ONE Stop: 04/12/18 14:37 Last Admin: 04/12/18 08:17 Dose: 42.5 mls/hr Potassium Chloride (Potassium Chloride 20 Meq/100 Ml) 20 meq in 100 mls @ 50 mls/hr IVPB Q2H SARAH Stop: 04/12/18 14:29 Last Admin: 04/12/18 13:39 Dose: 50 mls/hr Morphine Sulfate (Morphine) 2 mg IVP Q4 PRN PRN Reason: Pain, moderate (4-7) Last Admin: 04/12/18 11:39 Dose: 2 mg Pantoprazole Sodium (Protonix Inj) 40 mg IVP Q12H SARAH Last Admin: 04/12/18 08:49 Dose: 40 mg Physical Exam - Constitutional Appears: Toxic, Chronically Ill - Head Exam Head Exam: absent: ATRAUMATIC, NORMAL INSPECTION Additional comments: Radiation changes - Eye Exam Eye Exam: EOMI, Normal appearance - ENT Exam ENT Exam: Mucous Membranes Dry Additional comments: Thrush - Respiratory Exam Respiratory Exam: Clear to Auscultation Bilateral, NORMAL BREATHING PATTERN. absent: Wheezes - Cardiovascular Exam Cardiovascular Exam: REGULAR RHYTHM, +S1, +S2 - GI/Abdominal Exam GI & Abdominal Exam: Normal Bowel Sounds, Soft, Tenderness. absent: Organomegaly - Extremities Exam Extremities exam: Positive for: normal inspection, pedal edema - Neurological Exam Neurological exam: Alert, CN II-XII Intact, Oriented x3 - Psychiatric Exam Psychiatric exam: Depressed, Normal Affect - Skin Skin Exam: Normal Color, Warm Results - Vital Signs Recent Vital Signs: Last Vital Signs Temp 98.3 F 04/12/18 02:30 Pulse 100 H 04/12/18 07:56 Resp 21 04/12/18 07:56 BP 111/70 04/12/18 07:56 Pulse Ox 100 04/12/18 07:56 - Labs Result Diagrams: 04/12/18 06:10 04/12/18 06:10 Labs: Laboratory Results - last 24 hr 04/11/18 04/11/18 04/11/18 14:00 15:32 15:54 WBC RBC Hgb Hct MCV MCH MCHC RDW Plt Count MPV Neut % (Auto) Lymph % (Auto) [place] % (Auto) Eos % (Auto) Baso % (Auto) Neut # (Auto) Lymph # (Auto) [place] # (Auto) Eos # (Auto) Baso # (Auto) Differential Comment PT 18.4 H INR 1.7 APTT 30 Fibrinogen pO2 18 L VBG pH 7.45 H VBG pCO2 45 VBG HCO3 28.1 VBG Total CO2 32.7 H VBG O2 Sat (Calc) 35.4 L VBG Base Excess 6.4 H VBG Potassium 2.7 L Sodium 143.0 Chloride 105.0 Glucose 120 H Lactate 2.5 H Potassium Carbon Dioxide Anion Gap BUN Creatinine Est GFR ( Amer) Est GFR (Non-Af Amer) POC Glucose (mg/dL) Random Glucose Lactic Acid Calcium Phosphorus Magnesium Total Bilirubin AST ALT Alkaline Phosphatase Total Protein Albumin Globulin Albumin/Globulin Ratio Venous Blood Potassium 2.7 L Urine Color Yellow Urine Clarity Hazy Urine pH 6.0 Ur Specific [place] 1.028 Urine Protein 2+ H Urine Glucose (UA) Normal Urine Ketones Trace Urine Blood 2+ H Urine Nitrate Negative Urine Bilirubin Negative Urine Urobilinogen Normal Ur Leukocyte Esterase Neg Urine WBC (Auto) 15 H Urine RBC (Auto) 13 H Ur Squamous Epith Cells 1 Stool Occult Blood Stool Leukocytes, Qual C. difficile Ag & Toxin Influenza Typ A,B (EIA) Blood Type Antibody Screen 04/11/18 04/11/18 04/11/18 17:57 17:57 17:57 WBC 0.7 L* D RBC 3.13 L Hgb 8.0 L Hct 25.6 L MCV 82.0 MCH 25.5 L MCHC 31.1 L RDW 20.6 H Plt Count 33 L D MPV 8.3 Neut % (Auto) 80.6 H Lymph % (Auto) 16.6 L [place] % (Auto) 2.1 Eos % (Auto) 0.2 Baso % (Auto) 0.5 Neut # (Auto) 0.5 L Lymph # (Auto) 0.1 L [place] # (Auto) 0.0 Eos # (Auto) 0.0 Baso # (Auto) 0.0 Differential Comment PT INR APTT Fibrinogen pO2 VBG pH VBG pCO2 VBG HCO3 VBG Total CO2 VBG O2 Sat (Calc) VBG Base Excess VBG Potassium Sodium 137 Chloride 100 Glucose Lactate Potassium 3.0 L Carbon Dioxide 29 Anion Gap 11 BUN 12 Creatinine 0.4 L Est GFR ( Amer) > 60 Est GFR (Non-Af Amer) > 60 POC Glucose (mg/dL) Random Glucose 135 H Lactic Acid Calcium 7.4 L Phosphorus Magnesium Total Bilirubin 1.1 AST 20 ALT 24 Alkaline Phosphatase 73 Total Protein 5.9 L Albumin 2.9 L D Globulin 3.1 Albumin/Globulin Ratio 0.9 L Venous Blood Potassium Urine Color Urine Clarity Urine pH Ur Specific [place] Urine Protein Urine Glucose (UA) Urine Ketones Urine Blood Urine Nitrate Urine Bilirubin Urine Urobilinogen Ur Leukocyte Esterase Urine WBC (Auto) Urine RBC (Auto) Ur Squamous Epith Cells Stool Occult Blood Stool Leukocytes, Qual C. difficile Ag & Toxin Influenza Typ A,B (EIA) Blood Type O POSITIVE Antibody Screen Negative 04/11/18 04/11/18 04/11/18 17:57 18:35 23:08 WBC RBC Hgb Hct MCV MCH MCHC RDW Plt Count MPV Neut % (Auto) Lymph % (Auto) [place] % (Auto) Eos % (Auto) Baso % (Auto) Neut # (Auto) Lymph # (Auto) [place] # (Auto) Eos # (Auto) Baso # (Auto) Differential Comment PT INR APTT Fibrinogen pO2 VBG pH VBG pCO2 VBG HCO3 VBG Total CO2 VBG O2 Sat (Calc) VBG Base Excess VBG Potassium Sodium Chloride Glucose Lactate Potassium Carbon Dioxide Anion Gap BUN Creatinine Est GFR ( Amer) Est GFR (Non-Af Amer) POC Glucose (mg/dL) 157 H Random Glucose Lactic Acid Calcium Phosphorus 1.9 L Magnesium 1.2 L Total Bilirubin AST ALT Alkaline Phosphatase Total Protein Albumin Globulin Albumin/Globulin Ratio Venous Blood Potassium Urine Color Urine Clarity Urine pH Ur Specific [place] Urine Protein Urine Glucose (UA) Urine Ketones Urine Blood Urine Nitrate Urine Bilirubin Urine Urobilinogen Ur Leukocyte Esterase Urine WBC (Auto) Urine RBC (Auto) Ur Squamous Epith Cells Stool Occult Blood Stool Leukocytes, Qual C. difficile Ag & Toxin Influenza Typ A,B (EIA) Negative for flu a/b Blood Type Antibody Screen 04/11/18 04/12/18 04/12/18 23:11 06:10 06:10 WBC 1.2 L* D RBC 3.06 L Hgb 8.4 L Hct 25.3 L MCV 82.6 MCH 27.4 MCHC 33.2 RDW 17.9 H Plt Count 22 L* D MPV 7.4 Neut % (Auto) 84.3 H Lymph % (Auto) 13.1 L [place] % (Auto) 2.3 Eos % (Auto) 0.2 Baso % (Auto) 0.1 Neut # (Auto) 1.0 L Lymph # (Auto) 0.2 L [place] # (Auto) 0.0 Eos # (Auto) 0.0 Baso # (Auto) 0.0 Differential Comment PT INR APTT Fibrinogen pO2 VBG pH VBG pCO2 VBG HCO3 VBG Total CO2 VBG O2 Sat (Calc) VBG Base Excess VBG Potassium Sodium 136 Chloride 101 Glucose Lactate Potassium 2.7 L Carbon Dioxide 28 Anion Gap 11 BUN 10 Creatinine 0.3 L Est GFR ( Amer) > 60 Est GFR (Non-Af Amer) > 60 POC Glucose (mg/dL) Random Glucose 121 H Lactic Acid 1.4 Calcium 7.3 L Phosphorus 2.0 L Magnesium 1.5 L Total Bilirubin 1.8 H AST 22 ALT 23 Alkaline Phosphatase 73 Total Protein 5.9 L Albumin 2.9 L Globulin 3.0 Albumin/Globulin Ratio 1.0 Venous Blood Potassium Urine Color Urine Clarity Urine pH Ur Specific [place] Urine Protein Urine Glucose (UA) Urine Ketones Urine Blood Urine Nitrate Urine Bilirubin Urine Urobilinogen Ur Leukocyte Esterase Urine WBC (Auto) Urine RBC (Auto) Ur Squamous Epith Cells Stool Occult Blood Stool Leukocytes, Qual C. difficile Ag & Toxin Influenza Typ A,B (EIA) Blood Type Antibody Screen 04/12/18 04/12/18 04/12/18 06:10 06:10 06:10 WBC RBC Hgb Hct MCV MCH MCHC RDW Plt Count MPV Neut % (Auto) Lymph % (Auto) [place] % (Auto) Eos % (Auto) Baso % (Auto) Neut # (Auto) Lymph # (Auto) [place] # (Auto) Eos # (Auto) Baso # (Auto) Differential Comment PT 16.8 H INR 1.5 APTT 28 Fibrinogen 240 pO2 VBG pH VBG pCO2 VBG HCO3 VBG Total CO2 VBG O2 Sat (Calc) VBG Base Excess VBG Potassium Sodium Chloride Glucose Lactate Potassium Carbon Dioxide Anion Gap BUN Creatinine Est GFR ( Amer) Est GFR (Non-Af Amer) POC Glucose (mg/dL) 105 Random Glucose Lactic Acid 1.2 Calcium Phosphorus Magnesium Total Bilirubin AST ALT Alkaline Phosphatase Total Protein Albumin Globulin Albumin/Globulin Ratio Venous Blood Potassium Urine Color Urine Clarity Urine pH Ur Specific [place] Urine Protein Urine Glucose (UA) Urine Ketones Urine Blood Urine Nitrate Urine Bilirubin Urine Urobilinogen Ur Leukocyte Esterase Urine WBC (Auto) Urine RBC (Auto) Ur Squamous Epith Cells Stool Occult Blood Stool Leukocytes, Qual C. difficile Ag & Toxin Influenza Typ A,B (EIA) Blood Type Antibody Screen 04/12/18 04/12/18 04/12/18 08:00 08:08 11:08 WBC RBC Hgb Hct MCV MCH MCHC RDW Plt Count MPV Neut % (Auto) Lymph % (Auto) [place] % (Auto) Eos % (Auto) Baso % (Auto) Neut # (Auto) Lymph # (Auto) [place] # (Auto) Eos # (Auto) Baso # (Auto) Differential Comment PT INR APTT Fibrinogen pO2 VBG pH VBG pCO2 VBG HCO3 VBG Total CO2 VBG O2 Sat (Calc) VBG Base Excess VBG Potassium Sodium Chloride Glucose Lactate Potassium Carbon Dioxide Anion Gap BUN Creatinine Est GFR ( Amer) Est GFR (Non-Af Amer) POC Glucose (mg/dL) 105 Random Glucose Lactic Acid Calcium Phosphorus Magnesium Total Bilirubin AST ALT Alkaline Phosphatase Total Protein Albumin Globulin Albumin/Globulin Ratio Venous Blood Potassium Urine Color Urine Clarity Urine pH Ur Specific [place] Urine Protein Urine Glucose (UA) Urine Ketones Urine Blood Urine Nitrate Urine Bilirubin Urine Urobilinogen Ur Leukocyte Esterase Urine WBC (Auto) Urine RBC (Auto) Ur Squamous Epith Cells Stool Occult Blood Positive H Stool Leukocytes, Qual Negative C. difficile Ag & Toxin Negative Influenza Typ A,B (EIA) Blood Type Antibody Screen Assessment & Plan - Assessment and Plan (Free Text) Assessment: #Acute abdominal pain #pancolitis #Panctyopenia #R Psoas lesion #Metastatic breast CA on Chemo, radiation #Sacral ulcers #Thrush #Obesity #Abnormal electrolytes PLAN: -Likely ischemic colitis. Consider neutropenic enterocolitis on the differential and treat accordingly with broad spectrum abx. Currently on cefepime, flagyl, vanco. -f/u stool and other cultures. C.diff negative. -Fluconazole for thrush. -IR consulted for ?R psoas abscess aspiration -f/u consult oncology, surgery, ID -Electrolyte replacements per ICU. -Continue IVF per ICU. -Would not recommend colonoscopy at this time as patient is very sick, and high risk for perforation, bleeding. -Will consider EGD tomorrow, but at risk for bleeding. NPO PM. -Clear Liquid diet -DNR/DNI. Refused hospice. - Date & Time Date: 04/12/18 Time: 16:05
--- NOTE | 2018-04-12 14:48 | CP.PCM.PCO ---
<Eleni Bran - Last Filed: 04/12/18 14:48> Physician Communication Note - Physician Communication Note Physician Communication Note: see above <Onesimo Tsai - Last Filed: 04/12/18 16:36> Attending/Attestation - Attestation I have personally seen and examined this patient.: Yes I have fully participated in the care of the patient.: Yes I have reviewed all pertinent clinical information: Yes Notes (Text): 04/12/18 16:35 Patient seen and examined in the intensive care unit. Transfered to ICU for GI bleeding Status post transfusion of 2 units packed RBCs and FFP Seen by gastroenterology Continue Protonix Pancytopenia secondary to chemotherapy Transfuse platelets Monitor H&H
--- NOTE | 2018-04-12 15:50 | CP.PCM.CON ---
History of Present Illness - History of Present Illness History of Present Illness: Palliative consult requested by Doctor Law for goals of care discussion Patient is a 58 yo female admitted with abdominal pain, brown, non bloody diarrhea and vomiting X 1 week. patient also complained of generalized abdominal pain, radiating to the back. Patient was found to be with positive occult blood and Hb 8.6, WBC 1.2 and platelets of 22.. Patient has known Hx of breast cancer, S/P B/L mastectomy and on chemo Tx. Patient is fallowed by Doctor Arthur. Patient was diagnosed with sepsis, ID consult called. Patient placed on Quadruple Iv antibiotics. 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 Hx: single, lives at home, mostly bed ridden, uses [employer]. Hx: twin brother last year from liver cancer Review of Systems - Constitutional Constitutional: Fatigue, Weakness - EENT Eyes: absent: As Per HPI, Blind Spots, Blurred Vision, Change in Vision, Decreased Night Vision, Diplopia, Discharge, Dry Eye, Exophthalmos, Floaters, Irritation, Itchy Eyes, Loss of Peripheral Vision, Pain, Photophobia, Requires Corrective Lenses, Sees Flashes, Spots in Vision, Tunnel Vision, Other Visual Disturbances, Loss of Vision, Other Ears: absent: As Per HPI, Decreased Hearing, Ear Discharge, Ear Pain, Tinnitus, Abnormal Hearing, Disequilibrium, Dizziness, Other Nose/Mouth/Throat: absent: As Per HPI, Epistaxis, Nasal Congestion, Nasal Discharge, Nasal Obstruction, Nasal Trauma, Nose Pain, Post Nasal Drip, Sinus Pain, Sinus Pressure, Bleeding Gums, Change in Voice, Dental Pain, Dry Mouth, Dysphagia, Halitosis, Hoarsness, Lip Swelling, Mouth Lesions, Mouth Pain, Odynophagia, Sore Throat, Throat Swelling, Tongue Swelling, Facial Pain, Neck Pain, Neck Mass, Other - Breasts Additional comments: B/L mastectomy - Cardiovascular Cardiovascular: Rapid Heart Rate - Respiratory Respiratory: absent: As Per HPI, Cough, Dyspnea, Hemoptysis, Dyspnea on Exertion, Wheezing, Snoring, Stridor, Pain on Inspiration, Chest Congestion, Excessive Mucous Production, Change in Mucous Color, Pain with Coughing, Other - Gastrointestinal Gastrointestinal: Abdominal Pain, Nausea - Genitourinary Genitourinary: absent: As Per HPI, Change in Urinary Stream, Difficulty Urinating, Dysuria, Flank Pain, Hematuria, Pyuria, Nocturia, Urinary Incontinence, Urinary Frequency, Urinary Hesitance, Urinary Urgency, Voiding Freq/Small Amts, Freq UTI, Hx Renal/Bladder Calculi, Hx /Renal Surgery, Bladder Distension, Other - Reproductive: Female Reproductive:Female: Post Menopausal - Menstruation Menstruation: Post Menopausal - Musculoskeletal Musculoskeletal: Limited Range of Motion, Muscle Weakness - Integumentary Additional comments: sacral pressure sores - Neurological Neurological: absent: As Per HPI, Abnormal Gait, Abnormal Hearing, Abnormal Movements, Abnormal Speech, Behavioral Changes, Burning Sensations, Confusion, Convulsions, Disequilibrium, Dizziness, Numbness, Focal Weakness, Frequent Falls, Headaches, Lack of Coordination, Loss of Vision, Memory Loss, Paresthesias, Radicular Pain, Restless Legs, Sensory Deficit, Syncope, Tingling, Tremor, Vertigo, Weakness, Other Visual Disturbances, Other - Psychiatric Psychiatric: Anxiety, Depression - Endocrine Endocrine: absent: As Per HPI, Change in Body Appearance, Change in Libido, Cold Intolorance, Deepening of Voice, Excessive Sweating, Fatigue, Flushing, Heat Intolorance, Increase in Ring/Shoe/Hat Size, Palpitations, Polydipsia, Polyphagia, Polyuria, Other - Hematologic/Lymphatic Hematologic: Easy Bleeding Past Patient History - Infectious Disease Hx of Infectious Diseases: None - Past Medical History & Family History Past Medical History?: Yes - Past Social History Smoking Status: Never Smoked - CARDIAC Hx Atrial Fibrillation: No Hx Cardia Arrhythmia: No Hx Congestive Heart Failure: No Hx Hypercholesterolemia: No Hx Hypertension: Yes Hx Mitral Valve Prolapse: No Hx Pacemaker: No Hx Peripheral Edema: No - PULMONARY Hx Asthma: Yes (CHILDHOOD NO MEDS) Hx Bronchitis: No Hx Chronic Obstructive Pulmonary Disease (COPD): No Hx Emphysema: No Hx Pneumonia: Yes (Childhood) Hx Pulmonary Embolism: No Hx Sleep Apnea: No - NEUROLOGICAL Hx Neurological Disorder: No - HEENT Hx HEENT Problems: No Other/Comment: GLASSES - RENAL Hx Chronic Kidney Disease: No - ENDOCRINE/METABOLIC Hx Endocrine Disorders: No - HEMATOLOGICAL/ONCOLOGICAL Hx Cancer: Yes (breast 2018; mets to bone) Other/Comment: in chemotherapy every wednesday - INTEGUMENTARY Hx Dermatological Problems: No - MUSCULOSKELETAL/RHEUMATOLOGICAL Hx Fractures: Yes (TOE/ARM NO SURGERY) - GENITOURINARY/GYNECOLOGICAL Hx Genitourinary Disorders: Yes Other/Comment: right breast cancer - PSYCHIATRIC Hx Substance Use: No - SURGICAL HISTORY Hx Surgeries: Yes Hx Section: Yes (one) Other/Comment: breast removal s/p breast ca july 2014. - ANESTHESIA Hx Anesthesia: Yes Hx Anesthesia Reactions: No Hx Malignant Hyperthermia: No Meds Allergies/Adverse Reactions: Allergies Allergy/AdvReac Type Severity Reaction Status Date / Time No Known Allergies Allergy Verified 02/23/18 14:57 - Medications Medications: Current Medications Vancomycin/Sodium Chloride (Vancomycin 1 Gm/Ns 200 Ml) 1 gm in 200 mls @ 133.333 mls/hr IVPB Q12H SARAH; Protocol Stop: 04/17/18 01:56 Last Admin: 04/12/18 01:30 Dose: 133.333 mls/hr Cefepime HCl (Maxipime Iv 2 Gm Premix) 2 gm in 100 mls @ 100 mls/hr IVPB Q8H SARAH; Protocol Stop: 04/16/18 21:31 Last Admin: 04/12/18 14:23 Dose: 100 mls/hr Lactated Ringer's (Lactated Ringer's) 1,000 mls @ 100 mls/hr IV .Q10H SARAH Last Admin: 04/12/18 07:23 Dose: Not Given Metronidazole (Flagyl) 500 mg in 100 mls @ 100 mls/hr IVPB Q8H SARAH; Protocol Last Admin: 04/12/18 08:17 Dose: 100 mls/hr Fluconazole 100 mg/ (Miscellaneous) 50 mls @ 100 mls/hr IVPB DAILY SARAH; Protocol Morphine Sulfate (Morphine) 2 mg IVP Q4 PRN PRN Reason: Pain, moderate (4-7) Last Admin: 04/12/18 11:39 Dose: 2 mg Pantoprazole Sodium (Protonix Inj) 40 mg IVP Q12H SARAH Last Admin: 04/12/18 08:49 Dose: 40 mg Physical Exam - Constitutional Appears: Chronically Ill - Head Exam Head Exam: ATRAUMATIC, NORMAL INSPECTION, NORMOCEPHALIC - Eye Exam Eye Exam: EOMI, Normal appearance, PERRL Pupil Exam: NORMAL ACCOMODATION, PERRL - ENT Exam ENT Exam: Mucous Membranes Moist, Normal Exam - Respiratory Exam Respiratory Exam: Clear to Auscultation Bilateral, NORMAL BREATHING PATTERN - Cardiovascular Exam Cardiovascular Exam: Tachycardia, REGULAR RHYTHM - GI/Abdominal Exam GI & Abdominal Exam: Normal Bowel Sounds, Soft - Rectal Exam Rectal Exam: Deferred - Extremities Exam Extremities exam: Positive for: normal inspection Additional comments: pressure sore to left posterior calf - Back Exam Additional comments: multiple sacral pressure sores - Neurological Exam Neurological exam: Altered, Oriented x3 - Psychiatric Exam Psychiatric exam: Anxious, Depressed - Skin Skin Exam: Normal Color Results - Vital Signs Recent Vital Signs: Last Vital Signs Temp 98.3 F 04/12/18 02:30 Pulse 105 H 04/12/18 13:56 Resp 12 04/12/18 13:56 BP 106/78 04/12/18 13:56 Pulse Ox 100 04/12/18 13:56 - Labs Result Diagrams: 04/12/18 06:10 04/12/18 06:10 Labs: Laboratory Results - last 24 hr 04/11/18 04/11/18 04/11/18 15:32 15:54 17:57 WBC 0.7 L* D RBC 3.13 L Hgb 8.0 L Hct 25.6 L MCV 82.0 MCH 25.5 L MCHC 31.1 L RDW 20.6 H Plt Count 33 L D MPV 8.3 Neut % (Auto) 80.6 H Lymph % (Auto) 16.6 L [place] % (Auto) 2.1 Eos % (Auto) 0.2 Baso % (Auto) 0.5 Neut # (Auto) 0.5 L Lymph # (Auto) 0.1 L [place] # (Auto) 0.0 Eos # (Auto) 0.0 Baso # (Auto) 0.0 Differential Comment PT 18.4 H INR 1.7 APTT 30 Fibrinogen Sodium Potassium Chloride Carbon Dioxide Anion Gap BUN Creatinine Est GFR ( Amer) Est GFR (Non-Af Amer) POC Glucose (mg/dL) Random Glucose Lactic Acid Calcium Phosphorus Magnesium Total Bilirubin AST ALT Alkaline Phosphatase Total Protein Albumin Globulin Albumin/Globulin Ratio Urine Color Yellow Urine Clarity Hazy Urine pH 6.0 Ur Specific [place] 1.028 Urine Protein 2+ H Urine Glucose (UA) Normal Urine Ketones Trace Urine Blood 2+ H Urine Nitrate Negative Urine Bilirubin Negative Urine Urobilinogen Normal Ur Leukocyte Esterase Neg Urine WBC (Auto) 15 H Urine RBC (Auto) 13 H Ur Squamous Epith Cells 1 Stool Occult Blood Stool Leukocytes, Qual C. difficile Ag & Toxin Influenza Typ A,B (EIA) Blood Type Antibody Screen 04/11/18 04/11/18 04/11/18 17:57 17:57 17:57 WBC RBC Hgb Hct MCV MCH MCHC RDW Plt Count MPV Neut % (Auto) Lymph % (Auto) [place] % (Auto) Eos % (Auto) Baso % (Auto) Neut # (Auto) Lymph # (Auto) [place] # (Auto) Eos # (Auto) Baso # (Auto) Differential Comment PT INR APTT Fibrinogen Sodium 137 Potassium 3.0 L Chloride 100 Carbon Dioxide 29 Anion Gap 11 BUN 12 Creatinine 0.4 L Est GFR ( Amer) > 60 Est GFR (Non-Af Amer) > 60 POC Glucose (mg/dL) Random Glucose 135 H Lactic Acid Calcium 7.4 L Phosphorus 1.9 L Magnesium 1.2 L Total Bilirubin 1.1 AST 20 ALT 24 Alkaline Phosphatase 73 Total Protein 5.9 L Albumin 2.9 L D Globulin 3.1 Albumin/Globulin Ratio 0.9 L Urine Color Urine Clarity Urine pH Ur Specific [place] Urine Protein Urine Glucose (UA) Urine Ketones Urine Blood Urine Nitrate Urine Bilirubin Urine Urobilinogen Ur Leukocyte Esterase Urine WBC (Auto) Urine RBC (Auto) Ur Squamous Epith Cells Stool Occult Blood Stool Leukocytes, Qual C. difficile Ag & Toxin Influenza Typ A,B (EIA) Blood Type O POSITIVE Antibody Screen Negative 04/11/18 04/11/18 04/11/18 18:35 23:08 23:11 WBC RBC Hgb Hct MCV MCH MCHC RDW Plt Count MPV Neut % (Auto) Lymph % (Auto) [place] % (Auto) Eos % (Auto) Baso % (Auto) Neut # (Auto) Lymph # (Auto) [place] # (Auto) Eos # (Auto) Baso # (Auto) Differential Comment PT INR APTT Fibrinogen Sodium Potassium Chloride Carbon Dioxide Anion Gap BUN Creatinine Est GFR ( Amer) Est GFR (Non-Af Amer) POC Glucose (mg/dL) 157 H Random Glucose Lactic Acid 1.4 Calcium Phosphorus Magnesium Total Bilirubin AST ALT Alkaline Phosphatase Total Protein Albumin Globulin Albumin/Globulin Ratio Urine Color Urine Clarity Urine pH Ur Specific [place] Urine Protein Urine Glucose (UA) Urine Ketones Urine Blood Urine Nitrate Urine Bilirubin Urine Urobilinogen Ur Leukocyte Esterase Urine WBC (Auto) Urine RBC (Auto) Ur Squamous Epith Cells Stool Occult Blood Stool Leukocytes, Qual C. difficile Ag & Toxin Influenza Typ A,B (EIA) Negative for flu a/b Blood Type Antibody Screen 04/12/18 04/12/18 04/12/18 06:10 06:10 06:10 WBC 1.2 L* D RBC 3.06 L Hgb 8.4 L Hct 25.3 L MCV 82.6 MCH 27.4 MCHC 33.2 RDW 17.9 H Plt Count 22 L* D MPV 7.4 Neut % (Auto) 84.3 H Lymph % (Auto) 13.1 L [place] % (Auto) 2.3 Eos % (Auto) 0.2 Baso % (Auto) 0.1 Neut # (Auto) 1.0 L Lymph # (Auto) 0.2 L [place] # (Auto) 0.0 Eos # (Auto) 0.0 Baso # (Auto) 0.0 Differential Comment PT INR APTT Fibrinogen Sodium 136 Potassium 2.7 L Chloride 101 Carbon Dioxide 28 Anion Gap 11 BUN 10 Creatinine 0.3 L Est GFR ( Amer) > 60 Est GFR (Non-Af Amer) > 60 POC Glucose (mg/dL) Random Glucose 121 H Lactic Acid 1.2 Calcium 7.3 L Phosphorus 2.0 L Magnesium 1.5 L Total Bilirubin 1.8 H AST 22 ALT 23 Alkaline Phosphatase 73 Total Protein 5.9 L Albumin 2.9 L Globulin 3.0 Albumin/Globulin Ratio 1.0 Urine Color Urine Clarity Urine pH Ur Specific [place] Urine Protein Urine Glucose (UA) Urine Ketones Urine Blood Urine Nitrate Urine Bilirubin Urine Urobilinogen Ur Leukocyte Esterase Urine WBC (Auto) Urine RBC (Auto) Ur Squamous Epith Cells Stool Occult Blood Stool Leukocytes, Qual C. difficile Ag & Toxin Influenza Typ A,B (EIA) Blood Type Antibody Screen 04/12/18 04/12/18 04/12/18 06:10 06:10 08:00 WBC RBC Hgb Hct MCV MCH MCHC RDW Plt Count MPV Neut % (Auto) Lymph % (Auto) [place] % (Auto) Eos % (Auto) Baso % (Auto) Neut # (Auto) Lymph # (Auto) [place] # (Auto) Eos # (Auto) Baso # (Auto) Differential Comment PT 16.8 H INR 1.5 APTT 28 Fibrinogen 240 Sodium Potassium Chloride Carbon Dioxide Anion Gap BUN Creatinine Est GFR ( Amer) Est GFR (Non-Af Amer) POC Glucose (mg/dL) 105 Random Glucose Lactic Acid Calcium Phosphorus Magnesium Total Bilirubin AST ALT Alkaline Phosphatase Total Protein Albumin Globulin Albumin/Globulin Ratio Urine Color Urine Clarity Urine pH Ur Specific [place] Urine Protein Urine Glucose (UA) Urine Ketones Urine Blood Urine Nitrate Urine Bilirubin Urine Urobilinogen Ur Leukocyte Esterase Urine WBC (Auto) Urine RBC (Auto) Ur Squamous Epith Cells Stool Occult Blood Stool Leukocytes, Qual Negative C. difficile Ag & Toxin Negative Influenza Typ A,B (EIA) Blood Type Antibody Screen 04/12/18 04/12/18 08:08 11:08 WBC RBC Hgb Hct MCV MCH MCHC RDW Plt Count MPV Neut % (Auto) Lymph % (Auto) [place] % (Auto) Eos % (Auto) Baso % (Auto) Neut # (Auto) Lymph # (Auto) [place] # (Auto) Eos # (Auto) Baso # (Auto) Differential Comment PT INR APTT Fibrinogen Sodium Potassium Chloride Carbon Dioxide Anion Gap BUN Creatinine Est GFR ( Amer) Est GFR (Non-Af Amer) POC Glucose (mg/dL) 105 Random Glucose Lactic Acid Calcium Phosphorus Magnesium Total Bilirubin AST ALT Alkaline Phosphatase Total Protein Albumin Globulin Albumin/Globulin Ratio Urine Color Urine Clarity Urine pH Ur Specific [place] Urine Protein Urine Glucose (UA) Urine Ketones Urine Blood Urine Nitrate Urine Bilirubin Urine Urobilinogen Ur Leukocyte Esterase Urine WBC (Auto) Urine RBC (Auto) Ur Squamous Epith Cells Stool Occult Blood Positive H Stool Leukocytes, Qual C. difficile Ag & Toxin Influenza Typ A,B (EIA) Blood Type Antibody Screen Assessment & Plan - Assessment and Plan (Free Text) Assessment: Palliative consult DNR/DNI, there was not Advance Directive on chart, PPS 30% I reviewed all medical records, diagnostic studies, examined and interviewed patient in the bed Patient is alert, oriented X 3, in no acute distress. Patient appears depressed. Patient is obese with limited mobility in bed. Patient needs max assistance with repositioning in bed. Patient has multiple sacral pressure ulcers with various degrees of depth and size. Patient reports those areas are very painful when care provided or dressing changed. Wound cultures positive Staph infection. IV antibiotics on board. Breathing is regular. Denies cough. S/p B/L mastectomy. Abdomen large and soft, active BS. Patient has often urge to move her bowels, but unable. Uses bed roldan. Patient moves all 4 extremities with assistance. Limited active and passive ROM. GI consult called. Doctor Matty is suggesting diagnostic colonoscopy if patient agreed with it. WBC 1.2, Hb 8.4, Plat 22 BP 111/70, HR 100, O2Sat 100% 2 pm Family meeting attended by patient's father and sister, nurses medical assistants phlebotomists Doctor and myself, at patient's bedside. I reviewed patient's clinical presentation and elicited patient's and family's understanding of diagnosis. They all stated being aware of cancer diagnosis. earlier today I spoke to patient about very low WBC and risks associated with it if Chemo Tx continued, there for patient would need to wait to get better. I also spoke to Doctor Gibson about it and he agreed that Chemo Tx will be reconsidered again, once patient's condition gets more stable. Now with family presented I re visited that topic , making it clear one more time, that present patient's condition is not warranting the Chemo Tx. Patient looked upset but acknowledged it. In discussion expectations of overall care, I learned that patient and the family would want to precede with all ordinary measures to support life, including any further diagnostic studies. patient was clear that if her heart stops, or breathing becomes difficult, she would not want to be intubated nor CPR to be provided. At that point, patient would want to be allowed natural . CANDIDA introduced and signed by patient's father with patient's permission. Proposed colonscopy discussed. patient stated understanding of rationale for it and agreed. Impression * Advanced metastatic disease * Generalized weakness * Pancytopenia * Thrombocytopenia * Anemia due to occult blood loss * Depression related to diagnosis * Limited mobility * Sacral pressure sores * Patient wishes for natural if ordinary measures fail * CANDIDA signed Suggestions * Assist with ADLs * Monitor WBC and place on reversed isolation if further drops * Monitor for rectal bleed * Agree with Colonoscopy once Platelets count normalized * Patient may need a central line due to multiple IV antibiotics and need for t ransfusion * Refer to Pressure sore Nurse * DNR/DNI Patient did not want to discuss Hospice Care as previously suggested . Patient looks forard recovery to the level appropriate to continue with Chemo. Discussed with Doctor Gibson. Advance Care planing 60 min. Palliative care will continue to fallow with patient and family and offer support.
[2018-04-12] MEDS: Fluconazole IV 200mg/100 ml NS 100 MG in Premixed IV 1 EA IVPB SCH (17:31)
--- NOTE | 2018-04-12 18:02 | CP.PCM.PN ---
Subjective - Date & Time of Evaluation Date of Evaluation: 04/12/18 Time of Evaluation: 18:01 Objective - Vital Signs/Intake and Output Vital Signs (last 24 hours): Temp Pulse Resp BP Pulse Ox 98.3 F 103 H 29 H 101/65 100 04/12/18 02:30 04/12/18 17:10 04/12/18 17:10 04/12/18 17:10 04/12/18 17:10 Intake and Output: 04/12/18 04/12/18 06:59 18:59 Intake Total 3000 1194 Output Total 600 200 Balance 2400 994 - Medications Medications: Current Medications Vancomycin/Sodium Chloride (Vancomycin 1 Gm/Ns 200 Ml) 1 gm in 200 mls @ 133.333 mls/hr IVPB Q12H SARAH; Protocol Stop: 04/17/18 01:56 Last Admin: 04/12/18 16:19 Dose: 133.333 mls/hr Cefepime HCl (Maxipime Iv 2 Gm Premix) 2 gm in 100 mls @ 100 mls/hr IVPB Q8H SARAH; Protocol Stop: 04/16/18 21:31 Last Admin: 04/12/18 14:23 Dose: 100 mls/hr Lactated Ringer's (Lactated Ringer's) 1,000 mls @ 100 mls/hr IV .Q10H SARAH Last Admin: 04/12/18 07:23 Dose: Not Given Metronidazole (Flagyl) 500 mg in 100 mls @ 100 mls/hr IVPB Q8H SARAH; Protocol Last Admin: 04/12/18 16:20 Dose: 100 mls/hr Fluconazole 100 mg/ (Miscellaneous) 50 mls @ 100 mls/hr IVPB DAILY SARAH; Prot ocol Last Admin: 04/12/18 17:31 Dose: 100 mls/hr Morphine Sulfate (Morphine) 2 mg IVP Q4 PRN PRN Reason: Pain, moderate (4-7) Last Admin: 04/12/18 17:40 Dose: 2 mg Pantoprazole Sodium (Protonix Inj) 40 mg IVP Q12H SARAH Last Admin: 04/12/18 08:49 Dose: 40 mg - Labs Labs: 04/12/18 06:10 04/12/18 06:10 PT 16.8 SECONDS (9.7-12.2) H 04/12/18 06:10 INR 1.5 04/12/18 06:10 APTT 28 SECONDS (21-34) 04/12/18 06:10
--- NOTE | 2018-04-12 19:45 | CP.PCM.CON ---
History of Present Illness - History of Present Illness History of Present Illness: 58 year old female with a history of DVT, stage IV breast cancer (triple negative) with lung, bone, soft tissue metastasis, brain metastais s/p whole brain radiotherapy, pathologic fracture s/p orthopedic fixation, palliative XRT, on chemotherapy, admitted with diarrhea, dehydration, panctyopenia with neutropenia. The patient notes to worsening diarrhea which contained some blood. She was unable to care for herself, with limited PO intake, which prompted her family to bring her to the hospital. In the ER the patient was found to have severe neutropenia. A CT scan revealed diffuse colitis. In regards to her breast cancer, she was initially diagnosed with stage III multicentric right breast cancer (ER/ND positive HER2, and triple negative) s/p neoadjuvant chemotherapy, mastectomy and axillary LN dissection (ypT1b N1a) , radiation, and hormonal therapy. In 07/2017 she underwent a lung lesion biopsy which confirmed recurrent triple negative breast cancer. She was found to have brain metastasis in 02/2018 and underwent whole brain radiotherapy and switch to carboplatin and gemcitabine chemotherapy. Past medical history: Breast cancer Past surgical history: Right mastectomy with axillar LN dissection, left reductive mammoplasy Family history: Brother had renal cell carcinoma Social history: Denies tobacco, alcohol, and illicit drug use. Allergies: NKA Review of systems: All remaining review of systems including HEENT, cardiovascular, respiratory, gastrointestinal, genitourinary, musculoskeletal, dermatologic, neurologic, and psychiatric are negative unless mentioned in the HPI. Past Patient History - Infectious Disease Hx of Infectious Diseases: None - Past Medical History & Family History Past Medical History?: Yes - Past Social History Smoking Status: Never Smoked - CARDIAC Hx Atrial Fibrillation: No Hx Cardia Arrhythmia: No Hx Congestive Heart Failure: No Hx Hypercholesterolemia: No Hx Hypertension: Yes Hx Mitral Valve Prolapse: No Hx Pacemaker: No Hx Peripheral Edema: No - PULMONARY Hx Asthma: Yes (CHILDHOOD NO MEDS) Hx Bronchitis: No Hx Chronic Obstructive Pulmonary Disease (COPD): No Hx Emphysema: No Hx Pneumonia: Yes (Childhood) Hx Pulmonary Embolism: No Hx Sleep Apnea: No - NEUROLOGICAL Hx Neurological Disorder: No - HEENT Hx HEENT Problems: No Other/Comment: GLASSES - RENAL Hx Chronic Kidney Disease: No - ENDOCRINE/METABOLIC Hx Endocrine Disorders: No - HEMATOLOGICAL/ONCOLOGICAL Hx Cancer: Yes (breast 2018; mets to bone) Other/Comment: in chemotherapy every wednesday - INTEGUMENTARY Hx Dermatological Problems: No - MUSCULOSKELETAL/RHEUMATOLOGICAL Hx Fractures: Yes (TOE/ARM NO SURGERY) - GENITOURINARY/GYNECOLOGICAL Hx Genitourinary Disorders: Yes Other/Comment: right breast cancer - PSYCHIATRIC Hx Substance Use: No - SURGICAL HISTORY Hx Surgeries: Yes Hx Section: Yes (one) Other/Comment: breast removal s/p breast ca july 2014. - ANESTHESIA Hx Anesthesia: Yes Hx Anesthesia Reactions: No Hx Malignant Hyperthermia: No Meds Allergies/Adverse Reactions: Allergies Allergy/AdvReac Type Severity Reaction Status Date / Time No Known Allergies Allergy Verified 02/23/18 14:57 - Medications Medications: Current Medications Vancomycin/Sodium Chloride (Vancomycin 1 Gm/Ns 200 Ml) 1 gm in 200 mls @ 13 3.333 mls/hr IVPB Q12H SARAH; Protocol Stop: 04/17/18 01:56 Last Admin: 04/12/18 16:19 Dose: 133.333 mls/hr Cefepime HCl (Maxipime Iv 2 Gm Premix) 2 gm in 100 mls @ 100 mls/hr IVPB Q8H SARAH; Protocol Stop: 04/16/18 21:31 Last Admin: 04/12/18 14:23 Dose: 100 mls/hr Lactated Ringer's (Lactated Ringer's) 1,000 mls @ 100 mls/hr IV .Q10H SARAH Last Admin: 04/12/18 07:23 Dose: Not Given Metronidazole (Flagyl) 500 mg in 100 mls @ 100 mls/hr IVPB Q8H SARAH; Protocol Last Admin: 04/12/18 16:20 Dose: 100 mls/hr Fluconazole 100 mg/ (Miscellaneous) 50 mls @ 100 mls/hr IVPB DAILY SARAH; Protocol Last Admin: 04/12/18 17:31 Dose: 100 mls/hr Morphine Sulfate (Morphine) 2 mg IVP Q4 PRN PRN Reason: Pain, moderate (4-7) Last Admin: 04/12/18 17:40 Dose: 2 mg Nystatin (Nystatin Oral Susp) 5 ml PO QID SARAH Pantoprazole Sodium (Protonix Inj) 40 mg IVP Q12H SARAH Last Admin: 04/12/18 08:49 Dose: 40 mg Physical Exam - Head Exam Head Exam: ATRAUMATIC - Eye Exam Eye Exam: Normal appearance - ENT Exam ENT Exam: Mucous Membranes Dry - Respiratory Exam Respiratory Exam: NORMAL BREATHING PATTERN - Cardiovascular Exam Cardiovascular Exam: +S1, +S2 - GI/Abdominal Exam GI & Abdominal Exam: Normal Bowel Sounds - Extremities Exam Extremities exam: Positive for: pedal edema - Neurological Exam Neurological exam: Oriented x3 - Psychiatric Exam Psychiatric exam: Normal Affect, Normal Mood - Skin Skin Exam: Warm Results - Vital Signs Recent Vital Signs: Last Vital Signs Temp 98.3 F 04/12/18 16:00 Pulse 103 H 04/12/18 18:10 Resp 25 H 04/12/18 18:10 BP 110/74 04/12/18 18:10 Pulse Ox 100 04/12/18 18:10 - Labs Result Diagrams: 04/13/18 18:17 04/13/18 18:17 Labs: Laboratory Results - last 24 hr 04/11/18 04/11/18 04/11/18 17:57 17:57 23:08 WBC RBC Hgb Hct MCV MCH MCHC RDW Plt Count MPV Neut % (Auto) Lymph % (Auto) [place] % (Auto) Eos % (Auto) Baso % (Auto) Neut # (Auto) Lymph # (Auto) [place] # (Auto) Eos # (Auto) Baso # (Auto) PT INR APTT Fibrinogen Sodium Potassium Chloride Carbon Dioxide Anion Gap BUN Creatinine Est GFR ( Amer) Est GFR (Non-Af Amer) POC Glucose (mg/dL) 157 H Random Glucose Lactic Acid Calcium Phosphorus 1.9 L Magnesium 1.2 L Total Bilirubin AST ALT Alkaline Phosphatase Total Protein Albumin Globulin Albumin/Globulin Ratio Stool Occult Blood Stool Leukocytes, Qual C. difficile Ag & Toxin Blood Type O POSITIVE Antibody Screen Negative 04/11/18 04/12/18 04/12/18 23:11 06:10 06:10 WBC 1.2 L* D RBC 3.06 L Hgb 8.4 L Hct 25.3 L MCV 82.6 MCH 27.4 MCHC 33.2 RDW 17.9 H Plt Count 22 L* D MPV 7.4 Neut % (Auto) 84.3 H Lymph % (Auto) 13.1 L [place] % (Auto) 2.3 Eos % (Auto) 0.2 Baso % (Auto) 0.1 Neut # (Auto) 1.0 L Lymph # (Auto) 0.2 L [place] # (Auto) 0.0 Eos # (Auto) 0.0 Baso # (Auto) 0.0 PT INR APTT Fibrinogen Sodium 136 Potassium 2.7 L Chloride 101 Carbon Dioxide 28 Anion Gap 11 BUN 10 Creatinine 0.3 L Est GFR ( Amer) > 60 Est GFR (Non-Af Amer) > 60 POC Glucose (mg/dL) Random Glucose 121 H Lactic Acid 1.4 Calcium 7.3 L Phosphorus 2.0 L Magnesium 1.5 L Total Bilirubin 1.8 H AST 22 ALT 23 Alkaline Phosphatase 73 Total Protein 5.9 L Albumin 2.9 L Globulin 3.0 Albumin/Globulin Ratio 1.0 Stool Occult Blood Stool Leukocytes, Qual C. difficile Ag & Toxin Blood Type Antibody Screen 04/12/18 04/12/18 04/12/18 06:10 06:10 06:10 WBC RBC Hgb Hct MCV MCH MCHC RDW Plt Count MPV Neut % (Auto) Lymph % (Auto) [place] % (Auto) Eos % (Auto) Baso % (Auto) Neut # (Auto) Lymph # (Auto) [place] # (Auto) Eos # (Auto) Baso # (Auto) PT 16.8 H INR 1.5 APTT 28 Fibrinogen 240 Sodium Potassium Chloride Carbon Dioxide Anion Gap BUN Creatinine Est GFR ( Amer) Est GFR (Non-Af Amer) POC Glucose (mg/dL) 105 Random Glucose Lactic Acid 1.2 Calcium Phosphorus Magnesium Total Bilirubin AST ALT Alkaline Phosphatase Total Protein Albumin Globulin Albumin/Globulin Ratio Stool Occult Blood Stool Leukocytes, Qual C. difficile Ag & Toxin Blood Type Antibody Screen 04/12/18 04/12/18 04/12/18 08:00 08:08 11:08 WBC RBC Hgb Hct MCV MCH MCHC RDW Plt Count MPV Neut % (Auto) Lymph % (Auto) [place] % (Auto) Eos % (Auto) Baso % (Auto) Neut # (Auto) Lymph # (Auto) [place] # (Auto) Eos # (Auto) Baso # (Auto) PT INR APTT Fibrinogen Sodium Potassium Chloride Carbon Dioxide Anion Gap BUN Creatinine Est GFR ( Amer) Est GFR (Non-Af Amer) POC Glucose (mg/dL) 105 Random Glucose Lactic Acid Calcium Phosphorus Magnesium Total Bilirubin AST ALT Alkaline Phosphatase Total Protein Albumin Globulin Albumin/Globulin Ratio Stool Occult Blood Positive H Stool Leukocytes, Qual Negative C. difficile Ag & Toxin Negative Blood Type Antibody Screen Assessment & Plan (1) Pancytopenia Assessment and Plan: secondary to chemotherapy with severe neutropenia will start Granix growth factor support antibiotics and neutropenic precautions transfusion support PRN Status: Acute (2) Breast cancer Assessment and Plan: stage IV outpatient chemotherapy Thank you for this interesting consult. Status: Acute
--- NOTE | 2018-04-12 21:14 | CP.PCM.CON ---
History of Present Illness - History of Present Illness History of Present Illness: dictated Past Patient History - Infectious Disease Hx of Infectious Diseases: None - Past Medical History & Family History Past Medical History?: Yes - Past Social History Smoking Status: Never Smoked - CARDIAC Hx Atrial Fibrillation: No Hx Cardia Arrhythmia: No Hx Congestive Heart Failure: No Hx Hypercholesterolemia: No Hx Hypertension: Yes Hx Mitral Valve Prolapse: No Hx Pacemaker: No Hx Peripheral Edema: No - PULMONARY Hx Asthma: Yes (CHILDHOOD NO MEDS) Hx Bronchitis: No Hx Chronic Obstructive Pulmonary Disease (COPD): No Hx Emphysema: No Hx Pneumonia: Yes (Childhood) Hx Pulmonary Embolism: No Hx Sleep Apnea: No - NEUROLOGICAL Hx Neurological Disorder: No - HEENT Hx HEENT Problems: No Other/Comment: GLASSES - RENAL Hx Chronic Kidney Disease: No - ENDOCRINE/METABOLIC Hx Endocrine Disorders: No - HEMATOLOGICAL/ONCOLOGICAL Hx Cancer: Yes (breast 2018; mets to bone) Other/Comment: in chemotherapy every wednesday - INTEGUMENTARY Hx Dermatological Problems: No - MUSCULOSKELETAL/RHEUMATOLOGICAL Hx Fractures: Yes (TOE/ARM NO SURGERY) - GENITOURINARY/GYNECOLOGICAL Hx Genitourinary Disorders: Yes Other/Comment: right breast cancer - PSYCHIATRIC Hx Substance Use: No - SURGICAL HISTORY Hx Surgeries: Yes Hx Section: Yes (one) Other/Comment: breast removal s/p breast ca july 2014. - ANESTHESIA Hx Anesthesia: Yes Hx Anesthesia Reactions: No Hx Malignant Hyperthermia: No Meds Allergies/Adverse Reactions: Allergies Allergy/AdvReac Type Severity Reaction Status Date / Time No Known Allergies Allergy Verified 02/23/18 14:57 - Medications Medications: Current Medications Vancomycin/Sodium Chloride (Vancomycin 1 Gm/Ns 200 Ml) 1 gm in 200 mls @ 133.333 mls/hr IVPB Q12H SARAH; Protocol Stop: 04/17/18 01:56 Last Admin: 04/12/18 16:19 Dose: 133.333 mls/hr Cefepime HCl (Maxipime Iv 2 Gm Premix) 2 gm in 100 mls @ 100 mls/hr IVPB Q8H SARAH; Protocol Stop: 04/16/18 21:31 Last Admin: 04/12/18 14:23 Dose: 100 mls/hr Lactated Ringer's (Lactated Ringer's) 1,000 mls @ 100 mls/hr IV .Q10H SARAH Last Admin: 04/12/18 20:02 Dose: Not Given Metronidazole (Flagyl) 500 mg in 100 mls @ 100 mls/hr IVPB Q8H SARAH; Protocol Last Admin: 04/12/18 16:20 Dose: 100 mls/hr Fluconazole 100 mg/ (Miscellaneous) 50 mls @ 100 mls/hr IVPB DAILY SARAH; Protocol Last Admin: 04/12/18 17:31 Dose: 100 mls/hr Morphine Sulfate (Morphine) 2 mg IVP Q4 PRN PRN Reason: Pain, moderate (4-7) Last Admin: 04/12/18 17:40 Dose: 2 mg Nystatin (Nystatin Oral Susp) 5 ml PO QID SARAH Pantoprazole Sodium (Protonix Inj) 40 mg IVP Q12H SARAH Last Admin: 04/12/18 08:49 Dose: 40 mg Saliva Substitute (First Magic Mouthwash) 10 ml PO Q6 SARAH Results - Vital Signs Recent Vital Signs: Last Vital Signs Temp 98.3 F 04/12/18 16:00 Pulse 101 H 04/12/18 20:00 Resp 20 04/12/18 20:00 BP 105/65 04/12/18 19:10 Pulse Ox 98 04/12/18 20:00 - Labs Result Diagrams: 04/12/18 06:10 04/12/18 06:10 Labs: Laboratory Results - last 24 hr 04/11/18 04/11/18 04/11/18 17:57 17:57 23:08 WBC RBC Hgb Hct MCV MCH MCHC RDW Plt Count MPV Neut % (Auto) Lymph % (Auto) [place] % (Auto) Eos % (Auto) Baso % (Auto) Neut # (Auto) Lymph # (Auto) [place] # (Auto) Eos # (Auto) Baso # (Auto) PT INR APTT Fibrinogen Sodium Potassium Chloride Carbon Dioxide Anion Gap BUN Creatinine Est GFR ( Amer) Est GFR (Non-Af Amer) POC Glucose (mg/dL) 157 H Random Glucose Lactic Acid Calcium Phosphorus 1.9 L Magnesium 1.2 L Total Bilirubin AST ALT Alkaline Phosphatase Total Protein Albumin Globulin Albumin/Globulin Ratio Stool Occult Blood Stool Leukocytes, Qual C. difficile Ag & Toxin Blood Type O POSITIVE Antibody Screen Negative 04/11/18 04/12/18 04/12/18 23:11 06:10 06:10 WBC 1.2 L* D RBC 3.06 L Hgb 8.4 L Hct 25.3 L MCV 82.6 MCH 27.4 MCHC 33.2 RDW 17.9 H Plt Count 22 L* D MPV 7.4 Neut % (Auto) 84.3 H Lymph % (Auto) 13.1 L [place] % (Auto) 2.3 Eos % (Auto) 0.2 Baso % (Auto) 0.1 Neut # (Auto) 1.0 L Lymph # (Auto) 0.2 L [place] # (Auto) 0.0 Eos # (Auto) 0.0 Baso # (Auto) 0.0 PT INR APTT Fibrinogen Sodium 136 Potassium 2.7 L Chloride 101 Carbon Dioxide 28 Anion Gap 11 BUN 10 Creatinine 0.3 L Est GFR ( Amer) > 60 Est GFR (Non-Af Amer) > 60 POC Glucose (mg/dL) Random Glucose 121 H Lactic Acid 1.4 Calcium 7.3 L Phosphorus 2.0 L Magnesium 1.5 L Total Bilirubin 1.8 H AST 22 ALT 23 Alkaline Phosphatase 73 Total Protein 5.9 L Albumin 2.9 L Globulin 3.0 Albumin/Globulin Ratio 1.0 Stool Occult Blood Stool Leukocytes, Qual C. difficile Ag & Toxin Blood Type Antibody Screen 04/12/18 04/12/18 04/12/18 06:10 06:10 06:10 WBC RBC Hgb Hct MCV MCH MCHC RDW Plt Count MPV Neut % (Auto) Lymph % (Auto) [place] % (Auto) Eos % (Auto) Baso % (Auto) Neut # (Auto) Lymph # (Auto) [place] # (Auto) Eos # (Auto) Baso # (Auto) PT 16.8 H INR 1.5 APTT 28 Fibrinogen 240 Sodium Potassium Chloride Carbon Dioxide Anion Gap BUN Creatinine Est GFR ( Amer) Est GFR (Non-Af Amer) POC Glucose (mg/dL) 105 Random Glucose Lactic Acid 1.2 Calcium Phosphorus Magnesium Total Bilirubin AST ALT Alkaline Phosphatase Total Protein Albumin Globulin Albumin/Globulin Ratio Stool Occult Blood Stool Leukocytes, Qual C. difficile Ag & Toxin Blood Type Antibody Screen 04/12/18 04/12/18 04/12/18 08:00 08:08 11:08 WBC RBC Hgb Hct MCV MCH MCHC RDW Plt Count MPV Neut % (Auto) Lymph % (Auto) [place] % (Auto) Eos % (Auto) Baso % (Auto) Neut # (Auto) Lymph # (Auto) [place] # (Auto) Eos # (Auto) Baso # (Auto) PT INR APTT Fibrinogen Sodium Potassium Chloride Carbon Dioxide Anion Gap BUN Creatinine Est GFR ( Amer) Est GFR (Non-Af Amer) POC Glucose (mg/dL) 105 Random Glucose Lactic Acid Calcium Phosphorus Magnesium Total Bilirubin AST ALT Alkaline Phosphatase Total Protein Albumin Globulin Albumin/Globulin Ratio Stool Occult Blood Positive H Stool Leukocytes, Qual Negative C. difficile Ag & Toxin Negative Blood Type Antibody Screen
[2018-04-12] MEDS: Mag&Al/Simet/Diphen/Lido 237 ML KIT PO SCH ×3 (22:02→23:33)
[2018-04-12] MEDS: Nystatin 100,000 Units/ml Oral Susp 5 ml UD PO SCH (23:29)
[2018-04-13] MEDS: Vancomycin 1 gm/NS 200 ml 1 GM/200 ML BAG IVPB SCH ×2 (02:55→14:35)
[2018-04-13] MEDS: Lactated Ringer's 1,000 ML IV SCH ×2 (03:23→13:30)
[2018-04-13 05:29] LABS: BASO % 0.1 % (0.0-2.0); EOS % 0.3 % (0.0-4.0); HEMOGLOBIN 7.9 g/dL (11.0-16.0); LYMPH # 0.2 K/uL (1.0-4.3); LYMPH % 12.5 % (20.0-40.0); MEAN CELL VOLUME 82.7 fL (81.0-99.0); MEAN CORPUSCULAR HEMOGLOBIN 27.1 pg (27.0-31.0); MEAN CORPUSCULAR HGB CONC 32.8 g/dL (33.0-37.0); MEAN PLATELET VOLUME 6.7 fL (7.2-11.7); MONO # 0.1 K/uL (0.0-0.8); NEUT # 1.6 K/uL (1.8-7.0); NEUT % 82.1 % (50.0-75.0); NRBC % 0.1 % (0.0-2.0); RBC 2.92 Mil/uL (3.80-5.20); RED CELL DISTRIBUTION WIDTH 18.2 % (11.5-14.5)
[2018-04-13] MEDS: Cefepime IV 2 gm in Dextrose 2 GM/100 ML BAG IVPB SCH (05:32)
[2018-04-13 05:43] LABS: WHITE BLOOD COUNT 1.9 K/uL (4.8-10.8)
[2018-04-13 05:55] LABS: ALB/GLOB RATIO 0.9 (1.0-2.1); ALBUMIN 2.7 g/dL (3.5-5.0); ALT/SGPT 22 U/L (9-52); AST/SGOT 17 U/L (14-36); BLOOD UREA NITROGEN 8 mg/dL (7-17); GFR NON-AFRICAN AMERICAN > 60
[2018-04-13] MEDS: Mag&Al/Simet/Diphen/Lido 237 ML KIT PO SCH ×3 (06:33→17:05)
[2018-04-13] MEDS ORDERED: Magnesium Sulfate 1 gm in D5W 1 GM/100 ML BAG IVPB ONE (07:31)
[2018-04-13] MEDS ORDERED: Potassium Phosphate 30 MMOLE in Sodium Chloride 0.9% 250 ML IVPB ONE (07:32)
--- NOTE | 2018-04-13 07:50 | CP.PCM.PN ---
<Perfecto Moser - Last Filed: 04/13/18 07:45> Subjective - Date & Time of Evaluation Date of Evaluation: 04/13/18 Time of Evaluation: 07:10 - Subjective Subjective: General Surgery Pt seen and examined. No new complaints. Pain the same overall, worse with movements. Objective - Vital Signs/Intake and Output Vital Signs (last 24 hours): Temp Pulse Resp BP Pulse Ox 98.8 F 97 H 19 110/57 L 99 04/13/18 04:00 04/13/18 07:03 04/13/18 07:03 04/13/18 07:03 04/13/18 07:03 Intake and Output: 04/13/18 04/13/18 06:59 18:59 Intake Total 1708 100 Output Total 600 Balance 1108 100 - Medications Medications: Current Medications Vancomycin/Sodium Chloride (Vancomycin 1 Gm/Ns 200 Ml) 1 gm in 200 mls @ 133.333 mls/hr IVPB Q12H SARAH; Protocol Stop: 04/17/18 01:56 Last Admin: 04/13/18 02:55 Dose: 133.333 mls/hr Cefepime HCl (Maxipime Iv 2 Gm Premix) 2 gm in 100 mls @ 100 mls/hr IVPB Q8H SARAH; Protocol Stop: 04/16/18 21:31 Last Admin: 04/13/18 05:32 Dose: 100 mls/hr Lactated Ringer's (Lactated Ringer's) 1,000 mls @ 100 mls/hr IV .Q10H SARAH Last Admin: 04/13/18 03:23 Dose: 100 mls/hr Metronidazole (Flagyl) 500 mg in 100 mls @ 100 mls/hr IVPB Q8H SARAH; Protocol Last Admin: 04/12/18 23:28 Dose: 100 mls/hr Fluconazole 100 mg/ (Miscellaneous) 50 mls @ 100 mls/hr IVPB DAILY SARAH; Protocol Last Admin: 04/12/18 17:31 Dose: 100 mls/hr Gentamicin Sulfate 80 mg/ (Sodium Chloride) 102 mls @ 100 mls/hr IVPB Q8H SARAH; Protocol Last Admin: 04/13/18 06:32 Dose: 100 mls/hr Magnesium Sulfate/Dextrose (Magnesium Sulfate 1 Gm/100 Ml D5w) 1 gm in 100 mls @ 200 mls/hr IVPB ONCE ONE Stop: 04/13/18 08:00 Potassium Phosphate 30 mmole/ (Sodium Chloride) 260 mls @ 42.5 mls/hr IVPB ONCE ONE Stop: 04/13/18 13:39 Morphine Sulfate (Morphine) 2 mg IVP Q4 PRN PRN Reason: Pain, moderate (4-7) Last Admin: 04/12/18 22:45 Dose: 2 mg Nystatin (Nystatin Oral Susp) 5 ml PO QID [facility] Last Admin: 04/12/18 23:29 Dose: 5 ml Pantoprazole Sodium (Protonix Inj) 40 mg IVP Q12H [facility] Last Admin: 04/12/18 20:30 Dose: 40 mg Saliva Substitute (First Magic Mouthwash) 10 ml PO Q6 [facility] Last Admin: 04/13/18 06:33 Dose: Not Given - Labs Labs: 04/13/18 05:20 04/13/18 05:20 PT 16.8 SECONDS (9.7-12.2) H 04/12/18 06:10 INR 1.5 04/12/18 06:10 APTT 28 SECONDS (21-34) 04/12/18 06:10 - Constitutional Appears: No Acute Distress, Chronically Ill - Head Exam Head Exam: ATRAUMATIC, NORMOCEPHALIC - Eye Exam Eye Exam: EOMI. absent: Scleral icterus - Respiratory Exam Respiratory Exam: NORMAL BREATHING PATTERN. absent: Respiratory Distress - GI/Abdominal Exam GI & Abdominal Exam: Soft, Tenderness. absent: Distended, Firm, Guarding, Rigid - Neurological Exam Neurological Exam: Alert, Awake, Oriented x3 - Skin Skin Exam: Dry, Warm Assessment and Plan - Assessment and Plan (Free Text) Assessment: 58F with pancytopenia and abdominal pain, bloody bowel movements r/o pancolitis Plan: If clinically worsening will repeat CT 04/14/18 IVF IV Abx and antifungal Transfuse PRN D/W Dr. Renee Moser PGY4 <Wilber Duran - Last Filed: 04/22/18 20:49> Objective - Vital Signs/Intake and Output Vital Signs (last 24 hours): Temp Pulse Resp BP Pulse Ox 98.1 F 105 H 20 103/62 98 04/22/18 15:15 04/22/18 15:15 04/22/18 15:15 04/22/18 15:15 04/22/18 15:15 Intake and Output: 04/22/18 04/23/18 18:59 06:59 Intake Total 780 Output Total 1000 Balance -220 - Medications Medications: Current Medications Calcium Carbonate (Oscal) 500 mg PO DAILY [facility] Last Admin: 04/22/18 10:44 Dose: 500 mg Piperacillin Sod/Tazobactam (Sod 3.375 gm/ Sodium Chloride) 100 mls @ 200 mls/hr IVPB Q8H [facility]; Protocol Last Admin: 04/22/18 19:04 Dose: 200 mls/hr Fluconazole (Diflucan Iv 200 Mg/100 Ml Ns) 100 mls @ 100 mls/hr IVPB Q24H SARAH; Protocol Last Admin: 04/22/18 10:45 Dose: 100 mls/hr Potassium Chloride/Dextrose/Sod Cl (Potassium Chl 20 Meq In D5-1/2ns) 1,000 mls @ 50 mls/hr IV .Q20H [facility] Last Admin: 04/22/18 10:54 Dose: Not Given Midodrine (Proamatine) 5 mg PO TID [facility] Last Admin: 04/22/18 18:01 Dose: 5 mg Morphine Sulfate (Morphine) 2 mg IV Q2H PRN PRN Reason: Pain, moderate (4-7) Last Admin: 04/22/18 12:21 Dose: 2 mg Pantoprazole Sodium (Protonix Inj) 40 mg IVP Q12H [facility] Last Admin: 04/22/18 08:55 Dose: 40 mg Saliva Substitute (First Magic Mouthwash) 10 ml PO Q6 SARAH Last Admin: 04/22/18 18:07 Dose: Not Given - Labs Labs: 04/22/18 07:16 04/21/18 07:23 PT 16.8 SECONDS (9.7-12.2) H 04/12/18 06:10 INR 1.5 04/12/18 06:10 APTT 28 SECONDS (21-34) 04/12/18 06:10 Attending/Attestation - Attestation I have personally seen and examined this patient.: Yes I have fully participated in the care of the patient.: Yes I have reviewed all pertinent clinical information, including history, physical exam and plan: Yes Notes (Text): Pt was seen and examined at bedside Agree with above note and assessment Pt is improving clinically Less diarrhea IV antibiotics c.w current mx Plan d.w pt in detail
[2018-04-13] MEDS: metroNIDAZOLE IV 500 mg/100 ml 500 MG/100 ML BAG IVPB SCH (08:07)
--- NOTE | 2018-04-13 08:20 | CON ---
DATE: 04/12/2018 INFECTIOUS DISEASE CONSULT REQUESTED BY: Shelley Mitchell MD HISTORY OF PRESENT ILLNESS: This patient is a 58-year-old female. She has history of breast cancer, metastasis, came in with abdominal pain which has been getting worse for the last one week. The patient has been receiving radiation therapy. She also has sacral decubitus which we evaluated right now. She is also receiving chemotherapy. She has a left chest wall Port-A-Cath, and the patient was having vomiting also and has been having abdominal pain. She did not have any diarrhea, but abdominal pain and vomiting, and the patient called her GI and was suggested to come here, and she also had significant rectal bleeding associated with abdominal pain, so she is here, and I am asked to evaluate because of pancytopenia, and her CAT scan showed pancolitis. She is also very dry, dehydrated. The patient was awake, alert when I went there, but she was too weak to tell the story and appears frail. PAST MEDICAL HISTORY: Significant for breast cancer with metastasis. She has had bilateral mastectomies done, bronchial asthma, history of fractures, hypertension. She has history of pneumonia, history of chronic disease. SURGICAL HISTORY: Lumpectomy, and she has had radiation treatment. ALLERGIES: SHE IS NOT ALLERGIC TO ANY MEDICINE. SOCIAL HISTORY: Negative for smoking or drinking. No alcohol. Her family members were at the bedside. She did come in with abdominal pain, has been having rectal bleeding and vomiting, and has had radiation. MEDICATIONS: She was started on vancomycin and Zosyn, I change it to cefepime, and she is on fluconazole at this time and metronidazole 500 every 8 hours and also on vancomycin 1 g every 12 hours. We are covering with multiple antibiotics at this time. REVIEW OF SYSTEMS: She denied any headache. No ear, nose, or throat problems. No chest pain. No shortness of breath. She does have abdominal pain, she was found pointing to right side and has been having blood in the stools, and vomiting. She never smoked. 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 She also has history of asthma in childhood. No COPD. Pneumonia when she was a kid, and she uses glasses. No kidney issues. No endocrine problems reported. She had breast cancer diagnosed in 2018 with mets to bone and chemotherapy every Wednesday. She was getting no skin issues, but she has open wounds on her back which we evaluated. She also has fracture of the toe and arm and had no surgery. disorders, no etiology. She has no psych issues, and she had surgery. SHE IS NOT ALLERGIC TO ANY MEDICINE. The medications, I already went through. PHYSICAL EXAMINATION: VITAL SIGNS: She did come in with a fever that I know, but right now, she was afebrile, and her temperature was 98.3, heart rate of 100, blood pressure 126/60, respirations are 22, and she had oxygen on. HEENT: Had some alopecia. Head is atraumatic, normocephalic. Pupils are reacting to light. Tongue was moist. She has been getting fluids. NECK: Supple. JVP is flat. HEART: S1, S2 are regular. CHEST: Bilateral mastectomy scar present. No wheezing. No rhonchi present at this time. ABDOMEN: Distended with no guarding, no rigidity, but vague tenderness, generalized. EXTREMITIES: Had no edema. SACRUM: Sacral area had a big ulcer which is undermining, almost 6.6 cm, and there were multiple other small ulcerations which are peripheral, and one ulceration on her right leg which was present. They all appeared to be pressure decubitus. LABORATORY DATA: Labs show white count is 1.2, hemoglobin 8.4, hematocrit 25.3, platelet count is 22. She is pancytopenic at this time, and ABG was noted. Her lactate level was 2.5 yesterday, needs to be repeated again. We will do blood lactate level tomorrow as it is almost 10 o'clock now. Potassium is 2.7, is being supplemented I hope. Urine showed 2+ blood, ketones were trace, and she had occult blood positive. C. difficile is negative. Influenza is negative, and occult blood is positive. Chest x-ray showed nonspecific right middle lobe haziness, left IJ MediPort is unchanged, prominent mediastinum consistent with tortuous vasculature, alternative including adenopathy, cannot be excluded, known metastatic lesion seen, and better advantage by CT. So she does have a history of metastatic disease, and the abdominal CT showed 8-mm right lower lobe pulmonary nodule. Recommended further evaluation with PET scan, right middle lobe consolidation, likely atelectasis, diffuse colonic wall thickening raising concern of pancolitis, infectious versus inflammatory, large amount of fluid noted within the rectosigmoid consistent with disease, and she has 3 x 2.2 x 7.2 low density within the left punctate, associated focus is noted, correlate clinically. Possibility of an abscess, so she may have a abscess, alternatively including hematoma is not excluded and sclerotic sacrum L3 vertebra and correlate clinically with bone scan if indicated. So she may have bone metastasis, I would suspect, and she has an abscess in the muscle which needs to be followed up at this time. The septic workup was done. The wound has Staphylococcus aureus, and blood culture came out Gram-negative rods. She has gram-negative septicemia at this time, and she also has a Port-A-Cath. She is on Maxipime, and her creatinine is 0.3, so I am going to add gentamicin at this time. Her weight is 216 pounds, that means she is , so we will give her gentamicin of 300 right now or we can give with gentamicin 80 every 8 hours, and we will follow. Also, we will need an echocardiogram and she remains pancytopenic with breast cancer and has septicemia with Gram-negative rods. We will get a lactate level tomorrow. She is bleeding. She is getting fresh frozen plasmas and may need further monitoring of the hemoglobin and hematocrit. Jacqueline Saez MD
[2018-04-13] MEDS: Fluconazole IV 200mg/100 ml NS 100 MG in Premixed IV 1 EA IVPB SCH (10:05)
[2018-04-13] MEDS: Nystatin 100,000 Units/ml Oral Susp 5 ml UD PO SCH ×5 (10:07→22:11)
--- NOTE | 2018-04-13 10:42 | CP.CCUPN ---
<Eleni Bran - Last Filed: 04/13/18 10:32> CCU Subjective - Physician Review Subjective (Free Text): 04/12/18 11:17 ICU Progress Note for Dr. Tsai This morning patient still c/o lower abdominal pain. Patient also endorses bowel incontinence. Per RN has had a few bloody diarrhea BMs overnight. Patient started clear liquid diet evening of 04/12. Endorses pain in tongue when eating. Thrush treatment nystatin swish started after she attempted to eat. Other than Dr. Gibson's visit, denies any other changes from yesterday. 04/13/18 10:42 04/13/18 10:46 CCU Objective - Vital Signs / Intake & Output Vital Signs (Last 4 hours): Vital Signs Temp Pulse Resp BP Pulse Ox 04/13/18 08:03 95 H 20 134/78 99 04/13/18 08:00 97.8 F 96 H 19 100 04/13/18 07:03 97 H 19 110/57 L 99 04/13/18 07:00 97 H 19 100 Intake and Output (Last 8hrs): Intake & Output 04/12/18 04/13/18 04/13/18 22:59 06:59 14:59 Intake Total 1300 1108 300 Output Total 650 300 Balance 650 808 300 Weight 216 lb 7.903 oz Intake: Intake, IV Amount 1100 900 300 Left Antecubital 300 Left Port-A-Cath 800 900 200 Left PortaCath side port 100 Oral 0 Blood Product 200 208 Apheresis Plts Acda Lr 0 208 Irr 2nd Unit [id number] Output: Urine 650 300 Urine, Voided 650 300 Other: # Voids Urine, Voided 0 # Bowel Movements 1 1 1 - Physical Exam Head: Positive for: Atraumatic, Normocephalic Nose (External): Positive for: Atraumatic Neck: Negative for: Lymphadenopathy Respiratory/Chest: Positive for: Clear to Auscultation (patient got agitated when attempting to lean her forward, so only listened to lung clements anteriorly). Negative for: Respiratory Distress, Accessory Muscle Use Cardiovascular: Positive for: Regular Rate and Rhythm (mild tachycardia), Murmurs (soft holosystolic murmur throughout all listening posts) Abdomen: Positive for: Tenderness. Negative for: Normal Bowel Sounds (hypoactive bowel sounds), Peritoneal Signs, Rebound Rectal: Positive for: Other (deferred) Upper Extremity: Positive for: Edema (nonpitting edema), NORMAL PULSES, Other (hands cool to touch. 1/5 UE strength.). Negative for: Normal Inspection Lower Extremity: Positive for: Edema (nonpitting), CALF TENDERNESS, Other (feet cool to touch. Patient unable to lift legs off the bed.). Negative for: Normal Inspection Psychiatric: Positive for: Alert, Depressed Mood (patient tearful at times of exam) - Medications Active Medications: Active Medications Generic Name Dose Route Start Last Admin Trade Name Freq PRN Reason Stop Dose Admin Vancomycin/Sodium Chloride 1 gm in 200 mls @ 133.333 mls/hr 04/12/18 01:55 04/13/18 02:55 Vancomycin 1 Gm/Ns 200 Ml IVPB 04/17/18 01:56 133.333 mls/hr Q12H SARAH Administration Protocol Cefepime HCl 2 gm in 100 mls @ 100 mls/hr 04/11/18 21:30 04/13/18 05:32 Maxipime Iv 2 Gm Premix IVPB 04/16/18 21:31 100 mls/hr Q8H SARAH Administration Protocol Lactated Ringer's 1,000 mls @ 100 mls/hr 04/11/18 21:00 04/13/18 03:23 Lactated Ringer's IV 100 mls/hr .Q10H SARAH Administration Fluconazole 100 mg/ 50 mls @ 100 mls/hr 04/12/18 16:00 04/13/18 10:05 Miscellaneous IVPB 100 mls/hr DAILY SARAH Administration Protocol Gentamicin Sulfate 80 mg/ 102 mls @ 100 mls/hr 04/12/18 22:15 04/13/18 06:32 Sodium Chloride IVPB 100 mls/hr Q8H SARAH Administration Protocol Potassium Phosphate 30 mmole/ 260 mls @ 42.5 mls/hr 04/13/18 07:32 04/13/18 07:25 Sodium Chloride IVPB 04/13/18 13:39 42.5 mls/hr ONCE ONE Administration Potassium Chloride 20 meq in 100 mls @ 50 mls/hr 04/13/18 10:00 04/13/18 10:16 Potassium Chloride 20 Meq/100 Ml IVPB 04/13/18 12:59 50 mls/hr Q1H SARAH Administration Morphine Sulfate 2 mg 04/11/18 22:22 04/12/18 22:45 Morphine IVP 2 mg Q4 PRN Administration Pain, moderate (4-7) Nystatin 5 ml 04/12/18 22:00 04/13/18 10:10 Nystatin Oral Susp PO Not Given QID [facility] Pantoprazole Sodium 40 mg 04/11/18 20:30 04/13/18 08:07 Protonix Inj IVP 40 mg Q12H SAARH Administration Saliva Substitute 10 ml 04/12/18 00:00 04/13/18 06:33 First Magic Mouthwash PO Not Given Q6 [facility] - Patient Studies Lab Studies: Microbiology Studies 04/11/18 20:01 Gram Stain - Final Buttock Wound Culture - Final Staphylococcus Aureus 04/11/18 12:32 Blood Culture - Preliminary Blood Gram Negative Jerry Gram Stain - Final 04/12/18 08:00 Ova and Parasite Concentrate Exam - Final Stool 04/11/18 11:00 Blood Culture - Preliminary Blood NO GROWTH AFTER 24 HOURS Lab Studies 04/13/18 04/13/18 04/13/18 Range/Units 05:20 05:20 05:20 WBC 1.9 L* D (4.8-10.8) K/uL RBC 2.92 L (3.80-5.20) Mil/uL Hgb 7.9 L (11.0-16.0) g/dL Hct 24.1 L (34.0-47.0) % MCV 82.7 (81.0-99.0) fL MCH 27.1 (27.0-31.0) pg MCHC 32.8 L (33.0-37.0) g/dL RDW 18.2 H (11.5-14.5) % Plt Count 20 L* (130-400) K/uL MPV 6.7 L (7.2-11.7) fL Neut % (Auto) 82.1 H (50.0-75.0) % Lymph % (Auto) 12.5 L (20.0-40.0) % [place] % (Auto) 5.0 (0.0-10.0) % Eos % (Auto) 0.3 (0.0-4.0) % Baso % (Auto) 0.1 (0.0-2.0) % Neut # (Auto) 1.6 L (1.8-7.0) K/uL Lymph # (Auto) 0.2 L (1.0-4.3) K/uL [place] # (Auto) 0.1 (0.0-0.8) K/uL Eos # (Auto) 0.0 (0.0-0.7) K/uL Baso # (Auto) 0.0 (0.0-0.2) K/uL Sodium 139 (132-148) mmol/L Potassium 2.7 L (3.6-5.2) mmol/L Chloride 104 (98-107) mmol/L Carbon Dioxide 27 (22-30) mmol/L Anion Gap 11 (10-20) BUN 8 (7-17) mg/dL Creatinine 0.3 L (0.7-1.2) mg/dL Est GFR ( Amer) > 60 Est GFR (Non-Af Amer) > 60 POC Glucose (mg/dL) (65-110) mg/dL Random Glucose 76 D (65-105) mg/dL Lactic Acid 1.0 (0.7-2.1) mmol/L Calcium 7.0 L (8.6-10.4) mg/dl Phosphorus 2.5 (2.5-4.5) mg/dL Magnesium 1.4 L (1.6-2.3) mg/dL Total Bilirubin 0.8 (0.2-1.3) mg/dL AST 17 (14-36) U/L ALT 22 (9-52) U/L Alkaline Phosphatase 70 (38-126) U/L Total Protein 5.7 L (6.3-8.3) g/dL Albumin 2.7 L (3.5-5.0) g/dL Globulin 3.0 (2.2-3.9) gm/dL Albumin/Globulin Ratio 0.9 L (1.0-2.1) Stool Leukocytes, Qual (NEGATIVE) C. difficile Ag & Toxin (NEGATIVE) 04/12/18 04/12/18 Range/Units 11:08 08:00 WBC (4.8-10.8) K/uL RBC (3.80-5.20) Mil/uL Hgb (11.0-16.0) g/dL Hct (34.0-47.0) % MCV (81.0-99.0) fL MCH (27.0-31.0) pg MCHC (33.0-37.0) g/dL RDW (11.5-14.5) % Plt Count (130-400) K/uL MPV (7.2-11.7) fL Neut % (Auto) (50.0-75.0) % Lymph % (Auto) (20.0-40.0) % [place] % (Auto) (0.0-10.0) % Eos % (Auto) (0.0-4.0) % Baso % (Auto) (0.0-2.0) % Neut # (Auto) (1.8-7.0) K/uL Lymph # (Auto) (1.0-4.3) K/uL [place] # (Auto) (0.0-0.8) K/uL Eos # (Auto) (0.0-0.7) K/uL Baso # (Auto) (0.0-0.2) K/uL Sodium (132-148) mmol/L Potassium (3.6-5.2) mmol/L Chloride (98-107) mmol/L Carbon Dioxide (22-30) mmol/L Anion Gap (10-20) BUN (7-17) mg/dL Creatinine (0.7-1.2) mg/dL Est GFR ( Amer) Est GFR (Non-Af Amer) POC Glucose (mg/dL) 105 (65-110) mg/dL Random Glucose (65-105) mg/dL Lactic Acid (0.7-2.1) mmol/L Calcium (8.6-10.4) mg/dl Phosphorus (2.5-4.5) mg/dL Magnesium (1.6-2.3) mg/dL Total Bilirubin (0.2-1.3) mg/dL AST (14-36) U/L ALT (9-52) U/L Alkaline Phosphatase (38-126) U/L Total Protein (6.3-8.3) g/dL Albumin (3.5-5.0) g/dL Globulin (2.2-3.9) gm/dL Albumin/Globulin Ratio (1.0-2.1) Stool Leukocytes, Qual Negative (NEGATIVE) C. difficile Ag & Toxin Negative (NEGATIVE) Laboratory Results - last 24 hr 04/12/18 04/12/18 04/13/18 08:00 11:08 05:20 WBC 1.9 L* D RBC 2.92 L Hgb 7.9 L Hct 24.1 L MCV 82.7 MCH 27.1 MCHC 32.8 L RDW 18.2 H Plt Count 20 L* MPV 6.7 L Neut % (Auto) 82.1 H Lymph % (Auto) 12.5 L [place] % (Auto) 5.0 Eos % (Auto) 0.3 Baso % (Auto) 0.1 Neut # (Auto) 1.6 L Lymph # (Auto) 0.2 L [place] # (Auto) 0.1 Eos # (Auto) 0.0 Baso # (Auto) 0.0 Sodium Potassium Chloride Carbon Dioxide Anion Gap BUN Creatinine Est GFR ( Amer) Est GFR (Non-Af Amer) POC Glucose (mg/dL) 105 Random Glucose Lactic Acid Calcium Phosphorus Magnesium Total Bilirubin AST ALT Alkaline Phosphatase Total Protein Albumin Globulin Albumin/Globulin Ratio Stool Leukocytes, Qual Negative C. difficile Ag & Toxin Negative 04/13/18 04/13/18 05:20 05:20 WBC RBC Hgb Hct MCV MCH MCHC RDW Plt Count MPV Neut % (Auto) Lymph % (Auto) [place] % (Auto) Eos % (Auto) Baso % (Auto) Neut # (Auto) Lymph # (Auto) [place] # (Auto) Eos # (Auto) Baso # (Auto) Sodium 139 Potassium 2.7 L Chloride 104 Carbon Dioxide 27 Anion Gap 11 BUN 8 Creatinine 0.3 L Est GFR ( Amer) > 60 Est GFR (Non-Af Amer) > 60 POC Glucose (mg/dL) Random Glucose 76 D Lactic Acid 1.0 Calcium 7.0 L Phosphorus 2.5 Magnesium 1.4 L Total Bilirubin 0.8 AST 17 ALT 22 Alkaline Phosphatase 70 Total Protein 5.7 L Albumin 2.7 L Globulin 3.0 Albumin/Globulin Ratio 0.9 L Stool Leukocytes, Qual C. difficile Ag & Toxin Critical Care Progress Note - Nutrition Nutrition: Nutrition Category Date Time Status NPO Diet [DIET] Diets 04/13/18 Breakfast Active Assessment/Plan - Assessment and Plan (Free Text) Assessment: 58 y/o female with metastatic breast cancer to the lungs, brain and bones on chemo, asthma, and HTN, presented to the ED 04/11 with abdominal pain x 4 days and GI bleed. Patient also found to have severe leukopenia and thrombocytopenia. Patient currently in the ICU. neuro -patient alert and awake -no acute issues CV -patient borderline tachycardia averaging 100 on tele monitor, continue to monitor -no acute issues Pulm -per hx, patient w/ CA mets to the lungs -PMHx asthma, no complaints -patient on RA and denies SOB -monitor, goal SpO2 > 92% GI -CTAP 04/11: thickened rectosigmoid colon consistent with pancolitis -per gen surg consult, repeat CTAP 04/14 if worsening clinically -Patient w/ bloody, diarrhea BMs per RN and per pt, incontinent of stool. ddx per GI: ischemic colitis vs. neutropenic colitis. Patient currently unstable for colonoscopy at this time. -GI Dr. Starr consulted, appreciate recs -currently NPO for EGD 04/13 Renal -hypokalemia and hypomg -> repleted this morning 04/13 -CMP qAM and replete as needed -patient currently on LR 100 mg/h since admission, will consider d/c depending on PO intake progression ID -patient afebrile, but severe leukopenia WBC 1.2 on 04/12, 1.9 on 04/13 -neutropenic precautions -cefepime 2g q8h started 04/11 -flagyl 500 mg q8h started 04/12, d/rodriguez 04/13 due to negative c. dif -vanco 1g q12h started 04/12 -Dr. Saez ID on the case. Appreciate recs. Heme-onc -leukopenia 1.2 -> 1.9, thrombocytopenia 22 -> 20 despite transfusion overnight -s/p 2U PRBC and 2 FFP overnight on admission -morphine 2 mg q4h PRN -CBC qAM -Dr. Gibson, pt's routine outpatient physician for her chemo, is on the case. Appreciate recs. -Hospice consult d/rodriguez after palliative care meeting (see 04/12 notes by palliative care). Derm -pt w/ deep sacral ulcers, pink tissue, no black eschar viewed evening after admission. Per patient she gets medihoney at home. Family cleans her. -turn patient q2h -see Jose Quintana RNmedicare specialist recs under "notes" section [facility] -s/p fall around Thanksgiving. Been bedbound ever since. -Left psoas abscess/density on CTAP 04/12. Per surgery, patient not a good surgical candidate due to underlying conditions. Aspiration not possible per IR Dr. Balbuena. -unable to lift LE against gravity -PT/OT DVT ppx: contraindicated due to GI bleed GI ppx: not indicated at this time case discussed with Dr. Eulalio Bran PGY1 <Onesimo Tsai - Last Filed: 04/13/18 16:40> CCU Subjective - Physician Review Critical Care Time Spent (in minutes): 35 CCU Objective - Vital Signs / Intake & Output Vital Signs (Last 4 hours): Vital Signs Temp Pulse Resp BP Pulse Ox 04/13/18 15:37 99 H 20 113/69 04/13/18 15:31 104 H 26 H 114/72 04/13/18 15:30 98.2 F 101 H 21 114/72 04/13/18 15:07 99 H 20 96/64 L 99 04/13/18 15:00 99 H 20 99 04/13/18 14:52 95 H 20 110/60 04/13/18 14:37 98.0 F 96 H 21 112/63 04/13/18 14:22 102 H 16 119/82 100 04/13/18 14:07 98.0 F 101 H 18 108/57 L 75 L 04/13/18 14:00 99 H 17 94 L 04/13/18 13:52 98.2 F 103 H 24 110/64 95 04/13/18 13:37 98.1 F 101 H 20 105/69 100 04/13/18 13:03 102 H 21 114/75 100 04/13/18 13:00 101 H 19 91 L 04/13/18 12:43 102 H 22 111/66 100 Intake and Output (Last 8hrs): Intake & Output 04/13/18 04/13/18 04/13/18 06:59 14:59 22:59 Intake Total 1108 1625.0 598 Output Total 300 400 Balance 808 1225.0 598 Weight 216 lb 7.903 oz Intake: Intake, IV Amount 900 1405.0 250 Left Port-A-Cath 900 800 200 Left PortaCath side port 605.0 50 Oral 220 0 Blood Product 208 0 298 Apheresis Plts Acda Lr 0 298 Irr Unit [id number] Apheresis Plts Acda Lr 208 Irr 2nd Unit [id number] Other 50 Apheresis Plts Acda Lr 50 Irr Unit [id number] Output: Urine 300 400 Urine, Voided 300 400 Other: # Voids Urine, Voided 0 0 # Bowel Movements 1 1 0 - Medications Active Medications: Active Medications Generic Name Dose Route Start Last Admin Trade Name Freq PRN Reason Stop Dose Admin Vancomycin/Sodium Chloride 1 gm in 200 mls @ 133.333 mls/hr 04/12/18 01:55 04/13/18 14:35 Vancomycin 1 Gm/Ns 200 Ml IVPB 04/17/18 01:56 133.333 mls/hr Q12H SARAH Administration Protocol Lactated Ringer's 1,000 mls @ 100 mls/hr 04/11/18 21:00 04/13/18 13:30 Lactated Ringer's IV Not Given .Q10H SARAH Fluconazole 100 mg/ 50 mls @ 100 mls/hr 04/12/18 16:00 04/13/18 10:05 Miscellaneous IVPB 100 mls/hr DAILY SARAH Administration Protocol Gentamicin Sulfate 80 mg/ 102 mls @ 100 mls/hr 04/12/18 22:15 04/13/18 14:31 Sodium Chloride IVPB 100 mls/hr Q8H SARAH Administration Protocol Meropenem 1 gm/ Sodium 100 mls @ 100 mls/hr 04/13/18 16:00 04/13/18 16:02 Chloride IVPB 100 mls/hr Q8H SARAH Administration Protocol Morphine Sulfate 2 mg 04/11/18 22:22 04/13/18 12:24 Morphine IVP 2 mg Q4 PRN Administration Pain, moderate (4-7) Nystatin 5 ml 04/12/18 22:00 04/13/18 14:34 Nystatin Oral Susp PO 5 ml QID SARAH Administration Pantoprazole Sodium 40 mg 04/11/18 20:30 04/13/18 08:07 Protonix Inj IVP 40 mg Q12H SARAH Administration Saliva Substitute 10 ml 04/12/18 00:00 04/13/18 12:22 First Magic Mouthwash PO 10 ml Q6 SARAH Administration - Patient Studies Lab Studies: Microbiology Studies 04/11/18 12:32 Blood Culture - Preliminary Blood Gram Negative Jerry Gram Stain - Final 04/11/18 11:00 Blood Culture - Preliminary Blood NO GROWTH AFTER 48 HOURS 04/11/18 15:54 Urine Culture - Final Urine Yeast Species 04/12/18 08:00 MRSA Culture (Admit) - Final Nose MRSA NOT DETECTED 04/11/18 20:01 Gram Stain - Final Buttock Wound Culture - Final Staphylococcus Aureus 04/12/18 08:00 Ova and Parasite Concentrate Exam - Final Stool Lab Studies 04/13/18 04/13/18 04/13/18 Range/Units 05:20 05:20 05:20 WBC 1.9 L* D (4.8-10.8) K/uL RBC 2.92 L (3.80-5.20) Mil/uL Hgb 7.9 L (11.0-16.0) g/dL Hct 24.1 L (34.0-47.0) % MCV 82.7 (81.0-99.0) fL MCH 27.1 (27.0-31.0) pg MCHC 32.8 L (33.0-37.0) g/dL RDW 18.2 H (11.5-14.5) % Plt Count 20 L* (130-400) K/uL MPV 6.7 L (7.2-11.7) fL Neut % (Auto) 82.1 H (50.0-75.0) % Lymph % (Auto) 12.5 L (20.0-40.0) % [place] % (Auto) 5.0 (0.0-10.0) % Eos % (Auto) 0.3 (0.0-4.0) % Baso % (Auto) 0.1 (0.0-2.0) % Neut # (Auto) 1.6 L (1.8-7.0) K/uL Lymph # (Auto) 0.2 L (1.0-4.3) K/uL [place] # (Auto) 0.1 (0.0-0.8) K/uL Eos # (Auto) 0.0 (0.0-0.7) K/uL Baso # (Auto) 0.0 (0.0-0.2) K/uL Sodium 139 (132-148) mmol/L Potassium 2.7 L (3.6-5.2) mmol/L Chloride 104 (98-107) mmol/L Carbon Dioxide 27 (22-30) mmol/L Anion Gap 11 (10-20) BUN 8 (7-17) mg/dL Creatinine 0.3 L (0.7-1.2) mg/dL Est GFR ( Amer) > 60 Est GFR (Non-Af Amer) > 60 Random Glucose 76 D (65-105) mg/dL Lactic Acid 1.0 (0.7-2.1) mmol/L Calcium 7.0 L (8.6-10.4) mg/dl Phosphorus 2.5 (2.5-4.5) mg/dL Magnesium 1.4 L (1.6-2.3) mg/dL Total Bilirubin 0.8 (0.2-1.3) mg/dL AST 17 (14-36) U/L ALT 22 (9-52) U/L Alkaline Phosphatase 70 (38-126) U/L Total Protein 5.7 L (6.3-8.3) g/dL Albumin 2.7 L (3.5-5.0) g/dL Globulin 3.0 (2.2-3.9) gm/dL Albumin/Globulin Ratio 0.9 L (1.0-2.1) Laboratory Results - last 24 hr 04/13/18 04/13/18 04/13/18 05:20 05:20 05:20 WBC 1.9 L* D RBC 2.92 L Hgb 7.9 L Hct 24.1 L MCV 82.7 MCH 27.1 MCHC 32.8 L RDW 18.2 H Plt Count 20 L* MPV 6.7 L Neut % (Auto) 82.1 H Lymph % (Auto) 12.5 L [place] % (Auto) 5.0 Eos % (Auto) 0.3 Baso % (Auto) 0.1 Neut # (Auto) 1.6 L Lymph # (Auto) 0.2 L [place] # (Auto) 0.1 Eos # (Auto) 0.0 Baso # (Auto) 0.0 Sodium 139 Potassium 2.7 L Chloride 104 Carbon Dioxide 27 Anion Gap 11 BUN 8 Creatinine 0.3 L Est GFR ( Amer) > 60 Est GFR (Non-Af Amer) > 60 Random Glucose 76 D Lactic Acid 1.0 Calcium 7.0 L Phosphorus 2.5 Magnesium 1.4 L Total Bilirubin 0.8 AST 17 ALT 22 Alkaline Phosphatase 70 Total Protein 5.7 L Albumin 2.7 L Globulin 3.0 Albumin/Globulin Ratio 0.9 L Critical Care Progress Note - Nutrition Nutrition: Nutrition Category Date Time Status Liquid Diet [DIET] Diets 04/13/18 Lunch Active Attending/Attestation - Attestation I have personally seen and examined this patient.: Yes I have fully participated in the care of the patient.: Yes I have reviewed all pertinent clinical information: Yes Notes (Text): 04/13/18 16:39 Patient seen and examined in the intensive care unit. Case discussed with housestaff in the morning rounds. Transfuse platelets Continue antibiotics Seen by surgery Colonoscopy when more stable Follow-up H&H and transfuse as necessary
[2018-04-13] MEDS ORDERED: Dextrose 50% SYRINGE Inj (50 ml) ONE (12:23)
[2018-04-13] MEDS ORDERED: Dextrose 50% SYRINGE Inj (50 ml) IV ONE (12:30)
[2018-04-13] MEDS ORDERED: Meropenem 1 GM in Sodium Chloride 0.9% 100 ML IVPB SCH (14:00)
--- NOTE | 2018-04-13 14:00 | PN ---
DATE: 04/13/2018 LOCATION: ICU 7. SUBJECTIVE: This is a 58-year-old female seen and examined in rounds without significant clinical changes, appeared to be more awake, alert and oriented with reported fecal incontinence of brownish stool with trace of fresh blood. The entire chart is reviewed including but not limited to the most recent lab results. White blood cells 1.9, hemoglobin 7.9, hematocrit 24.1 with low indices and platelet count of 20 indicative of severe pancytopenia. Potassium 2.7, calcium 7, magnesium 1.4, albumin 2.7, total protein 5.7. The official report of the CAT scan of the abdomen and pelvis reviewed, again indicative of diffuse colon thickening indicative of pancolitis, inflammatory versus infection. PHYSICAL EXAMINATION: GENERAL: A 58-year-old female in a state of DNR and DNI. VITAL SIGNS: Afebrile with pulse of 90, respiratory rate 20 to 22, blood pressure of 120/76. HEENT: Showed pale, dry mucoid membrane. Nonicteric sclerae. LUNGS: Few scattered crepitation. Decreased air entry at bases. HEART: Positive S1 and S2. ABDOMEN: Soft with mild distention with left-sided tenderness. No mass or organomegaly. No rebound tenderness or guarding. EXTREMITIES: Without edematous changes. No clubbing or cyanosis. NEUROLOGIC: No reported new neurological deficits, sensory or motor. IMPRESSION: 1. Rectal bleeding with abnormal CAT scan of the abdomen. The possibility of ischemic colitis was raised as the patient has abdominal pain and diarrhea and bleeding as well as known history of deep venous thrombosis. 2. Diarrhea, most likely secondary to above versus infectious diarrhea. 3. Re-exacerbation of peptic ulcer disease. 4. 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 5. Known history of deep venous thrombosis. SUGGESTIONS: 1. Agree with your plan. 2. Conservative treatment. 3.. Antireflux measure. Further recommendations to follow. Please note that due to the patient's severe pancytopenia, no aggressive GI workup to be performed in the meantime until her thrombocytopenia as well as white blood cells are somewhat corrected. Otherwise close observation to follow with peripheral hyperalimentation. Verito Fish MD [facility] # [id number]
--- NOTE | 2018-04-13 14:22 | CP.PCM.PN ---
Subjective - Date & Time of Evaluation Date of Evaluation: 04/13/18 Time of Evaluation: 14:22 Objective - Vital Signs/Intake and Output Vital Signs (last 24 hours): Temp Pulse Resp BP Pulse Ox 98.2 F 99 H 17 110/64 94 L 04/13/18 13:52 04/13/18 14:00 04/13/18 14:00 04/13/18 13:52 04/13/18 14:00 Intake and Output: 04/13/18 04/13/18 06:59 18:59 Intake Total 1708 1525.0 Output Total 600 400 Balance 1108 1125.0 - Medications Medications: Current Medications Vancomycin/Sodium Chloride (Vancomycin 1 Gm/Ns 200 Ml) 1 gm in 200 mls @ 133.333 mls/hr IVPB Q12H [facility]; Protocol Stop: 04/17/18 01:56 Last Admin: 04/13/18 02:55 Dose: 133.333 mls/hr Lactated Ringer's (Lactated Ringer's) 1,000 mls @ 100 mls/hr IV .Q10H [facility]AH Last Admin: 04/13/18 03:23 Dose: 100 mls/hr Fluconazole 100 mg/ (Miscellaneous) 50 mls @ 100 mls/hr IVPB DAILY [facility]; Protocol Last Admin: 04/13/18 10:05 Dose: 100 mls/hr Gentamicin Sulfate 80 mg/ (Sodium Chloride) 102 mls @ 100 mls/hr IVPB Q8H [facility]; Protocol Last Admin: 04/13/18 06:32 Dose: 100 mls/hr Meropenem 1 gm/ Sodium (Chloride) 100 mls @ 100 mls/hr IVPB Q8H [facility]; Protocol Morphine Sulfate (Morphine) 2 mg IVP Q4 PRN PRN Reason: Pain, moderate (4-7) Last Admin: 04/13/18 12:24 Dose: 2 mg Nystatin (Nystatin Oral Susp) 5 ml PO QID [facility] Last Admin: 04/13/18 10:10 Dose: Not Given Pantoprazole Sodium (Protonix Inj) 40 mg IVP Q12H [facility] Last Admin: 04/13/18 08:07 Dose: 40 mg Saliva Substitute (First Magic Mouthwash) 10 ml PO Q6 [facility] Last Admin: 04/13/18 12:22 Dose: 10 ml - Labs Labs: 04/13/18 05:20 04/13/18 05:20 PT 16.8 SECONDS (9.7-12.2) H 04/12/18 06:10 INR 1.5 04/12/18 06:10 APTT 28 SECONDS (21-34) 04/12/18 06:10
[2018-04-13] MEDS: Meropenem 1 GM in Sodium Chloride 0.9% 100 ML IVPB SCH ×2 (16:02→23:48)
[2018-04-13] MEDS: Dextrose 5%/0.9% NS 1,000 ML IV SCH (17:04)
[2018-04-13 18:27] LABS: BASO % 0.1 % (0.0-2.0); EOS % 0.1 % (0.0-4.0); HEMOGLOBIN 8.4 g/dL (11.0-16.0); LYMPH # 0.3 K/uL (1.0-4.3); LYMPH % 11.9 % (20.0-40.0); MEAN CELL VOLUME 83.2 fL (81.0-99.0); MEAN CORPUSCULAR HEMOGLOBIN 26.7 pg (27.0-31.0); MEAN CORPUSCULAR HGB CONC 32.1 g/dL (33.0-37.0); MEAN PLATELET VOLUME 7.4 fL (7.2-11.7); MONO # 0.2 K/uL (0.0-0.8); MONO % 7.8 % (0.0-10.0); NEUT % 80.1 % (50.0-75.0); RBC 3.15 Mil/uL (3.80-5.20); RED CELL DISTRIBUTION WIDTH 18.7 % (11.5-14.5); WHITE BLOOD COUNT 2.5 K/uL (4.8-10.8)
[2018-04-13 18:42] LABS: ALBUMIN 2.9 g/dL (3.5-5.0); ALT/SGPT 32 U/L (9-52); AST/SGOT 17 U/L (14-36); BLOOD UREA NITROGEN 8 mg/dL (7-17); CALCIUM 7.4 mg/dl (8.6-10.4); GFR NON-AFRICAN AMERICAN > 60
[2018-04-13] MEDS: Magnesium Sulfate 1 gm in D5W 1 GM/100 ML BAG IVPB SCH ×2 (19:13→20:00)
--- NOTE | 2018-04-13 20:28 | CP.PCM.PN ---
Subjective - Date & Time of Evaluation Date of Evaluation: 04/13/18 Time of Evaluation: 18:00 - Subjective Subjective: dictated Objective - Vital Signs/Intake and Output Vital Signs (last 24 hours): Temp Pulse Resp BP Pulse Ox 98.9 F 100 H 22 119/74 99 04/13/18 16:00 04/13/18 19:13 04/13/18 19:13 04/13/18 19:13 04/13/18 19:13 Intake and Output: 04/13/18 04/14/18 18:59 06:59 Intake Total 2643.0 100 Output Total 400 Balance 2243.0 100 - Medications Medications: Current Medications Vancomycin/Sodium Chloride (Vancomycin 1 Gm/Ns 200 Ml) 1 gm in 200 mls @ 133.333 mls/hr IVPB Q12H [facility]; Protocol Stop: 04/17/18 01:56 Last Admin: 04/13/18 14:35 Dose: 133.333 mls/hr Fluconazole 100 mg/ (Miscellaneous) 50 mls @ 100 mls/hr IVPB DAILY SAR[facility]; Protocol Last Admin: 04/13/18 10:05 Dose: 100 mls/hr Gentamicin Sulfate 80 mg/ (Sodium Chloride) 102 mls @ 100 mls/hr IVPB Q8H SARAH; Protocol Last Admin: 04/13/18 14:31 Dose: 100 mls/hr Meropenem 1 gm/ Sodium (Chloride) 100 mls @ 100 mls/hr IVPB Q8H [facility]; Protocol Last Admin: 04/13/18 16:02 Dose: 100 mls/hr Dextrose/Sodium Chloride (Dextrose 5%/0.9% Ns 1000 Ml) 1,000 mls @ 100 mls/hr IV .Q10H [facility]AH Last Admin: 04/13/18 17:04 Dose: 100 mls/hr Magnesium Sulfate/Dextrose (Magnesium Sulfate 1 Gm/100 Ml D5w) 1 gm in 100 mls @ 200 mls/hr IVPB Q30M [facility]AH Stop: 04/13/18 20:29 Last Admin: 04/13/18 20:00 Dose: 200 mls/hr Morphine Sulfate (Morphine) 2 mg IV Q2H PRN PRN Reason: Pain, moderate (4-7) Last Admin: 04/13/18 19:33 Dose: 2 mg Nystatin (Nystatin Oral Susp) 5 ml PO QID [facility]AH Last Admin: 04/13/18 17:04 Dose: 5 ml Pantoprazole Sodium (Protonix Inj) 40 mg IVP Q12H [facility] Last Admin: 04/13/18 20:11 Dose: 40 mg Saliva Substitute (First Magic Mouthwash) 10 ml PO Q6 [facility] Last Admin: 04/13/18 17:05 Dose: 10 ml - Labs Labs: 04/13/18 18:17 04/13/18 18:17 PT 16.8 SECONDS (9.7-12.2) H 04/12/18 06:10 INR 1.5 04/12/18 06:10 APTT 28 SECONDS (21-34) 04/12/18 06:10
--- NOTE | 2018-04-13 23:17 | CP.PCM.PN ---
Subjective - Date & Time of Evaluation Date of Evaluation: 04/13/18 Time of Evaluation: 12:00 - Subjective Subjective: Feeling better but still painful with PO Objective - Vital Signs/Intake and Output Vital Signs (last 24 hours): Temp Pulse Resp BP Pulse Ox 98.1 F 102 H 21 113/62 100 04/13/18 20:00 04/13/18 22:14 04/13/18 22:14 04/13/18 22:14 04/13/18 22:14 Intake and Output: 04/13/18 04/14/18 18:59 06:59 Intake Total 2643.0 700 Output Total 400 Balance 2243.0 700 - Medications Medications: Current Medications Vancomycin/Sodium Chloride (Vancomycin 1 Gm/Ns 200 Ml) 1 gm in 200 mls @ 133.333 mls/hr IVPB Q12H [facility]; Protocol Stop: 04/17/18 01:56 Last Admin: 04/13/18 14:35 Dose: 133.333 mls/hr Fluconazole 100 mg/ (Miscellaneous) 50 mls @ 100 mls/hr IVPB DAILY SARAH; Pr otocol Last Admin: 04/13/18 10:05 Dose: 100 mls/hr Gentamicin Sulfate 80 mg/ (Sodium Chloride) 102 mls @ 100 mls/hr IVPB Q8H [facility]; Protocol Last Admin: 04/13/18 22:10 Dose: 100 mls/hr Meropenem 1 gm/ Sodium (Chloride) 100 mls @ 100 mls/hr IVPB Q8H [facility]; Protocol Last Admin: 04/13/18 16:02 Dose: 100 mls/hr Dextrose/Sodium Chloride (Dextrose 5%/0.9% Ns 1000 Ml) 1,000 mls @ 100 mls/hr IV .Q10H [facility] Last Admin: 04/13/18 17:04 Dose: 100 mls/hr Morphine Sulfate (Morphine) 2 mg IV Q2H PRN PRN Reason: Pain, moderate (4-7) Last Admin: 04/13/18 19:33 Dose: 2 mg Nystatin (Nystatin Oral Susp) 5 ml PO QID [facility] Last Admin: 04/13/18 22:11 Dose: 5 ml Pantoprazole Sodium (Protonix Inj) 40 mg IVP Q12H [facility] Last Admin: 04/13/18 20:11 Dose: 40 mg Saliva Substitute (First Magic Mouthwash) 10 ml PO Q6 [facility] Last Admin: 04/13/18 17:05 Dose: 10 ml - Labs Labs: 04/13/18 18:17 04/13/18 18:17 PT 16.8 SECONDS (9.7-12.2) H 04/12/18 06:10 INR 1.5 04/12/18 06:10 APTT 28 SECONDS (21-34) 04/12/18 06:10 - Head Exam Head Exam: ATRAUMATIC - Eye Exam Eye Exam: Normal appearance - ENT Exam ENT Exam: Mucous Membranes Dry - Respiratory Exam Respiratory Exam: NORMAL BREATHING PATTERN - Cardiovascular Exam Cardiovascular Exam: +S1, +S2 - GI/Abdominal Exam GI & Abdominal Exam: Normal Bowel Sounds Assessment and Plan (1) Pancytopenia Assessment & Plan: neutropenia improving s/p plt transfusion transfusion support PRN Status: Acute (2) Breast cancer Assessment & Plan: stage IV outpatient chemotherapy DNR/DNI Status: Acute
--- NOTE | 2018-04-13 23:48 | PN ---
DATE: 04/13/2018 INFECTIOUS DISEASE FOLLOWUP SUBJECTIVE: The patient was seen today at 6 o'clock. The resident has been calling me that the Surgery wanted meropenem. I held it yesterday because of low platelets; however, she does have gram-negative septicemia, and I would continue Merrem 1 g every 8 hours for now and also gentamicin until the septicemia resolves. She also has a Port-A-Cath. She still complains of abdominal pain. She is having rectal bleeding at this time and complains of abdominal pain. She is awake. She also has right thigh more decubitus, and she wants a position change which will be done as soon as these nurses are changing shift. PHYSICAL EXAMINATION: VITAL SIGNS: At this time, T-max is 98.9, pulse 99, blood pressure 109/80, respirations are 20. HEENT: Head is atraumatic, normocephalic. NECK: Neck is supple. JVP is flat at this time. LUNGS: Clear. No crackles or rales present. She has a left side Port-A-Cath. HEART: S1, S2. Regular. No murmurs appreciated. ABDOMEN: Soft, distended, but has tenderness. EXTREMITIES: Have no edema. She has sacral multiple decubiti, pressure decubiti, and one decubiti on the right leg. She is pancytopenic and has been having bloody bowel movements, rule out pancolitis. Labs are noted. Labs show white count is 2.5 today, hemoglobin 8.4, hematocrit 26.2. Platelet count is 54. She did get platelet transfusion. BUN is 8, creatinine 0.3, and stool occult blood is positive. Stool leukocytes are negative. C. diff is negative. So at this time, she is on medications. She is on fluconazole. She is on gentamicin 80 every 8 hours. She is on meropenem 1 g every 8 hours, and she is on vancomycin 1 g every 12 hours. Her cultures revealed ova parasite final is negative. She also did receive radiation, so I am not sure if this is radiation-induced pancolitis or she also got chemo, is this chemo related. Wound culture has Staph aureus and this Staph aureus is methicillin-sensitive; however, penicillin resistant and Methylsulfonylmethane is clindamycin sensitive, gentamicin sensitive, but we will stay away from clindamycin as the patient is already having diarrhea, and blood culture has gram-negative rods, so it could be related to the abdominal infection, and we will follow ID and sensitivity once that was negative. However, once she improves, she will need a Port-A-Cath change. She was also seen by palliative care nurse and has sacral decubiti, has yeast in the urine, and CAT scan revealed pancolitis. Let me see what GI thinks about it. The GI was going to scope but because of low platelets, they refrained and she is pancytopenic, so we will continue with the treatment at this time, and hopefully, her white count and platelets will improve. The patient has metastatic breast cancer with status post chemo and radiation and is with GI bleed and has pancytopenia, has pancolitis, has UTI and has gram-negative septicemia and has a Port-A-Cath also present. Jacqueline Saez MD
[2018-04-14] MEDS: Mag&Al/Simet/Diphen/Lido 237 ML KIT PO SCH ×6 (00:18→23:19)
[2018-04-14] MEDS: Vancomycin 1 gm/NS 200 ml 1 GM/200 ML BAG IVPB SCH ×2 (01:57→13:18)
[2018-04-14] MEDS: Dextrose 5%/0.9% NS 1,000 ML IV SCH ×4 (03:01→23:20)
--- NOTE | 2018-04-14 05:14 | CARD ---
APPROVED REPORT Date of service: 04/13/2018 EXAM: Two-dimensional and M-mode echocardiogram with Doppler and color Doppler. INDICATION Atrial Fibrillation Asthma, Pneumonia, Sepsis RISK FACTORS Hypertension 2D DIMENSIONS IVSd1.1 (0.7-1.1cm)LVDd4.6 (3.9-5.9cm) PWd1.1 (0.7-1.1cm)LA Umrmqj63 (18-58mL) LVDs2.9 (2.5-4.0cm)FS (%) 36.8 % LVEF (%)66.7 (>50%)LVEF (Evans's)55 % M-Mode DIMENSIONS Left Atrium (MM)3.28 (2.5-4.0cm)IVSd0.86 (0.7-1.1cm) Aortic Root3.32 (2.2-3.7cm)LVDd6.09 (4.0-5.6cm) Aortic Cusp Exc.2.17 (1.5-2.0cm)PWd0.86 (0.7-1.1cm) FS (%) 32 %LVDs4.16 (2.0-3.8cm) LVEF (%)59 (>50%) Aortic Valve AI P 1/2 [id number] Mitral Valve MV E Lgvhqtrv19.2cm/sMV A Hzamhcbd98.2cm/sE/A ratio0.8 TDI Lateral E' Peak V10.45cm/sMedial E' Peak V4.93cm/sE/Lateral E'6.0 E/Medial E'12.8 Tricuspid Valve TR Peak Adbmoodp866zs/sTR Peak Gr.[id number] LEFT VENTRICLE The Left Ventricle is mildly dilated. There is normal left ventricular wall thickness. Left ventricle systolic function is normal. The Ejection Fraction is 60-65%. There is normal LV segmental wall motion. Tissue Doppler imaging reveals abnormal left ventricular diastolic dysfunction. RIGHT VENTRICLE The right ventricle is normal size. There is normal right ventricular wall thickness. The right ventricular systolic function is normal. ATRIA The left atrium size is normal. The right atrium size is normal. The interatrial septum is intact with no evidence for an atrial septal defect. AORTIC VALVE The aortic valve is normal in structure. No aortic regurgitation is present. There is no aortic valvular stenosis. There is no aortic valvular vegetation. MITRAL VALVE The mitral valve is normal in structure. There is no evidence of mitral valve prolapse. There is no mitral valve stenosis. Mitral regurgitation is mild. TRICUSPID VALVE The tricuspid valve is normal in structure. There is mild tricuspid regurgitation. Right ventricular systolic pressure is estimated at 30-40 mmHg. There is mild pulmonary hypertension. PULMONIC VALVE The pulmonic valve is not well visualized. There is no pulmonic valvular regurgitation. GREAT VESSELS The aortic root is normal in size. PERICARDIAL EFFUSION There is no significant pericardial effusion. <Conclusion> Left ventricle systolic function is normal. The Ejection Fraction is 60-65%. Diastolic dysfunction. No aortic regurgitation is present. Mitral regurgitation is mild. There is mild tricuspid regurgitation. There is mild pulmonary hypertension. There is no pulmonic valvular regurgitation.
[2018-04-14 06:34] LABS: BASO % 0.2 % (0.0-2.0); EOS % 0.1 % (0.0-4.0); HEMOGLOBIN 7.3 g/dL (11.0-16.0); LYMPH # 0.3 K/uL (1.0-4.3); LYMPH % 15.1 % (20.0-40.0); MEAN CELL VOLUME 82.5 fL (81.0-99.0); MEAN CORPUSCULAR HEMOGLOBIN 27.3 pg (27.0-31.0); MEAN CORPUSCULAR HGB CONC 33.1 g/dL (33.0-37.0); MEAN PLATELET VOLUME 8.2 fL (7.2-11.7); MONO # 0.2 K/uL (0.0-0.8); MONO % 8.1 % (0.0-10.0); NEUT # 1.7 K/uL (1.8-7.0); NEUT % 76.5 % (50.0-75.0); RBC 2.67 Mil/uL (3.80-5.20); RED CELL DISTRIBUTION WIDTH 18.5 % (11.5-14.5); WHITE BLOOD COUNT 2.3 K/uL (4.8-10.8)
[2018-04-14 07:17] LABS: ALB/GLOB RATIO 0.9 (1.0-2.1); ALBUMIN 2.5 g/dL (3.5-5.0); ALT/SGPT 24 U/L (9-52); AST/SGOT 13 U/L (14-36); BLOOD UREA NITROGEN 6 mg/dL (7-17); CALCIUM 7.2 mg/dl (8.6-10.4); GFR NON-AFRICAN AMERICAN > 60
[2018-04-14] MEDS ORDERED: Magnesium Sulfate 1 gm in D5W 1 GM/100 ML BAG IVPB ONE (07:41)
[2018-04-14] MEDS: Meropenem 1 GM in Sodium Chloride 0.9% 100 ML IVPB SCH ×3 (08:16→23:19)
--- NOTE | 2018-04-14 08:37 | CP.PCM.PN ---
<Ernestina Rod - Last Filed: 04/14/18 11:32> Subjective - Date & Time of Evaluation Date of Evaluation: 04/14/18 Time of Evaluation: 08:34 - Subjective Subjective: Surgery: Dr. Duran Pt seen and examined. No acute overnight events. Pt continues to have pain all over and states abdominal pain has improved. She's tolerating liquids and denies nausea/vomiting. Denies fevers/chills. Objective - Vital Signs/Intake and Output Vital Signs (last 24 hours): Temp Pulse Resp BP Pulse Ox 98.6 F 101 H 21 122/77 100 04/14/18 04:00 04/14/18 07:00 04/14/18 07:00 04/14/18 06:49 04/14/18 05:13 Intake and Output: 04/14/18 04/14/18 06:59 18:59 Intake Total 1966.6 100 Balance 1966.6 100 - Medications Medications: Current Medications Vancomycin/Sodium Chloride (Vancomycin 1 Gm/Ns 200 Ml) 1 gm in 200 mls @ 133.333 mls/hr IVPB Q12H SARAH; Protocol Stop: 04/17/18 01:56 Last Admin: 04/14/18 01:57 Dose: 133.333 mls/hr Fluconazole 100 mg/ (Miscellaneous) 50 mls @ 100 mls/hr IVPB DAILY SARAH; Protocol Last Admin: 04/13/18 10:05 Dose: 100 mls/hr Gentamicin Sulfate 80 mg/ (Sodium Chloride) 102 mls @ 100 mls/hr IVPB Q8H SARAH; Protocol Last Admin: 04/14/18 05:30 Dose: 100 mls/hr Meropenem 1 gm/ Sodium (Chloride) 100 mls @ 100 mls/hr IVPB Q8H SARAH; Protocol Last Admin: 04/14/18 08:16 Dose: 100 mls/hr Dextrose/Sodium Chloride (Dextrose 5%/0.9% Ns 1000 Ml) 1,000 mls @ 100 mls/hr IV .Q10H [facility]AH Last Admin: 04/14/18 04:30 Dose: 100 mls/hr Potassium Chloride (Potassium Chloride 20 Meq/100 Ml) 20 meq in 100 mls @ 50 mls/hr IVPB Q2H SARAH Stop: 04/14/18 17:59 Last Admin: 04/14/18 08:14 Dose: 50 mls/hr Morphine Sulfate (Morphine) 2 mg IV Q2H PRN PRN Reason: Pain, moderate (4-7) Last Admin: 04/14/18 06:00 Dose: 2 mg Nystatin (Nystatin Oral Susp) 5 ml PO QID [facility] Last Admin: 04/13/18 22:11 Dose: 5 ml Pantoprazole Sodium (Protonix Inj) 40 mg IVP Q12H [facility] Last Admin: 04/14/18 08:17 Dose: 40 mg Saliva Substitute (First Magic Mouthwash) 10 ml PO Q6 [facility] Last Admin: 04/14/18 05:00 Dose: 10 ml - Labs Labs: 04/14/18 06:26 04/14/18 06:26 PT 16.8 SECONDS (9.7-12.2) H 04/12/18 06:10 INR 1.5 04/12/18 06:10 APTT 28 SECONDS (21-34) 04/12/18 06:10 - Constitutional Appears: Well, No Acute Distress - Head Exam Head Exam: ATRAUMATIC, NORMOCEPHALIC - Eye Exam Eye Exam: Normal appearance - Respiratory Exam Respiratory Exam: NORMAL BREATHING PATTERN - Cardiovascular Exam Cardiovascular Exam: Tachycardia - GI/Abdominal Exam GI & Abdominal Exam: Soft. absent: Distended - Neurological Exam Neurological Exam: Alert, Awake, Oriented x3 - Skin Skin Exam: Dry, Warm Assessment and Plan - Assessment and Plan (Free Text) Assessment: 58F with metastatic Breast CA admitted for generalized pain, and bloody diarrhea secondary to colitis Plan: - no plan for surgical intervention at this time - cont conservative management - d/w Dr. Renee Rod <Wilber Duran B - Last Filed: 04/22/18 20:50> Objective - Vital Signs/Intake and Output Vital Signs (last 24 hours): Temp Pulse Resp BP Pulse Ox 98.1 F 105 H 20 103/62 98 04/22/18 15:15 04/22/18 15:15 04/22/18 15:15 04/22/18 15:15 04/22/18 15:15 Intake and Output: 04/22/18 04/23/18 18:59 06:59 Intake Total 780 Output Total 1000 Balance -220 - Medications Medications: Current Medications Calcium Carbonate (Oscal) 500 mg PO DAILY [facility] Last Admin: 04/22/18 10:44 Dose: 500 mg Piperacillin Sod/Tazobactam (Sod 3.375 gm/ Sodium Chloride) 100 mls @ 200 mls/hr IVPB Q8H [facility]; Protocol Last Admin: 04/22/18 19:04 Dose: 200 mls/hr Fluconazole (Diflucan Iv 200 Mg/100 Ml Ns) 100 mls @ 100 mls/hr IVPB Q24H [facility]AH; Protocol Last Admin: 04/22/18 10:45 Dose: 100 mls/hr Potassium Chloride/Dextrose/Sod Cl (Potassium Chl 20 Meq In D5-1/2ns) 1,000 mls @ 50 mls/hr IV .Q20H [facility] Last Admin: 04/22/18 10:54 Dose: Not Given Midodrine (Proamatine) 5 mg PO TID [facility] Last Admin: 04/22/18 18:01 Dose: 5 mg Morphine Sulfate (Morphine) 2 mg IV Q2H PRN PRN Reason: Pain, moderate (4-7) Last Admin: 04/22/18 12:21 Dose: 2 mg Pantoprazole Sodium (Protonix Inj) 40 mg IVP Q12H [facility] Last Admin: 04/22/18 08:55 Dose: 40 mg Saliva Substitute (First Magic Mouthwash) 10 ml PO Q6 [facility] Last Admin: 04/22/18 18:07 Dose: Not Given - Labs Labs: 04/22/18 07:16 04/21/18 07:23 PT 16.8 SECONDS (9.7-12.2) H 04/12/18 06:10 INR 1.5 04/12/18 06:10 APTT 28 SECONDS (21-34) 04/12/18 06:10 Attending/Attestation - Attestation I have personally seen and examined this patient.: Yes I have fully participated in the care of the patient.: Yes I have reviewed all pertinent clinical information, including history, physical exam and plan: Yes Notes (Text): Pt was seen and examined at bedside Agree with above note and assessment Pt is improving clinically C.w IV antibiotics c.w current mx No general surgery intervention required at present Plan d.w primary team in detail Risk and benefit explained in detail.
[2018-04-14] MEDS: Fluconazole IV 200mg/100 ml NS 100 MG in Premixed IV 1 EA IVPB SCH (09:34)
[2018-04-14] MEDS: Nystatin 100,000 Units/ml Oral Susp 5 ml UD PO SCH ×4 (09:34→21:52)
[2018-04-14] MEDS ORDERED: Potassium Chloride 20 mEq ER Tab PO SCH (11:30)
--- NOTE | 2018-04-14 13:04 | CP.PCM.PN ---
Subjective - Date & Time of Evaluation Date of Evaluation: 04/14/18 Time of Evaluation: 13:02 - Subjective Subjective: GI Fellow PGY4, progress note The patient's abdominal pain is improving. she is still have some blood clots per rectum. She has poor appetite, but no n/v. No fever. HDS. Discussed with nursing. Objective - Vital Signs/Intake and Output Vital Signs (last 24 hours): Temp Pulse Resp BP Pulse Ox 98.4 F 108 H 22 126/94 H 100 04/14/18 12:00 04/14/18 12:14 04/14/18 12:14 04/14/18 12:14 04/14/18 12:00 Intake and Output: 04/14/18 04/14/18 06:59 18:59 Intake Total 1966.6 1000 Output Total 250 Balance 1966.6 750 - Medications Medications: Current Medications Vancomycin/Sodium Chloride (Vancomycin 1 Gm/Ns 200 Ml) 1 gm in 200 mls @ 133.333 mls/hr IVPB Q12H [facility]; Protocol Stop: 04/17/18 01:56 Last Admin: 04/14/18 01:57 Dose: 133.333 mls/hr Fluconazole 100 mg/ (Miscellaneous) 50 mls @ 100 mls/hr IVPB DAILY [facility]; Protocol Last Admin: 04/14/18 09:34 Dose: 100 mls/hr Gentamicin Sulfate 80 mg/ (Sodium Chloride) 102 mls @ 100 mls/hr IVPB Q8H [facility]; Protocol Last Admin: 04/14/18 05:30 Dose: 100 mls/hr Meropenem 1 gm/ Sodium (Chloride) 100 mls @ 100 mls/hr IVPB Q8H [facility]; Protocol Last Admin: 04/14/18 08:16 Dose: 100 mls/hr Dextrose/Sodium Chloride (Dextrose 5%/0.9% Ns 1000 Ml) 1,000 mls @ 100 mls/hr IV .Q10H [facility] Last Admin: 04/14/18 12:31 Dose: Not Given Potassium Chloride (Potassium Chloride 20 Meq/100 Ml) 20 meq in 100 mls @ 50 mls/hr IVPB Q2H [facility] Stop: 04/14/18 13:59 Last Admin: 04/14/18 12:04 Dose: 50 mls/hr Morphine Sulfate (Morphine) 2 mg IV Q2H PRN PRN Reason: Pain, moderate (4-7) Last Admin: 04/14/18 12:23 Dose: 2 mg Nystatin (Nystatin Oral Susp) 5 ml PO QID [facility] Last Admin: 04/14/18 09:34 Dose: 5 ml Pantoprazole Sodium (Protonix Inj) 40 mg IVP Q12H [facility] Last Admin: 04/14/18 08:17 Dose: 40 mg Potassium Chloride (K-Dur 20 Meq Er Tab) 40 meq PO DAILY [facility] Last Admin: 04/14/18 12:04 Dose: 40 meq Saliva Substitute (First Magic Mouthwash) 10 ml PO Q6 [facility] Last Admin: 04/14/18 12:05 Dose: 10 ml - Labs Labs: 04/14/18 06:26 04/14/18 06:26 PT 16.8 SECONDS (9.7-12.2) H 04/12/18 06:10 INR 1.5 04/12/18 06:10 APTT 28 SECONDS (21-34) 04/12/18 06:10 - Constitutional Appears: Non-toxic, No Acute Distress, Chronically Ill - Head Exam Head Exam: ATRAUMATIC. absent: NORMAL INSPECTION - Respiratory Exam Respiratory Exam: Clear to Ausculation Bilateral, NORMAL BREATHING PATTERN - Cardiovascular Exam Cardiovascular Exam: REGULAR RHYTHM, +S1, +S2 - GI/Abdominal Exam GI & Abdominal Exam: Soft, Tenderness, Normal Bowel Sounds - Extremities Exam Extremities Exam: absent: Normal Inspection - Neurological Exam Neurological Exam: Alert, Awake, Oriented x3 - Psychiatric Exam Psychiatric exam: Normal Affect, Normal Mood - Skin Skin Exam: Abrasion, Warm Assessment and Plan - Assessment and Plan (Free Text) Assessment: #Acute abdominal pain #pancolitis #Panctyopenia #R Psoas lesion #Metastatic breast CA on Chemo, radiation #Sacral ulcers #Thrush #Obesity #Abnormal electrolytes PLAN: -Likely ischemic colitis. Currently on Merrem, gent, vanco. -f/u stool and other cultures. C.diff negative. -Fluconazole for thrush. -IR consulted for ?R psoas abscess aspiration, however, cannot be approached via percutaneous approach. -f/u consult oncology, surgery, ID -Electrolyte replacements per ICU. -Continue IVF per ICU. -Would not recommend colonoscopy at this time as patient is very sick, and high risk for perforation, bleeding. -No EGD at this time, risk is greater than benefit. -Clear Liquid diet -DNR/DNI. Refused hospice.
--- NOTE | 2018-04-14 13:51 | CP.PCM.PN ---
Subjective - Date & Time of Evaluation Date of Evaluation: 04/14/18 Time of Evaluation: 13:51 Objective - Vital Signs/Intake and Output Vital Signs (last 24 hours): Temp Pulse Resp BP Pulse Ox 98.4 F 99 H 19 107/62 89 L 04/14/18 12:00 04/14/18 13:13 04/14/18 13:13 04/14/18 13:13 04/14/18 13:13 Intake and Output: 04/14/18 04/14/18 06:59 18:59 Intake Total 1966.6 1150 Output Total 250 Balance 1966.6 900 - Medications Medications: Current Medications Vancomycin/Sodium Chloride (Vancomycin 1 Gm/Ns 200 Ml) 1 gm in 200 mls @ 133.333 mls/hr IVPB Q12H SARAH; Protocol Stop: 04/17/18 01:56 Last Admin: 04/14/18 13:18 Dose: 133.333 mls/hr Fluconazole 100 mg/ (Miscellaneous) 50 mls @ 100 mls/hr IVPB DAILY SARAH; Protocol Last Admin: 04/14/18 09:34 Dose: 100 mls/hr Gentamicin Sulfate 80 mg/ (Sodium Chloride) 102 mls @ 100 mls/hr IVPB Q8H SARAH; Protocol Last Admin: 04/14/18 13:25 Dose: 100 mls/hr Meropenem 1 gm/ Sodium (Chloride) 100 mls @ 100 mls/hr IVPB Q8H SARAH; Protocol Last Admin: 04/14/18 08:16 Dose: 100 mls/hr Dextrose/Sodium Chloride (Dextrose 5%/0.9% Ns 1000 Ml) 1,000 mls @ 100 mls/hr IV .Q10H [facility]AH Last Admin: 04/14/18 12:31 Dose: Not Given Potassium Chloride (Potassium Chloride 20 Meq/100 Ml) 20 meq in 100 mls @ 50 mls/hr IVPB Q2H [facility]AH Stop: 04/14/18 13:59 Last Admin: 04/14/18 12:04 Dose: 50 mls/hr Morphine Sulfate (Morphine) 2 mg IV Q2H PRN PRN Reason: Pain, moderate (4-7) Last Admin: 04/14/18 12:23 Dose: 2 mg Nystatin (Nystatin Oral Susp) 5 ml PO QID SARAH Last Admin: 04/14/18 13:25 Dose: 5 ml Pantoprazole Sodium (Protonix Inj) 40 mg IVP Q12H [facility] Last Admin: 04/14/18 08:17 Dose: 40 mg Potassium Chloride (K-Dur 20 Meq Er Tab) 40 meq PO DAILY SARAH Last Admin: 04/14/18 12:04 Dose: 40 meq Saliva Substitute (First Magic Mouthwash) 10 ml PO Q6 [facility]AH Last Admin: 04/14/18 12:05 Dose: 10 ml - Labs Labs: 04/14/18 06:26 04/14/18 06:26 PT 16.8 SECONDS (9.7-12.2) H 04/12/18 06:10 INR 1.5 04/12/18 06:10 APTT 28 SECONDS (21-34) 04/12/18 06:10
--- NOTE | 2018-04-14 16:02 | CP.CCUPN ---
<Jorge Tatemeagan - Last Filed: 04/14/18 15:59> CCU Subjective - Physician Review Events Since Last Encounter (Free Text): 04/14/18 16:00 bloody bowel movements were noted yesterday Subjective (Free Text): 04/14/18 15:59 Critical Care Progress Note for Dr. Lopez's service Patient seen and examined at bedside. Patient offers no acute complaints. Patient denies fevers, chills, chest pain, sob, n/v, constipation or diarrhea, and dysuira. Critical Care Time Spent (in minutes): 35 CCU Objective - Vital Signs / Intake & Output Vital Signs (Last 4 hours): Vital Signs Temp Pulse Resp BP Pulse Ox 04/14/18 15:40 98.2 F 94 H 18 106/64 04/14/18 15:25 98.1 F 96 H 20 111/66 04/14/18 15:13 97 H 18 103/65 89 L 04/14/18 15:00 96 H 17 84 L 04/14/18 14:13 89 16 115/58 L 04/14/18 14:00 96 H 16 04/14/18 13:13 99 H 19 107/62 89 L 04/14/18 13:00 97 H 17 04/14/18 12:14 108 H 22 126/94 H 04/14/18 12:00 98.4 F 102 H 21 100 Intake and Output (Last 8hrs): Intake & Output 04/14/18 04/14/18 04/14/18 06:59 14:59 22:59 Intake Total 1266.6 1450 20 Output Total 250 Balance 1266.6 1200 20 Weight 220 lb Intake: Intake, IV Amount 1266.6 1300 Left Port-A-Cath 800 900 Left PortaCath side port 466.6 400 Oral 150 Blood Product 0 Apheresis Plts Acda Lr 0 Irr Unit [id number] Other 20 Apheresis Plts Acda Lr 20 Irr Unit [id number] Output: Urine 250 Urine, Voided 250 Other: # Voids Urine, Voided 0 0 # Bowel Movements 0 0 - Physical Exam Head: Positive for: Atraumatic, Normocephalic Nose (External): Positive for: Atraumatic Neck: Negative for: Lymphadenopathy Respiratory/Chest: Positive for: Clear to Auscultation (patient got agitated when attempting to lean her forward, so only listened to lung clements anteriorly), Good Air Exchange. Negative for: Respiratory Distress, Accessory Muscle Use Cardiovascular: Positive for: Regular Rate and Rhythm (mild tachycardia), Normal S1, S2 Abdomen: Positive for: Tenderness. Negative for: Normal Bowel Sounds (hypoactive bowel sounds), Peritoneal Signs, Rebound Upper Extremity: Positive for: Edema (nonpitting edema), Other (hands cool to touch. 1/5 UE strength.). Negative for: Normal Inspection Lower Extremity: Positive for: Edema (nonpitting). Negative for: Normal Inspection Neurological: Positive for: GCS=15 Skin: Positive for: Other (left portacath subclavian) Psychiatric: Positive for: Alert, Oriented x 3, Depressed Mood (patient tearful at times of exam), Lethargic - Medications Active Medications: Active Medications Generic Name Dose Route Start Last Admin Trade Name Freq PRN Reason Stop Dose Admin Vancomycin/Sodium Chloride 1 gm in 200 mls @ 133.333 mls/hr 04/12/18 01:55 04/14/18 13:18 Vancomycin 1 Gm/Ns 200 Ml IVPB 04/17/18 01:56 133.333 mls/hr Q12H SARAH Administration Protocol Fluconazole 100 mg/ 50 mls @ 100 mls/hr 04/12/18 16:00 04/14/18 09:34 Miscellaneous IVPB 100 mls/hr DAILY SARAH Administration Protocol Gentamicin Sulfate 80 mg/ 102 mls @ 100 mls/hr 04/12/18 22:15 04/14/18 13:25 Sodium Chloride IVPB 100 mls/hr Q8H SARAH Administration Protocol Meropenem 1 gm/ Sodium 100 mls @ 100 mls/hr 04/13/18 16:00 04/14/18 08:16 Chloride IVPB 100 mls/hr Q8H SARAH Administration Protocol Dextrose/Sodium Chloride 1,000 mls @ 100 mls/hr 04/13/18 17:00 04/14/18 12:31 Dextrose 5%/0.9% Ns 1000 Ml IV Not Given .Q10H SARAH Morphine Sulfate 2 mg 04/13/18 19:18 04/14/18 12:23 Morphine IV 2 mg Q2H PRN Administration Pain, moderate (4-7) Nystatin 5 ml 04/12/18 22:00 04/14/18 13:25 Nystatin Oral Susp PO 5 ml QID SARAH Administration Pantoprazole Sodium 40 mg 04/11/18 20:30 04/14/18 08:17 Protonix Inj IVP 40 mg Q12H SARAH Administration Potassium Chloride 40 meq 04/14/18 11:30 04/14/18 12:04 K-Dur 20 Meq Er Tab PO 40 meq DAILY SARAH Administration Saliva Substitute 10 ml 04/12/18 00:00 04/14/18 12:05 First Magic Mouthwash PO 10 ml Q6 SARAH Administration - Patient Studies Lab Studies: Microbiology Studies 04/11/18 12:32 Blood Culture - Final Blood Gram Stain - Final 04/11/18 11:00 Blood Culture - Preliminary Blood NO GROWTH AFTER 3 DAYS 04/12/18 08:00 Stool Culture - Final Stool NO SALMONELLA, SHIGELLA OR CAMPYLOBACTER ISOLATED. 04/11/18 15:54 Urine Culture - Final Urine Yeast Species 04/12/18 08:00 MRSA Culture (Admit) - Final Nose MRSA NOT DETECTED Lab Studies 04/14/18 04/14/18 04/14/18 Range/Units 07:24 06:26 06:26 WBC 2.3 L (4.8-10.8) K/uL RBC 2.67 L (3.80-5.20) Mil/uL Hgb 7.3 L (11.0-16.0) g/dL Hct 22.0 L (34.0-47.0) % MCV 82.5 (81.0-99.0) fL MCH 27.3 (27.0-31.0) pg MCHC 33.1 (33.0-37.0) g/dL RDW 18.5 H (11.5-14.5) % Plt Count 41 L (130-400) K/uL MPV 8.2 (7.2-11.7) fL Neut % (Auto) 76.5 H (50.0-75.0) % Lymph % (Auto) 15.1 L (20.0-40.0) % Bee % (Auto) 8.1 (0.0-10.0) % Eos % (Auto) 0.1 (0.0-4.0) % Baso % (Auto) 0.2 (0.0-2.0) % Neut # (Auto) 1.7 L (1.8-7.0) K/uL Lymph # (Auto) 0.3 L (1.0-4.3) K/uL Bee # (Auto) 0.2 (0.0-0.8) K/uL Eos # (Auto) 0.0 (0.0-0.7) K/uL Baso # (Auto) 0.0 (0.0-0.2) K/uL Differential Comment Sodium 137 (132-148) mmol/L Potassium 2.9 L (3.6-5.2) mmol/L Chloride 102 (98-107) mmol/L Carbon Dioxide 28 (22-30) mmol/L Anion Gap 10 (10-20) BUN 6 L (7-17) mg/dL Creatinine 0.3 L (0.7-1.2) mg/dL Est GFR ( Amer) > 60 Est GFR (Non-Af Amer) > 60 POC Glucose (mg/dL) 83 (65-110) mg/dL Random Glucose 88 (65-105) mg/dL Calcium 7.2 L (8.6-10.4) mg/dl Phosphorus 2.5 (2.5-4.5) mg/dL Magnesium 1.5 L (1.6-2.3) mg/dL Total Bilirubin 0.5 (0.2-1.3) mg/dL AST 13 L D (14-36) U/L ALT 24 (9-52) U/L Alkaline Phosphatase 70 (38-126) U/L Total Protein 5.3 L (6.3-8.3) g/dL Albumin 2.5 L (3.5-5.0) g/dL Globulin 2.8 (2.2-3.9) gm/dL Albumin/Globulin Ratio 0.9 L (1.0-2.1) Blood Type Antibody Screen 04/13/18 04/13/18 04/13/18 Range/Units 21:25 18:17 18:17 WBC 2.5 L (4.8-10.8) K/uL RBC 3.15 L (3.80-5.20) Mil/uL Hgb 8.4 L (11.0-16.0) g/dL Hct 26.2 L (34.0-47.0) % MCV 83.2 (81.0-99.0) fL MCH 26.7 L (27.0-31.0) pg MCHC 32.1 L (33.0-37.0) g/dL RDW 18.7 H (11.5-14.5) % Plt Count 54 L D (130-400) K/uL MPV 7.4 (7.2-11.7) fL Neut % (Auto) 80.1 H (50.0-75.0) % Lymph % (Auto) 11.9 L (20.0-40.0) % Bee % (Auto) 7.8 (0.0-10.0) % Eos % (Auto) 0.1 (0.0-4.0) % Baso % (Auto) 0.1 (0.0-2.0) % Neut # (Auto) 2.0 (1.8-7.0) K/uL Lymph # (Auto) 0.3 L (1.0-4.3) K/uL Bee # (Auto) 0.2 (0.0-0.8) K/uL Eos # (Auto) 0.0 (0.0-0.7) K/uL Baso # (Auto) 0.0 (0.0-0.2) K/uL Differential Comment Sodium 137 (132-148) mmol/L Potassium 3.7 (3.6-5.2) mmol/L Chloride 104 (98-107) mmol/L Carbon Dioxide 26 (22-30) mmol/L Anion Gap 11 (10-20) BUN 8 (7-17) mg/dL Creatinine 0.3 L (0.7-1.2) mg/dL Est GFR ( Amer) > 60 Est GFR (Non-Af Amer) > 60 POC Glucose (mg/dL) 112 H (65-110) mg/dL Random Glucose 81 (65-105) mg/dL Calcium 7.4 L (8.6-10.4) mg/dl Phosphorus 3.2 (2.5-4.5) mg/dL Magnesium 1.4 L (1.6-2.3) mg/dL Total Bilirubin 0.8 (0.2-1.3) mg/dL AST 17 (14-36) U/L ALT 32 (9-52) U/L Alkaline Phosphatase 69 (38-126) U/L Total Protein 5.8 L (6.3-8.3) g/dL Albumin 2.9 L (3.5-5.0) g/dL Globulin 2.9 (2.2-3.9) gm/dL Albumin/Globulin Ratio 1.0 (1.0-2.1) Blood Type Antibody Screen 04/13/18 04/13/18 04/13/18 Range/Units 16:36 12:38 12:15 WBC (4.8-10.8) K/uL RBC (3.80-5.20) Mil/uL Hgb (11.0-16.0) g/dL Hct (34.0-47.0) % MCV (81.0-99.0) fL MCH (27.0-31.0) pg MCHC (33.0-37.0) g/dL RDW (11.5-14.5) % Plt Count (130-400) K/uL MPV (7.2-11.7) fL Neut % (Auto) (50.0-75.0) % Lymph % (Auto) (20.0-40.0) % Bee % (Auto) (0.0-10.0) % Eos % (Auto) (0.0-4.0) % Baso % (Auto) (0.0-2.0) % Neut # (Auto) (1.8-7.0) K/uL Lymph # (Auto) (1.0-4.3) K/uL Bee # (Auto) (0.0-0.8) K/uL Eos # (Auto) (0.0-0.7) K/uL Baso # (Auto) (0.0-0.2) K/uL Differential Comment Sodium (132-148) mmol/L Potassium (3.6-5.2) mmol/L Chloride (98-107) mmol/L Carbon Dioxide (22-30) mmol/L Anion Gap (10-20) BUN (7-17) mg/dL Creatinine (0.7-1.2) mg/dL Est GFR ( Amer) Est GFR (Non-Af Amer) POC Glucose (mg/dL) 70 129 H 60 L (65-110) mg/dL Random Glucose (65-105) mg/dL Calcium (8.6-10.4) mg/dl Phosphorus (2.5-4.5) mg/dL Magnesium (1.6-2.3) mg/dL Total Bilirubin (0.2-1.3) mg/dL AST (14-36) U/L ALT (9-52) U/L Alkaline Phosphatase (38-126) U/L Total Protein (6.3-8.3) g/dL Albumin (3.5-5.0) g/dL Globulin (2.2-3.9) gm/dL Albumin/Globulin Ratio (1.0-2.1) Blood Type Antibody Screen 04/13/18 04/13/18 04/11/18 Range/Units 11:47 11:44 17:57 WBC (4.8-10.8) K/uL RBC (3.80-5.20) Mil/uL Hgb (11.0-16.0) g/dL Hct (34.0-47.0) % MCV (81.0-99.0) fL MCH (27.0-31.0) pg MCHC (33.0-37.0) g/dL RDW (11.5-14.5) % Plt Count (130-400) K/uL MPV (7.2-11.7) fL Neut % (Auto) (50.0-75.0) % Lymph % (Auto) (20.0-40.0) % Bee % (Auto) (0.0-10.0) % Eos % (Auto) (0.0-4.0) % Baso % (Auto) (0.0-2.0) % Neut # (Auto) (1.8-7.0) K/uL Lymph # (Auto) (1.0-4.3) K/uL Bee # (Auto) (0.0-0.8) K/uL Eos # (Auto) (0.0-0.7) K/uL Baso # (Auto) (0.0-0.2) K/uL Differential Comment Sodium (132-148) mmol/L Potassium (3.6-5.2) mmol/L Chloride (98-107) mmol/L Carbon Dioxide (22-30) mmol/L Anion Gap (10-20) BUN (7-17) mg/dL Creatinine (0.7-1.2) mg/dL Est GFR ( Amer) Est GFR (Non-Af Amer) POC Glucose (mg/dL) 64 L 59 L (65-110) mg/dL Random Glucose (65-105) mg/dL Calcium (8.6-10.4) mg/dl Phosphorus (2.5-4.5) mg/dL Magnesium (1.6-2.3) mg/dL Total Bilirubin (0.2-1.3) mg/dL AST (14-36) U/L ALT (9-52) U/L Alkaline Phosphatase (38-126) U/L Total Protein (6.3-8.3) g/dL Albumin (3.5-5.0) g/dL Globulin (2.2-3.9) gm/dL Albumin/Globulin Ratio (1.0-2.1) Blood Type O POSITIVE Antibody Screen Negative Laboratory Results - last 24 hr 04/11/18 04/13/18 04/13/18 17:57 11:44 11:47 WBC RBC Hgb Hct MCV MCH MCHC RDW Plt Count MPV Neut % (Auto) Lymph % (Auto) Bee % (Auto) Eos % (Auto) Baso % (Auto) Neut # (Auto) Lymph # (Auto) Bee # (Auto) Eos # (Auto) Baso # (Auto) Differential Comment Sodium Potassium Chloride Carbon Dioxide Anion Gap BUN Creatinine Est GFR ( Amer) Est GFR (Non-Af Amer) POC Glucose (mg/dL) 59 L 64 L Random Glucose Calcium Phosphorus Magnesium Total Bilirubin AST ALT Alkaline Phosphatase Total Protein Albumin Globulin Albumin/Globulin Ratio Blood Type O POSITIVE Antibody Screen Negative 04/13/18 04/13/18 04/13/18 12:15 12:38 16:36 WBC RBC Hgb Hct MCV MCH MCHC RDW Plt Count MPV Neut % (Auto) Lymph % (Auto) Bee % (Auto) Eos % (Auto) Baso % (Auto) Neut # (Auto) Lymph # (Auto) Bee # (Auto) Eos # (Auto) Baso # (Auto) Differential Comment Sodium Potassium Chloride Carbon Dioxide Anion Gap BUN Creatinine Est GFR ( Amer) Est GFR (Non-Af Amer) POC Glucose (mg/dL) 60 L 129 H 70 Random Glucose Calcium Phosphorus Magnesium Total Bilirubin AST ALT Alkaline Phosphatase Total Protein Albumin Globulin Albumin/Globulin Ratio Blood Type Antibody Screen 04/13/18 04/13/18 04/13/18 18:17 18:17 21:25 WBC 2.5 L RBC 3.15 L Hgb 8.4 L Hct 26.2 L MCV 83.2 MCH 26.7 L MCHC 32.1 L RDW 18.7 H Plt Count 54 L D MPV 7.4 Neut % (Auto) 80.1 H Lymph % (Auto) 11.9 L Bee % (Auto) 7.8 Eos % (Auto) 0.1 Baso % (Auto) 0.1 Neut # (Auto) 2.0 Lymph # (Auto) 0.3 L Bee # (Auto) 0.2 Eos # (Auto) 0.0 Baso # (Auto) 0.0 Differential Comment Sodium 137 Potassium 3.7 Chloride 104 Carbon Dioxide 26 Anion Gap 11 BUN 8 Creatinine 0.3 L Est GFR ( Amer) > 60 Est GFR (Non-Af Amer) > 60 POC Glucose (mg/dL) 112 H Random Glucose 81 Calcium 7.4 L Phosphorus 3.2 Magnesium 1.4 L Total Bilirubin 0.8 AST 17 ALT 32 Alkaline Phosphatase 69 Total Protein 5.8 L Albumin 2.9 L Globulin 2.9 Albumin/Globulin Ratio 1.0 Blood Type Antibody Screen 04/14/18 04/14/18 04/14/18 06:26 06:26 07:24 WBC 2.3 L RBC 2.67 L Hgb 7.3 L Hct 22.0 L MCV 82.5 MCH 27.3 MCHC 33.1 RDW 18.5 H Plt Count 41 L MPV 8.2 Neut % (Auto) 76.5 H Lymph % (Auto) 15.1 L Bee % (Auto) 8.1 Eos % (Auto) 0.1 Baso % (Auto) 0.2 Neut # (Auto) 1.7 L Lymph # (Auto) 0.3 L Bee # (Auto) 0.2 Eos # (Auto) 0.0 Baso # (Auto) 0.0 Differential Comment Sodium 137 Potassium 2.9 L Chloride 102 Carbon Dioxide 28 Anion Gap 10 BUN 6 L Creatinine 0.3 L Est GFR ( Amer) > 60 Est GFR (Non-Af Amer) > 60 POC Glucose (mg/dL) 83 Random Glucose 88 Calcium 7.2 L Phosphorus 2.5 Magnesium 1.5 L Total Bilirubin 0.5 AST 13 L D ALT 24 Alkaline Phosphatase 70 Total Protein 5.3 L Albumin 2.5 L Globulin 2.8 Albumin/Globulin Ratio 0.9 L Blood Type Antibody Screen Fingerstick Blood Sugar Results: 91 Review of Systems - Review of Systems Review of Systems: 12 point ROs obtained and noted as in HPI Critical Care Progress Note - Prophylaxis GI Prophylaxis GI: PPI - Nutrition Nutrition: Nutrition Category Date Time Status Liquid Diet [DIET] Diets 04/13/18 Lunch Active Assessment/Plan - Assessment and Plan (Free Text) Assessment: Patient is a 58 yo female w/ PMH breast cancer w/ multiple mets to breast, lungs, and bone, asthma, htn admitted to ICU for GI bleed and abdominal pain with n/v. Neuro awake, alert, oriented communicative Pulm maintain spo2>[address] abd/pelvis- 8 mm right lower nodule; hx of mets to lung CV no acute issues Echo- normal LV function; EF 60-65 GI no acute issues EGD deferred in setting of low platelets as per GI Liquid diet Endo no acute issues dextrose fluids Heme 1 unit of pRBCs 1 unit of platelets Renal Dextrose 5 in NS @ 100 KCl 20meq IV x3 Oral Kcl 40 meq ID + blood cx for bacteroides + urine cx for yeast species + wound culture for s. aureus Gentamicin Fluconazole Meorpenem Nystatin for thrush Vancomycin PRN: Morphine DVT ppx: SCDs GI ppx: Protonix Madaser Bebeto PGY-1 Medical Management d/w Dr. Lopez <Rylan Lopez - Last Filed: 04/14/18 20:48> CCU Objective - Vital Signs / Intake & Output Vital Signs (Last 4 hours): Vital Signs Temp Pulse Resp BP Pulse Ox 04/14/18 19:24 95 H 20 117/71 100 04/14/18 19:09 95 H 19 112/64 100 04/14/18 19:00 96 H 20 100 04/14/18 18:56 98.3 F 95 H 20 107/61 04/14/18 18:54 95 H 20 107/61 100 04/14/18 18:39 97 H 18 113/66 100 04/14/18 18:35 98.4 F 95 H 19 111/74 04/14/18 18:26 98.2 F 95 H 18 111/74 04/14/18 18:24 97 H 19 111/74 100 04/14/18 18:11 98.4 F 96 H 14 105/60 04/14/18 18:09 99 H 20 105/60 100 04/14/18 18:00 100 H 23 100 04/14/18 17:56 98.2 F 97 H 16 110/65 04/14/18 17:54 98 H 20 110/65 100 04/14/18 17:41 106 H 18 105/76 99 04/14/18 17:31 102 H 15 111/68 99 04/14/18 17:00 95 H 20 100 Intake and Output (Last 8hrs): Intake & Output 04/14/18 04/14/18 04/14/18 06:59 14:59 22:59 Intake Total 1266.6 1450 485 Output Total 250 Balance 1266.6 1200 485 Weight 220 lb Intake: Intake, IV Amount 1266.6 1300 100 Left Port-A-Cath 800 900 100 Left PortaCath side port 466.6 400 Oral 150 100 Blood Product 215 Apheresis Plts Acda Lr 215 Irr Unit [id number] Red Blood Cells Cpd As1 0 Lr Unit [id number] Other 70 Apheresis Plts Acda Lr 50 Irr Unit [id number] Red Blood Cells Cpd As1 20 Lr Unit [id number] Output: Urine 250 Urine, Voided 250 Other: # Voids Urine, Voided 0 0 0 # Bowel Movements 0 0 0 - Medications Active Medications: Active Medications Generic Name Dose Route Start Last Admin Trade Name Freq PRN Reason Stop Dose Admin Vancomycin/Sodium Chloride 1 gm in 200 mls @ 133.333 mls/hr 04/12/18 01:55 04/14/18 13:18 Vancomycin 1 Gm/Ns 200 Ml IVPB 04/17/18 01:56 133.333 mls/hr Q12H SARAH Administration Protocol Fluconazole 100 mg/ 50 mls @ 100 mls/hr 04/12/18 16:00 04/14/18 09:34 Miscellaneous IVPB 100 mls/hr DAILY SARAH Administration Protocol Gentamicin Sulfate 80 mg/ 102 mls @ 100 mls/hr 04/12/18 22:15 04/14/18 13:25 Sodium Chloride IVPB 100 mls/hr Q8H SARAH Administration Protocol Meropenem 1 gm/ Sodium 100 mls @ 100 mls/hr 04/13/18 16:00 04/14/18 16:36 Chloride IVPB 100 mls/hr Q8H SARAH Administration Protocol Dextrose/Sodium Chloride 1,000 mls @ 100 mls/hr 04/13/18 17:00 04/14/18 12:31 Dextrose 5%/0.9% Ns 1000 Ml IV Not Given .Q10H SARAH Morphine Sulfate 2 mg 04/13/18 19:18 04/14/18 12:23 Morphine IV 2 mg Q2H PRN Administration Pain, moderate (4-7) Nystatin 5 ml 04/12/18 22:00 04/14/18 18:33 Nystatin Oral Susp PO 5 ml QID SARAH Administration Pantoprazole Sodium 40 mg 04/11/18 20:30 04/14/18 08:17 Protonix Inj IVP 40 mg Q12H SARAH Administration Potassium Chloride 40 meq 04/14/18 11:30 04/14/18 12:04 K-Dur 20 Meq Er Tab PO 40 meq DAILY SARAH Administration Saliva Substitute 10 ml 04/12/18 00:00 04/14/18 18:33 First Magic Mouthwash PO 10 ml Q6 SARAH Administration - Patient Studies Lab Studies: Microbiology Studies 04/11/18 12:32 Blood Culture - Final Blood Gram Stain - Final 04/11/18 11:00 Blood Culture - Preliminary Blood NO GROWTH AFTER 3 DAYS 04/12/18 08:00 Stool Culture - Final Stool NO SALMONELLA, SHIGELLA OR CAMPYLOBACTER ISOLATED. Lab Studies 04/14/18 04/14/18 04/14/18 Range/Units 16:48 11:10 07:24 WBC (4.8-10.8) K/uL RBC (3.80-5.20) Mil/uL Hgb (11.0-16.0) g/dL Hct (34.0-47.0) % MCV (81.0-99.0) fL MCH (27.0-31.0) pg MCHC (33.0-37.0) g/dL RDW (11.5-14.5) % Plt Count (130-400) K/uL MPV (7.2-11.7) fL Neut % (Auto) (50.0-75.0) % Lymph % (Auto) (20.0-40.0) % Bee % (Auto) (0.0-10.0) % Eos % (Auto) (0.0-4.0) % Baso % (Auto) (0.0-2.0) % Neut # (Auto) (1.8-7.0) K/uL Lymph # (Auto) (1.0-4.3) K/uL Bee # (Auto) (0.0-0.8) K/uL Eos # (Auto) (0.0-0.7) K/uL Baso # (Auto) (0.0-0.2) K/uL Sodium (132-148) mmol/L Potassium (3.6-5.2) mmol/L Chloride (98-107) mmol/L Carbon Dioxide (22-30) mmol/L Anion Gap (10-20) BUN (7-17) mg/dL Creatinine (0.7-1.2) mg/dL Est GFR ( Amer) Est GFR (Non-Af Amer) POC Glucose (mg/dL) 87 91 83 (65-110) mg/dL Random Glucose (65-105) mg/dL Calcium (8.6-10.4) mg/dl Phosphorus (2.5-4.5) mg/dL Magnesium (1.6-2.3) mg/dL Total Bilirubin (0.2-1.3) mg/dL AST (14-36) U/L ALT (9-52) U/L Alkaline Phosphatase (38-126) U/L Total Protein (6.3-8.3) g/dL Albumin (3.5-5.0) g/dL Globulin (2.2-3.9) gm/dL Albumin/Globulin Ratio (1.0-2.1) Blood Type Antibody Screen 04/14/18 04/14/18 04/13/18 Range/Units 06:26 06:26 21:25 WBC 2.3 L (4.8-10.8) K/uL RBC 2.67 L (3.80-5.20) Mil/uL Hgb 7.3 L (11.0-16.0) g/dL Hct 22.0 L (34.0-47.0) % MCV 82.5 (81.0-99.0) fL MCH 27.3 (27.0-31.0) pg MCHC 33.1 (33.0-37.0) g/dL RDW 18.5 H (11.5-14.5) % Plt Count 41 L (130-400) K/uL MPV 8.2 (7.2-11.7) fL Neut % (Auto) 76.5 H (50.0-75.0) % Lymph % (Auto) 15.1 L (20.0-40.0) % Bee % (Auto) 8.1 (0.0-10.0) % Eos % (Auto) 0.1 (0.0-4.0) % Baso % (Auto) 0.2 (0.0-2.0) % Neut # (Auto) 1.7 L (1.8-7.0) K/uL Lymph # (Auto) 0.3 L (1.0-4.3) K/uL Bee # (Auto) 0.2 (0.0-0.8) K/uL Eos # (Auto) 0.0 (0.0-0.7) K/uL Baso # (Auto) 0.0 (0.0-0.2) K/uL Sodium 137 (132-148) mmol/L Potassium 2.9 L (3.6-5.2) mmol/L Chloride 102 (98-107) mmol/L Carbon Dioxide 28 (22-30) mmol/L Anion Gap 10 (10-20) BUN 6 L (7-17) mg/dL Creatinine 0.3 L (0.7-1.2) mg/dL Est GFR ( Amer) > 60 Est GFR (Non-Af Amer) > 60 POC Glucose (mg/dL) 112 H (65-110) mg/dL Random Glucose 88 (65-105) mg/dL Calcium 7.2 L (8.6-10.4) mg/dl Phosphorus 2.5 (2.5-4.5) mg/dL Magnesium 1.5 L (1.6-2.3) mg/dL Total Bilirubin 0.5 (0.2-1.3) mg/dL AST 13 L D (14-36) U/L ALT 24 (9-52) U/L Alkaline Phosphatase 70 (38-126) U/L Total Protein 5.3 L (6.3-8.3) g/dL Albumin 2.5 L (3.5-5.0) g/dL Globulin 2.8 (2.2-3.9) gm/dL Albumin/Globulin Ratio 0.9 L (1.0-2.1) Blood Type Antibody Screen 04/11/18 Range/Units 17:57 WBC (4.8-10.8) K/uL RBC (3.80-5.20) Mil/uL Hgb (11.0-16.0) g/dL Hct (34.0-47.0) % MCV (81.0-99.0) fL MCH (27.0-31.0) pg MCHC (33.0-37.0) g/dL RDW (11.5-14.5) % Plt Count (130-400) K/uL MPV (7.2-11.7) fL Neut % (Auto) (50.0-75.0) % Lymph % (Auto) (20.0-40.0) % Bee % (Auto) (0.0-10.0) % Eos % (Auto) (0.0-4.0) % Baso % (Auto) (0.0-2.0) % Neut # (Auto) (1.8-7.0) K/uL Lymph # (Auto) (1.0-4.3) K/uL Bee # (Auto) (0.0-0.8) K/uL Eos # (Auto) (0.0-0.7) K/uL Baso # (Auto) (0.0-0.2) K/uL Sodium (132-148) mmol/L Potassium (3.6-5.2) mmol/L Chloride (98-107) mmol/L Carbon Dioxide (22-30) mmol/L Anion Gap (10-20) BUN (7-17) mg/dL Creatinine (0.7-1.2) mg/dL Est GFR ( Amer) Est GFR (Non-Af Amer) POC Glucose (mg/dL) (65-110) mg/dL Random Glucose (65-105) mg/dL Calcium (8.6-10.4) mg/dl Phosphorus (2.5-4.5) mg/dL Magnesium (1.6-2.3) mg/dL Total Bilirubin (0.2-1.3) mg/dL AST (14-36) U/L ALT (9-52) U/L Alkaline Phosphatase (38-126) U/L Total Protein (6.3-8.3) g/dL Albumin (3.5-5.0) g/dL Globulin (2.2-3.9) gm/dL Albumin/Globulin Ratio (1.0-2.1) Blood Type O POSITIVE Antibody Screen Negative Laboratory Results - last 24 hr 04/11/18 04/13/18 04/14/18 17:57 21:25 06:26 WBC 2.3 L RBC 2.67 L Hgb 7.3 L Hct 22.0 L MCV 82.5 MCH 27.3 MCHC 33.1 RDW 18.5 H Plt Count 41 L MPV 8.2 Neut % (Auto) 76.5 H Lymph % (Auto) 15.1 L Bee % (Auto) 8.1 Eos % (Auto) 0.1 Baso % (Auto) 0.2 Neut # (Auto) 1.7 L Lymph # (Auto) 0.3 L Bee # (Auto) 0.2 Eos # (Auto) 0.0 Baso # (Auto) 0.0 Sodium Potassium Chloride Carbon Dioxide Anion Gap BUN Creatinine Est GFR ( Amer) Est GFR (Non-Af Amer) POC Glucose (mg/dL) 112 H Random Glucose Calcium Phosphorus Magnesium Total Bilirubin AST ALT Alkaline Phosphatase Total Protein Albumin Globulin Albumin/Globulin Ratio Blood Type O POSITIVE Antibody Screen Negative 04/14/18 04/14/18 04/14/18 06:26 07:24 11:10 WBC RBC Hgb Hct MCV MCH MCHC RDW Plt Count MPV Neut % (Auto) Lymph % (Auto) Bee % (Auto) Eos % (Auto) Baso % (Auto) Neut # (Auto) Lymph # (Auto) Bee # (Auto) Eos # (Auto) Baso # (Auto) Sodium 137 Potassium 2.9 L Chloride 102 Carbon Dioxide 28 Anion Gap 10 BUN 6 L Creatinine 0.3 L Est GFR ( Amer) > 60 Est GFR (Non-Af Amer) > 60 POC Glucose (mg/dL) 83 91 Random Glucose 88 Calcium 7.2 L Phosphorus 2.5 Magnesium 1.5 L Total Bilirubin 0.5 AST 13 L D ALT 24 Alkaline Phosphatase 70 Total Protein 5.3 L Albumin 2.5 L Globulin 2.8 Albumin/Globulin Ratio 0.9 L Blood Type Antibody Screen 04/14/18 16:48 WBC RBC Hgb Hct MCV MCH MCHC RDW Plt Count MPV Neut % (Auto) Lymph % (Auto) Bee % (Auto) Eos % (Auto) Baso % (Auto) Neut # (Auto) Lymph # (Auto) Bee # (Auto) Eos # (Auto) Baso # (Auto) Sodium Potassium Chloride Carbon Dioxide Anion Gap BUN Creatinine Est GFR ( Amer) Est GFR (Non-Af Amer) POC Glucose (mg/dL) 87 Random Glucose Calcium Phosphorus Magnesium Total Bilirubin AST ALT Alkaline Phosphatase Total Protein Albumin Globulin Albumin/Globulin Ratio Blood Type Antibody Screen Critical Care Progress Note - Nutrition Nutrition: Nutrition Category Date Time Status Liquid Diet [DIET] Diets 04/13/18 Lunch Active Attending/Attestation - Attestation I have personally seen and examined this patient.: Yes I have fully participated in the care of the patient.: Yes I have reviewed all pertinent clinical information: Yes Notes (Text): 04/14/18 20:48 Today: April The Patient was seen and examined at the bedside, Medical records reviewed, and management issues were discussed and formulated with the house staff. I have reviewed all the relevant clinical, laboratory, hemodynamic, radiographic data and medications Events reviewed Pain issues, skin care, head of the bed elevation, glycemic control were addressed. Agree with above resident's assessment and treatment plans of care as transcribed in Dr. Tate's note.
--- NOTE | 2018-04-14 19:31 | CP.PCM.PN ---
Subjective - Date & Time of Evaluation Date of Evaluation: 04/14/18 Time of Evaluation: 16:00 - Subjective Subjective: dictated Objective - Vital Signs/Intake and Output Vital Signs (last 24 hours): Temp Pulse Resp BP Pulse Ox 98.3 F 95 H 20 107/61 100 04/14/18 18:56 04/14/18 18:56 04/14/18 18:56 04/14/18 18:56 04/14/18 18:24 Intake and Output: 04/14/18 04/15/18 18:59 06:59 Intake Total 1935 Output Total 250 Balance 1685 - Medications Medications: Current Medications Vancomycin/Sodium Chloride (Vancomycin 1 Gm/Ns 200 Ml) 1 gm in 200 mls @ 133.333 mls/hr IVPB Q12H SARAH; Protocol Stop: 04/17/18 01:56 Last Admin: 04/14/18 13:18 Dose: 133.333 mls/hr Fluconazole 100 mg/ (Miscellaneous) 50 mls @ 100 mls/hr IVPB DAILY SARAH; Protocol Last Admin: 04/14/18 09:34 Dose: 100 mls/hr Gentamicin Sulfate 80 mg/ (Sodium Chloride) 102 mls @ 100 mls/hr IVPB Q8H SARAH; Protocol Last Admin: 04/14/18 13:25 Dose: 100 mls/hr Meropenem 1 gm/ Sodium (Chloride) 100 mls @ 100 mls/hr IVPB Q8H SARAH; Protocol Last Admin: 04/14/18 16:36 Dose: 100 mls/hr Dextrose/Sodium Chloride (Dextrose 5%/0.9% Ns 1000 Ml) 1,000 mls @ 100 mls/hr IV .Q10H SARAH Last Admin: 04/14/18 12:31 Dose: Not Given Morphine Sulfate (Morphine) 2 mg IV Q2H PRN PRN Reason: Pain, moderate (4-7) Last Admin: 04/14/18 12:23 Dose: 2 mg Nystatin (Nystatin Oral Susp) 5 ml PO QID SARAH Last Admin: 04/14/18 18:33 Dose: 5 ml Pantoprazole Sodium (Protonix Inj) 40 mg IVP Q12H SARAH Last Admin: 04/14/18 08:17 Dose: 40 mg Potassium Chloride (K-Dur 20 Meq Er Tab) 40 meq PO DAILY SARAH Last Admin: 04/14/18 12:04 Dose: 40 meq Saliva Substitute (First Magic Mouthwash) 10 ml PO Q6 SARAH Last Admin: 04/14/18 18:33 Dose: 10 ml - Labs Labs: 04/14/18 06:26 04/14/18 06:26 PT 16.8 SECONDS (9.7-12.2) H 04/12/18 06:10 INR 1.5 04/12/18 06:10 APTT 28 SECONDS (21-34) 04/12/18 06:10
--- NOTE | 2018-04-14 22:19 | CP.PCM.PN ---
Subjective - Date & Time of Evaluation Date of Evaluation: 04/14/18 Time of Evaluation: 18:00 - Subjective Subjective: Feeling better, still has diarrhea Objective - Vital Signs/Intake and Output Vital Signs (last 24 hours): Temp Pulse Resp BP Pulse Ox 98.5 F 96 H 17 125/73 100 04/14/18 20:55 04/14/18 21:54 04/14/18 21:54 04/14/18 21:54 04/14/18 21:54 Intake and Output: 04/14/18 04/15/18 18:59 06:59 Intake Total 1935 475 Output Total 250 200 Balance 1685 275 - Medications Medications: Current Medications Vancomycin/Sodium Chloride (Vancomycin 1 Gm/Ns 200 Ml) 1 gm in 200 mls @ 133.333 mls/hr IVPB Q12H SARAH; Protocol Stop: 04/17/18 01:56 Last Admin: 04/14/18 13:18 Dose: 133.333 mls/hr Fluconazole 100 mg/ (Miscellaneous) 50 mls @ 100 mls/hr IVPB DAILY SARAH; Protocol Last Admin: 04/14/18 09:34 Dose: 100 mls/hr Gentamicin Sulfate 80 mg/ (Sodium Chloride) 102 mls @ 100 mls/hr IVPB Q8H SARAH; Protocol Last Admin: 04/14/18 21:51 Dose: 100 mls/hr Meropenem 1 gm/ Sodium (Chloride) 100 mls @ 100 mls/hr IVPB Q8H SARAH; Protocol Last Admin: 04/14/18 16:36 Dose: 100 mls/hr Dextrose/Sodium Chloride (Dextrose 5%/0.9% Ns 1000 Ml) 1,000 mls @ 100 mls/hr IV .Q10H SARAH Last Admin: 04/14/18 12:31 Dose: Not Given Morphine Sulfate (Morphine) 2 mg IV Q2H PRN PRN Reason: Pain, moderate (4-7) Last Admin: 04/14/18 12:23 Dose: 2 mg Nystatin (Nystatin Oral Susp) 5 ml PO QID SARAH Last Admin: 04/14/18 21:52 Dose: 5 ml Pantoprazole Sodium (Protonix Inj) 40 mg IVP Q12H SARAH Last Admin: 04/14/18 20:52 Dose: 40 mg Potassium Chloride (K-Dur 20 Meq Er Tab) 40 meq PO DAILY [facility] Last Admin: 04/14/18 12:04 Dose: 40 meq Saliva Substitute (First Magic Mouthwash) 10 ml PO Q6 SARAH Last Admin: 04/14/18 18:33 Dose: 10 ml - Labs Labs: 04/14/18 06:26 04/14/18 06:26 PT 16.8 SECONDS (9.7-12.2) H 04/12/18 06:10 INR 1.5 04/12/18 06:10 APTT 28 SECONDS (21-34) 04/12/18 06:10 - Head Exam Head Exam: ATRAUMATIC - Eye Exam Eye Exam: Normal appearance - ENT Exam ENT Exam: Mucous Membranes Dry - Respiratory Exam Respiratory Exam: NORMAL BREATHING PATTERN - Cardiovascular Exam Cardiovascular Exam: +S1, +S2 - GI/Abdominal Exam GI & Abdominal Exam: Normal Bowel Sounds - Extremities Exam Extremities Exam: Pedal Edema - Neurological Exam Neurological Exam: Oriented x3 - Psychiatric Exam Psychiatric exam: Normal Affect, Normal Mood - Skin Skin Exam: Warm Assessment and Plan (1) Pancytopenia Assessment & Plan: secondary to chemotherapy s/p growth factor support transfusion support Status: Acute (2) Breast cancer Assessment & Plan: stage IV outpatient chemotherapy Status: Acute
[2018-04-15] MEDS: Vancomycin 1 gm/NS 200 ml 1 GM/200 ML BAG IVPB SCH ×2 (01:15→13:34)
[2018-04-15] MEDS: Dextrose 5%/0.9% NS 1,000 ML IV SCH ×4 (05:29→18:49)
[2018-04-15] MEDS: Mag&Al/Simet/Diphen/Lido 237 ML KIT PO SCH ×3 (05:43→17:31)
[2018-04-15 06:29] LABS: BASO % 0.1 % (0.0-2.0); HEMOGLOBIN 8.3 g/dL (11.0-16.0); LYMPH # 0.4 K/uL (1.0-4.3); LYMPH % 15.6 % (20.0-40.0); MEAN CELL VOLUME 83.6 fL (81.0-99.0); MEAN CORPUSCULAR HEMOGLOBIN 27.8 pg (27.0-31.0); MEAN CORPUSCULAR HGB CONC 33.2 g/dL (33.0-37.0); MEAN PLATELET VOLUME 7.6 fL (7.2-11.7); MONO # 0.3 K/uL (0.0-0.8); NEUT # 1.9 K/uL (1.8-7.0); NEUT % 71.3 % (50.0-75.0); RED CELL DISTRIBUTION WIDTH 17.2 % (11.5-14.5); WHITE BLOOD COUNT 2.6 K/uL (4.8-10.8)
--- NOTE | 2018-04-15 06:34 | PN ---
DATE: 04/14/2018 SUBJECTIVE: The patient was drowsy as she has been given morphine as she was in pain before. She is drowsy at this time. She is on medicines. She has been getting treatment to her sacral wounds and had no new complaints before according to the nurse and remains sedated. PHYSICAL EXAMINATION: VITAL SIGNS: T-max today was 98.2, pulse is 94, blood pressure 106/64, respirations are 10. Input and output are noted. HEENT: Head is atraumatic and normocephalic. NECK: Supple. LUNGS: Clear. HEART: S1 and S2 are regular. ABDOMEN: Soft, nontender. She does have vague tenderness. She stopped bleeding. Rectal bleeding decreased today. She was getting FFP and she was also for packed RBCs. EXTREMITIES: Bilaterally have no pitting edema and obesity. She has a sacral decubitus. She also has left subclavian line. LABORATORY DATA: Labs are noted. Labs show white count is 2.3, hemoglobin is 7.3, hematocrit is , platelet count is 41, it decreased. She has a potassium of 2.9 which has been supplemented. ASSESSMENT AND PLAN: Her culture showed gram negative. The wound was Staphylococcus aureus and urine culture is yeast. I read the blood culture. It had gram negative because it is Bacteroidaceae. This is anaerobic probably from the abdominal source that came out positive, and so we will make sure she is covered for that. She also has Staphylococcus aureus in the wound, and she has yeast in the urine. We will have to repeat the cultures again and let me see what the medication she is on. We are covering with Merrem, gentamicin, fluconazole, and vancomycin. She is covered for anaerobes. So at this point, we will repeat the blood cultures tomorrow to make sure this Bacteroides is not the problem; it probably came from the . She was also bleeding. She had radiation and could have been the possibilities of . We need a blood culture. We will continue same treatment for now. We will follow. Jacqueline Saez MD
[2018-04-15 06:54] LABS: ALB/GLOB RATIO 0.9 (1.0-2.1); ALBUMIN 2.4 g/dL (3.5-5.0); ALT/SGPT 28 U/L (9-52); AST/SGOT 16 U/L (14-36); BLOOD UREA NITROGEN 5 mg/dL (7-17); CALCIUM 7.2 mg/dl (8.6-10.4); GFR NON-AFRICAN AMERICAN > 60
[2018-04-15] MEDS: Meropenem 1 GM in Sodium Chloride 0.9% 100 ML IVPB SCH ×2 (07:48→16:54)
[2018-04-15] MEDS: Magnesium Sulfate 1 gm in D5W 1 GM/100 ML BAG IVPB SCH ×2 (07:49→08:37)
[2018-04-15] MEDS ORDERED: Potassium Phosphate 15 MMOLE in Sodium Chloride 0.9% 250 ML IVPB ONE (08:00)
[2018-04-15] MEDS: Fluconazole IV 200mg/100 ml NS 100 MG in Premixed IV 1 EA IVPB SCH (09:27)
[2018-04-15] MEDS: Nystatin 100,000 Units/ml Oral Susp 5 ml UD PO SCH ×4 (10:35→22:01)
--- NOTE | 2018-04-15 14:02 | CP.CCUPN ---
<Bebeto,Madmeagan - Last Filed: 04/15/18 13:58> CCU Subjective - Physician Review Subjective (Free Text): 04/14/18 15:59 Critical Care Progress Note for Dr. Mitchell's service Patient seen and examined at bedside. Patient complains of abdomen pain. Patien denies fevers, chills, chest pain, sob, n/v, constipation or diarrhea, and dysuria. No plan for EGD. 04/15/18 14:03 Critical Care Time Spent (in minutes): 35 CCU Objective - Vital Signs / Intake & Output Vital Signs (Last 4 hours): Vital Signs Temp Pulse Resp BP Pulse Ox 04/15/18 13:17 82 16 108/65 96 04/15/18 13:00 85 18 99 04/15/18 12:19 83 16 119/83 84 L 04/15/18 12:00 97.9 F 86 17 100 04/15/18 11:17 93 H 19 123/82 100 04/15/18 11:00 88 26 H 128/83 100 04/15/18 10:45 90 17 127/86 100 04/15/18 10:00 90 18 100 Intake and Output (Last 8hrs): Intake & Output 04/14/18 04/15/18 04/15/18 22:59 06:59 14:59 Intake Total 0910 784 1680.5 Output Total 200 400 Balance 563 601 5231.5 Weight 220 lb 8 oz Intake: Intake, IV Amount 632 735 9650.5 Left Port-A-Cath 300 900 650 Left PortaCath side port 627.5 Oral 150 50 150 Blood Product 540 Apheresis Plts Acda Lr 215 Irr Unit [id number] Red Blood Cells Cpd As1 325 Lr Unit [id number] Other 120 Apheresis Plts Acda Lr 50 Irr Unit [id number] Red Blood Cells Cpd As1 70 Lr Unit [id number] Output: Urine 200 400 Urine, Voided 200 400 Other: # Voids Urine, Voided 0 0 0 # Bowel Movements 0 1 0 - Physical Exam Head: Positive for: Atraumatic, Normocephalic Nose (External): Positive for: Atraumatic Neck: Negative for: Lymphadenopathy Respiratory/Chest: Positive for: Clear to Auscultation (patient got agitated when attempting to lean her forward, so only listened to lung clements anteriorly), Good Air Exchange. Negative for: Respiratory Distress, Accessory Muscle Use Cardiovascular: Positive for: Regular Rate and Rhythm (mild tachycardia), Normal S1, S2 Abdomen: Positive for: Tenderness. Negative for: Normal Bowel Sounds (hypoactive bowel sounds), Peritoneal Signs, Rebound Rectal: Positive for: Other (deferred) Upper Extremity: Positive for: Edema (nonpitting edema), Other (hands cool to touch. 1/5 UE strength.). Negative for: Normal Inspection Lower Extremity: Positive for: Edema (nonpitting). Negative for: Normal Inspection Neurological: Positive for: GCS=15 Skin: Positive for: Other (left portacath subclavian) Psychiatric: Positive for: Alert, Oriented x 3, Depressed Mood (patient tearful at times of exam) - Medications Active Medications: Active Medications Generic Name Dose Route Start Last Admin Trade Name Freq PRN Reason Stop Dose Admin Vancomycin/Sodium Chloride 1 gm in 200 mls @ 133.333 mls/hr 04/12/18 01:55 04/15/18 13:34 Vancomycin 1 Gm/Ns 200 Ml IVPB 04/17/18 01:56 133.333 mls/hr Q12H SARAH Administration Protocol Fluconazole 100 mg/ 50 mls @ 100 mls/hr 04/12/18 16:00 04/15/18 09:27 Miscellaneous IVPB 100 mls/hr DAILY SARAH Administration Protocol Gentamicin Sulfate 80 mg/ 102 mls @ 100 mls/hr 04/12/18 22:15 04/15/18 13:34 Sodium Chloride IVPB 100 mls/hr Q8H SARAH Administration Protocol Meropenem 1 gm/ Sodium 100 mls @ 100 mls/hr 04/13/18 16:00 04/15/18 07:48 Chloride IVPB 100 mls/hr Q8H SARAH Administration Protocol Dextrose/Sodium Chloride 1,000 mls @ 100 mls/hr 04/13/18 17:00 04/15/18 09:27 Dextrose 5%/0.9% Ns 1000 Ml IV Not Given .Q10H SARAH Potassium Phosphate 15 mmole/ 255 mls @ 42.5 mls/hr 04/15/18 08:00 04/15/18 09:28 Sodium Chloride IVPB 04/15/18 13:59 42.5 mls/hr ONCE ONE Administration Midodrine 5 mg 04/15/18 10:00 04/15/18 13:34 Proamatine PO 5 mg TID SARAH Administration Morphine Sulfate 2 mg 04/13/18 19:18 04/15/18 06:17 Morphine IV 2 mg Q2H PRN Administration Pain, moderate (4-7) Nystatin 5 ml 04/12/18 22:00 04/15/18 13:34 Nystatin Oral Susp PO 5 ml QID SARAH Administration Pantoprazole Sodium 40 mg 04/11/18 20:30 04/15/18 07:48 Protonix Inj IVP 40 mg Q12H SARAH Administration Saliva Substitute 10 ml 04/12/18 00:00 04/15/18 11:46 First Magic Mouthwash PO 10 ml Q6 SARAH Administration - Patient Studies Lab Studies: Microbiology Studies 04/11/18 11:00 Blood Culture - Preliminary Blood NO GROWTH AFTER 4 DAYS 04/11/18 12:32 Blood Culture - Final Blood Gram Stain - Final 04/12/18 08:00 Stool Culture - Final Stool NO SALMONELLA, SHIGELLA OR CAMPYLOBACTER ISOLATED. Lab Studies 04/15/18 04/15/18 04/15/18 Range/Units 11:33 07:16 06:21 WBC (4.8-10.8) K/uL RBC (3.80-5.20) Mil/uL Hgb (11.0-16.0) g/dL Hct (34.0-47.0) % MCV (81.0-99.0) fL MCH (27.0-31.0) pg MCHC (33.0-37.0) g/dL RDW (11.5-14.5) % Plt Count (130-400) K/uL MPV (7.2-11.7) fL Neut % (Auto) (50.0-75.0) % Lymph % (Auto) (20.0-40.0) % [place] % (Auto) (0.0-10.0) % Eos % (Auto) (0.0-4.0) % Baso % (Auto) (0.0-2.0) % Neut # (Auto) (1.8-7.0) K/uL Lymph # (Auto) (1.0-4.3) K/uL [place] # (Auto) (0.0-0.8) K/uL Eos # (Auto) (0.0-0.7) K/uL Baso # (Auto) (0.0-0.2) K/uL Sodium 136 (132-148) mmol/L Potassium 3.1 L (3.6-5.2) mmol/L Chloride 102 (98-107) mmol/L Carbon Dioxide 28 (22-30) mmol/L Anion Gap 9 L (10-20) BUN 5 L (7-17) mg/dL Creatinine 0.3 L (0.7-1.2) mg/dL Est GFR ( Amer) > 60 Est GFR (Non-Af Amer) > 60 POC Glucose (mg/dL) 91 86 (65-110) mg/dL Random Glucose 90 (65-105) mg/dL Calcium 7.2 L (8.6-10.4) mg/dl Phosphorus 2.1 L (2.5-4.5) mg/dL Magnesium 1.1 L (1.6-2.3) mg/dL Total Bilirubin 0.9 (0.2-1.3) mg/dL AST 16 (14-36) U/L ALT 28 (9-52) U/L Alkaline Phosphatase 65 (38-126) U/L Total Protein 5.2 L (6.3-8.3) g/dL Albumin 2.4 L (3.5-5.0) g/dL Globulin 2.8 (2.2-3.9) gm/dL Albumin/Globulin Ratio 0.9 L (1.0-2.1) Blood Type Antibody Screen 04/15/18 04/15/18 04/14/18 Range/Units 06:21 04:00 21:38 WBC 2.6 L (4.8-10.8) K/uL RBC 3.00 L (3.80-5.20) Mil/uL Hgb 8.3 L (11.0-16.0) g/dL Hct 25.1 L (34.0-47.0) % MCV 83.6 (81.0-99.0) fL MCH 27.8 (27.0-31.0) pg MCHC 33.2 (33.0-37.0) g/dL RDW 17.2 H (11.5-14.5) % Plt Count 41 L (130-400) K/uL MPV 7.6 (7.2-11.7) fL Neut % (Auto) 71.3 (50.0-75.0) % Lymph % (Auto) 15.6 L (20.0-40.0) % [place] % (Auto) 13.0 H (0.0-10.0) % Eos % (Auto) 0.0 (0.0-4.0) % Baso % (Auto) 0.1 (0.0-2.0) % Neut # (Auto) 1.9 (1.8-7.0) K/uL Lymph # (Auto) 0.4 L (1.0-4.3) K/uL [place] # (Auto) 0.3 (0.0-0.8) K/uL Eos # (Auto) 0.0 (0.0-0.7) K/uL Baso # (Auto) 0.0 (0.0-0.2) K/uL Sodium (132-148) mmol/L Potassium (3.6-5.2) mmol/L Chloride (98-107) mmol/L Carbon Dioxide (22-30) mmol/L Anion Gap (10-20) BUN (7-17) mg/dL Creatinine (0.7-1.2) mg/dL Est GFR ( Amer) Est GFR (Non-Af Amer) POC Glucose (mg/dL) 91 (65-110) mg/dL Random Glucose (65-105) mg/dL Calcium (8.6-10.4) mg/dl Phosphorus (2.5-4.5) mg/dL Magnesium (1.6-2.3) mg/dL Total Bilirubin (0.2-1.3) mg/dL AST (14-36) U/L ALT (9-52) U/L Alkaline Phosphatase (38-126) U/L Total Protein (6.3-8.3) g/dL Albumin (3.5-5.0) g/dL Globulin (2.2-3.9) gm/dL Albumin/Globulin Ratio (1.0-2.1) Blood Type O POSITIVE Antibody Screen Negative 04/14/18 04/14/18 04/11/18 Range/Units 16:48 11:10 17:57 WBC (4.8-10.8) K/uL RBC (3.80-5.20) Mil/uL Hgb (11.0-16.0) g/dL Hct (34.0-47.0) % MCV (81.0-99.0) fL MCH (27.0-31.0) pg MCHC (33.0-37.0) g/dL RDW (11.5-14.5) % Plt Count (130-400) K/uL MPV (7.2-11.7) fL Neut % (Auto) (50.0-75.0) % Lymph % (Auto) (20.0-40.0) % [place] % (Auto) (0.0-10.0) % Eos % (Auto) (0.0-4.0) % Baso % (Auto) (0.0-2.0) % Neut # (Auto) (1.8-7.0) K/uL Lymph # (Auto) (1.0-4.3) K/uL [place] # (Auto) (0.0-0.8) K/uL Eos # (Auto) (0.0-0.7) K/uL Baso # (Auto) (0.0-0.2) K/uL Sodium (132-148) mmol/L Potassium (3.6-5.2) mmol/L Chloride (98-107) mmol/L Carbon Dioxide (22-30) mmol/L Anion Gap (10-20) BUN (7-17) mg/dL Creatinine (0.7-1.2) mg/dL Est GFR ( Amer) Est GFR (Non-Af Amer) POC Glucose (mg/dL) 87 91 (65-110) mg/dL Random Glucose (65-105) mg/dL Calcium (8.6-10.4) mg/dl Phosphorus (2.5-4.5) mg/dL Magnesium (1.6-2.3) mg/dL Total Bilirubin (0.2-1.3) mg/dL AST (14-36) U/L ALT (9-52) U/L Alkaline Phosphatase (38-126) U/L Total Protein (6.3-8.3) g/dL Albumin (3.5-5.0) g/dL Globulin (2.2-3.9) gm/dL Albumin/Globulin Ratio (1.0-2.1) Blood Type O POSITIVE Antibody Screen Negative Laboratory Results - last 24 hr 04/11/18 04/14/18 04/14/18 17:57 11:10 16:48 WBC RBC Hgb Hct MCV MCH MCHC RDW Plt Count MPV Neut % (Auto) Lymph % (Auto) [place] % (Auto) Eos % (Auto) Baso % (Auto) Neut # (Auto) Lymph # (Auto) [place] # (Auto) Eos # (Auto) Baso # (Auto) Sodium Potassium Chloride Carbon Dioxide Anion Gap BUN Creatinine Est GFR ( Amer) Est GFR (Non-Af Amer) POC Glucose (mg/dL) 91 87 Random Glucose Calcium Phosphorus Magnesium Total Bilirubin AST ALT Alkaline Phosphatase Total Protein Albumin Globulin Albumin/Globulin Ratio Blood Type O POSITIVE Antibody Screen Negative 04/14/18 04/15/18 04/15/18 21:38 04:00 06:21 WBC 2.6 L RBC 3.00 L Hgb 8.3 L Hct 25.1 L MCV 83.6 MCH 27.8 MCHC 33.2 RDW 17.2 H Plt Count 41 L MPV 7.6 Neut % (Auto) 71.3 Lymph % (Auto) 15.6 L [place] % (Auto) 13.0 H Eos % (Auto) 0.0 Baso % (Auto) 0.1 Neut # (Auto) 1.9 Lymph # (Auto) 0.4 L [place] # (Auto) 0.3 Eos # (Auto) 0.0 Baso # (Auto) 0.0 Sodium Potassium Chloride Carbon Dioxide Anion Gap BUN Creatinine Est GFR ( Amer) Est GFR (Non-Af Amer) POC Glucose (mg/dL) 91 Random Glucose Calcium Phosphorus Magnesium Total Bilirubin AST ALT Alkaline Phosphatase Total Protein Albumin Globulin Albumin/Globulin Ratio Blood Type O POSITIVE Antibody Screen Negative 04/15/18 04/15/18 04/15/18 06:21 07:16 11:33 WBC RBC Hgb Hct MCV MCH MCHC RDW Plt Count MPV Neut % (Auto) Lymph % (Auto) [place] % (Auto) Eos % (Auto) Baso % (Auto) Neut # (Auto) Lymph # (Auto) [place] # (Auto) Eos # (Auto) Baso # (Auto) Sodium 136 Potassium 3.1 L Chloride 102 Carbon Dioxide 28 Anion Gap 9 L BUN 5 L Creatinine 0.3 L Est GFR ( Amer) > 60 Est GFR (Non-Af Amer) > 60 POC Glucose (mg/dL) 86 91 Random Glucose 90 Calcium 7.2 L Phosphorus 2.1 L Magnesium 1.1 L Total Bilirubin 0.9 AST 16 ALT 28 Alkaline Phosphatase 65 Total Protein 5.2 L Albumin 2.4 L Globulin 2.8 Albumin/Globulin Ratio 0.9 L Blood Type Antibody Screen Fingerstick Blood Sugar Results: 91 Review of Systems - Review of Systems Review of Systems: 12 point ROS obtained and noted in HPI Critical Care Progress Note - Prophylaxis GI Prophylaxis GI: PPI - Prophylaxis DVT Prophylaxis DVT: SCDs - Nutrition Nutrition: Nutrition Category Date Time Status Liquid Diet [DIET] Diets 04/13/18 Lunch Active Assessment/Plan - Assessment and Plan (Free Text) Assessment: Patient is a 58 yo female w/ PMH breast cancer w/ multiple mets to breast, lungs, and bone, asthma, htn admitted to ICU for GI bleed and abdominal pain with n/v. Neuro awake, alert, oriented communicative Pulm maintain spo2>[address] abd/pelvis- 8 mm right lower nodule; hx of mets to lung CV no acute issues Echo- normal LV function; EF 60-65 Midodrine GI no acute issues EGD deferred in setting of low platelets as per GI Liquid diet Endo no acute issues dextrose fluids Heme H&H stable Renal Dextrose 5 in NS @ 100 Repleted potassium, phosphorus, and magnesium as ordered ID + blood cx for bacteroides + urine cx for yeast species + wound culture for s. aureus Gentamicin Fluconazole Meorpenem Nystatin for thrush Vancomycin PRN: Morphine DVT ppx: SCDs, AC contraindicated in setting of bleed GI ppx: Protonix Disposition: consider downgrade to medical floors; continue further oncological management as per [place] and patient wishes Isiah Tate PGY-1 Medical Management d/w Dr. Mitchell <Jagruti Mitchell - Last Filed: 04/15/18 18:18> CCU Objective - Vital Signs / Intake & Output Vital Signs (Last 4 hours): Vital Signs Temp Pulse Resp BP Pulse Ox 04/15/18 17:17 99 H 19 102/61 100 04/15/18 17:00 100 H 21 99 04/15/18 16:17 96 H 20 99/64 L 98 04/15/18 16:00 98.5 F 94 H 20 100 04/15/18 15:55 91 H 21 108/68 100 04/15/18 15:00 90 18 99 Intake and Output (Last 8hrs): Intake & Output 04/15/18 04/15/18 04/15/18 06:59 14:59 22:59 Intake Total 950 1620.0 385.0 Output Total 400 Balance 950 1220.0 385.0 Weight 220 lb 8 oz Intake: Intake, IV Amount 900 1420.0 385.0 Left Port-A-Cath 900 750 300 Left PortaCath side port 670.0 85.0 Oral 50 200 0 Output: Urine 400 Urine, Voided 400 Other: # Voids Urine, Voided 0 0 0 # Bowel Movements 1 0 0 - Medications Active Medications: Active Medications Generic Name Dose Route Start Last Admin Trade Name Freq PRN Reason Stop Dose Admin Vancomycin/Sodium Chloride 1 gm in 200 mls @ 133.333 mls/hr 04/12/18 01:55 04/15/18 13:34 Vancomycin 1 Gm/Ns 200 Ml IVPB 04/17/18 01:56 133.333 mls/hr Q12H SARAH Administration Protocol Fluconazole 100 mg/ 50 mls @ 100 mls/hr 04/12/18 16:00 04/15/18 09:27 Miscellaneous IVPB 100 mls/hr DAILY SARAH Administration Protocol Gentamicin Sulfate 80 mg/ 102 mls @ 100 mls/hr 04/12/18 22:15 04/15/18 13:34 Sodium Chloride IVPB 100 mls/hr Q8H SARAH Administration Protocol Meropenem 1 gm/ Sodium 100 mls @ 100 mls/hr 04/13/18 16:00 04/15/18 16:54 Chloride IVPB 100 mls/hr Q8H SARAH Administration Protocol Dextrose/Sodium Chloride 1,000 mls @ 100 mls/hr 04/13/18 17:00 04/15/18 17:32 Dextrose 5%/0.9% Ns 1000 Ml IV 100 mls/hr .Q10H SARAH Administration Midodrine 5 mg 04/15/18 10:00 04/15/18 17:34 Proamatine PO 5 mg TID SARAH Administration Morphine Sulfate 2 mg 04/13/18 19:18 04/15/18 06:17 Morphine IV 2 mg Q2H PRN Administration Pain, moderate (4-7) Nystatin 5 ml 04/12/18 22:00 04/15/18 17:32 Nystatin Oral Susp PO 5 ml QID SARAH Administration Pantoprazole Sodium 40 mg 04/11/18 20:30 04/15/18 07:48 Protonix Inj IVP 40 mg Q12H SARAH Administration Saliva Substitute 10 ml 04/12/18 00:00 04/15/18 17:31 First Magic Mouthwash PO 10 ml Q6 SARAH Administration - Patient Studies Lab Studies: Microbiology Studies 04/11/18 11:00 Blood Culture - Preliminary Blood NO GROWTH AFTER 4 DAYS 04/11/18 12:32 Blood Culture - Final Blood Gram Stain - Final Lab Studies 04/15/18 04/15/18 04/15/18 Range/Units 16:03 11:33 07:16 WBC (4.8-10.8) K/uL RBC (3.80-5.20) Mil/uL Hgb (11.0-16.0) g/dL Hct (34.0-47.0) % MCV (81.0-99.0) fL MCH (27.0-31.0) pg MCHC (33.0-37.0) g/dL RDW (11.5-14.5) % Plt Count (130-400) K/uL MPV (7.2-11.7) fL Neut % (Auto) (50.0-75.0) % Lymph % (Auto) (20.0-40.0) % [place] % (Auto) (0.0-10.0) % Eos % (Auto) (0.0-4.0) % Baso % (Auto) (0.0-2.0) % Neut # (Auto) (1.8-7.0) K/uL Lymph # (Auto) (1.0-4.3) K/uL [place] # (Auto) (0.0-0.8) K/uL Eos # (Auto) (0.0-0.7) K/uL Baso # (Auto) (0.0-0.2) K/uL Sodium (132-148) mmol/L Potassium (3.6-5.2) mmol/L Chloride (98-107) mmol/L Carbon Dioxide (22-30) mmol/L Anion Gap (10-20) BUN (7-17) mg/dL Creatinine (0.7-1.2) mg/dL Est GFR ( Amer) Est GFR (Non-Af Amer) POC Glucose (mg/dL) 83 91 86 (65-110) mg/dL Random Glucose (65-105) mg/dL Calcium (8.6-10.4) mg/dl Phosphorus (2.5-4.5) mg/dL Magnesium (1.6-2.3) mg/dL Total Bilirubin (0.2-1.3) mg/dL AST (14-36) U/L ALT (9-52) U/L Alkaline Phosphatase (38-126) U/L Total Protein (6.3-8.3) g/dL Albumin (3.5-5.0) g/dL Globulin (2.2-3.9) gm/dL Albumin/Globulin Ratio (1.0-2.1) Blood Type Antibody Screen 04/15/18 04/15/18 04/15/18 Range/Units 06:21 06:21 04:00 WBC 2.6 L (4.8-10.8) K/uL RBC 3.00 L (3.80-5.20) Mil/uL Hgb 8.3 L (11.0-16.0) g/dL Hct 25.1 L (34.0-47.0) % MCV 83.6 (81.0-99.0) fL MCH 27.8 (27.0-31.0) pg MCHC 33.2 (33.0-37.0) g/dL RDW 17.2 H (11.5-14.5) % Plt Count 41 L (130-400) K/uL MPV 7.6 (7.2-11.7) fL Neut % (Auto) 71.3 (50.0-75.0) % Lymph % (Auto) 15.6 L (20.0-40.0) % [place] % (Auto) 13.0 H (0.0-10.0) % Eos % (Auto) 0.0 (0.0-4.0) % Baso % (Auto) 0.1 (0.0-2.0) % Neut # (Auto) 1.9 (1.8-7.0) K/uL Lymph # (Auto) 0.4 L (1.0-4.3) K/uL [place] # (Auto) 0.3 (0.0-0.8) K/uL Eos # (Auto) 0.0 (0.0-0.7) K/uL Baso # (Auto) 0.0 (0.0-0.2) K/uL Sodium 136 (132-148) mmol/L Potassium 3.1 L (3.6-5.2) mmol/L Chloride 102 (98-107) mmol/L Carbon Dioxide 28 (22-30) mmol/L Anion Gap 9 L (10-20) BUN 5 L (7-17) mg/dL Creatinine 0.3 L (0.7-1.2) mg/dL Est GFR ( Amer) > 60 Est GFR (Non-Af Amer) > 60 POC Glucose (mg/dL) (65-110) mg/dL Random Glucose 90 (65-105) mg/dL Calcium 7.2 L (8.6-10.4) mg/dl Phosphorus 2.1 L (2.5-4.5) mg/dL Magnesium 1.1 L (1.6-2.3) mg/dL Total Bilirubin 0.9 (0.2-1.3) mg/dL AST 16 (14-36) U/L ALT 28 (9-52) U/L Alkaline Phosphatase 65 (38-126) U/L Total Protein 5.2 L (6.3-8.3) g/dL Albumin 2.4 L (3.5-5.0) g/dL Globulin 2.8 (2.2-3.9) gm/dL Albumin/Globulin Ratio 0.9 L (1.0-2.1) Blood Type O POSITIVE Antibody Screen Negative 04/14/18 Range/Units 21:38 WBC (4.8-10.8) K/uL RBC (3.80-5.20) Mil/uL Hgb (11.0-16.0) g/dL Hct (34.0-47.0) % MCV (81.0-99.0) fL MCH (27.0-31.0) pg MCHC (33.0-37.0) g/dL RDW (11.5-14.5) % Plt Count (130-400) K/uL MPV (7.2-11.7) fL Neut % (Auto) (50.0-75.0) % Lymph % (Auto) (20.0-40.0) % [place] % (Auto) (0.0-10.0) % Eos % (Auto) (0.0-4.0) % Baso % (Auto) (0.0-2.0) % Neut # (Auto) (1.8-7.0) K/uL Lymph # (Auto) (1.0-4.3) K/uL [place] # (Auto) (0.0-0.8) K/uL Eos # (Auto) (0.0-0.7) K/uL Baso # (Auto) (0.0-0.2) K/uL Sodium (132-148) mmol/L Potassium (3.6-5.2) mmol/L Chloride (98-107) mmol/L Carbon Dioxide (22-30) mmol/L Anion Gap (10-20) BUN (7-17) mg/dL Creatinine (0.7-1.2) mg/dL Est GFR ( Amer) Est GFR (Non-Af Amer) POC Glucose (mg/dL) 91 (65-110) mg/dL Random Glucose (65-105) mg/dL Calcium (8.6-10.4) mg/dl Phosphorus (2.5-4.5) mg/dL Magnesium (1.6-2.3) mg/dL Total Bilirubin (0.2-1.3) mg/dL AST (14-36) U/L ALT (9-52) U/L Alkaline Phosphatase (38-126) U/L Total Protein (6.3-8.3) g/dL Albumin (3.5-5.0) g/dL Globulin (2.2-3.9) gm/dL Albumin/Globulin Ratio (1.0-2.1) Blood Type Antibody Screen Laboratory Results - last 24 hr 04/14/18 04/15/18 04/15/18 21:38 04:00 06:21 WBC 2.6 L RBC 3.00 L Hgb 8.3 L Hct 25.1 L MCV 83.6 MCH 27.8 MCHC 33.2 RDW 17.2 H Plt Count 41 L MPV 7.6 Neut % (Auto) 71.3 Lymph % (Auto) 15.6 L [place] % (Auto) 13.0 H Eos % (Auto) 0.0 Baso % (Auto) 0.1 Neut # (Auto) 1.9 Lymph # (Auto) 0.4 L [place] # (Auto) 0.3 Eos # (Auto) 0.0 Baso # (Auto) 0.0 Sodium Potassium Chloride Carbon Dioxide Anion Gap BUN Creatinine Est GFR ( Amer) Est GFR (Non-Af Amer) POC Glucose (mg/dL) 91 Random Glucose Calcium Phosphorus Magnesium Total Bilirubin AST ALT Alkaline Phosphatase Total Protein Albumin Globulin Albumin/Globulin Ratio Blood Type O POSITIVE Antibody Screen Negative 04/15/18 04/15/18 04/15/18 06:21 07:16 11:33 WBC RBC Hgb Hct MCV MCH MCHC RDW Plt Count MPV Neut % (Auto) Lymph % (Auto) [place] % (Auto) Eos % (Auto) Baso % (Auto) Neut # (Auto) Lymph # (Auto) [place] # (Auto) Eos # (Auto) Baso # (Auto) Sodium 136 Potassium 3.1 L Chloride 102 Carbon Dioxide 28 Anion Gap 9 L BUN 5 L Creatinine 0.3 L Est GFR ( Amer) > 60 Est GFR (Non-Af Amer) > 60 POC Glucose (mg/dL) 86 91 Random Glucose 90 Calcium 7.2 L Phosphorus 2.1 L Magnesium 1.1 L Total Bilirubin 0.9 AST 16 ALT 28 Alkaline Phosphatase 65 Total Protein 5.2 L Albumin 2.4 L Globulin 2.8 Albumin/Globulin Ratio 0.9 L Blood Type Antibody Screen 04/15/18 16:03 WBC RBC Hgb Hct MCV MCH MCHC RDW Plt Count MPV Neut % (Auto) Lymph % (Auto) [place] % (Auto) Eos % (Auto) Baso % (Auto) Neut # (Auto) Lymph # (Auto) [place] # (Auto) Eos # (Auto) Baso # (Auto) Sodium Potassium Chloride Carbon Dioxide Anion Gap BUN Creatinine Est GFR ( Amer) Est GFR (Non-Af Amer) POC Glucose (mg/dL) 83 Random Glucose Calcium Phosphorus Magnesium Total Bilirubin AST ALT Alkaline Phosphatase Total Protein Albumin Globulin Albumin/Globulin Ratio Blood Type Antibody Screen Critical Care Progress Note - Nutrition Nutrition: Nutrition Category Date Time Status Liquid Diet [DIET] Diets 04/13/18 Lunch Active Assessment/Plan - Assessment and Plan (Free Text) Plan: Patient with metastatin breast cancer. -remains hemodynamically stable -off pressors -continue palliative treatment -prognosis poor -continue abx as per ID - Date & Time Date: 04/15/18 Time: 18:18
--- NOTE | 2018-04-15 18:27 | CP.PCM.PN ---
Subjective - Date & Time of Evaluation Date of Evaluation: 04/15/18 Time of Evaluation: 18:27 Objective - Vital Signs/Intake and Output Vital Signs (last 24 hours): Temp Pulse Resp BP Pulse Ox 98.5 F 99 H 19 102/61 100 04/15/18 16:00 04/15/18 17:17 04/15/18 17:17 04/15/18 17:17 04/15/18 17:17 Intake and Output: 04/15/18 04/15/18 06:59 18:59 Intake Total 1575 2005.0 Output Total 200 400 Balance 1375 1605.0 - Medications Medications: Current Medications Vancomycin/Sodium Chloride (Vancomycin 1 Gm/Ns 200 Ml) 1 gm in 200 mls @ 133.333 mls/hr IVPB Q12H SARAH; Protocol Stop: 04/17/18 01:56 Last Admin: 04/15/18 13:34 Dose: 133.333 mls/hr Fluconazole 100 mg/ (Miscellaneous) 50 mls @ 100 mls/hr IVPB DAILY SARAH; Telly col Last Admin: 04/15/18 09:27 Dose: 100 mls/hr Gentamicin Sulfate 80 mg/ (Sodium Chloride) 102 mls @ 100 mls/hr IVPB Q8H SARAH; Protocol Last Admin: 04/15/18 13:34 Dose: 100 mls/hr Meropenem 1 gm/ Sodium (Chloride) 100 mls @ 100 mls/hr IVPB Q8H SARAH; Protocol Last Admin: 04/15/18 16:54 Dose: 100 mls/hr Dextrose/Sodium Chloride (Dextrose 5%/0.9% Ns 1000 Ml) 1,000 mls @ 100 mls/hr IV .Q10H SARAH Last Admin: 04/15/18 17:32 Dose: 100 mls/hr Midodrine (Proamatine) 5 mg PO TID SARAH Last Admin: 04/15/18 17:34 Dose: 5 mg Morphine Sulfate (Morphine) 2 mg IV Q2H PRN PRN Reason: Pain, moderate (4-7) Last Admin: 04/15/18 06:17 Dose: 2 mg Nystatin (Nystatin Oral Susp) 5 ml PO QID SARAH Last Admin: 04/15/18 17:32 Dose: 5 ml Pantoprazole Sodium (Protonix Inj) 40 mg IVP Q12H SARAH Last Admin: 04/15/18 07:48 Dose: 40 mg Saliva Substitute (First Magic Mouthwash) 10 ml PO Q6 SARAH Last Admin: 04/15/18 17:31 Dose: 10 ml - Labs Labs: 04/15/18 06:21 04/15/18 06:21 PT 16.8 SECONDS (9.7-12.2) H 04/12/18 06:10 INR 1.5 04/12/18 06:10 APTT 28 SECONDS (21-34) 04/12/18 06:10
--- NOTE | 2018-04-15 21:43 | CP.PCM.PN ---
Subjective - Date & Time of Evaluation Date of Evaluation: 04/15/18 Time of Evaluation: 13:45 - Subjective Subjective: dicated Objective - Vital Signs/Intake and Output Vital Signs (last 24 hours): Temp Pulse Resp BP Pulse Ox 98.5 F 96 H 19 122/81 100 04/15/18 16:00 04/15/18 19:00 04/15/18 19:00 04/15/18 18:21 04/15/18 19:00 Intake and Output: 04/15/18 04/16/18 18:59 06:59 Intake Total 2255.0 Output Total 400 Balance 1855.0 - Medications Medications: Current Medications Vancomycin/Sodium Chloride (Vancomycin 1 Gm/Ns 200 Ml) 1 gm in 200 mls @ 133.333 mls/hr IVPB Q12H SARAH; Protocol Stop: 04/17/18 01:56 Last Admin: 04/15/18 13:34 Dose: 133.333 mls/hr Fluconazole 100 mg/ (Miscellaneous) 50 mls @ 100 mls/hr IVPB DAILY SARAH; Protocol Last Admin: 04/15/18 09:27 Dose: 100 mls/hr Gentamicin Sulfate 80 mg/ (Sodium Chloride) 102 mls @ 100 mls/hr IVPB Q8H SARAH; Protocol Last Admin: 04/15/18 13:34 Dose: 100 mls/hr Meropenem 1 gm/ Sodium (Chloride) 100 mls @ 100 mls/hr IVPB Q8H SARAH; Protocol Last Admin: 04/15/18 16:54 Dose: 100 mls/hr Dextrose/Sodium Chloride (Dextrose 5%/0.9% Ns 1000 Ml) 1,000 mls @ 100 mls/hr IV .Q10H SARAH Last Admin: 04/15/18 18:49 Dose: Not Given Midodrine (Proamatine) 5 mg PO TID SARAH Last Admin: 04/15/18 17:34 Dose: 5 mg Morphine Sulfate (Morphine) 2 mg IV Q2H PRN PRN Reason: Pain, moderate (4-7) Last Admin: 04/15/18 19:43 Dose: 2 mg Nystatin (Nystatin Oral Susp) 5 ml PO QID SARAH Last Admin: 04/15/18 17:32 Dose: 5 ml Pantoprazole Sodium (Protonix Inj) 40 mg IVP Q12H SARAH Last Admin: 04/15/18 20:21 Dose: 40 mg Saliva Substitute (First Magic Mouthwash) 10 ml PO Q6 SARAH Last Admin: 04/15/18 17:31 Dose: 10 ml - Labs Labs: 04/15/18 06:21 04/15/18 06:21 PT 16.8 SECONDS (9.7-12.2) H 04/12/18 06:10 INR 1.5 04/12/18 06:10 APTT 28 SECONDS (21-34) 04/12/18 06:10
--- NOTE | 2018-04-15 21:44 | CP.PCM.PN ---
Subjective - Date & Time of Evaluation Date of Evaluation: 04/15/18 Time of Evaluation: 18:00 - Subjective Subjective: Feeling better Objective - Vital Signs/Intake and Output Vital Signs (last 24 hours): Temp Pulse Resp BP Pulse Ox 98.5 F 96 H 19 122/81 100 04/15/18 16:00 04/15/18 19:00 04/15/18 19:00 04/15/18 18:21 04/15/18 19:00 Intake and Output: 04/15/18 04/16/18 18:59 06:59 Intake Total 2255.0 Output Total 400 Balance 1855.0 - Medications Medications: Current Medications Vancomycin/Sodium Chloride (Vancomycin 1 Gm/Ns 200 Ml) 1 gm in 200 mls @ 133.333 mls/hr IVPB Q12H [facility]; Protocol Stop: 04/17/18 01:56 Last Admin: 04/15/18 13:34 Dose: 133.333 mls/hr Fluconazole 100 mg/ (Miscellaneous) 50 mls @ 100 mls/hr IVPB DAILY [facility]; Protocol Last Admin: 04/15/18 09:27 Dose: 100 mls/hr Gentamicin Sulfate 80 mg/ (Sodium Chloride) 102 mls @ 100 mls/hr IVPB Q8H [facility]; Protocol Last Admin: 04/15/18 13:34 Dose: 100 mls/hr Meropenem 1 gm/ Sodium (Chloride) 100 mls @ 100 mls/hr IVPB Q8H [facility]; Protocol Last Admin: 04/15/18 16:54 Dose: 100 mls/hr Dextrose/Sodium Chloride (Dextrose 5%/0.9% Ns 1000 Ml) 1,000 mls @ 100 mls/hr IV .Q10H [facility] Last Admin: 04/15/18 18:49 Dose: Not Given Midodrine (Proamatine) 5 mg PO TID [facility] Last Admin: 04/15/18 17:34 Dose: 5 mg Morphine Sulfate (Morphine) 2 mg IV Q2H PRN PRN Reason: Pain, moderate (4-7) Last Admin: 04/15/18 19:43 Dose: 2 mg Nystatin (Nystatin Oral Susp) 5 ml PO QID [facility] Last Admin: 04/15/18 17:32 Dose: 5 ml Pantoprazole Sodium (Protonix Inj) 40 mg IVP Q12H [facility] Last Admin: 04/15/18 20:21 Dose: 40 mg Saliva Substitute (First Magic Mouthwash) 10 ml PO Q6 [facility] Last Admin: 04/15/18 17:31 Dose: 10 ml - Labs Labs: 04/15/18 06:21 04/15/18 06:21 PT 16.8 SECONDS (9.7-12.2) H 04/12/18 06:10 INR 1.5 04/12/18 06:10 APTT 28 SECONDS (21-34) 04/12/18 06:10 - Head Exam Head Exam: ATRAUMATIC - Eye Exam Eye Exam: Normal appearance - ENT Exam ENT Exam: Mucous Membranes Dry - Respiratory Exam Respiratory Exam: NORMAL BREATHING PATTERN - Cardiovascular Exam Cardiovascular Exam: +S1, +S2 - GI/Abdominal Exam GI & Abdominal Exam: Normal Bowel Sounds Assessment and Plan (1) Pancytopenia Assessment & Plan: secondary to chemotherapy s/p transfusion and growth factor support Status: Acute (2) Breast cancer Assessment & Plan: stage IV outpatient treatment Status: Acute
--- NOTE | 2018-04-15 23:45 | PN ---
DATE: 04/15/2018 LOCATION: ICU 7. SUBJECTIVE: This is a 58-year-old female in a state of DNR and DNI, seen and examined early in rounds before. She appears to be somewhat awake and alert on and off without reported actual active bleeding or significant changes of her clinical presentation. Most recent lab results showed white blood cells 2.6, hemoglobin 8.3, hematocrit 25.1, platelet count 41, potassium 3.1, BUN of 5, creatinine of 0.3, calcium 7.2, phosphorus 2.1, magnesium 1.1, albumin 2.4, total protein 5.2. PHYSICAL EXAMINATION: GENERAL: A 58-year-old female, seen and examined in rounds. VITAL SIGNS: Afebrile with pulse of 98, respiratory rate 20-22, blood pressure of 106/64. HEENT: Showed pale dry oral mucoid membrane. Nonicteric sclerae. LUNGS: Few scattered crepitation. Decreased air entry at bases. HEART: Positive S1 and S2. ABDOMEN: Soft. Bowel sounds are present. No mass or organomegaly. No rebound tenderness or guarding. RECTAL: Traces of old blood clot. EXTREMITIES: Lower extremities edematous changes. No clubbing or cyanosis. NEUROLOGIC: No reported new neurological deficits, sensory or motor. IMPRESSION: 1. Pancolitis. 2. The possibility ischemic colitis was strongly raised with recent episodes of diarrhea as well as rectal bleeding, improving gradually. 3. Pancytopenia, most likely secondary to chemotherapy induced. 4. Metastatic cancer, had been before on chemotherapy and radiation therapy. 5. Sacral ulceration. 6. Electrolyte imbalance due to above with dehydration. 7. Obesity by history. 8. Diarrhea, most likely secondary to above, the possibility of collagenous colitis, radiation-induced, was raised. 9. Re-exacerbation of peptic ulcer disease. 10. Known history of deep venous thrombosis. SUGGESTIONS: 1. Continue conservative treatment 2. No need for aggressive GI workup in the meantime due to the patient's clinical presentation. Further recommendation to follow. Verito Fish MD
[2018-04-16] MEDS: Vancomycin 1 gm/NS 200 ml 1 GM/200 ML BAG IVPB SCH ×2 (01:55→13:20)
[2018-04-16] MEDS: Dextrose 5%/0.9% NS 1,000 ML IV SCH ×3 (04:45→22:30)
[2018-04-16] MEDS: Mag&Al/Simet/Diphen/Lido 237 ML KIT PO SCH ×4 (06:36→17:01)
[2018-04-16 06:43] LABS: BASO % 0.1 % (0.0-2.0); HEMOGLOBIN 8.7 g/dL (11.0-16.0); LYMPH # 0.5 K/uL (1.0-4.3); LYMPH % 21.7 % (20.0-40.0); MEAN CELL VOLUME 83.5 fL (81.0-99.0); MEAN CORPUSCULAR HEMOGLOBIN 27.5 pg (27.0-31.0); MEAN CORPUSCULAR HGB CONC 32.9 g/dL (33.0-37.0); MEAN PLATELET VOLUME 7.8 fL (7.2-11.7); MONO # 0.4 K/uL (0.0-0.8); MONO % 17.3 % (0.0-10.0); NEUT # 1.3 K/uL (1.8-7.0); NEUT % 60.9 % (50.0-75.0); RBC 3.17 Mil/uL (3.80-5.20); RED CELL DISTRIBUTION WIDTH 17.9 % (11.5-14.5); WHITE BLOOD COUNT 2.1 K/uL (4.8-10.8)
[2018-04-16 07:17] LABS: ALB/GLOB RATIO 0.8 (1.0-2.1); ALBUMIN 2.3 g/dL (3.5-5.0); ALT/SGPT 33 U/L (9-52); AST/SGOT 24 U/L (14-36); BLOOD UREA NITROGEN 5 mg/dL (7-17); CALCIUM 7.2 mg/dl (8.6-10.4); GFR NON-AFRICAN AMERICAN > 60
[2018-04-16] MEDS: Meropenem 1 GM in Sodium Chloride 0.9% 100 ML IVPB SCH ×3 (10:29→16:24)
[2018-04-16] MEDS: Nystatin 100,000 Units/ml Oral Susp 5 ml UD PO SCH ×4 (10:29→22:02)
[2018-04-16] MEDS: Fluconazole IV 200mg/100 ml NS 100 MG in Premixed IV 1 EA IVPB SCH (10:29)
[2018-04-16] MEDS ORDERED: Potassium Chloride 20 mEq/15 ml LIQ UD PO ONE (12:30)
[2018-04-16] MEDS: Magnesium Sulfate 1 gm in D5W 1 GM/100 ML BAG IVPB SCH (12:34)
--- NOTE | 2018-04-16 16:53 | CP.PCM.PN ---
Subjective - Date & Time of Evaluation Date of Evaluation: 04/16/18 Time of Evaluation: 16:53 Objective - Vital Signs/Intake and Output Vital Signs (last 24 hours): Temp Pulse Resp BP Pulse Ox 97.8 F 97 H 17 114/82 100 04/16/18 12:00 04/16/18 16:00 04/16/18 16:00 04/16/18 15:17 04/16/18 16:00 Intake and Output: 04/16/18 04/16/18 06:59 18:59 Intake Total 1700 1862 Output Total 400 Balance 1300 1862 - Medications Medications: Current Medications Vancomycin/Sodium Chloride (Vancomycin 1 Gm/Ns 200 Ml) 1 gm in 200 mls @ 133.333 mls/hr IVPB Q12H [facility]; Protocol Stop: 04/17/18 01:56 Last Admin: 04/16/18 13:20 Dose: 133.333 mls/hr Fluconazole 100 mg/ (Miscellaneous) 50 mls @ 100 mls/hr IVPB DAILY [facility]; Protocol Last Admin: 04/16/18 10:29 Dose: 100 mls/hr Gentamicin Sulfate 80 mg/ (Sodium Chloride) 102 mls @ 100 mls/hr IVPB Q8H [facility]; Protocol Last Admin: 04/16/18 13:20 Dose: 100 mls/hr Dextrose/Sodium Chloride (Dextrose 5%/0.9% Ns 1000 Ml) 1,000 mls @ 100 mls/hr IV .Q10H [facility] Last Admin: 04/16/18 16:23 Dose: Not Given Midodrine (Proamatine) 5 mg PO TID [facility] Last Admin: 04/16/18 13:21 Dose: Not Given Morphine Sulfate (Morphine) 2 mg IV Q2H PRN PRN Reason: Pain, moderate (4-7) Last Admin: 04/16/18 12:52 Dose: 2 mg Nystatin (Nystatin Oral Susp) 5 ml PO QID [facility] Last Admin: 04/16/18 13:21 Dose: Not Given Pantoprazole Sodium (Protonix Inj) 40 mg IVP Q12H [facility] Last Admin: 04/16/18 10:29 Dose: 40 mg Saliva Substitute (First Magic Mouthwash) 10 ml PO Q6 [facility] Last Admin: 04/16/18 12:05 Dose: Not Given - Labs Labs: 04/16/18 06:20 04/16/18 06:20 PT 16.8 SECONDS (9.7-12.2) H 04/12/18 06:10 INR 1.5 04/12/18 06:10 APTT 28 SECONDS (21-34) 04/12/18 06:10
[2018-04-16] MEDS: Piperacillin/Tazobact 3.375 GM in Sodium Chloride 100 ML IVPB SCH (20:45)
[2018-04-16] MEDS: Morphine 4 MG/ML VIAL IV PRN (21:54)
--- NOTE | 2018-04-16 22:54 | CP.PCM.PN ---
Subjective - Date & Time of Evaluation Date of Evaluation: 04/16/18 Time of Evaluation: 19:00 - Subjective Subjective: Tolerating more PO Objective - Vital Signs/Intake and Output Vital Signs (last 24 hours): Temp Pulse Resp BP Pulse Ox 98.4 F 106 H 20 111/70 100 04/16/18 20:00 04/16/18 20:17 04/16/18 20:17 04/16/18 20:17 04/16/18 20:17 Intake and Output: 04/16/18 04/17/18 18:59 06:59 Intake Total 2162 100 Balance 2162 100 - Medications Medications: Current Medications Vancomycin/Sodium Chloride (Vancomycin 1 Gm/Ns 200 Ml) 1 gm in 200 mls @ 133.333 mls/hr IVPB Q12H [facility]; Protocol Stop: 04/17/18 01:56 Last Admin: 04/16/18 13:20 Dose: 133.333 mls/hr Fluconazole 100 mg/ (Miscellaneous) 50 mls @ 100 mls/hr IVPB DAILY [facility]; Protocol Last Admin: 04/16/18 10:29 Dose: 100 mls/hr Piperacillin Sod/Tazobactam (Sod 3.375 gm/ Sodium Chloride) 100 mls @ 200 mls/hr IVPB Q8H [facility]; Protocol Last Admin: 04/16/18 20:45 Dose: 200 mls/hr Dextrose/Sodium Chloride (Dextrose 5%/0.9% Ns 1000 Ml) 1,000 mls @ 100 mls/hr IV .Q10H [facility] Midodrine (Proamatine) 5 mg PO TID [facility] Last Admin: 04/16/18 17:01 Dose: Not Given Morphine Sulfate (Morphine) 2 mg IV Q2H PRN PRN Reason: Pain, moderate (4-7) Last Admin: 04/16/18 21:54 Dose: 2 mg Nystatin (Nystatin Oral Susp) 5 ml PO QID [facility] Last Admin: 04/16/18 22:02 Dose: Not Given Pantoprazole Sodium (Protonix Inj) 40 mg IVP Q12H [facility] Last Admin: 04/16/18 20:30 Dose: 40 mg Saliva Substitute (First Magic Mouthwash) 10 ml PO Q6 [facility] Last Admin: 04/16/18 17:01 Dose: Not Given - Labs Labs: 04/16/18 06:20 04/16/18 06:20 PT 16.8 SECONDS (9.7-12.2) H 04/12/18 06:10 INR 1.5 04/12/18 06:10 APTT 28 SECONDS (21-34) 04/12/18 06:10 - Head Exam Head Exam: ATRAUMATIC - Eye Exam Eye Exam: Normal appearance - ENT Exam ENT Exam: Mucous Membranes Dry - Respiratory Exam Respiratory Exam: NORMAL BREATHING PATTERN - Cardiovascular Exam Cardiovascular Exam: +S1, +S2 - GI/Abdominal Exam GI & Abdominal Exam: Normal Bowel Sounds - Extremities Exam Extremities Exam: Pedal Edema Assessment and Plan (1) Pancytopenia Assessment & Plan: secondary to chemotherapy s/p growth factor and transfusion support Status: Acute (2) Breast cancer Assessment & Plan: stage IV outpatient treatment Status: Acute
[2018-04-17] MEDS: Mag&Al/Simet/Diphen/Lido 237 ML KIT PO SCH ×4 (00:09→18:01)
[2018-04-17] MEDS: Vancomycin 1 gm/NS 200 ml 1 GM/200 ML BAG IVPB SCH (01:06)
[2018-04-17] MEDS: Piperacillin/Tazobact 3.375 GM in Sodium Chloride 100 ML IVPB SCH ×3 (03:30→21:44)
[2018-04-17] MEDS: Morphine 4 MG/ML VIAL IV PRN ×3 (03:54→21:54)
[2018-04-17 06:41] LABS: BASO % 0.2 % (0.0-2.0); HEMOGLOBIN 8.6 g/dL (11.0-16.0); LYMPH # 0.5 K/uL (1.0-4.3); LYMPH % 26.1 % (20.0-40.0); MEAN CELL VOLUME 83.9 fL (81.0-99.0); MEAN CORPUSCULAR HGB CONC 33.4 g/dL (33.0-37.0); MEAN PLATELET VOLUME 8.5 fL (7.2-11.7); MONO # 0.4 K/uL (0.0-0.8); MONO % 23.1 % (0.0-10.0); NEUT # 0.9 K/uL (1.8-7.0); NEUT % 50.6 % (50.0-75.0); NRBC % 0.5 % (0.0-2.0); RBC 3.08 Mil/uL (3.80-5.20); RED CELL DISTRIBUTION WIDTH 17.6 % (11.5-14.5)
[2018-04-17 06:48] LABS: PLATELET COUNT 28 K/uL (130-400); WHITE BLOOD COUNT 1.8 K/uL (4.8-10.8)
[2018-04-17 07:03] LABS: ALB/GLOB RATIO 0.9 (1.0-2.1); ALBUMIN 2.3 g/dL (3.5-5.0); ALT/SGPT 29 U/L (9-52); AST/SGOT 22 U/L (14-36); BLOOD UREA NITROGEN 5 mg/dL (7-17); CALCIUM 7.2 mg/dl (8.6-10.4); GFR NON-AFRICAN AMERICAN > 60
[2018-04-17 08:37] LABS: LYMPHOCYTE 21 % (20-40); MONOCYTE 11 % (0-10); NEUTROPHIL 68 % (50-75); PLATELET ESTIMATE MARKEDLY DECREASED (NORMAL); TOTAL CELLS COUNTED 100
[2018-04-17 08:38] LABS: ANISOCYTOSIS SLIGHT; HYPOCHROMIC SLIGHT; MICROCYTOSIS SLIGHT; POLYCHROMIC SLIGHT
[2018-04-17] MEDS: Fluconazole IV 200mg/100 ml NS 100 MG in Premixed IV 1 EA IVPB SCH (09:35)
[2018-04-17] MEDS: Nystatin 100,000 Units/ml Oral Susp 5 ml UD PO SCH ×4 (09:38→21:51)
[2018-04-17] MEDS: Dextrose 5%/0.9% NS 1,000 ML IV SCH (09:40)
[2018-04-17] MEDS ORDERED: Potassium Chloride 20 mEq 0 ML ONE (13:44)
[2018-04-17] MEDS: Magnesium Sulfate 1 gm in D5W 1 GM/100 ML BAG IVPB SCH ×2 (13:46→13:50)
[2018-04-17] MEDS ORDERED: Potassium Phosphate 15 MMOLE in Dextrose 5% In Water 250 ML IVPB ONE (14:30)
--- NOTE | 2018-04-17 15:35 | CP.PCM.PN ---
Subjective - Date & Time of Evaluation Date of Evaluation: 04/17/18 Time of Evaluation: 15:35 Objective - Vital Signs/Intake and Output Vital Signs (last 24 hours): Temp Pulse Resp BP Pulse Ox 98.1 F 94 H 18 104/68 99 04/17/18 14:56 04/17/18 14:56 04/17/18 14:56 04/17/18 14:56 04/17/18 14:56 Intake and Output: 04/17/18 04/17/18 06:59 18:59 Intake Total 1300 700 Output Total 700 Balance 600 700 - Medications Medications: Current Medications Fluconazole 100 mg/ (Miscellaneous) 50 mls @ 100 mls/hr IVPB DAILY SARAH; P rotocol Last Admin: 04/17/18 09:35 Dose: 100 mls/hr Piperacillin Sod/Tazobactam (Sod 3.375 gm/ Sodium Chloride) 100 mls @ 200 mls/hr IVPB Q8H SARAH; Protocol Last Admin: 04/17/18 11:13 Dose: 200 mls/hr Dextrose/Sodium Chloride (Dextrose 5%/0.9% Ns 1000 Ml) 1,000 mls @ 100 mls/hr IV .Q10H [facility] Last Admin: 04/17/18 09:40 Dose: 100 mls/hr Potassium Phosphate 15 mmole/ (Dextrose) 255 mls @ 42.5 mls/hr IVPB ONCE ONE Stop: 04/17/18 20:29 Last Admin: 04/17/18 14:00 Dose: 42.5 mls/hr Potassium Chloride (Potassium Chloride 10 Meq/100 Ml) 10 meq in 100 mls @ 100 mls/hr IVPB Q1H [facility]AH Stop: 04/17/18 16:29 Last Admin: 04/17/18 15:16 Dose: 100 mls/hr Midodrine (Proamatine) 5 mg PO TID [facility] Last Admin: 04/17/18 14:02 Dose: Not Given Morphine Sulfate (Morphine) 2 mg IV Q2H PRN PRN Reason: Pain, moderate (4-7) Last Admin: 04/17/18 03:54 Dose: 2 mg Nystatin (Nystatin Oral Susp) 5 ml PO QID [facility] Last Admin: 04/17/18 13:36 Dose: Not Given Pantoprazole Sodium (Protonix Inj) 40 mg IVP Q12H [facility] Last Admin: 04/17/18 09:00 Dose: 40 mg Saliva Substitute (First Magic Mouthwash) 10 ml PO Q6 [facility] Last Admin: 04/17/18 11:14 Dose: 10 ml - Labs Labs: 04/17/18 06:37 04/17/18 06:37 PT 16.8 SECONDS (9.7-12.2) H 04/12/18 06:10 INR 1.5 04/12/18 06:10 APTT 28 SECONDS (21-34) 04/12/18 06:10
--- NOTE | 2018-04-17 17:49 | CP.PCM.PN ---
Subjective - Date & Time of Evaluation Date of Evaluation: 04/17/18 Time of Evaluation: 15:40 - Subjective Subjective: dictated Objective - Vital Signs/Intake and Output Vital Signs (last 24 hours): Temp Pulse Resp BP Pulse Ox 97.7 F 97 H 20 129/81 100 04/17/18 17:22 04/17/18 17:23 04/17/18 17:22 04/17/18 17:22 04/17/18 17:22 Intake and Output: 04/17/18 04/17/18 06:59 18:59 Intake Total 1300 700 Output Total 700 Balance 600 700 - Medications Medications: Current Medications Fluconazole 100 mg/ (Miscellaneous) 50 mls @ 100 mls/hr IVPB DAILY SARAH; Protocol Last Admin: 04/17/18 09:35 Dose: 100 mls/hr Piperacillin Sod/Tazobactam (Sod 3.375 gm/ Sodium Chloride) 100 mls @ 200 mls/hr IVPB Q8H [facility]; Protocol Last Admin: 04/17/18 11:13 Dose: 200 mls/hr Dextrose/Sodium Chloride (Dextrose 5%/0.9% Ns 1000 Ml) 1,000 mls @ 100 mls/hr IV .Q10H [facility] Last Admin: 04/17/18 09:40 Dose: 100 mls/hr Potassium Phosphate 15 mmole/ (Dextrose) 255 mls @ 42.5 mls/hr IVPB ONCE ONE Stop: 04/17/18 20:29 Last Admin: 04/17/18 14:00 Dose: 42.5 mls/hr Midodrine (Proamatine) 5 mg PO TID [facility] Last Admin: 04/17/18 14:02 Dose: Not Given Morphine Sulfate (Morphine) 2 mg IV Q2H PRN PRN Reason: Pain, moderate (4-7) Last Admin: 04/17/18 03:54 Dose: 2 mg Nystatin (Nystatin Oral Susp) 5 ml PO QID [facility] Last Admin: 04/17/18 13:36 Dose: Not Given Pantoprazole Sodium (Protonix Inj) 40 mg IVP Q12H [facility] Last Admin: 04/17/18 09:00 Dose: 40 mg Saliva Substitute (First Magic Mouthwash) 10 ml PO Q6 [facility] Last Admin: 04/17/18 11:14 Dose: 10 ml - Labs Labs: 04/17/18 06:37 04/17/18 06:37 PT 16.8 SECONDS (9.7-12.2) H 04/12/18 06:10 INR 1.5 04/12/18 06:10 APTT 28 SECONDS (21-34) 04/12/18 06:10
--- NOTE | 2018-04-17 22:44 | PN ---
DATE: 04/17/2018 SUBJECTIVE: The patient was seen today. She was more verbal. She says she is trying to eat. She denied abdominal pain. PHYSICAL EXAMINATION: VITAL SIGNS: T-max was 97.7, pulse 97, blood pressure 129/81, respirations 20. HEENT: Head is atraumatic. She has a left side Port-A-Cath which is functioning. LUNGS: Clear to auscultation. HEART: S1 and S2 are regular. ABDOMEN: Soft, nontender. RECTAL: She has had rectal bleeding, but it is infrequent now. EXTREMITIES: Remain with bilateral edema and obesity. She also has a sacral wound. ASSESSMENT AND PLAN: She remains in intensive care unit. Her white count dropped to 1.8, hemoglobin 8.6, hematocrit 25.8, platelet count is 28. We need to monitor that closely because I switched the Merrem to Zosyn, thinking that the platelets would reverse, but she has also electrolyte imbalance which needs to be replenished every so often. Clostridium difficile was negative. Influenza is negative. Her wound had Staphylococcus aureus and the wound culture came back which is methicillin-sensitive Staphylococcus aureus and urine has yeast. She had bacteroides which is an anaerobe in the blood culture. We have been covering it before with the meropenem and now with Zosyn. I will continue the same at this time, and hopefully the white count will go up. Hematology/oncology attending is following. We will continue with psych specialist who is following the wounds. The patient is on fluconazole and Zosyn at this time. Jacqueline Saez MD
[2018-04-18] MEDS: Mag&Al/Simet/Diphen/Lido 237 ML KIT PO SCH ×4 (00:19→18:27)
[2018-04-18] MEDS: Dextrose 5%/0.9% NS 1,000 ML IV SCH ×3 (03:00→13:46)
[2018-04-18] MEDS: Piperacillin/Tazobact 3.375 GM in Sodium Chloride 100 ML IVPB SCH ×3 (03:10→18:45)
[2018-04-18] MEDS: Morphine 4 MG/ML VIAL IV PRN (05:33)
--- NOTE | 2018-04-18 09:41 | PN ---
DATE: 04/15/2018 SUBJECTIVE: The patient was seen today. She says that she sometimes gets abdominal pain and has a little bleeding still, but she feels little better. She was lying on her left side as she has back wounds, sacral wounds, and she denied any pain at the Port-A-Cath site. PHYSICAL EXAMINATION: VITAL SIGNS: Her temp was 98.5, heart rate of 100, blood pressure 102/61, respirations are 21. HEENT: Head is atraumatic and normocephalic. NECK: Supple. LUNGS: Clear. No crackles or rales present. HEART: S1, S2 are regular. ABDOMEN: Soft, nontender. No guarding, no rigidity present. EXTREMITIES: Remain with edema and obesity, and she has sacral decubitus. LABORATORY DATA: Labs show stool culture is negative. Ova and parasite is negative. MRSA is negative. Wound has Staph aureus, and this staph aureus is a methicillin-sensitive Staph aureus, and urine had yeast. She is on multiple antibiotics at this time. We are giving fluconazole, gentamicin, meropenem, and vancomycin. I thought there was bacteremia with the cultures are negative 04/11/2018 final. One blood culture had Bacteroides caccae. So she did have Bacteroides. It may be coming from the bowel. She had radiation done. Hence, she is on multiple antibiotics at this time, and her medications are she is also on nystatin, pantoprazole, Saliva Substitute, First Magic mouthwash, vancomycin, and gentamicin. So tomorrow, if she is improving, we can first cut out gentamicin and continue the others as she did have chemotherapy and radiation for cancer and came in pancytopenic. Jacqueline Saez MD
--- NOTE | 2018-04-18 09:41 | PN ---
DATE: 04/16/2018 LOCATION: ICU 7. SUBJECTIVE: This 58-year-old female, in a state of DNR/DNI, seen and examined in rounds, without reported significant clinical changes, appeared to be awake, alert. No reported abdominal pain, chest pain, palpitation, or significant shortness of breath at the moment. LABORATORY DATA: Today's lab results showed white blood cells of 2.1, hemoglobin 8.7 and hematocrit of 26.4 with persistent thrombocytopenia of 33 today. Potassium of 3.2, BUN of 5, creatinine 0.3, calcium 7.2, phosphorus 1.9 with very low magnesium of 1 with albumin 2.3, total protein 5.1 PHYSICAL EXAMINATION: GENERAL: A 58-year-old female. VITAL SIGNS: Afebrile with heart rate of 98, respiratory rate 20 to 22, blood pressure 120/76. HEENT: Showed pale dry oral mucoid membrane. Nonicteric sclerae. LUNGS: Few scattered crepitation. Decreased air entry at bases. HEART: Positive S1 and S2. ABDOMEN: Soft with mild generalized tenderness. No mass or organomegaly. No rebound tenderness or guarding. Abdominal distention noted. EXTREMITIES: With lower extremities mild edematous changes. No clubbing or cyanosis. NEUROLOGIC: No reported new neurological deficits, sensory or motor. IMPRESSION: 1. Known history of breast carcinoma with metastatic lesions. 2. Mild depression post chemo and radiation therapy with severe pancytopenia. 3. Malnutrition, hypoalbuminemia, hypoproteinemia. 4. Reported abnormal CAT scan of the abdomen and pelvis with recent history of diarrhea and rectal bleeding. Infectious Disease suggestion of ischemic bowel syndrome, gradually improving clinically. The possibility of acute radiation induced colitis, collagenous colitis was raised. 5. Sacral ulceration by recent history. 6. Electrolyte imbalance. 7. Known history of obesity. SUGGESTIONS: 1. Continue current management. 2. No aggressive GI workup in the meantime until the patient is more stable clinically. 3. Further recommendation to follow. Verito Fish MD
--- NOTE | 2018-04-18 09:42 | PN ---
DATE: 04/16/2018 SUBJECTIVE: The patient was seen today. She was awake and alert. She said she is feeling better; however, she does get some times pain and had mild bleeding from the abdomen. She has had bladder culture positive for Bacteroidaceae. The repeat cultures are coming out negative at this time. She denies any other problems. She does have decubitus on her back. PHYSICAL EXAMINATION: VITAL SIGNS: T-max is 97.7, pulse 97, blood pressure is 114/82, respirations are 17, and 100% saturation. GENERAL: She is awake and alert. HEENT: Head is atraumatic and normocephalic. NECK: Supple. On the left side, Port-A-Cath present. LUNGS: Clear. HEART: S1 and S2 are regular. ABDOMEN: Soft, nontender. EXTREMITIES: Remain with edema. She continues to have sacral decubitus. LABORATORY DATA: Labs show that her platelets are decreasing to 33; white count is 2.1, has improved. Today's hemoglobin 8.7, hematocrit 26.4, platelet count dropped to 33. Potassium is 3.2, creatinine 0.3. ASSESSMENT AND PLAN: She was seen by Dr. Gibson. She is feeling better. She was on meropenem. Magnesium is low. It needs to be supplemented. This is from this morning. She did get magnesium 2 g. So at this time, she is getting better. I looked into the culture reports. She had a blood culture which was Bacteroidaceae. It was probably related to her gastrointestinal symptoms. She had radiation and chemotherapy. She has Staphylococcus aureus in the wound which is methicillin sensitive, and she had yeast in the urine. So at this time, I would discontinue the gentamicin and continue vancomycin. I would add Zosyn, may be the platelets will decrease less with it than with meropenem and leave her on Diflucan. Once she stabilizes a little bit, we will continue these antibiotics and hopefully her platelets will improve. Probably, we can get rid of vancomycin in few days as she does not have any methicillin-resistant Staphylococcus aureus in the wound. We will follow. Jacqueline Saez MD [facility] # [id number]
[2018-04-18] MEDS: Fluconazole IV 200mg/100 ml NS 100 ML IVPB SCH (10:47)
--- NOTE | 2018-04-18 15:22 | CP.PCM.PN ---
Subjective - Date & Time of Evaluation Date of Evaluation: 04/18/18 Time of Evaluation: 15:15 - Subjective Subjective: dictated Objective - Vital Signs/Intake and Output Vital Signs (last 24 hours): Temp Pulse Resp BP Pulse Ox 98.3 F 89 20 112/67 100 04/18/18 07:00 04/18/18 07:55 04/18/18 07:00 04/18/18 07:00 04/18/18 07:00 Intake and Output: 04/18/18 04/18/18 06:59 18:59 Intake Total 800 Balance 800 - Medications Medications: Current Medications Piperacillin Sod/Tazobactam (Sod 3.375 gm/ Sodium Chloride) 100 mls @ 200 mls/hr IVPB Q8H [facility]; Protocol Last Admin: 04/18/18 12:27 Dose: 200 mls/hr Dextrose/Sodium Chloride (Dextrose 5%/0.9% Ns 1000 Ml) 1,000 mls @ 100 mls/hr IV .Q10H [facility] Last Admin: 04/18/18 13:46 Dose: 100 mls/hr Fluconazole (Diflucan Iv 200 Mg/100 Ml Ns) 100 mls @ 100 mls/hr IVPB Q24H [facility]; Protocol Last Admin: 04/18/18 10:47 Dose: 100 mls/hr Midodrine (Proamatine) 5 mg PO TID [facility] Last Admin: 04/18/18 13:43 Dose: 5 mg Morphine Sulfate (Morphine) 2 mg IV Q2H PRN PRN Reason: Pain, moderate (4-7) Last Admin: 04/18/18 05:33 Dose: 2 mg Pantoprazole Sodium (Protonix Inj) 40 mg IVP Q12H [facility] Last Admin: 04/18/18 08:18 Dose: 40 mg Saliva Substitute (First Magic Mouthwash) 10 ml PO Q6 [facility] Last Admin: 04/18/18 13:14 Dose: 10 ml - Labs Labs: 04/17/18 06:37 04/17/18 06:37 PT 16.8 SECONDS (9.7-12.2) H 04/12/18 06:10 INR 1.5 04/12/18 06:10 APTT 28 SECONDS (21-34) 04/12/18 06:10
--- NOTE | 2018-04-18 18:25 | PN ---
DATE: 04/18/2018 LOCATION: 656, bed B. SUBJECTIVE: This is a 58-year-old female in a state of DNR and DNI, seen and examined in rounds early today without significant clinical changes, reported to be incontinent of bowel and bladder with multiple sacral ulcerations covered with clean dressing, but no reported active GI bleeding. Most recent lab results done today showed blood glucose level of 90. Rest of lab results still pending and the patient still has persistent pancytopenia. No reported chest pain, palpitation, significant shortness of breath, or active GI bleeding. PHYSICAL EXAMINATION: GENERAL: A 58-year-old female. VITAL SIGNS: Afebrile with pulse of 92, respiratory 20 to 22, blood pressure of 116/64. HEENT: Showed pale dry oral mucoid membrane. Nonicteric sclerae. LUNGS: Few scattered crepitation. Decreased air entry at bases. HEART: Positive S1 and S2. ABDOMEN: Soft. Bowel sounds are present with mild generalized tenderness. No mass or organomegaly. No rebound tenderness or guarding. EXTREMITIES: Without significant clubbing or cyanosis, but lower extremity edematous changes. NEUROLOGIC: No reported new neurological deficits, sensory or motor. No reported new focal deficits. IMPRESSION: 1. Pancytopenia, most likely secondary to radiation and chemotherapy with bone marrow depression. 2. Known history of metastatic breast cancer. 3. Malnutrition, hypoalbuminemia. 4. Known history of depression. 5. Abnormal CAT scan of the abdomen and pelvis. 6. Reported recent history of gastrointestinal bleeding, subsiding, associated with diarrhea and ischemic bowel syndrome was raised. 7. Sacral ulceration. 8. Electrolyte imbalance. 9. Known history of obesity. SUGGESTIONS: 1. Continue supportive treatment. 2. Peripheral hyperalimentation. 3. Further recommendations to follow. Verito Fish MD
--- NOTE | 2018-04-18 23:14 | PN ---
DATE: 04/18/2018 SUBJECTIVE: The patient remains afebrile. She is feeling lot better. She is lying on the left side. She is aware of her ulcerations. She denies any more active bleeding from the abdomen. PHYSICAL EXAMINATION: VITAL SIGNS: T-max is 97.8, pulse is 84, blood pressure 114/72, respirations are 18. HEAD: Atraumatic and normocephalic. NECK: Supple. LUNGS: Clear. HEART: S1, S2 is regular. ABDOMEN: Soft, nontender. No guarding, no rigidity present. She does have decubiti on the left. Her blood cultures have been all negative, wound culture and urine had yeast and she remains pancytopenic. RECOMMENDATION: We will need to repeat the labs tomorrow to see further what can be done for her. She is presently on Zosyn and Diflucan and she did have this Bacteroidaceae in the blood culture, which was finalized, which is an anaerobe. Beta-lactamase positive and so we will continue treatment for 14 days from 7th. She will need antibiotics at least till 04/25/2018 to cover for that Bacteroidaceae and she did have radiation and chemotherapy and this bacteroides is associated with malignancies and she does have one. We will continue Zosyn as well as Diflucan at this time. Jacqueline Saez MD
[2018-04-19] MEDS: Mag&Al/Simet/Diphen/Lido 237 ML KIT PO SCH ×4 (00:30→19:16)
[2018-04-19] MEDS: Piperacillin/Tazobact 3.375 GM in Sodium Chloride 100 ML IVPB SCH ×3 (03:31→19:16)
[2018-04-19] MEDS: Morphine 4 MG/ML VIAL IV PRN (06:12)
[2018-04-19] MEDS: Fluconazole IV 200mg/100 ml NS 100 ML IVPB SCH (10:01)
[2018-04-19] MEDS: Dextrose 5%/0.9% NS 1,000 ML IV SCH ×3 (10:04→21:06)
--- NOTE | 2018-04-19 13:50 | CP.PCM.PN ---
Subjective - Date & Time of Evaluation Date of Evaluation: 04/19/18 Time of Evaluation: 13:40 - Subjective Subjective: dictated Objective - Vital Signs/Intake and Output Vital Signs (last 24 hours): Temp Pulse Resp BP Pulse Ox 98.8 F 90 20 102/68 100 04/19/18 07:00 04/19/18 07:00 04/19/18 07:00 04/19/18 07:00 04/19/18 07:00 Intake and Output: 04/19/18 04/19/18 06:59 18:59 Intake Total 1500 Output Total 900 Balance 600 - Medications Medications: Current Medications Piperacillin Sod/Tazobactam (Sod 3.375 gm/ Sodium Chloride) 100 mls @ 200 mls/hr IVPB Q8H [facility]; Protocol Last Admin: 04/19/18 12:54 Dose: 200 mls/hr Dextrose/Sodium Chloride (Dextrose 5%/0.9% Ns 1000 Ml) 1,000 mls @ 100 mls/hr IV .Q10H [facility] Last Admin: 04/19/18 12:54 Dose: Not Given Fluconazole (Diflucan Iv 200 Mg/100 Ml Ns) 100 mls @ 100 mls/hr IVPB Q24H [facility]; Protocol Last Admin: 04/19/18 10:01 Dose: 100 mls/hr Midodrine (Proamatine) 5 mg PO TID [facility] Last Admin: 04/19/18 13:43 Dose: 5 mg Morphine Sulfate (Morphine) 2 mg IV Q2H PRN PRN Reason: Pain, moderate (4-7) Last Admin: 04/19/18 06:12 Dose: 2 mg Pantoprazole Sodium (Protonix Inj) 40 mg IVP Q12H [facility] Last Admin: 04/19/18 08:22 Dose: 40 mg Saliva Substitute (First Magic Mouthwash) 10 ml PO Q6 [facility] Last Admin: 04/19/18 12:57 Dose: 10 ml - Labs Labs: 04/17/18 06:37 04/17/18 06:37 PT 16.8 SECONDS (9.7-12.2) H 04/12/18 06:10 INR 1.5 04/12/18 06:10 APTT 28 SECONDS (21-34) 04/12/18 06:10
--- NOTE | 2018-04-19 16:06 | CP.PCM.PN ---
Subjective - Date & Time of Evaluation Date of Evaluation: 04/18/18 Time of Evaluation: 16:10 Objective - Vital Signs/Intake and Output Vital Signs (last 24 hours): Temp Pulse Resp BP Pulse Ox 98.8 F 90 20 102/68 100 04/19/18 07:00 04/19/18 07:00 04/19/18 07:00 04/19/18 07:00 04/19/18 07:00 Intake and Output: 04/19/18 04/19/18 06:59 18:59 Intake Total 1500 Output Total 900 Balance 600 - Medications Medications: Current Medications Piperacillin Sod/Tazobactam (Sod 3.375 gm/ Sodium Chloride) 100 mls @ 200 mls/h r IVPB Q8H [facility]; Protocol Last Admin: 04/19/18 12:54 Dose: 200 mls/hr Dextrose/Sodium Chloride (Dextrose 5%/0.9% Ns 1000 Ml) 1,000 mls @ 100 mls/hr IV .Q10H [facility] Last Admin: 04/19/18 12:54 Dose: Not Given Fluconazole (Diflucan Iv 200 Mg/100 Ml Ns) 100 mls @ 100 mls/hr IVPB Q24H [facility]; Protocol Last Admin: 04/19/18 10:01 Dose: 100 mls/hr Midodrine (Proamatine) 5 mg PO TID [facility] Last Admin: 04/19/18 13:43 Dose: 5 mg Morphine Sulfate (Morphine) 2 mg IV Q2H PRN PRN Reason: Pain, moderate (4-7) Last Admin: 04/19/18 06:12 Dose: 2 mg Pantoprazole Sodium (Protonix Inj) 40 mg IVP Q12H [facility] Last Admin: 04/19/18 08:22 Dose: 40 mg Saliva Substitute (First Magic Mouthwash) 10 ml PO Q6 [facility] Last Admin: 04/19/18 12:57 Dose: 10 ml - Labs Labs: 04/17/18 06:37 04/17/18 06:37 PT 16.8 SECONDS (9.7-12.2) H 04/12/18 06:10 INR 1.5 04/12/18 06:10 APTT 28 SECONDS (21-34) 04/12/18 06:10
--- NOTE | 2018-04-19 16:07 | CP.PCM.PN ---
Subjective - Date & Time of Evaluation Date of Evaluation: 04/19/18 Time of Evaluation: 16:06 Objective - Vital Signs/Intake and Output Vital Signs (last 24 hours): Temp Pulse Resp BP Pulse Ox 98.8 F 90 20 102/68 100 04/19/18 07:00 04/19/18 07:00 04/19/18 07:00 04/19/18 07:00 04/19/18 07:00 Intake and Output: 04/19/18 04/19/18 06:59 18:59 Intake Total 1500 Output Total 900 Balance 600 - Medications Medications: Current Medications Piperacillin Sod/Tazobactam (Sod 3.375 gm/ Sodium Chloride) 100 mls @ 200 mls/h r IVPB Q8H [facility]; Protocol Last Admin: 04/19/18 12:54 Dose: 200 mls/hr Dextrose/Sodium Chloride (Dextrose 5%/0.9% Ns 1000 Ml) 1,000 mls @ 100 mls/hr IV .Q10H [facility] Last Admin: 04/19/18 12:54 Dose: Not Given Fluconazole (Diflucan Iv 200 Mg/100 Ml Ns) 100 mls @ 100 mls/hr IVPB Q24H [facility]; Protocol Last Admin: 04/19/18 10:01 Dose: 100 mls/hr Midodrine (Proamatine) 5 mg PO TID [facility] Last Admin: 04/19/18 13:43 Dose: 5 mg Morphine Sulfate (Morphine) 2 mg IV Q2H PRN PRN Reason: Pain, moderate (4-7) Last Admin: 04/19/18 06:12 Dose: 2 mg Pantoprazole Sodium (Protonix Inj) 40 mg IVP Q12H [facility] Last Admin: 04/19/18 08:22 Dose: 40 mg Saliva Substitute (First Magic Mouthwash) 10 ml PO Q6 [facility] Last Admin: 04/19/18 12:57 Dose: 10 ml - Labs Labs: 04/17/18 06:37 04/17/18 06:37 PT 16.8 SECONDS (9.7-12.2) H 04/12/18 06:10 INR 1.5 04/12/18 06:10 APTT 28 SECONDS (21-34) 04/12/18 06:10
--- NOTE | 2018-04-19 18:04 | PN ---
DATE: 04/19/2018 SUBJECTIVE: The patient is feeling better, but she was in aches and pain as they had turned her around to clean her. She denies any other pains. No nausea, no vomiting. She does have some abdominal pain. PHYSICAL EXAMINATION: VITAL SIGNS: T-max is 98.8, pulse 90, blood pressure 102/68, respirations are 20. GASTROINTESTINAL: She has soft stools, but no blood. HEAD: Atraumatic, normocephalic, left side Port-A-Cath present. NECK: Supple. LUNGS: Clear. HEART: S1 and S2 regular. ABDOMEN: Soft, nontender. No guarding, no rigidity present. EXTREMITIES: Have edema and obesity. LABORATORY DATA: Her white count last was 1.8, would repeat the CBC tomorrow. Potassium was 3.4, will need to be repeated. ASSESSMENT AND PLAN: The patient is on Zosyn and Diflucan as per the cultures because wound culture came out Staphylococcus aureus and urine appeared as yeast. At this time, we will order new labs for tomorrow and we will follow with the consultants. The patient did have Bacteroides fragilis in the blood and this is an anaerobe seen in malignancies. We will continue six more days of Zosyn and Diflucan, and we will follow. To repeat labs again as patient was pancytopenic and status post chemotherapy and is clinically improving, but I want to check the numbers at this time. Jacqueline Saez MD
[2018-04-20] MEDS: Mag&Al/Simet/Diphen/Lido 237 ML KIT PO SCH ×3 (00:23→18:30)
[2018-04-20] MEDS: Morphine 4 MG/ML VIAL IV PRN ×2 (02:01→11:41)
[2018-04-20] MEDS: Piperacillin/Tazobact 3.375 GM in Sodium Chloride 100 ML IVPB SCH ×3 (02:50→17:45)
[2018-04-20 08:34] LABS: BASO % 0.3 % (0.0-2.0); HEMOGLOBIN 8.7 g/dL (11.0-16.0); LYMPH # 0.4 K/uL (1.0-4.3); MEAN CELL VOLUME 82.7 fL (81.0-99.0); MEAN CORPUSCULAR HEMOGLOBIN 27.8 pg (27.0-31.0); MEAN CORPUSCULAR HGB CONC 33.6 g/dL (33.0-37.0); MEAN PLATELET VOLUME 7.9 fL (7.2-11.7); MONO # 0.4 K/uL (0.0-0.8); MONO % 22.2 % (0.0-10.0); NEUT # 1.1 K/uL (1.8-7.0); NEUT % 56.5 % (50.0-75.0); NRBC % 0.1 % (0.0-2.0); RBC 3.12 Mil/uL (3.80-5.20); RED CELL DISTRIBUTION WIDTH 17.3 % (11.5-14.5)
[2018-04-20 08:46] LABS: WHITE BLOOD COUNT 1.9 K/uL (4.8-10.8)
[2018-04-20 08:47] LABS: PLATELET COUNT 57 K/uL (130-400)
[2018-04-20 09:01] LABS: ALB/GLOB RATIO 0.9 (1.0-2.1); ALBUMIN 2.3 g/dL (3.5-5.0); ALT/SGPT 18 U/L (9-52); AST/SGOT 16 U/L (14-36); CALCIUM 6.9 mg/dl (8.6-10.4); GFR NON-AFRICAN AMERICAN > 60
[2018-04-20 09:17] LABS: BLOOD UREA NITROGEN 2 mg/dL (7-17)
[2018-04-20 09:42] LABS: ANISOCYTOSIS SLIGHT; LYMPHOCYTE 22 % (20-40); MONOCYTE 20 % (0-10); MYELOCYTE 2 % (0-0); NEUTROPHIL 56 % (50-75); PLATELET ESTIMATE DECREASED (NORMAL); TOTAL CELLS COUNTED 50
[2018-04-20 09:43] LABS: BURR CELLS SLIGHT; HYPOCHROMIC SLIGHT; POIKILOCYTOSIS SLIGHT; TEARDROP CELLS SLIGHT
[2018-04-20 09:44] LABS: OVALOCYTES SLIGHT; POLYCHROMIC SLIGHT
[2018-04-20] MEDS: Fluconazole IV 200mg/100 ml NS 100 ML IVPB SCH (11:40)
--- NOTE | 2018-04-20 14:20 | CP.PCM.PN ---
Subjective - Date & Time of Evaluation Date of Evaluation: 04/20/18 Time of Evaluation: 13:00 - Subjective Subjective: dictated Objective - Vital Signs/Intake and Output Vital Signs (last 24 hours): Temp Pulse Resp BP Pulse Ox 98 F 90 20 109/73 99 04/20/18 07:00 04/20/18 07:00 04/20/18 07:00 04/20/18 07:00 04/20/18 07:00 Intake and Output: 04/20/18 04/20/18 06:59 18:59 Intake Total 1840 Output Total 1150 Balance 690 - Medications Medications: Current Medications Piperacillin Sod/Tazobactam (Sod 3.375 gm/ Sodium Chloride) 100 mls @ 200 mls/hr IVPB Q8H [facility]; Protocol Last Admin: 04/20/18 13:18 Dose: 200 mls/hr Fluconazole (Diflucan Iv 200 Mg/100 Ml Ns) 100 mls @ 100 mls/hr IVPB Q24H [facility]; Protocol Last Admin: 04/20/18 11:40 Dose: 100 mls/hr Potassium Chloride (Potassium Chloride 20 Meq/100 Ml) 20 meq in 100 mls @ 50 mls/hr IVPB Q2H [facility] Stop: 04/20/18 15:29 Last Admin: 04/20/18 13:22 Dose: 50 mls/hr Potassium Chloride (Potassium Chloride 20 Meq/100 Ml) 20 meq in 100 mls @ 50 mls/hr IVPB ONCE ONE Stop: 04/20/18 15:59 Midodrine (Proamatine) 5 mg PO TID [facility] Last Admin: 04/20/18 09:35 Dose: 5 mg Morphine Sulfate (Morphine) 2 mg IV Q2H PRN PRN Reason: Pain, moderate (4-7) Last Admin: 04/20/18 11:41 Dose: 2 mg Pantoprazole Sodium (Protonix Inj) 40 mg IVP Q12H [facility] Last Admin: 04/20/18 08:45 Dose: 40 mg Saliva Substitute (First Magic Mouthwash) 10 ml PO Q6 [facility] Last Admin: 04/20/18 00:23 Dose: 10 ml - Labs Labs: 04/20/18 08:22 04/20/18 08:22 PT 16.8 SECONDS (9.7-12.2) H 04/12/18 06:10 INR 1.5 04/12/18 06:10 APTT 28 SECONDS (21-34) 04/12/18 06:10
--- NOTE | 2018-04-20 16:38 | CP.PCM.PN ---
Subjective - Date & Time of Evaluation Date of Evaluation: 04/20/18 Time of Evaluation: 16:37 Objective - Vital Signs/Intake and Output Vital Signs (last 24 hours): Temp Pulse Resp BP Pulse Ox 98 F 90 20 109/73 99 04/20/18 07:00 04/20/18 07:00 04/20/18 07:00 04/20/18 07:00 04/20/18 07:00 Intake and Output: 04/20/18 04/20/18 06:59 18:59 Intake Total 1840 Output Total 1150 Balance 690 - Medications Medications: Current Medications Piperacillin Sod/Tazobactam (Sod 3.375 gm/ Sodium Chloride) 100 mls @ 200 mls/hr IVPB Q8H [facility]; Protocol Last Admin: 04/20/18 13:18 Dose: 200 mls/hr Fluconazole (Diflucan Iv 200 Mg/100 Ml Ns) 100 mls @ 100 mls/hr IVPB Q24H [facility]; Protocol Last Admin: 04/20/18 11:40 Dose: 100 mls/hr Midodrine (Proamatine) 5 mg PO TID [facility] Last Admin: 04/20/18 14:40 Dose: 5 mg Morphine Sulfate (Morphine) 2 mg IV Q2H PRN PRN Reason: Pain, moderate (4-7) Last Admin: 04/20/18 11:41 Dose: 2 mg Pantoprazole Sodium (Protonix Inj) 40 mg IVP Q12H [facility] Last Admin: 04/20/18 08:45 Dose: 40 mg Saliva Substitute (First Magic Mouthwash) 10 ml PO Q6 [facility] Last Admin: 04/20/18 00:23 Dose: 10 ml - Labs Labs: 04/20/18 08:22 04/20/18 08:22 PT 16.8 SECONDS (9.7-12.2) H 04/12/18 06:10 INR 1.5 04/12/18 06:10 APTT 28 SECONDS (21-34) 04/12/18 06:10
--- NOTE | 2018-04-20 18:58 | PN ---
DATE: 04/20/2018 SUBJECTIVE: The patient is very awake and alert. She denies any complaints. She is getting antibiotics and she says when she lies on the right side, her wounds hurt and she did have multiple wounds and I have told her to change her position. She denies any blood in the stool right now; however, she remains leukopenic. PHYSICAL EXAMINATION: VITAL SIGNS: T-max is 98, pulse is 90, blood pressure 109/73, respirations are 20. HEAD: Atraumatic, normocephalic. NECK: Supple. She has pallor. LUNGS: Clear. She has a Port-A-Cath. HEART: S1 and S2 is regular. ABDOMEN: Soft, nontender. No guarding, no rigidity present. EXTREMITIES: Have edema and obesity. LABORATORY DATA: White count is 1.9, hemoglobin 8.7, hematocrit 25.8, platelet count is 57. Potassium is 2.4, needs to be supplemented. ASSESSMENT AND PLAN: At this time her medications, she is on Zosyn and Diflucan. She did have bacteroides in the blood and since she is immunosuppressed I wanted to give the anaerobic coverage for another 4 days and will continue this and maybe she can get Neupogen or filgrastim to bring up her WBC count which still remains low. However, her platelets are improving, so we will continue the present treatment. I will order another urine culture. If she has a Hardy maybe we can change the Hardy. We will order a UA and a urine culture for now. The patient came in with pancytopenia and with sepsis, is improving but remains leukopenic because of the recent chemotherapy, needs to be followed with Dr. Gibson. Potassium needs to be supplemented. Jacqueline Saez MD
[2018-04-20 19:52] LABS: BLOOD UREA NITROGEN 2 mg/dL (7-17); CALCIUM 7.2 mg/dl (8.6-10.4); GFR NON-AFRICAN AMERICAN > 60
[2018-04-20] MEDS: Potassium Ch 20mEq in D5-1/2NS 1,000 ML IV SCH (21:19)
[2018-04-20] MEDS: Magnesium Sulfate 1 gm in D5W 1 GM/100 ML BAG IVPB SCH ×2 (21:20→22:54)
[2018-04-21] MEDS: Mag&Al/Simet/Diphen/Lido 237 ML KIT PO SCH ×4 (00:44→19:29)
[2018-04-21] MEDS: Piperacillin/Tazobact 3.375 GM in Sodium Chloride 100 ML IVPB SCH ×3 (03:06→19:29)
[2018-04-21 07:48] LABS: BASO % 0.5 % (0.0-2.0); HEMOGLOBIN 8.1 g/dL (11.0-16.0); LYMPH # 0.4 K/uL (1.0-4.3); LYMPH % 15.4 % (20.0-40.0); MEAN CELL VOLUME 82.5 fL (81.0-99.0); MEAN CORPUSCULAR HEMOGLOBIN 27.9 pg (27.0-31.0); MEAN CORPUSCULAR HGB CONC 33.8 g/dL (33.0-37.0); MEAN PLATELET VOLUME 7.9 fL (7.2-11.7); MONO # 0.4 K/uL (0.0-0.8); MONO % 17.7 % (0.0-10.0); NEUT # 1.6 K/uL (1.8-7.0); NEUT % 66.4 % (50.0-75.0); NRBC % 0.3 % (0.0-2.0); RBC 2.91 Mil/uL (3.80-5.20); RED CELL DISTRIBUTION WIDTH 17.5 % (11.5-14.5); WHITE BLOOD COUNT 2.4 K/uL (4.8-10.8)
[2018-04-21 08:18] LABS: BLOOD UREA NITROGEN 2 mg/dL (7-17); CALCIUM 6.9 mg/dl (8.6-10.4); GFR NON-AFRICAN AMERICAN > 60
[2018-04-21] MEDS: Magnesium Sulfate 1 gm in D5W 1 GM/100 ML BAG IVPB SCH ×4 (09:13→11:36)
[2018-04-21] MEDS: Morphine 4 MG/ML VIAL IV PRN (11:43)
[2018-04-21] MEDS: Fluconazole IV 200mg/100 ml NS 100 ML IVPB SCH (11:57)
[2018-04-21] MEDS: Potassium Ch 20mEq in D5-1/2NS 1,000 ML IV SCH (14:00)
--- NOTE | 2018-04-21 18:55 | CP.PCM.PN ---
Subjective - Date & Time of Evaluation Date of Evaluation: 04/21/18 Time of Evaluation: 18:55 Objective - Vital Signs/Intake and Output Vital Signs (last 24 hours): Temp Pulse Resp BP Pulse Ox 97.9 F 95 H 20 117/73 99 04/21/18 07:00 04/21/18 07:00 04/21/18 07:00 04/21/18 07:00 04/21/18 07:00 Intake and Output: 04/21/18 04/21/18 06:59 18:59 Intake Total 740 1400 Output Total 1200 750 Balance -460 650 - Medications Medications: Current Medications Calcium Carbonate (Oscal) 500 mg PO DAILY [facility] Last Admin: 04/21/18 11:38 Dose: 500 mg Piperacillin Sod/Tazobactam (Sod 3.375 gm/ Sodium Chloride) 100 mls @ 200 mls/h r IVPB Q8H [facility]; Protocol Last Admin: 04/21/18 13:46 Dose: 200 mls/hr Fluconazole (Diflucan Iv 200 Mg/100 Ml Ns) 100 mls @ 100 mls/hr IVPB Q24H [facility]; Protocol Last Admin: 04/21/18 11:57 Dose: 100 mls/hr Potassium Chloride/Dextrose/Sod Cl (Potassium Chl 20 Meq In D5-1/2ns) 1,000 mls @ 50 mls/hr IV .Q20H [facility] Last Admin: 04/21/18 14:00 Dose: Not Given Midodrine (Proamatine) 5 mg PO TID [facility] Last Admin: 04/21/18 14:09 Dose: 5 mg Morphine Sulfate (Morphine) 2 mg IV Q2H PRN PRN Reason: Pain, moderate (4-7) Last Admin: 04/21/18 11:43 Dose: 2 mg Pantoprazole Sodium (Protonix Inj) 40 mg IVP Q12H [facility] Last Admin: 04/21/18 09:23 Dose: 40 mg Saliva Substitute (First Magic Mouthwash) 10 ml PO Q6 [facility] Last Admin: 04/21/18 12:20 Dose: Not Given - Labs Labs: 04/21/18 07:23 04/21/18 07:23 PT 16.8 SECONDS (9.7-12.2) H 04/12/18 06:10 INR 1.5 04/12/18 06:10 APTT 28 SECONDS (21-34) 04/12/18 06:10
[2018-04-22] MEDS: Morphine 4 MG/ML VIAL IV PRN ×3 (00:23→22:53)
[2018-04-22] MEDS: Mag&Al/Simet/Diphen/Lido 237 ML KIT PO SCH ×4 (00:27→18:07)
[2018-04-22] MEDS: Piperacillin/Tazobact 3.375 GM in Sodium Chloride 100 ML IVPB SCH ×3 (03:39→19:04)
[2018-04-22] MEDS: Potassium Ch 20mEq in D5-1/2NS 1,000 ML IV SCH ×3 (03:40→21:29)
[2018-04-22 07:34] LABS: BASO % 0.7 % (0.0-2.0); LYMPH # 0.4 K/uL (1.0-4.3); LYMPH % 17.1 % (20.0-40.0); MEAN CELL VOLUME 82.9 fL (81.0-99.0); MEAN CORPUSCULAR HEMOGLOBIN 27.8 pg (27.0-31.0); MEAN CORPUSCULAR HGB CONC 33.5 g/dL (33.0-37.0); MEAN PLATELET VOLUME 7.2 fL (7.2-11.7); MONO # 0.5 K/uL (0.0-0.8); MONO % 17.8 % (0.0-10.0); NEUT # 1.6 K/uL (1.8-7.0); NEUT % 64.4 % (50.0-75.0); NRBC % 0.3 % (0.0-2.0); RBC 2.9 Mil/uL (3.80-5.20); RED CELL DISTRIBUTION WIDTH 17.8 % (11.5-14.5); WHITE BLOOD COUNT 2.6 K/uL (4.8-10.8)
[2018-04-22] MEDS: Fluconazole IV 200mg/100 ml NS 100 ML IVPB SCH (10:45)
--- NOTE | 2018-04-22 14:21 | CP.PCM.PN ---
Subjective - Date & Time of Evaluation Date of Evaluation: 04/22/18 Time of Evaluation: 14:21 Objective - Vital Signs/Intake and Output Vital Signs (last 24 hours): Temp Pulse Resp BP Pulse Ox 98.8 F 96 H 20 97/64 L 100 04/22/18 07:00 04/22/18 07:00 04/22/18 07:00 04/22/18 07:00 04/22/18 07:00 Intake and Output: 04/22/18 04/22/18 06:59 18:59 Intake Total 820 Output Total 950 Balance -130 - Medications Medications: Current Medications Calcium Carbonate (Oscal) 500 mg PO DAILY [facility] Last Admin: 04/22/18 10:44 Dose: 500 mg Piperacillin Sod/Tazobactam (Sod 3.375 gm/ Sodium Chloride) 100 mls @ 200 mls/hr IVPB Q8H [facility]; Protocol Last Admin: 04/22/18 11:28 Dose: 200 mls/hr Fluconazole (Diflucan Iv 200 Mg/100 Ml Ns) 100 mls @ 100 mls/hr IVPB Q24H [facility]; Protocol Last Admin: 04/22/18 10:45 Dose: 100 mls/hr Potassium Chloride/Dextrose/Sod Cl (Potassium Chl 20 Meq In D5-1/2ns) 1,000 mls @ 50 mls/hr IV .Q20H [facility] Last Admin: 04/22/18 10:54 Dose: Not Given Midodrine (Proamatine) 5 mg PO TID [facility] Last Admin: 04/22/18 11:41 Dose: 5 mg Morphine Sulfate (Morphine) 2 mg IV Q2H PRN PRN Reason: Pain, moderate (4-7) Last Admin: 04/22/18 12:21 Dose: 2 mg Pantoprazole Sodium (Protonix Inj) 40 mg IVP Q12H [facility] Last Admin: 04/22/18 08:55 Dose: 40 mg Saliva Substitute (First Magic Mouthwash) 10 ml PO Q6 [facility] Last Admin: 04/22/18 13:48 Dose: Not Given - Labs Labs: 04/22/18 07:16 04/21/18 07:23 PT 16.8 SECONDS (9.7-12.2) H 04/12/18 06:10 INR 1.5 04/12/18 06:10 APTT 28 SECONDS (21-34) 04/12/18 06:10
--- NOTE | 2018-04-22 18:31 | PN ---
DATE: 04/22/2018 SUBJECTIVE: The patient is improving. She is clinically better. She, however, has to complete antibiotic course. T-max is 98.8, pulse 96, blood pressure remains on low side 97/64, respirations are 20. She still has a low white count. Head is atraumatic, normocephalic. She denies any chest pain. No shortness of breath. Her abdominal pain is getting better. She still has back wounds. She is eating better. Her Port-A-Cath is functioning normal. OBJECTIVE: LUNGS: Clear. HEART: S1, S2 is regular. ABDOMEN: Soft, nontender. No guarding, no rigidity present. EXTREMITIES: Have no edema. ASSESSMENT AND PLAN: Her wound had oxacillin-sensitive Staphylococcus which was clindamycin sensitive but she came in with diarrhea and occult bleeding and bleeding per rectum, so we are not going to use clindamycin when she goes. At this time, I have continued Zosyn as she had Bacteroides caccae which came from the belly. She had chemotherapy and radiation. She is completing 10 days on it and by Wednesday will be done with the Zosyn, at that time she probably can go back. She is also being in look for a rehab as she does have decubitus, pancytopenia and malignancy with metastatic disease and may need rehab. Jacqueline Saez MD
[2018-04-23] MEDS: Mag&Al/Simet/Diphen/Lido 237 ML KIT PO SCH ×4 (00:48→18:04)
[2018-04-23] MEDS: Piperacillin/Tazobact 3.375 GM in Sodium Chloride 100 ML IVPB SCH ×3 (03:25→19:53)
[2018-04-23] MEDS: Potassium Ch 20mEq in D5-1/2NS 1,000 ML IV SCH (06:11)
[2018-04-23] MEDS: Fluconazole IV 200mg/100 ml NS 100 ML IVPB SCH (13:42)
[2018-04-23 14:40] LABS: BLOOD UREA NITROGEN 2 mg/dL (7-17); CALCIUM 7.9 mg/dl (8.6-10.4); GFR NON-AFRICAN AMERICAN > 60
[2018-04-23] MEDS: Magnesium Sulfate 1 gm in D5W 1 GM/100 ML BAG IVPB SCH ×2 (15:47→16:20)
--- NOTE | 2018-04-23 16:49 | CP.PCM.PN ---
Subjective - Date & Time of Evaluation Date of Evaluation: 04/23/18 Time of Evaluation: 16:49 Objective - Vital Signs/Intake and Output Vital Signs (last 24 hours): Temp Pulse Resp BP Pulse Ox 98.2 F 91 H 20 112/79 100 04/23/18 15:27 04/23/18 15:27 04/23/18 15:27 04/23/18 15:27 04/23/18 15:27 Intake and Output: 04/23/18 04/23/18 06:59 18:59 Intake Total 400 Output Total 1100 Balance -700 - Medications Medications: Current Medications Calcium Carbonate (Oscal) 500 mg PO DAILY [facility] Last Admin: 04/23/18 10:04 Dose: 500 mg Piperacillin Sod/Tazobactam (Sod 3.375 gm/ Sodium Chloride) 100 mls @ 200 mls/hr IVPB Q8H [facility]; Protocol Last Admin: 04/23/18 13:38 Dose: 200 mls/hr Fluconazole (Diflucan Iv 200 Mg/100 Ml Ns) 100 mls @ 100 mls/hr IVPB Q24H [facility]; Protocol Last Admin: 04/23/18 13:42 Dose: 100 mls/hr Potassium Chloride/Dextrose/Sod Cl (Potassium Chl 20 Meq In D5-1/2ns) 1,000 mls @ 50 mls/hr IV .Q20H [facility] Last Admin: 04/23/18 06:11 Dose: Not Given Midodrine (Proamatine) 5 mg PO TID [facility] Last Admin: 04/23/18 13:37 Dose: 5 mg Morphine Sulfate (Morphine) 2 mg IV Q2H PRN PRN Reason: Pain, moderate (4-7) Last Admin: 04/22/18 22:53 Dose: 2 mg Pantoprazole Sodium (Protonix Inj) 40 mg IVP Q12H [facility] Last Admin: 04/23/18 10:04 Dose: 40 mg Saliva Substitute (First Magic Mouthwash) 10 ml PO Q6 [facility] Last Admin: 04/23/18 14:46 Dose: Not Given - Labs Labs: 04/22/18 07:16 04/23/18 14:11 PT 16.8 SECONDS (9.7-12.2) H 04/12/18 06:10 INR 1.5 04/12/18 06:10 APTT 28 SECONDS (21-34) 04/12/18 06:10
[2018-04-23] MEDS: Morphine 4 MG/ML VIAL IV PRN (22:25)
[2018-04-24] MEDS: Mag&Al/Simet/Diphen/Lido 237 ML KIT PO SCH ×5 (00:33→23:55)
[2018-04-24] MEDS: Piperacillin/Tazobact 3.375 GM in Sodium Chloride 100 ML IVPB SCH ×3 (03:10→20:45)
[2018-04-24] MEDS: Fluconazole IV 200mg/100 ml NS 100 ML IVPB SCH (10:09)
--- NOTE | 2018-04-24 13:09 | CP.PCM.PN ---
Subjective - Date & Time of Evaluation Date of Evaluation: 04/24/18 Time of Evaluation: 13:09 Objective - Vital Signs/Intake and Output Vital Signs (last 24 hours): Temp Pulse Resp BP Pulse Ox 97.9 F 100 H 20 109/74 100 04/24/18 07:00 04/24/18 07:00 04/24/18 07:00 04/24/18 07:00 04/24/18 07:00 Intake and Output: 04/24/18 04/24/18 06:59 18:59 Output Total 700 Balance -700 - Medications Medications: Current Medications Calcium Carbonate (Oscal) 500 mg PO DAILY [facility] Last Admin: 04/24/18 09:36 Dose: 500 mg Piperacillin Sod/Tazobactam (Sod 3.375 gm/ Sodium Chloride) 100 mls @ 200 mls/hr IVPB Q8H [facility]; Protocol Last Admin: 04/24/18 11:41 Dose: 200 mls/hr Fluconazole (Diflucan Iv 200 Mg/100 Ml Ns) 100 mls @ 100 mls/hr IVPB Q24H [facility]; Protocol Last Admin: 04/24/18 10:09 Dose: 100 mls/hr Midodrine (Proamatine) 5 mg PO TID [facility] Last Admin: 04/24/18 09:35 Dose: 5 mg Pantoprazole Sodium (Protonix Inj) 40 mg IVP Q12H [facility] Last Admin: 04/24/18 09:30 Dose: 40 mg Saliva Substitute (First Magic Mouthwash) 10 ml PO Q6 [facility] Last Admin: 04/24/18 06:08 Dose: 10 ml - Labs Labs: 04/22/18 07:16 04/23/18 14:11 PT 16.8 SECONDS (9.7-12.2) H 04/12/18 06:10 INR 1.5 04/12/18 06:10 APTT 28 SECONDS (21-34) 04/12/18 06:10
[2018-04-24] MEDS ORDERED: Potassium Chloride 20 mEq ER Tab PO ONE (18:00)
[2018-04-25] MEDS: Piperacillin/Tazobact 3.375 GM in Sodium Chloride 100 ML IVPB SCH ×3 (03:04→19:09)
[2018-04-25] MEDS: Mag&Al/Simet/Diphen/Lido 237 ML KIT PO SCH ×3 (05:42→17:19)
[2018-04-25 07:54] LABS: ALB/GLOB RATIO 0.9 (1.0-2.1); ALBUMIN 2.8 g/dL (3.5-5.0); ALT/SGPT 16 U/L (9-52); AST/SGOT 16 U/L (14-36); BLOOD UREA NITROGEN 4 mg/dL (7-17); CALCIUM 8.3 mg/dl (8.6-10.4); GFR NON-AFRICAN AMERICAN > 60
[2018-04-25] MEDS: Morphine 4 MG/ML VIAL IV PRN (09:00)
[2018-04-25 09:09] LABS: BASO % 0.6 % (0.0-2.0); LYMPH # 0.4 K/uL (1.0-4.3); LYMPH % 8.5 % (20.0-40.0); MEAN CELL VOLUME 84.7 fL (81.0-99.0); MEAN CORPUSCULAR HEMOGLOBIN 27.9 pg (27.0-31.0); MEAN CORPUSCULAR HGB CONC 32.9 g/dL (33.0-37.0); MEAN PLATELET VOLUME 7.6 fL (7.2-11.7); MONO # 0.9 K/uL (0.0-0.8); MONO % 18.2 % (0.0-10.0); NEUT # 3.7 K/uL (1.8-7.0); NEUT % 72.7 % (50.0-75.0); NRBC % 0.3 % (0.0-2.0); RBC 3.22 Mil/uL (3.80-5.20); RED CELL DISTRIBUTION WIDTH 18.4 % (11.5-14.5)
[2018-04-25 09:19] LABS: PLATELET COUNT 260 K/uL (130-400); WHITE BLOOD COUNT 5.1 K/uL (4.8-10.8)
--- NOTE | 2018-04-25 09:28 | PN ---
DATE: 04/24/2018 LOCATION: 656, bed B. SUBJECTIVE: This 58-year-old female in a state of DNR and DNI, seen and examined again in rounds as requested by the admitting medical staff without significant clinical changes or reported active bleeding. The entire chart is reviewed including but not limited to the most recent lab and radiology study results, current and previous medication list, current and previous medical events. Case discussed at length with the staff in the floor. Today's lab results showed blood glucose level of 79. Rest of lab results is still pending. PHYSICAL EXAMINATION: GENERAL: A 58-year-old female. VITAL SIGNS: Afebrile with pulse of 98, respiratory rate 20-22, blood pressure 110/72. HEENT: Showed pale dry oral mucous membrane, slight icteric sclerae bilaterally. HEART: Positive S1 and S2. ABDOMEN: Soft. Bowel sounds are hypoactive. No mass or organomegaly. No rebound tenderness or guarding. EXTREMITIES: With lower extremity edematous changes. No clubbing or cyanosis. IMPRESSION: 1. Known history of metastatic breast carcinoma. 2. Pancytopenia secondary to above. 3. Malnutrition, hypoalbuminemia. 4. Reported history of depression. 5. Reported history of gastrointestinal blood loss, subsiding. 6. Sacral ulceration, electrolyte imbalance with known history of obesity. 7. The possibility of a recent episode of ischemic bowel syndrome was raised, subsided. SUGGESTIONS: 1. Continue current management. 2. The patient will need PEG insertion due to the poor oral intake. Further recommendation to follow. Verito Fish MD
[2018-04-25 10:13] LABS: LYMPHOCYTE 4 % (20-40); MONOCYTE 16 % (0-10); NEUTROPHIL 80 % (50-75); NUCLEATED RED BLOOD CELL 1 % (0-0); TOTAL CELLS COUNTED 100
[2018-04-25 10:14] LABS: PLATELET ESTIMATE NORMAL (NORMAL)
[2018-04-25 10:15] LABS: ANISOCYTOSIS MODERATE; HYPOCHROMIC SLIGHT
[2018-04-25] MEDS: Potassium Chloride 20 mEq/15 ml LIQ UD PO SCH ×3 (11:40→19:50)
[2018-04-25] MEDS: Magnesium Sulfate 1 gm/100 mL D5W IVPB SCH ×4 (11:41→15:51)
[2018-04-25] MEDS: Fluconazole IV 200mg/100 ml NS 100 ML IVPB SCH (12:12)
--- NOTE | 2018-04-25 13:41 | CP.PCM.CON ---
History of Present Illness - History of Present Illness History of Present Illness: Nephrology Consultation Note: Assessment: Stable Hypomagnesemia Hypokalemia ? due to PPI versus poor oral intake/malnutrition versus [place] based chemotherapy induced renal wasting Hyponatremia Hypoalbuminemia Obesity, Colitis, GI bleed pancytopenia metastatic breast CA Plan renal function stable and WNL Hypertension control with meds as ordered. Maintain hemodynamics stable. Avoid hypotension. Monitor Input/Output, daily weights and renal function with basic metabolic panel supplemneted KCL and IV mag today check urine Na, K, Cl, Mag, Osmol. Serum Osmol, uric acid Dose meds/antibiotics for normal GFR. Glycemic control. pt was encouraged to eat protein food Further work up/management as per primary team Thanks for allowing me to participate in care of your patient. Will follow patient with you. Please call if any Qs. had d/w team Dr Ton Zelaya Office: [phone] Chief Complaint; low appetite Reason for consult: electrolytes abnormalities HPI: Pt is a 58 F with hx of hypertension obesity metastatic breast CA involving brain, sp radiation, presently on chemo with carboplatin and gemcitabine presented with complaints of paina abdomen and diarrhoea, admitted with ? GI bleed, colitis and pancytopenia. renal consult for electrolytes abnormalities such as low Na, Ca, Mg, K Denies OTC/herbal meds or NSAIDs c/o decreased appetite, loss of taste. no SOB. no further diarrhoea. oral intake poor ROS: Cardiovascular: No chest pain. Pulmonary: no shortness of breath Gastrointestinal: denies abdominal pain No nausea. No vomiting. Genitourinary: No pain while urinating. Denies blood in urine. All other negative except as mentioned in HPI Physical Examination: General Appearance: Comfortable, in no acute respiratory distress, co-operative . obese Vitals reviewed and noted as below Head; Atraumatic, normocephalic. skin hyperpigmented ENT: no ulcers no thrush. Tongue is midline. Oropharynx: no rash or ulcers. EYES: Pupils are equal, round and reactive to light accommodation. Eye muscles and extraocular movement intact. Sclera is anicteric. Neck; supple no lymphadenopathy, no thyromegaly or bruit Lungs: Normal respiratory rate/effort. Breath sounds bilateral equal and clear Heart: Normal rate. s1s2 normal. No rub or gallop. Extremities: 1+ edema. No varicose veins. RUE lymphedema + Neurological: Patient is alert, awake and oriented to person, place and time. No focal deficit. Strength bilateral appropriate and equal Skin: Warm and dry. Normal turgor. No rash. Palpitation: Normal elasticity for age Abdomen: Abdomen is soft. Bowel sounds +. There is no abdominal tenderness, no guarding/rigidity no organomegaly Psych: normal insight and normal affect/mood MSK: no joint tenderness or swelling. Digits and nails normal, no deformity : kidney or bladder not palpable Labs/imaging reviewed. Past medical history, past surgical history, family history, social history, allergy reviewed and noted as below Family hx: no hx of CKD. Rest non-contributory Past Patient History - Infectious Disease Hx of Infectious Diseases: None - Past Medical History & Family History Past Medical History?: Yes - Past Social History Smoking Status: Never Smoked - CARDIAC Hx Congestive Heart Failure: No Hx Hypercholesterolemia: No Hx Hypertension: Yes - PULMONARY Hx Chronic Obstructive Pulmonary Disease (COPD): No - NEUROLOGICAL Hx Neurological Disorder: No - HEENT Hx HEENT Problems: No Other/Comment: GLASSES - RENAL Hx Chronic Kidney Disease: No - ENDOCRINE/METABOLIC Hx Endocrine Disorders: No - HEMATOLOGICAL/ONCOLOGICAL Hx Cancer: Yes (breast 2018; mets to bone) Other/Comment: in chemotherapy every wednesday - INTEGUMENTARY Hx Dermatological Problems: No - MUSCULOSKELETAL/RHEUMATOLOGICAL Hx Fractures: Yes (TOE/ARM NO SURGERY) - GENITOURINARY/GYNECOLOGICAL Hx Genitourinary Disorders: Yes Other/Comment: right breast cancer - PSYCHIATRIC Hx Substance Use: No - SURGICAL HISTORY Hx Surgeries: Yes Hx Section: Yes (one) Other/Comment: breast removal s/p breast ca july 2014. - ANESTHESIA Hx Anesthesia: Yes Hx Anesthesia Reactions: No Hx Malignant Hyperthermia: No Meds Allergies/Adverse Reactions: Allergies Allergy/AdvReac Type Severity Reaction Status Date / Time No Known Allergies Allergy Verified 02/23/18 14:57 - Medications Medications: Current Medications Calcium Carbonate (Oscal) 500 mg PO DAILY [facility] Last Admin: 04/25/18 09:01 Dose: 500 mg Piperacillin Sod/Tazobactam (Sod 3.375 gm/ Sodium Chloride) 100 mls @ 200 mls/hr IVPB Q8H [facility]; Protocol Last Admin: 04/25/18 11:40 Dose: 200 mls/hr Fluconazole (Diflucan Iv 200 Mg/100 Ml Ns) 100 mls @ 100 mls/hr IVPB Q24H [facility]; Protocol Last Admin: 04/25/18 12:12 Dose: 100 mls/hr Magnesium Sulfate/Dextrose (Magnesium Sulfate 1 Gm/100 Ml D5w) 1 gm IVPB Q1H [facility] Stop: 04/25/18 15:01 Last Admin: 04/25/18 13:11 Dose: 1 gm Midodrine (Proamatine) 5 mg PO TID [facility] Last Admin: 04/25/18 13:11 Dose: 5 mg Morphine Sulfate (Morphine) 2 mg IV Q2 PRN PRN Reason: pain Last Admin: 04/25/18 09:00 Dose: 2 mg Pantoprazole Sodium (Protonix Inj) 40 mg IVP Q12H [facility] Last Admin: 04/25/18 09:00 Dose: 40 mg Potassium Chloride (Potassium Chloride Oral Soln) 40 meq PO Q4 [facility] Stop: 04/26/18 00:01 Last Admin: 04/25/18 11:40 Dose: 40 meq Saliva Substitute (First Magic Mouthwash) 10 ml PO Q6 [facility] Last Admin: 04/25/18 12:12 Dose: Not Given Results - Vital Signs Recent Vital Signs: Last Vital Signs Temp 98.5 F 04/25/18 07:00 Pulse 100 H 04/25/18 07:00 Resp 20 04/25/18 07:00 BP 123/75 04/25/18 07:00 Pulse Ox 100 04/25/18 07:00 - Labs Result Diagrams: 04/25/18 07:27 04/25/18 07:27 Labs: Laboratory Results - last 24 hr 04/24/18 04/25/18 04/25/18 16:44 06:24 07:27 WBC 5.1 D RBC 3.22 L Hgb 9.0 L Hct 27.3 L MCV 84.7 MCH 27.9 MCHC 32.9 L RDW 18.4 H Plt Count 260 D MPV 7.6 Neut % (Auto) 72.7 Lymph % (Auto) 8.5 L [place] % (Auto) 18.2 H Eos % (Auto) 0.0 Baso % (Auto) 0.6 Neut # (Auto) 3.7 Lymph # (Auto) 0.4 L [place] # (Auto) 0.9 H Eos # (Auto) 0.0 Baso # (Auto) 0.0 Neutrophils % (Manual) 80 H Lymphocytes % (Manual) 4 L Monocytes % (Manual) 16 H Nucleated RBC % 1 H Platelet Estimate Normal Hypochromasia (manual) Slight Anisocytosis (manual) Moderate Sodium Potassium Chloride Carbon Dioxide Anion Gap BUN Creatinine Est GFR ( Amer) Est GFR (Non-Af Amer) POC Glucose (mg/dL) 83 93 Random Glucose Calcium Phosphorus Magnesium Total Bilirubin AST ALT Alkaline Phosphatase Total Protein Albumin Globulin Albumin/Globulin Ratio 04/25/18 04/25/18 07:27 11:35 WBC RBC Hgb Hct MCV MCH MCHC RDW Plt Count MPV Neut % (Auto) Lymph % (Auto) [place] % (Auto) Eos % (Auto) Baso % (Auto) Neut # (Auto) Lymph # (Auto) [place] # (Auto) Eos # (Auto) Baso # (Auto) Neutrophils % (Manual) Lymphocytes % (Manual) Monocytes % (Manual) Nucleated RBC % Platelet Estimate Hypochromasia (manual) Anisocytosis (manual) Sodium 132 Potassium 3.2 L Chloride 96 L Carbon Dioxide 30 Anion Gap 10 BUN 4 L Creatinine 0.4 L Est GFR ( Amer) > 60 Est GFR (Non-Af Amer) > 60 POC Glucose (mg/dL) 92 Random Glucose 85 Calcium 8.3 L Phosphorus 3.6 Magnesium 1.1 L Total Bilirubin 0.8 AST 16 ALT 16 Alkaline Phosphatase 133 H D Total Protein 6.0 L Albumin 2.8 L D Globulin 3.2 Albumin/Globulin Ratio 0.9 L
--- NOTE | 2018-04-25 19:32 | CP.PCM.PN ---
Subjective - Date & Time of Evaluation Date of Evaluation: 04/25/18 Time of Evaluation: 19:32 Objective - Vital Signs/Intake and Output Vital Signs (last 24 hours): Temp Pulse Resp BP Pulse Ox 97.9 F 90 20 111/77 99 04/25/18 15:00 04/25/18 15:00 04/25/18 15:00 04/25/18 15:00 04/25/18 15:00 Intake and Output: 04/25/18 04/26/18 18:59 06:59 Intake Total 400 Balance 400 - Medications Medications: Current Medications Calcium Carbonate (Oscal) 500 mg PO DAILY [facility] Last Admin: 04/25/18 09:01 Dose: 500 mg Piperacillin Sod/Tazobactam (Sod 3.375 gm/ Sodium Chloride) 100 mls @ 200 mls/hr IVPB Q8H [facility]; Protocol Last Admin: 04/25/18 19:09 Dose: 200 mls/hr Fluconazole (Diflucan Iv 200 Mg/100 Ml Ns) 100 mls @ 100 mls/hr IVPB Q24H [facility]; Protocol Last Admin: 04/25/18 12:12 Dose: 100 mls/hr Midodrine (Proamatine) 5 mg PO TID [facility] Last Admin: 04/25/18 17:21 Dose: 5 mg Morphine Sulfate (Morphine) 2 mg IV Q2 PRN PRN Reason: pain Last Admin: 04/25/18 09:00 Dose: 2 mg Pantoprazole Sodium (Protonix Inj) 40 mg IVP Q12H [facility] Last Admin: 04/25/18 09:00 Dose: 40 mg Potassium Chloride (Potassium Chloride Oral Soln) 40 meq PO Q4 [facility] Stop: 04/26/18 00:01 Last Admin: 04/25/18 17:20 Dose: 40 meq Saliva Substitute (First Magic Mouthwash) 10 ml PO Q6 [facility] Last Admin: 04/25/18 17:19 Dose: Not Given - Labs Labs: 04/25/18 07:27 04/25/18 07:27 PT 16.8 SECONDS (9.7-12.2) H 04/12/18 06:10 INR 1.5 04/12/18 06:10 APTT 28 SECONDS (21-34) 04/12/18 06:10
[2018-04-25 23:03] LABS: SQUAMOUS EPITHIAL 4 /hpf (0-5); URINE BACTERIA RARE (<OCC); URINE BILIRUBIN NEGATIVE (NEGATIVE); URINE BLOOD NEGATIVE (NEGATIVE); URINE CLARITY Hazy (Clear); URINE COLOR Yellow (YELLOW); URINE GLUCOSE (UA) NORMAL (Normal); URINE LEUKOCYTE ESTERASE NEG Leu/uL (Negative); URINE PROTEIN NEGATIVE (NEGATIVE); URINE UROBILINOGEN NORMAL mg/dL (0.2-1.0)
[2018-04-26] MEDS: Potassium Chloride 20 mEq/15 ml LIQ UD PO SCH (00:26)
[2018-04-26] MEDS: Morphine 4 MG/ML VIAL IV PRN ×3 (00:30→22:43)
[2018-04-26] MEDS: Mag&Al/Simet/Diphen/Lido 237 ML KIT PO SCH ×5 (00:59→23:56)
[2018-04-26] MEDS: Piperacillin/Tazobact 3.375 GM in Sodium Chloride 100 ML IVPB SCH ×3 (04:08→20:20)
[2018-04-26 08:07] LABS: BLOOD UREA NITROGEN 5 mg/dL (7-17); CALCIUM 8.3 mg/dl (8.6-10.4); GFR NON-AFRICAN AMERICAN > 60; URIC ACID 1.9 mg/dL (2.2-7.5)
[2018-04-26] MEDS: Fluconazole IV 200mg/100 ml NS 100 ML IVPB SCH (10:15)
[2018-04-26] MEDS: Magnesium Oxide 400 mg Tab UD PO SCH ×2 (11:07→18:55)
[2018-04-26] MEDS: Ergocalciferol 50,000 Intl Units Cap PO SCH (11:08)
--- NOTE | 2018-04-26 11:21 | CP.PCM.PN ---
Subjective - Date & Time of Evaluation Date of Evaluation: 04/26/18 Time of Evaluation: 11:20 - Subjective Subjective: Nephrology Consultation Note: Assessment: Stable Hypomagnesemia Hypokalemia ? due to PPI versus [place] based chemotherapy induced renal wasting Hyponatremia likely SIADH Hypoalbuminemia Obesity, Colitis, GI bleed pancytopenia metastatic breast CA vit d def Plan renal function stable and WNL Hypertension control with meds as ordered. Maintain hemodynamics stable. Avoid hypotension. Monitor Input/Output, daily weights and renal function with basic metabolic panel supplement lytes as needed consider appetite stimulants anemia management as per heme/onc added weekly vit d check FeMag. TTKG elevated at 7 suggested renal K wasting. Dose meds/antibiotics for normal GFR. Glycemic control. pt was encouraged to eat protein food Further work up/management as per primary team Thanks for allowing me to participate in care of your patient. Will follow patient with you. Please call if any Qs. had d/w team Dr Ton Zelaya Office: [phone] Chief Complaint; low appetite Reason for consult: electrolytes abnormalities HPI: Pt is a 58 F with hx of hypertension obesity metastatic breast CA involving brain, sp radiation, presently on chemo with carboplatin and gemcitabine presented with complaints of paina abdomen and diarrhoea, admitted with ? GI bleed, colitis and pancytopenia. renal consult for electrolytes abnormalities such as low Na, Ca, Mg, K Denies OTC/herbal meds or NSAIDs c/o decreased appetite, loss of taste. no SOB. no further diarrhoea. oral intake poor ROS: c/o leg swelling Cardiovascular: No chest pain. Pulmonary: no shortness of breath Gastrointestinal: denies abdominal pain No nausea. No vomiting. Genitourinary: No pain while urinating. Denies blood in urine. All other negative except as mentioned in HPI Physical Examination: General Appearance: Comfortable, in no acute respiratory distress, co-operative . obese Vitals reviewed and noted as below Head; Atraumatic, normocephalic. skin hyperpigmented ENT: no ulcers no thrush. Tongue is midline. Oropharynx: no rash or ulcers. EYES: Pupils are equal, round and reactive to light accommodation. Eye muscles and extraocular movement intact. Sclera is anicteric. Neck; supple no lymphadenopathy, no thyromegaly or bruit Lungs: Normal respiratory rate/effort. Breath sounds bilateral equal and clear Heart: Normal rate. s1s2 normal. No rub or gallop. Extremities: 1+ edema. No varicose veins. RUE lymphedema + Neurological: Patient is alert, awake and oriented to person, place and time. No focal deficit. Strength bilateral appropriate and equal Skin: Warm and dry. Normal turgor. No rash. Palpitation: Normal elasticity for age Abdomen: Abdomen is soft. Bowel sounds +. There is no abdominal tenderness, no guarding/rigidity no organomegaly Psych: normal insight and normal affect/mood MSK: no joint tenderness or swelling. Digits and nails normal, no deformity : kidney or bladder not palpable Labs/imaging reviewed. Past medical history, past surgical history, family history, social history, allergy reviewed and noted as below Family hx: no hx of CKD. Rest non-contributory TTKG 7 Objective - Vital Signs/Intake and Output Vital Signs (last 24 hours): Temp Pulse Resp BP Pulse Ox 98.4 F 106 H 20 114/69 97 04/26/18 07:05 04/26/18 07:05 04/26/18 07:05 04/26/18 07:05 04/26/18 07:05 Intake and Output: 04/26/18 04/26/18 06:59 18:59 Intake Total 220 Balance 220 - Medications Medications: Current Medications Calcium Carbonate (Oscal) 500 mg PO DAILY [facility] Last Admin: 04/26/18 11:04 Dose: 500 mg Ergocalciferol (Drisdol 50,000 Intl Units Cap) 1 cap PO Q7D [facility] Last Admin: 04/26/18 11:08 Dose: 1 cap Piperacillin Sod/Tazobactam (Sod 3.375 gm/ Sodium Chloride) 100 mls @ 200 mls/hr IVPB Q8H [facility]; Protocol Last Admin: 04/26/18 11:04 Dose: 200 mls/hr Fluconazole (Diflucan Iv 200 Mg/100 Ml Ns) 100 mls @ 100 mls/hr IVPB Q24H [facility]; Protocol Last Admin: 04/26/18 10:15 Dose: 100 mls/hr Magnesium Oxide (Mag-Ox) 800 mg PO BID [facility] Last Admin: 04/26/18 11:07 Dose: 800 mg Midodrine (Proamatine) 5 mg PO TID [facility] Last Admin: 04/26/18 11:03 Dose: 5 mg Morphine Sulfate (Morphine) 2 mg IV Q2 PRN PRN Reason: pain Last Admin: 04/26/18 00:30 Dose: 2 mg Pantoprazole Sodium (Protonix Inj) 40 mg IVP Q12H [facility] Last Admin: 04/26/18 09:05 Dose: 40 mg Saliva Substitute (First Magic Mouthwash) 10 ml PO Q6 [facility] Last Admin: 04/26/18 06:18 Dose: 10 ml - Labs Labs: 04/25/18 07:27 04/26/18 07:43 PT 16.8 SECONDS (9.7-12.2) H 04/12/18 06:10 INR 1.5 04/12/18 06:10 APTT 28 SECONDS (21-34) 04/12/18 06:10
--- NOTE | 2018-04-26 15:15 | CP.PCM.PN ---
Subjective - Date & Time of Evaluation Date of Evaluation: 04/26/18 Time of Evaluation: 15:00 - Subjective Subjective: dictated Objective - Vital Signs/Intake and Output Vital Signs (last 24 hours): Temp Pulse Resp BP Pulse Ox 98.4 F 106 H 20 114/69 97 04/26/18 07:05 04/26/18 07:05 04/26/18 07:05 04/26/18 07:05 04/26/18 07:05 Intake and Output: 04/26/18 04/26/18 06:59 18:59 Intake Total 220 Balance 220 - Medications Medications: Current Medications Calcium Carbonate (Oscal) 500 mg PO DAILY [facility] Last Admin: 04/26/18 11:04 Dose: 500 mg Ergocalciferol (Drisdol 50,000 Intl Units Cap) 1 cap PO Q7D [facility] Last Admin: 04/26/18 11:08 Dose: 1 cap Piperacillin Sod/Tazobactam (Sod 3.375 gm/ Sodium Chloride) 100 mls @ 200 mls/hr IVPB Q8H [facility]; Protocol Last Admin: 04/26/18 11:04 Dose: 200 mls/hr Fluconazole (Diflucan Iv 200 Mg/100 Ml Ns) 100 mls @ 100 mls/hr IVPB Q24H [facility]; Protocol Last Admin: 04/26/18 10:15 Dose: 100 mls/hr Magnesium Oxide (Mag-Ox) 800 mg PO BID [facility] Last Admin: 04/26/18 11:07 Dose: 800 mg Midodrine (Proamatine) 5 mg PO TID [facility] Last Admin: 04/26/18 14:20 Dose: 5 mg Morphine Sulfate (Morphine) 2 mg IV Q2 PRN PRN Reason: pain Last Admin: 04/26/18 14:10 Dose: 2 mg Pantoprazole Sodium (Protonix Inj) 40 mg IVP Q12H [facility] Last Admin: 04/26/18 09:05 Dose: 40 mg Saliva Substitute (First Magic Mouthwash) 10 ml PO Q6 [facility] Last Admin: 04/26/18 11:34 Dose: 10 ml - Labs Labs: 04/25/18 07:27 04/26/18 07:43 PT 16.8 SECONDS (9.7-12.2) H 04/12/18 06:10 INR 1.5 04/12/18 06:10 APTT 28 SECONDS (21-34) 04/12/18 06:10
--- NOTE | 2018-04-26 16:34 | CP.PCM.PN ---
Subjective - Date & Time of Evaluation Date of Evaluation: 04/26/18 Time of Evaluation: 09:20 - Subjective Subjective: Medicine progress note ( Dr. Lilli Mitchell's service) Patient was seen and examined at bedside as she was resting comfortably in bed. Patient denies any discomfort at the moment. Objective - Vital Signs/Intake and Output Vital Signs (last 24 hours): Temp Pulse Resp BP Pulse Ox 98.0 F 104 H 20 96/58 L 100 04/26/18 16:00 04/26/18 16:00 04/26/18 16:00 04/26/18 16:00 04/26/18 16:00 Intake and Output: 04/26/18 04/26/18 06:59 18:59 Intake Total 220 Balance 220 - Medications Medications: Current Medications Calcium Carbonate (Oscal) 500 mg PO DAILY [facility] Last Admin: 04/26/18 11:04 Dose: 500 mg Ergocalciferol (Drisdol 50,000 Intl Units Cap) 1 cap PO Q7D [facility] Last Admin: 04/26/18 11:08 Dose: 1 cap Piperacillin Sod/Tazobactam (Sod 3.375 gm/ Sodium Chloride) 100 mls @ 200 mls/hr IVPB Q8H [facility]; Protocol Last Admin: 04/26/18 11:04 Dose: 200 mls/hr Fluconazole (Diflucan Iv 200 Mg/100 Ml Ns) 100 mls @ 100 mls/hr IVPB Q24H [facility]; Protocol Last Admin: 04/26/18 10:15 Dose: 100 mls/hr Magnesium Oxide (Mag-Ox) 800 mg PO BID [facility] Last Admin: 04/26/18 11:07 Dose: 800 mg Midodrine (Proamatine) 5 mg PO TID [facility] Last Admin: 04/26/18 14:20 Dose: 5 mg Morphine Sulfate (Morphine) 2 mg IV Q2 PRN PRN Reason: pain Last Admin: 04/26/18 14:10 Dose: 2 mg Pantoprazole Sodium (Protonix Inj) 40 mg IVP Q12H [facility] Last Admin: 04/26/18 09:05 Dose: 40 mg Saliva Substitute (First Magic Mouthwash) 10 ml PO Q6 [facility] Last Admin: 04/26/18 11:34 Dose: 10 ml - Labs Labs: 04/25/18 07:27 04/26/18 07:43 PT 16.8 SECONDS (9.7-12.2) H 04/12/18 06:10 INR 1.5 04/12/18 06:10 APTT 28 SECONDS (21-34) 04/12/18 06:10 - Constitutional Appears: No Acute Distress - Eye Exam Eye Exam: EOMI - ENT Exam ENT Exam: Mucous Membranes Dry - Respiratory Exam Respiratory Exam: NORMAL BREATHING PATTERN - Cardiovascular Exam Cardiovascular Exam: REGULAR RHYTHM, +S1, +S2 - GI/Abdominal Exam GI & Abdominal Exam: Soft, Normal Bowel Sounds. absent: Distended, Firm, Guarding, Rigid, Tenderness - Extremities Exam Extremities Exam: Tenderness - Neurological Exam Neurological Exam: Alert, Awake, Oriented x3 - Psychiatric Exam Psychiatric exam: Normal Affect - Skin Skin Exam: Normal Color Assessment and Plan (1) Colitis Assessment & Plan: Patient is a 58 year old with past medical history of breast cancer, with metastasis Bronchial asthma, history of fractures, hypertension, who presented with abdominal pain admitted for possible colitis: ID consultation: Dr. Saez * Management as per recommendation Abdomen/Pelvis CT: Diffuse colonic wall thickening raises concern for roldan colitis (i.e. Infectious/inflammatory). Large amount of fluid is noted within the rectosigmoid colon; consistent with diarrheal illness. - Stool Culture: Negative - Treated with Cefepmine, Vanco and flagyl - Zosyn 3.375gm IV Q8H UTI: UC: Yeast species - Fluconazole 200mg IV Q24H Renal Wasting, possibly due to chemotherapy Nephrology, Dr. Zelaya - Renal function is currently stable - Oscal 500mg PO daily - Dridsol 50,000units 1 cap Q7D - Magnesium oxide 800mg PO BID Breast Cancer Stage IV with mets - Poor prognosis - Morphine 2mg IV Q2 PRN Bilateral LE Tenderness - F/u venous doppler All plans and management discussed with Dr. Lilli Mitchell Status: Acute
--- NOTE | 2018-04-26 18:43 | CP.PCM.PN ---
Subjective - Date & Time of Evaluation Date of Evaluation: 04/26/18 Time of Evaluation: 08:30 - Subjective Subjective: clinically same Objective - Vital Signs/Intake and Output Vital Signs (last 24 hours): Temp Pulse Resp BP Pulse Ox 98.0 F 104 H 20 96/58 L 100 04/26/18 16:00 04/26/18 16:00 04/26/18 16:00 04/26/18 16:00 04/26/18 16:00 Intake and Output: 04/26/18 04/26/18 06:59 18:59 Intake Total 220 Balance 220 - Medications Medications: Current Medications Calcium Carbonate (Oscal) 500 mg PO DAILY [facility] Last Admin: 04/26/18 11:04 Dose: 500 mg Ergocalciferol (Drisdol 50,000 Intl Units Cap) 1 cap PO Q7D [facility] Last Admin: 04/26/18 11:08 Dose: 1 cap Piperacillin Sod/Tazobactam (Sod 3.375 gm/ Sodium Chloride) 100 mls @ 200 mls/hr IVPB Q8H [facility]; Protocol Last Admin: 04/26/18 11:04 Dose: 200 mls/hr Fluconazole (Diflucan Iv 200 Mg/100 Ml Ns) 100 mls @ 100 mls/hr IVPB Q24H [facility]; Protocol Last Admin: 04/26/18 10:15 Dose: 100 mls/hr Magnesium Oxide (Mag-Ox) 800 mg PO BID [facility] Last Admin: 04/26/18 11:07 Dose: 800 mg Midodrine (Proamatine) 5 mg PO TID [facility] Last Admin: 04/26/18 14:20 Dose: 5 mg Morphine Sulfate (Morphine) 2 mg IV Q2 PRN PRN Reason: pain Last Admin: 04/26/18 14:10 Dose: 2 mg Pantoprazole Sodium (Protonix Inj) 40 mg IVP Q12H [facility] Last Admin: 04/26/18 09:05 Dose: 40 mg Saliva Substitute (First Magic Mouthwash) 10 ml PO Q6 [facility] Last Admin: 04/26/18 11:34 Dose: 10 ml - Labs Labs: 04/25/18 07:27 04/26/18 07:43 PT 16.8 SECONDS (9.7-12.2) H 04/12/18 06:10 INR 1.5 04/12/18 06:10 APTT 28 SECONDS (21-34) 04/12/18 06:10 - Constitutional Appears: Well - Head Exam Head Exam: ATRAUMATIC, NORMAL INSPECTION, NORMOCEPHALIC - Eye Exam Eye Exam: EOMI, Normal appearance, PERRL Pupil Exam: NORMAL ACCOMODATION, PERRL - ENT Exam ENT Exam: Mucous Membranes Moist, Normal Exam - Neck Exam Neck Exam: Full ROM, Normal Inspection. absent: Lymphadenopathy - Respiratory Exam Respiratory Exam: Decreased Breath Sounds - Cardiovascular Exam Cardiovascular Exam: REGULAR RHYTHM, +S1, +S2 - GI/Abdominal Exam GI & Abdominal Exam: Soft, Diminished Bowel Sounds - Rectal Exam Rectal Exam: Deferred
--- NOTE | 2018-04-26 23:40 | CP.PCM.PN ---
Subjective - Date & Time of Evaluation Date of Evaluation: 04/26/18 Time of Evaluation: 16:00 - Subjective Subjective: Trying to eat more. Objective - Vital Signs/Intake and Output Vital Signs (last 24 hours): Temp Pulse Resp BP Pulse Ox 98.5 F 106 H 20 108/71 100 04/26/18 22:46 04/26/18 22:46 04/26/18 22:46 04/26/18 22:46 04/26/18 22:46 Intake and Output: 04/26/18 04/27/18 18:59 06:59 Intake Total 340 Output Total 300 Balance 40 - Medications Medications: Current Medications Calcium Carbonate (Oscal) 500 mg PO DAILY [facility] Last Admin: 04/26/18 11:04 Dose: 500 mg Ergocalciferol (Drisdol 50,000 Intl Units Cap) 1 cap PO Q7D [facility] Last Admin: 04/26/18 11:08 Dose: 1 cap Piperacillin Sod/Tazobactam (Sod 3.375 gm/ Sodium Chloride) 100 mls @ 200 mls/hr IVPB Q8H [facility]; Protocol Last Admin: 04/26/18 20:20 Dose: 200 mls/hr Fluconazole (Diflucan Iv 200 Mg/100 Ml Ns) 100 mls @ 100 mls/hr IVPB Q24H [facility]; Protocol Last Admin: 04/26/18 10:15 Dose: 100 mls/hr Magnesium Oxide (Mag-Ox) 800 mg PO BID [facility] Last Admin: 04/26/18 18:55 Dose: 800 mg Midodrine (Proamatine) 5 mg PO TID [facility] Last Admin: 04/26/18 18:55 Dose: 5 mg Morphine Sulfate (Morphine) 2 mg IV Q2 PRN PRN Reason: pain Last Admin: 04/26/18 22:43 Dose: 2 mg Pantoprazole Sodium (Protonix Inj) 40 mg IVP Q12H [facility] Last Admin: 04/26/18 21:30 Dose: 40 mg Saliva Substitute (First Magic Mouthwash) 10 ml PO Q6 [facility] Last Admin: 04/26/18 18:56 Dose: 10 ml - Labs Labs: 04/25/18 07:27 04/26/18 07:43 PT 16.8 SECONDS (9.7-12.2) H 04/12/18 06:10 INR 1.5 04/12/18 06:10 APTT 28 SECONDS (21-34) 04/12/18 06:10 - Head Exam Head Exam: ATRAUMATIC - Eye Exam Eye Exam: Normal appearance - ENT Exam ENT Exam: Mucous Membranes Dry - Respiratory Exam Respiratory Exam: NORMAL BREATHING PATTERN - Cardiovascular Exam Cardiovascular Exam: +S1, +S2 - GI/Abdominal Exam GI & Abdominal Exam: Normal Bowel Sounds Assessment and Plan (1) Anemia Assessment & Plan: chronic disease and recent chemotherapy transfusion support PRN Status: Acute (2) Breast cancer Assessment & Plan: stage IV outpatient chemotherapy Status: Acute
[2018-04-27] MEDS: Piperacillin/Tazobact 3.375 GM in Sodium Chloride 100 ML IVPB SCH ×2 (04:00→13:13)
[2018-04-27] MEDS: Mag&Al/Simet/Diphen/Lido 237 ML KIT PO SCH ×3 (06:00→17:44)
--- NOTE | 2018-04-27 06:16 | PN ---
DATE: 04/26/2018 SUBJECTIVE: The patient is feeling better. She is trying to eat better. She denies any abdominal pain. She is looking better. PHYSICAL EXAMINATION: VITAL SIGNS: T-max is 98, heart rate of 104, blood pressure 96/58, respirations are 20. HEENT: Head is atraumatic, normocephalic. Has a left Port-A-Cath. LUNGS: Clear. HEART: S1, S2. Still tachy. ABDOMEN: Soft, nontender. EXTREMITIES: Decreased in edema. LABORATORY DATA: Her white count is 5.1, hemoglobin 9, hematocrit 27.3, platelet count is 260. Her BUN is 5, creatinine 0.4, uric acid is 1.9, calcium 8.3. The patient's repeat urine culture is negative. MRSA is negative. Blood cultures x2 are negative from 04/15/2018. ASSESSMENT AND PLAN: She was admitted with positive blood cultures and she was pancytopenic post chemo and radiation. She has been on antibiotics. She has right thigh wounds which have Staphylococcus aureus at this time and it was oxacillin sensitive. So, we will discontinue the antibiotics soon and continue local wound care. She probably can go back to the rehab wherever her disposition is. Jacqueline Saez MD
[2018-04-27 07:30] LABS: BASO % 0.8 % (0.0-2.0); EOS % 0.2 % (0.0-4.0); HEMOGLOBIN 7.9 g/dL (11.0-16.0); LYMPH # 0.4 K/uL (1.0-4.3); LYMPH % 8.1 % (20.0-40.0); MEAN CORPUSCULAR HEMOGLOBIN 28.1 pg (27.0-31.0); MEAN CORPUSCULAR HGB CONC 32.7 g/dL (33.0-37.0); MEAN PLATELET VOLUME 7.1 fL (7.2-11.7); MONO # 1.2 K/uL (0.0-0.8); MONO % 25.7 % (0.0-10.0); NEUT # 3.1 K/uL (1.8-7.0); NEUT % 65.2 % (50.0-75.0); NRBC % 0.2 % (0.0-2.0); PLATELET COUNT 330 K/uL (130-400); RBC 2.81 Mil/uL (3.80-5.20); RED CELL DISTRIBUTION WIDTH 19.1 % (11.5-14.5); WHITE BLOOD COUNT 4.8 K/uL (4.8-10.8)
[2018-04-27 07:53] LABS: ALB/GLOB RATIO 0.9 (1.0-2.1); ALBUMIN 2.6 g/dL (3.5-5.0); ALT/SGPT 18 U/L (9-52); AST/SGOT 17 U/L (14-36); BLOOD UREA NITROGEN 8 mg/dL (7-17); CALCIUM 8.2 mg/dl (8.6-10.4); GFR NON-AFRICAN AMERICAN > 60
[2018-04-27 10:19] LABS: LYMPHOCYTE 8 % (20-40); MONOCYTE 24 % (0-10); NEUTROPHIL 68 % (50-75); TOTAL CELLS COUNTED 100
[2018-04-27 10:20] LABS: ANISOCYTOSIS MODERATE; HYPOCHROMIC SLIGHT; PLATELET ESTIMATE NORMAL (NORMAL); POIKILOCYTOSIS SLIGHT
[2018-04-27 10:21] LABS: TARGET CELLS SLIGHT
[2018-04-27] MEDS: Magnesium Oxide 400 mg Tab UD PO SCH ×2 (11:25→17:45)
[2018-04-27] MEDS: Fluconazole IV 200mg/100 ml NS 100 ML IVPB SCH (11:45)
[2018-04-27] MEDS: Morphine 4 MG/ML VIAL IV PRN ×2 (13:09→22:28)
[2018-04-27] MEDS: Magnesium Sulfate 1 gm in D5W 1 GM/100 ML BAG IVPB SCH ×4 (13:10→16:24)
--- NOTE | 2018-04-27 14:18 | CP.PCM.PN ---
Subjective - Date & Time of Evaluation Date of Evaluation: 04/27/18 Time of Evaluation: 14:00 - Subjective Subjective: dictated Objective - Vital Signs/Intake and Output Vital Signs (last 24 hours): Temp Pulse Resp BP Pulse Ox 97.6 F 91 H 20 105/68 99 04/27/18 07:12 04/27/18 07:12 04/27/18 07:12 04/27/18 07:12 04/27/18 07:12 Intake and Output: 04/27/18 04/27/18 06:59 18:59 Intake Total 560 Output Total 600 Balance -40 - Medications Medications: Current Medications Apixaban (Eliquis) 5 mg PO BID [facility] Calcium Carbonate (Oscal) 500 mg PO DAILY [facility] Last Admin: 04/27/18 11:25 Dose: 500 mg Ergocalciferol (Drisdol 50,000 Intl Units Cap) 1 cap PO Q7D [facility] Last Admin: 04/26/18 11:08 Dose: 1 cap Piperacillin Sod/Tazobactam (Sod 3.375 gm/ Sodium Chloride) 100 mls @ 200 mls/hr IVPB Q8H [facility]; Protocol Last Admin: 04/27/18 13:13 Dose: 200 mls/hr Magnesium Sulfate/Dextrose (Magnesium Sulfate 1 Gm/100 Ml D5w) 1 gm in 100 mls @ 300 mls/hr IVPB Q30M [facility] Stop: 04/27/18 14:49 Last Admin: 04/27/18 13:58 Dose: 300 mls/hr Magnesium Oxide (Mag-Ox) 800 mg PO BID [facility] Last Admin: 04/27/18 11:25 Dose: 800 mg Midodrine (Proamatine) 5 mg PO TID [facility] Last Admin: 04/27/18 13:58 Dose: 5 mg Morphine Sulfate (Morphine) 2 mg IV Q2 PRN PRN Reason: pain Last Admin: 04/27/18 13:09 Dose: 2 mg Pantoprazole Sodium (Protonix Inj) 40 mg IVP Q12H [facility] Last Admin: 04/27/18 11:25 Dose: 40 mg Saliva Substitute (First Magic Mouthwash) 10 ml PO Q6 [facility] Last Admin: 04/27/18 13:58 Dose: 10 ml - Labs Labs: 04/27/18 07:23 04/27/18 07:23 PT 16.8 SECONDS (9.7-12.2) H 04/12/18 06:10 INR 1.5 04/12/18 06:10 APTT 28 SECONDS (21-34) 04/12/18 06:10
[2018-04-27] MEDS ORDERED: Ergocalciferol 50,000 Intl Units Cap PO SCH (15:30)
[2018-04-27] MEDS ORDERED: Magnesium Sulfate 1 gm in D5W 1 GM/100 ML BAG IVPB SCH (15:30)
--- NOTE | 2018-04-27 16:59 | CP.PCM.PN ---
Subjective - Date & Time of Evaluation Date of Evaluation: 04/27/18 Time of Evaluation: 16:58 - Subjective Subjective: Nephrology Consultation Note: Assessment: Stable Hypomagnesemia Hypokalemia likley due to [place] based chemotherapy induced renal wasting as evident by high TTKG and high FeMag Hyponatremia likely SIADH Hypoalbuminemia Obesity, Colitis, GI bleed pancytopenia metastatic breast CA vit d def DVT Plan renal function stable and WNL Hypertension control with meds as ordered. Maintain hemodynamics stable. Avoid hypotension. Monitor Input/Output, daily weights and renal function with basic metabolic panel supplement lytes as needed consider appetite stimulants anemia management as per heme/onc added weekly vit d Dose meds/antibiotics for normal GFR. Glycemic control. pt was encouraged to eat protein food Further work up/management as per primary team Thanks for allowing me to participate in care of your patient. Will follow patient with you. Please call if any Qs. had d/w team Dr Ton Zelaya Office: [phone] Chief Complaint; low appetite Reason for consult: electrolytes abnormalities HPI: Pt is a 58 F with hx of hypertension obesity metastatic breast CA involving brain, sp radiation, presently on chemo with carboplatin and gemcitabine presented with complaints of paina abdomen and diarrhoea, admitted with ? GI bleed, colitis and pancytopenia. renal consult for electrolytes abnormalities such as low Na, Ca, Mg, K Denies OTC/herbal meds or NSAIDs c/o decreased appetite, loss of taste. no SOB. no further diarrhoea. oral intake poor ROS: c/o leg swelling Cardiovascular: No chest pain. Pulmonary: no shortness of breath Gastrointestinal: denies abdominal pain No nausea. No vomiting. Genitourinary: No pain while urinating. Denies blood in urine. All other negative except as mentioned in HPI Physical Examination: General Appearance: Comfortable, in no acute respiratory distress, co-operative . obese Vitals reviewed and noted as below Head; Atraumatic, normocephalic. skin hyperpigmented ENT: no ulcers no thrush. Tongue is midline. Oropharynx: no rash or ulcers. EYES: Pupils are equal, round and reactive to light accommodation. Eye muscles and extraocular movement intact. Sclera is anicteric. Neck; supple no lymphadenopathy, no thyromegaly or bruit Lungs: Normal respiratory rate/effort. Breath sounds bilateral equal and clear Heart: Normal rate. s1s2 normal. No rub or gallop. Extremities: 1+ edema. No varicose veins. RUE lymphedema + Neurological: Patient is alert, awake and oriented to person, place and time. No focal deficit. Strength bilateral appropriate and equal Skin: Warm and dry. Normal turgor. No rash. Palpitation: Normal elasticity for age Abdomen: Abdomen is soft. Bowel sounds +. There is no abdominal tenderness, no guarding/rigidity no organomegaly Psych: normal insight and normal affect/mood MSK: no joint tenderness or swelling. Digits and nails normal, no deformity : kidney or bladder not palpable Labs/imaging reviewed. Past medical history, past surgical history, family history, social history, allergy reviewed and noted as below Family hx: no hx of CKD. Rest non-contributory TTKG 7 FeMag 35% Objective - Vital Signs/Intake and Output Vital Signs (last 24 hours): Temp Pulse Resp BP Pulse Ox 97.6 F 91 H 20 105/68 99 04/27/18 07:12 04/27/18 07:12 04/27/18 07:12 04/27/18 07:12 04/27/18 07:12 Intake and Output: 04/27/18 04/27/18 06:59 18:59 Intake Total 560 Output Total 600 Balance -40 - Medications Medications: Current Medications Apixaban (Eliquis) 5 mg PO BID [facility] Calcium Carbonate (Oscal) 500 mg PO DAILY [facility] Last Admin: 04/27/18 11:25 Dose: 500 mg Ergocalciferol (Drisdol 50,000 Intl Units Cap) 1 cap PO Q7D [facility] Last Admin: 04/26/18 11:08 Dose: 1 cap Magnesium Oxide (Mag-Ox) 800 mg PO BID [facility] Last Admin: 04/27/18 11:25 Dose: 800 mg Midodrine (Proamatine) 5 mg PO TID [facility] Last Admin: 04/27/18 13:58 Dose: 5 mg Morphine Sulfate (Morphine) 2 mg IV Q2 PRN PRN Reason: pain Last Admin: 04/27/18 13:09 Dose: 2 mg Pantoprazole Sodium (Protonix Inj) 40 mg IVP Q12H [facility] Last Admin: 04/27/18 11:25 Dose: 40 mg Saliva Substitute (First Magic Mouthwash) 10 ml PO Q6 [facility] Last Admin: 04/27/18 13:58 Dose: 10 ml - Labs Labs: 04/27/18 07:23 04/27/18 07:23 PT 16.8 SECONDS (9.7-12.2) H 04/12/18 06:10 INR 1.5 04/12/18 06:10 APTT 28 SECONDS (21-34) 04/12/18 06:10
--- NOTE | 2018-04-27 19:46 | PN ---
DATE: 04/27/2018 INFECTIOUS DISEASE FOLLOWUP SUBJECTIVE: I came to see the patient. She went through Dopplers of her lower extremities which are both positive for DVT at this time. She does have IVC filter, however. PHYSICAL EXAMINATION: VITAL SIGNS: T-max is 97.6, pulse 91, blood pressure 105/68, respirations are 20. HEENT: Head is atraumatic, normocephalic. NECK: Supple. She has a Port-A-Cath in the left side. LUNGS: Clear. HEART: S1 and S2 regular. ABDOMEN: Soft, nontender. EXTREMITIES: Remain with edema and positive DVTs at this time. LABORATORY DATA: White count is 4.8, hemoglobin 7.9, hematocrit 24.2, platelet count is 330, BUN is 8, creatinine 0.4. ASSESSMENT AND PLAN: The patient did come with gastrointestinal bleeding and had Bacteroides caccae in the blood and also had pancytopenia, has right thigh wounds and urinary tract infection with yeast, now has improved markedly except that she has bilateral deep venous thrombosis now. So at this time, I will discontinue the antibiotics and follow recommendations of Dr. Gibson, and she will be off antibiotics and monitor for any fever or any other issues with infection. She needs local wound care for the decubiti as that has position change and it would need treatment. Jacqueline Saez MD
--- NOTE | 2018-04-27 20:18 | CP.PCM.PN ---
Subjective - Date & Time of Evaluation Date of Evaluation: 04/27/18 Time of Evaluation: 09:15 - Subjective Subjective: clinically same Objective - Vital Signs/Intake and Output Vital Signs (last 24 hours): Temp Pulse Resp BP Pulse Ox 97.9 F 88 20 107/68 97 04/27/18 15:00 04/27/18 15:00 04/27/18 15:00 04/27/18 15:00 04/27/18 15:00 - Medications Medications: Current Medications Apixaban (Eliquis) 5 mg PO BID [facility] Last Admin: 04/27/18 17:45 Dose: 5 mg Calcium Carbonate (Oscal) 500 mg PO DAILY [facility] Last Admin: 04/27/18 11:25 Dose: 500 mg Ergocalciferol (Drisdol 50,000 Intl Units Cap) 1 cap PO Q7D [facility] Last Admin: 04/26/18 11:08 Dose: 1 cap Magnesium Oxide (Mag-Ox) 800 mg PO BID [facility] Last Admin: 04/27/18 17:45 Dose: 800 mg Midodrine (Proamatine) 5 mg PO TID [facility] Last Admin: 04/27/18 17:48 Dose: 5 mg Morphine Sulfate (Morphine) 2 mg IV Q2 PRN PRN Reason: pain Last Admin: 04/27/18 13:09 Dose: 2 mg Pantoprazole Sodium (Protonix Inj) 40 mg IVP Q12H [facility] Last Admin: 04/27/18 11:25 Dose: 40 mg Saliva Substitute (First Magic Mouthwash) 10 ml PO Q6 [facility] Last Admin: 04/27/18 17:44 Dose: 10 ml - Labs Labs: 04/27/18 07:23 04/27/18 07:23 PT 16.8 SECONDS (9.7-12.2) H 04/12/18 06:10 INR 1.5 04/12/18 06:10 APTT 28 SECONDS (21-34) 04/12/18 06:10 - Constitutional Appears: Well - Head Exam Head Exam: ATRAUMATIC, NORMAL INSPECTION, NORMOCEPHALIC - Eye Exam Eye Exam: EOMI, Normal appearance, PERRL Pupil Exam: NORMAL ACCOMODATION, PERRL - ENT Exam ENT Exam: Mucous Membranes Moist, Normal Exam - Neck Exam Neck Exam: Full ROM, Normal Inspection. absent: Lymphadenopathy - Respiratory Exam Respiratory Exam: Decreased Breath Sounds - Cardiovascular Exam Cardiovascular Exam: REGULAR RHYTHM, +S1, +S2 - GI/Abdominal Exam GI & Abdominal Exam: Soft, Diminished Bowel Sounds - Rectal Exam Rectal Exam: Deferred
[2018-04-28] MEDS: Mag&Al/Simet/Diphen/Lido 237 ML KIT PO SCH ×4 (00:36→17:34)
[2018-04-28 07:30] LABS: BASO % 0.8 % (0.0-2.0); EOS % 0.3 % (0.0-4.0); HEMOGLOBIN 7.9 g/dL (11.0-16.0); LYMPH # 0.4 K/uL (1.0-4.3); LYMPH % 9.5 % (20.0-40.0); MEAN CELL VOLUME 86.3 fL (81.0-99.0); MEAN CORPUSCULAR HGB CONC 31.2 g/dL (33.0-37.0); MEAN PLATELET VOLUME 7.1 fL (7.2-11.7); MONO # 0.9 K/uL (0.0-0.8); MONO % 21.5 % (0.0-10.0); NEUT # 2.8 K/uL (1.8-7.0); NEUT % 67.9 % (50.0-75.0); NRBC % 0.1 % (0.0-2.0); PLATELET COUNT 370 K/uL (130-400); RBC 2.94 Mil/uL (3.80-5.20); RED CELL DISTRIBUTION WIDTH 19.2 % (11.5-14.5); WHITE BLOOD COUNT 4.1 K/uL (4.8-10.8)
[2018-04-28 07:53] LABS: ALB/GLOB RATIO 0.9 (1.0-2.1); ALBUMIN 2.7 g/dL (3.5-5.0); ALT/SGPT 11 U/L (9-52); AST/SGOT 18 U/L (14-36); BLOOD UREA NITROGEN 6 mg/dL (7-17); CALCIUM 8.4 mg/dl (8.6-10.4); GFR NON-AFRICAN AMERICAN > 60
[2018-04-28 08:40] LABS: ANISOCYTOSIS SLIGHT; EOSINOPHIL 1 % (0-4); HYPOCHROMIC MODERATE; LYMPHOCYTE 10 % (20-40); MICROCYTOSIS SLIGHT; MONOCYTE 18 % (0-10); MYELOCYTE 1 % (0-0); NEUTROPHIL 70 % (50-75); PLATELET ESTIMATE NORMAL (NORMAL); POIKILOCYTOSIS SLIGHT; TOTAL CELLS COUNTED 100
[2018-04-28 08:41] LABS: OVALOCYTES SLIGHT; TEARDROP CELLS SLIGHT
[2018-04-28] MEDS: Magnesium Oxide 400 mg Tab UD PO SCH ×3 (10:19→17:33)
--- NOTE | 2018-04-28 12:24 | CP.PCM.PN ---
Subjective - Date & Time of Evaluation Date of Evaluation: 04/28/18 Time of Evaluation: 12:24 - Subjective Subjective: Nephrology Consultation Note: Assessment: Stable Hypomagnesemia Hypokalemia likley due to [place] based chemotherapy induced renal wasting as evident by high TTKG and high FeMag Hyponatremia likely SIADH Hypoalbuminemia Obesity, Colitis, GI bleed pancytopenia metastatic breast CA vit d def DVT Plan renal function stable and WNL Hypertension control with meds as ordered. Maintain hemodynamics stable. Avoid hypotension. Monitor Input/Output, daily weights and renal function with basic metabolic panel supplement lytes as needed consider appetite stimulants anemia management as per heme/onc added weekly vit d Dose meds/antibiotics for normal GFR. Glycemic control. pt was encouraged to eat protein food Further work up/management as per primary team Thanks for allowing me to participate in care of your patient. Will follow patient with you. Please call if any Qs. had d/w team Dr Ton Zelaya Office: [phone] Chief Complaint; low appetite Reason for consult: electrolytes abnormalities HPI: Pt is a 58 F with hx of hypertension obesity metastatic breast CA involving brain, sp radiation, presently on chemo with carboplatin and gemcitabine presented with complaints of paina abdomen and diarrhoea, admitted with ? GI bleed, colitis and pancytopenia. renal consult for electrolytes abnormalities such as low Na, Ca, Mg, K Denies OTC/herbal meds or NSAIDs c/o decreased appetite, loss of taste. no SOB. no further diarrhoea. oral intake better ROS: c/o leg swelling Cardiovascular: No chest pain. Pulmonary: no shortness of breath Gastrointestinal: denies abdominal pain No nausea. No vomiting. Genitourinary: No pain while urinating. Denies blood in urine. All other negative except as mentioned in HPI Physical Examination: General Appearance: Comfortable, in no acute respiratory distress, co-operative . obese Vitals reviewed and noted as below Head; Atraumatic, normocephalic. skin hyperpigmented ENT: no ulcers no thrush. Tongue is midline. Oropharynx: no rash or ulcers. EYES: Pupils are equal, round and reactive to light accommodation. Eye muscles and extraocular movement intact. Sclera is anicteric. Neck; supple no lymphadenopathy, no thyromegaly or bruit Lungs: Normal respiratory rate/effort. Breath sounds bilateral equal and clear Heart: Normal rate. s1s2 normal. No rub or gallop. Extremities: 1+ edema. No varicose veins. RUE lymphedema + Neurological: Patient is alert, awake and oriented to person, place and time. No focal deficit. Strength bilateral appropriate and equal Skin: Warm and dry. Normal turgor. No rash. Palpitation: Normal elasticity for age Abdomen: Abdomen is soft. Bowel sounds +. There is no abdominal tenderness, no guarding/rigidity no organomegaly Psych: normal insight and normal affect/mood MSK: no joint tenderness or swelling. Digits and nails normal, no deformity : kidney or bladder not palpable Labs/imaging reviewed. Past medical history, past surgical history, family history, social history, allergy reviewed and noted as below Family hx: no hx of CKD. Rest non-contributory TTKG 7 FeMag 35% Objective - Vital Signs/Intake and Output Vital Signs (last 24 hours): Temp Pulse Resp BP Pulse Ox 98.0 F 96 H 18 122/75 100 04/28/18 07:05 04/28/18 07:05 04/28/18 07:05 04/28/18 07:05 04/28/18 07:05 Intake and Output: 04/28/18 04/28/18 06:59 18:59 Output Total 100 Balance -100 - Medications Medications: Current Medications Apixaban (Eliquis) 5 mg PO BID [facility] Last Admin: 04/28/18 10:19 Dose: 5 mg Calcium Carbonate (Oscal) 500 mg PO DAILY [facility] Last Admin: 04/28/18 10:19 Dose: 500 mg Ergocalciferol (Drisdol 50,000 Intl Units Cap) 1 cap PO Q7D [facility] Last Admin: 04/26/18 11:08 Dose: 1 cap Magnesium Oxide (Mag-Ox) 800 mg PO TID [facility] Midodrine (Proamatine) 5 mg PO TID [facility] Last Admin: 04/28/18 10:19 Dose: 5 mg Morphine Sulfate (Morphine) 2 mg IV Q2 PRN PRN Reason: pain Last Admin: 04/27/18 22:28 Dose: 2 mg Pantoprazole Sodium (Protonix Inj) 40 mg IVP Q12H [facility] Last Admin: 04/28/18 09:00 Dose: 40 mg Potassium Chloride (Potassium Chloride Oral Soln) 20 meq PO DAILY [facility] Saliva Substitute (First Magic Mouthwash) 10 ml PO Q6 [facility] Last Admin: 04/28/18 06:43 Dose: 10 ml - Labs Labs: 04/28/18 06:30 04/28/18 06:30 PT 16.8 SECONDS (9.7-12.2) H 04/12/18 06:10 INR 1.5 04/12/18 06:10 APTT 28 SECONDS (21-34) 04/12/18 06:10
[2018-04-28] MEDS: Potassium Chloride 20 mEq/15 ml LIQ UD PO SCH (12:27)
[2018-04-28] MEDS: Morphine 4 MG/ML VIAL IV PRN ×2 (12:35→21:52)
--- NOTE | 2018-04-28 12:47 | VASCLAB ---
Date of service: 04/27/2018 PROCEDURE: Lower Extremity Venous Duplex Exam. HISTORY: Bilateral leg tenderness PRIORS: 02/23/2018, normal. TECHNIQUE: Bilateral common femoral, femoral, popliteal and posterior tibial, peroneal and great saphenous veins were evaluated. Flow was assessed with color Doppler, compressibility, assessment of phasic flow and augmentation response. Report prepared by BECCA Vázquez FINDINGS: RIGHT: 1. Common Femoral Vein: 1.1. Compressibility - Partial: Thrombus - Acute : Flow - Reduced 2. Femoral Vein: 2.1. Compressibility - Partial: Thrombus - Acute : Flow - Reduced 3. Popliteal Vein: 3.1. Unable to examine due to patient limited movement. 4. Posterior Tibial Vein: 4.1. Poorly visualized. 5. Peroneal Vein: 5.1. Poorly visualized. 6. Great Saphenous Vein: 6.1. Compressibility - Fully compressible: Thrombus - None: Flow - Phasic: Augmentation - Normal: Reflux - None. LEFT: 1. Common Femoral Vein: 1.1. Compressibility - Fully compressible: Thrombus - None: Flow - Phasic: Augmentation -Normal: Reflux - None. 2. Femoral Vein: 2.1. Compressibility - Partial: Thrombus - Acute : Flow - Reduced 3. Popliteal Vein: 3.1. Compressibility - Fully compressible: Thrombus - None : Flow - Phasic: Augmentation -Normal: Reflux - None. 4. Posterior Tibial Vein: 4.1. Poorly visualized. 5. Peroneal Vein: 5.1. Poorly visualized. 6. Great Saphenous Vein: 6.1. Compressibility - Fully compressible: Thrombus - None: Flow - Phasic: Augmentation - Normal: Reflux - None. OTHER FINDINGS: Right: The right common femoral vein was partially compressible distally. The proximal femoral vein was also partially compressible. Left: The left proximal femoral vein was partially compressible. Findings were reported to Reji Escalera at 11:14 a.m. IMPRESSION: Right: Partial subacute deep vein thrombosis of the right common femoral and proximal femoral veins. Left: Partial subacute deep vein thrombosis of the left proximal femoral vein.
--- NOTE | 2018-04-28 17:20 | CP.PCM.PN ---
Subjective - Date & Time of Evaluation Date of Evaluation: 04/28/18 Time of Evaluation: 09:30 - Subjective Subjective: clinically same Objective - Vital Signs/Intake and Output Vital Signs (last 24 hours): Temp Pulse Resp BP Pulse Ox 98.1 F 87 18 107/70 100 04/28/18 16:00 04/28/18 16:00 04/28/18 16:00 04/28/18 16:00 04/28/18 16:00 Intake and Output: 04/28/18 04/28/18 06:59 18:59 Intake Total 480 Output Total 100 Balance -100 480 - Medications Medications: Current Medications Apixaban (Eliquis) 5 mg PO BID [facility] Last Admin: 04/28/18 10:19 Dose: 5 mg Calcium Carbonate (Oscal) 500 mg PO DAILY [facility] Last Admin: 04/28/18 10:19 Dose: 500 mg Ergocalciferol (Drisdol 50,000 Intl Units Cap) 1 cap PO Q7D [facility] Last Admin: 04/26/18 11:08 Dose: 1 cap Magnesium Oxide (Mag-Ox) 800 mg PO TID [facility] Last Admin: 04/28/18 13:26 Dose: 800 mg Midodrine (Proamatine) 5 mg PO TID [facility] Last Admin: 04/28/18 13:27 Dose: 5 mg Morphine Sulfate (Morphine) 2 mg IV Q2 PRN PRN Reason: pain Last Admin: 04/28/18 12:35 Dose: 2 mg Pantoprazole Sodium (Protonix Inj) 40 mg IVP Q12H [facility] Last Admin: 04/28/18 09:00 Dose: 40 mg Potassium Chloride (Potassium Chloride Oral Soln) 20 meq PO DAILY [facility] Last Admin: 04/28/18 12:27 Dose: 20 meq Saliva Substitute (First Magic Mouthwash) 10 ml PO Q6 [facility] Last Admin: 04/28/18 12:15 Dose: 10 ml - Labs Labs: 04/28/18 06:30 04/28/18 06:30 PT 16.8 SECONDS (9.7-12.2) H 04/12/18 06:10 INR 1.5 04/12/18 06:10 APTT 28 SECONDS (21-34) 04/12/18 06:10 - Constitutional Appears: Well - Head Exam Head Exam: ATRAUMATIC, NORMAL INSPECTION, NORMOCEPHALIC - Eye Exam Eye Exam: EOMI, Normal appearance, PERRL Pupil Exam: NORMAL ACCOMODATION, PERRL - ENT Exam ENT Exam: Mucous Membranes Moist, Normal Exam - Neck Exam Neck Exam: Full ROM, Normal Inspection. absent: Lymphadenopathy - Respiratory Exam Respiratory Exam: Decreased Breath Sounds - Cardiovascular Exam Cardiovascular Exam: REGULAR RHYTHM, +S1, +S2 - GI/Abdominal Exam GI & Abdominal Exam: Soft, Diminished Bowel Sounds - Rectal Exam Rectal Exam: Deferred
--- NOTE | 2018-04-28 22:58 | CP.PCM.PN ---
Subjective - Date & Time of Evaluation Date of Evaluation: 04/28/18 Time of Evaluation: 19:00 - Subjective Subjective: Feeling better Objective - Vital Signs/Intake and Output Vital Signs (last 24 hours): Temp Pulse Resp BP Pulse Ox 98.1 F 87 18 107/70 100 04/28/18 16:00 04/28/18 16:00 04/28/18 16:00 04/28/18 16:00 04/28/18 16:00 Intake and Output: 04/28/18 04/29/18 18:59 06:59 Intake Total 480 Balance 480 - Medications Medications: Current Medications Apixaban (Eliquis) 5 mg PO BID [facility] Last Admin: 04/28/18 17:34 Dose: 5 mg Calcium Carbonate (Oscal) 500 mg PO DAILY [facility] Last Admin: 04/28/18 10:19 Dose: 500 mg Epoetin Chai (Procrit) 20,000 unit SC ONCE ONE Stop: 04/29/18 10:01 Ergocalciferol (Drisdol 50,000 Intl Units Cap) 1 cap PO Q7D [facility] Last Admin: 04/26/18 11:08 Dose: 1 cap Magnesium Oxide (Mag-Ox) 800 mg PO TID [facility] Last Admin: 04/28/18 17:33 Dose: 800 mg Midodrine (Proamatine) 5 mg PO TID [facility] Last Admin: 04/28/18 17:33 Dose: 5 mg Morphine Sulfate (Morphine) 2 mg IV Q2 PRN PRN Reason: pain Last Admin: 04/28/18 21:52 Dose: 2 mg Pantoprazole Sodium (Protonix Inj) 40 mg IVP Q12H [facility] Last Admin: 04/28/18 21:00 Dose: 40 mg Potassium Chloride (Potassium Chloride Oral Soln) 20 meq PO DAILY [facility] Last Admin: 04/28/18 12:27 Dose: 20 meq Saliva Substitute (First Magic Mouthwash) 10 ml PO Q6 [facility] Last Admin: 04/28/18 17:34 Dose: 10 ml - Labs Labs: 04/28/18 06:30 04/28/18 06:30 PT 16.8 SECONDS (9.7-12.2) H 04/12/18 06:10 INR 1.5 04/12/18 06:10 APTT 28 SECONDS (21-34) 01/08/19 06:10 - Head Exam Head Exam: ATRAUMATIC - Eye Exam Eye Exam: Normal appearance - ENT Exam ENT Exam: Mucous Membranes Dry - Respiratory Exam Respiratory Exam: NORMAL BREATHING PATTERN - Cardiovascular Exam Cardiovascular Exam: +S1, +S2 - GI/Abdominal Exam GI & Abdominal Exam: Normal Bowel Sounds Assessment and Plan (1) Anemia Assessment & Plan: chronic disease and chemotherapy transfusion support PRN will give a dose of Procrit Status: Acute (2) Breast cancer Assessment & Plan: stage IV outpatient treatment Status: Acute
--- NOTE | 2018-04-28 23:11 | CP.PCM.PN ---
Subjective - Date & Time of Evaluation Date of Evaluation: 04/28/18 Time of Evaluation: 14:45 - Subjective Subjective: dictated Objective - Vital Signs/Intake and Output Vital Signs (last 24 hours): Temp Pulse Resp BP Pulse Ox 98.1 F 87 18 107/70 100 04/28/18 16:00 04/28/18 16:00 04/28/18 16:00 04/28/18 16:00 04/28/18 16:00 Intake and Output: 04/28/18 04/29/18 18:59 06:59 Intake Total 480 Balance 480 - Medications Medications: Current Medications Apixaban (Eliquis) 5 mg PO BID [facility] Last Admin: 04/28/18 17:34 Dose: 5 mg Calcium Carbonate (Oscal) 500 mg PO DAILY [facility] Last Admin: 04/28/18 10:19 Dose: 500 mg Epoetin Chai (Procrit) 20,000 unit SC ONCE ONE Stop: 04/29/18 10:01 Ergocalciferol (Drisdol 50,000 Intl Units Cap) 1 cap PO Q7D [facility] Last Admin: 04/26/18 11:08 Dose: 1 cap Magnesium Oxide (Mag-Ox) 800 mg PO TID [facility] Last Admin: 04/28/18 17:33 Dose: 800 mg Midodrine (Proamatine) 5 mg PO TID [facility] Last Admin: 04/28/18 17:33 Dose: 5 mg Morphine Sulfate (Morphine) 2 mg IV Q2 PRN PRN Reason: pain Last Admin: 04/28/18 21:52 Dose: 2 mg Pantoprazole Sodium (Protonix Inj) 40 mg IVP Q12H [facility] Last Admin: 04/28/18 21:00 Dose: 40 mg Potassium Chloride (Potassium Chloride Oral Soln) 20 meq PO DAILY [facility] Last Admin: 04/28/18 12:27 Dose: 20 meq Saliva Substitute (First Magic Mouthwash) 10 ml PO Q6 [facility] Last Admin: 04/28/18 17:34 Dose: 10 ml - Labs Labs: 04/28/18 06:30 04/28/18 06:30 PT 16.8 SECONDS (9.7-12.2) H 04/12/18 06:10 INR 1.5 04/12/18 06:10 APTT 28 SECONDS (21-34) 04/12/18 06:10
--- NOTE | 2018-04-29 00:31 | PN ---
DATE: 04/28/2018 INFECTIOUS DISEASE FOLLOWUP SUBJECTIVE: The patient had no new complaints. She is feeling better. She was seen by other attendings. PHYSICAL EXAMINATION: VITAL SIGNS: T-max is 98.1, pulse 87, blood pressure 107/70, respirations are 18. She is improving. Her Port-A-Cath remains unremarkable. NECK: Supple. She is off antibiotics. LUNGS: Clear. HEART: S1, S2 are regular. ABDOMEN: Soft, flabby, nontender. EXTREMITIES: Have bilateral DVT. LABORATORY DATA: I am told her white count is 4.1, hemoglobin 7.9, hematocrit 25.4, platelet count is 370. BUN is 6, creatinine 0.4. MEDICATIONS: She has IVC filter however, and she is started on Eliquis 5 mg p.o. b.i.d., calcium carbonate, Epogen, ergocalciferol, and she is on Drisdol. OTHER MEDICATIONS: Magnesium, midodrine, morphine sulfate, Protonix, and potassium chloride, and on Saliva Substitute, Magic wash. ASSESSMENT AND PLAN: So, at this time, she is stable off antibiotics. She does have right thigh wounds which are pressure decubiti and is told to keep her position changing, so that she can improve on it and good nutrition and local wound care at this time. Jacqueline Saez MD
[2018-04-29] MEDS: Mag&Al/Simet/Diphen/Lido 237 ML KIT PO SCH ×4 (05:42→19:00)
[2018-04-29] MEDS: Morphine 4 MG/ML VIAL IV PRN ×2 (09:37→21:38)
[2018-04-29] MEDS: Magnesium Oxide 400 mg Tab UD PO SCH ×3 (09:42→19:00)
[2018-04-29] MEDS: Potassium Chloride 20 mEq/15 ml LIQ UD PO SCH (09:42)
[2018-04-29] MEDS ORDERED: Epoetin Alfa 20000 UNIT/ML Inj SC ONE (10:00)
--- NOTE | 2018-04-29 14:24 | CP.PCM.PN ---
Subjective - Date & Time of Evaluation Date of Evaluation: 04/29/18 Time of Evaluation: 14:24 - Subjective Subjective: Nephrology Consultation Note: Assessment: Stable Hypomagnesemia Hypokalemia likley due to [place] based chemotherapy induced renal wasting as evident by high TTKG and high FeMag Hyponatremia likely SIADH Hypoalbuminemia Obesity, Colitis, GI bleed pancytopenia metastatic breast CA vit d def DVT Plan renal function stable and WNL Hypertension control with meds as ordered. Maintain hemodynamics stable. Avoid hypotension. Monitor Input/Output, daily weights and renal function with basic metabolic panel supplement lytes as needed consider appetite stimulants anemia management as per heme/onc added weekly vit d Dose meds/antibiotics for normal GFR. Glycemic control. pt was encouraged to eat protein food Further work up/management as per primary team Thanks for allowing me to participate in care of your patient. Will follow patient with you. Please call if any Qs. had d/w team Dr Ton Zelaya Office: [phone] Chief Complaint; low appetite Reason for consult: electrolytes abnormalities HPI: Pt is a 58 F with hx of hypertension obesity metastatic breast CA involving brain, sp radiation, presently on chemo with carboplatin and gemcitabine presented with complaints of paina abdomen and diarrhoea, admitted with ? GI bleed, colitis and pancytopenia. renal consult for electrolytes abnormalities such as low Na, Ca, Mg, K Denies OTC/herbal meds or NSAIDs c/o decreased appetite, loss of taste. no SOB. no further diarrhoea. oral intake better ROS: c/o leg swelling Cardiovascular: No chest pain. Pulmonary: no shortness of breath Gastrointestinal: denies abdominal pain No nausea. No vomiting. Genitourinary: No pain while urinating. Denies blood in urine. All other negative except as mentioned in HPI Physical Examination: General Appearance: Comfortable, in no acute respiratory distress, co-operative . obese Vitals reviewed and noted as below Head; Atraumatic, normocephalic. skin hyperpigmented ENT: no ulcers no thrush. Tongue is midline. Oropharynx: no rash or ulcers. EYES: Pupils are equal, round and reactive to light accommodation. Eye muscles and extraocular movement intact. Sclera is anicteric. Neck; supple no lymphadenopathy, no thyromegaly or bruit Lungs: Normal respiratory rate/effort. Breath sounds bilateral equal and clear Heart: Normal rate. s1s2 normal. No rub or gallop. Extremities: 1+ edema. No varicose veins. RUE lymphedema + Neurological: Patient is alert, awake and oriented to person, place and time. No focal deficit. Strength bilateral appropriate and equal Skin: Warm and dry. Normal turgor. No rash. Palpitation: Normal elasticity for age Abdomen: Abdomen is soft. Bowel sounds +. There is no abdominal tenderness, no guarding/rigidity no organomegaly Psych: normal insight and normal affect/mood MSK: no joint tenderness or swelling. Digits and nails normal, no deformity : kidney or bladder not palpable Labs/imaging reviewed. Past medical history, past surgical history, family history, social history, allergy reviewed and noted as below Family hx: no hx of CKD. Rest non-contributory TTKG 7 FeMag 35% Objective - Vital Signs/Intake and Output Vital Signs (last 24 hours): Temp Pulse Resp BP Pulse Ox 98.1 F 96 H 20 107/63 98 04/29/18 07:00 04/29/18 07:00 04/29/18 07:00 04/29/18 07:00 04/29/18 07:00 - Medications Medications: Current Medications Apixaban (Eliquis) 5 mg PO BID [facility] Last Admin: 04/29/18 09:41 Dose: 5 mg Calcium Carbonate (Oscal) 500 mg PO DAILY [facility] Last Admin: 04/29/18 09:41 Dose: 500 mg Ergocalciferol (Drisdol 50,000 Intl Units Cap) 1 cap PO Q7D [facility] Last Admin: 04/26/18 11:08 Dose: 1 cap Magnesium Oxide (Mag-Ox) 800 mg PO TID [facility] Last Admin: 04/29/18 09:42 Dose: 800 mg Midodrine (Proamatine) 5 mg PO TID [facility] Last Admin: 04/29/18 09:43 Dose: 5 mg Morphine Sulfate (Morphine) 2 mg IV Q2 PRN PRN Reason: pain Last Admin: 04/29/18 09:37 Dose: 2 mg Pantoprazole Sodium (Protonix Inj) 40 mg IVP Q12H [facility] Last Admin: 04/29/18 08:00 Dose: 40 mg Potassium Chloride (Potassium Chloride Oral Soln) 20 meq PO DAILY [facility] Last Admin: 04/29/18 09:42 Dose: 20 meq Saliva Substitute (First Magic Mouthwash) 10 ml PO Q6 [facility] Last Admin: 04/29/18 05:42 Dose: 10 ml - Labs Labs: 04/28/18 06:30 04/28/18 06:30 PT 16.8 SECONDS (9.7-12.2) H 04/12/18 06:10 INR 1.5 04/12/18 06:10 APTT 28 SECONDS (21-34) 04/12/18 06:10
--- NOTE | 2018-04-29 15:08 | CP.PCM.PN ---
Subjective - Date & Time of Evaluation Date of Evaluation: 04/29/18 Time of Evaluation: 14:15 - Subjective Subjective: dictated Objective - Vital Signs/Intake and Output Vital Signs (last 24 hours): Temp Pulse Resp BP Pulse Ox 98.1 F 96 H 20 107/63 98 04/29/18 07:00 04/29/18 07:00 04/29/18 07:00 04/29/18 07:00 04/29/18 07:00 Intake and Output: 04/29/18 04/29/18 06:59 18:59 Intake Total 460 Balance 460 - Medications Medications: Current Medications Apixaban (Eliquis) 5 mg PO BID [facility] Last Admin: 04/29/18 09:41 Dose: 5 mg Calcium Carbonate (Oscal) 500 mg PO DAILY [facility] Last Admin: 04/29/18 09:41 Dose: 500 mg Ergocalciferol (Drisdol 50,000 Intl Units Cap) 1 cap PO Q7D [facility] Last Admin: 04/26/18 11:08 Dose: 1 cap Magnesium Oxide (Mag-Ox) 800 mg PO TID [facility] Last Admin: 04/29/18 14:28 Dose: 800 mg Midodrine (Proamatine) 5 mg PO TID [facility] Last Admin: 04/29/18 14:27 Dose: 5 mg Morphine Sulfate (Morphine) 2 mg IV Q2 PRN PRN Reason: pain Last Admin: 04/29/18 09:37 Dose: 2 mg Pantoprazole Sodium (Protonix Inj) 40 mg IVP Q12H [facility] Last Admin: 04/29/18 08:00 Dose: 40 mg Potassium Chloride (Potassium Chloride Oral Soln) 20 meq PO DAILY [facility] Last Admin: 04/29/18 09:42 Dose: 20 meq Saliva Substitute (First Magic Mouthwash) 10 ml PO Q6 [facility] Last Admin: 04/29/18 13:00 Dose: 10 ml - Labs Labs: 04/28/18 06:30 04/28/18 06:30 PT 16.8 SECONDS (9.7-12.2) H 04/12/18 06:10 INR 1.5 04/12/18 06:10 APTT 28 SECONDS (21-34) 04/12/18 06:10
--- NOTE | 2018-04-29 20:11 | CP.PCM.PN ---
Subjective - Date & Time of Evaluation Date of Evaluation: 04/29/18 Time of Evaluation: 09:30 - Subjective Subjective: clinically same Objective - Vital Signs/Intake and Output Vital Signs (last 24 hours): Temp Pulse Resp BP Pulse Ox 98.4 F 102 H 20 104/72 100 04/29/18 15:15 04/29/18 15:15 04/29/18 15:15 04/29/18 15:15 04/29/18 15:15 Intake and Output: 04/29/18 04/30/18 18:59 06:59 Intake Total 460 Balance 460 - Medications Medications: Current Medications Apixaban (Eliquis) [address] [facility] Last Admin: 04/29/18 19:00 Dose: 5 mg Calcium Carbonate (Oscal) [address] [facility] Last Admin: 04/29/18 09:41 Dose: 500 mg Ergocalciferol (Drisdol 50,000 Intl Units Cap) [address] [facility] Last Admin: 04/26/18 11:08 Dose: 1 cap Magnesium Oxide (Mag-Ox) [address] [facility] Last Admin: 04/29/18 19:00 Dose: 800 mg Midodrine (Proamatine) [address] [facility] Last Admin: 04/29/18 19:00 Dose: 5 mg Morphine Sulfate (Morphine) 2 mg IV Q2 PRN PRN Reason: pain Last Admin: 04/29/18 09:37 Dose: 2 mg Pantoprazole Sodium (Protonix Inj) [address] [facility] Last Admin: 04/29/18 08:00 Dose: 40 mg Potassium Chloride (Potassium Chloride Oral Soln) [address] [facility] Last Admin: 04/29/18 09:42 Dose: 20 meq Saliva Substitute (First Magic Mouthwash) [address] [facility] Last Admin: 04/29/18 19:00 Dose: 10 ml - Labs Labs: 04/28/18 06:30 04/28/18 06:30 PT 16.8 SECONDS (9.7-12.2) H 04/12/18 06:10 INR 1.5 04/12/18 06:10 APTT 28 SECONDS (21-34) 04/12/18 06:10 - Constitutional Appears: Well - Head Exam Head Exam: ATRAUMATIC, NORMAL INSPECTION, NORMOCEPHALIC - Eye Exam Eye Exam: EOMI, Normal appearance, PERRL Pupil Exam: NORMAL ACCOMODATION, PERRL - ENT Exam ENT Exam: Mucous Membranes Moist, Normal Exam - Neck Exam Neck Exam: Full ROM, Normal Inspection. absent: Lymphadenopathy - Respiratory Exam Respiratory Exam: Decreased Breath Sounds - Cardiovascular Exam Cardiovascular Exam: REGULAR RHYTHM, +S1, +S2 - GI/Abdominal Exam GI & Abdominal Exam: Soft, Diminished Bowel Sounds - Rectal Exam Rectal Exam: Deferred
[2018-04-30] MEDS: Mag&Al/Simet/Diphen/Lido 237 ML KIT PO SCH ×4 (00:30→17:41)
--- NOTE | 2018-04-30 01:14 | PN ---
DATE: 04/29/2018 SUBJECTIVE: The patient is afebrile. She feels better. PHYSICAL EXAMINATION: VITAL SIGNS: Stable. T-max is 98.4, heart rate of 96 to 100, blood pressure 104/72, respirations are 20. HEENT: Head is atraumatic, normocephalic. NECK: Supple. LUNGS: Clear. HEART: S1, S2. Regular. ABDOMEN: Soft, nontender. No guarding, no rigidity present. EXTREMITIES: Remain with edema. ASSESSMENT AND PLAN: She had bilateral deep venous thromboses, and she is off antibiotics and she says her wounds are healing. She is having less pain, and she will continue to change her position. Jacqueline Saez MD
[2018-04-30] MEDS: Morphine 4 MG/ML VIAL IV PRN (10:10)
[2018-04-30] MEDS: Magnesium Oxide 400 mg Tab UD PO SCH ×3 (10:28→17:41)
[2018-04-30] MEDS: Potassium Chloride 20 mEq/15 ml LIQ UD PO SCH (10:28)
--- NOTE | 2018-04-30 11:48 | CP.PCM.PN ---
Subjective - Date & Time of Evaluation Date of Evaluation: 04/30/18 Time of Evaluation: 09:45 - Subjective Subjective: clinically same Objective - Vital Signs/Intake and Output Vital Signs (last 24 hours): Temp Pulse Resp BP Pulse Ox 98 F 98 H 20 97/67 L 97 04/30/18 07:00 04/30/18 07:00 04/30/18 07:00 04/30/18 07:00 04/30/18 07:00 Intake and Output: 04/30/18 04/30/18 06:59 18:59 Output Total 350 Balance -350 - Medications Medications: Current Medications Apixaban (Eliquis) 5 mg PO BID [facility] Last Admin: 04/30/18 10:28 Dose: 5 mg Calcium Carbonate (Oscal) 500 mg PO DAILY [facility] Last Admin: 04/30/18 10:28 Dose: 500 mg Ergocalciferol (Drisdol 50,000 Intl Units Cap) 1 cap PO Q7D [facility] Last Admin: 04/26/18 11:08 Dose: 1 cap Magnesium Oxide (Mag-Ox) 800 mg PO TID [facility] Last Admin: 04/30/18 10:28 Dose: 800 mg Morphine Sulfate (Morphine) 2 mg IV Q2 PRN PRN Reason: pain Last Admin: 04/30/18 10:10 Dose: 2 mg Pantoprazole Sodium (Protonix Inj) 40 mg IVP Q12H [facility] Last Admin: 04/30/18 09:00 Dose: 40 mg Potassium Chloride (Potassium Chloride Oral Soln) 20 meq PO DAILY [facility] Last Admin: 04/30/18 10:28 Dose: 20 meq Saliva Substitute (First Magic Mouthwash) 10 ml PO Q6 [facility] Last Admin: 04/30/18 05:32 Dose: 10 ml - Labs Labs: 04/28/18 06:30 04/28/18 06:30 PT 16.8 SECONDS (9.7-12.2) H 04/12/18 06:10 INR 1.5 04/12/18 06:10 APTT 28 SECONDS (21-34) 04/12/18 06:10 - Constitutional Appears: Well - Head Exam Head Exam: ATRAUMATIC, NORMAL INSPECTION, NORMOCEPHALIC - Eye Exam Eye Exam: EOMI, Normal appearance, PERRL Pupil Exam: NORMAL ACCOMODATION, PERRL - ENT Exam ENT Exam: Mucous Membranes Moist, Normal Exam - Neck Exam Neck Exam: Full ROM, Normal Inspection. absent: Lymphadenopathy - Respiratory Exam Respiratory Exam: Decreased Breath Sounds - Cardiovascular Exam Cardiovascular Exam: REGULAR RHYTHM, +S1, +S2 - GI/Abdominal Exam GI & Abdominal Exam: Soft, Diminished Bowel Sounds - Rectal Exam Rectal Exam: Deferred
--- NOTE | 2018-04-30 19:56 | CP.PCM.PN ---
Subjective - Date & Time of Evaluation Date of Evaluation: 04/29/18 Time of Evaluation: 12:00 - Subjective Subjective: Feeling better. Objective - Vital Signs/Intake and Output Vital Signs (last 24 hours): Temp Pulse Resp BP Pulse Ox 98.3 F 99 H 20 103/70 100 04/30/18 15:00 04/30/18 15:00 04/30/18 15:00 04/30/18 15:00 04/30/18 15:00 Intake and Output: 04/30/18 05/01/18 18:59 06:59 Intake Total 280 Balance 280 - Medications Medications: Current Medications Apixaban (Eliquis) 5 mg PO BID [facility] Last Admin: 04/30/18 17:41 Dose: 5 mg Calcium Carbonate (Oscal) 500 mg PO DAILY [facility] Last Admin: 04/30/18 10:28 Dose: 500 mg Ergocalciferol (Drisdol 50,000 Intl Units Cap) 1 cap PO Q7D [facility] Last Admin: 04/26/18 11:08 Dose: 1 cap Magnesium Oxide (Mag-Ox) 800 mg PO TID [facility] Last Admin: 04/30/18 17:41 Dose: 800 mg Morphine Sulfate (Morphine) 2 mg IV Q2 PRN PRN Reason: pain Last Admin: 04/30/18 10:10 Dose: 2 mg Pantoprazole Sodium (Protonix Inj) 40 mg IVP Q12H [facility] Last Admin: 04/30/18 09:00 Dose: 40 mg Potassium Chloride (Potassium Chloride Oral Soln) 20 meq PO DAILY [facility] Last Admin: 04/30/18 10:28 Dose: 20 meq Saliva Substitute (First Magic Mouthwash) 10 ml PO Q6 [facility] Last Admin: 04/30/18 17:41 Dose: 10 ml - Labs Labs: 04/28/18 06:30 04/28/18 06:30 PT 16.8 SECONDS (9.7-12.2) H 04/12/18 06:10 INR 1.5 04/12/18 06:10 APTT 28 SECONDS (21-34) 04/12/18 06:10 - Head Exam Head Exam: ATRAUMATIC - Eye Exam Eye Exam: Normal appearance - ENT Exam ENT Exam: Mucous Membranes Dry - Respiratory Exam Respiratory Exam: NORMAL BREATHING PATTERN - Cardiovascular Exam Cardiovascular Exam: +S1, +S2 - GI/Abdominal Exam GI & Abdominal Exam: Normal Bowel Sounds Assessment and Plan (1) Anemia Assessment & Plan: chronic disease from malignancy transfusion support PRN Status: Acute (2) Breast cancer Assessment & Plan: stage IV outpatient chemotherapy Status: Acute
--- NOTE | 2018-04-30 19:58 | CP.PCM.PN ---
Subjective - Date & Time of Evaluation Date of Evaluation: 04/30/18 Time of Evaluation: 19:00 - Subjective Subjective: No complaints. Objective - Vital Signs/Intake and Output Vital Signs (last 24 hours): Temp Pulse Resp BP Pulse Ox 98.3 F 99 H 20 103/70 100 04/30/18 15:00 04/30/18 15:00 04/30/18 15:00 04/30/18 15:00 04/30/18 15:00 Intake and Output: 04/30/18 05/01/18 18:59 06:59 Intake Total 280 Balance 280 - Medications Medications: Current Medications Apixaban (Eliquis) 5 mg PO BID [facility] Last Admin: 04/30/18 17:41 Dose: 5 mg Calcium Carbonate (Oscal) 500 mg PO DAILY [facility] Last Admin: 04/30/18 10:28 Dose: 500 mg Ergocalciferol (Drisdol 50,000 Intl Units Cap) 1 cap PO Q7D [facility] Last Admin: 04/26/18 11:08 Dose: 1 cap Magnesium Oxide (Mag-Ox) 800 mg PO TID [facility] Last Admin: 04/30/18 17:41 Dose: 800 mg Morphine Sulfate (Morphine) 2 mg IV Q2 PRN PRN Reason: pain Last Admin: 04/30/18 10:10 Dose: 2 mg Pantoprazole Sodium (Protonix Inj) 40 mg IVP Q12H [facility] Last Admin: 04/30/18 09:00 Dose: 40 mg Potassium Chloride (Potassium Chloride Oral Soln) 20 meq PO DAILY [facility] Last Admin: 04/30/18 10:28 Dose: 20 meq Saliva Substitute (First Magic Mouthwash) 10 ml PO Q6 [facility] Last Admin: 04/30/18 17:41 Dose: 10 ml - Labs Labs: 04/28/18 06:30 04/28/18 06:30 PT 16.8 SECONDS (9.7-12.2) H 04/12/18 06:10 INR 1.5 04/12/18 06:10 APTT 28 SECONDS (21-34) 04/12/18 06:10 - Head Exam Head Exam: ATRAUMATIC - Eye Exam Eye Exam: Normal appearance - ENT Exam ENT Exam: Mucous Membranes Dry - Respiratory Exam Respiratory Exam: NORMAL BREATHING PATTERN - Cardiovascular Exam Cardiovascular Exam: +S1, +S2 - GI/Abdominal Exam GI & Abdominal Exam: Normal Bowel Sounds Assessment and Plan (1) DVT (deep venous thrombosis) Assessment & Plan: b/l LE - provoked from malignancy and immobility on Eliquis. Status: Acute (2) Anemia Assessment & Plan: chronic disease from malignancy transfusion support PRN will give a dose of Procrit Status: Acute (3) Breast cancer Assessment & Plan: stage IV outpatient treatment Status: Acute
[2018-05-01] MEDS: Morphine 4 MG/ML VIAL IV PRN ×3 (00:12→11:24)
[2018-05-01] MEDS: Mag&Al/Simet/Diphen/Lido 237 ML KIT PO SCH ×4 (00:14→17:51)
[2018-05-01] MEDS: Magnesium Oxide 400 mg Tab UD PO SCH ×3 (10:04→17:51)
[2018-05-01] MEDS: Potassium Chloride 20 mEq/15 ml LIQ UD PO SCH (10:04)
--- NOTE | 2018-05-01 14:15 | CP.PCM.PN ---
Subjective - Date & Time of Evaluation Date of Evaluation: 05/01/18 Time of Evaluation: 09:45 - Subjective Subjective: clinically same Objective - Vital Signs/Intake and Output Vital Signs (last 24 hours): Temp Pulse Resp BP Pulse Ox 98 F 108 H 20 112/77 98 05/01/18 11:00 05/01/18 11:00 05/01/18 11:00 05/01/18 11:00 05/01/18 11:00 Intake and Output: 05/01/18 05/01/18 06:59 18:59 Intake Total 350 Output Total 350 Balance 0 - Medications Medications: Current Medications Apixaban (Eliquis) 5 mg PO BID [facility] Last Admin: 05/01/18 10:04 Dose: 5 mg Calcium Carbonate (Oscal) 500 mg PO DAILY [facility] Last Admin: 05/01/18 10:04 Dose: 500 mg Ergocalciferol (Drisdol 50,000 Intl Units Cap) 1 cap PO Q7D [facility] Last Admin: 04/26/18 11:08 Dose: 1 cap Magnesium Oxide (Mag-Ox) 800 mg PO TID [facility] Last Admin: 05/01/18 13:39 Dose: Not Given Pantoprazole Sodium (Protonix Inj) 40 mg IVP Q12H [facility] Last Admin: 05/01/18 09:30 Dose: 40 mg Potassium Chloride (Potassium Chloride Oral Soln) 20 meq PO DAILY [facility] Last Admin: 05/01/18 10:04 Dose: 20 meq Saliva Substitute (First Magic Mouthwash) 10 ml PO Q6 [facility] Last Admin: 05/01/18 13:38 Dose: Not Given - Labs Labs: 04/28/18 06:30 04/28/18 06:30 PT 16.8 SECONDS (9.7-12.2) H 04/12/18 06:10 INR 1.5 04/12/18 06:10 APTT 28 SECONDS (21-34) 04/12/18 06:10 - Constitutional Appears: Well - Head Exam Head Exam: ATRAUMATIC, NORMAL INSPECTION, NORMOCEPHALIC - Eye Exam Eye Exam: EOMI, Normal appearance, PERRL Pupil Exam: NORMAL ACCOMODATION, PERRL - ENT Exam ENT Exam: Mucous Membranes Moist, Normal Exam - Neck Exam Neck Exam: Full ROM, Normal Inspection. absent: Lymphadenopathy - Respiratory Exam Respiratory Exam: Decreased Breath Sounds - Cardiovascular Exam Cardiovascular Exam: REGULAR RHYTHM, +S1, +S2 - GI/Abdominal Exam GI & Abdominal Exam: Soft, Diminished Bowel Sounds - Rectal Exam Rectal Exam: Deferred
[2018-05-01] MEDS: Morphine 4 MG/ML VIAL IVP PRN ×2 (19:21→22:25)
[2018-05-02] MEDS: Mag&Al/Simet/Diphen/Lido 237 ML KIT PO SCH ×4 (00:55→17:53)
[2018-05-02] MEDS: Morphine 4 MG/ML VIAL IVP PRN ×3 (06:25→13:06)
[2018-05-02] MEDS: Magnesium Oxide 400 mg Tab UD PO SCH ×3 (09:50→17:45)
[2018-05-02] MEDS: Potassium Chloride 20 mEq/15 ml LIQ UD PO SCH (09:50)
--- NOTE | 2018-05-02 13:03 | CP.PCM.PN ---
Subjective - Date & Time of Evaluation Date of Evaluation: 05/02/18 Time of Evaluation: 13:02 - Subjective Subjective: Nephrology Consultation Note: Assessment: Stable Hypomagnesemia Hypokalemia likley due to [place] based chemotherapy induced renal wasting as evident by high TTKG and high FeMag Hyponatremia likely SIADH Hypoalbuminemia Obesity, Colitis, GI bleed pancytopenia metastatic breast CA vit d def DVT Plan renal function stable and WNL. check labs in AM Hypertension control with meds as ordered. Maintain hemodynamics stable. Avoid hypotension. Monitor Input/Output, daily weights and renal function with basic metabolic panel supplement lytes as needed consider appetite stimulants anemia management as per heme/onc added weekly vit d Dose meds/antibiotics for normal GFR. Glycemic control. pt was encouraged to eat protein food Further work up/management as per primary team Thanks for allowing me to participate in care of your patient. Will follow patient with you. Please call if any Qs. had d/w team Dr Ton Zelaya Office: [phone] Chief Complaint; low appetite Reason for consult: electrolytes abnormalities HPI: Pt is a 58 F with hx of hypertension obesity metastatic breast CA inv olving brain, sp radiation, presently on chemo with carboplatin and gemcitabine presented with complaints of paina abdomen and diarrhoea, admitted with ? GI bleed, colitis and pancytopenia. renal consult for electrolytes abnormalities such as low Na, Ca, Mg, K Denies OTC/herbal meds or NSAIDs c/o decreased appetite, loss of taste. no SOB. no further diarrhoea. oral intake better ROS: c/o leg swelling Cardiovascular: No chest pain. Pulmonary: no shortness of breath Gastrointestinal: denies abdominal pain No nausea. No vomiting. has upset stomach Genitourinary: No pain while urinating. Denies blood in urine. All other negative except as mentioned in HPI Physical Examination: General Appearance: Comfortable, in no acute respiratory distress, co-operative . obese Vitals reviewed and noted as below Head; Atraumatic, normocephalic. skin hyperpigmented ENT: no ulcers no thrush. Tongue is midline. Oropharynx: no rash or ulcers. EYES: Pupils are equal, round and reactive to light accommodation. Eye muscles and extraocular movement intact. Sclera is anicteric. Neck; supple no lymphadenopathy, no thyromegaly or bruit Lungs: Normal respiratory rate/effort. Breath sounds bilateral equal and clear Heart: Normal rate. s1s2 normal. No rub or gallop. Extremities: 1+ edema. No varicose veins. RUE lymphedema + Neurological: Patient is alert, awake and oriented to person, place and time. No focal deficit. Strength bilateral appropriate and equal Skin: Warm and dry. Normal turgor. No rash. Palpitation: Normal elasticity for age Abdomen: Abdomen is soft. Bowel sounds +. There is no abdominal tenderness, no guarding/rigidity no organomegaly Psych: normal insight and normal affect/mood MSK: no joint tenderness or swelling. Digits and nails normal, no deformity : kidney or bladder not palpable Labs/imaging reviewed. Past medical history, past surgical history, family history, social history, allergy reviewed and noted as below Family hx: no hx of CKD. Rest non-contributory TTKG 7 FeMag 35% Objective - Vital Signs/Intake and Output Vital Signs (last 24 hours): Temp Pulse Resp BP Pulse Ox 97.9 F 96 H 18 109/57 L 99 05/02/18 08:00 05/02/18 08:00 05/02/18 08:00 05/02/18 08:00 05/02/18 08:00 Intake and Output: 05/02/18 05/02/18 06:59 18:59 Intake Total 100 Output Total 300 Balance -200 - Medications Medications: Current Medications Apixaban (Eliquis) 5 mg PO BID [facility] Last Admin: 05/02/18 09:50 Dose: 5 mg Calcium Carbonate (Oscal) 500 mg PO DAILY [facility] Last Admin: 05/02/18 09:50 Dose: 500 mg Ergocalciferol (Drisdol 50,000 Intl Units Cap) 1 cap PO Q7D [facility] Last Admin: 04/26/18 11:08 Dose: 1 cap Magnesium Oxide (Mag-Ox) 800 mg PO TID [facility] Last Admin: 05/02/18 13:01 Dose: 800 mg Morphine Sulfate (Morphine) 2 mg IVP Q2 PRN PRN Reason: pain Last Admin: 05/02/18 09:46 Dose: 2 mg Pantoprazole Sodium (Protonix Inj) 40 mg IVP Q12H [facility] Last Admin: 05/02/18 08:00 Dose: 40 mg Potassium Chloride (Potassium Chloride Oral Soln) 20 meq PO DAILY [facility] Last Admin: 05/02/18 09:50 Dose: 20 meq Saliva Substitute (First Magic Mouthwash) 10 ml PO Q6 [facility] Last Admin: 05/02/18 13:02 Dose: 10 ml - Labs Labs: 04/28/18 06:30 04/28/18 06:30 PT 16.8 SECONDS (9.7-12.2) H 04/12/18 06:10 INR 1.5 04/12/18 06:10 APTT 28 SECONDS (21-34) 04/12/18 06:10
--- NOTE | 2018-05-02 18:05 | CP.PCM.PN ---
Subjective - Date & Time of Evaluation Date of Evaluation: 05/02/18 Time of Evaluation: 09:15 - Subjective Subjective: clinically same Objective - Vital Signs/Intake and Output Vital Signs (last 24 hours): Temp Pulse Resp BP Pulse Ox 98.9 F 104 H 20 106/73 99 05/02/18 16:00 05/02/18 16:00 05/02/18 16:00 05/02/18 16:00 05/02/18 16:00 Intake and Output: 05/02/18 05/02/18 06:59 18:59 Intake Total 100 350 Output Total 300 300 Balance -200 50 - Medications Medications: Current Medications Apixaban (Eliquis) 5 mg PO BID [facility] Last Admin: 05/02/18 17:45 Dose: 5 mg Calcium Carbonate (Oscal) 500 mg PO DAILY [facility] Last Admin: 05/02/18 09:50 Dose: 500 mg Ergocalciferol (Drisdol 50,000 Intl Units Cap) 1 cap PO Q7D [facility] Last Admin: 04/26/18 11:08 Dose: 1 cap Magnesium Oxide (Mag-Ox) 800 mg PO TID [facility] Last Admin: 05/02/18 17:45 Dose: 800 mg Morphine Sulfate (Morphine) 2 mg IVP Q2 PRN PRN Reason: pain Last Admin: 05/02/18 13:06 Dose: 2 mg Pantoprazole Sodium (Protonix Inj) 40 mg IVP Q12H [facility] Last Admin: 05/02/18 08:00 Dose: 40 mg Potassium Chloride (Potassium Chloride Oral Soln) 20 meq PO DAILY [facility] Last Admin: 05/02/18 09:50 Dose: 20 meq Saliva Substitute (First Magic Mouthwash) 10 ml PO Q6 [facility] Last Admin: 05/02/18 17:53 Dose: 10 ml - Labs Labs: 04/28/18 06:30 04/28/18 06:30 PT 16.8 SECONDS (9.7-12.2) H 04/12/18 06:10 INR 1.5 04/12/18 06:10 APTT 28 SECONDS (21-34) 04/12/18 06:10
--- NOTE | 2018-05-02 21:01 | CP.PCM.PN ---
Subjective - Date & Time of Evaluation Date of Evaluation: 05/02/18 Time of Evaluation: 19:00 - Subjective Subjective: Has some lower back pain. Objective - Vital Signs/Intake and Output Vital Signs (last 24 hours): Temp Pulse Resp BP Pulse Ox 98.9 F 104 H 20 106/73 99 05/02/18 16:00 05/02/18 16:00 05/02/18 16:00 05/02/18 16:00 05/02/18 16:00 Intake and Output: 05/02/18 05/03/18 18:59 06:59 Intake Total 350 Output Total 300 Balance 50 - Medications Medications: Current Medications Apixaban (Eliquis) 5 mg PO BID [facility] Last Admin: 05/02/18 17:45 Dose: 5 mg Calcium Carbonate (Oscal) 500 mg PO DAILY [facility] Last Admin: 05/02/18 09:50 Dose: 500 mg Ergocalciferol (Drisdol 50,000 Intl Units Cap) 1 cap PO Q7D [facility] Last Admin: 04/26/18 11:08 Dose: 1 cap Magnesium Oxide (Mag-Ox) 800 mg PO TID [facility] Last Admin: 05/02/18 17:45 Dose: 800 mg Morphine Sulfate (Morphine) 2 mg IVP Q2 PRN PRN Reason: pain Last Admin: 05/02/18 13:06 Dose: 2 mg Pantoprazole Sodium (Protonix Inj) 40 mg IVP Q12H [facility] Last Admin: 05/02/18 20:25 Dose: 40 mg Potassium Chloride (Potassium Chloride Oral Soln) 20 meq PO DAILY [facility] Last Admin: 05/02/18 09:50 Dose: 20 meq Saliva Substitute (First Magic Mouthwash) 10 ml PO Q6 [facility] Last Admin: 05/02/18 17:53 Dose: 10 ml - Labs Labs: 04/28/18 06:30 04/28/18 06:30 PT 16.8 SECONDS (9.7-12.2) H 04/12/18 06:10 INR 1.5 04/12/18 06:10 APTT 28 SECONDS (21-34) 04/12/18 06:10 - Head Exam Head Exam: ATRAUMATIC - Eye Exam Eye Exam: Normal appearance - ENT Exam ENT Exam: Mucous Membranes Dry - Respiratory Exam Respiratory Exam: NORMAL BREATHING PATTERN - Cardiovascular Exam Cardiovascular Exam: +S1, +S2 - GI/Abdominal Exam GI & Abdominal Exam: Normal Bowel Sounds Assessment and Plan (1) DVT (deep venous thrombosis) Assessment & Plan: provoked from immobility and malignancy on therapeutic Eliquis Status: Acute (2) Anemia Assessment & Plan: chronic disease Status: Acute (3) Breast cancer Assessment & Plan: stage IV outpatient treatment Status: Acute
[2018-05-03] MEDS: Morphine 4 MG/ML VIAL IVP PRN ×5 (00:08→21:12)
[2018-05-03] MEDS: Mag&Al/Simet/Diphen/Lido 237 ML KIT PO SCH ×4 (00:11→17:34)
[2018-05-03 07:49] LABS: BLOOD UREA NITROGEN 12 mg/dL (7-17); CALCIUM 8.7 mg/dl (8.6-10.4); GFR NON-AFRICAN AMERICAN > 60
[2018-05-03] MEDS: Potassium Chloride 20 mEq/15 ml LIQ UD PO SCH (10:14)
[2018-05-03] MEDS: Magnesium Oxide 400 mg Tab UD PO SCH ×3 (10:14→17:26)
[2018-05-03] MEDS: Ergocalciferol 50,000 Intl Units Cap PO SCH (11:28)
[2018-05-03] MEDS: Magnesium Sulfate 1 gm in D5W 1 GM/100 ML BAG IVPB SCH ×2 (12:19→12:20)
--- NOTE | 2018-05-03 12:43 | CP.PCM.PN ---
Subjective - Date & Time of Evaluation Date of Evaluation: 05/03/18 Time of Evaluation: 12:43 - Subjective Subjective: Nephrology Consultation Note: Assessment: Stable Hypomagnesemia Hypokalemia likley due to [place] based chemotherapy induced renal wasting as evident by high TTKG and high FeMag Hyponatremia likely SIADH Hypoalbuminemia Obesity, Colitis, GI bleed pancytopenia metastatic breast CA vit d def DVT Plan renal function stable and WNL. Hypertension control with meds as ordered. Maintain hemodynamics stable. Avoid hypotension. Monitor Input/Output, daily weights and renal function with basic metabolic panel supplement lytes as needed consider appetite stimulants anemia management as per heme/onc added weekly vit d Dose meds/antibiotics for normal GFR. Glycemic control. pt was encouraged to eat protein food Further work up/management as per primary team Thanks for allowing me to participate in care of your patient. Will follow patient with you. Please call if any Qs. had d/w team Dr Ton Zelaya Office: [phone] Chief Complaint; low appetite Reason for consult: electrolytes abnormalities HPI: Pt is a 58 F with hx of hypertension obesity metastatic breast CA involving brain, sp radiation, presently on chemo with carboplatin and gemcitabine presented with complaints of paina abdomen and diarrhoea, admitted with ? GI bleed, colitis and pancytopenia. renal consult for electrolytes abnormalities such as low Na, Ca, Mg, K Denies OTC/herbal meds or NSAIDs c/o decreased appetite, loss of taste. no SOB. no further diarrhoea. oral intake better ROS: c/o leg swelling Cardiovascular: No chest pain. Pulmonary: no shortness of breath at present. Gastrointestinal: denies abdominal pain No nausea. No vomiting. had upset stomach Genitourinary: No pain while urinating. Denies blood in urine. All other negative except as mentioned in HPI Physical Examination: General Appearance: Comfortable, in no acute respiratory distress, co-operative . obese Vitals reviewed and noted as below Head; Atraumatic, normocephalic. skin hyperpigmented ENT: no ulcers no thrush. Tongue is midline. Oropharynx: no rash or ulcers. EYES: Pupils are equal, round and reactive to light accommodation. Eye muscles and extraocular movement intact. Sclera is anicteric. Neck; supple no lymphadenopathy, no thyromegaly or bruit Lungs: Normal respiratory rate/effort. Breath sounds bilateral equal and clear Heart: Normal rate. s1s2 normal. No rub or gallop. Extremities: 1+ edema. No varicose veins. RUE lymphedema + Neurological: Patient is alert, awake and oriented to person, place and time. No focal deficit. Strength bilateral appropriate and equal Skin: Warm and dry. Normal turgor. No rash. Palpitation: Normal elasticity for age Abdomen: Abdomen is soft. Bowel sounds +. There is no abdominal tenderness, no guarding/rigidity no organomegaly Psych: normal insight and normal affect/mood MSK: no joint tenderness or swelling. Digits and nails normal, no deformity : kidney or bladder not palpable Labs/imaging reviewed. Past medical history, past surgical history, family history, social history, allergy reviewed and noted as below Family hx: no hx of CKD. Rest non-contributory TTKG 7 FeMag 35% Objective - Vital Signs/Intake and Output Vital Signs (last 24 hours): Temp Pulse Resp BP Pulse Ox 97.9 F 96 H 20 106/66 97 05/03/18 07:35 05/03/18 07:35 05/03/18 07:35 05/03/18 07:35 05/03/18 07:35 Intake and Output: 05/03/18 05/03/18 06:59 18:59 Intake Total 300 Output Total 202 Balance 98 - Medications Medications: Current Medications Apixaban (Eliquis) 5 mg PO BID [facility] Last Admin: 05/03/18 10:14 Dose: 5 mg Calcium Carbonate (Oscal) 500 mg PO DAILY [facility] Last Admin: 05/03/18 10:14 Dose: 500 mg Ergocalciferol (Drisdol 50,000 Intl Units Cap) 1 cap PO Q7D [facility] Last Admin: 05/03/18 11:28 Dose: Not Given Magnesium Oxide (Mag-Ox) 800 mg PO TID [facility] Last Admin: 05/03/18 10:14 Dose: 800 mg Morphine Sulfate (Morphine) 2 mg IVP Q2 PRN PRN Reason: pain Last Admin: 05/03/18 10:14 Dose: 2 mg Pantoprazole Sodium (Protonix Inj) 40 mg IVP Q12H [facility] Last Admin: 05/03/18 10:15 Dose: 40 mg Potassium Chloride (Potassium Chloride Oral Soln) 20 meq PO DAILY [facility] Last Admin: 05/03/18 10:14 Dose: 20 meq Saliva Substitute (First Magic Mouthwash) 10 ml PO Q6 [facility] Last Admin: 05/03/18 11:28 Dose: Not Given - Labs Labs: 04/28/18 06:30 05/03/18 06:52 PT 16.8 SECONDS (9.7-12.2) H 04/12/18 06:10 INR 1.5 04/12/18 06:10 APTT 28 SECONDS (21-34) 04/12/18 06:10
--- NOTE | 2018-05-03 14:26 | CP.PCM.PN ---
Subjective - Date & Time of Evaluation Date of Evaluation: 05/03/18 Time of Evaluation: 09:45 - Subjective Subjective: clinically same Objective - Vital Signs/Intake and Output Vital Signs (last 24 hours): Temp Pulse Resp BP Pulse Ox 97.9 F 96 H 20 106/66 97 05/03/18 07:35 05/03/18 07:35 05/03/18 07:35 05/03/18 07:35 05/03/18 07:35 Intake and Output: 05/03/18 05/03/18 06:59 18:59 Intake Total 300 Output Total 202 Balance 98 - Medications Medications: Current Medications Apixaban (Eliquis) 5 mg PO BID [facility] Last Admin: 05/03/18 10:14 Dose: 5 mg Calcium Carbonate (Oscal) 500 mg PO DAILY [facility] Last Admin: 05/03/18 10:14 Dose: 500 mg Ergocalciferol (Drisdol 50,000 Intl Units Cap) 1 cap PO Q7D [facility] Last Admin: 05/03/18 11:28 Dose: Not Given Magnesium Oxide (Mag-Ox) 800 mg PO TID [facility] Last Admin: 05/03/18 10:14 Dose: 800 mg Morphine Sulfate (Morphine) 2 mg IVP Q2 PRN PRN Reason: pain Last Admin: 05/03/18 10:14 Dose: 2 mg Pantoprazole Sodium (Protonix Inj) 40 mg IVP Q12H [facility] Last Admin: 05/03/18 10:15 Dose: 40 mg Potassium Chloride (Potassium Chloride Oral Soln) 20 meq PO DAILY [facility] Last Admin: 05/03/18 10:14 Dose: 20 meq Saliva Substitute (First Magic Mouthwash) 10 ml PO Q6 [facility] Last Admin: 05/03/18 11:28 Dose: Not Given - Labs Labs: 04/28/18 06:30 05/03/18 06:52 PT 16.8 SECONDS (9.7-12.2) H 04/12/18 06:10 INR 1.5 04/12/18 06:10 APTT 28 SECONDS (21-34) 04/12/18 06:10 - Constitutional Appears: Well - Head Exam Head Exam: ATRAUMATIC, NORMAL INSPECTION, NORMOCEPHALIC - Eye Exam Eye Exam: EOMI, Normal appearance, PERRL Pupil Exam: NORMAL ACCOMODATION, PERRL - ENT Exam ENT Exam: Mucous Membranes Moist, Normal Exam - Neck Exam Neck Exam: Full ROM, Normal Inspection. absent: Lymphadenopathy - Respiratory Exam Respiratory Exam: Decreased Breath Sounds - Cardiovascular Exam Cardiovascular Exam: REGULAR RHYTHM, +S1, +S2 - GI/Abdominal Exam GI & Abdominal Exam: Soft, Diminished Bowel Sounds - Rectal Exam Rectal Exam: Deferred
--- NOTE | 2018-05-03 21:34 | CP.PCM.PN ---
Subjective - Date & Time of Evaluation Date of Evaluation: 05/03/18 Time of Evaluation: 13:00 - Subjective Subjective: Feeling better, father at bedside. Objective - Vital Signs/Intake and Output Vital Signs (last 24 hours): Temp Pulse Resp BP Pulse Ox 97.9 F 101 H 20 94/66 L 95 05/03/18 16:00 05/03/18 16:00 05/03/18 16:00 05/03/18 16:00 05/03/18 16:00 - Medications Medications: Current Medications Apixaban (Eliquis) 5 mg PO BID [facility] Last Admin: 05/03/18 17:26 Dose: 5 mg Calcium Carbonate (Oscal) 500 mg PO DAILY [facility] Last Admin: 05/03/18 10:14 Dose: 500 mg Ergocalciferol (Drisdol 50,000 Intl Units Cap) 1 cap PO Q7D [facility] Last Admin: 05/03/18 11:28 Dose: Not Given Magnesium Oxide (Mag-Ox) 800 mg PO TID [facility] Last Admin: 05/03/18 17:26 Dose: 800 mg Morphine Sulfate (Morphine) 2 mg IVP Q2 PRN PRN Reason: pain Last Admin: 05/03/18 21:12 Dose: 2 mg Pantoprazole Sodium (Protonix Inj) 40 mg IVP Q12H [facility] Last Admin: 05/03/18 21:12 Dose: 40 mg Potassium Chloride (Potassium Chloride Oral Soln) 20 meq PO DAILY [facility] Last Admin: 05/03/18 10:14 Dose: 20 meq Saliva Substitute (First Magic Mouthwash) 10 ml PO Q6 [facility] Last Admin: 05/03/18 17:34 Dose: Not Given - Labs Labs: 04/28/18 06:30 05/03/18 06:52 PT 16.8 SECONDS (9.7-12.2) H 04/12/18 06:10 INR 1.5 04/12/18 06:10 APTT 28 SECONDS (21-34) 04/12/18 06:10 - Head Exam Head Exam: ATRAUMATIC - Eye Exam Eye Exam: Normal appearance - ENT Exam ENT Exam: Mucous Membranes Dry - Respiratory Exam Respiratory Exam: NORMAL BREATHING PATTERN - Cardiovascular Exam Cardiovascular Exam: +S1, +S2 - GI/Abdominal Exam GI & Abdominal Exam: Normal Bowel Sounds Assessment and Plan (1) DVT (deep venous thrombosis) Assessment & Plan: on Eliquis Status: Acute (2) Anemia Assessment & Plan: chronic disease transfusion support PRN Status: Acute (3) Breast cancer Assessment & Plan: stage IV outpatient treatment Status: Acute
[2018-05-04] MEDS: Morphine 4 MG/ML VIAL IVP PRN ×4 (06:11→22:49)
[2018-05-04] MEDS: Mag&Al/Simet/Diphen/Lido 237 ML KIT PO SCH ×4 (06:13→17:40)
[2018-05-04] MEDS: Magnesium Oxide 400 mg Tab UD PO SCH ×4 (10:13→17:40)
[2018-05-04] MEDS: Potassium Chloride 20 mEq/15 ml LIQ UD PO SCH (10:13)
--- NOTE | 2018-05-04 11:27 | CP.PCM.PN ---
Subjective - Date & Time of Evaluation Date of Evaluation: 05/04/18 Time of Evaluation: 11:27 - Subjective Subjective: Nephrology Consultation Note: Assessment: Stable Hypomagnesemia Hypokalemia likley due to [place] based chemotherapy induced renal wasting as evident by high TTKG and high FeMag Hyponatremia likely SIADH Hypoalbuminemia Obesity, Colitis, GI bleed pancytopenia metastatic breast CA vit d def DVT Plan renal function stable and WNL. Hypertension control with meds as ordered. Maintain hemodynamics stable. Avoid hypotension. Monitor Input/Output, daily weights and renal function with basic metabolic panel supplement lytes as needed anemia management as per heme/onc added weekly vit d Dose meds/antibiotics for normal GFR. Glycemic control. pt was encouraged to eat protein food Further work up/management as per primary team Thanks for allowing me to participate in care of your patient. Will follow patient with you. Please call if any Qs. had d/w team Dr Ton Zelaya Office: [phone] Chief Complaint; low appetite Reason for consult: electrolytes abnormalities HPI: Pt is a 58 F with hx of hypertension obesity metastatic breast CA involving brain, sp radiation, presently on chemo with carboplatin and gemcitabine presented with complaints of paina abdomen and diarrhoea, admitted with ? GI bleed, colitis and pancytopenia. renal consult for electrolytes abnormalities such as low Na, Ca, Mg, K Denies OTC/herbal meds or NSAIDs c/o decreased appetite, loss of taste. no SOB. no further diarrhoea. oral intake better ROS: c/o leg swelling Cardiovascular: No chest pain. Pulmonary: no shortness of breath at present. Gastrointestinal: denies abdominal pain No nausea. No vomiting. had upset stomach Genitourinary: No pain while urinating. Denies blood in urine. All other negative except as mentioned in HPI Physical Examination: General Appearance: Comfortable, in no acute respiratory distress, co-operative . obese Vitals reviewed and noted as below Head; Atraumatic, normocephalic. skin hyperpigmented ENT: no ulcers no thrush. Tongue is midline. Oropharynx: no rash or ulcers. EYES: Pupils are equal, round and reactive to light accommodation. Eye muscles and extraocular movement intact. Sclera is anicteric. Neck; supple no lymphadenopathy, no thyromegaly or bruit Lungs: Normal respiratory rate/effort. Breath sounds bilateral equal and clear Heart: Normal rate. s1s2 normal. No rub or gallop. Extremities: 1+ edema. No varicose veins. RUE lymphedema + Neurological: Patient is alert, awake and oriented to person, place and time. No focal deficit. Strength bilateral appropriate and equal Skin: Warm and dry. Normal turgor. No rash. Palpitation: Normal elasticity for age Abdomen: Abdomen is soft. Bowel sounds +. There is no abdominal tenderness, no guarding/rigidity no organomegaly Psych: normal insight and normal affect/mood MSK: no joint tenderness or swelling. Digits and nails normal, no deformity : kidney or bladder not palpable Labs/imaging reviewed. Past medical history, past surgical history, family history, social history, allergy reviewed and noted as below Family hx: no hx of CKD. Rest non-contributory TTKG 7 FeMag 35% Objective - Vital Signs/Intake and Output Vital Signs (last 24 hours): Temp Pulse Resp BP Pulse Ox 98.1 F 88 18 122/81 100 05/04/18 08:00 05/04/18 08:00 05/04/18 08:00 05/04/18 08:00 05/04/18 08:00 Intake and Output: 05/04/18 05/04/18 06:59 18:59 Intake Total 250 Output Total 150 Balance 100 - Medications Medications: Current Medications Apixaban (Eliquis) 5 mg PO BID [facility] Last Admin: 05/04/18 10:13 Dose: 5 mg Calcium Carbonate (Oscal) 500 mg PO DAILY [facility] Last Admin: 05/04/18 10:13 Dose: 500 mg Ergocalciferol (Drisdol 50,000 Intl Units Cap) 1 cap PO Q7D [facility] Last Admin: 05/03/18 11:28 Dose: Not Given Magnesium Oxide (Mag-Ox) 800 mg PO TID [facility] Last Admin: 05/04/18 10:13 Dose: 800 mg Morphine Sulfate (Morphine) 2 mg IVP Q2 PRN PRN Reason: pain Last Admin: 05/04/18 11:18 Dose: 2 mg Pantoprazole Sodium (Protonix Inj) 40 mg IVP Q12H [facility] Last Admin: 05/04/18 07:51 Dose: 40 mg Potassium Chloride (Potassium Chloride Oral Soln) 20 meq PO DAILY [facility] Last Admin: 05/04/18 10:13 Dose: 20 meq Saliva Substitute (First Magic Mouthwash) 10 ml PO Q6 [facility] Last Admin: 05/04/18 11:19 Dose: 10 ml - Labs Labs: 04/28/18 06:30 05/03/18 06:52 PT 16.8 SECONDS (9.7-12.2) H 04/12/18 06:10 INR 1.5 04/12/18 06:10 APTT 28 SECONDS (21-34) 04/12/18 06:10
[2018-05-04 15:16] LABS: BASO % 0.2 % (0.0-2.0); EOS % 0.5 % (0.0-4.0); HEMOGLOBIN 8.8 g/dL (11.0-16.0); LYMPH # 0.4 K/uL (1.0-4.3); LYMPH % 6.5 % (20.0-40.0); MEAN CELL VOLUME 87.5 fL (81.0-99.0); MEAN CORPUSCULAR HEMOGLOBIN 28.2 pg (27.0-31.0); MEAN CORPUSCULAR HGB CONC 32.3 g/dL (33.0-37.0); MEAN PLATELET VOLUME 6.4 fL (7.2-11.7); MONO # 0.9 K/uL (0.0-0.8); MONO % 14.7 % (0.0-10.0); NEUT # 4.9 K/uL (1.8-7.0); NEUT % 78.1 % (50.0-75.0); NRBC % 0.4 % (0.0-2.0); RBC 3.11 Mil/uL (3.80-5.20); RED CELL DISTRIBUTION WIDTH 19.7 % (11.5-14.5)
[2018-05-04 15:25] LABS: WHITE BLOOD COUNT 6.2 K/uL (4.8-10.8)
[2018-05-04 15:26] LABS: PLATELET COUNT 487 K/uL (130-400)
[2018-05-04 15:35] LABS: EOSINOPHIL 1 % (0-4); LYMPHOCYTE 4 % (20-40); MONOCYTE 14 % (0-10); NEUTROPHIL 81 % (50-75); TOTAL CELLS COUNTED 100
[2018-05-04 15:36] LABS: ANISOCYTOSIS SLIGHT; HYPOCHROMIC SLIGHT; PLATELET ESTIMATE SLIGHTLY INCREASED (NORMAL); POLYCHROMIC SLIGHT
[2018-05-04 15:38] LABS: OVALOCYTES SLIGHT
[2018-05-04 18:13] VITALS: RESP 20
--- NOTE | 2018-05-04 18:14 | CP.PCM.PN ---
Subjective - Date & Time of Evaluation Date of Evaluation: 05/04/18 Time of Evaluation: 10:00 - Subjective Subjective: clinically same Objective - Vital Signs/Intake and Output Vital Signs (last 24 hours): Temp Pulse Resp BP Pulse Ox 98.2 F 99 H 20 109/73 96 05/04/18 16:00 05/04/18 16:00 05/04/18 16:00 05/04/18 16:00 05/04/18 16:00 Intake and Output: 05/04/18 05/04/18 06:59 18:59 Intake Total 250 300 Output Total 150 250 Balance 100 50 - Medications Medications: Current Medications Apixaban (Eliquis) 5 mg PO BID [facility] Last Admin: 05/04/18 17:40 Dose: 5 mg Calcium Carbonate (Oscal) 500 mg PO DAILY [facility] Last Admin: 05/04/18 10:13 Dose: 500 mg Ergocalciferol (Drisdol 50,000 Intl Units Cap) 1 cap PO Q7D [facility] Last Admin: 05/03/18 11:28 Dose: Not Given Magnesium Oxide (Mag-Ox) 800 mg PO TID [facility] Last Admin: 05/04/18 17:40 Dose: 800 mg Morphine Sulfate (Morphine) 2 mg IVP Q2 PRN PRN Reason: pain Last Admin: 05/04/18 14:51 Dose: 2 mg Pantoprazole Sodium (Protonix Inj) 40 mg IVP Q12H [facility] Last Admin: 05/04/18 07:51 Dose: 40 mg Potassium Chloride (Potassium Chloride Oral Soln) 20 meq PO DAILY [facility] Last Admin: 05/04/18 10:13 Dose: 20 meq Saliva Substitute (First Magic Mouthwash) 10 ml PO Q6 [facility] Last Admin: 05/04/18 17:40 Dose: 10 ml - Labs Labs: 05/04/18 15:13 05/03/18 06:52 PT 16.8 SECONDS (9.7-12.2) H 04/12/18 06:10 INR 1.5 04/12/18 06:10 APTT 28 SECONDS (21-34) 04/12/18 06:10 - Constitutional Appears: Well - Head Exam Head Exam: ATRAUMATIC, NORMAL INSPECTION, NORMOCEPHALIC - Eye Exam Eye Exam: EOMI, Normal appearance, PERRL Pupil Exam: NORMAL ACCOMODATION, PERRL - ENT Exam ENT Exam: Mucous Membranes Moist, Normal Exam - Neck Exam Neck Exam: Full ROM, Normal Inspection. absent: Lymphadenopathy - Respiratory Exam Respiratory Exam: Decreased Breath Sounds - Cardiovascular Exam Cardiovascular Exam: REGULAR RHYTHM, +S1, +S2 - GI/Abdominal Exam GI & Abdominal Exam: Soft, Diminished Bowel Sounds - Rectal Exam Rectal Exam: Deferred
[2018-05-05] MEDS: Mag&Al/Simet/Diphen/Lido 237 ML KIT PO SCH ×3 (06:17→12:55)
[2018-05-05] MEDS: Morphine 4 MG/ML VIAL IVP PRN ×2 (06:25→12:55)
[2018-05-05 08:26] VITALS: BP 106/66; PULSE 96; TEMP 98.3; O2SAT 100
[2018-05-05] MEDS: Magnesium Oxide 400 mg Tab UD PO SCH ×2 (10:24→13:34)
[2018-05-05] MEDS: Potassium Chloride 20 mEq/15 ml LIQ UD PO SCH (10:25)
--- NOTE | 2018-05-05 12:55 | CP.PCM.PN ---
Subjective - Date & Time of Evaluation Date of Evaluation: 05/05/18 Time of Evaluation: 10:30 - Subjective Subjective: clinically same Objective - Vital Signs/Intake and Output Vital Signs (last 24 hours): Temp Pulse Resp BP Pulse Ox 98.3 F 96 H 20 106/66 100 05/05/18 07:35 05/05/18 07:35 05/05/18 07:35 05/05/18 07:35 05/05/18 07:35 Intake and Output: 05/05/18 05/05/18 06:59 18:59 Intake Total 350 Balance 350 - Medications Medications: Current Medications Apixaban (Eliquis) 5 mg PO BID [facility] Last Admin: 05/05/18 10:24 Dose: 5 mg Calcium Carbonate (Oscal) 500 mg PO DAILY [facility] Last Admin: 05/05/18 10:25 Dose: 500 mg Ergocalciferol (Drisdol 50,000 Intl Units Cap) 1 cap PO Q7D [facility] Last Admin: 05/03/18 11:28 Dose: Not Given Magnesium Oxide (Mag-Ox) 800 mg PO TID [facility] Last Admin: 05/05/18 10:24 Dose: 800 mg Morphine Sulfate (Morphine) 2 mg IVP Q2 PRN PRN Reason: pain Last Admin: 05/05/18 06:25 Dose: 2 mg Pantoprazole Sodium (Protonix Inj) 40 mg IVP Q12H [facility]CLUD[facility] Last Admin: 05/05/18 07:37 Dose: 40 mg Potassium Chloride (Potassium Chloride Oral Soln) 20 meq PO DAILY [facility] Last Admin: 05/05/18 10:25 Dose: 20 meq Saliva Substitute (First Magic Mouthwash) 10 ml PO Q6 [facility] Last Admin: 05/05/18 06:17 Dose: 10 ml - Labs Labs: 05/04/18 15:13 05/03/18 06:52 PT 16.8 SECONDS (9.7-12.2) H 04/12/18 06:10 INR 1.5 04/12/18 06:10 APTT 28 SECONDS (21-34) 04/12/18 06:10
--- NOTE | 2018-05-05 14:11 | CP.PCM.PN ---
Subjective - Date & Time of Evaluation Date of Evaluation: 05/05/18 Time of Evaluation: 14:10 - Subjective Subjective: Nephrology Consultation Note: Assessment: Stable Hypomagnesemia Hypokalemia likley due to cachil dehe based chemotherapy induced renal wasting as evident by high TTKG and high FeMag Hyponatremia likely SIADH Hypoalbuminemia Obesity, Colitis, GI bleed pancytopenia metastatic breast CA vit d def DVT Plan renal function stable and WNL. Hypertension control with meds as ordered. Maintain hemodynamics stable. Avoid hypotension. Monitor Input/Output, daily weights and renal function with basic metabolic panel supplement lytes as needed anemia management as per heme/onc added weekly vit d Dose meds/antibiotics for normal GFR. Glycemic control. pt was encouraged to eat protein food Further work up/management as per primary team Thanks for allowing me to participate in care of your patient. Will follow patient with you. Please call if any Qs. had d/w team Dr Ton Zelaya Office: [phone] Chief Complaint; low appetite Reason for consult: electrolytes abnormalities HPI: Pt is a 58 F with hx of hypertension obesity metastatic breast CA involving brain, sp radiation, presently on chemo with carboplatin and gemcitabine presented with complaints of paina abdomen and diarrhoea, admitted with ? GI bleed, colitis and pancytopenia. renal consult for electrolytes abnormalities such as low Na, Ca, Mg, K Denies OTC/herbal meds or NSAIDs c/o decreased appetite, loss of taste. no SOB. no further diarrhoea. oral intake better ROS: c/o leg swelling Cardiovascular: No chest pain. Pulmonary: no shortness of breath at present. Gastrointestinal: denies abdominal pain No nausea. No vomiting. had upset stomach Genitourinary: No pain while urinating. Denies blood in urine. All other negative except as mentioned in HPI Physical Examination: General Appearance: Comfortable, in no acute respiratory distress, co-operative . obese Vitals reviewed and noted as below Head; Atraumatic, normocephalic. skin hyperpigmented ENT: no ulcers no thrush. Tongue is midline. Oropharynx: no rash or ulcers. EYES: Pupils are equal, round and reactive to light accommodation. Eye muscles and extraocular movement intact. Sclera is anicteric. Neck; supple no lymphadenopathy, no thyromegaly or bruit Lungs: Normal respiratory rate/effort. Breath sounds bilateral equal and clear Heart: Normal rate. s1s2 normal. No rub or gallop. Extremities: 1+ edema. No varicose veins. RUE lymphedema + Neurological: Patient is alert, awake and oriented to person, place and time. No focal deficit. Strength bilateral appropriate and equal Skin: Warm and dry. Normal turgor. No rash. Palpitation: Normal elasticity for age Abdomen: Abdomen is soft. Bowel sounds +. There is no abdominal tenderness, no guarding/rigidity no organomegaly Psych: normal insight and normal affect/mood MSK: no joint tenderness or swelling. Digits and nails normal, no deformity : kidney or bladder not palpable Labs/imaging reviewed. Past medical history, past surgical history, family history, social history, allergy reviewed and noted as below Family hx: no hx of CKD. Rest non-contributory TTKG 7 FeMag 35% Objective - Vital Signs/Intake and Output Vital Signs (last 24 hours): Temp Pulse Resp BP Pulse Ox 98.3 F 96 H 20 106/66 100 05/05/18 07:35 05/05/18 07:35 05/05/18 07:35 05/05/18 07:35 05/05/18 07:35 Intake and Output: 05/05/18 05/05/18 06:59 18:59 Intake Total 350 Balance 350 - Medications Medications: Current Medications Apixaban (Eliquis) 5 mg PO BID [facility] Last Admin: 05/05/18 10:24 Dose: 5 mg Calcium Carbonate (Oscal) 500 mg PO DAILY [facility] Last Admin: 05/05/18 10:25 Dose: 500 mg Ergocalciferol (Drisdol 50,000 Intl Units Cap) 1 cap PO Q7D [facility] Last Admin: 05/03/18 11:28 Dose: Not Given Magnesium Oxide (Mag-Ox) 800 mg PO TID [facility] Last Admin: 05/05/18 13:34 Dose: Not Given Morphine Sulfate (Morphine) 2 mg IVP Q2 PRN PRN Reason: pain Last Admin: 05/05/18 12:55 Dose: 2 mg Pantoprazole Sodium (Protonix Inj) 40 mg IVP Q12H [facility] Last Admin: 05/05/18 07:37 Dose: 40 mg Potassium Chloride (Potassium Chloride Oral Soln) 20 meq PO DAILY [facility] Last Admin: 05/05/18 10:25 Dose: 20 meq Saliva Substitute (First Magic Mouthwash) 10 ml PO Q6 [facility] Last Admin: 05/05/18 12:55 Dose: 10 ml - Labs Labs: 05/04/18 15:13 05/03/18 06:52 PT 16.8 SECONDS (9.7-12.2) H 04/12/18 06:10 INR 1.5 04/12/18 06:10 APTT 28 SECONDS (21-34) 04/12/18 06:10
--- NOTE | 2018-05-05 15:29 | PN ---
DATE: 05/05/2018 LOCATION: 656, bed B. SUBJECTIVE: This is a 58-year-old female seen and examined early in rounds, was scheduled to be discharged home, in a status of DNR and DNI without reported GI bleeding. The entire chart is reviewed including but not limited to most recent lab results. Today's lab results still pending, but the patient's latest hemoglobin is 8.8, hematocrit 27.2 with low indices, highly suggestive of hypochromic microcytic anemia with low magnesium of 1.4 and low creatinine. PHYSICAL EXAMINATION: GENERAL: A 58-year-old female. VITAL SIGNS: Afebrile with pulse of 92, respiratory rate 20-22, blood pressure of 110/64. HEENT: Pale dry oral mucous membrane. Nonicteric sclerae. LUNGS: Few scattered crepitation. Decreased air entry at bases. HEART: Positive S1 and S2. ABDOMEN: Soft with mild generalized tenderness. No mass or organomegaly. No rebound tenderness or guarding. EXTREMITIES: Without significant clubbing or cyanosis, but lower extremities mild edematous changes. NEUROLOGIC: No reported new neurological deficits, sensory or motor. IMPRESSION: 1. Hypochromic microcytic anemia. 2. Recent history of rectal bleeding, subsided with abnormal CAT scan of the abdomen and pelvis, which could be secondary to ischemic colitis at that time. 3. Re-exacerbation of peptic ulcer disease. 4. 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 5. Known history of deep venous thrombosis. 6. Electrolyte imbalance. SUGGESTIONS: 1. Continue current management. 2. No aggressive GI workup as the family refused any potential PEG insertion or endoscopic evaluation of the GI tract. Will sign off the case. Follow up with you only gerry. Verito Fish MD
--- NOTE | 2018-05-05 21:40 | CP.PCM.PN ---
Subjective - Date & Time of Evaluation Date of Evaluation: 05/04/18 Time of Evaluation: 12:00 - Subjective Subjective: Feeling better. Objective - Vital Signs/Intake and Output Vital Signs (last 24 hours): Temp Pulse Resp BP Pulse Ox 98.3 F 96 H 20 106/66 100 05/05/18 07:35 05/05/18 07:35 05/05/18 07:35 05/05/18 07:35 05/05/18 07:35 Intake and Output: 05/05/18 05/06/18 18:59 06:59 Intake Total 300 Output Total 400 Balance -100 - Labs Labs: 05/04/18 15:13 05/03/18 06:52 PT 16.8 SECONDS (9.7-12.2) H 04/12/18 06:10 INR 1.5 04/12/18 06:10 APTT 28 SECONDS (21-34) 04/12/18 06:10 - Head Exam Head Exam: ATRAUMATIC - Eye Exam Eye Exam: Normal appearance - ENT Exam ENT Exam: Mucous Membranes Dry - Respiratory Exam Respiratory Exam: NORMAL BREATHING PATTERN - Cardiovascular Exam Cardiovascular Exam: +S1, +S2 - GI/Abdominal Exam GI & Abdominal Exam: Normal Bowel Sounds Assessment and Plan (1) DVT (deep venous thrombosis) Assessment & Plan: on Eliquis Status: Acute (2) Anemia Assessment & Plan: chronic disease Status: Acute (3) Breast cancer Assessment & Plan: stage IV outpatient treatment Status: Acute
--- NOTE | 2018-05-05 21:41 | CP.PCM.PN ---
Subjective - Date & Time of Evaluation Date of Evaluation: 05/05/18 Time of Evaluation: 12:00 - Subjective Subjective: Nervous to go home Objective - Vital Signs/Intake and Output Vital Signs (last 24 hours): Temp Pulse Resp BP Pulse Ox 98.3 F 96 H 20 106/66 100 05/05/18 07:35 05/05/18 07:35 05/05/18 07:35 05/05/18 07:35 05/05/18 07:35 Intake and Output: 05/05/18 05/06/18 18:59 06:59 Intake Total 300 Output Total 400 Balance -100 - Labs Labs: 05/04/18 15:13 05/03/18 06:52 PT 16.8 SECONDS (9.7-12.2) H 04/12/18 06:10 INR 1.5 04/12/18 06:10 APTT 28 SECONDS (21-34) 04/12/18 06:10 - Head Exam Head Exam: ATRAUMATIC - Eye Exam Eye Exam: Normal appearance - ENT Exam ENT Exam: Mucous Membranes Dry - Respiratory Exam Respiratory Exam: NORMAL BREATHING PATTERN - Cardiovascular Exam Cardiovascular Exam: +S1, +S2 - GI/Abdominal Exam GI & Abdominal Exam: Normal Bowel Sounds Assessment and Plan (1) DVT (deep venous thrombosis) Assessment & Plan: on Eliquis Status: Acute (2) Anemia Assessment & Plan: chronic disease Status: Acute (3) Breast cancer Assessment & Plan: stage IV outpatient treatment Status: Acute
== END 2018-05-05 16:07 | disposition home health service (06) | DRG 584 ==
LOC: C.ER 09:42 → C.9E 17:15 → C.9I 18:54 → C.6T 04-17 14:46
PROVIDERS: ADMIT Internal Medicine Nephrology; ATTEND Internal Medicine Nephrology
PROC: 30233K1 Transfusion of Nonautologous Frozen Plasma into Peripheral Vein, Percutaneous Approach (ICD-10-PCS; principal; 2018-04-11)
PROC: 30233N1 Transfusion of Nonautologous Red Blood Cells into Peripheral Vein, Percutaneous Approach (ICD-10-PCS; 2018-04-12)
PROC: 6A551Z2 Pheresis of Platelets, Multiple (ICD-10-PCS; 2018-04-12)
DX: A41.50 Gram-negative sepsis, unspecified (principal); D61.810 Antineoplastic chemotherapy induced pancytopenia; K68.12 Psoas muscle abscess; I82.413 Acute embolism and thrombosis of femoral vein, bilateral; L89.159 Pressure ulcer of sacral region, unspecified stage; B37.0 Candidal stomatitis; B37.49 Other urogenital candidiasis; C79.51 Secondary malignant neoplasm of bone; C79.31 Secondary malignant neoplasm of brain; C79.89 Secondary malignant neoplasm of other specified sites; M84.40XA Pathological fracture, unspecified site, initial encounter for fracture; J98.11 Atelectasis; E87.6 Hypokalemia; E22.2 Syndrome of inappropriate secretion of antidiuretic hormone; E46 Unspecified protein-calorie malnutrition; C78.00 Secondary malignant neoplasm of unspecified lung; D50.0 Iron deficiency anemia secondary to blood loss (chronic); C79.81 Secondary malignant neoplasm of breast; B95.8 Unspecified staphylococcus as the cause of diseases classified elsewhere; C50.911 Malignant neoplasm of unspecified site of right female breast; R11.2 Nausea with vomiting, unspecified; K27.9 Peptic ulcer, site unspecified, unspecified as acute or chronic, without hemorrhage or perforation; F32.9 Major depressive disorder, single episode, unspecified; I10 Essential (primary) hypertension; J45.909 Unspecified asthma, uncomplicated; K55.9 Vascular disorder of intestine, unspecified; T45.1X5A Adverse effect of antineoplastic and immunosuppressive drugs, initial encounter; E77.8 Other disorders of glycoprotein metabolism; E83.42 Hypomagnesemia; E55.9 Vitamin D deficiency, unspecified; D70.1 Agranulocytosis secondary to cancer chemotherapy; E86.0 Dehydration; E66.9 Obesity, unspecified; Z53.09 Procedure and treatment not carried out because of other contraindication; Z66 Do not resuscitate; Z51.5 Encounter for palliative care; Z17.0 Estrogen receptor positive status [ER+]; Z90.13 Acquired absence of bilateral breasts and nipples; Z87.01 Personal history of pneumonia (recurrent); Z92.3 Personal history of irradiation; Z74.01 Bed confinement status; Z80.51 Family history of malignant neoplasm of kidney; Z80.0 Family history of malignant neoplasm of digestive organs

== ENCOUNTER 2018-05-29 02:14 | Inpatient (IN) | payer OTHER | END 2018-06-10 19:51 | LOC: C.ER 02:14 → C.9E 08:58 → C.5S 10:16 ==

== ENCOUNTER 2018-06-13 12:09 | Emergency (ER) | payer OTHER ==
[2018-06-13 12:10] VITALS: BMI 50.1
[2018-06-13 12:16] VITALS: RESP 18; TEMP 98
--- NOTE | 2018-06-13 12:27 | C.PDOC ---
History Of Present Illness Patient is a 58 year old female, with a PMHx of metastatic breast cancer, who presents to the ED from [facility] [place] after an Xray done there showed a possible IJ catheter misplacement. Patient was sent to the ED to confirm catheter's placement. She denies any CP, SOB, nausea, vomiting, fever, or bleeding from catheter site. Time Seen by Provider: 06/13/18 12:22 Chief Complaint (Nursing): Medical Clearance History Per: Patient, EMS History/Exam Limitations: no limitations Recent travel outside of the [place]: No Additional History Per: Patient, EMS Past Medical History Reviewed: Historical Data, Nursing Documentation, Vital Signs Vital Signs: Last Vital Signs Temp 98.0 F 06/13/18 12:15 Pulse 83 06/13/18 12:15 Resp 18 06/13/18 12:15 BP 104/72 06/13/18 12:15 Pulse Ox 98 06/13/18 12:15 - Medical History PMH: Asthma (CHILDHOOD NO MEDS), Fractures (TOE/ARM NO SURGERY), HTN, Malignancy (BREAST CANCER on chemotherapy), Pneumonia (Childhood) Denies: Atrial Fibrillation, Bronchitis, Cardia Arrhythmia, CHF, COPD, Emphysema, Hypercholesterolemia, Mitral Valve Prolapse, Peripheral Edema, Pulmonary Embolism, Chronic Kidney Disease, Sleep Apnea Surgical History: Denies: Pacemaker - [facility] Procedures CONTACT RADIATION OF HEAD AND NECK (02/23/18) CONTRAST PHLEBOGRAM NEC (04/10/14) DX ULTRASOUND-THORAX NEC (11/09/13) ENDO RECTUM POLYPECTOMY (11/30/12) EXCISION OF RIGHT LOWER LUNG LOBE, PERC APPROACH, DIAGN (07/08/17) FLUOROSCOPY OF INFERIOR VENA CAVA, GUIDANCE (10/17/17) INSERTION OF INTRALUM DEV INTO INF VENA CAVA, PERC APPROACH (10/17/17) INSERTION OF TOTALLY IMPLANTABLE VASC ACCESS DEVIC (11/09/13) LOCAL EXCIS BREAST LES (08/17/13) LYMPHATIC STRUCT BIOPSY (08/17/13) PHERESIS OF PLATELETS, MULTIPLE (04/11/18) REMOVAL OF INTRALUMINAL DEVICE FROM LOW VEIN, PERC APPROACH (10/17/17) REVISION OF VAD IN TRUNK SUBCU/FASCIA, PERC APPROACH (07/08/17) THORAX SFT TISS XRAY NEC (11/09/13) TRANSFUSE NONAUT FROZEN PLASMA IN PERIPH VEIN, PERC (04/11/18) TRANSFUSE NONAUT RED BLOOD CELLS IN PERIPH VEIN, PERC (04/11/18) UNILAT EXTEN SIMP MASTEC (07/05/14) UNILAT REDUCT MAMMOPLAST (07/05/14) Family History: States: Unknown Family Hx - Social History Hx Tobacco Use: No Hx Alcohol Use: No Hx Substance Use: No - Immunization History Hx Tetanus Toxoid Vaccination: No Hx Influenza Vaccination: No Hx Pneumococcal Vaccination: No Review Of Systems Except As Marked, All Systems Reviewed And Found Negative. Constitutional: Negative for: Fever Cardiovascular: Negative for: Chest Pain Respiratory: Negative for: Shortness of Breath Gastrointestinal: Negative for: Nausea, Vomiting Physical Exam - Physical Exam Appears: Non-toxic, No Acute Distress Skin: Normal Color, Warm, Dry Head: Atraumatic, Normacephalic Oral Mucosa: Moist Neck: Normal ROM, Supple Chest: Symmetrical, No Deformity Cardiovascular: Rhythm Regular, No Murmur Respiratory: Normal Breath Sounds, No Rales, No Rhonchi, No Wheezing Gastrointestinal/Abdominal: Soft, No Tenderness Extremity: Normal ROM Neurological/Psych: Oriented x3, Normal Speech, Normal Cognition ED Course And Treatment O2 Sat by Pulse Oximetry: 98 (on RA) Pulse Ox Interpretation: Normal - CT Scan/US CAT Chest Other Rad Studies (CT/US): Read By Radiologist, Radiology Report Reviewed CT/US Interpretation: This report is currently processing and HAS NOT BEEN OFFICIALLY SIGNED BY THE PHYSICIAN - ESTIMATED TIME OF APPROVAL IS 06/13/2018 14:37. Date of service: 06/13/2018. CT chest without IV contrast. Indication: IJ cath position. Technique: Contiguous axial images were obtained through the chest without intravenous contrast enhancement. Sagittal and coronal reconstructions were generated and reviewed. This CT exam was performed using 1 or more of the following dose reduction techniques: Automated exposure control, adjustment of the MAA and/or kV according to patient size, and/or use of iterative reconstruction technique. . Radiation dose (DLP): 704.13 MGy-cm. Comparison: Chest x-ray performed 04/11/18, CTA chest performed 07/06/17. Findings: Left IJ approach central venous catheter tip location is difficult to assess on a noncontrast examination however when contrast enhanced study performed 07/06/17 is reviewed it appears to terminate within a left sided duplicated SVC. Heart size appears within normal limits. Trace pericardial fluid. Numerous pulmonary nodules. Right lower lobe mass measures approximately 1.8 x 3.0 cm (coronal image 73). 12 mm right apical nodule or focus of scarring. 5 mm right upper lobe nodule (series 3, image 32). 12 mm right middle lobe nodule (series 3, image 46). 9 mm left lower lobe nodule, superior aspect (image 52). Moderate- sized right and small left pleural effusions which appear somewhat high in density, unclear if this is artifactual or related to content of pleural fluid. Atelectasis noted in the right middle lobe. No pneumothorax. Limited visualization of the noncontrast upper abdomen: IVC filter. Fatty atrophy of the pancreas. . Osseous demineralization. Extensive degenerative changes of the spine including confluent anterior osteophyte formation. Left posterior 10th rib with osseous destruction worrisome for osseous metastases. Impression: Numerous pulmonary nodules. Right lower lobe mass measuring approximately 1.3 x 3.0 cm. Largest nodule on the left measures approximately 9 mm. Moderate- sized right and small left pleural effusions which appear somewhat high in density, unclear if this is artifactual or related to content of pleural fluid. Atelectasis noted within the right middle lobe. 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 Limited visualization of the noncontrast upper abdomen: IVC filter. Fatty atrophy of the pancreas. . Left posterior 10th rib with osseous destruction worrisome for osseous metastases. Progress Note: Plan: CAT Chest. Spoke to Dr. Lilli Mitchell. Stated that he wants CT to confirm placement and to sent patient back if it is in the correct place. Spoke with (radiologist). IJ is on the same place it was before (as per previous CT). Case was d/w who instructed to send patient [facility] to [facility]. Disposition - Disposition Disposition: TRANSF TO SNF Disposition Time: 15:15 Condition: FAIR Forms: [facility] (Indonesian) - Clinical Impression Clinical Impression: Central venous catheter in place - PA / FOOD CASHIER / Resident Statement MD/DO has examined the patient and agrees with the treatment plan. - Scribe Statement The provider has reviewed the documentation as recorded by the Cayla Sevilla All medical record entries made by the Scribe were at my direction and personally dictated by me. I have reviewed the chart and agree that the record accurately reflects my personal performance of the history, physical exam, medical decision making, and the department course for this patient. I have also personally directed, reviewed, and agree with the discharge instructions and disposition.
--- NOTE | 2018-06-13 14:36 | CT ---
Date of service: 06/13/2018 CT chest without IV contrast Indication: IJ cath position Technique: Contiguous axial images were obtained through the chest without intravenous contrast enhancement. Sagittal and coronal reconstructions were generated and reviewed. This CT exam was performed using 1 or more of the following dose reduction techniques: Automated exposure control, adjustment of the MAA and/or kV according to patient size, and/or use of iterative reconstruction technique. Radiation dose (DLP): 704.13 MGy-cm. Comparison: Chest x-ray performed 04/11/18, CTA chest performed 07/06/17 Findings: Left IJ approach central venous catheter tip location is difficult to assess on a noncontrast examination however when contrast enhanced study performed 07/06/17 is reviewed it appears to terminate within a left sided duplicated SVC. Heart size appears within normal limits. Trace pericardial fluid. Numerous pulmonary nodules. Right lower lobe mass measures approximately 1.8 x 3.0 cm (coronal image 73). 12 mm right apical nodule or focus of scarring. 5 mm right upper lobe nodule (series 3, image 32). 12 mm right middle lobe nodule (series 3, image 46). 9 mm left lower lobe nodule, superior aspect (image 52). Moderate-sized right and small left pleural effusions which appear somewhat high in density, unclear if this is artifactual or related to content of pleural fluid. Atelectasis noted in the right middle lobe. No pneumothorax. Limited visualization of the noncontrast upper abdomen: IVC filter. Fatty atrophy of the pancreas. Osseous demineralization. Extensive degenerative changes of the spine including confluent anterior osteophyte formation. Left posterior 10th rib with osseous destruction worrisome for osseous metastases. Impression: Numerous pulmonary nodules. Right lower lobe mass measuring approximately 1.3 x 3.0 cm. Largest nodule on the left measures approximately 9 mm. Moderate-sized right and small left pleural effusions which appear somewhat high in density, unclear if this is artifactual or related to content of pleural fluid. Atelectasis noted within the right middle lobe. 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 Limited visualization of the noncontrast upper abdomen: IVC filter. Fatty atrophy of the pancreas. Left posterior 10th rib with osseous destruction worrisome for osseous metastases.
[2018-06-13 14:49] VITALS: BP 119/77; PULSE 82
[2018-06-13 15:16] VITALS: O2SAT 98
== END 2018-06-13 17:51 ==
LOC: C.ER 12:09
DX: Z45.2 Encounter for adjustment and management of vascular access device (principal); I10 Essential (primary) hypertension; Z85.3 Personal history of malignant neoplasm of breast